=== PATIENT | male | born 1965 | race Caucasian/White ===

== ENCOUNTER 2018-06-02 06:29 | Observation (INO) ==
[2018-06-02 06:49] LABS: Basophils # 0.1 K/mm3 (0-0.2); Eosinophils # 0.3 K/mm3 (0.0-0.4); Eosinophils % 4.3 % (0.1-12.0); Hematocrit 43.8 % (42.0-52.0); Hemoglobin 15.4 g/dL (14.1-18.0); Lymphocytes # 2.5 K/mm3 (0.7-4.5); Lymphocytes % 33.1 K/mm3 (10-50); Mean Corpuscular HGB Conc 35.1 g/dL (31.8-35.4); Mean Corpuscular Hemoglobin 32.2 pg (27.0-31.2); Mean Corpuscular Volume 91.6 fl (80-94); Mean Platelet Volume 7.7 fl (7.4-10.4); Monocytes # 0.5 K/mm3 (0.1-1.0); Monocytes % 6.7 % (1.7-9.3); Neutrophils # 4.1 K/mm3 (1.8-7.8); Platelet Count 180 K/mm3 (142-424); Red Blood Count 4.78 M/mm3 (4.60-6.20); Red Cell Distribution Width 13.9 % (11.5-17.5); White Blood Count 7.5 K/mm3 (4.8-10.8)
[2018-06-02 07:15] LABS: Alanine Aminotransferase 50 U/L (12-78); Albumin Level 3.5 gm/dL (3.4-5.0); Albumin/Globulin Ratio 1.1 (1.1-1.8); Alkaline Phosphatase 70 U/L (46-116); Amylase 48 U/L (25-125); Anion Gap 13.2 mEq/L (5-15); Aspartate Amino Transferase 31 U/L (15-37); Bilirubin,Total 0.4 mg/dL (0.2-1.0); Blood Urea Nitrogen 16 mg/dL (7-18); Calcium 8.5 mg/dL (8.5-10.1); Carbon Dioxide 26 mmol/L (21.0-32.0); Chloride 105 mmol/L (98-107); Globulin 3.2 gm/dl (1.3-3.2); Potassium 4.2 mmoL/L (3.5-5.1); Sodium 140 mmol/L (136-145); Total Protein,Serum 6.7 gm/dL (6.4-8.2)
[2018-06-02 07:18] LABS: Glucose 132 mg/dL (74-106)
[2018-06-02 07:19] LABS: C-Reactive Protein < 0.2 mg/L (0.0-0.9)
[2018-06-02 07:40] LABS: Erythrocyte Sedimentation Rate 0 mm/hr (0-20)
--- NOTE | 2018-06-02 07:42 | Emergency Department Note ---
ED Disposition Condition on Discharge: Good - Critical Care Critical Care Time: No <Boston Kimble S - Last Filed: 06/02/18 08:05> Condition on Discharge: Fair - Critical Care Critical Care Time: No <Selvin Richardson - Last Filed: 06/02/18 10:08> Clinical Impression: Acute cholecystitis, Colitis, Prostate enlargement, Cholelithiasis, Prostatic mass, Diverticulosis Disposition: Still a Patient Instructions: DI for Acute Abdomen Referrals: Rolanda Acosta APRN [Primary Care Provider] - Attestation: On 06/02/18, the high probability of a clinically significant, sudden or life threatening deterioration of the following system(s) required my full and direct attention, intervention and personal management. The time I documented below is in addition to time spent performing reported procedures but includes the following listed in this critical care notation. Medical Decision Making - Medical Records Medical records reviewed: Yes: I reviewed the patient's medical records. - Abdirahman Inquiry Pt receiving controlled substance: No - Lab Data Lab results reviewed: Yes: I reviewed the patient's lab results. Result diagrams: 06/02/18 06:03 06/02/18 06:03 - CT Data CT Scan: Abdomen, Pelvis Time Received: 07:[address] Reviewed: Yes: I have viewed the radiologist's interpretation Preliminary Findings: Abnormal (gallstones and colitis and abn prostate ) - ECG Data Tracing #1 I reviewed this ECG and interpreted as documented below: Normal Sinus Rhythm: Yes Ischemic changes: non-specific ST-T wave changes <Boston Kimble S - Last Filed: 06/02/18 08:05> - Abdirahman Inquiry Pt receiving controlled substance: No Abdirahman was queried for this patient: No - Lab Data Lab results reviewed: Yes: I reviewed the patient's lab results. Result diagrams: 06/02/18 06:03 06/02/18 06:03 <Selvin Richardson - Last Filed: 06/02/18 10:08> Vital Signs: 06/02/18 06:29 06/02/18 07:26 06/02/18 08:10 Temperature 98.8 F Temperature Source Oral Pulse Rate [Right] 73 60 60 Respiratory Rate 20 Blood Pressure [Right Arm] 170/100 H 139/72 119/71 Blood Pressure Mean [Right Arm] 123 94 87 Blood Pressure Source [Right Arm] Automatic Cuff Automatic Cuff Blood Pressure Position [Right Arm] Supine Sitting 02 Sat by Pulse Oximetry 98 97 94 L Oxygen Delivery Method Room Air 06/02/18 09:08 06/02/18 09:30 Temperature Temperature Source Pulse Rate [Right] 63 64 Respiratory Rate Blood Pressure [Right Arm] 163/80 H 163/80 H Blood Pressure Mean [Right Arm] 107 107 Blood Pressure Source [Right Arm] Automatic Cuff Automatic Cuff Blood Pressure Position [Right Arm] Supine Supine 02 Sat by Pulse Oximetry 97 97 Oxygen Delivery Method - Lab Data Lab Results 06/02/18 06:03: WBC 7.5, RBC 4.78, Hgb 15.4, Hct 43.8, MCV 91.6, MCH 32.2 H, MCHC 35.1, RDW 13.9, Plt Count 180, MPV 7.7, Neut % (Auto) 55.0, Lymph % (Auto) 33.1, [place] % (Auto) 6.7, Eos % (Auto) 4.3, Baso % (Auto) 1.0, Neut # (Auto) 4.1, Lymph # (Auto) 2.5, [place] # (Auto) 0.5, Eos # (Auto) 0.3, Baso # (Auto) 0.1, ESR 0 06/02/18 06:03: Sodium 140, Potassium 4.2, Chloride 105, Carbon Dioxide 26, Anion Gap 13.2, BUN 16, Creatinine 1.22, Estimated Creat Clear 109, Estimated GFR 62, Est GFR ( Amer) 75, Glucose 132 H, Calcium 8.5, Total Bilirubin 0.4, AST 31, ALT 50, Alkaline Phosphatase 70, Troponin I < 0.02, C-Reactive Protein < 0.2, Total Protein 6.7, Albumin 3.5, Globulin 3.2, Albumin/Globulin Ra paulino 1.1, Amylase 48 06/02/18 06:03: Lipase 150 06/02/18 08:10: Urine Color Yellow, Urine Appearance Clear, Urine pH 5.5, Ur Specific [place] >= 1.030, Urine Protein Negative, Urine Glucose (UA) Negative, Urine Ketones Negative, Urine Blood Negative, Urine Nitrate Negative, Urine Bilirubin Negative, Urine Urobilinogen 0.2, Ur Leukocyte Esterase Negative, Urine RBC None, Urine WBC Occasional, Ur Squamous Epith Cells 3-5, Urine Bacteria 1+ Orders (Tests/Meds): ED MEDICATIONS Discontinued Medications Generic Name Dose Route Start Last Admin Trade Name Emely PRN Reason Stop Dose Admin Famotidine 20 mg 06/02/18 06:33 06/02/18 06:48 Pepcid 20mg/2ml Vial IV 06/02/18 06:34 20 mg ONCE ONE Administration Hydromorphone HCl 1 mg 06/02/18 08:19 06/02/18 08:21 Dilaudid 2mg/Ml Syringe IV 06/02/18 08:20 1 mg ONCE ONE Administration Sodium Chloride 1,000 mls @ 999 mls/hr 06/02/18 06:45 06/02/18 06:49 Sod Chlor 0.9% 1000ml Bag IV 06/02/18 07:45 999 mls/hr .Q1H1M TAMMY Administration Ketorolac Tromethamine 30 mg 06/02/18 06:33 06/02/18 06:48 Toradol 30mg/Ml Vial IV 06/02/18 06:34 30 mg ONCE ONE Administration Metoclopramide HCl 10 mg 06/02/18 06:33 06/02/18 06:48 Reglan 10mg/2ml Vial IVP 06/02/18 06:34 10 mg ONCE ONE Administration Ondansetron HCl 4 mg 06/02/18 06:33 06/02/18 06:49 Zofran 4mg/2ml Vial IV 06/02/18 06:34 4 mg ONCE ONE Administration Ondansetron HCl 4 mg 06/02/18 08:20 06/02/18 08:21 Zofran 4mg/2ml Vial IV 06/02/18 08:21 4 mg ONCE ONE Administration ORDERS Category Date Time Status UA [Urinalysis and Microscopic] Stat Lab 06/02/18 08:10 Ordered Medical Decision Narrative: S;53 years old white male edema hypertension and CVA with no residual 2-1/2 years ago, also he has a prosthetic disease. The patient presented to the ED this morning with a 3-week history of upper abdominal pain following eating [place] and [place] food mostly greasy food associated with nausea radiating across his abdomen anterior posteriorly, in his own words "like a clamp". This morning the pain became worse rated 6/10 presented to the ED orders given Toradol for pain and later was given dilaudid for pain control 2/10. She denies having fever chills jaundice vomiting hematemesis coffee-ground emesis melanotic stool or diarrhea. O: VSS are afebrile, stable except for BP 170/100 mmhg. Patient is alert oriented x3 provided a detailed history above. Eye examination is PERRL without a jaundice, examination of the abdomen was obese soft with tenderness that is maximum over the right upper quadrant with positive Lennon sign,no guarding no rigidity no cross tenderness no rebound. Chestexam: is barrel-shaped clear to auscultation anteriorly and posteriorly, Cardiac exam: was regular rate and rhythm without a murmur. Lower extremity examination there was no edema good cap refill. Rectal examination was painless, good tone, mildly enlarged prostate with no nodule palpable. CXR: No acute. EKG was normal sinus rhythm baseline artifact 69/min no acute finding. CT scan of the abdomen: was positive for cholelithiasis, liver steatosis, enlarged prostate with a hypodense area anteriorly mid 5.2 x 3.5cm. Patient was signed out to me pending ultrasound to exclude cholecystitis. A/P: 1- GB stone 2- liver steatosis 3- prostatic mass 4- HTN 5- Hx of CVA 6- negative cardiac cth 2 -3 yrs ago. US is pending. 0950 rport: MPRESSION: 1. Limited study with fatty liver. 2. Limited evaluation of the gallbladder. There is question of small stones versus sludge. There is no gallbladder wall thickening, pericholecystic fluid, or ductal dilatation. (Boston Kimble) S;53 years old white male edema hypertension and CVA with no residual 2-1/2 years ago, also he has a prosthetic disease. The patient presented to the ED this morning with a 3-week history of upper abdominal pain following eating [place] and [place] food mostly greasy food associated with nausea radiating across his abdomen anterior posteriorly, in his own words "like a clamp". This morning the pain became worse rated 6/10 presented to the ED orders given Toradol for pain and later was given dilaudid for pain control 2/10. She denies having fever chills jaundice vomiting hematemesis coffee-ground emesis melanotic stool or diarrhea. O: VSS are afebrile, stable except for BP 170/100 mmhg. Patient is alert oriented x3 provided a detailed history above. Eye examination is PERRL without a jaundice, examination of the abdomen was obese soft with tenderness that is maximum over the right upper quadrant with positive Lennon sign,no guarding no rigidity no cross tenderness no rebound. Chestexam: is barrel-shaped clear to auscultation anteriorly and posteriorly, Cardiac exam: was regular rate and rhythm without a murmur. Lower extremity examination there was no edema good cap refill. Rectal examination was painless, good tone, mildly enlarged prostate with no nodule palpable. CXR: No acute. EKG was normal sinus rhythm baseline artifact 69/min no acute finding. CT scan of the abdomen: was positive for cholelithiasis, liver steatosis, enlarged prostate with a hypodense area anteriorly mid 5.2 x 3.5cm. Patient was signed out to me pending ultrasound to exclude cholecystitis. A/P: 1- GB stone 2- liver steatosis 3- prostatic mass 4- HTN 5- Hx of CVA 6- negative cardiac cth 2 -3 yrs ago. US is pending. 0950 US rport: MPRESSION: 1. Limited study with fatty liver. 2. Limited evaluation of the gallbladder. There is question of small stones versus sludge. There is no gallbladder wall thickening, pericholecystic fluid, or ductal dilatation. [address] Clayton the on-call surgeon who agreed to admit the patient for observation and possible surgery. I discussed with the patient his prostate abnormality and he requested to be seen by urology I be placing a consult. (Selvin Richardson) Nausea/Vomiting/Diarrhea HPI - General Mode of Arrival: Ambulatory Source of Information: Patient, Spouse, Medical Record Limitations: No Limitations Description of Symptoms (Recalled from ER Triage Doc. by RN): Pt c/o mid epigastric pain with left rib pain that radiates to arm. Denies vomiting, dizziness, or any other symptoms but does have nausea. - History of Present Illness MD complaint: nausea, vomiting, abdominal pain Onset (ago): day(s) Associated Abdominal Pain: Yes Location of pain: RUQ, epigastric Severity: moderate Associated symptoms: denies other symptoms, nausea/vomiting <Boston Kimble - Last Filed: 06/02/18 08:05> <Selvin Richardson - Last Filed: 06/02/18 10:08> - General Chief complaint: Abdominal Pain Stated complaint: abdominal pain Time Seen by Provider: 06/02/18 07:00 - History of Present Illness HPI Narrative: pt with upper abd pain which has inc in intensity over the last few weeks , worse with meals - pt has no fever and no diarrhea - he has had prev cva 3 yrs ago with sl lt upper ext residual- he reports overactive bladder denied any kn own prostate issues and not seen urology for 5 yrs (Boston Kimble) pt with upper abd pain which has inc in intensity over the last few weeks , worse with meals - pt has no fever and no diarrhea - he has had prev cva 3 yrs ago with sl lt upper ext residual- he reports overactive bladder denied any known prostate issues and not seen urology for 5 yrs (Selvin Richardson) - Related Data Home Medications Medication Instructions Recorded Confirmed Allopurinol [Allopurinol 300mg 300 mg PO DAILY 06/02/18 06/02/18 tablet] Amlodipine Besylate [Amlodipine 10 mg PO DAILY 06/02/18 06/02/18 10mg Tab] Aspirin [Aspirin 325mg Tab] 325 mg PO DAILY 06/02/18 06/02/18 Carvedilol [Carvedilol 3.125mg Tab] 3.125 mg PO DAILY 06/02/18 06/02/18 Diclofenac Sodium [Diclofenac 75mg 75 mg PO BID 06/02/18 06/02/18 Tab] Sildenafil Citrate [Sildenafil] 20 mg PO NEEDED PRN 06/02/18 06/02/18 Tamsulosin HCl [Flomax 0.4mg 0.4 mg PO HS 06/02/18 06/02/18 capsule] buPROPion HCl [Bupropion Xl] 150 mg PO DAILY 06/02/18 06/02/18 Allergies Allergy/AdvReac Type Severity Reaction Status Date / Time Sulfa (Sulfonamide Allergy Verified 06/02/18 06:52 Antibiotics) [facility] History I have reviewed the patient's past medical history: Yes - Social History Smoking Status: Never smoker Alcohol Intake: never - Psychiatric History Expresses thoughts of harming self/others: None Suicide Plan Description: No Plan <Boston Kimble - Last Filed: 06/02/18 08:05> ROS Obtained: Yes All systems reviewed & no additional complaints - Constitutional Constitutional: Denies fever(s) - Eyes Eyes: Denies change in vision - ENT Ears, Nose, Mouth, and Throat: Denies sore throat - Cardiovascular Cardiovascular: Denies chest pain - Respiratory Respiratory: No cough - Gastrointestinal Gastrointestingal: Reports: abdominal pain, nausea, vomiting. Denies: diarrhea - Genitourinary Male Genitourinary: Denies flank pain, Denies hematuria, Reports urinary frequency - Musculoskeletal Musculoskeletal: Denies joint pain - Integumentary/Breasts Skin/Breast: Denies rash - Neurologic Neurologic: Denies headache(s), Denies seizure-like activity <Boston Kimble - Last Filed: 06/02/18 08:05> Physical Exam - General General appearance: in no apparent distress - Head Head exam: normocephalic - Eye Eye exam: Present: PERRL, EOMI - ENT ENT exam: Present: mucous membranes moist - Neck Neck exam: Present: trachea midline - Respiratory Respiratory exam: Present: normal lung sounds bilaterally - Cardiovascular Cardiovascular exam: Present: regular rate, systolic murmur - Abdominal Exam Abdominal exam: Present: soft, tenderness, Lennon's sign Abdominal tenderness: Present: RUQ, moderate - Extremities Exam Extremities exam: Absent: calf tenderness - Neurological Exam Neurological exam: Present: alert, oriented X3, CN II-XII intact - Psychiatric Psychiatric exam: Present: normal affect - Skin Skin exam: Absent: rash <Boston Kimble - Last Filed: 06/02/18 08:05>
[2018-06-02 08:24] LABS: Microscopic, Urine URINE MICROSCOPIC (MICROSCOPIC)
[2018-06-02 08:28] LABS: Appearance,Urine CLEAR (Clear); Bilirubin,Urine Negative (Negative); Blood, Urine Negative (Negative); Color,Urine YELLOW (Yellow); Glucose,Urine (UA) Negative (Negative); Ketones,Urine Negative (Negative); Leukocyte Esterase,Urine Negative (Negative); PH,Urine 5.5 (5.0-8.5); Protein,Urine Negative (Negative); Specific Gravity, Urine >= 1.030 (1.005-1.030); Urobilinogen,Urine 0.2 EU/dl (0.2)
[2018-06-02 08:36] LABS: Bacteria,Urine 1+ /lpf; WBC,Urine Occasional #/hpf (0-3)
--- NOTE | 2018-06-02 12:38 | History & Physical Report ---
HPI HPI: This is a 53-year-old gentleman who presented to the emergency department this morning with a 3-week history of upper abdominal pain. He states that his symptoms are "worse with greasy food". Some associated nausea. No jaundice. No fevers. Please see a forwarded copy of HPI from the emergency department evaluation below: 53 years old white male edema hypertension and CVA with no residual 2-1/2 years ago, also he has a prosthetic disease. The patient presented to the ED this morning with a 3-week history of upper abdominal pain following eating [place] and [place] food mostly greasy food associated with nausea radiating across his abdomen anterior posteriorly, in his own words "like a clamp". This morning the pain became worse rated 6/10 presented to the ED orders given Toradol for pain and later was given dilaudid for pain control 10/03. She denies having fever chills jaundice vomiting hematemesis coffee-ground emesis melanotic stool or diarrhea. [facility] History Medical History: Reports:: Cerebrovascular Accident, Hypertension - *Social History Smoking Status: Never smoker Alcohol Intake: never - Psychiatric History Expresses thoughts of harming self/others: None Suicide Plan Description: No Plan Review of Systems - Constitutional Denies chills - Eyes Denies change in vision - ENT Denies change in voice - *Cardiovascular Denies chest pain - *Respiratory Denies cough - *Gastrointestinal Reports abdominal pain, Reports nausea, Denies bright, red blood in stools, Denies black, tarry stools - *Genitourinary Denies painful urination - *Musculoskeletal Denies abnormal walking - Integumentary/Breasts Denies change in skin color - *Neurologic Denies abnormal movements, Denies abnormal speech, Denies headache(s), Denies seizure-like activity - Psychiatric Denies anxiety - Endocrine Denies cold intolerance - Hematologic/Lymphatic Denies easy bleeding - Allergic/Immunologic Reports GI upset with certain foods Meds Home Medications Medication Instructions Recorded Confirmed Type Allopurinol [Allopurinol 300mg 300 mg PO DAILY 06/02/18 06/02/18 History tablet] Amlodipine Besylate [Amlodipine 10 mg PO DAILY 06/02/18 06/02/18 History 10mg Tab] Aspirin [Aspirin 325mg Tab] 325 mg PO DAILY 06/02/18 06/02/18 History Carvedilol [Carvedilol 3.125mg Tab] 3.125 mg PO DAILY 06/02/18 06/02/18 History Diclofenac Sodium [Diclofenac 75mg 75 mg PO BID 06/02/18 06/02/18 History Tab] Sildenafil Citrate [Sildenafil] 20 mg PO NEEDED PRN 06/02/18 06/02/18 History Tamsulosin HCl [Flomax 0.4mg 0.4 mg PO HS 06/02/18 06/02/18 History capsule] buPROPion HCl [Bupropion Xl] 150 mg PO BID 06/02/18 06/02/18 History Allergies Allergy/AdvReac Type Severity Reaction Status Date / Time Sulfa (Sulfonamide Allergy Verified 06/02/18 06:52 Antibiotics) Exam Vital signs and Labs for Last 24 Hours: Temp Pulse Resp BP Pulse Ox 98.9 F 67 16 120/73 96 06/02/18 12:26 06/02/18 12:26 06/02/18 12:26 06/02/18 12:26 06/02/18 11:00 Laboratory Results - last 24 hr 06/02/18 06:03: WBC 7.5, RBC 4.78, Hgb 15.4, Hct 43.8, MCV 91.6, MCH 32.2 H, MCHC 35.1, RDW 13.9, Plt Count 180, MPV 7.7, Neut % (Auto) 55.0, Lymph % (Auto) 33.1, [place] % (Auto) 6.7, Eos % (Auto) 4.3, Baso % (Auto) 1.0, Neut # (Auto) 4.1, Lymph # (Auto) 2.5, [place] # (Auto) 0.5, Eos # (Auto) 0.3, Baso # (Auto) 0.1, ESR 0 06/02/18 06:03: Sodium 140, Potassium 4.2, Chloride 105, Carbon Dioxide 26, Anion Gap 13.2, BUN 16, Creatinine 1.22, Estimated Creat Clear 109, Estimated GFR 62, Est GFR ( Amer) 75, Glucose 132 H, Calcium 8.5, Total Bilirubin 0.4, AST 31, ALT 50, Alkaline Phosphatase 70, Troponin I < 0.02, C-Reactive Protein < 0.2, Total Protein 6.7, Albumin 3.5, Globulin 3.2, Albumin/Globulin Ratio 1.1, Amylase 48 06/02/18 06:03: Lipase 150 06/02/18 08:10: Urine Color Yellow, Urine Appearance Clear, Urine pH 5.5, Ur Specific [place] >= 1.030, Urine Protein Negative, Urine Glucose (UA) Negative, Urine Ketones Negative, Urine Blood Negative, Urine Nitrate Negative, Urine Bilirubin Negative, Urine Urobilinogen 0.2, Ur Leukocyte Esterase Negative, Urine RBC None, Urine WBC Occasional, Ur Squamous Epith Cells 3-5, Urine Bacteria 1+ I & O for Last 24 hours: Intake & Output 05/31/18 06/01/18 06/02/18 06/03/18 11:59 11:59 11:59 11:59 Weight 240 lb 241 lb 4 oz - Constitutional no acute distress - *Routine HEENT Exam Head: Present: normocephalic, atraumatic - *Routine Neck Exam Present: full ROM - Routine Chest/Breast/Axilla Exam Chest wall: Absent: tenderness - *Routine Respiratory Exam Absent: respiratory distress - *Routine Cardiovascular Exam Present: RRR - *Routine Abdominal Exam Present: soft, tenderness. Absent: distended, rebound - *Routine Extremities Exam Present: full ROM. Absent: cyanosis, clubbing - Routine Back/Spine/Pelvis Exam Back/Spine: Present: full ROM - *Routine Skin Exam Present: intact - *Routine Neurological Exam Present: alert, oriented X3 - Routine Psychiatric Exam Present: normal affect Results - Results Lab Results Last 24 Hours:: Laboratory Results - last 24 hr 06/02/18 06:03: WBC 7.5, RBC 4.78, Hgb 15.4, Hct 43.8, MCV 91.6, MCH 32.2 H, MCHC 35.1, RDW 13.9, Plt Count 180, MPV 7.7, Neut % (Auto) 55.0, Lymph % (Auto) 33.1, [place] % (Auto) 6.7, Eos % (Auto) 4.3, Baso % (Auto) 1.0, Neut # (Auto) 4.1, Lymph # (Auto) 2.5, [place] # (Auto) 0.5, Eos # (Auto) 0.3, Baso # (Auto) 0.1, ESR 0 06/02/18 06:03: Sodium 140, Potassium 4.2, Chloride 105, Carbon Dioxide 26, Anion Gap 13.2, BUN 16, Creatinine 1.22, Estimated Creat Clear 109, Estimated GFR 62, Est GFR ( Amer) 75, Glucose 132 H, Calcium 8.5, Total Bilirubin 0.4, AST 31, ALT 50, Alkaline Phosphatase 70, Troponin I < 0.02, C-Reactive Protein < 0.2, Total Protein 6.7, Albumin 3.5, Globulin 3.2, Albumin/Globulin Ratio 1.1, Amylase 48 06/02/18 06:03: Lipase 150 06/02/18 08:10: Urine Color Yellow, Urine Appearance Clear, Urine pH 5.5, Ur Specific [place] >= 1.030, Urine Protein Negative, Urine Glucose (UA) Negative, Urine Ketones Negative, Urine Blood Negative, Urine Nitrate Negative, Urine Bilirubin Negative, Urine Urobilinogen 0.2, Ur Leukocyte Esterase Negative, Urine RBC None, Urine WBC Occasional, Ur Squamous Epith Cells 3-5, Urine Bacteria 1+ Assessment and Plan (1) Cholelithiasis Current visit: Yes Status: Acute Category: Medical Code(s): K80.20 - Calculus of gallbladder without cholecystitis without obstruction (2) Acute cholecystitis Current visit: Yes Status: Acute Category: Medical Code(s): K81.0 - Acute cholecystitis The patient is being scheduled for laparoscopic cholecystectomy to be performed later today. I have discussed the risks and benefits including, but not limited to: Bleeding Infection Damage to surrounding tissue Inherent risks of sedation The patient agrees to proceed. (3) Prostate enlargement Current visit: Yes Status: Acute Category: Medical Code(s): N40.0 - Benign prostatic hyperplasia without lower urinary tract symptoms Urology consultation pending (4) Prostatic mass Current visit: Yes Status: Acute Category: Medical Code(s): N42.9 - Disorder of prostate, unspecified
--- NOTE | 2018-06-02 14:46 | Progress Note ---
[facility] Anesthesia Checklist - Patient Identification Patient Identification: Arm Band, Verbal (Name & ) - Structural Data Admitted From: Inpatient Planned Operative Procedure/s: lap choly Consent for Planned Operative Procedure(s) Verified: Yes Verified Documents: Surgical Consent, History and Physical - NPO Status Verified Time NPO: 00:00 - Chart Verification Results Verified: CBC, BMP - Additional verifications Patient : No Anesthesia Reactions: No Hx Blood Transfusions: No Blood Transfusion Reaction: No Cephalosporin Allergy: No Previous Colonoscopy: No - Cardiovascular Assessment Heart Sounds: S1 & S2 Pulse Strength: Baseline Pulse Rhythm: Regular Peripheral Edema: No - Airway Assessment C-Spine Mobility Assessed: Yes TMJ Mobility Assessed: Yes Dentition: Good Dentition - Neurological Assessment Level of Consciousness: Awake, Alert, Appropriate Hx Seizures: No Numbness or tingling in extremities: No - Anesthesia Plan Anesthesia Risk discussed: Yes Anesthesia Plan: Verified ASA Class: II Anesthesia Type: General [facility] History I have reviewed the patient's past medical history: Yes Medical History: Reports:: Cerebrovascular Accident, Hypertension Other Surgeries: Yes: No Previous Surgery Amputation: No Fractures: No - *Social History Smoking Status: Never smoker Alcohol Intake: never - Psychiatric History Expresses thoughts of harming self/others: None Suicide Plan Description: No Plan
--- NOTE | 2018-06-02 15:33 | Pharmacy Consult Notes ---
[facility] Pharmacy VTE Monitoring - Patient Demographics Admission date: 06/02/18 Report Date: 06/02/18 Time: 15:32 Allergies/Adverse Reactions: Patient Allergies Sulfa (Sulfonamide Antibiotics) Allergy (Verified 06/02/18 06:52) Height: 1.78 m Weight: 109.429 kg Patient Problems: Current Active Problems Acute cholecystitis (Acute) Colitis (Acute) Prostate enlargement (Acute) Cholelithiasis (Acute) Prostatic mass (Acute) Diverticulosis (Acute) - VTE Risk Labs: VTE Related Lab Results Hgb 15.4 g/dL (14.1-18.0) 06/02/18 06:03 Hct 43.8 % (42.0-52.0) 06/02/18 06:03 Plt Count 180 K/mm3 (142-424) 06/02/18 06:03 BUN 16 mg/dL (7-18) 06/02/18 06:03 Creatinine 1.22 mg/dL (0.70-1.30) 06/02/18 06:03 Estimated Creat Clear 109 mL/min (0-300) 06/02/18 06:03 Was VTE Risk Assessment Performed: Yes VTE Score: 2 VTE Risk Level: Low Risk - Prophylaxis VTE Prophylaxis Ordered?: Yes Types of VTE Prophylaxis: TEDS Knee High Location of Applied Device: Bilateral Lower Extremeties - VTE Diagnosis Confirmed Treatment or plan recommended: Continue Current Treatment
--- NOTE | 2018-06-02 17:35 | Operative Note ---
Date of procedure: 06/02/18 Pre-op Diagnosis:: Acute calculus cholecystitis Post-op Diagnosis:: Same Procedure performed:: Laparoscopic cholecystectomy Surgeon:: Felipe Clayton MD VECTOR CONTROL ASSISTANT:: Randell Scanlon Anesthesia: GETA Estimated blood loss (mL): 25 Operative findings:: Significant gallbladder distention Dense adhesions between gallbladder wall and liver Thickening in and around the infundibulum "Dome down" approach utilized Endoloops and clips for control of cystic duct stump/infundibulum Operative note:: After informed consent was obtained, the patient was taken to the operating room and placed in the supine position. General anesthesia was induced and the abdomen was prepped and draped in a sterile fashion. After infiltration with local anesthetic an infraumbilical incision was made. A Veress needle was placed in position. The abdomen was insufflated. A 5 mm optical trocar was placed in position. Under direct visualization, a 12 mm trocar was placed in the subxiphoid position and 2 additional 5 mm trocars were placed in the right upper quadrant. The gallbladder was elevated up and over the liver margin. The tissue around the cystic duct was carefully dissected. Significant distention of the gallbladder and adhesions between the gallbladder and liver margin were noted. Careful dissection was utilized to free the tissue. Harmonic elly were utilized to take the cystic artery. The infundibulum was thickened and 2 clips were placed; however, they did not cover the entirety of the margin. The decision was made to proceed with a "dome down approach" whereby the gallbladder and liver were utilizing harmonic elly. Endoloops (x2) were then placed in position at the infundibulum/cystic duct stump. Harmonic elly were then used to transect the infundibulum. The gallbladder was placed in a retrieval bag and removed through the subxiphoid trocar site. The right upper q uadrant was thoroughly irrigated. No active bleeding or bile leak was noted. Fascia at the subxiphoid trocar site was reapproximated utilizing the NeoClose device. The remaining trocars were removed. All wounds were irrigated and skin was closed with 4-0 Monocryl in a subcuticular fashion. Steri-Strips were applied. The patient's anesthetic agents were reversed and extubation was completed prior to transfer to recovery in stable condition. Condition: stable Disposition: PACU Specimens:: Gallbladder Complications:: No immediate
--- NOTE | 2018-06-02 17:45 | Progress Note ---
[facility] Anesthesia Record Part I Intake, IV Amount: 600 Estimated blood loss (mL): 10 Urine output (mL): 0 Blood Products used (#): none Blood Pressure: 119/73 SaO2: 92 Pulse Rate: 62 Respiratory Rate: 18 Temperature: 97.6 F Patient is:: Awake, Nasal O2, Stable Stable to PACU at:: 17:41
--- NOTE | 2018-06-02 17:46 | Progress Note ---
[facility] Anesthesia Record Part II Discharge Time: 11:00 Destination: Medical Surgical Department PACU nurse assessment reviewed?: Yes Patient Condition:: Good Anesthesia Complications:: None
[2018-06-03 06:26] LABS: Basophils % 0.2 % (0.1-2.0); Eosinophils % 0.1 % (0.1-12.0); Hematocrit 41.1 % (42.0-52.0); Lymphocytes # 0.8 K/mm3 (0.7-4.5); Lymphocytes % 8.5 K/mm3 (10-50); Mean Corpuscular HGB Conc 34.1 g/dL (31.8-35.4); Mean Corpuscular Hemoglobin 31.4 pg (27.0-31.2); Mean Corpuscular Volume 92.1 fl (80-94); Mean Platelet Volume 7.7 fl (7.4-10.4); Monocytes # 0.4 K/mm3 (0.1-1.0); Monocytes % 3.8 % (1.7-9.3); Neutrophils # 8.1 K/mm3 (1.8-7.8); Neutrophils % 87.4 % (37.0-80.0); Platelet Count 187 K/mm3 (142-424); Red Blood Count 4.47 M/mm3 (4.60-6.20); Red Cell Distribution Width 13.8 % (11.5-17.5); White Blood Count 9.3 K/mm3 (4.8-10.8)
[2018-06-03 06:32] LABS: Albumin Level 3.4 gm/dL (3.4-5.0); Albumin/Globulin Ratio 1.1 (1.1-1.8); Anion Gap 11.5 mEq/L (5-15); Bilirubin,Total 0.7 mg/dL (0.2-1.0); Calcium 8.5 mg/dL (8.5-10.1); Globulin 3.2 gm/dl (1.3-3.2); Potassium 4.5 mmoL/L (3.5-5.1); Total Protein,Serum 6.6 gm/dL (6.4-8.2)
--- NOTE | 2018-06-03 06:59 | Progress Note ---
Subjective Patient reports: feels better Exam Vital signs and Labs for Last 24 Hours: Temp Pulse Resp BP Pulse Ox 97.6 F 82 16 166/84 H 98 06/03/18 03:50 06/03/18 03:50 06/03/18 03:50 06/03/18 03:50 06/03/18 03:50 Laboratory Results - last 24 hr 06/02/18 06:03: ESR 0 06/02/18 06:03: Sodium 140, Potassium 4.2, Chloride 105, Carbon Dioxide 26, Anion Gap 13.2, BUN 16, Creatinine 1.22, Estimated Creat Clear 109, Estimated GFR 62, Est GFR ( Amer) 75, Glucose 132 H, Calcium 8.5, Total Bilirubin 0.4, AST 31, ALT 50, Alkaline Phosphatase 70, Troponin I < 0.02, C-Reactive Protein < 0.2, Total Protein 6.7, Albumin 3.5, Globulin 3.2, Albumin/Globulin Ratio 1.1, Amylase 48 06/02/18 06:03: Lipase 150 06/02/18 08:10: Urine Color Yellow, Urine Appearance Clear, Urine pH 5.5, Ur Specific [place] >= 1.030, Urine Protein Negative, Urine Glucose (UA) Negative, Urine Ketones Negative, Urine Blood Negative, Urine Nitrate Negative, Urine Bilirubin Negative, Urine Urobilinogen 0.2, Ur Leukocyte Esterase Negative, Urine RBC None, Urine WBC Occasional, Ur Squamous Epith Cells 3-5, Urine Bacteria 1+ 06/03/18 05:53: WBC 9.3, RBC 4.47 L, Hgb 14.0 L, Hct 41.1 L, MCV 92.1, MCH 31.4 H, MCHC 34.1, RDW 13.8, Plt Count 187, MPV 7.7, Neut % (Auto) 87.4 H, Lymph % (Auto) 8.5 L, [place] % (Auto) 3.8, Eos % (Auto) 0.1, Baso % (Auto) 0.2, Neut # (Auto) 8.1 H, Lymph # (Auto) 0.8, [place] # (Auto) 0.4, Eos # (Auto) 0.0, Baso # (Auto) 0.0 06/03/18 05:53: Sodium 136, Potassium 4.5, Chloride 104, Carbon Dioxide 25, Anion Gap 11.5, BUN 14, Creatinine 1.25, Estimated Creat Clear 107, Estimated GFR 61, Est GFR ( Amer) 73, Glucose 148 H, Calcium 8.5, Total Bilirubin 0.7, AST 77 H D, ALT 138 H D, Alkaline Phosphatase 63, Total Protein 6.6, Albumin 3.4, Globulin 3.2, Albumin/Globulin Ratio 1.1 I & O for Last 24 hours: Intake & Output 05/31/18 06/01/18 06/02/18 06/03/18 11:59 11:59 11:59 11:59 Intake Total 700 / 700 Output Total 800 / 800 Balance -100 / -100 Weight 240 lb 241 lb 4 oz - Constitutional no acute distress - *Routine Respiratory Exam Absent: respiratory distress - *Routine Cardiovascular Exam Present: RRR - *Routine Abdominal Exam Present: soft Comments: Dressings intact. No erythema. Progress Note: A&P (1) Cholelithiasis Status: Acute Current Visit: Yes (2) Acute cholecystitis Status: Acute Assessment and plan: Stable status post laparoscopic cholecystectomy Advance diet Likely discharge home later today Current Visit: Yes (3) Prostate enlargement Status: Acute Current Visit: Yes (4) Prostatic mass Status: Acute Current Visit: Yes
[2018-06-03 08:48] LABS: Lymphocytes % 7 % (10-50); Monocytes % 3 % (2-9); Neutrophils % 90 % (42-76); Total Cells Counted 100
[2018-06-03 08:51] LABS: Stomatocytes 1+
--- NOTE | 2018-06-03 13:08 | Discharge Summary ---
General - General Admission date:: 06/02/18 Discharge date: 06/03/18 HPI HPI: This is a 53-year-old gentleman who presented to the emergency department this morning with a 3-week history of upper abdominal pain. He states that his symptoms are "worse with greasy food". Some associated nausea. No jaundice. No fevers. Please see a forwarded copy of HPI from the emergency department evaluation below: 53 years old white male edema hypertension and CVA with no residual 2-1/2 years ago, also he has a prosthetic disease. The patient presented to the ED this morning with a 3-week history of upper abdominal pain following eating Wallisian and Greek food mostly greasy food associated with nausea radiating across his abdomen anterior posteriorly, in his own words "like a clamp". This morning the pain became worse rated 6/10 presented to the ED orders given Toradol for pain and later was given dilaudid for pain control 2/10. She denies having fever chills jaundice vomiting hematemesis coffee-ground emesis melanotic stool or diarrhea. Hospital Course Hospital Course: The patient underwent laparoscopic cholecystectomy. Please see operative report for detail. He remained afebrile stable normal vital signs and was deemed appropriate for discharge on postoperative day 1. Note: The patient did have an enlarged prostate noted radiographically and concerns regarding possible mass lesion. PSA was drawn in the emergency department. He was seen by the urology service and further evaluation in the outpatient setting is planned. Objective Vital signs: Temp Pulse Resp BP Pulse Ox 98.3 F 81 18 162/91 H 98 06/03/18 08:00 06/03/18 08:00 06/03/18 08:00 06/03/18 08:00 06/03/18 03:50 no acute distress - *Routine HEENT Exam Head: Present: normocephalic, atraumatic - *Routine Neck Exam Present: full ROM - Routine Chest/Breast/Axilla Exam Chest wall: Absent: tenderness - *Routine Respiratory Exam Absent: respiratory distress - *Routine Cardiovascular Exam Present: RRR - *Routine Abdominal Exam Present: soft, tenderness. Absent: rebound, guarding - *Routine Extremities Exam Present: full ROM - Routine Back/Spine/Pelvis Exam Back/Spine: Present: full ROM - *Routine Skin Exam Present: intact - *Routine Neurological Exam Present: alert - Routine Psychiatric Exam Present: normal affect Results Labs on day of discharge: Labs from last 24 hours 06/03/18 06/03/18 05:53 05:53 WBC 9.3 RBC 4.47 L Hgb 14.0 L Hct 41.1 L MCV 92.1 MCH 31.4 H MCHC 34.1 RDW 13.8 Plt Count 187 MPV 7.7 Neut % (Auto) 87.4 H Lymph % (Auto) 8.5 L [place] % (Auto) 3.8 Eos % (Auto) 0.1 Baso % (Auto) 0.2 Neut # (Auto) 8.1 H Lymph # (Auto) 0.8 [place] # (Auto) 0.4 Eos # (Auto) 0.0 Baso # (Auto) 0.0 Total Counted 100 Neutrophils % (Manual) 90 H Lymphocytes % (Manual) 7 L Monocytes % (Manual) 3 Platelet Estimate Normal Poikilocytosis 1+ Stomatocytes 1+ Sodium 136 Potassium 4.5 Chloride 104 Carbon Dioxide 25 Anion Gap 11.5 BUN 14 Creatinine 1.25 Estimated Creat Clear 107 Estimated GFR 61 Est GFR ( Amer) 73 Glucose 148 H Calcium 8.5 Total Bilirubin 0.7 AST 77 H D ALT 138 H D Alkaline Phosphatase 63 Total Protein 6.6 Albumin 3.4 Globulin 3.2 Albumin/Globulin Ratio 1.1 DS: Diagnosis - Discharge Diagnosis (1) Cholelithiasis Status: Acute (2) Acute cholecystitis Status: Acute (3) Prostate enlargement Status: Acute (4) Prostatic mass Status: Acute Discharge Plan - Patient Discharge Instructions ACTIVITY: No heavy lifting DIET: advance to your usual diet - Follow up Plan Follow up with: Felipe Clayton MD [Staff Physician] - (1-2 weeks) Mando Nino MD [Staff Physician] - (1-2 weeks) Disposition: Home, Self-Skilled Nursing Medications: Home Medications Medication Instructions Recorded Confirmed Type Allopurinol [Allopurinol 300mg 300 mg PO DAILY 06/02/18 06/02/18 History tablet] Amlodipine Besylate [Amlodipine 10 mg PO DAILY 06/02/18 06/02/18 History 10mg Tab] Aspirin [Aspirin 325mg Tab] 325 mg PO DAILY 06/02/18 06/02/18 History Benazepril HCl 40 mg PO DAILY 06/02/18 06/02/18 History Carvedilol [Carvedilol 3.125mg Tab] 3.125 mg PO BID 06/02/18 06/02/18 History Diclofenac Sodium [Diclofenac 75mg 75 mg PO BID 06/02/18 06/02/18 History Tab] Sildenafil Citrate [Sildenafil] 20 mg PO NEEDED PRN 06/02/18 06/02/18 History Tamsulosin HCl [Flomax 0.4mg 0.4 mg PO HS 06/02/18 06/02/18 History capsule] buPROPion HCl [Bupropion Xl] 150 mg PO BID 06/02/18 06/02/18 History Prescriptions/Medication Reconciliation: Continue Tamsulosin HCl [Flomax 0.4mg capsule] 0.4 mg PO HS Diclofenac Sodium [Diclofenac 75mg Tab] 75 mg PO BID Aspirin [Aspirin 325mg Tab] 325 mg PO DAILY Amlodipine Besylate [Amlodipine 10mg Tab] 10 mg PO DAILY Sildenafil Citrate [Sildenafil] 20 mg PO NEEDED PRN PRN Reason: Erectile dysfunction buPROPion HCl [Bupropion Xl] 150 mg PO BID Allopurinol [Allopurinol 300mg tablet] 300 mg PO DAILY Carvedilol [Carvedilol 3.125mg Tab] 3.125 mg PO BID Benazepril HCl 40 mg PO DAILY
--- NOTE | 2018-06-03 13:39 | Consult Report ---
*Admission Date: 06/02/18 *Chief complaint: Abdominal pain *History of present illness: Patient is a 53-year-old white male admitted to the hospital yesterday with abdominal pain. Urology is consulted for a CT finding of prostatic enlargement with slight decreased attenuation in the anterior aspect of the prostate which is nonspecific. Patient states history of some nocturia 5-6 times an evening which improved with tamsulosin and now he states he gets up 2-3 times. His white count was within normal limits his kidney function is normal pancreatic enzymes are normal. Do not see a PSA on the chart. Prostatic examination in the emergency room there was some prostatic enlargement but no focal masses. [facility] History Medical History: Reports:: Cerebrovascular Accident, Hypertension Denies:: Seizures Other Medical History: Denies: Blood Transfusion Reaction Other Surgeries: Yes: No Previous Surgery Amputation: No Fractures: No - *Social History Smoking Status: Never smoker Alcohol Intake: never - Psychiatric History Expresses thoughts of harming self/others: None Suicide Plan Description: No Plan Review of Systems - *Neurologic Denies abnormal walking, Denies abnormal movements, Denies abnormal speech, Denies headache(s), Denies seizure-like activity Meds Home Medications Medication Instructions Recorded Confirmed Type Allopurinol [Allopurinol 300mg 300 mg PO DAILY 06/02/18 06/02/18 History tablet] Amlodipine Besylate [Amlodipine 10 mg PO DAILY 06/02/18 06/02/18 History 10mg Tab] Aspirin [Aspirin 325mg Tab] 325 mg PO DAILY 06/02/18 06/02/18 History Benazepril HCl 40 mg PO DAILY 06/02/18 06/02/18 History Carvedilol [Carvedilol 3.125mg Tab] 3.125 mg PO BID 06/02/18 06/02/18 History Diclofenac Sodium [Diclofenac 75mg 75 mg PO BID 06/02/18 06/02/18 History Tab] Sildenafil Citrate [Sildenafil] 20 mg PO NEEDED PRN 06/02/18 06/02/18 History Tamsulosin HCl [Flomax 0.4mg 0.4 mg PO HS 06/02/18 06/02/18 History capsule] buPROPion HCl [Bupropion Xl] 150 mg PO BID 06/02/18 06/02/18 History Allergies Allergy/AdvReac Type Severity Reaction Status Date / Time Sulfa (Sulfonamide Allergy Verified 06/02/18 06:52 Antibiotics) Exam Vital signs and Labs for Last 24 Hours: Temp Pulse Resp BP Pulse Ox 98.3 F 81 18 162/91 H 98 06/03/18 08:00 06/03/18 08:00 06/03/18 08:00 06/03/18 08:00 06/03/18 03:50 Laboratory Results - last 24 hr 06/03/18 05:53: WBC 9.3, RBC 4.47 L, Hgb 14.0 L, Hct 41.1 L, MCV 92.1, MCH 31.4 H, MCHC 34.1, RDW 13.8, Plt Count 187, MPV 7.7, Neut % (Auto) 87.4 H, Lymph % (Auto) 8.5 L, [place] % (Auto) 3.8, Eos % (Auto) 0.1, Baso % (Auto) 0.2, Neut # (Auto) 8.1 H, Lymph # (Auto) 0.8, [place] # (Auto) 0.4, Eos # (Auto) 0.0, Baso # (Auto) 0.0, Total Counted 100, Neutrophils % (Manual) 90 H, Lymphocytes % (Manua l) 7 L, Monocytes % (Manual) 3, Platelet Estimate Normal, Poikilocytosis 1+, Stomatocytes 1+ 06/03/18 05:53: Sodium 136, Potassium 4.5, Chloride 104, Carbon Dioxide 25, Anion Gap 11.5, BUN 14, Creatinine 1.25, Estimated Creat Clear 107, Estimated GFR 61, Est GFR ( Amer) 73, Glucose 148 H, Calcium 8.5, Total Bilirubin 0.7, AST 77 H D, ALT 138 H D, Alkaline Phosphatase 63, Total Protein 6.6, Albumin 3.4, Globulin 3.2, Albumin/Globulin Ratio 1.1 I & O for Last 24 hours: Intake & Output 05/31/18 06/01/18 06/02/18 06/03/18 23:59 23:59 23:59 23:59 Intake Total 700 / 700 340 / 340 Output Total 200 / 200 600 / 600 Balance 500 / 500 -260 / -260 Weight 109.429 kg - *Routine Respiratory Exam Present: CTA bilaterally Internal Medicine - CN: Reslt - Labs CBC & Chem 7: 06/03/18 05:53 06/03/18 05:53 Labs: Short CBC 06/03/18 Range/Units 05:53 WBC 9.3 (4.8-10.8) K/mm3 Hgb 14.0 L (14.1-18.0) g/dL Hct 41.1 L (42.0-52.0) % Plt Count 187 (142-424) K/mm3 BMP 06/03/18 05:53 Sodium 136 Potassium 4.5 Chloride 104 Carbon Dioxide 25 BUN 14 Creatinine 1.25 Glucose 148 H Calcium 8.5 Liver Function 06/03/18 Range/Units 05:53 Total Bilirubin 0.7 (0.2-1.0) mg/dL AST 77 H D (15-37) U/L ALT 138 H D (12-78) U/L Alkaline Phosphatase 63 (46-116) U/L Albumin 3.4 (3.4-5.0) gm/dL Assessment and Plan (1) Cholelithiasis Current visit: Yes Status: Acute Category: Medical Code(s): K80.20 - Calculus of gallbladder without cholecystitis without obstruction (2) Acute cholecystitis Current visit: Yes Status: Acute Category: Medical Code(s): K81.0 - Acute cholecystitis (3) Prostate enlargement Current visit: Yes Status: Acute Category: Medical Code(s): N40.0 - Benign prostatic hyperplasia without lower urinary tract symptoms (4) Prostatic mass Current visit: Yes Status: Acute Category: Medical Code(s): N42.9 - Disorder of prostate, unspecified - Assessment and plan all Dx Assessment and Plan for all problems:: 53-year-old white male with the prostatic abnormality noted on CT scan. He does have a history of some lower urinary tract symptoms which have improved with tamsulosin. 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 I ordered a PSA and will have him come back to see me in 1-2 weeks to discuss the PSA and to perform a prostate examination. CT scan is not a good predictor of prostate cancer.
== END 2018-06-03 14:08 | disposition home or self-care (01) ==
LOC: ER 06:29 → 2ND 06:29
PROVIDERS: ADMIT Surgery; ATTEND Surgery

== ENCOUNTER → 2018-09-29 08:15 | Outpatient (CLI) | payer OTHER, SELFPAY ==
--- NOTE | 2018-09-29 08:21 | CI_ITS ---
Cerebrovascular Exam Indications: 434.91 Cerebral artery occlusion unspecified with cerebral infarction. 433.10 Occlusion/stenosis of carotid artery without cerebral infarction. IMPRESSIONS 1. Study suggests less than 20% stenosis involving the right internal carotid artery. No change from the study of 07-Mar-2016. ICA stent in place. 2. Study suggests 20-49% stenosis involving the left internal carotid artery. No change from the study of 07-Mar-2016. History: Coronary artery disease. Stroke 2015. Left sided weakness. Risk factors: Hypertension. Hyperlipidemia. Labs, prior tests, procedures, and surgery: Right carotid stent. Labs, prior tests, procedures, and surgery: Right carotid stent. Carotid duplex study. Complete study and Doppler flow study including spectral analysis, color and olivo scale imaging. Location: Vascular laboratory. Patient status: Outpatient. Tables: Arterial flow: + +--------+--------+ Location V sys V ed + +--------+--------+ Right CCA - proximal 98.2cm/s 19.6cm/s + +--------+--------+ Right CCA - distal 60.3cm/s 18.9cm/s + +--------+--------+ Right ECA 297cm/s -------- + +--------+--------+ Right ICA - proximal 54.6cm/s 16.5cm/s + +--------+--------+ Right ICA - mid 88.2cm/s 30.3cm/s + +--------+--------+ Right ICA - distal 94.8cm/s 33.6cm/s + +--------+--------+ Right vertebral 59.9cm/s -------- + +--------+--------+ Left CCA - proximal 91.1cm/s 26.7cm/s + +--------+--------+ Left CCA - distal 85.2cm/s 21.6cm/s + +--------+--------+ Left ECA 241cm/s -------- + +--------+--------+ Left ICA - proximal 118cm/s 31.4cm/s + +--------+--------+ Left ICA - mid 108cm/s 36.8cm/s + +--------+--------+ Left ICA - distal 86.9cm/s 28.7cm/s + +--------+--------+ Left vertebral 60.6cm/s -------- + +--------+--------+ Velocity ratios: + + + + + + Right, V sys Right, V ed Left, V sys Left, V ed + + + + + + Max ICA/dist CCA 1.57 1.78 1.38 1.7 + + + + + + (Report amended ) Electronically signed by: Eddie Sparks [id number]
[2018-09-29 10:44] LABS: Alanine Aminotransferase 33 U/L (12-78); Albumin Level 3.7 gm/dL (3.4-5.0); Alkaline Phosphatase 72 U/L (46-116); Aspartate Amino Transferase 16 U/L (15-37); Bilirubin,Direct 0.2 mg/dL (0.0-0.2); Bilirubin,Indirect 0.6 mg/dL (0.0-0.9); Bilirubin,Total 0.8 mg/dL (0.2-1.0); Chol/HDL Ratio 5.1 (1-3.5); Cholesterol 139 mg/dL (140-200); HDL Cholesterol 27 mg/dL (27-67); LDL Cholesterol 70 mg/dL (0-130); Total Protein,Serum 6.6 gm/dL (6.4-8.2); Triglycerides 209 mg/dL (30-200); VLDL Cholesterol 42 mg/dL (0-40)
== END ==
PROVIDERS: Urology; PCP Nurse Practitioner Family; Visit Provider Internal Medicine
DX: I65.23 Occlusion and stenosis of bilateral carotid arteries (principal); Z86.73 Personal history of transient ischemic attack (TIA), and cerebral infarction without residual deficits; I11.9 Hypertensive heart disease without heart failure; I25.10 Atherosclerotic heart disease of native coronary artery without angina pectoris; I70.1 Atherosclerosis of renal artery; Z98.890 Other specified postprocedural states
CPT/HCPCS: 36415; 80061; 80076; 93880

== ENCOUNTER → 2018-12-01 13:57 | Outpatient (POV) | payer OTHER, SELFPAY | PROVIDERS: PCP Nurse Practitioner Family | DX: Z00.00 Encounter for general adult medical examination without abnormal findings (principal) ==

== ENCOUNTER 2019-01-28 20:03 | Emergency (ER) | payer OTHER, SELFPAY ==
[2019-01-28 20:04] VITALS: BP 150/87; PULSE 71; RESP 20; TEMP 36.9; O2SAT 99; BMI 41.3
--- NOTE | 2019-01-28 20:39 | HMH.EDUTC ---
[facility] [place] Clinical Impression: Abscess of chest wall Disposition: Home, Self-Care Condition on Discharge: Good Instructions: DI for Skin Abscess Additional Instructions: Return to clinic/ER if redness continues to spread outside of outlined area. Prescriptions: Clindamycin HCl [Clindamycin HCl 300mg Cap] 300 mg PO Q8 10 Days #30 cap Referrals: Rolanda Acosta APRN [Primary Care Provider] - Time of Disposition: 20:42 Medical Decision Making - Abdirahman Inquiry Pt receiving controlled substance: No Vital Signs: 01/28/19 20:04 Temperature 98.4 F Temperature Source Oral Pulse Rate [Left Radial] 71 Respiratory Rate 20 Blood Pressure [Right Arm] 150/87 H Blood Pressure Mean [Right Arm] 108 Blood Pressure Source [Right Arm] Automatic Cuff Blood Pressure Position [Right Arm] Sitting 02 Sat by Pulse Oximetry 99 Oxygen Delivery Method Room Air [facility] [place] - General Stated complaint: spot under R arm Time Seen by Provider: 01/28/19 20:31 Mode of Arrival: Ambulatory Source of Information: Patient Limitations: No Limitations Description of Symptoms (Recalled from Triage Doc. by RN): SPIDER BITE HEENT Symptoms (Recalled from RN notes): No Resp Symptoms (Recalled from RN notes): No Skin Symptoms (Recalled from RN notes): Yes MS Symptoms (Recalled from RN notes): No Functional Status (Recalled from RN notes): WNL - History of Present Illness Provider Complaint: Red swollen area under right arm X 3 days. 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 Now has redness spreading around it and small black center. Some drainage. Has a headache. No fever or vomiting. Onset (ago): day(s) (3) Location: chest Relieving factors: none Exacerbating factors: none Associated symptoms: headaches Treatments prior to arrival: none - Related Data Home Medications Medication Instructions Recorded Confirmed Allopurinol [Allopurinol 300mg 300 mg PO DAILY 06/02/18 10/19/18 tablet] Amlodipine Besylate [Amlodipine 10 mg PO DAILY 06/02/18 10/19/18 10mg Tab] Benazepril HCl 40 mg PO DAILY 06/02/18 10/19/18 Diclofenac Sodium [Diclofenac 75mg 75 mg PO BID 06/02/18 10/19/18 Tab] Tamsulosin HCl [Flomax 0.4mg 0.4 mg PO HS 06/02/18 10/19/18 capsule] buPROPion HCl [Bupropion Xl] 150 mg PO BID 06/02/18 10/19/18 sildenafil (antihypertensive) 20 20 mg PO NEEDED PRN 06/09/18 10/19/18 mg tablet oxybutynin chloride 5 mg tablet 5 mg PO DAILY 30 Days #30 tab 07/13/18 10/19/18 Previous Rx's Medication Instructions Recorded Albuterol Sulfate [Albuterol HFA 1 - 2 puffs IH Q4-6H PRN #1 inh 06/08/18 Inhaler] aspirin 81 mg tablet,delayed 81 mg PO DAILY #30 tab 06/15/18 release atorvastatin 40 mg tablet 40 mg PO DAILY #30 tab 10/11/18 clopidogrel 75 mg tablet 75 mg PO QDAY #30 tab 10/19/18 carvedilol 6.25 mg tablet 6.25 mg PO BID #180 tab 01/26/19 Clindamycin HCl [Clindamycin HCl 300 mg PO Q8 10 Days #30 cap 01/28/19 300mg Cap] Allergies Allergy/AdvReac Type Severity Reaction Status Date / Time amoxicillin Allergy Verified 01/28/19 20:37 cephalexin [From Keflex] Allergy Verified 01/28/19 20:37 Penicillins Allergy Verified 01/28/19 20:37 Sulfa (Sulfonamide Allergy Verified 10/19/18 12:23 Antibiotics) - Worker's Comp Is this a Worker's Comp case?: No [facility] History - Hepatitis A Screen Drug use history?: No High risk sexual behaviors?: No History of sexually transmitted infection?: No Currently employed?: No Childcare worker?: No Do you have indoor plumbing?: Yes Do you have electricity?: Yes Attestation statement:: This patient has been screened for Hepatitis A risk factors. I have reviewed the patient's past medical history: Yes Medical History: Reports:: Cerebrovascular Accident, Hypertension, Transient Ischemic Attacks (TIA) Denies:: Cancer, Diabetes Mellitus Type 1, Diabetes Mellitus Type 2, Internal Pac
--- NOTE | 2019-01-28 20:42 | ED_ITS ---
[facility] [place] Impression: Abscess of chest wall Disposition: Home, Self-Care Condition on Discharge: Good Instructions: DI for Skin Abscess Additional Instructions: Return to clinic/ER if redness continues to spread outside of outlined area. Prescriptions: Clindamycin HCl [Clindamycin HCl 300mg Cap] 300 mg PO Q8 10 Days #30 cap Referrals: Rolanda Acosta APRN [Primary Care Provider] - Time of Disposition: 20:42 Medical Decision Making - Abdirahman Inquiry Pt receiving controlled substance: No Vital Signs: 01/28/19 20:04 Temperature 98.4 F Temperature Source Oral Pulse Rate [Left Radial] 71 Respiratory Rate 20 Blood Pressure [Right Arm] 150/87 H Blood Pressure Mean [Right Arm] 108 Blood Pressure Source [Right Arm] Automatic Cuff Blood Pressure Position [Right Arm] Sitting 02 Sat by Pulse Oximetry 99 Oxygen Delivery Method Room Air [facility] [place] - General Stated complaint: spot under R arm Time Seen by Provider: 01/28/19 20:31 Mode of Arrival: Ambulatory Source of Information: Patient Limitations: No Limitations Description of Symptoms (Recalled from Triage Doc. by RN): SPIDER BITE HEENT Symptoms (Recalled from RN notes): No Resp Symptoms (Recalled from RN notes): No Skin Symptoms (Recalled from RN notes): Yes MS Symptoms (Recalled from RN notes): No Functional Status (Recalled from RN notes): WNL - History of Present Illness Provider Complaint: Red swollen area under right arm X 3 days. 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 Now has redness spreading around it and small black center. Some drainage. Has a headache. No fever or vomiting. Onset (ago): day(s) (3) Location: chest Relieving factors: none Exacerbating factors: none Associated symptoms: headaches Treatments prior to arrival: none - Related Data Home Medications Medication Instructions Recorded Confirmed Allopurinol [Allopurinol 300mg 300 mg PO DAILY 06/02/18 10/19/18 tablet] Amlodipine Besylate [Amlodipine 10 mg PO DAILY 06/02/18 10/19/18 10mg Tab] Benazepril HCl 40 mg PO DAILY 06/02/18 10/19/18 Diclofenac Sodium [Diclofenac 75mg 75 mg PO BID 06/02/18 10/19/18 Tab] Tamsulosin HCl [Flomax 0.4mg 0.4 mg PO HS 06/02/18 10/19/18 capsule] buPROPion HCl [Bupropion Xl] 150 mg PO BID 06/02/18 10/19/18 sildenafil (antihypertensive) 20 20 mg PO NEEDED PRN 06/09/18 10/19/18 mg tablet oxybutynin chloride 5 mg tablet 5 mg PO DAILY 30 Days #30 tab 07/13/18 10/19/18 Previous Rx's Medication Instructions Recorded Albuterol Sulfate [Albuterol HFA 1 - 2 puffs IH Q4-6H PRN #1 inh 06/08/18 Inhaler] aspirin 81 mg tablet,delayed 81 mg PO DAILY #30 tab 06/15/18 release atorvastatin 40 mg tablet 40 mg PO DAILY #30 tab 10/11/18 clopidogrel 75 mg tablet 75 mg PO QDAY #30 tab 10/19/18 carvedilol 6.25 mg tablet 6.25 mg PO BID #180 tab 01/26/19 Clindamycin HCl [Clindamycin HCl 300 mg PO Q8 10 Days #30 cap 01/28/19 300mg Cap] Allergies Allergy/AdvReac Type Severity Reaction Status Date / Time amoxicillin Allergy Verified 01/28
[2019-01-28 21:02] VITALS: BP 150/87; PULSE 71; RESP 20; TEMP 36.9; O2SAT 99
== END 2019-01-28 21:03 | disposition home or self-care (01) ==
PROVIDERS: Emergency Provider Physician Assistant; PCP Nurse Practitioner Family
DX: L02.213 Cutaneous abscess of chest wall (principal); I10 Essential (primary) hypertension; Z88.0 Allergy status to penicillin; Z88.2 Allergy status to sulfonamides
CPT/HCPCS: 99201

== ENCOUNTER → 2020-02-24 09:38 | Outpatient (CLI) | payer BC, MEDICAID, SELFPAY ==
--- NOTE | 2020-02-24 09:42 | XR_ITS ---
PROCEDURE: XR KNEE LT 4V with weight-bearing views CLINICAL INDICATION: left knee pain COMPARISON: No exams were available for comparison FINDINGS: No fracture or dislocation. There is mild joint space narrowing both medially and laterally. There is moderate spurring of the tibial spines. There is mild narrowing of the patellofemoral space. There is no effusion and no definite loose bodies. Other findings:None. IMPRESSION: Mild degenerate changes as described above Dictated by: Dr. Levi Verma MD 02/24/2020 10:[address] Levi Verma MD in [place] 02/24/2020 10:40
--- NOTE | 2020-02-24 09:42 | XR_ITS ---
PROCEDURE: XR HIP LT 2-3V W/PELVIS CLINICAL INDICATION: Lt hip pain COMPARISON: No exams were available for comparison FINDINGS: No fracture or dislocation is evident. There is mild asymmetrical joint space narrowing of both hips. There is minimal spurring of the acetabulum bilaterally but slightly more prominent left hip than the right. The SI joints and symphysis pubis appear normal. IMPRESSION: Mild osteoarthritic changes of both hips. Dictated by: Dr. Levi Verma MD 02/24/2020 10:[address] Levi Verma MD in [place] 02/24/2020 10:38
--- NOTE | 2020-02-24 11:48 | XR_ITS ---
PROCEDURE: XR LUMBAR SPINE 6V W BENDING CLINICAL INDICATION: back/hip pain COMPARISON: No exams were available for comparison FINDINGS: There is normal curvature and alignment. All lumbar vertebrae appear intact. There is minor disc space narrowing L4-5. There is no pars defect. There are mild hypertrophic facet changes at the L4-5 and L5-S1 levels. The SI joints appear normal. There is an approximate 1 cm calculus overlying the lower pole left kidney. IMPRESSION: Very minor degenerate disc disease L4-5 along with hypertrophic facet changes L4-5 and L5-S1 Dictated by: Dr. Levi Verma MD 02/24/2020 12:[address] Levi Verma MD in [place] 02/24/2020 12:45
== END ==
PROVIDERS: PCP Nurse Practitioner; Visit Provider Orthopaedic Surgery
DX: M25.552 Pain in left hip (principal); M25.562 Pain in left knee; M54.9 Dorsalgia, unspecified
CPT/HCPCS: 72114; 73502; 73564

== ENCOUNTER → 2020-03-02 09:02 | Outpatient (CLI) | payer BC, MEDICAID, SELFPAY ==
--- NOTE | 2020-03-02 09:03 | CT_ITS ---
PROCEDURE: CT ABDOMEN PELVIS W CON CLINICAL INDICATION: abdominal hernia Left lower quadrant abdominal pain, abdominal hernia COMPARISON: CT ABDOMEN PELVIS W CON from 10/04/2019 TECHNIQUE: IV Contrast: 75ML OPTIRAY 350 Oral Contrast None Axial images obtained with sagittal and coronal reformats. All CT scans at the facility use one or more dose reduction, viz: automated exposure control, ma/kV adjustment per patient size (including targeted exams where dose is matched to indication, i.e. head), or iterative reconstruction technique. FINDINGS: LOWER THORAX: In the most superior image of the lung bases there is a 4 mm noncalcified nodule in the left upper lobe posteriorly and a 5 mm noncalcified nodule in the left lower lobe posteriorly. The ABDOMEN & PELVIS: Prior cholecystectomy. The liver, adrenal glands, and pancreas have an unremarkable appearance. There is splenomegaly at 15 cm. There are bilateral renal calculi measuring up to 3 mm in the mid polar region on the right. A cluster of stones is present in the lower pole on the left and measures 10 mm in combination. No ureteral calculi. No hydronephrosis. There is a left ureteral stent present. No intestinal obstruction or free air. No evidence of appendicitis. There is colonic diverticulosis. There is some mild thickening of the mid aspect of the sigmoid colon. This is nonspecific and could be due to nondistention or mild colitis. No evidence of diverticulitis. The prostate is enlarged at 5 cm. No acute bony findings. IMPRESSION: 1. Colonic diverticulosis. No evidence of diverticulitis. 2. Mild thickening of a short segment of the sigmoid colon which could be due to nondistention or mild colitis. 3. Enlarged prostate. 4. Pulmonary nodules present in the left lower lobe and left upper lobe incompletely imaged. Consider chest CT for further evaluation. 5. Mild splenomegaly 6. Nonobstructing bilateral nephrolithiasis Dictated by: Eddie Sparks MD 03/03/2020 10:24 Electronically signed by Eddie Sparks MD in [place] 03/03/2020 10:24
[2020-03-02 10:32] LABS: Blood Urea Nitrogen 16 mg/dl (9-20); Estimated Glomerular Filt Rate 63 ml/min (>60); GFR (African American) 76 ML/MIN (>60)
== END ==
PROVIDERS: PCP Physician Assistant; Visit Provider Surgery
DX: R10.9 Unspecified abdominal pain (principal)
CPT/HCPCS: 36415; 74177; 82565; 84520; Q9967

== ENCOUNTER → 2020-03-13 06:44 | Outpatient (CLI) | payer BC, MEDICAID, SELFPAY ==
--- NOTE | 2020-03-13 06:49 | CA_ITS ---
APPROVED REPORT EXAM: Comprehensive 2D, Doppler, and color-flow Echocardiogram Noise Abatement Engineer: Stacey Hooks RDCS Ht: 5 ft 10 in Wt: 229lbs BSA: 2.21 BP: 126/57 mmHg Indications: PRE-OP EVAL,CVA, COPD,HTN,CAD 2D Dimensions LVOT 2.03 cm (M/F) 1.5-2.5 M-Mode Dimensions RVDd 2.32 cm (0.9-2.6) LVDd 5.43 cm (3.5-5.7) LVDs 3.72 cm (3.5-5.7) IVSd 1.06 cm (0.6-1.1) PWd 0.84 cm (0.6-1.1) EF (Teich) 58.80% FS 31.50% EDV (Teich) 143.10 mL ESV (Teich) 58.90 mL LV Diastology E/A Ratio 1.28 Mitral Valve MV A Velocity 79.00 (40-130 cm/s) Left Ventricle Left atrium is mildly enlarged, left ventricle is normal size, mild concentric left ventricular hypertrophy, visually estimated ejection fraction 55% with no regional wall motion abnormality, grade 1 diastolic dysfunction seen without tissue Doppler evidence of raise left atrial pressure. Right Ventricle Right atrium and left ventricle are mildly enlarged with normal contractility. Aortic Valve Aortic valve is minimally thickened and fibrosed, there is no aortic stenosis or aortic insufficiency. Mitral Valve Mitral valve is grossly normal, there is mild mitral regurgitation. Tricuspid Valve Tricuspid valve is grossly normal, there is mild tricuspid regurgitation. Pulmonic Valve Pulmonic valve is poorly visualized. Great Vessels Aortic root is normal size. Pericardium No significant pericardial effusion noted. Conclusion 1. Mildly enlarged left atrium, normal left ventricular size, mild concentric left ventricular hypertrophy, visually estimated ejection fraction 55% with no regional wall motion abnormality, grade 1 diastolic dysfunction seen without tissue Doppler evidence of raise left atrial pressure. 2. Mild mitral and tricuspid regurgitation. 3. No significant pericardial effusion noted. Electronically signed by : Satya Mcclellan, 03/13/2020 19:54:20
--- NOTE | 2020-03-13 06:54 | NM_ITS ---
APPROVED REPORT Exam: Nuclear Stress Test Indication: short of breath..fatigue Patient Location: Outpatient Stress Tech: Liliane Isaac OR Tech:Bess Mariscal FRANCISCA RT(R)(N) Ht: 5 ft 10 in Wt: 229 lbs HR: 51 bpm BP: 137/62 mmHg BSA: 2.21 m2 BMI: 32.8 History: short of breath..fatigue Procedure: Patient received a 0.4 mg of intravenous Lexiscan, resting heart rate 51 bpm, resting blood pressure 137/62 mmHg, with Lexiscan maximum heart rate achived was 72 bpm which is Less than 85 % of the maximum predicted heart rate and blood pressure was 136/57 mmHg. Electrocardiogram Resting electrocardiogram showed sinus bradycardia, and there is less than 1.[address] segment depression noted from the baseline EKG. The EKG portion of the Lexiscan Myoview is nondiagnostic. Cardiac Stress and Resting SPECT Images: Cardiac Stress and Resting SPECT images were obtained using technetium 99m Myoview 30.7 mCi stress and 10.99 mCi at rest. Gated SPECT for the analysis of segmental wall motion and calculation of the ejection fraction also done. Cardiac stress and resting SPECT images show uniform myocardial activity without segmental perfusion abnormality, computer derived ejection fraction is 63% with no regional wall motion abnormality, right ventricle is normal size and contractility. Conclusion: 1. The EKG portion of the Lexiscan Myoview is nondiagnostic. 2. No scintigraphic evidence of reversible ischemia seen, computer derived ejection fraction is 63% with no regional wall motion abnormality, right ventricle is normal size and contractility. 3. Normal Lexiscan Myoview study. Electronically signed by : Satya Mcclellan, 03/13/2020 20:42:24
--- NOTE | 2020-03-13 06:54 | CA_ITS ---
APPROVED REPORT Exam: Pharmacologic Technologist: Liliane Isaac Ht: 5 ft 10 in Wt: 229 lbs BSA: 2.21 m2 HR: 51 bpm BP: 137/62 mmHg Indications: PreOp, CAD Medical History Medications: Amlodipine,,,,, Allopurinol,,,,, Carvedilol,,,,, Benazepril,,,,, TAMSULOSIN,,,,, CloPIdogrel,,,,, Ibuprofen,,,,, OxYbutynin,,,,, ONdansetron,,,,, SoDIUM potassium mag sulf,,,,, Stress Test Details Test: LEXISCAN HR Resting HR: 51 bpm Max Heart Rate (APMHR): 166 bpm Max HR Achieved: 89 bpm Target HR (85% APMHR): 141 bpm % of APMHR: 53 Recovery HR: 57 bpm BP Resting BP: 137.0/62.0 mmHg Max BP: 137.0/62.0 mmHg Recovery BP: 116.0/59.0 mmHg ECG Clinical Exercise duration: 04:05 min Highest Stage Achieved: Stress ECG Conclusion Resting ECG: Marked sinus bradycardia, Right axis deviation, LVH with strain pattern. Symptoms: Shortness of air, malaise, twinge of chest pain. Arrhythmias/Ectopy: None ST-T Changes: Mild exaggeration of baseline ST-T abnormalities. Conclusion: Unremarkable Lexiscan stress. Myoview images reported separately. Test Summary RECOVERY 04:00 . . 57 . 115/ 44 . . REST 03:06 . . 51 . 137/ 62 . . Stage 1 . . . . . . . Myoview Injected Stage 1 01:00 . . 63 . . . . Stage 2 01:00 . . 87 . 121/ 52 . . Stage 3 01:00 . . 61 . . . . Stage 4 01:00 . . 65 . 136/ 57 . . Stage 4 01:05 . . 69 . 127/ 62 . Stop exercise at 04:05 RECOVERY 01:00 . . 60 . 122/ 57 . . RECOVERY 02:00 . . 62 . 122/ 57 . . RECOVERY 03:00 . . 59 . 108/ 53 . . RECOVERY 04:00 . . 57 . 115/ 44 . . RECOVERY 05:00 . . 60 . 115/ 44 . . RECOVERY 06:00 . . 57 . 115/ 44 . . RECOVERY 07:00 . . 60 . 113/ 47 . . RECOVERY 08:00 . . 57 . 113/ 47 . . RECOVERY 08:54 . . 60 . 116/ 59 . . Electronically signed by : Satya Mcclellan, 03/13/2020 20:40:43
--- NOTE | 2020-03-13 09:32 | HMH.ITSHM ---
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 [] asa allopurinol cardivedolol amlodipine tamulosin benazopril cloridogrel
[2020-03-13 12:49] LABS: Coronavirus 19 IgG Antibody Negative (Negative); Coronavirus 19 IgM Antibody Negative (Negative)
== END ==
PROVIDERS: Surgery; PCP Nurse Practitioner; Visit Provider Urology
DX: Z01.810 Encounter for preprocedural cardiovascular examination (principal); I25.10 Atherosclerotic heart disease of native coronary artery without angina pectoris; R94.31 Abnormal electrocardiogram [ECG] [EKG]; I10 Essential (primary) hypertension; I70.1 Atherosclerosis of renal artery; J45.909 Unspecified asthma, uncomplicated; Z86.73 Personal history of transient ischemic attack (TIA), and cerebral infarction without residual deficits
CPT/HCPCS: 36415; 78452; 86328; 93017; 93306; A9502; J2785

== ENCOUNTER → 2020-03-13 09:56 | Outpatient (CLI) | payer BC, MEDICAID, SELFPAY | PROVIDERS: Visit Provider Surgery | DX: Z03.818 Encounter for observation for suspected exposure to other biological agents ruled out (principal) | CPT/HCPCS: 36415; 86328 ==

== ENCOUNTER 2020-03-15 06:20 | Day surgery (SDC) | payer BC, MEDICAID, SELFPAY ==
[2020-03-14 08:43] VITALS: BMI 33.0
[2020-03-15] VITALS (7 sets, daily range): BP systolic 81–136; BP diastolic 43–64; PULSE 45–58; RESP 18–20; TEMP 36.3–36.6; O2SAT 93–99
--- NOTE | 2020-03-15 07:08 | HMH.ANESCL ---
[facility] Anesthesia Checklist - Patient Identification Patient Identification: Arm Band, Verbal (Name & ) - Structural Data Admitted From: Home Planned Operative Procedure/s: EGD, Colonscopy, Prostate Bx Consent for Planned Operative Procedure(s) Verified: Yes Verified Documents: Surgical Consent, History and Physical, Cardiac Clearance (Low cardiac risk) - NPO Status Verified Time NPO: 00:00 - Chart Verification Results Verified: UA - Additional verifications Anesthesia Reactions: No Hx Blood Transfusions: No Blood Transfusion Reaction: No - Airway Assessment C-Spine Mobility Assessed: Yes TMJ Mobility Assessed: Yes Dentition: Good Dentition (Chipped front tooth) - Neurological Assessment Level of Consciousness: Awake, Alert, Appropriate, Follows Commands Hx Seizures: No Numbness or tingling in extremities: No - Anesthesia Plan Anesthesia Risk discussed: Yes Anesthesia Plan: Verified ASA Class: III Anesthesia Type: MAC [facility] History I have reviewed the patient's past medical history: Yes Medical History: Reports:: Cerebrovascular Accident, Hypertension, Kidney Stones, Renal Disease, Transient Ischemic Attacks (TIA) Denies:: Cancer, Diabetes Mellitus Type 1, Diabetes Mellitus Type 2, Internal Pacemaker, MRSA, Seizures *Have you ever received a pneumonia vaccine?: No *Have you received a flu vaccine this season?: No Other Medical History: Denies: Blood Transfusion Reaction Comment:: obesity, gout Anesthesia experience/problems:: No anesthesia complications Laterality Cases: Right: Arthroscopy Shoulder, Bilateral: Tonsillectomy Other Surgeries: Yes: Cardiac Catheterization (Renal artery stent), Cardiac Surgery, Cholecystectomy, Hernia Repair. No: Pacemaker Amputation: Yes Fractures: No - *Social History Last grade of school completed: High school graduate Smoking Status: Never smoker Alcohol Intake: never Substance Use Type: denies use *Occupational Status:: employed Housing: house Household Members: none *Travel in the last 8 weeks: None Family Hx:: No significant family history
--- NOTE | 2020-03-15 08:13 | HMH.SCOPE ---
- Procedure: Date: 03/15/20 Procedure Performed:: Esophagogastroduodenoscopy with biopsy Colonoscopy with polypectomy Indications:: Upper abdominal pain Screening colonoscopy Performing Provider:: Felipe Clayton MD Referring Provider:: . Sedation:: Monitored anesthesia care Procedure:: After informed consent was obtained the patient was taken to the endoscopy suite. Sedation ensued after the patient was transferred to the left lateral decubitus position. Pulse, blood pressure, and oxygen saturation were monitored throughout the procedure. The endoscope was advanced beyond the duodenal bulb. Retroflexion within the gastric lumen was accomplished. The gastroscope was carefully removed. Digital rectal exam revealed no significant abnormality. The colonoscope was placed in position. The entire colon was evaluated. The colonoscope was carefully removed and the patient was transferred to recovery in stable condition. Please see findings and specimens below for detail. Findings:: Gastroesophageal junction at 40 cm Patchy inflammation at gastroesophageal junction Patchy gastritis Small island at 18 cm Bowel prep moderate Significant spasticity and lack of relaxation Pandiverticulosis Sessile polyp at 45 cm Specimens:: Antral biopsy Gastroesophageal junction biopsy Sessile colon polyp at 45 cm (snare) Recommendations:: Follow-up pathology Proton pump inhibition Timing of repeat colonoscopy is pending pathology but will likely be between 2-3 years secondary to moderate bowel preparation, spasticity, and lack of relaxation. Note: The patient recently underwent a CT scan of the abdomen/pelvis. Results will be followed up with the patient upon return to clinic. Complications:: No immediate Estimated blood obtained (mL): 1
--- NOTE | 2020-03-15 08:30 | SUR.OPER ---
[id number] DR ISAACS PRESENT 0810 PROCEDURE END TIME FOR DR HINOJOSA EGD/COLONOSCOPY 0811 TIME OUT FOR PROSTATE BX WITH DR ISAACS 0814 PROCEDURE START TIME FOR PROSTATE BX 0825 PROCEDURE END TIME FOR DR ISAACS'S PROSTATE BX
--- NOTE | 2020-03-15 09:42 | P.OP_ITS ---
Date of procedure: 03/15/20 Pre-op Diagnosis:: Elevated PSA Post-op Diagnosis:: Elevated PSA/BPH Procedure performed:: Prostate biopsy with transrectal ultrasound guidance Surgeon:: Mando Nino MD [employer] MANAGER:: Tommie Maharaj Anesthesia: MAC Estimated blood loss (mL): 0 Clinical Note:: 55-year-old white male with mildly elevated PSA presents for prostate biopsy. The procedure is being done after his colonoscopy under general anesthesia with Dr. Bernabe. Operative findings:: Prostate was measured at 70.7 cm?. There is no evidence of hypoechoic or hyperechoic prostatic lesions. Operative note:: Patient was taken to the operating room after informed consent was obtained. Colon prep was performed the day prior to his procedure and patient was started on Cipro the day prior to procedure. Dr. Bernabe performed colonoscopy in the left lateral decubitus position and after his procedure patient was kept in the same position and the transrectal ultrasound probe was placed into the rectum without difficulty. The prostate was visualized easily and was measured at 70.7 cm?. There was no evidence of hypoechoic or hyperechoic lesions. There is no evidence of prostatic calcifications. Local anesthetic placed into each neurovascular bundle and 12 biopsies were then taken in a systematic fashion thr oughout the prostate. Specimens were sent off to pathology. There was no bleeding noted. Patient tolerated well and there were no palpitations. He was discharged home with routine instructions and is to call me next week for the biopsy results. Condition: stable Disposition: same day Specimens:: Prostate tissue Complications:: None
== END 2020-03-15 09:29 | disposition home or self-care (01) ==
LOC: OUTP 06:21
PROVIDERS: PCP Nurse Practitioner; Visit Provider Surgery
PROC: 0DJ08ZZ Inspection of Upper Intestinal Tract, Via Natural or Artificial Opening Endoscopic (ICD-10-PCS; CPT 43235; principal; 2020-03-15 07:30)
DX: Z12.11 Encounter for screening for malignant neoplasm of colon (principal); N40.0 Benign prostatic hyperplasia without lower urinary tract symptoms; R97.20 Elevated prostate specific antigen [PSA]; R10.10 Upper abdominal pain, unspecified; K29.60 Other gastritis without bleeding; I63.9 Cerebral infarction, unspecified; I10 Essential (primary) hypertension; N28.9 Disorder of kidney and ureter, unspecified; G45.9 Transient cerebral ischemic attack, unspecified; Z87.442 Personal history of urinary calculi; Z90.89 Acquired absence of other organs; Z95.818 Presence of other cardiac implants and grafts
CPT/HCPCS: 55700; 43239; 45385; J2704

== ENCOUNTER → 2020-03-26 08:13 | Outpatient (POV) | payer BC, MEDICAID, SELFPAY ==
[2020-03-26 09:05] VITALS: BP 119/82; PULSE 60; RESP 18; TEMP 36.8; O2SAT 100; BMI 32.5
--- NOTE | 2020-03-26 10:03 | HMH.PMCON ---
Assessment and Plan (1) Degenerative joint disease (DJD) of lumbar spine Current visit: Yes Status: Chronic Qualifiers: Spinal osteoarthritis complication: with radiculopathy Qualified Code(s): M47.26 - Other spondylosis with radiculopathy, lumbar region Category: Medical Code(s): M47.816 - Spondylosis without myelopathy or radiculopathy, lumbar region (2) Lumbar radiculopathy Current visit: Yes Status: Chronic Category: Medical Code(s): M54.16 - Radiculopathy, lumbar region - Assessment and plan all Dx Assessment and Plan for all problems:: Given the length of time that the patient has had the pain, along with failure of physical therapy and anti-inflammatory therapy I do believe an MRI would be justified to further clarify any lumbar spine issues. We will order an MRI for him I will reassess him after this and discuss the results with him. At that time we will make a plan of care. Dr. Oleary has reviewed this note and agrees with this plan of care. This note was dictated using voice recognition software and may contain errors or omissions HPI - Data of Consult Consult date: 03/26/20 Requesting Physician: Kirti Ribeiro APRN Primary Care Provider: Shakira Todd - Consult Narrative Reason for consult: Back pain History of present illness: Mr. Tyson is a 55 year old male who presents today for consultation in regards to his low back pain. Patient states he has had his pain for over 10 years. 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 Patient was sent to us by Dr. Peralta who is treating him for bursitis and hip pain. She is sent him to physical therapy he is completing this. Patient has had injections in his hip with no success. He rates his pain today an 8 out of 10. It is mainly focal pain in his low back however it does radiate at times down into his left leg. Patient has had a x-ray showing degenerative changes in his lumbar spine. Patient has not had an MRI. Patient's tried and failed over a year of anti-inflammatory therapy. Patient states that nothing really decreases his pain. CC: Kirti Ribeiro APRN [facility] History I have reviewed the patient's past medical history: Yes Medical History: Reports:: Coronary Artery Disease, Cerebrovascular Accident, Hyperlipidemia, Hypertension, Kidney Stones, Renal Disease, Transient Ischemic Attacks (TIA) Denies:: Cancer, Diabetes Mellitus Type 1, Diabetes Mellitus Type 2, Internal Pacemaker, MRSA, Seizures *Have you ever received a pneumonia vaccine?: Yes *Have you received a flu vaccine this season?: Yes Other Medical History: Reports: Arthritis. Denies: Blood Transfusion Reaction Laterality Cases: Right: Arthroscopy Shoulder, Bilateral: Tonsillectomy Other Surgeries: Yes: No Previous Surgery, Cardiac Catheterization (Renal artery stent), Cardiac Surgery, Cholecystectomy, Coronary Stent, Hernia Repair, Other (neck surgery, L kidney). No: Pacemaker Amputation: Yes (R middle toe) Fractures: No - *Social History Smoking Status: Never smoker Tobacco Type: cigarettes Alcohol Intake: never Substance Use Type: denies use *Occupational Status:: other Housing: house Household Members: other *Travel in the last 8 weeks: None Family Hx:: Unable to obtain Review of Systems - Review of Systems ROS General: no recent weight change, no fever, no sleep disturbances Respiratory: no cough, no shortness of air, no recurring pulmonary infections Cardiovascular/Peripheral Vascular: No chest pain, No palpitations, no edema, no shortness of breath. Gastrointestinal: no new onset incontinence, normal bowel movements reported Genitourinary: no new onset incontinence Musculoskeletal: Back pain, leg pain hip pain Psychiatric: normal mood/ affect, [denies depression], [denies anxiety] Neurological: [denies new onset weakness in extremities], [denies new onset balance issues] [facility]
== END ==
PROVIDERS: PCP Nurse Practitioner Family; Visit Provider Clinical Nurse Specialist Family Health
DX: M51.16 Intervertebral disc disorders with radiculopathy, lumbar region (principal); M47.26 Other spondylosis with radiculopathy, lumbar region
CPT/HCPCS: 99202

== ENCOUNTER 2020-03-27 07:00 | Outpatient (RCR) | payer BC, MEDICAID, SELFPAY ==
--- NOTE | 2020-03-07 09:26 | HMH.PTOPEV ---
PT Outpatient Evaluation Rehab PT Outpatient Evaluation Start: 03/07/20 08:24 Freq: Status: Active Protocol: Document 03/07/20 08:24 [id number] (Rec: 03/07/20 09:26 PDESEROUX [id number]) Electronically Signed By Vivek Lantigua, GRETCHEN 03/07/20 08:24 Outpatient Therapy Subjective History Subjective History Pt. is a 55 year old male who presents to outpatient PT clinic w/ complaints of chronic and constant L-sided LB/hip and LLE P! of insidious onset for about one year, but has gotten worse. Pt. describes current symptoms into the LLE to the toes as numbness and tingling, w/ a sharp P! in the LLB and posterior/ posterolateral hip. Recent diagnostic imaging positive for minor lumbar DDD L4/L5 and hypertrophic facet changes at L4/L5 and L5/S1, and mild OA changes in the LLE acetabulofemoral and tibiofemoral jts. Pt. reports some symptom relief post Cortisone injection. Pt. RTMD end of 2019. Pt. reports having a CT w/ contrast last thursday(03/02/20) that has my calf cramping( LLE). Pt. reports having a Colonoscopy and biopsy of the prostate next (). 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 Current medications include Aleve, Naproxen, and Tylenol. PMH includes a CVA resulting in L- sided weakness, C6/C7 fusion, LUE shldr. osteophytectomy, Nephrolithotomy, RLE ft. 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 Chief Complaint Pain,Spasms,Paresthesia Symptom Type Ache,Sharp,Numbness,Tingling Symptoms Relieved By Heat,Ice,Prescription Meds Symptoms Aggravated By Sitting,
== END 2020-04-10 15:00 | disposition home or self-care (01) ==
LOC: PT.CARL 07:00
PROVIDERS: PCP Physician Assistant; Visit Provider Orthopaedic Surgery
DX: M70.62 Trochanteric bursitis, left hip (principal)
CPT/HCPCS: 97014; 97033; 97035; 97110; 97140; 97163; G0283

== ENCOUNTER → 2020-03-29 09:28 | Outpatient (CLI) | payer BC, MEDICAID, SELFPAY ==
--- NOTE | 2020-03-29 09:28 | FL_ITS ---
PROCEDURE: FL UPPER GI SMALL BOWEL CLINICAL INDICATION: abdominal pain COMPARISON: CT CT ABDOMEN PELVIS W CON from 03/02/2020 TECHNIQUE: FLUOROSCOPY TIME : 2 minutes and 49 seconds FINDINGS: There is a small sliding hiatal hernia with a mild amount of GE reflux noted. There was some esophageal tertiary contractions. No ulcer or mass evident of the esophagus stomach or duodenum. The small bowel has an unremarkable appearance. No small bowel dilatation, mucosal abnormalities, or other significant anomalies apparent. IMPRESSION: Small sliding hiatal hernia with mild GE reflux and mild esophageal dysmotility Otherwise negative upper GI and small-bowel follow-through Dictated b Eddie Sparks MD 03/29/2020 14:55 Eddie Sparks MD in [place] 03/29/2020 14:55
== END ==
PROVIDERS: PCP Nurse Practitioner Family; Visit Provider Surgery
DX: R10.9 Unspecified abdominal pain (principal)
CPT/HCPCS: 74246; 74248

== ENCOUNTER → 2020-04-03 08:44 | Outpatient (CLI) | payer BC, MEDICAID, SELFPAY ==
--- NOTE | 2020-04-03 08:47 | MR_ITS ---
PROCEDURE: MR LUMBAR SPINE WO CON CLINICAL INDICATION: BACK PAIN LBP worse on LT side. Bilateral foot toe numbness. Weakness in LT leg. Been to physical therapy. Symptoms 1yr. COMPARISON: CT CT ABDOMEN PELVIS W CON from 03/02/2020 TECHNIQUE: Standard multiplanar multiecho sequences are performed without contrast. 3-D MIP and myelographic images are also rendered and reviewed FINDINGS: There is normal alignment. Spinal cord ends at the L1-L2 level. L1-L2, L2-L3, and L3-L4 have an unremarkable appearance. L4-5: T1 and T2 hyperintense lesion involves the L4 vertebral body on the right consistent with hemangioma. There is mild bulging disc at L4-L5 with minimal anterolisthesis of L4 of 2 mm along with facet and ligamentum hypertrophy with mild bilateral lateral recess narrowing. There is a small amount fluid in the facets at L4-L5 consistent with arthritic changes with facet hypertrophy. There is mild to moderate bilateral foraminal narrowing slightly greater on the left. L5-S1: Unremarkable. There is mild hypertrophic change of the SI joints. There is fusion of the left SI joint No extruded herniated disc or canal stenosis. IMPRESSION: 1. There is mild bulging disc at L4-L5 with minimal anterolisthesis of L4 of 2 mm along with facet and ligamentum hypertrophy with mild bilateral lateral recess narrowing. There is a small amount fluid in the facets at L4-L5 consistent with arthritic changes with facet hypertrophy. There is mild to moderate bilateral foraminal narrowing slightly greater on the left. 2. There is mild hypertrophic change of the SI joints. There is fusion of the left SI joint 3. No extruded herniated disc or canal stenosis. Dictated b Eddie Sparks MD 04/05/2020 10:41 Eddie Sparks MD in [place] 04/05/2020 10:41
--- NOTE | 2020-04-03 10:00 | CT_ITS ---
PROCEDURE: CT CHEST WO/W CON CLINCAL INDICATION: nodules in lungs Pulmonary nodules COMPARISON: CT AGCHEST CT angio chest from 06/08/[address] ABDOMEN PELVIS W CON from 10/04/[address] ABDOMEN PELVIS W CON from 03/02/2020 TECHNIQUE: IV Contrast: 75ml Optiray 350 Axial images obtained with sagittal and coronal reformats. All CT scans at the facility use one or more dose reduction, viz: automated exposure control, ma/kV adjustment per patient size (including targeted exams where dose is matched to indication, i.e. head), or iterative reconstruction technique. FINDINGS: HEART AND MEDIASTINAL STRUCTURES: A small node is present in the anterior mediastinum anterior to the ascending aorta. This measures approximately 1.9 by 0.8 cm and is not significantly changed. LUNGS AND PLEURAL SPACES: 3 mm noncalcified nodule right upper lobe image 38 series 3 unchanged. There is faint ground-glass attenuation in the right lower lobe medially nonspecific and could be inflammatory or infectious. No change subpleural nodule in the lingula at 2-3 mm. There is a stable 7 mm nodule in the superior segment of the left lower lobe. No new nodules evident. No effusions or infiltrates. The BONY STRUCTURES: No acute bony abnormalities apparent. UPPER ABDOMEN: Nonspecific thickening noted of the esophagus. There is splenomegaly at 15 cm ADDITIONAL FINDINGS: No other significant abnormalities. IMPRESSION: Overall stable CT appearance of the chest. There is a 3 mm right upper lobe nodule, 7 mm left lower lobe nodule, and mildly prominent mediastinal lymph nodes which are all stable. Dictated b Eddie Sparks MD 04/04/2020 13:14 Eddie Sparks MD in [place] 04/04/2020 13:14
== END ==
PROVIDERS: PCP Nurse Practitioner Family; Visit Provider Clinical Nurse Specialist Family Health
DX: R93.89 Abnormal findings on diagnostic imaging of other specified body structures (principal); M54.5 Low back pain
CPT/HCPCS: 71270; 72148; 76376; Q9967

== ENCOUNTER → 2020-04-09 09:25 | Outpatient (POV) | payer BC, MEDICAID, SELFPAY ==
[2020-04-09 09:38] VITALS: BP 132/78; PULSE 85; RESP 18; TEMP 36.7; O2SAT 99; BMI 32.5
--- NOTE | 2020-04-09 13:26 | P.CONS_ITS ---
[facility] Pain Management SOAP Note Subjective:: Patient is a pleasant 55-year-old white male who presents today for follow-up after recent lumbar MRI. Patient has low back pain. It is nonradiating very focal in nature it worsens with bending or twisting. Patient rates his pain today a 8 out of 10. Of note patient's MRI showed a natural fusion of his left SI joint. Patient has quite a bit of left hip pain. Patient's had injective therapy with Ortho and no relief of his pain symptoms. Patient and I discussed a diagnostic medial branch block to see if this is beneficial for him. If it is he may be a neurotomy candidate. He is on Plavix we will get permission for him to come off of this prior to any injective therapy. Patient is failed anti- inflammatories and physical therapy. ROS General: no recent weight change, no fever, no sleep disturbances Respiratory: no cough, no shortness of air, no recurring pulmonary infections Cardiovascular/Peripheral Vascular: No chest pain, No palpitations, no edema, no shortness of breath. Gastrointestinal: no new onset incontinence, normal bowel movements reported Genitourinary: no new onset incontinence Musculoskeletal: Back pain Psychiatric: normal mood/ affect Neurological: [denies new onset weakness in extremities], [denies new onset balance issues] Objective:: Physical Exam General: Alert and oriented x3, no acute distress, pleasant and cooperative, [on room air] Lungs: Resps E/U, Symmetrical chest expansion, Eyes: PERRL Musculoskeletal: Flexion and extension of lumbar spine somewhat guarded secondary to pain, deep tendon reflexes normal, strength in upper and lower extremities [5/5], [abnormal gait noted] Neurological: speech clear, 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 Patient understands that this is diagnostic in nature. Patient may be a neurotomy candidate. He is on Plavix we will find out if he can come off of this prior to his injection. Patient's been instructed to call the office if he has any issues prior to his next appointment. I will follow-up with him after his injection reassess his symptoms at that time. Dr. Oleary has reviewed this note and agrees with this plan of care. This note was dictated using voice recognition software and may contain errors or omissions [facility] History I have reviewed the patient's past medical history: Yes Medical History: Reports:: Coronary Artery Disease, Cerebrovascular Accident, Hyperlipidemia, Hypertension, Kidney Stones, Renal Disease, Transient Ischemic Attacks (TIA) Denies:: Cancer, Diabetes Mellitus Type 1, Diabetes Mellitus Type 2, Internal Pacemaker, MRSA, Seizures *Have you ever received a pneumonia vaccine?: Yes *Have you received a flu vaccine this season?: Yes Other Medical History: Reports: Arthritis. Denies: Blood Transfusion Reaction Laterality Cases: Right: Arthroscopy Shoulder, Bilateral: Tonsillectomy Other Surgeries: Yes: No Previous Surgery, Cardiac Catheterization (Renal artery stent), Cardiac Surgery, Cholecystectomy, Coronary Stent, Hernia Repair, Other (neck surgery, L kidney). No: Pacemaker Amputation: Yes (R middle toe) Fractures: No - *Social History Smoking Status: Never smoker Tobacco Type: cigarettes Alcohol Intake: never Substance Use Type: denies use *Occupational Status:: other Housing: house Household Members: other *Travel in the last 8 weeks: None Family Hx:: Unable to obtain
== END ==
PROVIDERS: PCP Nurse Practitioner Family; Visit Provider Clinical Nurse Specialist Family Health
DX: M51.36 Other intervertebral disc degeneration, lumbar region (principal); M47.816 Spondylosis without myelopathy or radiculopathy, lumbar region
CPT/HCPCS: 99212

== ENCOUNTER 2020-04-20 12:33 | Day surgery (SDC) | payer BC, MEDICAID, SELFPAY ==
[2020-04-20 13:04] VITALS: BP 132/61; PULSE 56; RESP 18; TEMP 36.6; O2SAT 97; BMI 32.4
[2020-04-20 13:30] VITALS: BP 156/76; PULSE 59; RESP 18
[2020-04-20 13:31] VITALS: PULSE 57; RESP 18; O2SAT 96
--- NOTE | 2020-04-20 13:40 | P.PCN_ITS ---
- Procedure Date: 04/20/20 Time: 13:40 Anesthesiologist:: Jace Oleary MD Complications:: None Pre-procedure Diagnosis:: Degenerative disc disease of lumbar spine with lumbar spondylosis and facet arthropathy of lumbar spine Post-procedure Diagnosis:: Same Indications for Procedure:: Patient is a pleasant 55-year-old white male who we are treating for low back pain with lumbar spondylosis and facet arthropathy of lumbar spine. Patient has some increasing pain in the low back over the facet joints of L3-4, 4 5 and L5- S1. Increased pain with extension and twisting. We will plan on bilateral lumbar medial branch block/facet joint injections of L3-L4, L4 5 and L5-S1 today. Procedure Details:: Lumbar medial branch block Informed consent was obtained and the risks and benefits of the procedure was explained to the patient. The back was prepped using ChloraPrep. The skin and subcutaneous tissues were anesthetized using lidocaine. I placed 22-gauge spinal needles into the facet joint/medial branches of L3-L4, L4-L5 and L5-S1 bilaterally. Needle placement was confirmed with dye. After this we injected 3 mL bupivacaine 0.25% and Depo-Medrol 13 mg into each facet joint/medial branch of L3-L4, L5 and L5-S1 bilaterally. We used a total of 80 mg Depo-Medrol for all 3 levels bilaterally. The patient tolerated the procedure well with no complications. Plan and Disposition:: We will follow-up with him in 2 weeks. Will reevaluate symptoms at that time. If these are successful then we will plan on RF ablation to the facet joints of L3-L4, L4 5 and L5-S1 bilaterally.
[2020-04-20 13:43] VITALS: BP 141/64; PULSE 55; RESP 18; O2SAT 97
== END 2020-04-20 13:44 | disposition home or self-care (01) ==
LOC: SC.PAINP 12:34
PROVIDERS: PCP Nurse Practitioner Family; Visit Provider Anesthesiology
DX: M51.36 Other intervertebral disc degeneration, lumbar region (principal); M47.816 Spondylosis without myelopathy or radiculopathy, lumbar region; M12.88 Other specific arthropathies, not elsewhere classified, other specified site; I25.10 Atherosclerotic heart disease of native coronary artery without angina pectoris; I10 Essential (primary) hypertension; N40.0 Benign prostatic hyperplasia without lower urinary tract symptoms; M10.9 Gout, unspecified; F41.9 Anxiety disorder, unspecified; I65.21 Occlusion and stenosis of right carotid artery; Z87.442 Personal history of urinary calculi; Z95.818 Presence of other cardiac implants and grafts; Z90.89 Acquired absence of other organs
CPT/HCPCS: 64493; 64494; 64495; J1030; Q9966

== ENCOUNTER 2020-04-21 06:22 | Emergency (ER) | payer BC, MEDICAID, SELFPAY ==
[2020-04-21 06:35] VITALS: BP 168/90; PULSE 69; RESP 16; TEMP 36.8; O2SAT 97; BMI 32.4
--- NOTE | 2020-04-21 06:39 | US_ITS ---
PROCEDURE: US TESTICULAR CLINICAL INDICATION: testicular pain, right Testicular pain, evaluate for torsion COMPARISON: No exams were available for comparison FINDINGS: Right testicle is 3.6 x 2 x 2.5 cm. Left testicle is 3.6 x 1.8 x 2.6 cm. There is bilateral testicular blood flow. No testicular mass apparent. There are small bilateral hydroceles. No varicocele or spermatocele. IMPRESSION: Small bilateral hydroceles otherwise negative scrotal ultrasound Dictated by: Eddie Sparks MD 04/21/2020 08:12 Eddie Sparks MD in [place] 04/21/2020 08:12
--- NOTE | 2020-04-21 06:42 | HMH.EDGENADL ---
ED Disposition Clinical Impression: Epididymitis Disposition: Home, Self-Care Condition on Discharge: Good Instructions: DI for Epididymitis Additional Instructions: You have been evaluated for left testicular pain. Diagnosed with epididymitis. Please take levofloxacin as prescribed. Follow-up with your primary care doctor in 2 to 3 days for symptom recheck. Return to the emergency department if you have any new or worsening symptoms, fevers, vomiting, change in abdominal pain, difficulty urinating. Prescriptions: levoFLOXacin [Levaquin 500mg tab] 500 mg PO DAILY #10 tab Transmission Status: Pending to [id number] Referrals: Shakira Todd [Primary Care Provider] - Time of Disposition: 07:02 - Critical Care Critical Care Time: No Attestation: On , the high probability of a clinically significant, sudden or life threatening deterioration of the following system(s) required my full and direct attention, intervention and personal management. The time I documented below is in addition to time spent performing reported procedures but includes the following listed in this critical care notation. Medical Decision Making - Medical Records Medical records reviewed: Yes: I reviewed the patient's medical records. - Abdirahman Inquiry Pt receiving controlled substance: No Vital Signs: 04/21/20 06:35 04/21/20 07:00 Temperature 98.3 F Temperature Source Oral Pulse Rate [Right] 69 60 Respiratory Rate 16 18 Blood Pressure [Right Arm] 168/90 H 145/75 H Blood Pressure Mean [Right Arm] 116 98 Blood Pressure Source [Right Arm] Automatic Cuff Automatic Cuff Blood Pressure Position [Right Arm] Sitting Supine 02 Sat by Pulse Oximetry 97 100 Oxygen Delivery Method Room Air Room Air - Lab Data Lab Results 04/21/20 06:43: Urine Color Yellow, Urine Appearance Clear, Urine pH 6.0, Ur Specific Dresser 1.025, Urine Protein Trace, Urine Glucose (UA) Negative, Urine Ketones Negative, Urine Blood Trace-i, Urine Nitrate Negative, Urine Bilirubin Negative, Urine Urobilinogen 0.2, Ur Leukocyte Esterase Negative Orders (Tests/Meds): ORDERS Category Date Time Status UA [Urinalysis and Microscopic] Stat Lab 04/21/20 06:43 Results US Testicular Stat Ultrasound 04/21/20 06:39 Ordered Medical Decision Narrative: In summary this is a 55-year-old sexually active male presenting to the emergency department with right testicular pain. Patient is clinically stable on arrival, afebrile. Differential diagnoses include acute epididymitis, urinary tract infection. Cannot exclude testicular torsion, testicular mass, nephrolithiasis. Will obtain urinalysis, urine GC and chlamydia, testicular ultrasound. Urinalysis shows few RBCs, no signs of infection. Ultrasound shows venous and arterial flow to the bilateral testes. Right-sided small hydrocele. Most likely diagnosis is epididymitis. Patient treated presumptively with 250 IM Rocephin and 10 days of Levaquin. Overall improved and stable for discharge. General Adult HPI - General Stated complaint: injections in spine 04/20/20 now pain in right test Time Seen by Provider: 04/21/20 06:42 Mode of Arrival: Ambulatory Limitations: No Limitations Description of Symptoms (Recalled from ER Triage Doc. by RN): Pt advises he got spinal injections yesterday and felt instant pain in his right testicle and as time progressed the pain increased and never went away - History of Present Illness HPI narrative: 55-year-old male presenting to the emergency department with testicular pain. Pain is located in his right testicle. Feels like an intermittent pulling sensation. He had lumbar pain injections with Dr. Oleary yesterday. Pain seemed to start after that. He had intercourse last night and noticed he had pain with ejaculation. No penile discharge. No rashes or lesions on his skin. He is sexually active with his fianc?e. Denies other partners. No fevers, chills, nausea, vomiti
--- NOTE | 2020-04-21 06:43 | PC.NURSE ---
Notified rad we would need a testicle ultrasound
[2020-04-21 06:47] LABS: Microscopic, Urine URINE MICROSCOPIC (MICROSCOPIC)
[2020-04-21 06:54] LABS: Appearance,Urine CLEAR (Clear); Bilirubin,Urine Negative (Negative); Blood, Urine TRACE-I (Negative); Color,Urine YELLOW (Yellow); Glucose,Urine (UA) Negative (Negative); Ketones,Urine Negative (Negative); Leukocyte Esterase,Urine Negative (Negative); Nitrate,Urine Negative (Negative); Protein,Urine TRACE (Negative); Specific Gravity, Urine 1.025 (1.005-1.030); Urobilinogen,Urine 0.2 EU/dl (0.2)
[2020-04-21 07:00] VITALS: BP 145/75; PULSE 60; RESP 18; O2SAT 100
--- NOTE | 2020-04-21 07:00 | PC.NURSE ---
at bedside performing US
[2020-04-21 07:09] LABS: Mucus,Urine Trace /lpf; Squamous Epithelial Cell,Urine Occasional #/hpf (0-5)
--- NOTE | 2020-04-21 07:34 | PC.NURSE ---
US at bedside
[2020-04-21 07:55] VITALS: BP 140/66; PULSE 78; RESP 17; TEMP 37.1; O2SAT 100
[2020-04-24 11:19] LABS: Neisseria gonorrhoeae, NAA Negative (Negative)
== END 2020-04-21 08:10 | disposition home or self-care (01) ==
PROVIDERS: Emergency Provider Emergency Medicine; PCP Nurse Practitioner Family
DX: N45.1 Epididymitis (principal); I10 Essential (primary) hypertension; Z87.442 Personal history of urinary calculi; E78.5 Hyperlipidemia, unspecified; Z79.899 Other long term (current) drug therapy; Z88.0 Allergy status to penicillin; Z88.2 Allergy status to sulfonamides; Z90.09 Acquired absence of other part of head and neck
CPT/HCPCS: 76870; 81001; 87491; 87591; 96372; 99283

== ENCOUNTER → 2020-05-10 09:28 | Outpatient (POV) | payer BC, MEDICAID, SELFPAY ==
--- NOTE | 2020-05-10 09:48 | HMH.PAINSOAP ---
[facility] Pain Management SOAP Note Subjective:: Patient is a 55-year-old white male who presents today for follow-up after medial branch block/facet joint injections. Is being treated for chronic low back pain with lumbar spondylosis and facet arthropathy of his lumbar spine. Patient says he got about 90% relief after the injection for about 2 weeks. He does say, however, during the injection he felt like Dr. Oleary had my balls and advised . He says that a few days after the injection he woke to severe pain in his right testicle. He says he went to the emergency room and was told that he had epididymitis. Patient says after googling the diagnosis, he felt that his injections were directly related to his testicular pain. Patient says that he was given Levaquin and is now finished with his antibiotic therapy. He saw his urologist this morning before coming to this appointment. He was told he still has fluid on his right testicle. Say it is improving, however. Rates his pain a 7 out of 10 today. The pain to his low back has returned. Patient says that he would like to proceed with repeat medial branch blocks/facet injections and RFA following the medial branch blocks. Reports his pain to be worse with bending forward and with turning and twisting at the waist. Review of Systems General: No recent weight changes, no fever, no sleep disturbances Respiratory: No cough, no shortness of air, no recurring pulmonary infections Cardiovascular/peripheral vascular: No chest pain, no palpitations, no edema, no shortness of breath Gastrointestinal: No new onset incontinence, normal bowel movements reported Genitourinary: No new onset incontinence Musculoskeletal: Low back pain worse with bending forward Psychiatric: Normal mood/affect Neurological: [Denies weakness in extremities], [denies balance issues] Objective:: Physical exam General: Alert and oriented x3, no acute distress, pleasant and cooperative, [on room air] Lungs: Respirations even and unlabored, symmetrical chest expansion Eyes: PERRL Musculoskeletal: Flexion and extension of lumbar spine somewhat guarded secondary to pain, deep tendon reflexes normal, strength in upper and lower extremities [5/5], [abnormal gait noted] Neurological: 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 Patient is on Plavix. He does understand he will need to hold his anticoagulation therapy prior to the injection. He is in agreement. We will see him back in the clinic after his injection to reassess his symptoms. Patient is been instructed to contact clinic if he has any concerns before his next appointment. The patient and I specifically discussed risk factors for COVID19. These risks include, but are not limited to age greater than 60, heart or lung disease, diabetes, immunosuppression, and travel. We also discussed NSAIDs may worsen COVID19 infection or symptoms. Patient should not use NSAIDs to treat COVID19 signs or symptoms. Patient was also informed that any type of corticosteroid of any form (oral or injection) will decrease the patient's immune system response and may increase the likelihood of COVID19 infection [address] symptoms[address]. Oleary has reviewed this note and agrees with this plan of care. This note was dictated using voice recognition software and make contain errors or omissions. [facility] History I have reviewed the patient's past medical history: Yes Medical History: Reports:: Cancer, Coronary Artery Disease, Cerebrovascular Accident, Diabetes Mellitus Type 1, Hyperlipidemia, Hypertension, Kidney Stones, Renal Disease, Transient Ischemic Attacks (TIA) Denies:: Diabetes Mellitus Type 2, Internal Pacemaker, MRSA, Seizures *Have you ever receive
[2020-05-10 09:59] VITALS: BP 132/74; PULSE 72; RESP 18; TEMP 36.6; O2SAT 98; BMI 33.3
== END ==
PROVIDERS: PCP Nurse Practitioner Family; Visit Provider Clinical Nurse Specialist Family Health
DX: M51.36 Other intervertebral disc degeneration, lumbar region (principal); M47.816 Spondylosis without myelopathy or radiculopathy, lumbar region; M12.88 Other specific arthropathies, not elsewhere classified, other specified site
CPT/HCPCS: 99212

== ENCOUNTER 2020-05-25 12:50 | Day surgery (SDC) | payer BC, MEDICAID, SELFPAY ==
[2020-05-25 13:14] VITALS: BP 136/67; PULSE 56; RESP 18; TEMP 36.4; O2SAT 99; BMI 32.7
[2020-05-25 13:34] VITALS: BP 132/85; PULSE 85; RESP 18
[2020-05-25 13:35] VITALS: BP 140/74; PULSE 86; RESP 18; O2SAT 99
--- NOTE | 2020-05-25 13:40 | P.PCN_ITS ---
- Procedure Date: 05/25/20 Time: 13:40 Anesthesiologist:: Jace Oleary MD Complications:: None Pre-procedure Diagnosis:: Degenerative disc disease of lumbar spine with lumbar facet arthropathy and lumbar spondylosis Post-procedure Diagnosis:: Same Indications for Procedure:: Patient is a pleasant 55-year-old white male who we are treating for low back pain with lumbar spondylosis and lumbar facet arthropathy. He has increasing pain over the facet joints of L3-L4, 4 5 and L5-S1. He is done very well with previous medial branch blocks at all 3 levels on both sides. He had 3 weeks g reat pain relief he was 80% better. His pain is now returned. We will do repeat bilateral lumbar medial branch blocks of L3-L4, L4 5 and L5-S1. Procedure Details:: Lumbar medial branch block Informed consent was obtained and the risks and benefits of the procedure was explained to the patient. The back was prepped using ChloraPrep. The skin and subcutaneous tissues were anesthetized using lidocaine. I placed 22-gauge spinal needles into the facet joint/medial branches of L3-L4, L4-L5 and L5-S1 bilaterally. Needle placement was confirmed with dye. After this we injected 3 mL bupivacaine 0.25% and Depo-Medrol 13 mg into each facet joint/medial branch of L3-L4, L4-L5 and L5-S1 bilaterally. We used a total of 80 mg Depo-Medrol for all 3 levels bilaterally. The patient tolerated the procedure well with no complications. Plan and Disposition:: He had one round of successful medial branch blocks. We will do the second round and we will plan on RF ablation to the facet joints/needle branches of L3- L4, L4-5 and L5-S1 bilaterally.
[2020-05-25 13:43] VITALS: BP 110/69; PULSE 59; RESP 18; O2SAT 99
== END 2020-05-25 13:45 | disposition home or self-care (01) ==
LOC: SC.PAINP 12:53
PROVIDERS: PCP Nurse Practitioner Family; Visit Provider Anesthesiology
DX: M51.36 Other intervertebral disc degeneration, lumbar region (principal); M12.88 Other specific arthropathies, not elsewhere classified, other specified site; M47.816 Spondylosis without myelopathy or radiculopathy, lumbar region; I10 Essential (primary) hypertension; I25.10 Atherosclerotic heart disease of native coronary artery without angina pectoris; N40.0 Benign prostatic hyperplasia without lower urinary tract symptoms; Z72.0 Tobacco use; Z88.0 Allergy status to penicillin; Z88.2 Allergy status to sulfonamides; E78.5 Hyperlipidemia, unspecified; I65.29 Occlusion and stenosis of unspecified carotid artery; M10.9 Gout, unspecified
CPT/HCPCS: 64493; 64494; 64495; J1030

== ENCOUNTER → 2020-06-14 08:10 | Outpatient (POV) | payer BC, MEDICAID, SELFPAY ==
[2020-06-14 08:37] VITALS: BP 132/72; PULSE 77; RESP 18; O2SAT 98; BMI 33.0
--- NOTE | 2020-06-14 08:49 | HMH.PAINSOAP ---
[facility] Pain Management SOAP Note Subjective:: Patient is a 55-year-old white male who presents today for follow-up. For chronic low back pain is worse with bending forward and turning at the waist. Patient says that he got approximately 80% relief following his last medial branch block. He did have a second round of medial branch blocks for which he has gotten at least 80% relief each time. This last time, the patient got approximately 2-1/2 weeks of relief. His pain is starting to return. He did discuss undergoing RFA with Dr. Oleary. Patient has had physical therapy along with a continued home stretching program. He also uses ice and heat therapies. He is on Plavix and unable to take anti-inflammatories. Review of Systems General: No recent weight changes, no fever, no sleep disturbances Respiratory: No cough, no shortness of air, no recurring pulmonary infections Cardiovascular/peripheral vascular: No chest pain, no palpitations, no edema, no shortness of breath Gastrointestinal: No new onset incontinence, normal bowel movements reported Genitourinary: No new onset incontinence Musculoskeletal: Low back pain worse with turning and twisting at waist Psychiatric: Normal mood/affect Neurological: [Denies weakness in extremities], [denies balance issues] Objective:: Physical exam General: Alert and oriented x3, no acute distress, pleasant and cooperative, [on room air] Lungs: Respirations even and unlabored, symmetrical chest expansion Eyes: PERRL Musculoskeletal: Flexion and extension of lumbar spine somewhat guarded secondary to pain, deep tendon reflexes normal, strength in upper and lower extremities [5/5], [abnormal gait noted] positive Kemps test Neurological: Speech clear, 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 He is having worsening pain on the left side at this time. He has tried and failed other conservative therapies. He did get relief up to 80% with his medial branch blocks for approximately 2-1/2 weeks. He did undergo 2 rounds of medial branch blocks. We will see the patient back in the clinic after his RFA to reassess his symptoms. He is on Plavix. He does understand he will need to hold his anticoagulation therapy. He has been instructed to contact clinic if he has any concerns before his next appointment. The patient and I specifically discussed risk factors for COVID19. These risks include, but are not limited to age greater than 60, heart or lung disease, diabetes, immunosuppression, and travel. We also discussed NSAIDs may worsen COVID19 infection or symptoms. Patient should not use NSAIDs to treat COVID19 signs or symptoms. Patient was also informed that any type of corticosteroid of any form (oral or injection) will decrease the patient's immune system response and may increase the likelihood of COVID19 infection and symptoms[address] Dr. Oleary has reviewed this note and agrees with this plan of care. This note was dictated using voice recognition software and make contain errors or omissions. [facility] History I have reviewed the patient's past medical history: Yes Medical History: Reports:: Carotid Stenosis, Coronary Artery Disease, Cerebrovascular Accident, Hyperlipidemia, Hypertension, Kidney Stones, Renal Disease, Transient Ischemic Attacks (TIA) Denies:: Cancer, Diabetes Mellitus Type 1, Diabetes Mellitus Type 2, Internal Pacemaker, MRSA, Seizures *Have you ever received a pneumonia vaccine?: Yes *Have you received a flu vaccine this season?: Yes Other Medical History: Reports: Arthritis. Denies: Blood Transfusion Reaction Laterality Cases: Right: Arthroscopy Shoulder, Bilateral: Tonsillectomy Other Surgeries: Yes: No Previous Surgery, Cardiac Catheterization (Renal artery stent), Cardiac Surgery, Cholecystectomy, Colonoscopy,
== END ==
PROVIDERS: PCP Nurse Practitioner Family; Visit Provider Clinical Nurse Specialist Family Health
DX: M51.36 Other intervertebral disc degeneration, lumbar region (principal); M47.816 Spondylosis without myelopathy or radiculopathy, lumbar region; M12.88 Other specific arthropathies, not elsewhere classified, other specified site
CPT/HCPCS: 99212

== ENCOUNTER → 2020-06-26 09:46 | Outpatient (CLI) | payer BC, MEDICAID, SELFPAY ==
--- NOTE | 2020-06-26 09:51 | NM_ITS ---
PROCEDURE: NM GASTRIC EMPTYING STUDY CLINICAL INDICATION: EPIGASTRIC PAIN,BLOATING COMPARISON: No exams were available for comparison TECHNIQUE: Dose 0.51 mCi technetium sulfur colloid in radial labeled meal FINDINGS: The 1/2 emptying time is 52 minutes which is normal. Images submitted show no evidence of reflux. 99 percent of the gastric contents had emptied at 212 minutes. IMPRESSION: Normal gastric emptying Dictated by: Eddie Sparks MD 06/27/2020 16:30 Eddie Sparks MD in [place] 06/27/2020 16:30
== END ==
PROVIDERS: PCP Nurse Practitioner Family; Visit Provider Nurse Practitioner Family
DX: R10.13 Epigastric pain (principal); R14.0 Abdominal distension (gaseous)
CPT/HCPCS: 78264; A9541

== ENCOUNTER 2020-06-29 08:49 | Day surgery (SDC) | payer BC, MEDICAID, SELFPAY ==
[2020-06-29 09:15] VITALS: BP 132/65; PULSE 52; RESP 18; TEMP 36.2; O2SAT 99; BMI 32.3
[2020-06-29 10:04] VITALS: BP 135/88; PULSE 85; RESP 18; O2SAT 98
--- NOTE | 2020-06-29 10:10 | HMH.PMPROC ---
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 He has done very well with medial branch blocks. He does have increasing pain with extension. He is tender over the facet joints of L3-L4, L4-5 and L5-S1. He gets significant relief for several weeks after medial branch blocks. He has been off of his Plavix for 7 days. We will do left-sided RFA of the medial branch block/facet joints of L3-L4, L4-5 and L5-S1 today. Procedure Details:: Lumbar RFA informed consent was obtained and the risk and benefits of the procedure was explained to the patient. Patient was placed prone on the procedure table. The patient was prepped and draped in sterile fashion. C-arm fluoroscopy was used to view the lumbar spine. The skin and subcutaneous tissues were anesthetized using lidocaine. I placed 20-gauge RF needles into the facet joints of L3-4, L4-L5 and L5-S1 levels on the left side. We underwent sensory stimulation. There is good sensory stimulation at 0.8 V. We underwent motor stimulation. There is no motor stimulation at 2 V. We then anesthetized these levels with lidocaine and Depo-Medrol. I used a total of 40 mg Depo-Medrol for 3 levels. I then burned all 3 levels of L3-L4, L4-5 and L5-S1 facet joint/medial branches on the left side for 4 minutes at 80 ?C. Patient tolerated the procedure well with no complication. Plan and Disposition:: We will follow-up with him in 2 weeks. Will reevaluate symptoms at that time. We will plan on RF ablation to the right sided facet joints of L3-L4, L4-5 and L5-S1 if needed. Again he would need to be off of his Plavix for 7 days prior to this procedure.
[2020-06-29 10:11] VITALS: BP 140/78; PULSE 85; RESP 18; O2SAT 98
[2020-06-29 10:30] VITALS: BP 122/60; PULSE 52; RESP 18; O2SAT 99
== END 2020-06-29 10:31 | disposition home or self-care (01) ==
LOC: SC.PAINP 08:50
PROVIDERS: PCP Nurse Practitioner Family; Visit Provider Anesthesiology
DX: M51.36 Other intervertebral disc degeneration, lumbar region (principal); M47.816 Spondylosis without myelopathy or radiculopathy, lumbar region; M12.88 Other specific arthropathies, not elsewhere classified, other specified site; I10 Essential (primary) hypertension; N40.0 Benign prostatic hyperplasia without lower urinary tract symptoms; I25.10 Atherosclerotic heart disease of native coronary artery without angina pectoris; Z88.0 Allergy status to penicillin; Z88.2 Allergy status to sulfonamides; Z79.02 Long term (current) use of antithrombotics/antiplatelets; Z79.899 Other long term (current) drug therapy
CPT/HCPCS: 64635; 64636; J1040

== ENCOUNTER 2020-07-13 10:40 | Day surgery (SDC) | payer BC, MEDICAID, SELFPAY ==
[2020-07-13 10:57] VITALS: BP 110/65; PULSE 64; RESP 18; TEMP 36.6; O2SAT 98; BMI 33.0
[2020-07-13 11:16] VITALS: BP 132/85; PULSE 98; RESP 18; O2SAT 98
[2020-07-13 11:17] VITALS: BP 132/85; PULSE 74; RESP 18; O2SAT 98
--- NOTE | 2020-07-13 11:39 | HMH.PMPROC ---
- Procedure Date: 07/13/20 Time: 11:39 Anesthesiologist:: Jace Oleary MD Complications:: None Pre-procedure Diagnosis:: Degenerative disc disease of lumbar spine with lumbar spondylosis and facet arthropathy of lumbar spine Post-procedure Diagnosis:: Same Indications for Procedure:: Patient is a pleasant 55-year-old white male who we are treating for low back pain with lumbar spondylosis and lumbar facet arthropathy. He is status post RF ablation to the left side of facet joints of L3-4, L4-5 and L5-S1. He is doing very well with 80% relief of his pain symptoms on the left side. He has been off his Plavix for 7 days. We will do RF ablation to the right side of facet joints of L3-L4, 4 5 and L5-S1 today. Procedure Details:: Lumbar RFA informed consent was obtained and the risk and benefits of the procedure was explained to the patient. Patient was placed prone on the procedure table. The patient was prepped and draped in sterile fashion. C-arm fluoroscopy was used to view the lumbar spine. The skin and subcutaneous tissues were anesthetized using lidocaine. I placed 20-gauge RF needles into the facet joints of L3-L4, 4 5 and L5-S1 levels on the right side. We underwent sensory stimulation. There is good sensory stimulation at 0.8 V. We underwent motor stimulation. There is no motor stimulation at 2 V. We then anesthetized these levels with lidocaine and Depo-Medrol. I used a total of 40 mg Depo-Medrol for all 3 levels. I then burned all 3 levels of L3-L4, 4 5 and L5-S1 facet joint/medial branches on the right side for 4 minutes at 80 ?C. Patient tolerated the procedure well with no complication. Plan and Disposition:: We will follow-up with him in 1 month. Will reevaluate symptoms at that time.
[2020-07-13 11:50] VITALS: BP 139/64; PULSE 58; RESP 18; O2SAT 98
== END 2020-07-13 11:50 | disposition home or self-care (01) ==
LOC: SC.PAINP 10:41
PROVIDERS: PCP Nurse Practitioner Family; Visit Provider Anesthesiology
DX: M51.36 Other intervertebral disc degeneration, lumbar region (principal); M47.816 Spondylosis without myelopathy or radiculopathy, lumbar region; M12.88 Other specific arthropathies, not elsewhere classified, other specified site; I10 Essential (primary) hypertension; I25.10 Atherosclerotic heart disease of native coronary artery without angina pectoris; N40.0 Benign prostatic hyperplasia without lower urinary tract symptoms; Z88.2 Allergy status to sulfonamides; Z88.0 Allergy status to penicillin; Z88.8 Allergy status to other drugs, medicaments and biological substances
CPT/HCPCS: 64635; 64636; J1040

== ENCOUNTER 2020-07-17 17:48 | Emergency (ER) | payer BC, MEDICAID, SELFPAY ==
[2020-07-17 17:49] VITALS: BP 188/87; PULSE 71; RESP 15; TEMP 36.4; O2SAT 97; BMI 32.4
[2020-07-17 18:13] LABS: Basophils # 0.1 K/mm3 (0-0.2); Basophils % 1.2 % (0.1-2.0); Eosinophils # 0.1 K/mm3 (0.0-0.4); Eosinophils % 0.9 % (0.1-12.0); Hematocrit 50.6 % (42.0-52.0); Hemoglobin 17.9 g/dL (14.1-18.0); Lymphocytes # 2.3 K/mm3 (0.7-4.5); Lymphocytes % 23.9 % (10-50); Mean Corpuscular HGB Conc 35.3 g/dL (31.8-35.4); Mean Corpuscular Hemoglobin 33.6 pg (27.0-31.2); Mean Corpuscular Volume 95.1 fl (80-94); Mean Platelet Volume 9.5 fl (7.4-10.4); Monocytes # 0.6 K/mm3 (0.1-1.0); Monocytes % 6.3 % (1.7-9.3); Neutrophils # 6.5 K/mm3 (1.8-7.8); Neutrophils % 67.7 % (37.0-80.0); Platelet Count 182 K/mm3 (142-424); Red Blood Count 5.32 M/mm3 (4.60-6.20); Red Cell Distribution Width 15.2 % (11.5-17.5); White Blood Count 9.6 K/mm3 (4.8-10.8)
--- NOTE | 2020-07-17 18:14 | ECG_ITS ---
APPROVED REPORT Exam: Resting ECG HR:63 bpm ECG Measurements Heart Rate 63 AXES VT 162 P 39 QRSd 86 QRS 55 QT 374 T 12 QTc 382 Conclusion Sinus rhythm with premature atrial complexes Nonspecific T wave abnormality Abnormal ECG Electronically signed by : Randell Fang, 07/18/2020 08:30:25
--- NOTE | 2020-07-17 18:14 | XR_ITS ---
PROCEDURE: XR CHEST PORTABLE CLINICAL HISTORY: cough COMPARISON: CR CXR CHEST(2 VIEWS-NOT PORTABLE) from 05/27/2016 CR CXR2V XR chest 2V from 06/02/2018 CR XR CHEST 2V from 09/19/[address] CHEST WO/W CON from 04/03/2020 FINDINGS: The cardiomediastinal silhouette and pulmonary vascularity are within normal limits. The lungs are clear without infiltrates, suspicious nodules, or pleural effusions. No acute bony abnormalities. IMPRESSION: No acute findings. Dictated by: Eddie Sparks MD 07/17/2020 18:38 Eddie Sparks MD in [place] 07/17/2020 18:38
[2020-07-17 18:19] VITALS: BP 129/85; PULSE 47; O2SAT 97
[2020-07-17 18:25] LABS: Alanine Aminotransferase 28 U/L (12-78); Albumin Level 4.5 g/dl (3.5-5.0); Albumin/Globulin Ratio 1.6 (1.1-1.8); Alkaline Phosphatase 70 U/L (38-126); Anion Gap 13.2 mEq/L (5-15); Aspartate Amino Transferase 31 U/L (17-59); Bilirubin,Total 0.9 mg/dl (0.2-1.3); Blood Urea Nitrogen 25 mg/dl (9-20); Calcium 9.3 mg/dl (8.4-10.2); Carbon Dioxide 28 mmol/L (22.0-30.0); Chloride 99 mmol/L (98-107); Estimated Glomerular Filt Rate 63 ml/min (>60); GFR (African American) 76 ML/MIN (>60); Globulin 2.9 g/dL (1.3-3.2); Glucose 109 mg/dl (74-100); Potassium 4.2 mmoL/L (3.5-5.1); Sodium 136 mmol/L (136-145); Total Protein,Serum 7.4 g/dl (6.3-8.2)
[2020-07-17 18:30] LABS: Creatine Kinase 101 U/L (55-170)
--- NOTE | 2020-07-17 18:31 | HMH.EDGENADL ---
ED Disposition Clinical Impression: COVID-19 virus infection Fatigue Qualifiers: Fatigue type: unspecified Qualified Code(s): R53.83 - Other fatigue Disposition: Home, Self-Care Condition on Discharge: Fair Instructions: DI for Muscle Weakness, Preventing the Spread of Coronavirus Discharge Instructions Referrals: Shakira Todd [Primary Care Provider] - Time of Disposition: 19:14 - Critical Care Critical Care Time: No Attestation: On 07/17/20, the high probability of a clinically significant, sudden or life threatening deterioration of the following system(s) required my full and direct attention, intervention and personal management. The time I documented below is in addition to time spent performing reported procedures but includes the following listed in this critical care notation. Medical Decision Making - Medical Records Medical records reviewed: Yes: I reviewed the patient's medical records. - Abdirahman Inquiry Pt receiving controlled substance: No Vital Signs: 07/17/20 17:49 07/17/20 18:19 Temperature 97.6 F Temperature Source Oral Pulse Rate [Left Radial] 71 47 L Respiratory Rate 15 Blood Pressure [Right Arm] 188/87 H 129/85 Blood Pressure Mean [Right Arm] 120 99 Blood Pressure Source [Right Arm] Automatic Cuff Automatic Cuff Blood Pressure Position [Right Arm] Sitting Sitting 02 Sat by Pulse Oximetry 97 97 Oxygen Delivery Method Room Air Room Air - Lab Data Lab Results 07/17/20 18:00: WBC 9.6, RBC 5.32, Hgb 17.9, Hct 50.6, MCV 95.1 H, MCH 33.6 H, MCHC 35.3, RDW 15.2, Plt Count 182, MPV 9.5, Neut % (Auto) 67.7, Lymph % (Auto) 23.9, [place] % (Auto) 6.3, Eos % (Auto) 0.9, Baso % (Auto) 1.2, Neut # (Auto) 6.5, Lymph # (Auto) 2.3, [place] # (Auto) 0.6, Eos # (Auto) 0.1, Baso # (Auto) 0.1 07/17/20 18:00: Sodium 136, Potassium 4.2, Chloride 99, Carbon Dioxide 28, Anion Gap 13.2, BUN 25 H, Creatinine 1.20, Estimated GFR 63, Est GFR ( Amer) 76, Glucose 109 H, Calcium 9.3, Total Bilirubin 0.9, AST 31, ALT 28, Alkaline Phosphatase 70, Total Protein 7.4, Albumin 4.5, Globulin 2.9, Albumin/Globulin Ratio 1.6 07/17/20 18:00: Total Creatine Kinase 101, Troponin I < 0.01, NT-Pro-B Natriuret Pep 650 H 07/17/20 18:00: SARS-CoV-2 IgG Ab (Rapid) Positive A, SARS-CoV-2 IgM Ab (Rapid) Positive A 07/17/20 18:25: Urine Color Yellow, Urine Appearance Clear, Urine pH 6.0, Ur Specific [place] 1.025, Urine Protein Negative, Urine Glucose (UA) Negative, Urine Ketones Negative, Urine Blood Trace-l, Urine Nitrate Negative, Urine Bilirubin Negative, Urine Urobilinogen 0.2, Ur Leukocyte Esterase Negative, Urine RBC Occasional, Urine WBC 3-5, Ur Squamous Epith Cells Occasional, Fine Granular Casts Occasional Result diagrams: 07/17/20 18:00 07/17/20 18:00 Orders (Tests/Meds): ED MEDICATIONS Discontinued Medications Generic Name Dose Route Start Last Admin Trade Name Freq PRN Reason Stop Dose Admin Ketorolac Tromethamine 15 mg 07/17/20 18:02 07/17/20 18:45 Ketorolac 30mg/Ml Vial IV 07/17/20 18:03 Not Given ONCE ONE Ondansetron HCl 4 mg 07/17/20 18:03 Ondansetron 4mg/2ml Vial IV 07/17/20 18:04 ONCE ONE ORDERS Category Date Time Status CT abdomen pelvis w con Stat Cat Scan 07/17/20 18:02 Stop Req Covid-19 Nasal PCR Sendout [place] Stat Lab 07/17/20 18:15 Ordered Flu A&B Antigens, Rapid [Rapid Influenza A&B Antigens] Lab 07/17/20 18:53 Received Stat Troponin I Q3H Lab 07/17/20 21:15 Ordered Troponin I Q3H Lab 07/18/20 00:15 Ordered Medical Decision Narrative: In summary this is a 55-year-old male presenting to the emergency department with generalized malaise and fatigue. Overall well-appearing. Vital signs within normal limits, afebrile. Most likely diagnosis is viral infection, influenza or Covid. Cannot exclude acute kidney injury, dehydration, electrolyte abnormality, ACS. Plan to obtain CBC, CMP, chest x-ray, EKG, troponin profile, CK, BNP. EKG shows sinus rhythm
[2020-07-17 18:32] LABS: Microscopic, Urine URINE MICROSCOPIC (MICROSCOPIC)
[2020-07-17 18:37] LABS: Appearance,Urine CLEAR (Clear); Bilirubin,Urine Negative (Negative); Blood, Urine TRACE-L (Negative); Color,Urine YELLOW (Yellow); Glucose,Urine (UA) Negative (Negative); Ketones,Urine Negative (Negative); Leukocyte Esterase,Urine Negative (Negative); Nitrate,Urine Negative (Negative); Protein,Urine Negative (Negative); Specific Gravity, Urine 1.025 (1.005-1.030); Urobilinogen,Urine 0.2 EU/dl (0.2)
[2020-07-17 18:39] LABS: NT Pro Brain Natriuretic Pep. 650 pg/mL (0-125)
[2020-07-17 18:52] LABS: Troponin I < 0.01 ng/ml (0.00-0.034)
[2020-07-17 19:00] VITALS: BP 144/90; PULSE 62; RESP 17; O2SAT 96
[2020-07-17 19:10] LABS: Fine Granular Casts,Urine Occasional #/lpf (0); RBC,Urine Occasional #/hpf (0-3); Squamous Epithelial Cell,Urine Occasional #/hpf (0-5)
[2020-07-17 19:11] LABS: Coronavirus 19 IgG Antibody Positive (Negative)
[2020-07-17 19:12] LABS: Coronavirus 19 IgM Antibody Positive (Negative)
[2020-07-17 19:30] VITALS: BP 165/97; PULSE 57; RESP 17; O2SAT 96
[2020-07-17 19:52] VITALS: BP 142/75; PULSE 78; RESP 16; TEMP 36.8; O2SAT 98
[2020-07-18 21:28] LABS: Covid-19 Nasal PCR Sendout Lex Not Detected
== END 2020-07-17 20:10 | disposition home or self-care (01) ==
PROVIDERS: Emergency Provider Emergency Medicine; PCP Nurse Practitioner Family
DX: U07.1 COVID-19 (principal); I25.10 Atherosclerotic heart disease of native coronary artery without angina pectoris; I10 Essential (primary) hypertension; E78.5 Hyperlipidemia, unspecified; Z86.73 Personal history of transient ischemic attack (TIA), and cerebral infarction without residual deficits; Z88.0 Allergy status to penicillin; Z88.2 Allergy status to sulfonamides; Z79.899 Other long term (current) drug therapy
CPT/HCPCS: 71045; 80053; 81001; 82550; 83880; 84484; 85025; 86328; 87275; 87276; 93005; 99284; U0004

== ENCOUNTER → 2020-08-06 08:08 | Outpatient (POV) | payer BC, MEDICAID, SELFPAY ==
[2020-08-06 08:26] VITALS: BP 125/74; PULSE 71; RESP 18; TEMP 36.8; O2SAT 98; BMI 32.4
--- NOTE | 2020-08-06 08:26 | P.CONS_ITS ---
[facility] Pain Management SOAP Note Subjective:: Patient is a pleasant 55-year-old white male who presents today for follow-up after lumbar RFA. Patient is done extremely well with this. His pain in his back has been relieved most of his pain now is in his neck and down his left arm. Patient has had a cervical surgery in the past. Patient is interested in cervical epidural steroid injections I do believe this would be beneficial to him. He rates his pain a 4 out of 10. Patient is on Plavix however he does have permission to come off prior to injection therapy. ROS General: no recent weight change, no fever, no sleep disturbances Respiratory: no cough, no shortness of air, no recurring pulmonary infections Cardiovascular/Peripheral Vascular: No chest pain, No palpitations, no edema, no shortness of breath. Gastrointestinal: no new onset incontinence, normal bowel movements reported Genitourinary: no new onset incontinence Musculoskeletal: Neck pain, arm pain Psychiatric: normal mood/ affect Neurological: [denies new onset weakness in extremities], [denies new onset balance issues] Objective:: Physical Exam General: Alert and oriented x3, no acute distress, pleasant and cooperative, [on room air] Lungs: Resps E/U, Symmetrical chest expansion, Eyes: PERRL Musculoskeletal: Flexion and extension of cervical spine somewhat guarded secondary to pain, deep tendon reflexes normal, strength in upper and lower extremities [5/5], lightly antalgic gait noted Neurological: speech clear, tag stringer equal, no gross sensory deficits Assessment:: Degenerative disc disease lumbar spine lumbar spondylosis facet arthropathy lumbar spine, degenerative disc disease cervical spine with cervical radiculopathy, postlaminectomy syndrome Plan:: We will schedule patient for C5-C6 cervical epidural steroid injection. I believe given his symptomology this will benefit him. I will follow-up with him after this reassess his symptoms at that time he has been instructed to call the office if he has any issues prior to his next appointment. Dr. Oleary has reviewed this note and agrees with this plan of care. This note was dictated using voice recognition software and may contain errors or omissions [facility] History I have reviewed the patient's past medical history: Yes Medical History: Reports:: Carotid Stenosis, Coronary Artery Disease, Cerebrovascular Accident, Hyperlipidemia, Hypertension, Kidney Stones, Peripheral Vascular Disease, Renal Disease, Transient Ischemic Attacks (TIA) Denies:: Cancer, Diabetes Mellitus Type 1, Diabetes Mellitus Type 2, Internal Pacemaker, MRSA, Seizures *Have you ever received a pneumonia vaccine?: No *Have you received a flu vaccine this season?: No Other Medical History: Reports: Arthritis. Denies: Blood Transfusion Reaction Laterality Cases: Right: Arthroscopy Shoulder, Bilateral: Tonsillectomy Other Surgeries: Yes: No Previous Surgery, Cardiac Catheterization, Cardiac Surgery, Cholecystectomy, Colonoscopy, Coronary Stent, Hernia Repair, Other (left renal artery stent). No: Pacemaker Amputation: No Fractures: No - *Social History Smoking Status: Never smoker Tobacco Type: cigarettes Alcohol Intake: never Substance Use Type: denies use *Occupational Status:: employed Housing: house Household Members: spouse *Travel in the last 8 weeks: None Family Hx:: Unable to obtain
== END ==
PROVIDERS: PCP Nurse Practitioner Family; Visit Provider Clinical Nurse Specialist Family Health
DX: M51.36 Other intervertebral disc degeneration, lumbar region (principal); M54.06 Panniculitis affecting regions of neck and back, lumbar region; M47.896 Other spondylosis, lumbar region; M50.10 Cervical disc disorder with radiculopathy, unspecified cervical region; M96.1 Postlaminectomy syndrome, not elsewhere classified
CPT/HCPCS: 99212

== ENCOUNTER → 2020-08-22 07:39 | Outpatient (CLI) | payer BC, MEDICAID, SELFPAY ==
--- NOTE | 2020-08-22 07:47 | XR_ITS ---
PROCEDURE: XR CERVICAL SPINE 5V CLINICAL INDICATION: NECK PAIN COMPARISON: No exams were available for comparison FINDINGS: Normal curvature and alignment. There has been previous anterior cervical fusion C6 and C7 with a semiopaque spacer C6-7 disc space. There is mild anterior osteophytic spurring at the inferior border of C5. Oblique films show mild neural foraminal narrowing right-sided at C5-6 level secondary to spurring of the uncinate joints. Minor narrowing of the neural foramen right-side at the C3-4 level for the same reason. The remaining neural foramina normal. The prevertebral soft tissues are normal and the odontoid is normal. There is a right internal carotid stent. IMPRESSION: Post surgical change, mild right-sided neural foraminal narrowing as described Dictated by: Dr. Levi Verma MD 08/22/2020 09:17 Dr. Levi Vemra MD in [place] 08/22/2020 09:17
== END ==
PROVIDERS: PCP Nurse Practitioner Family; Visit Provider Clinical Nurse Specialist Family Health
DX: M54.2 Cervicalgia (principal)
CPT/HCPCS: 72050

== ENCOUNTER → 2020-08-28 14:08 | Outpatient (CLI) | payer BC, MEDICAID, SELFPAY ==
--- NOTE | 2020-08-28 14:13 | MR_ITS ---
PROCEDURE: MR CERVICAL SPINE WO CON CLINICAL INDICATION: NECK PAIN LT SIDED NECK AND SHOULDER PAIN AND NUMBNESS. PAIN IS WORSE IN 4TH-5TH DIGITS. PRIOR HX NECK SURGERY X18YRS AGO. HEADACHE, NAUSEA AND SWELLING IN LT HAND. PRIOR X-RAY 08-22-20 COMPARISON: CR XR CERVICAL SPINE 5V from 08/22/2020 TECHNIQUE: Standard multiplanar multiecho sequences are performed without contrast. 3-D MIP and myelographic images are also rendered and reviewed FINDINGS: There is normal alignment. The craniocervical junction has an unremarkable appearance. C2-C3: There are small bilateral disc osteophyte complexes at both right and left paracentral region causing mild bilateral lateral recess narrowing C3-C4: Minimal bulging disc with mild facet and ligamentum hypertrophy with right-sided foraminal narrowing. C4-C5: There is a small central disc protrusion with narrowing of the canal at 10 mm without impingement. C5-C6: Degenerative disc disease with a bulging disc.. There is broad-based central and left paracentral disc protrusion/disc osteophyte complex. This is causing canal stenosis of 8 mm with impingement upon the anterior aspect of the cord with contour deformity of the anterior aspect of the cord. There is bilateral lateral recess and foraminal narrowing. C6-C7: Prior anterior cervical disc fusion. There is left lateral recess and foraminal narrowing from hypertrophic changes. C7-T1 and T1-T2 have an unremarkable appearance. IMPRESSION: Abnormal MRI of the cervical spine. Multilevel cervical spondylosis is noted with resultant lateral recess and foraminal narrowing and canal stenosis.. Please see above for detailed description at each level. There is impingement upon the cord anteriorly at C5-C6 with canal stenosis from a bulging disc and broad-based central left paracentral disc protrusion. Dictated by: Eddie Sparks MD 08/30/2020 12:43 Eddie Sparks MD in [place] 08/30/2020 12:43
== END ==
PROVIDERS: PCP Nurse Practitioner Family; Visit Provider Clinical Nurse Specialist Family Health
DX: M54.2 Cervicalgia (principal)
CPT/HCPCS: 72141; 76376

== ENCOUNTER → 2020-09-10 08:03 | Outpatient (POV) | payer BC, SELFPAY ==
[2020-09-10 08:42] VITALS: BP 154/44; PULSE 60; RESP 18; TEMP 36.8; O2SAT 99; BMI 32.4
--- NOTE | 2020-09-10 08:50 | HMH.PAINSOAP ---
[facility] Pain Management SOAP Note Subjective:: Patient is a pleasant 55-year-old white male who presents today for follow-up. Patient had an MRI. He does have a C5-C6 impingement upon the anterior aspect of the cord. Patient has pain in his neck radiating down his left arm. Pain is worse in his fourth and fifth digit. Patient has had neck surgery in the past [address] Millan. Patient is interested in seeing Dr. Johnson. We will set this up for him. ROS General: no recent weight change, no fever, no sleep disturbances Respiratory: no cough, no shortness of air, no recurring pulmonary infections Cardiovascular/Peripheral Vascular: No chest pain, No palpitations, no edema, no shortness of breath. Gastrointestinal: no new onset incontinence, normal bowel movements reported Genitourinary: no new onset incontinence Musculoskeletal: Neck pain, arm pain Psychiatric: normal mood/ affect Neurological: [denies new onset weakness in extremities], [denies new onset balance issues] Objective:: Physical Exam General: Alert and oriented x3, no acute distress, pleasant and cooperative, [on room air] Lungs: Resps E/U, Symmetrical chest expansion, Eyes: PERRL Musculoskeletal: Flexion and extension of cervical spine somewhat guarded secondary to pain, deep tendon reflexes normal, strength in upper and lower extremities [5/5], slightly antalgic gait noted Neurological: speech clear, supervisor tunnel heading equal, no gross sensory deficits Assessment:: Degenerative disc disease of cervical spine cervical radiculopathy, postlaminectomy syndrome cervical spine Plan:: We will send the patient to Dr. Johnson for consultation. I will follow up with the patient after this reassess his symptoms as needed. Patient's been instructed to call the office if he has any issues arise. Dr. Oleary has reviewed this note and agrees with this plan of care. This note was dictated using voice recognition software and may contain errors or omissions [facility] History I have reviewed the patient's past medical history: Yes Medical History: Reports:: Carotid Stenosis, Coronary Artery Disease, Cerebrovascular Accident, Hyperlipidemia, Hypertension, Kidney Stones, Peripheral Vascular Disease, Renal Disease, Transient Ischemic Attacks (TIA) Denies:: Cancer, Diabetes Mellitus Type 1, Diabetes Mellitus Type 2, Internal Pacemaker, MRSA, Seizures *Have you ever received a pneumonia vaccine?: Yes *Have you received a flu vaccine this season?: Yes Other Medical History: Reports: Arthritis. Denies: Blood Transfusion Reaction Laterality Cases: Right: Arthroscopy Shoulder, Bilateral: Tonsillectomy Other Surgeries: Yes: No Previous Surgery, Cardiac Catheterization, Cardiac Surgery, Cholecystectomy, Colonoscopy, Coronary Stent, Hernia Repair, Other (left renal artery stent). No: Pacemaker Amputation: No Fractures: No - *Social History Smoking Status: Never smoker Tobacco Type: cigarettes Alcohol Intake: never Substance Use Type: denies use *Occupational Status:: employed Housing: house Household Members: spouse *Travel in the last 8 weeks: None Family Hx:: Unable to obtain
== END ==
PROVIDERS: Visit Provider Clinical Nurse Specialist Family Health
DX: M50.10 Cervical disc disorder with radiculopathy, unspecified cervical region (principal); M96.1 Postlaminectomy syndrome, not elsewhere classified
CPT/HCPCS: 99212; G0463

== ENCOUNTER 2020-10-17 19:15 | Emergency (ER) | payer BC, SELFPAY ==
[2020-10-17 19:33] VITALS: BP 152/60; PULSE 50; RESP 14; TEMP 36.6; O2SAT 97; BMI 35.2
--- NOTE | 2020-10-17 19:39 | HMH.EDUTC ---
[facility] [place] Disposition Clinical Impression: Eye problem Disposition: Home, Self-Care Condition on Discharge: Good Additional Instructions: Warm compresses to eye area multiple times daily Follow up with Dr Torres at [facility] or other Eye Doctor as soon as possible for further evaluation and examination Return if needed Straight to ER if any life threatening symptoms Referrals: Shakira Todd [Primary Care Provider] - As needed [facility] [Other] Time of Disposition: 20:01 Medical Decision Making - Abdirahman Inquiry Pt receiving controlled substance: No Abdirahman was queried for this patient: No Vital Signs: 10/17/20 19:33 10/17/20 19:40 Temperature 98 F 98 F Temperature Source Tympanic Pulse Rate 97 H Pulse Rate [Right] 50 L Respiratory Rate 14 16 Blood Pressure 150/62 H Blood Pressure [Right Arm] 152/60 H Blood Pressure Mean [Right Arm] 90 Blood Pressure Source [Right Arm] Automatic Cuff Blood Pressure Position Sitting Blood Pressure Position [Right Arm] Sitting 02 Sat by Pulse Oximetry 97 Oxygen Delivery Method Room Air Medical Decision Narrative: Spoke with ER physician Dr Mccartney and he came to [facility] and looked at left eye, appears possible stopped up tear duct, no drainage recommended warm compresses and follow up with Eye Doctor as soon as possible [facility] [place] HPI - General Stated complaint: Left eye swollen face swollen Time Seen by Provider: 10/17/20 19:39 Mode of Arrival: Ambulatory Source of Information: Patient Limitations: No Limitations Description of Symptoms (Recalled from Triage Doc. by RN): INNER CORNER OF LEFT EYE IS SWOLLEN, ITCHING AND GARDNER FOR ABOUT A WEEK NOW. HE HAS A KNOW ABOUT THE SIZE OF PEA. HEENT Symptoms (Recalled from RN notes): Yes (LEFT EYE SWOLLEN, ITCHING AND BURNING) Resp Symptoms (Recalled from RN notes): No Skin Symptoms (Recalled from RN notes): No MS Symptoms (Recalled from RN notes): No Functional Status (Recalled from RN notes): NA - History of Present Illness Provider Complaint: Patient states that he noticed area on the inside corner of his left eye State that it has itched and burned and feels irritated States that he has not had any drainage but has a pea sized round hard area that he can feel in there Denies known injury and state that area is sore to the touch - Related Data Home Medications Medication Instructions Recorded Confirmed Amlodipine Besylate [Amlodipine 10 mg PO DAILY 06/02/18 10/01/20 10mg Tab] Benazepril HCl 40 mg PO DAILY 06/02/18 10/01/20 Tamsulosin HCl [Flomax 0.4mg 0.4 mg PO HS 06/02/18 10/01/20 capsule] allopurinoL [Allopurinol 300mg 300 mg PO DAILY 06/02/18 10/01/20 tablet] Aspirin [Low Dose Aspirin EC] 81 mg PO DAILY 09/19/19 10/01/20 Clopidogrel Bisulfate [Plavix 75mg 75 mg PO QDAY 09/19/19 10/01/20 Tab] carvediloL [Carvedilol 6.25mg Tab] 6.25 mg PO BID 09/19/19 10/01/20 coenzyme Q10 100 mg capsule 100 mg PO DAILY 03/12/20 10/01/20 omeprazole 20 mg capsule,delayed 20 mg PO DAILY cap 10/01/20 10/01/20 release oxybutynin chloride 5 mg tablet 10 mg PO DAILY tab 10/01/20 10/01/20 Previous Rx's Medication Instructions Recorded Acetaminophen 1,000 mg PO TID PRN #60 tab 09/19/19 Allergies Allergy/AdvReac Type Severity Reaction Status Date / Time atorvastatin Allergy Mild Verified 10/17/20 19:22 amoxicillin Allergy Verified 10/17/20 19:22 cephalexin [From Keflex] Allergy Verified 10/17/20 19:22 Penicillins Allergy Verified 10/17/20 19:22 Sulfa (Sulfonamide Allergy Verified 10/17/20 19:22 Antibiotics) - Worker's Comp Is this a Worker's Comp case?: No H History - Hepatitis A Screen Drug use history?: No High risk sexual behaviors?: No History of sexually transmitted infection?: No Currently employed?: No Childcare worker?: No Do you have indoor plumbing?: Yes Do you have electricity?: Yes Attestation statement:: This patient has been screened for
[2020-10-17 19:40] VITALS: BP 150/62; PULSE 97; RESP 16; TEMP 36.6
== END 2020-10-17 20:01 | disposition home or self-care (01) ==
PROVIDERS: Emergency Provider Nurse Practitioner; PCP Nurse Practitioner Family
DX: H02.845 Edema of left lower eyelid (principal); I10 Essential (primary) hypertension; I25.10 Atherosclerotic heart disease of native coronary artery without angina pectoris; E78.5 Hyperlipidemia, unspecified; N28.9 Disorder of kidney and ureter, unspecified; Z88.0 Allergy status to penicillin; Z88.2 Allergy status to sulfonamides
CPT/HCPCS: 99202; G0463

== ENCOUNTER 2020-12-24 15:46 | Emergency (ER) | payer BC, SELFPAY ==
--- NOTE | 2020-12-24 15:35 | ECG_ITS ---
APPROVED REPORT Exam: Resting ECG HR:68 bpm ECG Measurements Heart Rate 68 AXES KS 150 P 52 QRSd 84 QRS 26 QT 390 T 32 QTc 414 Conclusion Sinus rhythm with premature atrial complexes Otherwise normal ECG Electronically signed by : Randell Fang, 12/25/2020 08:47:45
[2020-12-24 15:46] VITALS: BP 145/92; PULSE 63; RESP 18; TEMP 36.6; O2SAT 98; BMI 33.7
--- NOTE | 2020-12-24 15:59 | CT_ITS ---
PROCEDURE: CT ABDOMEN PELVIS WO CON CLINICAL INDICATION: ABD PAIN Abdominal pain with cramping and vomiting COMPARISON: CT ABDPELWO CT abdomen pelvis wo con from 06/02/2018 TECHNIQUE: Axial images obtained with sagittal and coronal reformats. All CT scans at the facility use one or more dose reduction, viz: automated exposure control, ma/kV adjustment per patient size (including targeted exams where dose is matched to indication, i.e. head), or iterative reconstruction technique. FINDINGS: Circumferential soft tissue density has developed at the distal esophagus with narrowing of the esophageal lumen with some infiltration of the surrounding mediastinal fat. This is incompletely imaged. Chest CT with contrast suggested for further evaluation. There is some fluid density on both right and left paraesophageal region. There is trace right-sided pleural effusion. There is a small nodular opacity in the left lower lobe medially measuring approximately 10 mm with some minimal atelectatic change at this area. There has been a prior cholecystectomy. Splenomegaly at 15 cm. There is a left renal artery stent present. The adrenal glands have an unremarkable appearance. The pancreas is unremarkable. Bilateral nephrolithiasis is noted with a 4 mm stone in the mid polar region of the right kidney. A stone or cluster of stones noted in the lower pole of the left kidney at 12 by 6 mm. No ureteral calculi. No hydronephrosis. No intestinal obstruction or free air. There is colonic diverticulosis. No evidence of diverticulitis. No evidence of appendicitis. The prostate is enlarged at 6 cm. There are few small inguinal lymph nodes on both sides. No acute bony findings. IMPRESSION: 1. Severe circumferential thickening of the esophagus with narrowing of the esophageal lumen. Suspected stranding of the paraesophageal fat. This may be neoplastic or inflammatory/infectious. This is incompletely imaged and chest CT is suggested for further evaluation. Would recommend performing this with contrast and also with a small amount of oral contrast just before imaging. 2. Bilateral nephrolithiasis. 3. Splenomegaly Dictated by: Eddie Sparks MD 12/24/2020 17:00 Eddie Sparks MD in [place] 12/24/2020 17:00
[2020-12-24 16:12] LABS: Basophils # 0.1 K/mm3 (0-0.2); Eosinophils # 0.3 K/mm3 (0.0-0.4); Eosinophils % 4.2 % (0.1-12.0); Hematocrit 46.2 % (42.0-52.0); Hemoglobin 16.4 g/dL (14.1-18.0); Lymphocytes # 2.7 K/mm3 (0.7-4.5); Lymphocytes % 33.3 % (10-50); Mean Corpuscular HGB Conc 35.4 g/dL (31.8-35.4); Mean Corpuscular Hemoglobin 30.7 pg (27.0-31.2); Mean Corpuscular Volume 86.7 fl (80-94); Mean Platelet Volume 7.8 fl (7.4-10.4); Monocytes # 0.5 K/mm3 (0.1-1.0); Monocytes % 6.6 % (1.7-9.3); Neutrophils # 4.4 K/mm3 (1.8-7.8); Neutrophils % 54.9 % (37.0-80.0); Platelet Count 208 K/mm3 (142-424); Red Blood Count 5.33 M/mm3 (4.60-6.20); Red Cell Distribution Width 13.8 % (11.5-17.5)
[2020-12-24 16:26] LABS: Alanine Aminotransferase 22 U/L (12-78); Albumin Level 3.8 g/dl (3.5-5.0); Albumin/Globulin Ratio 1.3 (1.1-1.8); Alkaline Phosphatase 71 U/L (38-126); Anion Gap 9.9 mEq/L (5-15); Aspartate Amino Transferase 29 U/L (17-59); Bilirubin,Total 0.7 mg/dl (0.2-1.3); Blood Urea Nitrogen 17 mg/dl (9-20); Calcium 9.2 mg/dl (8.4-10.2); Carbon Dioxide 27 mmol/L (22.0-30.0); Chloride 105 mmol/L (98-107); Creatinine Clearance Estimated 116 mL/min (50-200); Estimated Glomerular Filt Rate 70 ml/min (>60); GFR (African American) 84 ML/MIN (>60); Globulin 2.9 g/dL (1.3-3.2); Glucose 110 mg/dl (74-100); Potassium 3.9 mmoL/L (3.5-5.1); Sodium 138 mmol/L (136-145); Total Protein,Serum 6.7 g/dl (6.3-8.2)
[2020-12-24 16:44] LABS: Troponin I < 0.01 ng/ml (0.00-0.034)
[2020-12-24 17:00] VITALS: BP 123/72; PULSE 64; RESP 18; O2SAT 97
[2020-12-24 18:28] LABS: Microscopic, Urine URINE MICROSCOPIC (MICROSCOPIC)
[2020-12-24 18:31] LABS: Appearance,Urine CLEAR (Clear); Bilirubin,Urine Negative (Negative); Blood, Urine Negative (Negative); Color,Urine YELLOW (Yellow); Glucose,Urine (UA) Negative (Negative); Ketones,Urine Negative (Negative); Leukocyte Esterase,Urine Negative (Negative); Nitrate,Urine Negative (Negative); Protein,Urine Negative (Negative); Urobilinogen,Urine 0.2 EU/dl (0.2)
[2020-12-24 18:38] LABS: Bacteria,Urine 1+ /lpf; Mucus,Urine 1+ /lpf
--- NOTE | 2020-12-24 19:03 | CT_ITS ---
PROCEDURE INFORMATION: Exam: CT Chest With Contrast; Diagnostic Exam date and time: 12/24/2020 7:03 PM Age: 55 years old Clinical indication: Abnormal findings; Other: Chest CT with oral and iv contrast recommended by our radiologist; Patient HX: Chest and abdomen pain with cramping and vomiting. ; Additional info: Chest/abd pain TECHNIQUE: Imaging protocol: Diagnostic computed tomography of the chest with contrast. Radiation optimization: All CT scans at this facility use at least one of these dose optimization techniques: automated exposure control; mA and/or kV adjustment per patient size (includes targeted exams where dose is matched to clinical indication); or iterative reconstruction. Contrast material: ISOVUE; Contrast volume: 75 ml; Contrast route: IV; Other contrast: Oral, gastrograffin, 30; COMPARISON: CT CHEST WO/W CON 04/03/2020 10:26 AM FINDINGS: Lungs: Tiny ground-glass opacity within the periphery of the right upper lobe (series 3, image 30), likely minimal pneumonitis. 4 mm noncalcified nodule within the posteromedial aspect of the left lower lobe (series 3, image 42), unchanged. Given stability from 2018, no further evaluation necessary. Pleural spaces: Unremarkable. No pneumothorax. No pleural effusion. Heart: Normal. Mediastinal space: Moderate, diffuse circumferential wall thickening of the entire thoracic esophagus, with adjacent associated fat stranding and fluid, most compatible with infectious/inflammatory esophagitis. No contrast extravasation to suggest esophageal perforation. Aorta: Normal. Lymph nodes: No pathologically-enlarged lymph nodes. Gallbladder and bile ducts: Gallbladder surgically absent. Bones/joints: Multilevel thoracic spine degenerative disc disease. Partially visualized lower cervical spine anterior fusion hardware. Soft tissues: Normal. IMPRESSION: 1. Moderate, diffuse circumferential wall thickening of the entire thoracic esophagus, with adjacent associated fat stranding and fluid, most compatible with infectious/inflammatory esophagitis. No contrast extravasation to suggest esophageal perforation. 2. Tiny ground-glass opacity within the periphery of the right upper lobe (series 3, image 30), likely minimal pneumonitis. 3. 4 mm noncalcified nodule within the posteromedial aspect of the left lower lobe (series 3, image 42), unchanged. Given stability from 2018, no further evaluation necessary.
[2020-12-24 19:37] LABS: Troponin I < 0.01 ng/ml (0.00-0.034)
--- NOTE | 2020-12-24 20:04 | HMH.EDGENADL ---
ED Disposition Clinical Impression: Esophagitis Disposition: Home, Self-Care Condition on Discharge: Fair Instructions: DI for Esophagitis Additional Instructions: Patient's labs including CBC CMP and troponin x2 are essentially within normal limits; however CT of the abdomen and pelvis shows the following: circumferential soft tissue density has developed at the distal esophagus with narrowing of the esophageal lumen with some infiltration of the surrounding mediastinal fat. This is incompletely imaged. Chest CT with contrast suggested for further evaluation. There is some fluid density on both right and left paraesophageal region. CT of the chest with oral contrast shows the following moderate diffuse circumferential wall thickening of the entire thoracic esophagus with adjacent associated fat stranding and fluid most compatible with infectious/inflammatory esophagitis no contrast extravasation to suggest esophageal perforation I did call Dr. Johnson but was not successful in connecting with him I have advised patient to follow-up with Dr. Johnson and we will give patient copies of reports and also a CD copy patient is stable and does not need to be admitted today he does have prescriptions for Percocet to take care of his pain Referrals: Shakira Todd [Primary Care Provider] - Time of Disposition: 21:36 - Critical Care Critical Care Time: No Attestation: On 12/24/20, the high probability of a clinically significant, sudden or life threatening deterioration of the following system(s) required my full and direct attention, intervention and personal management. The time I documented below is in addition to time spent performing reported procedures but includes the following listed in this critical care notation. Medical Decision Making - Medical Records Medical records reviewed: Yes: I reviewed the patient's medical records. MR Comment: Patient's labs including CBC CMP and troponin x2 are essentially within normal limits; however CT of the abdomen and pelvis shows the following: circumferential soft tissue density has developed at the distal. esophagus with narrowing of the esophageal lumen with some. infiltration of the surrounding mediastinal fat. This is. incompletely imaged. Chest CT with contrast suggested for further. evaluation. There is some fluid density on both right and left. paraesophageal region. CT of the chest with oral contrast shows the following moderate diffuse circumferential wall thickening of the entire thoracic esophagus with adjacent associated fat stranding and fluid most compatible with infectious/inflammatory esophagitis no contrast extravasation to suggest esophageal perforation. I did call Dr. Johnson but was not successful in contract connecting with him I have advised patient to follow-up with Dr. Johnson and we will give patient copies of reports and also a CD copy patient is stable and does not need to be admitted today he does have prescriptions for Percocet to take care of his pain - Abdirahman Inquiry Pt receiving controlled substance: No Vital Signs: 12/24/20 15:46 12/24/20 17:00 Temperature 97.8 F Temperature Source Oral Pulse Rate 64 Pulse Rate [Right] 63 Respiratory Rate 18 18 Blood Pressure 123/72 Blood Pressure [Right Arm] 145/92 H Blood Pressure Mean [Right Arm] 109 02 Sat by Pulse Oximetry 98 97 Oxygen Delivery Method Room Air - Lab Data Lab Results 12/24/20 15:49: WBC 8.0, RBC 5.33, Hgb 16.4, Hct 46.2, MCV 86.7, MCH 30.7, MCHC 35.4, RDW 13.8, Plt Count 208, MPV 7.8, Neut % (Auto) 54.9, Lymph % (Auto) 33.3, [place] % (Auto) 6.6, Eos % (Auto) 4.2, Baso % (Auto) 1.0, Neut # (Auto) 4.4, Lymph # (Auto) 2.7, [place] # (Auto) 0.5, Eos # (Auto) 0.3, Baso # (Auto) 0.1 12/24/20 15:49: Sodium 138, Potassium 3.9, Chloride 105, Carbon Dioxide 27, Anion Gap 9.9, BUN 17, Creatinine 1.10, Estimated Creat Clear 116, Estimated GFR 70, Est GFR ( Amer) 84, Glucose 110 H, Calcium 9.2, Total Biliru
--- NOTE | 2020-12-24 20:41 | PC.NURSE ---
speaking to dr. cox at this time.
--- NOTE | 2020-12-24 20:58 | PC.NURSE ---
calling [facility] at this time for possible transfer
--- NOTE | 2020-12-24 21:01 | PC.NURSE ---
Dr Rivera to return call.
--- NOTE | 2020-12-24 21:07 | PC.NURSE ---
Dr Blair speaking to [place].
[2020-12-24 22:33] VITALS: BP 126/70; PULSE 60; RESP 16; TEMP 36.6; O2SAT 98
== END 2020-12-24 22:00 | disposition home or self-care (01) ==
PROVIDERS: Emergency Provider Emergency Medicine; PCP Nurse Practitioner Family
DX: K21.00 Gastro-esophageal reflux disease with esophagitis, without bleeding (principal); I25.10 Atherosclerotic heart disease of native coronary artery without angina pectoris; E78.5 Hyperlipidemia, unspecified; I10 Essential (primary) hypertension; Z87.442 Personal history of urinary calculi; Z88.0 Allergy status to penicillin; Z88.2 Allergy status to sulfonamides; Z79.899 Other long term (current) drug therapy
CPT/HCPCS: 71260; 74176; 80053; 81001; 84484; 85025; 87086; 93005; 96374; 99283; Q9967

== ENCOUNTER 2021-05-03 07:00 | Outpatient (RCR) | payer OTHER, SELFPAY | END 2021-05-03 08:00 | disposition home or self-care (01) | LOC: PT.CARL 07:00 | PROVIDERS: Visit Provider Orthopaedic Surgery | DX: S16.1XXA Strain of muscle, fascia and tendon at neck level, initial encounter (principal); V89.2XXA Person injured in unspecified motor-vehicle accident, traffic, initial encounter | CPT/HCPCS: 20560; 97010; 97014; 97035; 97110; 97163; G0283 ==

== ENCOUNTER → 2021-06-03 10:45 | Outpatient (CLI) | payer BC, MEDICAID, SELFPAY ==
--- NOTE | 2021-06-03 10:45 | CT_ITS ---
PROCEDURE: CT ABDOMEN PELVIS WO CON CLINICAL INDICATION: back pain COMPARISON: CT CT ABDOMEN PELVIS W CON from 10/04/[address] ABDOMEN PELVIS WO CON from 12/24/2020 TECHNIQUE: Axial images obtained with sagittal and coronal reformats. All CT scans at the facility use one or more dose reduction, viz: automated exposure control, ma/kV adjustment per patient size (including targeted exams where dose is matched to indication, i.e. head), or iterative reconstruction technique. FINDINGS: LOWER THORAX: There is mild thickening of the esophagus. The diffuse thickening with infiltration of the mediastinal fat has improved. ABDOMEN & PELVIS: There is some heterogeneous areas of decreased attenuation within the liver consistent with fatty liver infiltration. Prior cholecystectomy. No focal liver lesion evident. There is splenomegaly at 15 cm. There is a focal area of decreased attenuation within the head of the pancreas at 6 mm not significantly changed. 3 mm nonobstructing stone is present in the mid polar region of the right kidney. There are 2 clusters of stones in the lower pole of the left kidney each measuring approximately 7 mm. No ureteral calculi. No hydronephrosis. There is a left renal artery stent No intestinal obstruction or free air. No evidence of appendicitis. Colonic diverticulosis is present in the transverse and descending colon. No evidence of diverticulitis. The prostate is enlarged at approximately 6 x 5 cm with some coarse calcification. 4 mm anterolisthesis L4 on L5. No acute bony anomaly. Anterior bridging osteophyte is present at the sacroiliac junction on the left anteriorly causing fusion anteriorly. IMPRESSION: 1. Improvement in the diffuse thickening of the distal esophagus and infiltration of the paraesophageal fat 2. Colonic diverticulosis. No evidence of diverticulitis. 3. Bilateral nephrolithiasis 4. No change in the small focal central area of decreased attenuation within the head of the pancreas nonspecific 5. Splenomegaly 6. Other nonacute findings as described above. Dictated by: Eddie Sparks MD 06/04/2021 11:45 Eddie Sparks MD in [place] 06/04/2021 11:45
== END ==
PROVIDERS: PCP Nurse Practitioner Family; Visit Provider Urology
DX: M54.9 Dorsalgia, unspecified (principal); N39.41 Urge incontinence
CPT/HCPCS: 74176

== ENCOUNTER 2021-07-28 18:34 | Emergency (ER) | payer BC, MEDICAID, SELFPAY ==
[2021-07-28 19:02] VITALS: BP 155/68; PULSE 64; RESP 17; TEMP 36.5; O2SAT 98; BMI 33.0
--- NOTE | 2021-07-28 19:29 | XR_ITS ---
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 ; Additional info: Smashed hand injury TECHNIQUE: Imaging protocol: XR Left hand. Views: 3 or more views. COMPARISON: No relevant prior studies available. FINDINGS: Bones/joints: No acute fracture. Scattered early to mild degenerative changes. No dislocation. Soft tissues: Unremarkable. IMPRESSION: No fracture. If pain persists, suggest splinting and follow up radiographs in 7-10 days.
[2021-07-28 20:00] VITALS: BP 152/88; PULSE 60; O2SAT 99
--- NOTE | 2021-07-28 20:57 | HMH.EDUPEXT ---
ED Disposition Clinical Impression: Sprain of hand, left Qualifiers: Encounter type: initial encounter Qualified Code(s): S63.92XA - Sprain of unspecified part of left wrist and hand, initial encounter Finger laceration Qualifiers: Encounter type: initial encounter Finger: ring finger Damage to nail status: without damage Foreign body presence: without foreign body Laterality: left Qualified Code(s): S61.215A - Laceration without foreign body of left ring finger without damage to nail, initial encounter Disposition: Home, Self-Care Condition on Discharge: Good Instructions: DI for Laceration Repair -- Simple Additional Instructions: sutures out 12 days and recheck if needed Prescriptions: cephALEXin [cephALEXin 500mg capsule*] 500 mg PO TID #30 cap Transmission Status: Pending to [id number] Referrals: Shakira Todd [Primary Care Provider] - - Critical Care Critical Care Time: No Attestation: On 07/28/21, the high probability of a clinically significant, sudden or life threatening deterioration of the following system(s) required my full and direct attention, intervention and personal management. The time I documented below is in addition to time spent performing reported procedures but includes the following listed in this critical care notation. Medical Decision Making - Medical Records Medical records reviewed: Yes: I reviewed the patient's medical records. - Abdirahman Inquiry Pt receiving controlled substance: No Vital Signs: 07/28/21 19:02 Temperature 97.7 F Temperature Source Oral Pulse Rate [Right Brachial] 64 Respiratory Rate 17 Blood Pressure [Right Arm] 155/68 H Blood Pressure Mean [Right Arm] 97 Blood Pressure Source [Right Arm] Automatic Cuff Blood Pressure Position [Right Arm] Sitting 02 Sat by Pulse Oximetry 98 Oxygen Delivery Method Room Air - Lab Data Lab results reviewed: Yes: I reviewed the patient's lab results. Orders (Tests/Meds): ED MEDICATIONS Discontinued Medications Generic Name Dose Route Start Last Admin Trade Name Freq PRN Reason Stop Dose Admin Cephalexin HCl 500 mg 07/28/21 21:28 Cephalexin 500mg Capsule PO 07/28/21 21:29 ONCE ONE - Radiology Data #1 Image(s): Hand Image Reviewed: Yes I have reviewed radiologist's interpretation Preliminary Findings: No Fracture Seen Medical Decision Narrative: tendon intact and neg xray and sutured and on abx - no def allergy noted Upper Extremity HPI - General Chief Complaint: Extremity Injury, Upper Stated Complaint: AO smashed left fingers driving posts Time Seen by Provider: 07/28/21 20:50 Mode of Arrival: Family Vehicle Source of Information: Patient, Medical Record Limitations: Physical Limitations Description of Symptoms (Recalled from ER Triage Doc. 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 vitals are wnl. difficulty with ROM with this hand. two open wounds to both 3rd and 4th digits. 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 injured lt hand with injury and lac MD complaint: injury to: left, hand Other Extremity Injury: Left: hand Other injuries: none Handedness: right Place: home Severity: moderate Context: direct blow, laceration Associated symptoms: denies other symptoms - Related Data Home Medications Medication Instructions Recorded Confirmed RX: Amlodipine Besylate 10 mg PO DAILY 06/02/18 06/06/21 [Amlodipine 10mg Tab] RX: Benazepril HCl 40 mg PO DAILY 06/02/18 06/06/21 RX: Tamsulosin HCl [Flomax 0.4mg 0.4 mg PO HS 06/02/18 06/06/21 capsule] RX: allopurinoL [Allopurinol 300mg 300 mg PO DAILY 06/02/18 06/06/21 tablet] RX: Aspirin [Low Dose Aspirin EC] 81 mg PO DAILY 09/19/19 06/06/21 RX: Clopidogrel Bisulfate [Plavix 75 mg PO QDAY 09/19/19 06/06/21 75mg Tab] RX: carvediloL [Carvedilol 6.25mg 6.25 mg PO BID 09/19/19 06/06/21 T
[2021-07-28 21:00] VITALS: BP 142/58; PULSE 70; RESP 18; O2SAT 97
[2021-07-28 21:58] VITALS: BP 152/91; PULSE 66; RESP 16; TEMP 36.6; O2SAT 97
== END 2021-07-28 22:04 | disposition home or self-care (01) ==
PROVIDERS: Emergency Provider Emergency Medicine; PCP Nurse Practitioner Family
DX: S63.92XA Sprain of unspecified part of left wrist and hand, initial encounter (principal); S61.215A Laceration without foreign body of left ring finger without damage to nail, initial encounter; W22.09XA Striking against other stationary object, initial encounter; Y92.69 Other specified industrial and construction area as the place of occurrence of the external cause; Y99.0 Civilian activity done for income or pay; I10 Essential (primary) hypertension; E10.9 Type 1 diabetes mellitus without complications; E78.5 Hyperlipidemia, unspecified; I25.10 Atherosclerotic heart disease of native coronary artery without angina pectoris; Z88.0 Allergy status to penicillin; Z88.2 Allergy status to sulfonamides
CPT/HCPCS: 12002; 73130; 99283

== ENCOUNTER 2021-08-12 18:00 | Emergency (ER) | payer BC, MEDICAID, SELFPAY ==
[2021-08-12 19:17] VITALS: BP 134/60; PULSE 59; RESP 18; TEMP 36.8; O2SAT 99; BMI 33.7
--- NOTE | 2021-08-12 19:18 | XR_ITS ---
PROCEDURE INFORMATION: Exam: XR Left Finger(s) Exam date and time: 08/12/2021 7:18 PM Age: 56 years old Clinical indication: Injury or trauma; Left; Little finger; Injury date: 08/12/21; Injury details: Laceration to small finger TECHNIQUE: Imaging protocol: XR Left fingers. Views: Minimum 2 views. COMPARISON: CR XR HAND LT MIN 3V 07/28/2021 7:31 PM FINDINGS: Bones/joints: Degenerative changes of the interphalangeal joints and at the 1st [facility]. No acute fracture or dislocation. Soft tissues: Normal. IMPRESSION: No acute findings.
--- NOTE | 2021-08-12 19:46 | HMH.EDGENADL ---
ED Disposition Clinical Impression: Finger laceration Qualifiers: Encounter type: initial encounter Finger: little finger Damage to nail status: without damage Foreign body presence: without foreign body Laterality: left Qualified Code(s): S61.217A - Laceration without foreign body of left little finger without damage to nail, initial encounter Sprain of finger of left hand Qualifiers: Encounter type: initial encounter Finger: little finger Sprain of finger site: unspecified site Qualified Code(s): S63.617A - Unspecified sprain of left little finger, initial encounter Disposition: Home, Self-Care Condition on Discharge: Good Instructions: DI for Laceration Repair Prescriptions: cephALEXin [cephALEXin 500mg capsule*] 500 mg PO QID #20 cap Transmission Status: Received by [id number] Referrals: Shakira Todd [Primary Care Provider] - Time of Disposition: 20:05 - Critical Care Critical Care Time: No Attestation: On 08/12/21, the high probability of a clinically significant, sudden or life threatening deterioration of the following system(s) required my full and direct attention, intervention and personal management. The time I documented below is in addition to time spent performing reported procedures but includes the following listed in this critical care notation. Medical Decision Making - Medical Records Medical records reviewed: Yes: I reviewed the patient's medical records. - Abdirahman Inquiry Pt receiving controlled substance: No Vital Signs: 08/12/21 19:17 Temperature 98.2 F Temperature Source Oral Pulse Rate [Left Radial] 59 L Respiratory Rate 18 Blood Pressure [Right Arm] 134/60 Blood Pressure Mean [Right Arm] 84 Blood Pressure Source [Right Arm] Automatic Cuff Blood Pressure Position [Right Arm] Sitting 02 Sat by Pulse Oximetry 99 Oxygen Delivery Method Room Air Orders (Tests/Meds): ED MEDICATIONS Discontinued Medications Generic Name Dose Route Start Last Admin Trade Name Freq PRN Reason Stop Dose Admin Lidocaine/Epinephrine 1 ml 08/12/21 18:48 08/12/21 19:21 Lidocaine 1% W/Epi 1:100,000 20ml Vial IM 08/12/21 18:49 1 dose ONCE ONE Administration ORDERS Category Date Time Status XR finger LT min 2V Stat Exams 08/12/21 19:18 Taken Medical Decision Narrative: In summary this is a 56-year-old [id number] male presenting to the emergency department with a laceration to the ulnar aspect of the left ankle finger. Patient clinically stable on arrival, however he does have a brisk active bleeding site from the laceration. Concern for arterial bleed. Tourniquet placed. Lidocaine with epinephrine injected into the laceration. Digital block performed with 1% lidocaine without epinephrine. Hemostasis achieved. Cleaned with warm water and Hibiclens. Laceration repaired with absorbable nonabsorbable sutures. Jrcvum-fe-itulj placed over the area of greatest bleeding. When tourniquet was removed, it was only a small ooze. Pressure applied. The laceration is lateral on the finger. Cannot exclude a tendon injury, sprain. Will obtain x-rays to assess for bony abnormality, like fracture. X-rays reassuring. No fracture identified. When the bandage was removed there was no active bleeding. Patient's tetanus was updated 2 weeks ago. Given 5 days of Keflex. X-rays show no definitive fracture. Placed into a finger splint. Given Ortho referral. Counseled on conservative management. Given return precautions. Stable for discharge. General Adult HPI - General Chief complaint: Wound/Laceration Stated complaint: cut L hand on metal 1700 Time Seen by Provider: 08/12/21 19:00 Mode of Arrival: Ambulatory Source of Information: Patient Limitations: No Limitations Description of Symptoms (Recalled from ER Triage Doc. by RN): left pinky laceration, pt states a strapped wrapped around his finger - History of Present Illness HPI narrative: 56-year-old male
[2021-08-12 20:55] VITALS: BP 132/60; PULSE 74; RESP 16; TEMP 36.7; O2SAT 98
== END 2021-08-12 20:57 | disposition home or self-care (01) ==
PROVIDERS: Emergency Provider Emergency Medicine; PCP Nurse Practitioner Family
DX: S61.217A Laceration without foreign body of left little finger without damage to nail, initial encounter (principal); S63.617A Unspecified sprain of left little finger, initial encounter; W23.0XXA Caught, crushed, jammed, or pinched between moving objects, initial encounter; Y92.89 Other specified places as the place of occurrence of the external cause; E10.9 Type 1 diabetes mellitus without complications; I25.10 Atherosclerotic heart disease of native coronary artery without angina pectoris; Z86.73 Personal history of transient ischemic attack (TIA), and cerebral infarction without residual deficits; E78.5 Hyperlipidemia, unspecified; I10 Essential (primary) hypertension; Z79.899 Other long term (current) drug therapy
CPT/HCPCS: 12002; 73140; 99282

== ENCOUNTER → 2021-10-17 07:20 | Outpatient (CLI) | payer BC, MEDICAID, SELFPAY ==
--- NOTE | 2021-10-17 07:21 | CA_ITS ---
APPROVED REPORT EXAM: Comprehensive 2D, Doppler, and color-flow Echocardiogram [employer] Leak Tester: Rola Rivera RVT Ht: 5 ft 10 in Wt: 236lbs BSA: 2.24 BP: 148/44 mmHg Indications: PRE-OP,ABN EKG,HX CVA,CAD,ASTHMA,DM,HTN,HLD 2D Dimensions LVOT 2.01 cm (M/F) 1.5-2.5 LA Volume 39.50 mL LA Volume Index 17.63 mL/m2 (M/F) 16-34 M-Mode Dimensions RVDd 2.42 cm (0.9-2.6) LA Diam 4.43 cm (1.9-4.0) LVDd 5.18 cm (3.5-5.7) Ao Diam 2.62 cm (2.0-3.7) LVDs 3.44 cm (3.5-5.7) IVSd 1.06 cm (0.6-1.1) PWd 1.23 cm (0.6-1.1) EF (Teich) 62.00% FS 33.60% EDV (Teich) 128.40 mL TAPSE 2.21 (<1.7) ESV (Teich) 48.80 mL LV Diastology E Decel Time 170.00 (160-240 msec) E/A Ratio 1.5 MED E' 7.10 (< 7 cm/sec) E'/MED E' Ratio 17.99 (>14) LAT E' 10.00 (<10 cm/sec) E/LAT E' Ratio 12.77 (>14) Aortic Valve AO Peak GR. 5.60 mmHg Mitral Valve MV E Max Ori. 128.00 (40-130 cm/s) MV A Velocity 83.00 (40-130 cm/s) E/A Ratio 1.54 MV Decel. Time 170.00 (160-240 ms) MV PHT 50.00 ms Pulmonary Valve PV Peak Velocity 99.00 (50-150 cm/s) Tricuspid Valve TR P. Velocity 228.00 cm/s RAP Estimate 10.00 mmHg RVSP 30.80 mmHg Left Ventricle Left atrium is mildly enlarged, left ventricle is normal size, mild concentric left ventricular hypertrophy, visually estimated ejection fraction 55% with no regional wall motion abnormality, diastolic parameters are inconclusive. Right Ventricle Right atrium and right ventricle mildly enlarged with normal contractility. Aortic Valve Aortic valve is minimally thickened and fibrosed, there is no aortic stenosis or aortic insufficiency. Mitral Valve Mitral valve is grossly normal, there is trace mitral regurgitation. Tricuspid Valve Tricuspid grossly normal, there is trace tricuspid regurgitation, tricuspid regurgitation jet velocity is inadequate for calculation of the right ventricular systolic pressure. Pulmonic Valve Pulmonic valve is poorly visualized. Great Vessels Aortic root is normal size. Inferior vena cava is normal size with normal inspiratory collapse. Pericardium No significant pericardial effusion. Conclusion 1. Mild biatrial alignment, normal left ventricular size, mild concentric left ventricular hypertrophy, visually estimated ejection fraction 55% with no regional wall motion abnormality, diastolic parameters are inconclusive in the study. 2. Mildly enlarged right ventricle with normal contractility. 3. Trace mitral and tricuspid regurgitation. 4. No significant pericardial effusion noted. 5. Inferior vena cava normal size with normal inspiratory collapse. Electronically signed by : Satya Mcclellan MD 10/18/2021 14:42:34
== END ==
PROVIDERS: PCP Nurse Practitioner Family; Visit Provider Physician Assistant
DX: Z01.810 Encounter for preprocedural cardiovascular examination (principal); I25.10 Atherosclerotic heart disease of native coronary artery without angina pectoris; I10 Essential (primary) hypertension; I70.1 Atherosclerosis of renal artery; J45.909 Unspecified asthma, uncomplicated; R94.31 Abnormal electrocardiogram [ECG] [EKG]; Z86.73 Personal history of transient ischemic attack (TIA), and cerebral infarction without residual deficits
CPT/HCPCS: 93306

== ENCOUNTER 2022-03-17 19:02 | Emergency (ER) | payer BC, MEDICAID, SELFPAY ==
[2022-03-17 19:04] VITALS: BP 153/68; PULSE 71; RESP 17; TEMP 36.9; O2SAT 99; BMI 32.3
--- NOTE | 2022-03-17 19:28 | HMH.EDGENADL ---
ED Disposition Clinical Impression: Diverticulitis Disposition: Home, Self-Care Condition on Discharge: Good Prescriptions: Amoxicillin/Potassium Clav [Amox-Clav 875-125 mg Tablet] 1 tab PO BID #14 tab Transmission Status: Pending to [id number] Referrals: Shakira Todd [Primary Care Provider] - - Critical Care Critical Care Time: No Attestation: On , the high probability of a clinically significant, sudden or life threatening deterioration of the following system(s) required my full and direct attention, intervention and personal management. The time I documented below is in addition to time spent performing reported procedures but includes the following listed in this critical care notation. Medical Decision Making - Abdirahman Inquiry Pt receiving controlled substance: No Vital Signs: 03/17/22 19:04 Temperature 98.5 F Temperature Source Oral Pulse Rate [Right] 71 Respiratory Rate 17 Blood Pressure [Right Arm] 153/68 H Blood Pressure Mean [Right Arm] 96 Blood Pressure Source [Right Arm] Automatic Cuff 02 Sat by Pulse Oximetry 99 Oxygen Delivery Method Room Air - Lab Data Lab Results 03/17/22 19:31: WBC 13.1 H, RBC 4.68, Hgb 14.7, Hct 42.8, MCV 91.5, MCH 31.4 H, MCHC 34.3, RDW 14.1, Plt Count 189, MPV 7.7, Neut % (Auto) 72.2, Lymph % (Auto) 17.8, Runnels % (Auto) 6.5, Eos % (Auto) 2.8, Baso % (Auto) 0.6, Neut # (Auto) 9.4 H, Lymph # (Auto) 2.3, Runnels # (Auto) 0.9, Eos # (Auto) 0.4, Baso # (Auto) 0.1 03/17/22 19:31: Sodium 141, Potassium 4.1, Chloride 106, Carbon Dioxide 28, Anion Gap 11.1, BUN 21 H, Creatinine 1.20, Estimated GFR 63, Est GFR ( Amer) 76, Glucose 145 H, Calcium 9.6, Magnesium 1.9, Total Bilirubin 0.5, AST 27, ALT 22, Alkaline Phosphatase 82, Total Protein 7.2, Albumin 4.0, Globulin 3.2, Albumin/Globulin Ratio 1.3, Lipase 113 03/17/22 20:10: Urine Color Straw, Urine Appearance Clear, Urine pH 6.0, Ur Specific Fabens 1.025, Urine Protein Negative, Urine Glucose (UA) Negative, Urine Ketones Negative, Urine Blood Negative, Urine Nitrate Negative, Urine Bilirubin Negative, Urine Urobilinogen 1.0, Ur Leukocyte Esterase Negative, Urine RBC None, Urine WBC None, Ur Squamous Epith Cells Occasional, Urine Bacteria None Result diagrams: 03/17/22 19:31 03/17/22 19:31 Orders (Tests/Meds): ED MEDICATIONS Discontinued Medications Generic Name Dose Route Start Last Admin Trade Name Emely PRN Reason Stop Dose Admin Iopamidol 75 ml 03/17/22 20:59 03/17/22 21:00 Iopamidol-370 (76%);100ml Bottle IV 03/17/22 21:00 75 ml ONCE ONE Administration Sodium Chloride 10 ml 03/17/22 20:59 03/17/22 21:00 Sodium Chloride 0.9% 10ml Syr (Rad Only) IV 03/17/22 21:00 10 ml ONCE ONE Administration Medical Decision Narrative: In review this is a 57-year-old male who presents with suprapubic pain. Hemodynamically stable and nontoxic-appearing. Physical examination is most pertinent for tenderness in the lower abdomen worse in the suprapubic region. With his history of diverticulitis we will get a CT scan to evaluate this as well as laboratory studies but will also check his urine to evaluate for any UTI. His urine was negative. He did have a leukocytosis and on his CT scan had a early findings of diverticulitis. Due to this I placed him on a course of Augmentin and he will follow-up with his PCP. Return precautions given. Stable for discharge. General Adult HPI - General Stated complaint: lower abd pain Time Seen by Provider: 03/17/22 19:27 - History of Present Illness HPI narrative: Patient is a 57-year-old male with a history of diverticulosis who presents with suprapubic pain. He states that over the last couple days is gotten progressively worse. He says he feels like he has a fullness in his bladder. He also noted that there was a time where he felt like he had a little bit of fevers but denies any chills. Pain does not radiate from that area but he locates
--- NOTE | 2022-03-17 19:35 | CT_ITS ---
PROCEDURE INFORMATION: Exam: CT Abdomen And Pelvis With Contrast Exam date and time: 03/17/2022 8:50 PM Age: 57 years old Clinical indication: Abdominal pain; Generalized; Additional info: Concern for diverticulitis TECHNIQUE: Imaging protocol: Computed tomography of the abdomen and pelvis with contrast. Radiation optimization: All CT scans at this facility use at least one of these dose optimization techniques: automated exposure control; mA and/or kV adjustment per patient size (includes targeted exams where dose is matched to clinical indication); or iterative reconstruction. Contrast material: ISOVUE; Contrast volume: 75 ml; Contrast route: IV; COMPARISON: CT ABDOMEN PELVIS WO CON 06/03/2021 10:46 AM FINDINGS: Liver: Possible hepatic steatosis. Gallbladder and bile ducts: Gallbladder is absent. Pancreas: Normal. No ductal dilation. Spleen: Normal. No splenomegaly. Adrenal glands: Normal. No mass. Kidneys and ureters: Nonobstructing bilateral nephrolithiasis. Duplex right kidney. Stomach and bowel: Moderate to severe sigmoid diverticulosis. There is edema and free fluid surrounding at least 2 sigmoid diverticula. Severe colonic diverticulosis. Appendix: Unremarkable appendix. Intraperitoneal space: Unremarkable. No free air. No significant fluid collection. Vasculature: Left renal arterial stent. The arteries demonstrate mild atherosclerotic disease. Lymph nodes: Unremarkable. No enlarged lymph nodes. Urinary bladder: Unremarkable as visualized. Reproductive: Moderate to marked prostate enlargement. Bones/joints: The lumbar spine demonstrates mild degenerative changes at multiple levels. Soft tissues: Unremarkable. IMPRESSION: 1. Moderate to severe sigmoid diverticulosis. There is edema and free fluid surrounding at least 2 sigmoid diverticula. This is most likely acute diverticulitis without abscess, less likely colitis. 2. Nonobstructing bilateral nephrolithiasis. 3. Moderate to marked prostate enlargement. If not recently performed, consider follow-up prostate malignancy screening.
[2022-03-17 19:46] LABS: Basophils # 0.1 K/mm3 (0-0.2); Basophils % 0.6 % (0.1-2.0); Eosinophils # 0.4 K/mm3 (0.0-0.4); Eosinophils % 2.8 % (0.1-12.0); Hematocrit 42.8 % (42.0-52.0); Hemoglobin 14.7 g/dL (14.1-18.0); Lymphocytes # 2.3 K/mm3 (0.7-4.5); Lymphocytes % 17.8 % (10-50); Mean Corpuscular HGB Conc 34.3 g/dL (31.8-35.4); Mean Corpuscular Hemoglobin 31.4 pg (27.0-31.2); Mean Corpuscular Volume 91.5 fl (80-94); Mean Platelet Volume 7.7 fl (7.4-10.4); Monocytes # 0.9 K/mm3 (0.1-1.0); Monocytes % 6.5 % (1.7-9.3); Neutrophils # 9.4 K/mm3 (1.8-7.8); Neutrophils % 72.2 % (37.0-80.0); Platelet Count 189 K/mm3 (142-424); Red Blood Count 4.68 M/mm3 (4.60-6.20); Red Cell Distribution Width 14.1 % (11.5-17.5); White Blood Count 13.1 K/mm3 (4.8-10.8)
[2022-03-17 19:51] LABS: Alanine Aminotransferase 22 U/L (12-78); Albumin/Globulin Ratio 1.3 (1.1-1.8); Alkaline Phosphatase 82 U/L (38-126); Anion Gap 11.1 mEq/L (5-15); Aspartate Amino Transferase 27 U/L (17-59); Bilirubin,Total 0.5 mg/dl (0.2-1.3); Blood Urea Nitrogen 21 mg/dl (9-20); Calcium 9.6 mg/dl (8.4-10.2); Carbon Dioxide 28 mmol/L (22.0-30.0); Chloride 106 mmol/L (98-107); Estimated Glomerular Filt Rate 63 ml/min (>60); GFR (African American) 76 ML/MIN (>60); Globulin 3.2 g/dL (1.3-3.2); Glucose 145 mg/dl (74-100); Lipase 113 U/L (23-300); Magnesium 1.9 mg/dl (1.6-2.3); Potassium 4.1 mmoL/L (3.5-5.1); Sodium 141 mmol/L (136-145); Total Protein,Serum 7.2 g/dl (6.3-8.2)
[2022-03-17 20:16] LABS: Microscopic, Urine URINE MICROSCOPIC (MICROSCOPIC)
[2022-03-17 21:00] LABS: Appearance,Urine CLEAR (Clear); Bilirubin,Urine Negative (Negative); Blood, Urine Negative (Negative); Color,Urine STRAW (Yellow); Glucose,Urine (UA) Negative (Negative); Ketones,Urine Negative (Negative); Leukocyte Esterase,Urine Negative (Negative); Nitrate,Urine Negative (Negative); Protein,Urine Negative (Negative); Specific Gravity, Urine 1.025 (1.005-1.030)
--- NOTE | 2022-03-17 21:08 | PC.NURSE ---
patient back in room from CT
[2022-03-17 21:33] LABS: Squamous Epithelial Cell,Urine Occasional #/hpf (0-5)
[2022-03-17 23:19] VITALS: BP 126/80; PULSE 88; RESP 19; TEMP 37; O2SAT 99
== END 2022-03-17 23:19 | disposition home or self-care (01) ==
PROVIDERS: Emergency Provider Student in an Organized Health Care Education/Training Program; PCP Nurse Practitioner Family
DX: K57.32 Diverticulitis of large intestine without perforation or abscess without bleeding (principal); Z79.82 Long term (current) use of aspirin; Z79.899 Other long term (current) drug therapy; Z88.2 Allergy status to sulfonamides; Z88.8 Allergy status to other drugs, medicaments and biological substances; I25.10 Atherosclerotic heart disease of native coronary artery without angina pectoris; E10.9 Type 1 diabetes mellitus without complications; E78.5 Hyperlipidemia, unspecified; I10 Essential (primary) hypertension; I65.29 Occlusion and stenosis of unspecified carotid artery; Z86.73 Personal history of transient ischemic attack (TIA), and cerebral infarction without residual deficits; N40.0 Benign prostatic hyperplasia without lower urinary tract symptoms
CPT/HCPCS: 74177; 80053; 81001; 83690; 83735; 85025; 99284; Q9967

== ENCOUNTER → 2022-03-27 10:07 | Outpatient (CLI) | payer BC, MEDICAID, SELFPAY ==
[2022-03-28 08:18] LABS: PSA, Free 2.59 ng/mL; Prostate Specific Ag 10.4 ng/mL (0.0-4.0)
== END ==
PROVIDERS: PCP Nurse Practitioner Family; Visit Provider Urology
DX: R97.20 Elevated prostate specific antigen [PSA] (principal)
CPT/HCPCS: 36415; 84153; 84154

== ENCOUNTER 2023-04-01 22:23 | Observation (INO) | payer BC, SELFPAY ==
[2023-04-01 22:25] VITALS: BP 139/101; PULSE 62; RESP 20; TEMP 36.6; O2SAT 98; BMI 34.1
--- NOTE | 2023-04-01 22:41 | ECG_ITS ---
APPROVED REPORT Exam: Resting ECG HR:117 bpm ECG Measurements Heart Rate 117 AXES QRSd 78 QRS 105 QT 280 T -42 QTc 349 Conclusion ATRIAL FIBRILLATION WITH RAPID VENTRICULAR RESPONSE RIGHT AXIS DEVIATION [QRS AXIS > 100] POSSIBLE RIGHT VENTRICULAR CONDUCTION DELAY [RSR (QR) IN V1/V2] ST DEVIATION AND MODERATE T-WAVE ABNORMALITY, CONSIDER INFERIOR ISCHEMIA [-0.1+ mV T-WAVE IN II/aVF] ABNORMAL ECG UNCONFIRMED REPORT Electronically signed by : Randell Fang MD 04/02/2023 13:51:30
[2023-04-01 22:52] VITALS: BP 133/98; PULSE 124; RESP 17; O2SAT 97
--- NOTE | 2023-04-01 23:07 | CT_ITS ---
PROCEDURE INFORMATION: Exam: CT Abdomen And Pelvis With Contrast Exam date and time: 04/01/2023 11:51 PM Age: 58 years old Clinical indication: Abdominal pain; Epigastric; Prior surgery; Surgery date: <1 month; Surgery type: Prostate surgery March 13. ; Additional info: Chest pain, epigastric pain, SOA TECHNIQUE: Imaging protocol: Computed tomography of the abdomen and pelvis with contrast. Radiation optimization: All CT scans at this facility use at least one of these dose optimization techniques: automated exposure control; mA and/or kV adjustment per patient size (includes targeted exams where dose is matched to clinical indication); or iterative reconstruction. Contrast material: ISOVUE; Contrast volume: 75 ml; Contrast route: IV; REPORTING DATA: Count of CT and Cardiac NM exams in prior 12 months: This patient has received 0 known CTs and 0 known cardiac nuclear medicine studies in the 12 months prior to the current study. COMPARISON: CT ABDOMEN PELVIS W CON 03/17/2022 8:50 PM FINDINGS: Liver: Normal. No mass. Gallbladder and bile ducts: Postsurgical changes of cholecystectomy. Pancreas: Normal. No ductal dilation. Spleen: Normal. No splenomegaly. Adrenal glands: Normal. No mass. Kidneys and ureters: Bilateral nonobstructing nephrolithiasis measuring up to 5 mm on the right and 4 mm on the left. Stomach and bowel: Severe colonic diverticulosis without evidence of acute diverticulitis. Appendix: No evidence of appendicitis. Intraperitoneal space: Unremarkable. No free air. No significant fluid collection. Vasculature: Stent of the left renal artery origin. Mild atherosclerotic changes of the abdominal aorta and iliac arteries without aneurysmal dilatation. Lymph nodes: Mildly prominent inguinal lymph nodes. Urinary bladder: Moderate circumferential wall thickening of the urinary bladder with perivesicular fat stranding. Postprocedural changes of recent urinary bladder catheterization with a Mesa catheter in appropriate position. Reproductive: Prostatectomy. Bones/joints: Unremarkable. No acute fracture. Soft tissues: 4.8 x 9 x 7 cm rim enhancing fluid collection within the mons pubis subcutaneous soft tissues containing a few punctate foci of air with moderate surrounding inflammatory fat stranding. This collection appears to communicate with an additional 1.3 x 8.2 x 2.9 cm extraperitoneal rim enhancing fluid collection within the left perivesical space. Bilateral fat containing inguinal hernias. Tiny fat containin umbilical hernia. IMPRESSION: 1. 4.8 x 9 x 7 cm abscess within the mons pubis subcutaneous soft tissues. This collection appears to communicate with an additional 1.3 x 8.2 x 2.9 cm abscess within the extraperitoneal left perivesicular space. 2. Moderate circumferential urinary bladder wall thickening with perivesicular fat stranding, findings suggestive of cystitis. Postprocedural changes of recent Mesa catheterization with Mesa catheter in appropriate position. 3. Severe colonic diverticulosis without evidence of acute diverticulitis. 4. Bilateral nonobstructing nephrolithiasis.
--- NOTE | 2023-04-01 23:07 | CT_ITS ---
PROCEDURE INFORMATION: Exam: CTA Chest With Contrast Exam date and time: 04/01/2023 11:51 PM Age: 58 years old Clinical indication: Shortness of breath; Sternal or substernal pain; Patient HX: Recent prostate surgery; Additional info: Chest pain, epigastric pain, SOA TECHNIQUE: Imaging protocol: Computed tomographic angiography of the chest with contrast. Exam focused on the arteries. 3D rendering (Not supervised by radiologist): MIP and/or 3D reconstructed images were created by the technologist. Radiation optimization: All CT scans at this facility use at least one of these dose optimization techniques: automated exposure control; mA and/or kV adjustment per patient size (includes targeted exams where dose is matched to clinical indication); or iterative reconstruction. Contrast material: ISOVUE; Contrast volume: 75 ml; Contrast route: INTRAVENOUS (IV); REPORTING DATA: Count of CT and Cardiac NM exams in prior 12 months: This patient has received 0 known CTs and 0 known cardiac nuclear medicine studies in the 12 months prior to the current study. COMPARISON: [facility] CT angio chest 06/08/2018 3:16 PM FINDINGS: Pulmonary arteries: Normal. No pulmonary emboli. Aorta: Minimal atherosclerotic changes of the thoracic aorta without aneurysmal dilatation. Renal arteries: Stent at the left renal artery origin. Lungs: Minimal atelectasis.. No consolidation. No masses. Stable pulmonary nodules. No new suspicious pulmonary nodules identified. Pleural spaces: Small right and minimal left pleural effusions. No pneumothorax. Heart: Unremarkable. No cardiomegaly. No pericardial effusion. Mediastinal space: Redemonstration of diffuse circumferential esophageal wall thickening. Stable 2 cm bilobed cystic structure within the anterior mediastinal fat. Lymph nodes: Stable small calcified left hilar lymph node. Mildly enlarged prevascular right lower paratracheal and subcarinal lymph nodes measuring up to 1.4 cm in short axis. Liver: Hepatomegaly. Mild hepatomegaly. Gallbladder and bile ducts: Postsurgical changes of cholecystectomy. Spleen: Splenomegaly. Kidneys and ureters: 4 mm nonobstructing nephrolith within the right kidney superior pole. Stomach and bowel: Colonic diverticulosis without evidence of acute diverticulitis. Bones/joints: Postsurgical changes of C6-C7 ACDF. Degenerative changes of the spine and shoulders. Soft tissues: Unremarkable. IMPRESSION: 1. No pulmonary artery embolism. 2. Small right and minimal left pleural effusions. 3. Cardiomegaly. 4. Nonspecific enlarged mediastinal lymph nodes measuring up to 1.4 cm in short axis. 5. Redemonstrated diffuse circumferential esophageal wall thickening consistent with esophagitis.
[2023-04-01 23:20] VITALS: BP 146/89; PULSE 146; RESP 19; O2SAT 97
[2023-04-01 23:22] LABS: Basophils % 0.4 % (0.1-2.0); Eosinophils # 0.6 K/mm3 (0.0-0.4); Eosinophils % 5.6 % (0.1-12.0); Hematocrit 33.6 % (42.0-52.0); Hemoglobin 10.4 g/dL (14.1-18.0); Lymphocytes # 2.2 K/mm3 (0.7-4.5); Lymphocytes % 21.5 % (10-50); Mean Corpuscular HGB Conc 31.1 g/dL (31.8-35.4); Mean Corpuscular Volume 90.2 fl (80-94); Mean Platelet Volume 7.4 fl (7.4-10.4); Monocytes # 0.4 K/mm3 (0.1-1.0); Neutrophils # 6.9 K/mm3 (1.8-7.8); Neutrophils % 68.5 % (37.0-80.0); Platelet Count 374 K/mm3 (142-424); Red Blood Count 3.72 M/mm3 (4.60-6.20); Red Cell Distribution Width 16.2 % (11.5-17.5); White Blood Count 10.1 K/mm3 (4.8-10.8)
[2023-04-01 23:28] LABS: Alanine Aminotransferase 23 U/L (12-78); Albumin/Globulin Ratio 1.1 (1.1-1.8); Alkaline Phosphatase 89 U/L (38-126); Anion Gap 15.1 mEq/L (5-15); Aspartate Amino Transferase 28 U/L (17-59); Bilirubin,Total 0.5 mg/dl (0.2-1.3); Blood Urea Nitrogen 16 mg/dl (9-20); Calcium 9.1 mg/dl (8.4-10.2); Carbon Dioxide 26 mmol/L (22.0-30.0); Chloride 106 mmol/L (98-107); Creatinine Clearance Estimated 104 mL/min (50-200); Estimated Glomerular Filt Rate 62 ml/min (>60); GFR (African American) 76 ML/MIN (>60); Globulin 3.5 g/dL (1.3-3.2); Glucose 157 mg/dl (74-100); Lipase 84 U/L (23-300); Potassium 4.1 mmoL/L (3.5-5.1); Sodium 143 mmol/L (136-145); Total Protein,Serum 7.5 g/dl (6.3-8.2)
[2023-04-01 23:29] LABS: Activated Partial Thrombo Time 27.5 seconds (22.8-30.6); INR 1.06 (0.9-1.1); Prothrombin Time 11.4 seconds (10.1-12.5)
[2023-04-01 23:42] LABS: Troponin I < 0.01 ng/ml (0.00-0.034)
[2023-04-01 23:43] LABS: Lactic Acid 1.4 mmol/L (0.7-2.1)
[2023-04-01 23:46] LABS: T4 (Thyroxine) 8.2 ug/dl (5.53-11.0)
--- NOTE | 2023-04-01 23:55 | HMH.EDGENADL ---
Discharge Plan Disposition Condition: Fair Chief Complaint: Abdominal Pain Prescriptions Prescriptions: No Action methocarbamol 750 mg tablet 750 mg PO Q6 cephalexin 500 mg capsule 500 mg PO BID oxybutynin chloride 5 mg tablet 5 mg PO DAILY metoprolol tartrate 25 mg Tablet 25 mg PO DAILY allopurinol 300 MG tablet 300 mg PO DAILY benazepril 40 MG tablet 40 mg PO DAILY clopidogrel 75 MG tablet 75 mg PO QDAY aspirin 81 MG tablet,delayed release (DR/EC) 81 mg PO DAILY Referrals Follow up/Referrals: Shakira Todd [Primary Care Provider] - See instructions Clinical Impressions Clinical Impression: Atrial fibrillation with RVR, Esophagitis, Post-operative wound abscess Instructions Patient Instructions: DI for Acute Abdominal Pain Discharge ED Provider: Yelena Laguna General Adult HPI General Chief complaint: Abdominal Pain Stated complaint: abd pain, SOA Time Seen by Provider: 04/01/23 23:00 Mode of Arrival: Ambulatory Source of Information: Patient Limitations: No Limitations Description of Symptoms (Recalled from ER Triage Doc. by RN): pt reports abdominal pain that started this past week the pt states that the pain is under the diaphram. it is more intense when he lays flat and he is unable to take a deep breath. Pt reports he was diagnosed with afib in october after a kidney stone in the right side. the pt states that he was hospitalized january 11 for a prostate surgry where the pt reports they gutted it . the pt is having pain at a 5/10 when sitting but 8/10 when laid carl at aprox 45 degrees. History of Present Illness HPI narrative: This patient is a 58-year-old male with a history of BPH status post surgery at on 03/13/2023 for prostatectomy, new A-fib with RVR postoperatively (on metoprolol, no AC), HTN, HLD, PAD, hypertensive heart disease, prior CVA and carotid stenting on Plavix, GERD, and nephrolithiasis requiring operative intervention in October of this year presenting for evaluation with concern for epigastric abdominal pain and shortness of breath. Patient reports that his symptoms started approximately 4 to 5 days ago. He states that it feels similar to problems that he has had with acid reflux, which have previously resolved with Pepcid and peppermints, however nothing is helping his symptoms at this time. He denies any fevers, chills, nausea, vomiting, changes in bowel movements, or other concerns. He has a Mesa catheter in place, and he notes good urine output without any issues. On review of systems, however, he does admit to intermittent left-sided chest pain as well as what he describes as right kidney pain a few days ago. Of note, on medical record review from charts, patient's operation was complicated by unstable A fib with RVR and hemorrhagic shock requiring pressors and ICU admission. Pt notes he was supposed to start xarelto or eliquis for his afib, but has not started because of his recent operative intervention and hemorrhagic shock. Patient also is currently on Keflex, as he reports that he was diagnosed with a cellulitis of his arm at from the site which he had an arterial line. Of note, patient has not been taking his metoprolol as prescribed. Related Data Home Medications Medication Instructions Recorded Confirmed allopurinol 300 mg tablet 300 mg PO DAILY Gout 06/02/18 04/01/23 benazepril 40 mg tablet 40 mg PO DAILY Hypertension 06/02/18 04/01/23 aspirin 81 mg tablet,delayed 81 mg PO DAILY CAD 09/19/19 04/01/23 release clopidogrel 75 mg tablet 75 mg PO QDAY Blood thinner 09/19/19 04/01/23 cephalexin 500 mg capsule 500 mg PO BID Infection 04/01/23 04/01/23 methocarbamol 750 mg tablet 750 mg PO Q6 Pain 04/01/23 04/01/23 metoprolol tartrate 25 mg tablet 25 mg PO DAILY High Blood Pressure 04/01/23 04/01/23 oxybutynin chloride 5 mg tablet 5 mg PO DAILY bladder 04/01/23 04/01/23 Allergies Allergy/AdvReac Type Severity Reac
[2023-04-01 23:58] LABS: Thyroid Stimulating Hormone 3.15 uIU/mL (0.465-4.68)
[2023-04-02] VITALS (14 sets, daily range): BP systolic 129–148; BP diastolic 72–94; PULSE 75–136; RESP 16–22; TEMP 36.5–36.9; O2SAT 95–99; BMI 33.6
--- NOTE | 2023-04-02 00:43 | ECG_ITS ---
APPROVED REPORT Exam: Resting ECG HR:107 bpm ECG Measurements Heart Rate 107 AXES QRSd 76 QRS 107 QT 318 T -26 QTc 380 Conclusion ATRIAL FIBRILLATION Interspersed junctional beats noted ABNORMAL ECG UNCONFIRMED REPORT Electronically signed by : Randell Fang MD 04/02/2023 13:51:03
--- NOTE | 2023-04-02 00:53 | PC.NURSE ---
contacting [facility] for possible transfer
--- NOTE | 2023-04-02 00:55 | PC.NURSE ---
on phone with [facility]
[2023-04-02 01:09] LABS: Microscopic, Urine URINE MICROSCOPIC (MICROSCOPIC)
[2023-04-02 01:12] LABS: Bilirubin,Urine Negative (Negative); Blood, Urine 2+ (Negative); Color,Urine YELLOW (Yellow); Glucose,Urine (UA) Negative (Negative); Ketones,Urine Negative (Negative); Leukocyte Esterase,Urine 1+ (Negative); Nitrate,Urine POSITIVE (Negative); PH,Urine 6.5 (5.0-8.5); Protein,Urine 1+ (Negative); Urobilinogen,Urine 0.2 EU/dl (0.2)
[2023-04-02 01:13] LABS: Appearance,Urine Slightly Cloudy (Clear)
--- NOTE | 2023-04-02 01:20 | PC.NURSE ---
on phone with hospitalist . assistant warehouse manager notified of admission
--- NOTE | 2023-04-02 01:21 | PC.NURSE ---
PATIENT ADMITTED TO 207 TO SERVICE OF HOSPITALIST WITH DX OF A FIB WITH RVR, ABSCESS TO ABD.
--- NOTE | 2023-04-02 01:26 | PC.NURSE ---
on phone with carmen
--- NOTE | 2023-04-02 01:27 | PC.NURSE ---
ROOM CHANGED TO 219 STEPDOWN, CARDIZEM AND HEPARIN GTT TO BE STARTED.
[2023-04-02 01:36] LABS: Bacteria,Urine 1+ /lpf
--- NOTE | 2023-04-02 01:54 | EXP.HP ---
History of Present Illness *Admission Date: 04/02/23 *Reason for visit:: a fib rvr *History of present illness: 58 year old male presented to the ED for c/o sob and upper abd pain for the past five days. PMHX inculdes BPH status post surgery at on 03/13/2023 for prostatectomy, new A-fib with RVR postoperatively (on metoprolol, no AC), HTN, HLD, PAD, hypertensive heart disease, prior CVA and carotid stenting on Plavix, GERD, and nephrolithiasis requiring operative intervention in October of this year. He denies any fevers, nausea, vomiting, or diarrhea. He has a Mesa catheter in place. He c/o intermittent left-sided chest pain. The patient had a complicated stay at after his operation on 03/13. He was admitted to the ICU due to hemorrhagic shock and a fib with rvr. Since this happened the patient was not started on anticoagulation. The patient is currently on keflex as well for cellulitis from an arterial line during his ICU stay. The Pt's ED workup included lab work, CT imaging of abd and lungs, and EKGs. Upon arrival to the ED the pt has been in A fib RVR with a rate between 110-160. The patient has received additional IV and p.o metoprolol without improvement in heart rate. Dr. Laguna consulted Dr. Bee for further medical management. Dr. Bee recommended starting the patient on a diltiazem gtt and heparin gtt. He will be seen in the morning by cardiology for possible cardioversion and TTE. Dr. Laguna consulted the hospitalist team for further medical management of the patient. The patient's blood workup is unremarkable. His troponin is negative and has no leukocytosis. He does have nitrates and WBC in his urine. He was started on rocephin 1g daily. He will not have Mesa exchanged due to recent surgery and no urology being available at [facility]. His CT of his chest reveals left pleural effusion, cardiomegaly, and esophagitis. He was started on protonix and given Pepcid in the ED. His abdominal CT reveals postoperative subcutaneous abscesses, cystitis, and esophagitis. Please see their read for final interpretation. Dr. Laguna spoke with Dr. Mosquera and Dr. Garcia at . Both physicians refused transfer stating the pt is having a seroma instead of abscess and he is without fever or leukocystosis. The patient is to continue follow up with Dr. Garcia on 04/08/2023. Please see her note for further information regrading her attempted transfer.. Upon admission to the medical floor, the pt is hemodynamically stable with a HR in the 110. He denies any chest pain or palpations. He will remain NPO until cardiology rounds on him in the morning. Will continue to trend CBC and BMP daily. If pt's develops fever or leukocytosis, will be contacted again. [facility] Disclaimer: The information contained in this section may have been updated after the patient was seen, as this information can be updated by other users. 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
--- NOTE | 2023-04-02 02:09 | PC.NURSE ---
spoke to Seble byrne verified that Heparin and Diltiazem together .
--- NOTE | 2023-04-02 02:12 | PC.NURSE ---
report called to Bess JACKSON
[2023-04-02 02:26] LABS: Magnesium 1.9 mg/dl (1.6-2.3)
--- NOTE | 2023-04-02 02:42 | PC.NURSE ---
Pt arrived to floor via stretcher @ 0647
[2023-04-02 02:44] LABS: Troponin I < 0.01 ng/ml (0.00-0.034)
[2023-04-02 02:50] LABS: Direct LDL Cholesterol 97.69 mg/dL (100-129)
[2023-04-02 02:51] LABS: Chol/HDL Ratio 8.4 (1-3.5); Cholesterol 151 mg/dl (140-200); HDL Cholesterol 18 mg/dl (40-60); Triglycerides 269 mg/dl (30-150); VLDL Cholesterol 54 mg/dL (0-40)
[2023-04-02 06:11] LABS: Chloride 109 mmol/L (98-107); Potassium 4.6 mmoL/L (3.5-5.1); Sodium 139 mmol/L (136-145)
[2023-04-02 06:14] LABS: Anion Gap 14.6 mEq/L (5-15); Blood Urea Nitrogen 15 mg/dl (9-20); Calcium 8.9 mg/dl (8.4-10.2); Carbon Dioxide 20 mmol/L (22.0-30.0); Creatinine Clearance Estimated 112 mL/min (50-200); Estimated Glomerular Filt Rate 69 ml/min (>60); GFR (African American) 83 ML/MIN (>60); Glucose 100 mg/dl (74-100)
[2023-04-02 06:34] LABS: Troponin I < 0.01 ng/ml (0.00-0.034)
[2023-04-02 06:35] LABS: Basophils # 0.1 K/mm3 (0-0.2); Basophils % 0.9 % (0.1-2.0); Eosinophils # 0.5 K/mm3 (0.0-0.4); Eosinophils % 6.2 % (0.1-12.0); Hematocrit 31.2 % (42.0-52.0); Hemoglobin 9.5 g/dL (14.1-18.0); Lymphocytes # 2.3 K/mm3 (0.7-4.5); Lymphocytes % 28.1 % (10-50); Mean Corpuscular HGB Conc 30.4 g/dL (31.8-35.4); Mean Corpuscular Volume 92.1 fl (80-94); Mean Platelet Volume 7.5 fl (7.4-10.4); Monocytes # 0.4 K/mm3 (0.1-1.0); Monocytes % 4.4 % (1.7-9.3); Neutrophils % 60.4 % (37.0-80.0); Platelet Count 345 K/mm3 (142-424); Red Blood Count 3.39 M/mm3 (4.60-6.20); Red Cell Distribution Width 16.2 % (11.5-17.5); White Blood Count 8.2 K/mm3 (4.8-10.8)
--- NOTE | 2023-04-02 06:58 | PC.NURSE ---
Pt admitted this shift. Pt has been controlled a fib on tele since admission. Pt has no complaints. Denies SOA and chest pain. Mesa catheter in place draining cloudy/yellow urine. Cardizem gtt infusing @5mg/hr. Heparin gtt infusing @1400 units/hr.
--- NOTE | 2023-04-02 08:07 | HMH.PHAHEP ---
[facility] Heparin Dosing Demographic Data Admission date:: 04/02/23 Date: 04/02/23 Time: 08:08 Allergies Allergy/AdvReac Type Severity Reaction Status Date / Time amitriptyline Allergy Mild Unknown Verified 03/27/22 09:33 allergy reaction atorvastatin Allergy Mild Unknown Verified 03/27/22 09:33 allergy reaction duloxetine [From Cymbalta] Allergy Mild Unknown Verified 03/27/22 09:33 allergy reaction Sulfa (Sulfonamide Allergy Unknown Verified 03/27/22 09:33 Antibiotics) allergy reaction Height: 1.78 m Weight: 106.651 kg Indication Medication therapy:: Heparin Current Indications:: ATRIAL FIBRILLATION - MEDIUM DOSE PROTOCOL Current Active Problems (Updated 04/02/23 @ 02:27 by CAROL Hampton) UTI (urinary tract infection) (Acute) S/P prostatectomy (Acute) Atrial fibrillation with RVR (Acute) Esophagitis (Acute) Post-operative wound abscess (Acute) History of CVA (cerebrovascular accident) (Chronic) CAD (coronary artery disease) (Chronic) HLD (hyperlipidemia) (Chronic) HTN (hypertension) (Chronic) PAD (peripheral artery disease) (Chronic) CVA?: Yes Bleeding problem?: No Kidney disease?: No NH?: No Additional History:: HYPERTENSION, HYPERLIPIDEMIA, PERIPHERAL ARTERY DISEASE, CEREBROVASCULAR ACCIDENT, CAROTID STENTING Desired PTT range:: 50-75 seconds Labs Anticoagulation Lab Results:: 04/01/23 04/02/23 22:40 05:25 Hgb 10.4 L 9.5 L Hct 33.6 L 31.2 L Plt Count 374 345 Monitoring Dose Monitor 1: Date: 04/01/23 Time: 22:40 PTT Result:: BASELINE PTT = 27.5 SECONDS Infusion Rate:: HEPARIN DRIP INITIATED AT 1400 UNITS/HOUR = 28 ML/HOUR AND 5000 UNITS HEPARIN BOLUSED IV ONCE. Dose Monitor 2: Date: 04/02/23 Time: 08:13 PTT Result:: 35.8 SECONDS Infusion Rate:: 0845: INCREASE HEPARIN DRIP RATE TO 1800 UNITS/HOUR = 36 ML/HOUR AND BOLUS 4000 UNITS IV HEPARIN ONCE. CANDI STATES SHE WILL CHECK WITH DR SOTO TO SEE ABOUT CHANGING TO ORAL ANTICOAGULATION, HOLD CHANGES FOR NOW. 0900: CANDI STATES DR SOTO SAYS OK TO CHANGE RATE AND BOLUS BUT HE WILL ALSO CHECK WITH CARDIOLOGY FOR RECOMMENDATIONS. 0925: CANDI STATES CARDIOLOGY TO BE ENTERING ORAL ANTICOAGULATION AND TO DISCONTINUE HEPARIN DRIP. 0930: TAMIA FROM CARDIOLOGY ENTERED XARELTO/PLAVIX, HEPARIN DRIP STOPPED. Core Measures Is INR > or = 2 at discharge?: No Most Recent Labs:: Laboratory Results - last 24 hr 04/01/23 22:40: WBC 10.1, RBC 3.72 L, Hgb 10.4 L, Hct 33.6 L, MCV 90.2, MCH 28.0, MCHC 31.1 L, RDW 16.2, Plt Count 374, MPV 7.4, Neut % (Auto) 68.5, Lymph % (Auto) 21.5, [place] % (Auto) 4.0, Eos % (Auto) 5.6, Baso % (Auto) 0.4, Neut # (Auto) 6.9, Lymph # (Auto) 2.2, [place] # (Auto) 0.4, Eos # (Auto) 0.6 H, Baso # (Auto) 0.0, PT 11.4, INR 1.06, APTT 27.5, Sodium 143, Potassium 4.1, Chloride 106, Carbon Dioxide 26, Anion Gap 15.1 H, BUN 16, Creatinine 1.20, Estimated Creat Clear 104, Estimated GFR 62, Est GFR ( Amer) 76, Glucose 157 H, Lactate 1.4, Calcium 9.1, Magnesium 2.0, Total Bilirubin 0.5, AST 28, ALT 23, Alkaline Phosphatase 89, Troponin I < 0.01, Total Protein 7.5, Albumin 4.0, Globulin 3.5 H, Albumin/Globulin Ratio 1.1, Lipase 84, TSH 3.15, Thyroxine (T4) 8.2 04/02/23 01:00: Urine Color Yellow, Urine Appearance Slightly cloudy, Urine pH 6.5, Ur Specific [place] 1.020, Urine Protein 1+, Urine Glucose (UA) Negative, Urine Ketones Negative, Urine Blood 2+, Urine Nitrate Positive, Urine Bilirubin Negative, Urine Urobilinogen 0.2, Ur Leukocyte Esterase 1+ A, Urine RBC 5-10, Urine WBC 5-10, Urine Bacteria 1+ 04/02/23 01:57: Magnesium 1.9, Troponin I < 0.01, Triglycerides 269 H, Cholesterol 151, LDL Cholesterol Direct 97.69 L, VLDL Cholesterol 54 H, HDL Cholesterol 18 L, Cholesterol/HDL Ratio 8.4 H 04/02/23 05:25: WBC 8.2, RBC 3.39 L, Hgb 9.5 L, Hct 31.2 L, MCV 92.1, MCH 28.0, MCHC 30.4 L, RDW 16.2, Plt Count 345, MPV 7.5, Neut % (Auto) 60.4, Lymph % (
[2023-04-02 08:45] LABS: PTT Heparin (inpatient only) 35.8 Seconds (23.6-34.0)
--- NOTE | 2023-04-02 09:18 | EXP.CARD.CON ---
History of Present Illness History of Present Illness Consult date: 04/02/23 Requesting physician: Jamar Delgado Consult reason: atrial fibrillation Chief complaint: Atrial fibrillation with RVR History of present illness: Hospitalist note: 58 year old male presented to the ED for c/o sob and upper abd pain for the past five days. PMHX inculdes BPH status post surgery at on 03/13/2023 for prostatectomy, new A-fib with RVR postoperatively (on metoprolol, no AC), HTN, HLD, PAD, hypertensive heart disease, prior CVA and carotid stenting on Plavix, GERD, and nephrolithiasis requiring operative intervention in October of this year. He denies any fevers, nausea, vomiting, or diarrhea. He has a Mesa catheter in place. He c/o intermittent left-sided chest pain. The patient had a complicated stay at after his operation on 03/13. He was admitted to the ICU due to hemorrhagic shock and a fib with rvr. Since this happened the patient was not started on anticoagulation. The patient is currently on keflex as well for cellulitis from an arterial line during his ICU stay. The Pt's ED workup included lab work, CT imaging of abd and lungs, and EKGs. Upon arrival to the ED the pt has been in A fib RVR with a rate between 110-160. The patient has received additional IV and p.o metoprolol without improvement in heart rate. Dr. Laguna consulted Dr. Bee for further medical management. Dr. Bee recommended starting the patient on a diltiazem gtt and heparin gtt. He will be seen in the morning by cardiology for possible cardioversion and TTE. Dr. Laguna consulted the hospitalist team for further medical management of the patient. The patient's blood workup is unremarkable. His troponin is negative and has no leukocytosis. He does have nitrates and WBC in his urine. He was started on rocephin 1g daily. He will not have Mesa exchanged due to recent surgery and no urology being available at [facility]. His CT of his chest reveals left pleural effusion, cardiomegaly, and esophagitis. He was started on protonix and given Pepcid in the ED. His abdominal CT reveals postoperative subcutaneous abscesses, cystitis, and esophagitis. Please see their read for final interpretation. Dr. Laguna spoke with Dr. Mosquera and Dr. Garcia at . Both physicians refused transfer stating the pt is having a seroma instead of abscess and he is without fever or leukocystosis. The patient is to continue follow up with Dr. Garcia on 04/08/2023. Please see her note for further information regrading her attempted transfer.. Upon admission to the medical floor, the pt is hemodynamically stable with a HR in the 110. He denies any chest pain or palpations. He will remain NPO until cardiology rounds on him in the morning. Will continue to trend CBC and BMP daily. If pt's develops fever or leukocytosis, [facility] will be contacted again. Cardiology Note: 58-year-old white male with past medical history of recent diagnosis of paroxysmal atrial fibrillation after surgery, hypertensive heart disease, prior CVA, prior carotid stenting, renal artery stenosis, peripheral artery disease and coronary artery disease presented to emergency department with complaint of upper abdominal pain and worsening shortness of air x 5 days, see note above. Upon presentation patient was noted to be in A-fib RVR with a rate of 110-160. Patient was given additional dose of metoprolol without improvement in heart rate. Patient was started on diltiazem drip and admitted for further evaluation. This morning patient remains in A-fib but rate controlled with rates ranging from 70s to 90s. Denies chest pain. Reports mild shortness of air. Serial troponins negative. Patient has planned follow-up with cardiology and EP this month. Patient has not been on oral anticoagulation thus far due to postoperative complications and risk for bleeding. [facility] Disclaimer: The information contained in this section may have been updated after the patient
--- NOTE | 2023-04-02 09:25 | HMH.PHAINT1 ---
Pharmacy Intervention Comments: Medication history complete, verified all home medications with patient as well as fill history. - Nina Rodriguez, PharmD Candidate 2023
--- NOTE | 2023-04-02 10:35 | PC.NURSE ---
[address] alexander face to face that pt requests tylenol. new order: tylenol 650 mg po q6h prn mild-mod pain/fever.
--- NOTE | 2023-04-02 11:55 | PC.NURSE ---
pt linda joaquin dc at 1140
--- NOTE | 2023-04-02 12:40 | EXP.DC.SUM ---
General Admission date:: 04/02/23 Discharge date: 04/02/23 HPI HPI HPI: 58 year old male presented to the ED for c/o sob and upper abd pain for the past five days. PMHX inculdes BPH status post surgery at on 03/13/2023 for prostatectomy, new A-fib with RVR postoperatively (on metoprolol, no AC), HTN, HLD, PAD, hypertensive heart disease, prior CVA and carotid stenting on Plavix, GERD, and nephrolithiasis requiring operative intervention in October of this year. He denies any fevers, nausea, vomiting, or diarrhea. He has a Mesa catheter in place. He c/o intermittent left-sided chest pain. The patient had a complicated stay at after his operation on 03/13. He was admitted to the ICU due to hemorrhagic shock and a fib with rvr. Since this happened the patient was not started on anticoagulation. The patient is currently on keflex as well for cellulitis from an arterial line during his ICU stay. The Pt's ED workup included lab work, CT imaging of abd and lungs, and EKGs. Upon arrival to the ED the pt has been in A fib RVR with a rate between 110-160. The patient has received additional IV and p.o metoprolol without improvement in heart rate. Dr. Laguna consulted Dr. Bee for further medical management. Dr. Bee recommended starting the patient on a diltiazem gtt and heparin gtt. He will be seen in the morning by cardiology for possible cardioversion and TTE. Dr. Laguna consulted the hospitalist team for further medical management of the patient. The patient's blood workup is unremarkable. His troponin is negative and has no leukocytosis. He does have nitrates and WBC in his urine. He was started on rocephin 1g daily. He will not have Mesa exchanged due to recent surgery and no urology being available at [facility]. His CT of his chest reveals left pleural effusion, cardiomegaly, and esophagitis. He was started on protonix and given Pepcid in the ED. His abdominal CT reveals postoperative subcutaneous abscesses, cystitis, and esophagitis. Please see their read for final interpretation. Dr. Laguna spoke with Dr. Mosquera and Dr. Garcia at . Both physicians refused transfer stating the pt is having a seroma instead of abscess and he is without fever or leukocystosis. The patient is to continue follow up with Dr. Garcia on 04/08/2023. Please see her note for further information regrading her attempted transfer.. Upon admission to the medical floor, the pt is hemodynamically stable with a HR in the 110. He denies any chest pain or palpations. He will remain NPO until cardiology rounds on him in the morning. Will continue to trend CBC and BMP daily. If pt's develops fever or leukocytosis, will be contacted again. Hospital Course Hospital Course Hospital Course: Mr. Tyson is a 58-year-old male with history of paroxysmal A-fib who presented to the ER with abdominal discomfort. Found to be in A-fib with RVR. Admitted on diltiazem drip and heparin drip for further management. Cardiology was consulted. By morning his rate had improved. He is already established with cardiology at and has an appointment in the coming weeks for further management of his known paroxysmal A-fib. Stable to discharge home with adjustments to medications. Problems addressed as follows: Paroxysmal atrial fibrillation-Chadsvasc score 4 -Echo from dated 02/2023 shows an ejection fraction with varying from 45 to 60% in the setting of A-fib. Remained in A-fib after initiation of drip however rate is controlled. Cardiology was consulted. Recommend continuing metoprolol 25 mg daily and adding diltiazem to release 180 mg daily. Will discontinue heparin and diltiazem drip. Will initiate Xarelto 15 mg daily, dose due this evening. Recommend keeping follow-up with cardiology and EP in March. Stable to discharge home with good control of heart rate. Discontinue amlodipine for blood pressure with the initiation of his diltiazem. Coronary artery disease Peripheral
--- NOTE | 2023-04-03 13:31 | CARE MANAGER ---
Contacted patient related to hospital discharge. 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 He states that his catheter leaked last night and his bed was saturated. He is on something for bladder spasms. He denies other questions or concerns at this time. He will follow up with urologist at . MANUEL Moe
== END 2023-04-02 15:40 | disposition home or self-care (01) ==
LOC: ER 04-02 00:52 → 2ND 04-02 01:27
PROVIDERS: Nurse Practitioner Critical Care Medicine; Admitting Provider Internal Medicine Adolescent Medicine; Emergency Provider Emergency Medicine; PCP Nurse Practitioner Family; Visit Provider Internal Medicine Adolescent Medicine
DX: I48.0 Paroxysmal atrial fibrillation (principal); K20.90 Esophagitis, unspecified without bleeding; N39.0 Urinary tract infection, site not specified; I10 Essential (primary) hypertension; I25.10 Atherosclerotic heart disease of native coronary artery without angina pectoris; E78.2 Mixed hyperlipidemia; Z86.73 Personal history of transient ischemic attack (TIA), and cerebral infarction without residual deficits; I65.22 Occlusion and stenosis of left carotid artery; I70.213 Atherosclerosis of native arteries of extremities with intermittent claudication, bilateral legs; Z79.899 Other long term (current) drug therapy; I70.1 Atherosclerosis of renal artery; Z95.828 Presence of other vascular implants and grafts
CPT/HCPCS: 71275; 74177; 80048; 80053; 80061; 81001; 83605; 83690; 83735; 84436; 84443; 84484; 85025; 85610; 85730; 87040; 87086; 87088; 87186; 90471; 93005; 99291; G0378; J0696; Q9967

== ENCOUNTER 2023-04-06 19:18 | Emergency (ER) | payer BC, SELFPAY ==
[2023-04-06] VITALS (7 sets, daily range): BP systolic 107–143; BP diastolic 55–89; PULSE 79–139; RESP 16; O2SAT 97–99; BMI 34.1
[2023-04-06 20:06] LABS: Basophils % 0.3 % (0.1-2.0); Eosinophils # 0.5 K/mm3 (0.0-0.4); Eosinophils % 5.2 % (0.1-12.0); Hematocrit 36.6 % (42.0-52.0); Hemoglobin 11.6 g/dL (14.1-18.0); Lymphocytes % 19.7 % (10-50); Mean Corpuscular HGB Conc 31.6 g/dL (31.8-35.4); Mean Corpuscular Hemoglobin 28.4 pg (27.0-31.2); Mean Corpuscular Volume 89.7 fl (80-94); Mean Platelet Volume 7.9 fl (7.4-10.4); Monocytes # 0.4 K/mm3 (0.1-1.0); Monocytes % 4.3 % (1.7-9.3); Neutrophils % 70.4 % (37.0-80.0); Platelet Count 309 K/mm3 (142-424); Red Blood Count 4.08 M/mm3 (4.60-6.20); Red Cell Distribution Width 16.5 % (11.5-17.5)
[2023-04-06 20:17] LABS: Microscopic, Urine URINE MICROSCOPIC (MICROSCOPIC)
[2023-04-06 20:18] LABS: Chloride 108 mmol/L (98-107); Potassium 4.2 mmoL/L (3.5-5.1); Sodium 142 mmol/L (136-145)
[2023-04-06 20:21] LABS: Alanine Aminotransferase 20 U/L (12-78); Albumin Level 3.7 g/dl (3.5-5.0); Alkaline Phosphatase 89 U/L (38-126); Anion Gap 13.2 mEq/L (5-15); Aspartate Amino Transferase 26 U/L (17-59); Bilirubin,Total 0.5 mg/dl (0.2-1.3); Blood Urea Nitrogen 16 mg/dl (9-20); Calcium 9.2 mg/dl (8.4-10.2); Carbon Dioxide 25 mmol/L (22.0-30.0); Creatinine Clearance Estimated 113 mL/min (50-200); Estimated Glomerular Filt Rate 69 ml/min (>60); GFR (African American) 83 ML/MIN (>60); Globulin 3.6 g/dL (1.3-3.2); Glucose 157 mg/dl (74-100); Total Protein,Serum 7.3 g/dl (6.3-8.2)
--- NOTE | 2023-04-06 20:44 | PC.NURSE ---
Pt requested something for pain. RN notified.
[2023-04-06 20:59] LABS: Appearance,Urine SL CLOUDY (Clear); Bilirubin,Urine Negative (Negative); Blood, Urine 3+ (Negative); Color,Urine YELLOW (Yellow); Glucose,Urine (UA) Negative (Negative); Ketones,Urine Negative (Negative); Leukocyte Esterase,Urine 1+ (Negative); Nitrate,Urine POSITIVE (Negative); Protein,Urine 2+ (Negative); Specific Gravity, Urine >= 1.030 (1.005-1.030); Urobilinogen,Urine 0.2 EU/dl (0.2)
--- NOTE | 2023-04-06 21:11 | HMH.EDGENADL ---
Discharge Plan Disposition Patient Disposition: Home, Self-Care Prescriptions Prescriptions: No Action methocarbamol 750 mg tablet 750 mg PO Q6 cephalexin 500 mg capsule 500 mg PO QID oxybutynin chloride 5 mg tablet 5 mg PO BID metoprolol tartrate 25 mg Tablet 25 mg PO BID diltiazem HCl 180 mg Capsule,Extended Release 24hr 180 mg PO DAILY 30 Days Qty: 30 0RF Xarelto 15 mg Tablet 15 mg PO QPMWITHMEAL 30 Days Qty: 30 0RF pantoprazole 40 mg tablet,delayed release (DR/EC) 40 mg PO DAILY 30 Days Qty: 30 0RF furosemide 20 mg Tablet 20 mg PO DAILY 30 Days Qty: 30 0RF diclofenac sodium 75 mg tablet,delayed release (DR/EC) 75 mg PO DAILY PRN (Reason: Pain) 30 Days Qty: 0 0RF rosuvastatin [Crestor] 40 mg tablet 40 mg PO DAILY 30 Days Qty: 30 0RF allopurinol 300 MG tablet 300 mg PO DAILY benazepril 40 MG tablet 40 mg PO DAILY clopidogrel 75 MG tablet 75 mg PO QDAY Referrals Follow up/Referrals: Shakira Todd [Primary Care Provider] - See instructions Activity Restrictions/Add. Instructions Additional Instructions/Restrictions: Follow-up with urology, Dr. Garcia, at [facility]. Conversation was had with him on 04/07 just after midnight discussing this case and CT findings. Recommended no further intervention immediately and follow-up outpatient on 04/08, as scheduled. Call your family doctor to establish care for this visit to the emergency department and schedule follow-up within 48 hours to ensure improvement. If you have any worsening of your condition or any other concerning signs or symptoms, return to the emergency department or your primary care doctor for further evaluation. Clinical Impressions Clinical Impression: Seroma complicating a procedure Instructions Patient Instructions: DI for Urinary Tract Infection (UTI), DI for Urinary Tract Infection in Children Discharge ED Provider: Madan Paz General Adult HPI <Josue Perkins MD - Last Filed: 04/07/23 01:01> General Chief complaint: Urogenital-Male Stated complaint: Possible UTI; blood in your urine and clots Time Seen by Provider: 04/06/23 21:11 Mode of Arrival: Family Vehicle Source of Information: Patient Limitations: No Limitations Description of Symptoms (Recalled from ER Triage Doc. by RN): 58 yo male presents with CC complications with urine as a result of having a catheter. Patient is alert oriented, had a procedure 3 weeks ago to rotor-router my prostate' and the catheter was left in till his follow up appointment (scheduled for 04/08/23). Patient states he went to the races thursday night, and was sitting in the bleachers and his BSD was full and he lost hold on it and it fell down through the bleachers yanking on the catheter. Additionally, he stated he feels like the concentration of his urine is a little more than normal and may have a uti. Was recently placed on XArelto for afib and thinks he may be passing blood clots occasionally as well. History of Present Illness HPI narrative: Patient presents for evaluation of suprapubic pain, most focal in the left lower quadrant, with no associated fevers or chills or nausea or vomiting, pain is moderate in severity and nonradiating, patient was noted to have abscess versus seroma after prostatectomy complicated by hypovolemic shock, discharged from [facility] at the end of last month. Subsequently was admitted for short stay which included course of Bactrim. Describes associated diarrhea x1, no previous therapies today. Patient has indwelling Mesa catheter that was recently pulled on after he accidentally dropped it through the bleachers at a sporting event. Describes mild amount of hematuria after that event. Has not subsequently had any hematuria. Denies any nausea or vomiting. Denies any pain elsewhere. Related Data Home Medications Medication Instructions Recorded Confirmed allopurinol 300 mg tablet 300 mg PO FARRAH
[2023-04-06 21:12] LABS: Bacteria,Urine 1+ /lpf; RBC,Urine TNTC #/hpf (0-3); Squamous Epithelial Cell,Urine Occasional #/hpf (0-5)
--- NOTE | 2023-04-06 21:26 | CT_ITS ---
PROCEDURE INFORMATION: Exam: CT Abdomen And Pelvis With Contrast Exam date and time: 04/06/2023 9:49 PM Age: 58 years old Clinical indication: Abdominal pain; Prior surgery; Surgery date: <1 month; Surgery type: Recent prostate surgery; Patient HX: C/O pain along incision; Additional info: Concern for postop infection, poss abscess on prio TECHNIQUE: Imaging protocol: Computed tomography of the abdomen and pelvis with contrast. Radiation optimization: All CT scans at this facility use at least one of these dose optimization techniques: automated exposure control; mA and/or kV adjustment per patient size (includes targeted exams where dose is matched to clinical indication); or iterative reconstruction. Contrast material: ISOVUE; Contrast volume: 75 ml; Contrast route: IV; REPORTING DATA: Count of CT and Cardiac NM exams in prior 12 months: This patient has received 2 known CTs and 0 known cardiac nuclear medicine studies in the 12 months prior to the current study. COMPARISON: CT ABDOMEN PELVIS W CON 04/01/2023 11:51 PM FINDINGS: Tubes, catheters and devices: Postprocedural changes of recent catheterization. Mesa catheter in appropriate position. Decompressed urinary bladder. Moderate urinary bladder wall thickening. Mild perivesicular fat stranding. Liver: Normal. No mass. Gallbladder and bile ducts: Postsurgical changes of cholecystectomy. Pancreas: Normal. No ductal dilation. Spleen: Normal. No splenomegaly. Adrenal glands: Normal. No mass. Kidneys and ureters: Bilateral nonobstructing nephrolithiasis. Stomach and bowel: Colonic diverticulosis without evidence of acute diverticulitis. Normal caliber. Appendix: No evidence of appendicitis. Intraperitoneal space: Unremarkable. No free air. No significant fluid collection. Vasculature: Mild atherosclerotic changes of the abdominal aorta and iliac arteries without aneurysmal dilatation. Unchanged positioning of a vascular stent of the left renal artery origin. Lymph nodes: Similar mildly prominent bilateral inguinal lymph nodes. Urinary bladder: See Tubes, catheters and devices finding. Reproductive: Prostatectomy. Bones/joints: Unremarkable. No acute fracture. Soft tissues: Grossly unchanged size of a 4.8 x 9 x 7 cm irregular rim enhancing fluid collection within the mons pubis subcutaneous soft tissues which again appears to communicate with a smaller extraperitoneal fluid collection within the left perivesicular space. The left perivesicular space fluid collection also appears grossly unchanged in size. Similar moderate mons pubis inflammatory fat stranding. Bilateral fat containing inguinal hernias and tiny fat containing umbilical hernia. IMPRESSION: 1. Grossly unchanged size of an irregular rim enhancing fluid collection within the mons pubis subcutaneous soft tissues which again appears to communicate with a smaller extraperitoneal fluid collection within the left perivesicular space. These collections again raise concern for possible abscess formation versus infected seroma. 2. Postprocedural changes of Mesa catheterization. Redemonstration of moderate circumferential urinary bladder wall thickening with perivesicular fat stranding findings concerning for cystitis. 3. Chronic ancillary findings as above.
--- NOTE | 2023-04-06 22:47 | PC.NURSE ---
Pt provided with warm blanket
--- NOTE | 2023-04-06 23:38 | PC.NURSE ---
Called RAD to have images powershared to [facility]
[2023-04-07 00:46] VITALS: BP 147/94; PULSE 72; RESP 18; TEMP 36.7
== END 2023-04-07 01:02 | disposition home or self-care (01) ==
PROVIDERS: Emergency Medicine; Emergency Provider Emergency Medicine; PCP Nurse Practitioner Family
DX: N99.842 Postprocedural seroma of a genitourinary system organ or structure following a genitourinary system procedure (principal); R10.32 Left lower quadrant pain; R31.9 Hematuria, unspecified; I25.10 Atherosclerotic heart disease of native coronary artery without angina pectoris; I65.29 Occlusion and stenosis of unspecified carotid artery; I11.9 Hypertensive heart disease without heart failure; Y83.6 Removal of other organ (partial) (total) as the cause of abnormal reaction of the patient, or of later complication, without mention of misadventure at the time of the procedure
CPT/HCPCS: 74177; 80053; 81001; 85025; 87086; 87088; 87186; 96374; 96376; 99285; Q9967

== ENCOUNTER 2023-05-11 07:24 | Emergency (ER) | payer BC, SELFPAY ==
[2023-05-11] VITALS (9 sets, daily range): BP systolic 132–172; BP diastolic 85–112; PULSE 67–116; RESP 15–22; TEMP 36.8; O2SAT 96–99; BMI 33.0
--- NOTE | 2023-05-11 07:24 | PC.NURSE ---
Dr. Monroe at [facility] for pt eval
--- NOTE | 2023-05-11 07:25 | ECG_ITS ---
APPROVED REPORT Exam: Resting ECG HR:89 bpm ECG Measurements Heart Rate 89 AXES QRSd 93 QRS 99 QT 369 T 62 QTc 415 Conclusion ATRIAL FIBRILLATION BORDERLINE RIGHT AXIS DEVIATION [QRS AXIS > 90] ABNORMAL RHYTHM ECG UNCONFIRMED REPORT Electronically signed by : Randell Fang MD 05/11/2023 20:17:55
--- NOTE | 2023-05-11 07:37 | XR_ITS ---
FINAL REPORT TECHNIQUE: Single view chest CLINICAL HISTORY: SOB/CP, nonsmoker FINDINGS: A single view of the chest was obtained. The heart and mediastinum are within normal limits. The lungs are clear. There is no pneumothorax. Osseous structures are unremarkable. IMPRESSION: No acute cardiopulmonary process. Reviewed, Interpreted and Dictated by Bowen Crum MD Transcribed by Lorene Nicholas Authenticated and [facility][1]
--- NOTE | 2023-05-11 07:38 | HMH.EDGENADL ---
Discharge Plan Disposition Patient Disposition: Home, Self-Care Chief Complaint: Arrhythmia/Palpitations Prescriptions Prescriptions: No Action methocarbamol 750 mg tablet 750 mg PO Q6 oxybutynin chloride 5 mg tablet 5 mg PO BID metoprolol tartrate 25 mg Tablet 25 mg PO BID diclofenac sodium 75 mg tablet,delayed release (DR/EC) 75 mg PO DAILY PRN (Reason: Pain) 30 Days Qty: 0 0RF allopurinol 300 MG tablet 300 mg PO DAILY benazepril 40 MG tablet 40 mg PO DAILY clopidogrel 75 MG tablet 75 mg PO QDAY flecainide 50 mg Tablet 50 mg PO Q12H pantoprazole 40 mg tablet,delayed release (DR/EC) 40 mg PO DAILY furosemide 20 mg tablet 20 mg PO DAILY rosuvastatin [Crestor] 40 mg tablet 40 mg PO DAILY Activity Restrictions/Add. Instructions Additional Instructions/Restrictions: At this time is felt you are safe to be discharged home. For new or worsening symptoms please not hesitate to return the emergency department. Please take your medications as they were previously prescribed to you. Please continue to follow-up with cardiology as discussed next week. Clinical Impressions Clinical Impression: CHF (congestive heart failure), Dyspnea Discharge ED Provider: Timothy Monroe General Adult HPI General Chief complaint: Arrhythmia/Palpitations Stated complaint: CP Time Seen by Provider: 05/11/23 07:24 History of Present Illness HPI narrative: Patient is a 58-year-old male with past medical history of hypertension, hyperlipidemia, atrial fibrillation who presents emergency department for evaluation of chest pain shortness of breath. Patient states that he was recently admitted with atrial fibrillation and was discharged on rate control and diuretics. Patient self discontinued diuretics after 3 doses. Since then he has followed up with [facility] at where he was placed on flecainide. He has intermittent shortness of breath which he attributes to panic attacks . There is associated chest pain. It is worse at night when he lays down. Due to persistent symptoms he presents here for continued evaluation. Per chart review patient had a history of prostate intervention with subsequent seroma. In March. Related Data Home Medications Medication Instructions Recorded Confirmed allopurinol 300 mg tablet 300 mg PO DAILY Gout 06/02/18 05/11/23 benazepril 40 mg tablet 40 mg PO DAILY High Blood Pressure 06/02/18 05/11/23 clopidogrel 75 mg tablet 75 mg PO QDAY Blood thinner 09/19/19 05/11/23 methocarbamol 750 mg tablet 750 mg PO Q6 Pain / spasms 04/01/23 05/11/23 metoprolol tartrate 25 mg tablet 25 mg PO BID High Blood Pressure 04/01/23 05/11/23 oxybutynin chloride 5 mg tablet 5 mg PO BID bladder spasm 04/01/23 05/11/23 flecainide 50 mg tablet 50 mg PO Q12H a fib 05/11/23 05/11/23 furosemide 20 mg tablet 20 mg PO DAILY Heart Failure 05/11/23 05/11/23 pantoprazole 40 mg tablet,delayed 40 mg PO DAILY gerd 05/11/23 05/11/23 release rosuvastatin 40 mg tablet (Crestor) 40 mg PO DAILY High Cholesterol 05/11/23 05/11/23 Previous Rx's Medication Instructions Recorded diclofenac sodium 75 mg 75 mg PO DAILY PRN Pain 30 days #0 04/02/23 tablet,delayed release tabs Allergies Allergy/AdvReac Type Severity Reaction Status Date / Time amitriptyline Allergy Mild Unknown Verified 04/23/23 10:30 allergy reaction atorvastatin Allergy Mild Unknown Verified 04/23/23 10:30 allergy reaction duloxetine [From Cymbalta] Allergy Mild Unknown Verified 04/23/23 10:30 allergy reaction Sulfa (Sulfonamide Allergy Unknown Verified 04/23/23 10:30 Antibiotics) allergy reaction PFSH PFSH Disclaimer: The information contained in this section may have been updated after the patient was seen, as this information can be updated by other users. Medical History (Updated 05/11/23 @ 11:47 by Timothy Monroe MD) CAD (cor
[2023-05-11 07:45] LABS: Basophils % 0.5 % (0.1-2.0); Eosinophils # 0.3 K/mm3 (0.0-0.4); Lymphocytes # 1.6 K/mm3 (0.7-4.5); Lymphocytes % 22.4 % (10-50); Mean Corpuscular Hemoglobin 26.4 pg (27.0-31.2); Mean Corpuscular Volume 85.2 fl (80-94); Monocytes # 0.5 K/mm3 (0.1-1.0); Monocytes % 6.9 % (1.7-9.3); Neutrophils # 4.6 K/mm3 (1.8-7.8); Neutrophils % 66.1 % (37.0-80.0); Platelet Count 181 K/mm3 (142-424); Red Blood Count 4.94 M/mm3 (4.60-6.20); Red Cell Distribution Width 17.7 % (11.5-17.5); White Blood Count 6.9 K/mm3 (4.8-10.8)
--- NOTE | 2023-05-11 07:47 | PC.NURSE ---
RAD at [facility] for portable chest xray
--- NOTE | 2023-05-11 07:47 | PC.NURSE ---
rad at BS
[2023-05-11 08:03] LABS: Alanine Aminotransferase 14 U/L (12-78); Albumin/Globulin Ratio 1.3 (1.1-1.8); Alkaline Phosphatase 63 U/L (38-126); Anion Gap 13.5 mEq/L (5-15); Aspartate Amino Transferase 32 U/L (17-59); Bilirubin,Total 0.8 mg/dl (0.2-1.3); Blood Urea Nitrogen 22 mg/dl (9-20); Calcium 8.9 mg/dl (8.4-10.2); Carbon Dioxide 26 mmol/L (22.0-30.0); Chloride 108 mmol/L (98-107); Estimated Glomerular Filt Rate 52 ml/min (>60); GFR (African American) 63 ML/MIN (>60); Glucose 124 mg/dl (74-100); Potassium 4.5 mmoL/L (3.5-5.1); Sodium 143 mmol/L (136-145)
[2023-05-11 08:15] LABS: NT Pro Brain Natriuretic Pep. 4340 pg/mL (0-125)
[2023-05-11 08:47] LABS: Troponin I < 0.01 ng/ml (0.00-0.034)
--- NOTE | 2023-05-11 09:01 | PC.NURSE ---
checked on pt he is asleep in bed, at bs
--- NOTE | 2023-05-11 10:02 | PC.NURSE ---
patricia Sawant at BS
[2023-05-11 10:21] LABS: Troponin I < 0.01 ng/ml (0.00-0.034)
--- NOTE | 2023-05-11 11:16 | PC.NURSE ---
checked on pt he setting on side of bed nothing needed at this time, at bs
--- NOTE | 2023-05-11 11:30 | EXP.CARD.CON ---
History of Present Illness History of Present Illness Consult date: 05/11/23 Requesting physician: Timothy Monroe Consult reason: shortness of breath Chief complaint: Cough, SOA Additional Medical History:: 1. Renal artery stenosis -History of renal artery stenting 2. History of CVA -Status post carotid artery intervention 3. Paroxysmal atrial fibrillation, diagnosed during hospitalization 03/12/2023 with no anticoagulation started due to hemorrhagic shock -Plans for ablation and Watchman implantation at the [facility] later this year -Started on Xarelto 04/02/2023 4. Hypertension -Echo, 10/17/2021, mild biatrial enlargement, normal LV size, mild concentric LVH, EF 55% with no regional WMA. Mild RV enlargement with normal contractility. Trace MR and TR. 5. GERD with suspected esophageal stricture -Plans for EGD later this year 6. Lexiscan Myoview, 03/13/2020, no ischemia, EF 63% -Patient relates cardiac catheterization several years ago in [place], [place] with no need for stenting 7. Dyslipidemia -On statin therapy 8. History of prostate surgery (prostatectomy), 03/13/2023 complicated hemorrhagic shock and A-fib with RVR -Postop complication of seroma noted last month on CT of the History of present illness: 58-year-old white male with history as noted above presented to the emergency department for recurrent episodes of chest discomfort with shortness of breath and cough worse when lying down at night. Recently seen in the ER last month here for A-fib with RVR and released after rate control was obtained and placed on anticoagulation therapy. Since then he has followed up with [facility] at where his medications have been adjusted to include flecainide with plans to proceed with ablation and watchman implantation later this year. He has a follow-up with them next week. EKG today shows A-fib with rates of about 100 bpm. Lab work in the ER showed evidence of mild dehydration but with evidence of elevated BNP at 4340 but chest x-ray negative for CHF. Patient does have some edema of his extremities on exam. He has not taken his Lasix in 3 weeks. He stopped it due to the exacerbation of the dry mouth related to oxybutynin Troponins are normal All of this is complicated also by the patient having persistent GERD symptoms for which she takes PPI therapy with plans for EGD by Dr. Todd in the near future. He is still recovering from prostatectomy complicated by seroma. Recommend IV dose of Lasix here in the ER and if patient is able to diuresis with improvement in symptoms then discharged home for follow-up with [facility] next week. Would recommend patient taking his Lasix at least 3 days/week. [facility] Disclaimer: The information contained in this section may have been updated after the patient was seen, as this information can be updated by other users. Medical History (Updated 05/11/23 @ 11:48 by ANKUSH Henry) CAD (coronary artery disease) Carotid artery stenosis COVID-19 virus infection CVA (cerebral vascular accident) Diverticulitis Encounter for pre-operative cardiovascular clearance HHD (hypertensive heart disease) History of CVA (cerebrovascular accident) History of CVA in adulthood Prostate enlargement Renal artery stenosis Surgical History (Updated 04/23/23 @ 10:31 by LAI Chahal) History of colonoscopy History of kidney surgery History of prostate surgery Hx laparoscopic cholecystectomy S/P carotid endarterectomy Social History Smoking Status: Never smoker second hand exposure: No alcohol intake: never substance use type: denies use current occupational status: employed Travel in the last 8 weeks: None household members: spouse housing: house 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
== END 2023-05-11 12:02 | disposition home or self-care (01) ==
PROVIDERS: Emergency Provider Emergency Medicine; PCP Nurse Practitioner Family
DX: I48.91 Unspecified atrial fibrillation; I11.9 Hypertensive heart disease without heart failure; R07.9 Chest pain, unspecified; R06.02 Shortness of breath; E78.5 Hyperlipidemia, unspecified; I25.10 Atherosclerotic heart disease of native coronary artery without angina pectoris; I65.29 Occlusion and stenosis of unspecified carotid artery
CPT/HCPCS: 71045; 80053; 83880; 84484; 85025; 93005; 96374; 99285

== ENCOUNTER 2023-05-29 08:38 | Day surgery (SDC) | payer BC, SELFPAY ==
[2023-05-26 14:10] VITALS: BMI 33.0
--- NOTE | 2023-05-29 09:02 | EXP.GEN.HP ---
HPI HPI HPI: Patient presents for EGD. He is a 58-year-old male From [place] with history of coronary artery disease, cerebrovascular accident, carotid artery stenosis (status post carotid endarterectomy), diverticulitis, hypertension. He had undergone evaluation with Dr. Clayton 3 years ago for abdominal pain and possible irritable bowel symptoms . patient states that he had previously been told he had a hiatal hernia as he has epigastric pain with protrusion but was diagnosed with a rectus diastases. Dr. Clayton had performed EGD and colonoscopy on 03/15/2020. Following that he did thorough radiologic work-up including chest CT scan and upper GI with small bowel follow-through. At that time upper GI with small bowel follow-through revealed small sliding hiatal hernia with mild gastroesophageal reflux and mild esophageal dysmotility. colonoscopy revealed moderate bowel prep, significant spasticity and lack of relaxation, pandiverticulosis, sessile polyp at 45 cm. Biopsies revealed mild chronic gastritis, polyp at 45 cm was inflammatory. Patient was scheduled to see gastroenterology for ongoing evaluation of abdominal pain. Patient had seen gastroenterology apparently at . Apparently consideration was being given for possible capsule endoscopy. Exact details of their evaluation is uncertain. He recently has had some issues with kidney stones requiring surgery at and also had prostatectomy through open procedure. Recently patient had been having epigastric pain with early satiety and bloating and reflux symptoms. He had to take peppermint to help relieve this. He presented to the emergency department with the symptoms andpatient had been admitted to the hospital on 04/02/2023 with complaints of shortness of breath and upper abdominal pain. he was found to be in A-fib with rapid ventricular response. He was admitted and placed on diltiazem and heparin drips. He was initiated on pantoprazole. CT scan of the chest on 04/01/2023 revealed findings of diffuse esophageal thickening. Given his history of epigastric pain with clinical diagnosis of esophagitis/gastritis he was referred for EGD. He describes postprandial epigastric pain and symptoms consistent with dysphagia and heartburn. He describes early satiety. He states that it is worse with drinking carbonated beverages. I felt that it may be reasonable to proceed with upper endoscopy to evaluate his symptomatology. I did discuss possible evaluation with gastroenterology. He wished to have this performed locally. I did inform him that upper endoscopy may be low yield given previous upper endoscopy findings 3 years ago. He could require additional work-up including gastric emptying scan and evaluation for chronic mesenteric ischemia. After the patient was seen in the office on 04/23/2023 and scheduled for endoscopy he did present to the emergency department on 05/11/2023 with complaints of chest pain and shortness of breath. At that time he was seen and evaluated and underwent cardiology consultation and able to be managed as an outpatient. Patient states that if he does not take his Protonix he has significant symptoms of reflux. [facility] Disclaimer: The information contained in this section may have been updated after the patient was seen, as this information can be updated by other users. Medical History Atrial fibrillation CAD (coronary artery disease) Carotid artery stenosis COVID-19 virus infection CVA (cerebral vascular accident) Diverticulitis Encounter for pre-operative cardiovascular clearance HHD (hypertensive heart disease) History of CVA (cerebrovascular accident) History of CVA in adulthood History of gastroesophageal reflux (GERD) Prostate enlargement Renal artery stenosis Sleep apnea Surgical History History of colonoscopy History of kidney surgery Hi
[2023-05-29 09:08] VITALS: BP 146/64; PULSE 65; RESP 18; TEMP 36.7; O2SAT 98
--- NOTE | 2023-05-29 09:16 | EXP.ANES.CKL ---
[facility] Disclaimer: The information contained in this section may have been updated after the patient was seen, as this information can be updated by other users. Medical History Atrial fibrillation CAD (coronary artery disease) Carotid artery stenosis COVID-19 virus infection CVA (cerebral vascular accident) Diverticulitis Encounter for pre-operative cardiovascular clearance HHD (hypertensive heart disease) History of CVA (cerebrovascular accident) History of CVA in adulthood History of gastroesophageal reflux (GERD) Prostate enlargement Renal artery stenosis Sleep apnea Surgical History History of colonoscopy History of kidney surgery History of prostate surgery Hx laparoscopic cholecystectomy S/P carotid endarterectomy Family History Other CHF (congestive heart failure) Family history of internal cardiac defibrillator Family history of pacemaker Social History Smoking Status: Never smoker second hand exposure: No alcohol intake: never substance use type: denies use current occupational status: employed Travel in the last 8 weeks: None household members: spouse housing: house 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 current occupational exposures/hazards: No caffeine: Yes [facility] Anesthesia Checklist Patient Identification Patient Identification: Arm Band and Verbal (Name & ) Structural Data Admitted From: Home Planned Operative Procedure/s: EGD Consent for Planned Operative Procedure(s) Verified: Yes NPO Status Verified Time NPO: 00:00 Additional verifications Anesthesia Reactions: No Hx Blood Transfusions: No Blood Transfusion Reaction: No Airway Assessment Mallampati Score:: Class II C-Spine Mobility Assessed: Yes TMJ Mobility Assessed: Yes Dentition: Good Dentition Neurological Assessment Level of Consciousness: Awake Hx Seizures: No Numbness or tingling in extremities: No Anesthesia Plan Anesthesia Risk discussed: Yes Anesthesia Plan: Verified ASA Class: III Anesthesia Type: MAC
[2023-05-29 09:47] VITALS: O2SAT 98
--- NOTE | 2023-05-29 09:58 | HMH.SCOPE ---
Procedure: Date: 05/29/23 Patient Date of :: 1965 Procedure Performed:: Esophagogastroduodenoscopy with biopsies Indications:: Patient presents for EGD. He is a 58-year-old male From [place] with history of coronary artery disease, cerebrovascular accident, carotid artery stenosis (status post carotid endarterectomy), diverticulitis, hypertension. He had undergone evaluation with Dr. Clayton 3 years ago for abdominal pain and possible irritable bowel symptoms . patient states that he had previously been told he had a hiatal hernia as he has epigastric pain with protrusion but was diagnosed with a rectus diastases. Dr. Clayton had performed EGD and colonoscopy on 03/15/2020. Following that he did thorough radiologic work-up including chest CT scan and upper GI with small bowel follow-through. At that time upper GI with small bowel follow-through revealed small sliding hiatal hernia with mild gastroesophageal reflux and mild esophageal dysmotility. colonoscopy revealed moderate bowel prep, significant spasticity and lack of relaxation, pandiverticulosis, sessile polyp at 45 cm. Biopsies revealed mild chronic gastritis, polyp at 45 cm was inflammatory. Patient was scheduled to see gastroenterology for ongoing evaluation of abdominal pain. Patient had seen gastroenterology apparently at . Apparently consideration was being given for possible capsule endoscopy. Exact details of their evaluation is uncertain. He recently has had some issues with kidney stones requiring surgery at and also had prostatectomy through open procedure. Recently patient had been having epigastric pain with early satiety and bloating and reflux symptoms. He had to take peppermint to help relieve this. He presented to the emergency department with the symptoms andpatient had been admitted to the hospital on 04/02/2023 with complaints of shortness of breath and upper abdominal pain. he was found to be in A-fib with rapid ventricular response. He was admitted and placed on diltiazem and heparin drips. He was initiated on pantoprazole. CT scan of the chest on 04/01/2023 revealed findings of diffuse esophageal thickening. Given his history of epigastric pain with clinical diagnosis of esophagitis/gastritis he was referred for EGD. He describes postprandial epigastric pain and symptoms consistent with dysphagia and heartburn. He describes early satiety. He states that it is worse with drinking carbonated beverages. I felt that it may be reasonable to proceed with upper endoscopy to evaluate his symptomatology. I did discuss possible evaluation with gastroenterology. He wished to have this performed locally. I did inform him that upper endoscopy may be low yield given previous upper endoscopy findings 3 years ago. He could require additional work-up including gastric emptying scan and evaluation for chronic mesenteric ischemia. After the patient was seen in the office on 04/23/2023 and scheduled for endoscopy he did present to the emergency department on 05/11/2023 with complaints of chest pain and shortness of breath. At that time he was seen and evaluated and underwent cardiology consultation and able to be managed as an outpatient. Patient states that if he does not take his Protonix he has significant symptoms of reflux. Performing Provider:: Mahesh Todd MD Referring Provider:: Shakira Todd Sedation:: MAC sedation Procedure:: Patient history was obtained and appropriate physical examination was performed. Patient's medications and allergies were reviewed. Informed consent was obtained after explaining the benefits, alternatives, and risks of the procedure including, but not limited to, bleeding, perforation, missed lesions, and adverse reaction to anesthesia medications. Patient was transported to endoscopy procedure room. Patient was connected to monitoring devices. Throughout the procedure the patient's blood pressure, pulse, and oxy
[2023-05-29 10:12] VITALS: BP 113/64; PULSE 67; RESP 18; TEMP 36.9; O2SAT 95
[2023-05-29 10:22] VITALS: BP 120/73; PULSE 62; RESP 18; O2SAT 98
[2023-05-29 10:32] VITALS: BP 126/74; PULSE 67; RESP 18; O2SAT 99
== END 2023-05-29 10:35 | disposition home or self-care (01) ==
PROVIDERS: PCP Nurse Practitioner Family; Visit Provider Surgery
PROC: 0DJ08ZZ Inspection of Upper Intestinal Tract, Via Natural or Artificial Opening Endoscopic (ICD-10-PCS; CPT 43235; principal; 2023-05-29 10:00)
DX: R10.13 Epigastric pain (principal); K22.4 Dyskinesia of esophagus; K29.50 Unspecified chronic gastritis without bleeding; K20.0 Eosinophilic esophagitis
CPT/HCPCS: 43239

== ENCOUNTER → 2023-07-09 09:45 | Outpatient (CLI) | payer BC, SELFPAY ==
--- NOTE | 2023-07-09 09:46 | NM_ITS ---
FINAL REPORT TECHNIQUE: Sequential anterior images were obtained after the ingestion of eggs radiolabeled with mCi technetium 99M sulfur colloid. CLINICAL HISTORY: esophagitis pain after eating x 2 years 10:00 am .51 uci sulfur colloid injected into 2 whole eggs scrambled 1 white toast with butter 6 oz cup of water COMPARISON: None FINDINGS: GASTRIC EMPTYING SCAN Static images show normal emptying of the stomach into the small bowel. Based on the time activity curve, the estimated half-emptying time is abnormally prolonged at 101 minutes. IMPRESSION: Abnormally prolonged gastric emptying study consistent with gastroparesis or partial outlet obstruction. Reviewed, Interpreted and Dictated by Bowen Crum MD Transcribed by Aga Jackson Authenticated and [facility]
== END ==
PROVIDERS: PCP Nurse Practitioner Family; Visit Provider Surgery
DX: K20.90 Esophagitis, unspecified without bleeding (principal)
CPT/HCPCS: 78264; A9541

== ENCOUNTER 2023-07-17 20:25 | Emergency (ER) | payer BC, SELFPAY ==
[2023-07-17 20:37] VITALS: BP 197/98; PULSE 55; RESP 14; TEMP 36.5; O2SAT 97; BMI 33.7
[2023-07-17 20:45] VITALS: BP 197/98; PULSE 48; O2SAT 97
--- NOTE | 2023-07-17 20:52 | XR_ITS ---
PROCEDURE INFORMATION: Exam: XR Left Knee Exam date and time: 07/17/2023 9:14 PM Age: 58 years old Clinical indication: Pain; Knee; Left; Additional info: Fall, injury TECHNIQUE: Imaging protocol: Radiologic exam of the left knee. Views: 3 views. COMPARISON: CR XR KNEE LT 4V 02/24/2020 9:45 AM FINDINGS: Bones/joints: Small curvilinear calcific density anterior to the patella. Normal alignment. Trace osteoarthritis. Soft tissues: Anterior knee soft tissue swelling. IMPRESSION: 1. Small curvilinear calcific density anterior to the patella suggestive of a chip fracture. 2. Anterior knee soft tissue swelling.
--- NOTE | 2023-07-17 20:52 | XR_ITS ---
PROCEDURE INFORMATION: Exam: XR Right Femur Exam date and time: 07/17/2023 9:09 PM Age: 58 years old Clinical indication: Pain; Thigh; Right; Additional info: Fall, injury TECHNIQUE: Imaging protocol: Radiologic exam of the right femur. Views: 2 views. COMPARISON: CT ABDOMEN PELVIS W CON 04/06/2023 9:49 PM FINDINGS: Bones/joints: No acute fracture or malalignment. Right hip and knee osteoarthritis. Patellar enthesopathy. Soft tissues: Anterior knee soft tissue swelling. IMPRESSION: Anterior knee soft tissue swelling. No acute osseous findings.
--- NOTE | 2023-07-17 20:52 | XR_ITS ---
PROCEDURE INFORMATION: Exam: XR Right Knee Exam date and time: 07/17/2023 9:12 PM Age: 58 years old Clinical indication: Pain; Knee; Right; Additional info: Fall, injury TECHNIQUE: Imaging protocol: Radiologic exam of the right knee. Views: 3 views. COMPARISON: CR Femur R 07/17/2023 9:09 PM FINDINGS: Bones/joints: No acute fracture or malalignment. Mild osteoarthritis. Patellar enthesopathy. Soft tissues: Anterior knee soft tissue swelling. IMPRESSION: Anterior knee soft tissue swelling. No acute osseous findings.
--- NOTE | 2023-07-17 20:55 | [facility].EDGENADL ---
Discharge Plan Disposition Patient Disposition: Home, Self-Care Prescriptions Prescriptions: No Action oxybutynin chloride 5 mg tablet 5 mg PO BID metoprolol tartrate 25 mg Tablet 25 mg PO BID diclofenac sodium 75 mg tablet,delayed release (DR/EC) 75 mg PO DAILY PRN (Reason: Pain) 30 Days Qty: 0 0RF tadalafil [Cialis] 20 mg Tablet 20 mg PO NEEDED PRN (Reason: *) Xarelto 15 mg tablet 15 mg PO DAILY Patient Comments: TAKE 1 TABLET BY MOUTH ONCE DAILY acetaminophen [Tylenol] 325 mg Capsule 650 mg PO DAILY allopurinol 300 MG tablet 300 mg PO DAILY benazepril 40 MG tablet 40 mg PO DAILY clopidogrel 75 MG tablet 75 mg PO QDAY flecainide 50 mg Tablet 50 mg PO Q12H pantoprazole 40 mg tablet,delayed release (DR/EC) 40 mg PO DAILY furosemide 20 mg tablet 20 mg PO DAILY rosuvastatin [Crestor] 40 mg tablet 40 mg PO DAILY Referrals Follow up/Referrals: Noel Domínguez DO [Staff Physician] - See instructions (1-2 weeks without improvement ) Shakira Todd [Primary Care Provider] - See instructions Activity Restrictions/Add. Instructions Additional Instructions/Restrictions: No evidence of any fracture or dislocation please take Tylenol as needed for your symptoms keep ice on the area ambulate as tolerated. You may follow-up with our orthopedic surgeon in 1 to 2 weeks if you are not improving. Clinical Impressions Clinical Impression: Contusion of knee, right, Contusion of knee, left, Muscle strain of right thigh Discharge ED Provider: Rayne Villanueva General Adult [facility] General Chief complaint: Extremity Injury, Lower Stated complaint: AO 07/17/23 Fell,injury right knee,right hip injur Time Seen by Provider: 07/17/23 20:44 Mode of Arrival: Ambulatory Source of Information: Patient and Spouse Limitations: No Limitations Description of Symptoms (Recalled from ER Triage Doc. by RN): pt states he tripped over kristal today and landed directly on both knees. pt c/ R knee/hip/femur and L knee pain. pt presents with abrasions to his R knee and L de. The majority of the pts pain is in his R knee radiating retirement up his femur and down his de. pts R knee is edematous, warm and no loss of sensation. pt denies LOC. pt denies other injurys. pt is on xarelto. pt states his pain is 2/10. pt took a tramadol 2h ago, relieving most of the pain. History of Present Illness HPI narrative: Patient is a 58-year-old male presenting today after bilateral upper extremity injuries after falling while at the [employer]. States that he tripped on some kristal fell directly on to bilateral knees primarily onto his right side directly onto rocks. States majority of his pain is in his right knee with significant swelling welling and difficulty with ambulation but also has pain in his left knee and his right distal thigh. Has been able to ambulate this happened around noon today but given the significance of his symptoms he decided to come in for further evaluation and treatment. He is on Xarelto but denies any injuries elsewhere or any significant bleeding or expansive hematomas. Related Data Home Medications Medication Instructions Recorded Confirmed allopurinol 300 mg tablet 300 mg PO DAILY Gout 06/02/18 06/30/23 benazepril 40 mg tablet 40 mg PO DAILY High Blood Pressure 06/02/18 06/30/23 clopidogrel 75 mg tablet 75 mg PO QDAY Blood thinner 09/19/19 06/30/23 metoprolol tartrate 25 mg tablet 25 mg PO BID High Blood Pressure 04/01/23 06/30/23 oxybutynin chloride 5 mg tablet 5 mg PO BID bladder spasm 04/01/23 06/30/23 flecainide 50 mg tablet 50 mg PO Q12H a fib 05/11/23 06/30/23 furosemide 20 mg tablet 20 mg PO DAILY Heart Failure 05/11/23 06/30/23 pantoprazole 40 mg tablet,delayed 40 mg PO DAILY gerd 05/11/23 06/30/23 release rosuvastatin 40 mg tablet (Crestor) 40 mg PO DAILY High Cholesterol 05/11/23 06/30/23 rivaroxaban 15 mg tablet (Xarelto) 15 mg PO DAILY a f
[2023-07-17 21:33] VITALS: BP 182/85; PULSE 58; RESP 16; TEMP 36.5
== END 2023-07-17 21:33 | disposition home or self-care (01) ==
LOC: ER 21:01
PROVIDERS: Emergency Provider Student in an Organized Health Care Education/Training Program; PCP Nurse Practitioner Family
DX: S80.01XA Contusion of right knee, initial encounter (principal); M25.461 Effusion, right knee; S80.02XA Contusion of left knee, initial encounter; S76.911A Strain of unspecified muscles, fascia and tendons at thigh level, right thigh, initial encounter; I25.10 Atherosclerotic heart disease of native coronary artery without angina pectoris; I48.0 Paroxysmal atrial fibrillation; I65.29 Occlusion and stenosis of unspecified carotid artery; I11.9 Hypertensive heart disease without heart failure; K21.9 Gastro-esophageal reflux disease without esophagitis; I70.1 Atherosclerosis of renal artery; Z79.01 Long term (current) use of anticoagulants; Z86.73 Personal history of transient ischemic attack (TIA), and cerebral infarction without residual deficits; W01.198A Fall on same level from slipping, tripping and stumbling with subsequent striking against other object, initial encounter
CPT/HCPCS: 73552; 73562; 99284

== ENCOUNTER 2023-08-19 17:57 | Emergency (ER) | payer BC, SELFPAY ==
--- NOTE | 2023-08-19 18:34 | XR_ITS ---
PROCEDURE INFORMATION: Exam: XR Left Knee Exam date and time: 08/19/2023 6:32 PM Age: 58 years old Clinical indication: Other: Possible F; Uid; Additional info: Possible fluid on both knees TECHNIQUE: Imaging protocol: Radiologic exam of the left knee. Views: 3 views. COMPARISON: CR XR KNEE LT 3V 07/17/2023 9:14 PM FINDINGS: Bones/joints: Normal. Soft tissues: Normal. IMPRESSION: No acute findings.
--- NOTE | 2023-08-19 18:34 | XR_ITS ---
PROCEDURE INFORMATION: Exam: XR Right Knee Exam date and time: 08/19/2023 6:32 PM Age: 58 years old Clinical indication: Other: Possible fluid; Additional info: Possible fluid on both knees TECHNIQUE: Imaging protocol: Radiologic exam of the right knee. Views: 3 views. COMPARISON: CR XR KNEE RT 3V 07/17/2023 9:12 PM FINDINGS: Bones/joints: Normal. Soft tissues: Normal. IMPRESSION: No acute findings.
[2023-08-19 18:48] VITALS: BP 139/90; PULSE 64; RESP 18; TEMP 36.6; O2SAT 99; BMI 34.1
--- NOTE | 2023-08-19 19:03 | EXP.UTC ---
Discharge Plan Disposition Patient Disposition: Home, Self-Care Condition: Good Prescriptions Prescriptions: No Action oxybutynin chloride 5 mg tablet 5 mg PO BID metoprolol tartrate 25 mg Tablet 25 mg PO BID diclofenac sodium 75 mg tablet,delayed release (DR/EC) 75 mg PO DAILY PRN (Reason: Pain) 30 Days Qty: 0 0RF tadalafil [Cialis] 20 mg Tablet 20 mg PO NEEDED PRN (Reason: *) Xarelto 15 mg tablet 15 mg PO DAILY Patient Comments: TAKE 1 TABLET BY MOUTH ONCE DAILY acetaminophen [Tylenol] 325 mg Capsule 650 mg PO DAILY allopurinol 300 MG tablet 300 mg PO DAILY benazepril 40 MG tablet 40 mg PO DAILY clopidogrel 75 MG tablet 75 mg PO QDAY flecainide 50 mg Tablet 50 mg PO Q12H pantoprazole 40 mg tablet,delayed release (DR/EC) 40 mg PO DAILY furosemide 20 mg tablet 20 mg PO DAILY rosuvastatin [Crestor] 40 mg tablet 40 mg PO DAILY Referrals Follow up/Referrals: Shakira Todd [Primary Care Provider] - See instructions Noel Domínguez DO [Staff Physician] - See instructions Norris Wheeler MD [Referring] - See instructions Activity Restrictions/Add. Instructions Additional Instructions/Restrictions: *weight bearing as tolerated *RICE, Rest the extremity, Ice 15-20 minutes 3-4 times daily, Compress- wear the abhijeet wrap as discussed as much as possible to help reduce swelling and pain, Elevate the extremity when at rest *Abhijeet wrap/brace is for support and help control swelling, use it except in the shower. Be sure that is not to tight but not to loose either *Elevate when resting? *Ibuprofen 600-800mg every 6-8 hours as needed for pain an inflammation. If need something more can take Tylenol in between doses of Ibuprofen to help Immediately follow up with your family doctor for new or worsening of symptoms, or no noticeable improvement over the next 3-5 days Follow up with Orthopedics Clinical Impressions Clinical Impression: Bilateral knee pain Qualifiers: Chronicity: unspecified Qualified Code(s): M25.561 - Pain in right knee; M25.562 - Pain in left knee Instructions Patient Instructions: How To Perform RICE (Rest, Ice, Compress, Elevate) Discharge ED Provider: Tangela Jose [facility] HPI General Stated complaint: AO fall 07/17, bilateral knee pain Mode of Arrival: Ambulatory Source of Information: Patient Limitations: No Limitations Time Seen by Provider: 08/19/23 19:03 Description of Symptoms (Recalled from Triage Doc. by RN): Patient reports bilater knee pain from a fall injury on 07/18. States he was seen in the ER for this injury but thinks he has fluid buildup now. 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 and he is still having some pain and swelling in both knees States that he was worried that he may have some fluid in there or something and wanting to get it xray again Related Data Home Medications Medication Instructions Recorded Confirmed allopurinol 300 mg tablet 300 mg PO DAILY Gout 06/02/18 07/21/23 benazepril 40 mg tablet 40 mg PO DAILY High Blood Pressure 06/02/18 07/21/23 clopidogrel 75 mg tablet 75 mg PO QDAY Blood thinner 09/19/19 07/21/23 metoprolol tartrate 25 mg tablet 25 mg PO BID High Blood Pressure 04/01/23 07/21/23 oxybutynin chloride 5 mg tablet 5 mg PO BID bladder spasm 04/01/23 07/21/23 flecainide 50 mg tablet 50 mg PO Q12H a fib 05/11/23 07/21/23 furosemide 20 mg tablet 20 mg PO DAILY Heart Failure 05/11/23 07/21/23 pantoprazole 40 mg tablet,delayed 40 mg PO DAILY gerd 05/11/23 07/21/23 release rosuvastatin 40 mg tablet (Crestor) 40 mg PO DAILY High Cholesterol 05/11/23 07/21/23 rivaroxaban 15 mg tablet (Xarelto) 15 mg PO DAILY a fib-blood thinner 05/26/23 07/21/23 tadalafil 20 mg tablet (Cialis) 20 mg PO NEEDED PRN * 05/26/23 07/21/23 acetaminophen 325 mg capsule 650 mg PO DAILY Pain 05/29/23 07/21/23 (Tylenol) Previous Rx's Medication Instructions Recorded diclofenac sodium 75 mg 75 mg PO DAILY PRN Pain 30 days #0 04/02/23 tablet,delayed release tabs Allergies Allergy/AdvReac Type Severity Reaction Status Date / Time Sulfa (Sulfonamide Allergy Intermediate Unknown Verified 07/21/23 09:01 Antibiotics) allergy reaction Worker's Comp Is this a Worker's Comp case?: No [facility] Disclaimer: The information contained in this section may have been updated after the patient was seen, as this information can be updated by other users. Medical History Atrial fibrillation CAD (coronary artery disease) Carotid artery stenosis COVID-19 virus infection CVA (cerebral vascular accident) Diverticulitis Encounter for pre-operative cardiovascular clearance HHD (hypertensive heart disease) History of CVA (cerebrovascular accident) History of CVA in adulthood History of gastroesophageal reflux (GERD) Prostate enlargement Renal artery stenosis Sleep apnea Surgical History History of colonoscopy History of kidney surgery History of prostate surgery Hx laparoscopic cholecystectomy S/P carotid endarterectomy Family History Other CHF (congestive heart failure) Family history of internal cardiac defibrillator Family history of pacemaker Social History Smoking Status: Never smoker second hand exposure: No alcohol intake: never substance use type: denies use current occupational status: employed Travel in the last 8 weeks: None household members: spouse housing: house 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 current occupational exposures/hazards: No caffeine: Yes ROS Obtained: Yes All systems reviewed & no additional complaints except as documented and Yes Systems reviewed as appropriate & no additional complaints except as documented Constitutional Constitutional: Reports system reviewed and no additional complaints, except as documented and Reports as per HPI ENT Ears, Nose, Mouth, and Throat: Reports system reviewed and no additional complaints, except as documented and Reports as per HPI Cardiovascular Cardiovascular: Reports system reviewed and no additional complaints, except as documented and Reports as per HPI Respiratory Respiratory: Reports system reviewed and no additional complaints, except as documented and Reports as per HPI Gastrointestinal Gastrointestingal: Reports system reviewed and no additional complaints, except as documented and as per HPI Musculoskeletal Musculoskeletal: Reports system reviewed and no additional complaints, except as documented and Reports as per HPI Comments: Pain and swelling on and off for a month both knees after falling 1 month ago Physical Exam General General appearance: alert and in no apparent distress ENT ENT exam: Present mucous membranes moist Respiratory Respiratory exam: Present normal lung sounds bilaterally; Absent respiratory distress or wheezes Cardiovascular Cardiovascular exam: Present regular rate, normal rhythm and normal heart sounds Abdominal Exam Abdominal exam: Present soft and normal bowel sounds; Absent distention or tenderness Extremities Exam Extremities exam: Present other (bilateral knee pain, no bruising no redness, no swelling at this time) Neurological Exam Neurological exam: Present alert, oriented X3 and normal gait Medical Decision Making Abdirahman Inquiry Pt receiving controlled substance: No Abdirahman was queried for this patient: No Vital Signs: 08/19/23 18:48 Temperature 97.8 F Temperature Source Oral Pulse Rate [Radial] 64 Respiratory Rate 18 Blood Pressure [Right Arm] 139/90 Blood Pressure Mean [Right Arm] 106 Blood Pressure Source [Right Arm] Automatic Cuff Blood Pressure Position [Right Arm] Sitting 02 Sat by Pulse Oximetry 99 Oxygen Delivery Method Room Air Orders (Tests/Meds): ORDERS Category Date Time Status XR knee LT 3V Stat Exams 08/19/23 18:34 Taken XR knee RT 3V Stat Exams 08/19/23 18:34 Taken Radiology Data #1: Image(s): Knee (right) Image Reviewed: Yes I have reviewed radiologist's interpretation FINDINGS: Bones/joints: Normal. Soft tissues: Normal. IMPRESSION: No acute findings. #2: Image(s): Knee (left) Image Reviewed: Yes I have reviewed radiologist's interpretation FINDINGS: Bones/joints: Normal. Soft tissues: Normal. IMPRESSION: No acute findings.
[2023-08-19 19:25] VITALS: BP 139/90; PULSE 64; RESP 18; TEMP 36.6
== END 2023-08-19 19:26 | disposition home or self-care (01) ==
PROVIDERS: Emergency Provider Nurse Practitioner; PCP Nurse Practitioner Family
DX: M25.561 Pain in right knee (principal); M25.562 Pain in left knee; W19.XXXA Unspecified fall, initial encounter
CPT/HCPCS: 73562; 99212; 99214; G0463

== ENCOUNTER 2023-10-02 19:48 | Emergency (ER) | payer BC, SELFPAY ==
--- NOTE | 2023-10-02 20:56 | PC.NURSE ---
Patient was brought back to the triage room and was ambulatory at the time with a GCS of 15, vitals were obtained and patient was notified when a room was available that they would be placed in a room.
[2023-10-02 21:47] VITALS: BP 153/73; PULSE 67; RESP 19; TEMP 36.8; O2SAT 99; BMI 33.7
--- NOTE | 2023-10-02 22:29 | PC.NURSE ---
Vickie in RAD notified for ultrasound r/o torsion
[2023-10-02 22:34] LABS: Chloride 103 mmol/L (98-107); Potassium 3.7 mmoL/L (3.5-5.1); Sodium 139 mmol/L (136-145)
[2023-10-02 22:36] LABS: Basophils # 0.1 K/mm3 (0-0.2); Basophils % 0.3 % (0.1-2.0); Blood Urea Nitrogen 23 mg/dl (9-20); Creatinine Clearance Estimated 112 mL/min (50-200); Eosinophils # 0.1 K/mm3 (0.0-0.4); Eosinophils % 0.5 % (0.1-12.0); Estimated Glomerular Filt Rate 69 ml/min (>60); GFR (African American) 83 ML/MIN (>60); Hematocrit 45.5 % (42.0-52.0); Hemoglobin 15.6 g/dL (14.1-18.0); Lymphocytes # 2.9 K/mm3 (0.7-4.5); Lymphocytes % 21.4 % (10-50); Mean Corpuscular HGB Conc 34.3 g/dL (31.8-35.4); Mean Corpuscular Hemoglobin 31.7 pg (27.0-31.2); Mean Corpuscular Volume 92.6 fl (80-94); Mean Platelet Volume 8.3 fl (7.4-10.4); Monocytes % 7.6 % (1.7-9.3); Neutrophils # 9.6 K/mm3 (1.8-7.8); Neutrophils % 70.2 % (37.0-80.0); Platelet Count 147 K/mm3 (142-424); Red Blood Count 4.92 M/mm3 (4.60-6.20); Red Cell Distribution Width 15.6 % (11.5-17.5); White Blood Count 13.7 K/mm3 (4.8-10.8)
[2023-10-02 22:37] LABS: Alanine Aminotransferase 25 U/L (12-78); Albumin Level 3.9 g/dl (3.5-5.0); Albumin/Globulin Ratio 1.3 (1.1-1.8); Alkaline Phosphatase 86 U/L (38-126); Anion Gap 7.7 mEq/L (5-15); Aspartate Amino Transferase 31 U/L (17-59); Calcium 8.7 mg/dl (8.4-10.2); Carbon Dioxide 32 mmol/L (22.0-30.0); Glucose 96 mg/dl (74-100); Lactic Acid 1.2 mmol/L (0.7-2.1); Total Protein,Serum 6.9 g/dl (6.3-8.2)
[2023-10-02] MEDS: KETOROLAC 30MG/ML VIAL 15 MG IV (22:39)
[2023-10-02 22:46] LABS: Microscopic, Urine URINE MICROSCOPIC (MICROSCOPIC)
--- NOTE | 2023-10-02 22:50 | PC.NURSE ---
contacted moustapha beth for US call in
[2023-10-02 22:51] LABS: Appearance,Urine CLEAR (Clear); Bilirubin,Urine Negative (Negative); Blood, Urine Negative (Negative); Color,Urine YELLOW (Yellow); Glucose,Urine (UA) Negative (Negative); Ketones,Urine Negative (Negative); Leukocyte Esterase,Urine TRACE (Negative); Nitrate,Urine Negative (Negative); Protein,Urine Negative (Negative); Specific Gravity, Urine 1.025 (1.005-1.030); Urobilinogen,Urine 0.2 EU/dl (0.2)
[2023-10-02 23:08] LABS: Squamous Epithelial Cell,Urine Occasional #/hpf (0-5)
--- NOTE | 2023-10-02 23:48 | CT_ITS ---
PROCEDURE INFORMATION: Exam: CT Abdomen And Pelvis With Contrast Exam date and time: 10/03/2023 12:19 AM Age: 58 years old Clinical indication: Pain; Other: Groin; Additional info: R groin pain, hernia, unable to reduce TECHNIQUE: Imaging protocol: Computed tomography of the abdomen and pelvis with contrast. Radiation optimization: All CT scans at this facility use at least one of these dose optimization techniques: automated exposure control; mA and/or kV adjustment per patient size (includes targeted exams where dose is matched to clinical indication); or iterative reconstruction. Contrast material: ISOVUE; Contrast volume: 75 ml; Contrast route: IV; COMPARISON: CT ABDOMEN PELVIS W CON 04/06/2023 9:49 PM FINDINGS: Lungs: No acute finding. Liver: Moderate hepatic steatosis is evident. Gallbladder and bile ducts: The gallbladder is absent. There is no biliary ductal dilation. Pancreas: Normal. No ductal dilation. Spleen: The spleen is mildly enlarged measuring 13.6 cm in length. Adrenal glands: Normal. No mass. Kidneys and ureters: 3 mm right intrarenal calculus. The kidneys demonstrate symmetric unobstructed function. Stomach and bowel: There is diffuse colonic diverticulosis. No acute inflammation. No bowel obstruction. No mucosal thickening. Incidental note is made of a prominent diverticulum in the 2nd portion of the duodenum. Appendix: No evidence of appendicitis. Intraperitoneal space: Unremarkable. No free air. No significant fluid collection. Vasculature: Left renal artery stent is noted. There is mild calcific atherosclerotic disease without aneurysmal dilation of the aorta. Lymph nodes: Unremarkable. No enlarged lymph nodes. Urinary bladder: Unremarkable as visualized. Reproductive: Increased vascularity within the right hemiscrotum correlating with the prior scrotal ultrasound demonstrating epididymo-orchitis. Bones/joints: Unremarkable. No acute fracture. Soft tissues: Small fat containing inguinal hernias. IMPRESSION: 1. Inflammatory changes within the right hemiscrotum. 2. Other nonurgent findings as detailed.
--- NOTE | 2023-10-02 23:54 | ED_ITS ---
Discharge Plan Disposition Patient Disposition: Home, Self-Care Condition: Good Prescriptions Prescriptions: New levofloxacin 750 mg tablet 750 mg PO DAILY 7 Days Qty: 7 0RF ketorolac 10 mg tablet 10 mg PO Q8H PRN (Reason: pain) Qty: 20 0RF No Action oxybutynin chloride 5 mg tablet 5 mg PO BID metoprolol tartrate 25 mg Tablet 25 mg PO BID diclofenac sodium 75 mg tablet,delayed release (DR/EC) 75 mg PO DAILY PRN (Reason: Pain) 30 Days Qty: 0 0RF tadalafil [Cialis] 20 mg Tablet 20 mg PO NEEDED PRN (Reason: *) Xarelto 15 mg tablet 15 mg PO DAILY Patient Comments: TAKE 1 TABLET BY MOUTH ONCE DAILY acetaminophen [Tylenol] 325 mg Capsule 650 mg PO DAILY allopurinol 300 MG tablet 300 mg PO DAILY benazepril 40 MG tablet 40 mg PO DAILY clopidogrel 75 MG tablet 75 mg PO QDAY flecainide 50 mg Tablet 50 mg PO Q12H pantoprazole 40 mg tablet,delayed release (DR/EC) 40 mg PO DAILY furosemide 20 mg tablet 20 mg PO DAILY rosuvastatin [Crestor] 40 mg tablet 40 mg PO DAILY Referrals Follow up/Referrals: hSakira Todd [Primary Care Provider] - See instructions Activity Restrictions/Add. Instructions Additional Instructions/Restrictions: You were evaluated in the emergency department today. 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 You may also take Tylenol. Follow-up with your primary care provider as well as your urologi st over the next 3 days. Return to the emergency department for new or worsening symptoms. Clinical Impressions Clinical Impression: Acute epididymo-orchitis Instructions Patient Instructions: DI for Epididymitis, DI for Urinary Tract Infection (UTI), DI for Orchitis Discharge ED Provider: Mdaan Paz General Adult HPI <Madan Paz MD - Last Filed: 10/03/23 00:00> General Chief complaint: Urogenital-Male Stated complaint: left testicle pain, Time Seen by Provider: 10/02/23 21:41 Mode of Arrival: Family Vehicle Source of Information: Patient Limitations: No Limitations Description of Symptoms (Recalled from ER Triage Doc. by RN): 58 yo male presents with CC of right testicle tenderness x 2 days, swelling x 1. states his testicle and suprapubic area is hard and swollen. Pain radiates up into right flank and through mid abd. Patient denies any injury. Patient is alert, oriented. Afebrile. VSS. Emv 15. History of Present Illness HPI narrative: 58-year-old male history of CAD on aspirin and Plavix, A-fib status post Watchman procedure still taking Xarelto, CVA I with no residual deficits, pretension, hyperlipidemia, presenting with testicular pain. Started today in the afternoon. He was at work and has gotten progressively worse. Associated with swelling and 8-10 out of 10 pain. Patient states that he had to take off his pants in order to drive home because it hurt so badly. Still passing gas and having bowel movements. Related Data Home Medications Medication Instructions Recorded Confirmed allopurinol 300 mg tablet 300 mg PO DAILY Gout 06/02/18 07/21/23 benazepril 40 mg tablet 40 mg PO DAILY High Blood Pressure 06/02/18 07/21/23 clopidogrel 75 mg tablet 75 mg PO QDAY Blood thinner 09/19/19 07/21/23 metoprolol tartrate 25 mg tablet 25 mg PO BID High Blood Pressure 04/01/23 07/21/23 oxybutynin chloride 5 mg tablet 5 mg PO BID bladder spasm 04/01/23 07/21/23 flecainide 50 mg tablet 50 mg PO Q12H a fib 05/11/23 07/21/23 furosemide 20 mg tablet 20 mg PO DAILY Heart Failure 05/11/23 07/21/23 pantoprazole 40 mg tablet,delayed 40 mg PO DAILY gerd 05/11/23 07/21/23 release rosuvastatin 40 mg tablet (Crestor) 40 mg PO DAILY High Cholesterol 05/11/23 07/21/23 rivaroxaban 15 mg tablet (Xarelto) 15 mg PO DAILY a fib-blood thinner 05/26/23 07/21/23 tadalafil 20 mg tablet (Cialis) 20 mg PO NEEDED PRN * 05/26/23 07/21/23 acetaminophen 325 mg capsule 650 mg PO DAILY Pain 05/29/23 07/21/23 (Tylenol) Previous Rx's Medication Instructions Recorded diclofenac sodium 75 mg 75 mg PO DAILY PRN Pain 30 days #0 04/02/23 tablet,delayed release tabs ketorolac 10 mg tablet 10 mg PO Q8H PRN pain #20 tabs 10/03/23 levofloxacin 750 mg tablet 750 mg PO DAILY 7 days #7 tabs 10/03/23 Allergies Allergy/AdvReac Type Severity Reaction Status Date / Time Sulfa (Sulfonamide Allergy Intermediate Unknown Verified 07/21/23 09:01 Antibiotics) allergy reaction PFSH <Madan Paz MD - Last Filed: 10/03/23 00:00> PFS Disclaimer: The information contained in this section may have been updated after the patient was seen, as this information can be updated by other users. Medical History Atrial fibrillation CAD (coronary artery disease) Carotid artery stenosis COVID-19 virus infection CVA (cerebral vascular accident) Diverticulitis Encounter for pre-operative cardiovascular clearance HHD (hypertensive heart disease) History of CVA (cerebrovascular accident) History of CVA in adulthood History of gastroesophageal reflux (GERD) Prostate enlargement Renal artery stenosis Sleep apnea Surgical History History of colonoscopy History of kidney surgery History of prostate surgery Hx laparoscopic cholecystectomy S/P carotid endarterectomy Family History Other CHF (congestive heart failure) Family history of internal cardiac defibrillator Family history of pacemaker Social History Smoking Status: Unknown if ever smoked second hand exposure: No alcohol intake: never substance use type: denies use current occupational status: employed Travel in the last 8 weeks: None household members: spouse housing: house 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 current occupational exposures/hazards: No caffeine: Yes <Madan Paz MD - Last Filed: 10/03/23 00:00> ROS Obtained: Yes All systems reviewed & no additional complaints except as documented Physical Exam <Madan Paz MD - Last Filed: 10/03/23 00:00> General General appearance: alert and in no apparent distress Head Head exam: atraumatic and normocephalic Eye Eye exam: Present normal appearance, PERRL and EOMI ENT ENT exam: Present mucous membranes moist Neck Neck exam: Present normal inspection, full ROM and trachea midline Respiratory Respiratory exam: Absent respiratory distress, wheezes, stridor, accessory muscle use or prolonged expiratory phase Cardiovascular Cardiovascular exam: Present normal rhythm Abdominal Exam Abdominal exam: Present soft; Absent distention, tenderness, guarding, rebound or rigidity exam: Present testicular tenderness, scrotal swelling and other (Lateral test icular lie. Patient also has no cremasteric reflex. Significant tenderness to testicle. Concern for right-sided inguinal hernia present, but pain limiting adequate physical exam); Absent normal testicular lie Extremities Exam Extremities exam: Absent edema Neurological Exam Neurological exam: Present alert, oriented X3, CN II-XII intact and normal gait; Absent motor sensory deficit Skin Skin exam: Present warm and dry; Absent diaphoresis or erythema Medical Decision Making <Madan Paz MD - Last Filed: 10/03/23 00:00> Medical Records Medical records reviewed: Yes I reviewed the patient's medical records. Abdirahman Inquiry Pt receiving controlled substance: No Abdirahman was queried for this patient: No Vital Signs: 10/02/23 21:47 Temperature 98.2 F Temperature Source Oral Pulse Rate [Right Brachial] 67 Respiratory Rate 19 Blood Pressure [Right Arm] 153/73 H Blood Pressure Mean [Right Arm] 99 Blood Pressure Source [Right Arm] Automatic Cuff Blood Pressure Position [Right Arm] Sitting 02 Sat by Pulse Oximetry 99 Oxygen Delivery Method Room Air Lab Data Lab Results 10/02/23 22:15: WBC 13.7 H, RBC 4.92, Hgb 15.6, Hct 45.5, MCV 92.6, MCH 31.7 H, MCHC 34.3, RDW 15.6, Plt Count 147, MPV 8.3, Neut % (Auto) 70.2, Lymph % (Auto) 21.4, [place] % (Auto) 7.6, Eos % (Auto) 0.5, Baso % (Auto) 0.3, Neut # (Auto) 9.6 H, Lymph # (Auto) 2.9, [place] # (Auto) 1.0, Eos # (Auto) 0.1, Baso # (Auto) 0.1, Sodium 139, Potassium 3.7, Chloride 103, Carbon Dioxide 32 H, Anion Gap 7.7, BUN 23 H, Creatinine 1.10, Estimated Creat Clear 112, Estimated GFR 69, Est GFR ( Amer) 83, Glucose 96, Lactate 1.2, Calcium 8.7, Total Bilirubin 1.0, AST 31, ALT 25, Alkaline Phosphatase 86, Total Protein 6.9, Albumin 3.9, Glob ulin 3.0, Albumin/Globulin Ratio 1.3 10/02/23 22:40: Urine Color Yellow, Urine Appearance Clear, Urine pH 6.0, Ur Specific [place] 1.025, Urine Protein Negative, Urine Glucose (UA) Negative, Urine Ketones Negative, Urine Blood Negative, Urine Nitrate Negative, Urine Bilirubin Negative, Urine Urobilinogen 0.2, Ur Leukocyte Esterase Trace, Urine RBC None, Urine WBC 3-5, Ur Squamous Epith Cells Occasional, Urine Bacteria None 10/02/23 22:15 10/02/23 22:15 Orders (Tests/Meds): ED MEDICATIONS Generic Name Dose Route Start Last Admin Trade Name Lupilloq PRN Reason Stop Dose Admin Ceftriaxone Sodium 2 gm/ 100 mls @ 200 mls/hr 10/03/23 01:08 10/03/23 01:14 Sodium Chloride IV 10/03/23 01:37 200 mls/hr ONCE ONE Administration Sodium Chloride 10 ml 10/03/23 00:28 10/03/23 00:29 Sodium Chloride 0.9% 10ml Syr (Rad Only) IV 11/02/23 00:27 10 ml NEEDED PRN Administration Maintain IV Site Discontinued Medications Generic Name Dose Route Start Last Admin Trade Name Emely PRN Reason Stop Dose Admin Hydrocodone Bitart/Acetaminophen 1 tab 10/03/23 00:59 10/03/23 01:04 Hydrocodone/Apap 5/325 Mg Tablet PO 10/03/23 01:00 1 tab ONCE ONE Administration Iopamidol 75 ml 10/03/23 00:28 10/03/23 00:29 Iopamidol-370 (76%);100ml Bottle IV 10/03/23 00:29 75 ml ONCE ONE Administration Ketorolac Tromethamine 15 mg 10/02/23 22:35 10/02/23 22:39 Ketorolac 30mg/Ml Vial IV 10/02/23 22:36 15 mg ONCE ONE Administration Levofloxacin 750 mg 10/03/23 01:08 10/03/23 01:14 Levofloxacin 750 Mg Tablet PO 10/03/23 01:09 750 mg ONCE ONE Administration ORDERS Category Date Time Status CT abdomen pelvis w con Stat Cat Scan 10/02/23 23:48 Completed Complete Blood Count Auto Diff Stat Lab 10/02/23 22:15 Completed Comprehensive Metabolic Panel Stat Lab 10/02/23 22:15 Completed Lactic Acid Stat Lab 10/02/23 22:15 Completed Urinalysis and Microscopic Stat Lab 10/02/23 22:40 Completed Blood Culture Stat Micro 10/02/23 22:00 Ordered scrotum US [US Testicular] Stat Ultrasound 10/02/23 22:29 Taken Medical Decision Narrative: 58-year-old male history of CAD on aspirin and Plavix, A-fib status post Watchman procedure still taking Xarelto, CVA I with no residual deficits, pretension, hyperlipidemia, presenting with testicular pain. Started today in the afternoon. He was at work and has gotten progressively worse. Associated with swelling and 8-10 out of 10 pain. Patient states that he had to take off his pants in order to drive home because it hurt so badly. Still passing gas and having bowel movements. History obtained with patient and . Physical exam concerning for significant right testicular pain and swelling. Patient has what feels like right-sided inguinal hernia with significant tenderness. Unable to attempt reduction secondary to pain. Patient's right testicle also and mildly oblique lie. No cremasteric reflex. Differential diagnosis includes incarcerated or strangulated inguinal hernia, testicular torsion, nephrolithiasis, UTI, orchitis, among others. Independent interpretation of workup demonstrates leukocytosis 13.7 with neutrophilic shift. Patient also has normal chemistry, normal lactate and urinalysis without concern for UTI. Prior to imaging, care had not oncoming physician, Dr. Laguna. <Yelena Laguna, DO - Last Filed: 10/03/23 01:29> Vital Signs: 10/02/23 21:47 Temperature 98.2 F Temperature Source Oral Pulse Rate [Right Brachial] 67 Respiratory Rate 19 Blood Pressure [Right Arm] 153/73 H Blood Pressure Mean [Right Arm] 99 Blood Pressure Source [Right Arm] Automatic Cuff Blood Pressure Position [Right Arm] Sitting 02 Sat by Pulse Oximetry 99 Oxygen Delivery Method Room Air Lab Data Lab Results 10/02/23 22:15: WBC 13.7 H, RBC 4.92, Hgb 15.6, Hct 45.5, MCV 92.6, MCH 31.7 H, MCHC 34.3, RDW 15.6, Plt Count 147, MPV 8.3, Neut % (Auto) 70.2, Lymph % (Auto) 21.4, [place] % (Auto) 7.6, Eos % (Auto) 0.5, Baso % (Auto) 0.3, Neut # (Auto) 9.6 H, Lymph # (Auto) 2.9, [place] # (Auto) 1.0, Eos # (Auto) 0.1, Baso # (Auto) 0.1, Sodium 139, Potassium 3.7, Chloride 103, Carbon Dioxide 32 H, Anion Gap 7.7, BUN 23 H, Creatinine 1.10, Estimated Creat Clear 112, Estimated GFR 69, Est GFR ( Amer) 83, Glucose 96, Lactate 1.2, Calcium 8.7, Total Bilirubin 1.0, AST 31, ALT 25, Alkaline Phosphatase 86, Total Protein 6.9, Albumin 3.9, Globulin 3.0, Albumin/Globulin Ratio 1.3 10/02/23 22:40: Urine Color Yellow, Urine Appearance Clear, Urine pH 6.0, Ur Specific [place] 1.025, Urine Protein Negative, Urine Glucose (UA) Negative, Urine Ketones Negative, Urine Blood Negative, Urine Nitrate Negative, Urine Bilirubin Negative, Urine Urobilinogen 0.2, Ur Leukocyte Esterase Trace, Urine RBC None, Urine WBC 3-5, Ur Squamous Epith Cells Occasional, Urine Bacteria None Orders (Tests/Meds): ED MEDICATIONS Generic Name Dose Route Start Last Admin Trade Name Freq PRN Reason Stop Dose Admin Ceftriaxone Sodium 2 gm/ 100 mls @ 200 mls/hr 10/03/23 01:08 10/03/23 01:14 Sodium Chloride IV 10/03/23 01:37 200 mls/hr ONCE ONE Administration Sodium Chloride 10 ml 10/03/23 00:28 10/03/23 00:29 Sodium Chloride 0.9% 10ml Syr (Rad Only) IV 11/02/23 00:27 10 ml NEEDED PRN Administration Maintain IV Site Discontinued Medications Generic Name Dose Route Start Last Admin Trade Name Freq PRN Reason Stop Dose Admin Hydrocodone Bitart/Acetaminophen 1 tab 10/03/23 00:59 10/03/23 01:04 Hydrocodone/Apap 5/325 Mg Tablet PO 10/03/23 01:00 1 tab ONCE ONE Administration Iopamidol 75 ml 10/03/23 00:28 10/03/23 00:29 Iopamidol-370 (76%);100ml Bottle IV 10/03/23 00:29 75 ml ONCE ONE Administration Ketorolac Tromethamine 15 mg 10/02/23 22:35 10/02/23 22:39 Ketorolac 30mg/Ml Vial IV 10/02/23 22:36 15 mg ONCE ONE Administration Levofloxacin 750 mg 10/03/23 01:08 10/03/23 01:14 Levofloxacin 750 Mg Tablet PO 10/03/23 01:09 750 mg ONCE ONE Administration ORDERS Category Date Time Status CT abdomen pelvis w con Stat Cat Scan 10/02/23 23:48 Completed Complete Blood Count Auto Diff Stat Lab 10/02/23 22:15 Completed Comprehensive Metabolic Panel Stat Lab 10/02/23 22:15 Completed Lactic Acid Stat Lab 10/02/23 22:15 Completed Urinalysis and Microscopic Stat Lab 10/02/23 22:40 Completed Blood Culture Stat Micro 10/02/23 22:00 Ordered scrotum US [US Testicular] Stat Ultrasound 10/02/23 22:29 Taken Medical Decision Narrative: 58-year-old male history of CAD on aspirin and Plavix, A-fib status post Watchman procedure still taking Xarelto, CVA I with no residual deficits, pretension, hyperlipidemia, presenting with testicular pain. Started today in the afternoon. He was at work and has gotten progressively worse. Associated with swelling and 8-10 out of 10 pain. Patient states that he had to take off his pants in order to drive home because it hurt so badly. Still passing gas and having bowel movements. History obtained with patient and . Physical exam concerning for significant right testicular pain and swelling. Patient has what feels like right-sided inguinal hernia with significant tenderness. Unable to attempt reduction secondary to pain. Patient's right testicle also and mildly oblique lie. No cremasteric reflex. Differential diagnosis includes incarcerated or strangulated inguinal hernia, testicular torsion, nephrolithiasis, UTI, orchitis, among others. Independent interpretation of workup demonstrates leukocytosis 13.7 with neutrophilic shift. Patient also has normal chemistry, normal lactate and urinalysis without concern for UTI. Prior to imaging, care had not oncoming physician, Dr. Laguna. Laguna, DO: On my assessment of the patient, he is resting comfortably. I independently interpreted ultrasound and CT prior to radiology read and noted inflammation concerning for epididymitis. Radiology noted epididymoorchitis. Please see their read for final interpretation. No other acute concerns at this time. Given this, patient was given IV Rocephin as well as oral Levaquin. He had continued pain, he was given oral Tylenol. No concerns for torsion based on ultrasound. Hernia contains fat, so do not feel that this emergently requires evaluation. After antibiotics, patient was deemed to be appropriate for discharge. He has a urologist in [place] who he sees, so I instructed to follow up with him soon as possible. He was given prescriptions for Levaquin and Toradol and instructions for close a patient follow-up and supportive management. He was discharged with strict return precautions. Critical Care <Madan Paz MD - Last Filed: 10/03/23 00:00> Critical Care Time Critical Care Time: No
--- NOTE | 2023-10-03 00:04 | PC.NURSE ---
Pt back from [facility]
--- NOTE | 2023-10-03 00:07 | PC.NURSE ---
pt. back from [facility]
[2023-10-03] MEDS: IOPAMIDOL-370 (76%);100ML BOTTLE 75 ML IV (00:29)
[2023-10-03] MEDS: SODIUM CHLORIDE 0.9% 10ML SYR (RAD ONLY) 10 ML IV (00:29)
[2023-10-03] MEDS: HYDROCODONE/APAP 5/325 MG TABLET 1 TAB PO (01:04)
[2023-10-03] MEDS: CEFTRIAXONE SODIUM 2 GM in 0.9 % SODIUM CHLORIDE 100 ML IV (01:14)
[2023-10-03] MEDS: levoFLOXacin 750 MG TABLET PO (01:14)
[2023-10-03 01:59] VITALS: BP 148/71; PULSE 69; RESP 18; TEMP 36.7; O2SAT 99
== END 2023-10-03 01:59 | disposition home or self-care (01) ==
PROVIDERS: Emergency Provider Emergency Medicine; PCP Nurse Practitioner Family
DX: N45.3 Epididymo-orchitis (principal); R10.2 Pelvic and perineal pain; I25.10 Atherosclerotic heart disease of native coronary artery without angina pectoris; I48.91 Unspecified atrial fibrillation; E78.5 Hyperlipidemia, unspecified; Z79.01 Long term (current) use of anticoagulants; I11.9 Hypertensive heart disease without heart failure; Z79.02 Long term (current) use of antithrombotics/antiplatelets; Z79.82 Long term (current) use of aspirin; Z86.73 Personal history of transient ischemic attack (TIA), and cerebral infarction without residual deficits
CPT/HCPCS: 74177; 76870; 80053; 81001; 83605; 85025; 87040; 96365; 96375; 99285; J0696; Q9967

== ENCOUNTER 2023-11-05 19:13 | Emergency (ER) | payer BC, SELFPAY ==
[2023-11-05 19:25] VITALS: BP 154/97; PULSE 72; RESP 17; TEMP 36.9; O2SAT 97; BMI 33.1
--- NOTE | 2023-11-05 19:39 | EXP.UTC ---
Discharge Plan Disposition Patient Disposition: Home, Self-Care Condition: Good Prescriptions Prescriptions: No Action oxybutynin chloride 5 mg tablet 5 mg PO BID metoprolol tartrate 25 mg Tablet 25 mg PO BID diclofenac sodium 75 mg tablet,delayed release (DR/EC) 75 mg PO DAILY PRN (Reason: Pain) 30 Days Qty: 0 0RF tadalafil [Cialis] 20 mg Tablet 20 mg PO NEEDED PRN (Reason: *) Xarelto 15 mg tablet 15 mg PO DAILY Patient Comments: TAKE 1 TABLET BY MOUTH ONCE DAILY acetaminophen [Tylenol] 325 mg Capsule 650 mg PO DAILY levofloxacin 750 mg tablet 750 mg PO DAILY 7 Days Qty: 7 0RF ketorolac 10 mg tablet 10 mg PO Q8H PRN (Reason: pain) Qty: 20 0RF allopurinol 300 MG tablet 300 mg PO DAILY benazepril 40 MG tablet 40 mg PO DAILY clopidogrel 75 MG tablet 75 mg PO QDAY flecainide 50 mg Tablet 50 mg PO Q12H pantoprazole 40 mg tablet,delayed release (DR/EC) 40 mg PO DAILY furosemide 20 mg tablet 20 mg PO DAILY rosuvastatin [Crestor] 40 mg tablet 40 mg PO DAILY Referrals Follow up/Referrals: Shakira Todd [Primary Care Provider] - See instructions Activity Restrictions/Add. Instructions Additional Instructions/Restrictions: Drink plenty of fluids. Take tylenol for pain or fever. Follow up with your regular doctor. Please call them in the morning to get a follow up appointment. GO TO THE ER FOR ANY WORSENING SYMPTOMS Clinical Impressions Clinical Impression: Muscle spasm, Muscle cramp, Myalgia Instructions Patient Instructions: DI for Muscle Spasm Discharge ED Provider: Jamar Flores [facility] General Stated complaint: muscle spasms Mode of Arrival: Ambulatory Source of Information: Patient Limitations: No Limitations Time Seen by Provider: 11/05/23 19:52 Description of Symptoms (Recalled from Triage Doc. by RN): PATIENT STATES HE HAS BEEN HAVING INTERMITTEN BODY SPASMS TO LEGS, HAND, ARMS, BACK, ABDOMEN, JAW AND CHEST THAT STARTED 2 WEEKS AGO. HE STATES SPASMS STARTED AFTER HE HAD DIARRHEA AND VOMITING FOR 3 DAYS. HEENT Symptoms (Recalled from RN notes): No Resp Symptoms (Recalled from RN notes): No Skin Symptoms (Recalled from RN notes): No MS Symptoms (Recalled from RN notes): Yes Functional Status (Recalled from RN notes): WNL History of Present Illness Provider Complaint: He states that around 2 weeks ago he got a bad stomach virus. He states that he had several days of vomiting and diarrhea. He also began have leg cramps and muscle spasms frequently then. He states that since then he has continued to have frequent muscle cramps in his legs, arms and back. He takes oral lasix daily. He denies any chest pain, shortness of breath, tachycardia, and any weakness or numbness. Related Data Home Medications Medication Instructions Recorded Confirmed allopurinol 300 mg tablet 300 mg PO DAILY Gout 06/02/18 07/21/23 benazepril 40 mg tablet 40 mg PO DAILY High Blood Pressure 06/02/18 07/21/23 clopidogrel 75 mg tablet 75 mg PO QDAY Blood thinner 09/19/19 07/21/23 metoprolol tartrate 25 mg tablet 25 mg PO BID High Blood Pressure 04/01/23 07/21/23 oxybutynin chloride 5 mg tablet 5 mg PO BID bladder spasm 04/01/23 07/21/23 flecainide 50 mg tablet 50 mg PO Q12H a fib 05/11/23 07/21/23 furosemide 20 mg tablet 20 mg PO DAILY Heart Failure 05/11/23 07/21/23 pantoprazole 40 mg tablet,delayed 40 mg PO DAILY gerd 05/11/23 07/21/23 release rosuvastatin 40 mg tablet (Crestor) 40 mg PO DAILY High Cholesterol 05/11/23 07/21/23 rivaroxaban 15 mg tablet (Xarelto) 15 mg PO DAILY a fib-blood thinner 05/26/23 07/21/23 tadalafil 20 mg tablet (Cialis) 20 mg PO NEEDED PRN * 05/26/23 07/21/23 acetaminophen 325 mg capsule 650 mg PO DAILY Pain 05/29/23 07/21/23 (Tylenol) Previous Rx's Medication Instructions Recorded diclofenac sodium 75 mg 75 mg PO DAILY PRN Pain 30 days #0 04/02/23 tablet,delayed release tabs ketorolac 10 mg tablet 10 mg PO Q8H PRN pain #20 tabs 10/03/23 levofloxacin 750 mg tablet 750 mg PO DAILY 7 days #7 tabs 10/03/23 Allergies Allergy/AdvReac Type Severity Reaction Status Date / Time Sulfa (Sulfonamide Allergy Intermediate Unknown Verified 07/21/23 09:01 Antibiotics) allergy reaction Worker's Comp Is this a Worker's Comp case?: No [facility] Disclaimer: The information contained in this section may have been updated after the patient was seen, as this information can be updated by other users. Medical History Atrial fibrillation CAD (coronary artery disease) Carotid artery stenosis COVID-19 virus infection CVA (cerebral vascular accident) Diverticulitis Encounter for pre-operative cardiovascular clearance HHD (hypertensive heart disease) History of CVA (cerebrovascular accident) History of CVA in adulthood History of gastroesophageal reflux (GERD) Prostate enlargement Renal artery stenosis Sleep apnea Surgical History History of colonoscopy History of kidney surgery History of prostate surgery Hx laparoscopic cholecystectomy S/P carotid endarterectomy Family History Other CHF (congestive heart failure) Family history of internal cardiac defibrillator Family history of pacemaker Social History Smoking Status: Unknown if ever smoked second hand exposure: No alcohol intake: never substance use type: denies use current occupational status: employed Travel in the last 8 weeks: None household members: spouse housing: house 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 current occupational exposures/hazards: No caffeine: Yes ROS Obtained: Yes All systems reviewed & no additional complaints except as documented Constitutional Constitutional: Denies chills, Denies fever(s) and Denies headache(s) Eyes Eyes: Denies eye discharge and Denies loss of vision ENT Ears, Nose, Mouth, and Throat: Denies dizziness, Denies otalgia, Denies headache(s), Denies neck pain and Denies sore throat Cardiovascular Cardiovascular: Denies chest pain, Denies edema, Denies leg edema, Denies lightheadedness and Denies orthopnea Respiratory Respiratory: Denies shortness of breath, Denies chest congestion, Denies cough, Denies stridor and Denies wheezing Gastrointestinal Gastrointestingal: Reports as per HPI; Denies abdominal pain, cramping, nausea or vomiting Genitourinary Male Genitourinary: Denies difficulty urinating, Denies testicular pain, Denies urinary frequency, Denies urinary hesitancy and Denies urinary incontinence Musculoskeletal Musculoskeletal: Reports as per HPI, Denies back pain, Denies joint stiffness, Denies joint swelling, Denies muscle weakness, Reports myalgias, Denies neck pain, Denies numbness and Denies stiffness Integumentary/Breasts Skin/Breast: Denies rash Neurologic Neurologic: Denies dizziness, Denies focal weakness, Denies headache(s), Denies loss of vision, Denies memory loss, Denies numbness, Denies other visual disturbances, Denies paresthesias, Denies radicular pain and Denies restless legs Allergic/Immunologic Allergic/Immunologic: Denies wheezing Physical Exam General General appearance: alert and in no apparent distress Head Head exam: atraumatic, normocephalic and normal inspection Eye Eye exam: Present normal appearance, PERRL and EOMI ENT ENT exam: Present normal exam, normal oropharynx, mucous membranes moist, TM's normal bilaterally and normal external ear exam Neck Neck exam: Present normal inspection, full ROM and trachea midline; Absent meningismus or lymphadenopathy Chest Chest inspection: Present normal inspection and symmetric chest wall rise; Absent tenderness Respiratory Respiratory exam: Present normal lung sounds bilaterally; Absent respiratory distress Cardiovascular Cardiovascular exam: Present regular rate and normal rhythm; Absent JVD Abdominal Exam Abdominal exam: Present soft and normal bowel sounds; Absent distention, tenderness or guarding Extremities Exam Extremities exam: Present normal inspection, full ROM and normal capillary refill; Absent calf tenderness Back Exam Back exam: Present normal inspection; Absent tenderness Neurological Exam Neurological exam: Present alert, oriented X3, CN II-XII intact, normal gait and reflexes normal; Absent motor sensory deficit Expanded Neurological Exam Speech: Present fluid speech Cranial nerves: Normal: EOM function (II, III, IV, ), facial sensation (V), facial palsy (VII), gag reflex (IX), spinal accessory function (XI) and tongue deviation (XII) Cerebellar function: normal gait Motor strength - LUE: 5/5 Motor strength - RUE: 5/5 Motor strength - LLE: 5/5 Motor strength - RLE: 5/5 Sensory exam upper extremity: Normal: light touch and 2 point discrimination Sensory exam lower extremity: Normal: light touch and 2 point discrimination DTR: 2+: biceps (L), biceps (R), patellar (L), patellar (R), Achilles tendon (L) and Achilles tendon (R) Spinal cord function: Absent saddle anesthesia Psychiatric Psychiatric exam: Present normal affect and normal mood Skin Skin exam: Present warm, dry, intact and normal color; Absent rash or erythema Lymphatic Lymphatic Findings: no adenopathy Medical Decision Making Medical Records Medical records reviewed: No I reviewed the patient's medical records. Abdirahman Inquiry Pt receiving controlled substance: No Vital Signs: 11/05/23 19:25 Temperature 98.5 F Temperature Source Oral Pulse Rate [Left Brachial] 72 Respiratory Rate 17 Blood Pressure [Left Arm] 154/97 H Blood Pressure Mean [Left Arm] 116 Blood Pressure Source [Left Arm] Automatic Cuff Blood Pressure Position [Left Arm] Sitting 02 Sat by Pulse Oximetry 97 Oxygen Delivery Method Room Air Lab Data Lab results reviewed: Yes I reviewed the patient's lab results. 11/05/23 19:45 11/05/23 19:45
--- NOTE | 2023-11-05 19:48 | ECG_ITS ---
APPROVED REPORT Exam: Resting ECG HR:68 bpm ECG Measurements Heart Rate 68 AXES ID 156 P 44 QRSd 82 QRS 83 QT 368 T -8 QTc 386 Conclusion SINUS RHYTHM NONSPECIFIC T-WAVE ABNORMALITY Electronically signed by : ANA MARIA GARZON, 11/08/2023 15:37:47
[2023-11-05 20:04] LABS: Apearance,Urine Clear (Clear); Bilirubin,Urine Negative (Negative); Blood, Urine Trace (Negative); Color,Urine Amber (Yellow); Glucose,Urine (UA) Negative (Negative); Ketones,Urine Negative (Negative); Protein,Urine 1+ (Negative); Specific Gravity, Urine >= 1.030 (1.005-1.030); UTC Leukocyte Esterase,Urine Negative (Negative); UTC Nitrate,Urine Negative (Negative); Urobilinogen,Urine 0.2 EU/dl (0.2)
[2023-11-05 20:04] LABS: Basophils # 0.1 K/mm3 (0-0.2); Basophils % 1.4 % (0.1-2.0); Eosinophils # 0.2 K/mm3 (0.0-0.4); Hematocrit 51.7 % (42.0-52.0); Hemoglobin 17.1 g/dL (14.1-18.0); Lymphocytes # 2.4 K/mm3 (0.7-4.5); Lymphocytes % 26.8 % (10-50); Mean Corpuscular Hemoglobin 31.9 pg (27.0-31.2); Mean Corpuscular Volume 96.7 fl (80-94); Mean Platelet Volume 8.4 fl (7.4-10.4); Monocytes # 0.5 K/mm3 (0.1-1.0); Monocytes % 5.8 % (1.7-9.3); Neutrophils # 5.7 K/mm3 (1.8-7.8); Neutrophils % 64.1 % (37.0-80.0); Platelet Count 150 K/mm3 (142-424); Red Blood Count 5.35 M/mm3 (4.60-6.20); Red Cell Distribution Width 14.4 % (11.5-17.5)
[2023-11-05 20:11] LABS: Chloride 103 mmol/L (98-107); Potassium 4.5 mmoL/L (3.5-5.1); Sodium 135 mmol/L (136-145)
[2023-11-05 20:14] LABS: Alanine Aminotransferase 44 U/L (12-78); Albumin Level 4.2 g/dl (3.5-5.0); Albumin/Globulin Ratio 1.4 (1.1-1.8); Alkaline Phosphatase 79 U/L (38-126); Anion Gap 10.5 mEq/L (5-15); Aspartate Amino Transferase 44 U/L (17-59); Bilirubin,Total 0.9 mg/dl (0.2-1.3); Blood Urea Nitrogen 24 mg/dl (9-20); Calcium 9.2 mg/dl (8.4-10.2); Carbon Dioxide 26 mmol/L (22.0-30.0); Creatine Kinase 138 U/L (55-170); Creatinine Clearance Estimated 110 mL/min (50-200); Estimated Glomerular Filt Rate 69 ml/min (>60); GFR (African American) 83 ML/MIN (>60); Globulin 2.9 g/dL (1.3-3.2); Glucose 187 mg/dl (74-100); Phosphorous 3.7 mg/dl (2.5-4.5); Total Protein,Serum 7.1 g/dl (6.3-8.2)
[2023-11-05 20:15] LABS: Magnesium 2.3 mg/dl (1.6-2.3)
[2023-11-05 20:36] VITALS: BP 154/97; PULSE 72; RESP 17; TEMP 36.9; O2SAT 97
[2023-11-05 20:45] LABS: Thyroid Stimulating Hormone 2.68 uIU/mL (0.465-4.68)
[2023-11-05 20:50] LABS: Free T4 (Free Thyroxine) 1.02 ng/dl (0.78-2.19)
== END 2023-11-05 20:48 | disposition home or self-care (01) ==
PROVIDERS: Emergency Provider Nurse Practitioner Family; PCP Nurse Practitioner Family
DX: M62.838 Other muscle spasm (principal); R19.7 Diarrhea, unspecified; R11.10 Vomiting, unspecified; M62.830 Muscle spasm of back; I48.91 Unspecified atrial fibrillation; I25.10 Atherosclerotic heart disease of native coronary artery without angina pectoris; I65.29 Occlusion and stenosis of unspecified carotid artery; Z86.73 Personal history of transient ischemic attack (TIA), and cerebral infarction without residual deficits; I11.9 Hypertensive heart disease without heart failure; G47.30 Sleep apnea, unspecified
CPT/HCPCS: 80053; 81003; 82550; 83735; 84100; 84439; 84443; 85025; 93005; 99212; 99214; G0463

== ENCOUNTER 2023-11-15 11:46 | Emergency (ER) | payer BC, SELFPAY ==
[2023-11-15 11:48] VITALS: BP 138/77; PULSE 83; RESP 16; TEMP 36.2; O2SAT 96; BMI 33.7
[2023-11-15 12:00] VITALS: BP 138/75; PULSE 58; O2SAT 97
[2023-11-15 12:30] VITALS: BP 155/110; PULSE 65; RESP 20; O2SAT 98
--- NOTE | 2023-11-15 12:51 | ED_ITS ---
Discharge Plan Disposition Patient Disposition: Home, Self-Care Prescriptions Prescriptions: No Action doxycycline monohydrate 100 mg tablet 100 mg PO DAILY Patient Comments: TAKE 1 TABLET BY MOUTH ONCE DAILY WITH A FULL GLASS OF WATER. DO NOT LIE DOWN FOR AT LEAST 30 MINUTES AFTER (START DOXYCYCLINE AFTER LEVAQUIN COMPLETED) oxybutynin chloride 5 mg tablet 5 mg PO BID tadalafil [Cialis] 20 mg Tablet 20 mg PO NEEDED PRN (Reason: *) acetaminophen [Tylenol] 325 mg Capsule 650 mg PO DAILY Xarelto 15 mg tablet 10 mg PO DAILY Patient Comments: TAKE 1 TABLET BY MOUTH ONCE DAILY allopurinol 300 MG tablet 300 mg PO DAILY benazepril 40 MG tablet 40 mg PO DAILY clopidogrel 75 MG tablet 75 mg PO QDAY pantoprazole 40 mg tablet,delayed release (DR/EC) 40 mg PO DAILY furosemide 20 mg tablet 20 mg PO DAILY rosuvastatin [Crestor] 40 mg tablet 40 mg PO DAILY Referrals Follow up/Referrals: Shakira Todd [Primary Care Provider] - See instructions Activity Restrictions/Add. Instructions Additional Instructions/Restrictions: No emergent medical condition identified with your muscle spasms today. I agree with following up with a neurologist as we cannot rule out a neuromuscular disorder. It is possible you are dehydrated given some of your laboratory pattern. Lastly your bilateral anterior epistaxis or nosebleeds were treated with silver nitrate cautery. As long as your nose continues to not bleed you do not need to follow-up with ENT. I would recommend a humidifier as discussed. Clinical Impressions Clinical Impression: Muscle spasm, Acute anterior epistaxis Discharge ED Provider: Rayne Villanueva General Adult HPI General Chief complaint: PAIN Stated complaint: body cramps, bloody nose Time Seen by Provider: 11/15/23 12:22 Mode of Arrival: Ambulatory Source of Information: Patient Limitations: No Limitations Description of Symptoms (Recalled from ER Triage Doc. by RN): Patient complaint of phylicia horses in his legs when he lays down for the past 3 weeks. States he has also had issues with his nose bleeding off and on as well. States he was seen by his ortho doctor and prescribed Robaxin with no relief, has a follow up with neurology and was also seen in a clinic where they checked his electrolytes and did an ekg and everything was normal. History of Present Illness HPI narrative: Patient is a 58-year-old male presented with multiple complaints. Dates that he is on Xarelto and has had bilateral nosebleeds over the last several days. States that he has very dry crusted mucus when he wakes up in the morning and feels them often they subsequently bleed. Patient also complains of diffuse charley horses that have been intermittent over the last several weeks. Was actually at an urgent treatment clinic about 10 days ago with labs that were normal. No nausea vomiting or diarrhea. He is on diuretics. No change in medications recently. He has outpatient referral to neurology. Also saw his primary care doctor and orthopedic surgeon during this time was recently prescribed Robaxin without any significant improvement in symptoms. Related Data Home Medications Medication Instructions Recorded Confirmed allopurinol 300 mg tablet 300 mg PO DAILY Gout 06/02/18 07/21/23 benazepril 40 mg tablet 40 mg PO DAILY High Blood Pressure 06/02/18 07/21/23 clopidogrel 75 mg tablet 75 mg PO QDAY Blood thinner 09/19/19 07/21/23 oxybutynin chloride 5 mg tablet 5 mg PO BID bladder spasm 04/01/23 07/21/23 furosemide 20 mg tablet 20 mg PO DAILY Heart Failure 05/11/23 07/21/23 pantoprazole 40 mg tablet,delayed 40 mg PO DAILY gerd 05/11/23 07/21/23 release rosuvastatin 40 mg tablet (Crestor) 40 mg PO DAILY High Cholesterol 05/11/23 07/21/23 tadalafil 20 mg tablet (Cialis) 20 mg PO NEEDED PRN * 05/26/23 07/21/23 acetaminophen 325 mg capsule 650 mg PO DAILY Pain 05/29/23 07/21/23 (Tylenol) doxycycline monohydrate 100 mg 100 mg PO DAILY 11/12/23 11/12/23 tablet rivaroxaban 15 mg tablet (Xarelto) 10 mg PO DAILY a fib-blood thinner 11/12/23 11/12/23 Allergies Allergy/AdvReac Type Severity Reaction Status Date / Time Sulfa (Sulfonamide Allergy Intermediate Unknown Verified 11/12/23 09:15 Antibiotics) allergy reaction [id number] Disclaimer: The information contained in this section may have been updated after the patient was seen, as this information can be updated by other users. Medical History Sleep apnea History of gastroesophageal reflux (GERD) Atrial fibrillation CVA (cerebral vascular accident) Diverticulitis COVID-19 virus infection History of CVA (cerebrovascular accident) Encounter for pre-operative cardiovascular clearance Carotid artery stenosis HHD (hypertensive heart disease) CAD (coronary artery disease) Renal artery stenosis History of CVA in adulthood Prostate enlargement Surgical History History of prostate surgery History of kidney surgery History of colonoscopy S/P carotid endarterectomy Hx laparoscopic cholecystectomy Family History Other CHF (congestive heart failure) Family history of internal cardiac defibrillator Family history of pacemaker Social History Smoking Status: Unknown if ever smoked second hand exposure: No alcohol intake: never substance use type: denies use current occupational status: employed Travel in the last 8 weeks: None household members: spouse housing: house 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 current occupational exposures/hazards: No caffeine: Yes ROS Obtained: Yes All systems reviewed & no additional complaints except as documented Physical Exam General General appearance: alert and in no apparent distress ENT ENT exam: Present other (Bilateral anterior nare epistaxis that is hemostatic but friable mucosa) Respiratory Respiratory exam: Present normal lung sounds bilaterally Cardiovascular Cardiovascular exam: Present regular rate and normal rhythm Neurological Exam Neurological exam: Present alert and oriented X3 Medical Decision Making Abdirahman Inquiry Pt receiving controlled substance: No Vital Signs: 11/15/23 11:48 11/15/23 12:00 11/15/23 12:30 Temperature 97.2 F L Temperature Source Axillary Pulse Rate 58 L 65 Pulse Rate [Radial] 83 Respiratory Rate 16 20 Blood Pressure 138/75 155/110 H Blood Pressure [Right Arm] 138/77 Blood Pressure Mean 120 Blood Pressure Mean [Right Arm] 97 Blood Pressure Source [Right Arm] Automatic Cuff Blood Pressure Position [Right Arm] Sitting 02 Sat by Pulse Oximetry 96 97 98 Oxygen Delivery Method Room Air Room Air 11/15/23 13:01 11/15/23 13:30 Temperature Temperature Source Pulse Rate 58 L 60 Pulse Rate [Radial] Respiratory Rate 20 16 Blood Pressure 135/77 140/77 Blood Pressure [Right Arm] Blood Pressure Mean 96 92 Blood Pressure Mean [Right Arm] Blood Pressure Source [Right Arm] Blood Pressure Position [Right Arm] 02 Sat by Pulse Oximetry 98 97 Oxygen Delivery Method Lab Data Lab results reviewed: Yes I reviewed the patient's lab results. Lab Results 11/15/23 12:47: WBC 8.8, RBC 5.35, Hgb 17.5, Hct 51.3, MCV 95.9 H, MCH 32.8 H, MCHC 34.2, RDW 14.3, Plt Count 157, MPV 8.3, Neut % (Auto) 72.4, Lymph % (Auto) 15.8, [place] % (Auto) 6.6, Eos % (Auto) 2.3, Baso % (Auto) 2.9 H, Neut # (Auto) 6.4, Lymph # (Auto) 1.4, [place] # (Auto) 0.6, Eos # (Auto) 0.2, Baso # (Auto) 0.3 H, Sodium 138, Potassium 4.6, Chloride 105, Carbon Dioxide 28, Anion Gap 9.6, B UN 26 H, Creatinine 1.30 H, Estimated Creat Clear 95, Estimated GFR 57 L, Est GFR ( Amer) 69, Glucose 125 H, Calcium 9.8, Phosphorus 4.4, Magnesium 2.2, Total Bilirubin 1.0, AST 44, ALT 36, Alkaline Phosphatase 82, Total Creatine Kinase 110, Total Protein 7.4, Albumin 4.1, Globulin 3.3 H, Albumin/Globulin Ratio 1.2 11/15/23 12:47 11/15/23 12:47 Orders (Tests/Meds): ED MEDICATIONS Discontinued Medications Generic Name Dose Route Start Last Admin Trade Name Freq PRN Reason Stop Dose Admin Lactated Ringer's 1,000 mls @ 999 mls/hr 11/15/23 12:45 11/15/23 12:55 Lactated Ringer's 1000 Ml Bag IV 11/15/23 13:45 999 mls/hr .[id number] TAMMY Administration ORDERS Category Date Time Status CBC w/Auto Diff [Complete Blood Count Auto Diff] Stat Lab 11/15/23 12:47 Completed CK [Creatine Kinase] Stat Lab 11/15/23 12:47 Completed CMP [Comprehensive Metabolic Panel] Stat Lab 11/15/23 12:47 Completed Magnesium Stat Lab 11/15/23 12:47 Completed Phosphorous Stat Lab 11/15/23 12:47 Completed Medical Decision Narrative: Patient with above history presenting today with diffuse intermittent muscle cramps. Will give him IV fluids and check electrolytes and a CK. He also could have a possible neuromuscular disorder that is manifesting itself at this point he has neurology follow-up with I agree with. Bilateral anterior epistaxis was controlled with silver nitrate. He has been advised to humidify his nose in the future. Will reassess in likely will be discharged. Reassessment 1:51 PM patient remains very stable sleeping comfortably. Does have a mild elevation in BUN/creatinine ratio possibly prerenal could be dehydrated but he does not feel significantly better with IV fluids so cannot definitively state this. No significant electrolyte abnormalities. Labs otherwise unremarkable. Nose continues to be hemostatic no indication for following up with ENT regarding this. Patient was discharged in stable condition with advised to continue and keep his outpatient neurology referral. Procedures Epistaxis Control Time Out Performed: Yes Nostril: bilateral Direct Inspection: yes Cautery Used: silver nitrate Patient Tolerated Procedure: well and no complications Critical Care Critical Care Time Critical Care Time: No
[2023-11-15] MEDS: LACTATED RINGERS 1000ML 1,000 ML 999 ML IV (12:55)
[2023-11-15 13:00] LABS: Basophils # 0.3 K/mm3 (0-0.2); Basophils % 2.9 % (0.1-2.0); Eosinophils # 0.2 K/mm3 (0.0-0.4); Eosinophils % 2.3 % (0.1-12.0); Hematocrit 51.3 % (42.0-52.0); Hemoglobin 17.5 g/dL (14.1-18.0); Lymphocytes # 1.4 K/mm3 (0.7-4.5); Lymphocytes % 15.8 % (10-50); Mean Corpuscular HGB Conc 34.2 g/dL (31.8-35.4); Mean Corpuscular Hemoglobin 32.8 pg (27.0-31.2); Mean Corpuscular Volume 95.9 fl (80-94); Mean Platelet Volume 8.3 fl (7.4-10.4); Monocytes # 0.6 K/mm3 (0.1-1.0); Monocytes % 6.6 % (1.7-9.3); Neutrophils # 6.4 K/mm3 (1.8-7.8); Neutrophils % 72.4 % (37.0-80.0); Platelet Count 157 K/mm3 (142-424); Red Blood Count 5.35 M/mm3 (4.60-6.20); Red Cell Distribution Width 14.3 % (11.5-17.5); White Blood Count 8.8 K/mm3 (4.8-10.8)
[2023-11-15 13:01] VITALS: BP 135/77; PULSE 58; RESP 20; O2SAT 98
[2023-11-15 13:09] LABS: Chloride 105 mmol/L (98-107)
[2023-11-15 13:10] LABS: Potassium 4.6 mmoL/L (3.5-5.1); Sodium 138 mmol/L (136-145)
[2023-11-15 13:12] LABS: Alanine Aminotransferase 36 U/L (12-78); Alkaline Phosphatase 82 U/L (38-126); Anion Gap 9.6 mEq/L (5-15); Aspartate Amino Transferase 44 U/L (17-59); Blood Urea Nitrogen 26 mg/dl (9-20); Calcium 9.8 mg/dl (8.4-10.2); Carbon Dioxide 28 mmol/L (22.0-30.0); Creatine Kinase 110 U/L (55-170); Creatinine Clearance Estimated 95 mL/min (50-200); Estimated Glomerular Filt Rate 57 ml/min (>60); GFR (African American) 69 ML/MIN (>60); Glucose 125 mg/dl (74-100); Phosphorous 4.4 mg/dl (2.5-4.5)
[2023-11-15 13:13] LABS: Albumin Level 4.1 g/dl (3.5-5.0); Albumin/Globulin Ratio 1.2 (1.1-1.8); Globulin 3.3 g/dL (1.3-3.2); Magnesium 2.2 mg/dl (1.6-2.3); Total Protein,Serum 7.4 g/dl (6.3-8.2)
[2023-11-15 13:30] VITALS: BP 140/77; PULSE 60; RESP 16; O2SAT 97
[2023-11-15 13:51] VITALS: BP 140/77; PULSE 60; RESP 18; TEMP 36.5; O2SAT 98
== END 2023-11-15 13:56 | disposition home or self-care (01) ==
PROVIDERS: Emergency Provider Student in an Organized Health Care Education/Training Program; PCP Nurse Practitioner Family
DX: R04.0 Epistaxis (principal); M62.838 Other muscle spasm; K21.9 Gastro-esophageal reflux disease without esophagitis; I11.9 Hypertensive heart disease without heart failure; I48.0 Paroxysmal atrial fibrillation; I25.10 Atherosclerotic heart disease of native coronary artery without angina pectoris; Z79.01 Long term (current) use of anticoagulants
CPT/HCPCS: 30901; 80053; 82550; 83735; 84100; 85025; 96360; 99284

== ENCOUNTER 2023-11-15 11:50 | Outpatient (CLI) | payer BC, SELFPAY ==
[2023-11-15 12:14] LABS: Occult Blood,Stool Negative (Negative)
[2023-11-19 21:08] LABS: Calprotectin, Fecal 96 ug/g (0-120)
[2023-11-20 10:27] LABS: Pancreatic Elastase, Fecal 131
== END 2023-11-15 23:59 ==
LOC: LAB 11:51
PROVIDERS: PCP Nurse Practitioner Family; Visit Provider Nurse Practitioner
DX: R19.7 Diarrhea, unspecified (principal); R14.0 Abdominal distension (gaseous); K57.50 Diverticulosis of both small and large intestine without perforation or abscess without bleeding; K91.89 Other postprocedural complications and disorders of digestive system; R10.10 Upper abdominal pain, unspecified; Z12.11 Encounter for screening for malignant neoplasm of colon
CPT/HCPCS: 82272; 82656; 83993; G0328

== ENCOUNTER 2023-12-30 10:08 | Day surgery (SDC) | payer BC, SELFPAY ==
[2023-12-28 14:53] VITALS: BMI 31.5
[2023-12-30] VITALS (7 sets, daily range): BP systolic 148–175; BP diastolic 74–91; PULSE 56–76; RESP 18; TEMP 36–36.4; O2SAT 96–100
--- NOTE | 2023-12-30 11:17 | P.PNANES_ITS ---
[facility] Disclaimer: The information contained in this section may have been updated after the patient was seen, as this information can be updated by other users. Medical History Orgasm disorder Erectile dysfunction Sleep apnea History of gastroesophageal reflux (GERD) Atrial fibrillation CVA (cerebral vascular accident) Diverticulitis COVID-19 virus infection History of CVA (cerebrovascular accident) Encounter for pre-operative cardiovascular clearance Carotid artery stenosis HHD (hypertensive heart disease) CAD (coronary artery disease) Renal artery stenosis History of CVA in adulthood Prostate enlargement Surgical History History of prostate surgery History of kidney surgery History of colonoscopy S/P carotid endarterectomy Hx laparoscopic cholecystectomy Family History Other CHF (congestive heart failure) Family history of internal cardiac defibrillator Family history of pacemaker Social History Smoking Status: Unknown if ever smoked second hand exposure: No alcohol intake: never substance use type: denies use current occupational status: employed Travel in the last 8 weeks: None household members: spouse housing: house 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 current occupational exposures/hazards: No caffeine: Yes [facility] Anesthesia Checklist Patient Identification Patient Identification: Arm Band Structural Data Admitted From: Home Planned Operative Procedure/s: EGD Consent for Planned Operative Procedure(s) Verified: Yes Verified Documents: Surgical Consent and History and Physical NPO Status Verified Time NPO: 00:00 Additional verifications Anesthesia Reactions: No Hx Blood Transfusions: No Blood Transfusion Reaction: No Airway Assessment Mallampati Score:: Class II C-Spine Mobility Assessed: Yes TMJ Mobility Assessed: Yes Dentition: Good Dentition (Chipped Right Upper Front Tooth) Neurological Assessment Level of Consciousness: Awake and Alert Anesthesia Plan Anesthesia Risk discussed: Yes Anesthesia Plan: Verified ASA Class: III Anesthesia Type: MAC
--- NOTE | 2023-12-30 12:02 | HMH.SCOPE ---
Procedure: Date: 12/30/23 Patient Date of :: 1965 Procedure Performed:: EGD Indications:: The patient is a 58-year-old who presents for EGD evaluation of dysphagia and epigastric abdominal pain Performing Provider:: Britton Conner MD Referring Provider:: Armida Jones APRN Sedation:: See RN records Procedure:: The gastroscope was gently passed through the incisoral orifice into the oral cavity and under direct visualization the esophagus was intubated. The endoscope was passed down the esophagus, through the stomach, and into the duodenum. Color, texture, mucosa, and anatomy of the esophagus, stomach, and duodenum were carefully examined with the scope. Findings:: There was somewhat of a corkscrew appearance to the mid to distal esophagus. Z-line was measured at 40 cm. Biopsies were obtained from the distal and midesophagus for histology. Empiric esophageal dilatation was performed with a Melton dilator, 56 [place]. There was mild inflammation characterized by erythema in the gastric antrum and body. These were obtained with a cold forceps for histology. The examined duodenum appeared normal. Impression: Slight corkscrew appearance to the esophagus Gastritis Recommendations:: Await pathology results Follow-up referring GI provider as previously scheduled Complications:: None Estimated blood obtained (mL): 0 Colonoscopy Component Colonoscopy Component Was a colonoscopy performed during today's procedure?: No
== END 2023-12-30 13:05 | disposition home or self-care (01) ==
PROVIDERS: PCP Nurse Practitioner Family; Visit Provider Internal Medicine
PROC: 0DJ08ZZ Inspection of Upper Intestinal Tract, Via Natural or Artificial Opening Endoscopic (ICD-10-PCS; CPT 43235; principal; 2023-12-30 11:00)
DX: R13.10 Dysphagia, unspecified (principal); R10.13 Epigastric pain; K29.70 Gastritis, unspecified, without bleeding; K31.89 Other diseases of stomach and duodenum
CPT/HCPCS: 43239; 43248

== ENCOUNTER 2024-05-01 09:02 | Emergency (ER) | payer BC, SELFPAY ==
[2024-05-01 09:04] VITALS: BP 165/84; PULSE 64; RESP 18; TEMP 36.5; O2SAT 99; BMI 34.1
--- NOTE | 2024-05-01 09:06 | HMH.EDGENADL ---
Discharge Plan Disposition Patient Disposition: Home, Self-Care Condition: Good Prescriptions Prescriptions: New amoxicillin-pot clavulanate 875-125 mg tablet 1 tab PO BID 5 Days Qty: 10 0RF ondansetron 4 mg tablet,disintegrating 4 mg PO DAILY PRN (Reason: nausea and vomiting) 5 Days Qty: 10 0RF oxycodone 5 mg tablet 5 mg PO BID PRN (Reason: breakthrough pain, severe) 3 Days Qty: 10 0RF No Action acetaminophen [Tylenol] 325 mg Capsule 650 mg PO DAILY allopurinol 300 MG tablet 300 mg PO DAILY benazepril 40 MG tablet 40 mg PO DAILY clopidogrel 75 MG tablet 75 mg PO QDAY pantoprazole 40 mg tablet,delayed release (DR/EC) 40 mg PO DAILY furosemide 20 mg tablet 20 mg PO DAILY rosuvastatin [Crestor] 40 mg tablet 40 mg PO DAILY Referrals Follow up/Referrals: Shakira Todd [Primary Care Provider] - See instructions Activity Restrictions/Add. Instructions Additional Instructions/Restrictions: As we discussed, your CT scan shows that you have diverticulitis. I have prescribed a short course of antibiotics as well as nausea medication and medication to use as needed in addition to Tylenol or ibuprofen for breakthrough pain. Please follow-up with your primary care doctor. We discussed your finding of a lung nodule on your CT scan. Please follow this up and discussed with your primary care doctor. Please return with any new or worsening symptoms. Please review the discharge instructions for treatment of diverticulitis at home. I recommend you increase your dietary fiber intake and consider using a medication such as MiraLAX daily. Clinical Impressions Clinical Impression: Diverticulitis, Incidental lung nodule Instructions Patient Instructions: Diverticulitis, DI for Diverticulitis Print Language Print Language: Martiniquais Discharge ED Provider: Josue Perkins General Adult HPI General Chief complaint: Abdominal Pain Stated complaint: Abd pain lower back pain nausea Time Seen by Provider: 05/01/24 09:06 History of Present Illness HPI narrative: The patient presents with a chief complaint of persistent pain in the abdominal area, radiating to the back, for the past three weeks. He has a history of L1 or L2 narrowing and received an epidural shot over a month ago. The pain is exacerbated when lying on the right side, and he reports a swollen, [id number] abdomen. There is a history of diverticulitis, and he underwent surgery on the right testicle a month ago, with two surgeries in total. He saw a urologist two weeks ago and reported the pain, with high blood pressure noted during the visit. He was referred to a systems engineering manager, who performed an EKG and ruled out a heart attack. The pain is described as a cross between kidney stones and diverticulitis. Bowel movements are reported to be difficult, with a peanut butter-like consistency, and he is unsure if he is clearing himself out each time. He also reports high blood pressure due to the pain, sciatica in the hip, and pain between the shoulders. The pain is predominantly on the left side of the abdomen, radiating to the back, and is aggravated by rolling over on the side during sleep. Associated symptoms include gas that causes eye irritation, nausea, and a migraine three days ago. Upon physical examination, he reports mild pain in the lower abdominal area, with more pain on the left side. His stomach feels distended or bloated. Significant weight fluctuations occurred in the past six months, with a weight loss from 138 pounds to 117 pounds, and then back up to 138 pounds. The waist size changed from 40 inches to 36 inches, and then back to almost 40 inches. He reports shortness of breath and mentions having kidney stones in the past, with one confirmed on the left side in October of last year. He describes being unable to get comfortable while lying down and states that the pain is affecting his sleep pattern. He also mentions being very active and having a high tolerance for pain and discomfort. Please note that above description of symptoms, in this electronic medical record under categorization of recalled from ER triage doctor by RN are reflective of an initial nursing assessment, however, is not reflective of my full history and physical exam that was personally taken and clarified. Consequentially, this preceding description of symptoms, which may include the patient's categorized chief complaint in the EMR, do not reflect my personal clinical impression, and the ultimate description of history of present illness and patient stated complaints should be deferred to this section of the note. Unless stated otherwise or congruent with this section of the note, additional signs, symptoms, or incongruence should be interpreted as inaccurate with my clinical impression. Related Data Home Medications ?Medication ?Instructions ?Recorded ?Confirmed allopurinol 300 mg tablet 300 mg PO DAILY Gout 06/02/18 12/28/23 benazepril 40 mg tablet 40 mg PO DAILY High Blood Pressure 06/02/18 12/28/23 clopidogrel 75 mg tablet 75 mg PO QDAY Blood thinner 09/19/19 12/28/23 furosemide 20 mg tablet 20 mg PO DAILY Heart Failure 05/11/23 12/28/23 pantoprazole 40 mg tablet,delayed 40 mg PO DAILY gerd 05/11/23 12/28/23 release rosuvastatin 40 mg tablet (Crestor) 40 mg PO DAILY High Cholesterol 05/11/23 12/28/23 acetaminophen 325 mg capsule 650 mg PO DAILY Pain 05/29/23 12/28/23 (Tylenol) Previous Rx's ?Medication ?Instructions ?Recorded amoxicillin 875 mg-potassium 1 tab PO BID 5 days #10 tabs 05/01/24 clavulanate 125 mg tablet ondansetron 4 mg disintegrating 4 mg PO DAILY PRN nausea and 05/01/24 tablet vomiting 5 days #10 tabs oxycodone 5 mg tablet 5 mg PO BID PRN breakthrough pain, 05/01/24 severe 3 days #10 tabs Allergies Allergy/AdvReac Type Severity Reaction Status Date / Time Sulfa (Sulfonamide Allergy Intermediate Unknown Verified 12/30/23 10:34 Antibiotics) allergy reaction [facility] Disclaimer: The information contained in this section may have been updated after the patient was seen, as this information can be updated by other users. Medical History (Updated 05/01/24 @ 10:38 by Josue Perkins MD) Orgasm disorder Erectile dysfunction Sleep apnea History of gastroesophageal reflux (GERD) Atrial fibrillation CVA (cerebral vascular accident) Diverticulitis COVID-19 virus infection History of CVA (cerebrovascular accident) Encounter for pre-operative cardiovascular clearance Carotid artery stenosis HHD (hypertensive heart disease) CAD (coronary artery disease) Renal artery stenosis History of CVA in adulthood Prostate enlargement Surgical History History of prostate surgery History of kidney surgery History of colonoscopy S/P carotid endarterectomy Hx laparoscopic cholecystectomy Family History Other CHF (congestive heart failure) Family history of internal cardiac defibrillator Family history of pacemaker Social History Smoking Status: Never smoker second hand exposure: No alcohol intake: never substance use type: denies use current occupational status: employed Travel in the last 8 weeks: None household members: spouse housing: house 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 current occupational exposures/hazards: No caffeine: Yes ROS Obtained: Yes other As per HPI Physical Exam General General appearance: alert and in no apparent distress Head Head exam: atraumatic and normocephalic Eye Eye exam: Present normal appearance Neck Neck exam: Present normal inspection Chest Chest inspection: Present normal inspection and symmetric chest wall rise Respiratory Respiratory exam: Present normal lung sounds bilaterally; Absent respiratory distress Cardiovascular Cardiovascular exam: Present regular rate and normal rhythm Abdominal Exam Abdominal exam: Present soft and tenderness; Absent guarding Abdominal tenderness: Present LLQ Neurological Exam Neurological exam: Present alert and oriented X3 Psychiatric Psychiatric exam: Present normal affect and normal mood Skin Skin exam: Present warm and dry Medical Decision Making Medical Records Medical records reviewed: Yes I reviewed the patient's medical records. Abdirahman Inquiry Pt receiving controlled substance: No Vital Signs: 05/01/24 09:04 05/01/24 10:06 05/01/24 10:30 Temperature 97.7 F Temperature Source Oral Pulse Rate 66 61 Pulse Rate [Right] 64 Respiratory Rate 18 Blood Pressure 160/75 H 151/77 H Blood Pressure [Right Arm] 165/84 H Blood Pressure Mean [Right Arm] 111 02 Sat by Pulse Oximetry 99 99 97 Oxygen Delivery Method Room Air Room Air 05/01/24 10:39 Temperature 97.7 F Temperature Source Oral Pulse Rate 61 Pulse Rate [Right] Respiratory Rate 18 Blood Pressure 135/77 Blood Pressure [Right Arm] Blood Pressure Mean [Right Arm] 02 Sat by Pulse Oximetry Oxygen Delivery Method Room Air Lab Data Lab Results 05/01/24 09:06: WBC 8.7, RBC 5.16, Hgb 15.8, Hct 47.2, MCV 91.5, MCH 30.6, MCHC 33.5, RDW 14.9, Plt Count 191, MPV 8.4, Neut % (Auto) 70.4, Lymph % (Auto) 19.4, Sebastian % (Auto) 5.9, Eos % (Auto) 3.6, Baso % (Auto) 0.8, Neut # (Auto) 6.1, Lymph # (Auto) 1.7, Sebastian # (Auto) 0.5, Eos # (Auto) 0.3, Baso # (Auto) 0.1, Sodium 139, Potassium 4.4, Chloride 107, Carbon Dioxide 30, Anion Gap 6.4, BUN 20, Creatinine 1.00, Estimated Creat Clear 123, Estimated GFR 77, Est GFR ( Amer) 93, Glucose 144 H, Calcium 9.1, Total Bilirubin 1.2, AST 42, ALT 54, Alkaline Phosphatase 63, Total Protein 7.2, Albumin 4.3, Globulin 2.9, Albumin/Globulin Ratio 1.5, Lipase 99, Urine Color Yellow, Urine Appearance Clear, Urine pH 6.0, Ur Specific Custer 1.020, Urine Protein Negative, Urine Glucose (UA) Negative, Urine Ketones Negative, Urine Blood Negative, Urine Nitrate Negative, Urine Bilirubin Negative, Urine Urobilinogen 0.2, Ur Leukocyte Esterase Negative, Urine RBC None, Urine WBC Occasional, Ur Squamous Epith Cells Occasional, Urine Bacteria Trace 05/01/24 09:06 05/01/24 09:06 Orders (Tests/Meds): ED MEDICATIONS Discontinued Medications Generic Name Dose Route Start Last Admin Trade Name Freq PRN Reason Stop Dose Admin Lactated Ringer's 1,000 mls @ 999 mls/hr 05/01/24 09:32 05/01/24 09:42 Lactated Ringer's 1000 Ml Bag IV 05/01/24 10:32 999 mls/hr .Q1H1M ONE Administration Iopamidol 75 ml 05/01/24 10:08 05/01/24 10:09 Iopamidol-370 (76%);100ml Bottle IV 05/01/24 10:09 75 ml ONCE ONE Administration Morphine Sulfate 4 mg 05/01/24 09:32 05/01/24 09:42 Morphine 4mg/Ml Syringe IV 05/01/24 09:33 4 mg ONCE ONE Administration Sodium Chloride 10 ml 05/01/24 10:08 05/01/24 10:09 Sodium Chloride 0.9% 10ml Syr (Rad Only) IV 05/01/24 10:09 10 ml ONCE ONE Administration ORDERS Category Date Time Status CT abdomen pelvis w con Stat Cat Scan 05/01/24 09:33 Completed CBC w/Auto Diff [Complete Blood Count Auto Diff] Stat Lab 05/01/24 09:06 Completed CMP [Comprehensive Metabolic Panel] Stat Lab 05/01/24 09:06 Completed Lipase Stat Lab 05/01/24 09:06 Completed Urinalysis and Microscopic Stat Lab 05/01/24 09:06 Completed Urine Culture Stat Micro 05/01/24 09:06 Received Medical Decision Narrative: Patient with history and exam per above presenting for evaluation of abdominal pain Diagnoses considered include diverticulitis, diverticulosis, intra-abdominal abscess, perforation, urolithiasis, among others ED workup and treatment included: ED MEDICATIONS Discontinued Medications Generic Name Dose Route Start Last Admin Trade Name Freq PRN Reason Stop Dose Admin Lactated Ringer's 1,000 mls @ 999 mls/hr 05/01/24 09:32 05/01/24 09:42 Lactated Ringer's 1000 Ml Bag IV 05/01/24 10:32 999 mls/hr .Q1H1M ONE Administration Iopamidol 75 ml 05/01/24 10:08 05/01/24 10:09 Iopamidol-370 (76%);100ml Bottle IV 05/01/24 10:09 75 ml ONCE ONE Administration Morphine Sulfate 4 mg 05/01/24 09:32 05/01/24 09:42 Morphine 4mg/Ml Syringe IV 05/01/24 09:33 4 mg ONCE ONE Administration Sodium Chloride 10 ml 05/01/24 10:08 05/01/24 10:09 Sodium Chloride 0.9% 10ml Syr (Rad Only) IV 05/01/24 10:09 10 ml ONCE ONE Administration ORDERS Category Date Time Status CT abdomen pelvis w con Stat Cat Scan 05/01/24 09:33 Completed CBC w/Auto Diff [Complete Blood Count Auto Diff] Stat Lab 05/01/24 09:06 Completed CMP [Comprehensive Metabolic Panel] Stat Lab 05/01/24 09:06 Completed Lipase Stat Lab 05/01/24 09:06 Completed Urinalysis and Microscopic Stat Lab 05/01/24 09:06 Completed Urine Culture Stat Micro 05/01/24 09:06 Received Labs were independently interpreted by me, significant for no acute findings Imaging was independently visualized and interpreted by me, significant for diverticulitis Please refer to radiology report for full details. My clinical impression at this time is most consistent with uncomplicated diverticulitis I discussed my clinical impression with patient and answered all questions. At this time, the evidence for any other entities in the differential is insufficient to warrant any further testing or ED observation. This was explained to the patient. The patient was advised that persistent or worsening symptoms require further evaluation. Critical Care Critical Care Time Critical Care Time: No
--- NOTE | 2024-05-01 09:33 | CT_ITS ---
PROCEDURE INFORMATION: Exam: CT Abdomen And Pelvis With Contrast Exam date and time: 05/01/2024 10:02 AM Age: 59 years old Clinical indication: Abdominal pain; Flank; Left lower quadrant (llq); Additional info: Llq/flank pain, diarrhea TECHNIQUE: Imaging protocol: Computed tomography of the abdomen and pelvis with contrast. Radiation optimization: All CT scans at this facility use at least one of these dose optimization techniques: automated exposure control; mA and/or kV adjustment per patient size (includes targeted exams where dose is matched to clinical indication); or iterative reconstruction. Contrast material: ISOVUE; Contrast volume: 75 ml; Contrast route: IV; COMPARISON: CT ABDOMEN PELVIS W CON 10/03/2023 12:19 AM FINDINGS: Lungs: 2 cm solid opacity in the right lung base. Neoplasm not excluded. Liver: Fatty infiltration liver. Gallbladder is surgically removed. Gallbladder and biliary ducts: See Liver finding. Pancreas: Normal. No ductal dilation. Spleen: Normal. No splenomegaly. Adrenal glands: Normal. No mass. Kidneys and ureters: Nonobstructing calculi in the right kidney. No hydronephrosis. Stomach and bowel: Colonic diverticulosis. Focal area of wall thickening inflammatory change of the junction of the descending and sigmoid colon. Findings are suggestive of diverticulitis. Appendix: No evidence of appendicitis. Intraperitoneal space: Unremarkable. No free air. No significant fluid collection. Vasculature: Unremarkable. No abdominal aortic aneurysm. Lymph nodes: Unremarkable. No enlarged lymph nodes. Urinary bladder: Unremarkable as visualized. Reproductive: Unremarkable as visualized. Bones/joints: Unremarkable. No acute fracture. Soft tissues: Unremarkable. IMPRESSION: 1. Findings suggestive of diverticulitis at the junction of the descending and sigmoid colon. 2. 2 cm mass in the visualized right lung base. Neoplasm not excluded. Dedicated CT of the chest is recommended to evaluate for additional lesions. 3. Fatty infiltration of the liver. 4. Postop cholecystectomy surgical changes.
[2024-05-01 09:38] LABS: Microscopic, Urine URINE MICROSCOPIC (MICROSCOPIC)
[2024-05-01 09:40] LABS: Appearance,Urine CLEAR (Clear); Bilirubin,Urine Negative (Negative); Blood, Urine Negative (Negative); Color,Urine YELLOW (Yellow); Glucose,Urine (UA) Negative (Negative); Ketones,Urine Negative (Negative); Leukocyte Esterase,Urine Negative (Negative); Nitrate,Urine Negative (Negative); Protein,Urine Negative (Negative); Urobilinogen,Urine 0.2 EU/dl (0.2)
[2024-05-01 09:41] LABS: Albumin Level 4.3 g/dl (3.5-5.0); Basophils # 0.1 K/mm3 (0-0.2); Basophils % 0.8 % (0.1-2.0); Chloride 107 mmol/L (98-107); Eosinophils # 0.3 K/mm3 (0.0-0.4); Eosinophils % 3.6 % (0.1-12.0); Hematocrit 47.2 % (42.0-52.0); Hemoglobin 15.8 g/dL (14.1-18.0); Lymphocytes # 1.7 K/mm3 (0.7-4.5); Lymphocytes % 19.4 % (10-50); Mean Corpuscular HGB Conc 33.5 g/dL (31.8-35.4); Mean Corpuscular Hemoglobin 30.6 pg (27.0-31.2); Mean Corpuscular Volume 91.5 fl (80-94); Mean Platelet Volume 8.4 fl (7.4-10.4); Monocytes # 0.5 K/mm3 (0.1-1.0); Monocytes % 5.9 % (1.7-9.3); Neutrophils # 6.1 K/mm3 (1.8-7.8); Neutrophils % 70.4 % (37.0-80.0); Platelet Count 191 K/mm3 (142-424); Red Blood Count 5.16 M/mm3 (4.60-6.20); Red Cell Distribution Width 14.9 % (11.5-17.5); White Blood Count 8.7 K/mm3 (4.8-10.8)
[2024-05-01 09:42] LABS: Potassium 4.4 mmoL/L (3.5-5.1); Sodium 139 mmol/L (136-145)
[2024-05-01] MEDS: LACTATED RINGERS 1000ML 1,000 ML 999 ML IV (09:42)
[2024-05-01] MEDS: MORPHINE 4MG/ML SYRINGE 4 MG IV (09:42)
[2024-05-01 09:44] LABS: Alanine Aminotransferase 54 U/L (12-78); Albumin/Globulin Ratio 1.5 (1.1-1.8); Alkaline Phosphatase 63 U/L (38-126); Anion Gap 6.4 mEq/L (5-15); Aspartate Amino Transferase 42 U/L (17-59); Bilirubin,Total 1.2 mg/dl (0.2-1.3); Blood Urea Nitrogen 20 mg/dl (9-20); Carbon Dioxide 30 mmol/L (22.0-30.0); Creatinine Clearance Estimated 123 mL/min (50-200); Estimated Glomerular Filt Rate 77 ml/min (>60); GFR (African American) 93 ML/MIN (>60); Globulin 2.9 g/dL (1.3-3.2); Total Protein,Serum 7.2 g/dl (6.3-8.2)
[2024-05-01 09:45] LABS: Calcium 9.1 mg/dl (8.4-10.2); Glucose 144 mg/dl (74-100); Lipase 99 U/L (23-300)
[2024-05-01 09:50] LABS: Bacteria,Urine Trace /lpf; Squamous Epithelial Cell,Urine Occasional #/hpf (0-5); WBC,Urine Occasional #/hpf (0-3)
--- NOTE | 2024-05-01 09:56 | PC.NURSE ---
pt to ct
--- NOTE | 2024-05-01 10:05 | PC.NURSE ---
pt returned from ct
[2024-05-01 10:06] VITALS: BP 160/75; PULSE 66; O2SAT 99
[2024-05-01] MEDS: IOPAMIDOL-370 (76%);100ML BOTTLE 75 ML IV (10:09)
[2024-05-01] MEDS: SODIUM CHLORIDE 0.9% 10ML SYR (RAD ONLY) 10 ML IV (10:09)
[2024-05-01 10:30] VITALS: BP 151/77; PULSE 61; O2SAT 97
--- NOTE | 2024-05-01 10:31 | PC.NURSE ---
dr hernandze at bedside to update pt
[2024-05-01 10:39] VITALS: BP 135/77; PULSE 61; RESP 18; TEMP 36.5; O2SAT 98
--- NOTE | 2024-05-09 04:05 | PC.NURSE ---
urine culture is complete, no growth. ntd.
== END 2024-05-01 10:49 | disposition home or self-care (01) ==
PROVIDERS: Emergency Provider Emergency Medicine; PCP Nurse Practitioner Family
DX: R10.32 Left lower quadrant pain (principal); M54.59 Other low back pain; K57.32 Diverticulitis of large intestine without perforation or abscess without bleeding; R91.1 Solitary pulmonary nodule; Z87.442 Personal history of urinary calculi
CPT/HCPCS: 74177; 80053; 81001; 83690; 85025; 87086; 96361; 96374; 99285; J2270; J7120; Q9967

== ENCOUNTER 2024-05-14 21:37 | Emergency (ER) | payer BC, SELFPAY ==
[2024-05-14 22:26] VITALS: BP 172/80; PULSE 74; RESP 18; TEMP 36.4; O2SAT 98; BMI 34.1
--- NOTE | 2024-05-14 22:41 | CT_ITS ---
PROCEDURE INFORMATION: Exam: CT Thoracic Spine Without Contrast Exam date and time: 05/14/2024 10:55 PM Age: 59 years old Clinical indication: Pain in thoracic spine and pain in thoracic intervertebral disc disorder; Additional info: R flank pain, R mid back pain TECHNIQUE: Imaging protocol: Computed tomography of the thoracic spine without contrast. Radiation optimization: All CT scans at this facility use at least one of these dose optimization techniques: automated exposure control; mA and/or kV adjustment per patient size (includes targeted exams where dose is matched to clinical indication); or iterative reconstruction. COMPARISON: 1. CT THORACIC SPINE WO CON 05/14/2024 10:[address] ABDOMEN PELVIS W CON 05/01/2024 10:[address] ABDOMEN PELVIS W CON 10/03/2023 12:19 AM FINDINGS: Tubes, catheters and devices: Left atrial appendage occlusion device is in place. Bones/joints: There is partially visualized cervical spine surgical hardware. No evidence of acute spondylolisthesis or vertebral subluxation. Vertebral body heights are generally preserved, but some endplate sclerosis and anterior osteophytes are noted at multiple levels. Narrowing of multiple intervertebral disc spaces observed, indicative of degenerative disc disease. Hypertrophic changes are seen in the facet joints, consistent with osteoarthritis. No fractures or bony lesions identified. No abnormalities seen in adjacent osseous structures. There is exaggeration of the spinal curvature. Soft tissues: Unremarkable. Other findings: No obvious abnormalities seen in the prevertebral and paravertebral soft tissues. IMPRESSION: Degenerative changes without acute abnormality detected.
--- NOTE | 2024-05-14 22:41 | CT_ITS ---
PROCEDURE INFORMATION: Exam: CT Abdomen And Pelvis Without Contrast Exam date and time: 05/14/2024 11:04 PM Age: 59 years old Clinical indication: Abdominal pain; Additional info: R flank pain, R mid back pain TECHNIQUE: Imaging protocol: Computed tomography of the abdomen and pelvis without contrast. Radiation optimization: All CT scans at this facility use at least one of these dose optimization techniques: automated exposure control; mA and/or kV adjustment per patient size (includes targeted exams where dose is matched to clinical indication); or iterative reconstruction. COMPARISON: 1. CT ABDOMEN PELVIS W CON 05/01/2024 10:[address] ABDOMEN PELVIS W CON 10/03/2023 12:[address] ABDOMEN PELVIS W CON 04/06/2023 9:49 PM FINDINGS: Lungs: Interval decrease in size of the spiculated nodule of the right lung base compared to the examination dated May 01, 2024. Liver: Geometric low-density in the right hepatic lobe may reflect asymmetric steatosis but is incompletely evaluated on this study, please correlate with laboratory findings and consider nonemergent MRI for further evaluation. Gallbladder and biliary ducts: The patient is status post cholecystectomy. Pancreas: Normal. Spleen: Normal. Adrenal glands: The adrenal glands appear normal. Kidneys and ureters: Nonobstructing right lower pole intrarenal calculus. Duplicated right renal collecting system. Stomach and bowel: There are scattered colonic diverticula. Appendix: No evidence of appendicitis. Intraperitoneal space: Unremarkable. Vasculature: There is a left renal arterial stent in place. Lymph nodes: No lymphadenopathy. Urinary bladder: Unremarkable as visualized. Reproductive: No acute process. Bones/joints: Please see the dedicated interpretation of the spine for findings in that region. Soft tissues: There are fat containing bilateral inguinal hernias. Laxity of the ventral abdominal wall consistent with diastasis recti. IMPRESSION: 1. Interval decrease in size of the spiculated nodule of the right lung base compared to the examination dated May 01, 2024. 2. Nonobstructing right-sided intrarenal calculus. 3. Geometric low-density in the right hepatic lobe may reflect asymmetric steatosis but is incompletely evaluated on this study, please correlate with laboratory findings and consider nonemergent MRI for further evaluation.
--- NOTE | 2024-05-14 22:41 | CT_ITS ---
PROCEDURE INFORMATION: Exam: CT Lumbar Spine Without Contrast Exam date and time: 05/14/2024 11:02 PM Age: 59 years old Clinical indication: Low back pain; Additional info: R flank pain, R mid back pain TECHNIQUE: Imaging protocol: Computed tomography of the lumbar spine without contrast. Radiation optimization: All CT scans at this facility use at least one of these dose optimization techniques: automated exposure control; mA and/or kV adjustment per patient size (includes targeted exams where dose is matched to clinical indication); or iterative reconstruction. COMPARISON: 1. MR LUMBAR SPINE WO CON 04/03/2020 9:16 AM 2. CR XR LUMBAR SPINE 6V W BENDING 02/24/2020 11:[address] THORACIC SPINE WO CON 05/14/2024 10:55 PM FINDINGS: Bones/joints: There is slight anterolisthesis of L4 on L5. There is mild multilevel spondylosis including small disc bulges and mild canal narrowing at L3-L4, and L4-L5, as well as severe canal narrowing at L5-S1. No acute fracture or subluxation is seen. Intraperitoneal space: Please see the dedicated interpretation of abdomen and pelvis for findings in that region. Soft tissues: Unremarkable. IMPRESSION: 1. No acute injury. Multilevel spondylosis including severe canal narrowing at L4-L5. 2. Please see the dedicated interpretation of abdomen and pelvis for findings in that region.
--- NOTE | 2024-05-14 22:43 | ED_ITS ---
Discharge Plan Disposition Patient Disposition: Home, Self-Care Condition: Good Prescriptions Prescriptions: New methocarbamol 500 mg tablet 500 mg PO Q12H PRN (Reason: muscle spasm) Qty: 14 0RF lidocaine 5 % adhesive patch,medicated See Rx Instructions .ROUTE .COMPLEX Qty: 15 0RF Rx Instructions: Apply 1 patch to most painful area for up to 12 hours. Remove after 12 hours and leave off for 12 hours before using a new patch No Action acetaminophen [Tylenol] 325 mg Capsule 650 mg PO DAILY allopurinol 300 MG tablet 300 mg PO DAILY benazepril 40 MG tablet 40 mg PO DAILY clopidogrel 75 MG tablet 75 mg PO QDAY pantoprazole 40 mg tablet,delayed release (DR/EC) 40 mg PO DAILY furosemide 20 mg tablet 20 mg PO DAILY rosuvastatin [Crestor] 40 mg tablet 40 mg PO DAILY amoxicillin-pot clavulanate 875-125 mg tablet 1 tab PO BID 5 Days Qty: 10 0RF ondansetron 4 mg tablet,disintegrating 4 mg PO DAILY PRN (Reason: nausea and vomiting) 5 Days Qty: 10 0RF oxycodone 5 mg tablet 5 mg PO BID PRN (Reason: breakthrough pain, severe) 3 Days Qty: 10 0RF Referrals Follow up/Referrals: Shakira Todd [Primary Care Provider] - See instructions Activity Restrictions/Add. Instructions Additional Instructions/Restrictions: You were evaluated in the ER and are appropriate for discharge at this time. Continue taking home medications as previously prescribed. Take the prescribed methocarbamol if needed for muscle spasm, do not drive or operate machinery after taking this medication as it will make you sleepy. Use the lidocaine patches as directed. Call and make an appointment with your spine team for follow-up as well as with Dr. Oleary for follow-up and pain management. Follow-up with your primary care doctor for reevaluation of lung nodule. Return to the ER with new, worsening, or otherwise concerning symptoms. Clinical Impressions Clinical Impression: Right flank pain, Incidental lung nodule Instructions Patient Instructions: DI for Low Back Pain Print Language Print Language: Macedonian Discharge ED Provider: Yelena Laguna General Adult HPI <Yelena Laguna DO - Last Filed: 05/14/24 23:35> General Chief complaint: Back Pain/Injury Stated complaint: pain in middle right back Time Seen by Provider: 09/21/24 22:24 Mode of Arrival: Ambulatory Source of Information: Patient Limitations: No Limitations Description of Symptoms (Recalled from ER Triage Doc. by RN): Pt ambulatory to ED with cc of mid right back pain. Pt states he has chronic back pain but in the last two weeks the pain has become increasingly worse. Pt describes the pain as sharp stabbing pain. History of Present Illness HPI narrative: This patient is a 59-year-old male with a history of kidney stones, hypertension, hyperlipidemia, recent bout of diverticulitis, CHF, carotid stenosis, hypertensive heart disease presenting to the emergency department for evaluation with concern for right flank pain. He states that he has chronic back pain but the last 2 weeks the pain has become increasingly worse. He notes it started bothering him after he was evaluated here for diverticulitis. He states he completed treatment for his diverticulitis and was feeling a lot better as far as his abdominal pain goes. He does not currently have any fevers, chills, abdominal pain, nausea, vomiting or changes in bowel movements, changes in urination, or other concerns. No recent falls or injuries. No numbness, tingling, saddle anesthesia or other concerns either. He was not sure if this could be a kidney stone or if it could potentially be a herniated disc. Related Data Home Medications ?Medication ?Instructions ?Recorded ?Confirmed allopurinol 300 mg tablet 300 mg PO DAILY Gout 06/02/18 12/28/23 benazepril 40 mg tablet 40 mg PO DAILY High Blood Pressure 06/02/18 12/28/23 clopidogrel 75 mg tablet 75 mg PO QDAY Blood thinner 09/19/19 12/28/23 furosemide 20 mg tablet 20 mg PO DAILY Heart Failure 05/11/23 12/28/23 pantoprazole 40 mg tablet,delayed 40 mg PO DAILY gerd 05/11/23 12/28/23 release rosuvastatin 40 mg tablet (Crestor) 40 mg PO DAILY High Cholesterol 05/11/23 12/28/23 acetaminophen 325 mg capsule 650 mg PO DAILY Pain 05/29/23 12/28/23 (Tylenol) Previous Rx's ?Medication ?Instructions ?Recorded amoxicillin 875 mg-potassium 1 tab PO BID 5 days #10 tabs 05/01/24 clavulanate 125 mg tablet ondansetron 4 mg disintegrating 4 mg PO DAILY PRN nausea and 09/08/24 tablet vomiting 5 days #10 tabs oxycodone 5 mg tablet 5 mg PO BID PRN breakthrough pain, 05/01/24 severe 3 days #10 tabs lidocaine 5 % topical patch See Rx Instructions topical 05/15/24 .COMPLEX #15 ea methocarbamol 500 mg tablet 500 mg PO Q12H PRN muscle spasm 05/15/24 #14 tabs Allergies Allergy/AdvReac Type Severity Reaction Status Date / Time Sulfa (Sulfonamide Allergy Intermediate Unknown Verified 12/30/23 10:34 Antibiotics) allergy reaction PFSH <Yelena Laguna DO - Last Filed: 05/14/24 23:35> PFS Disclaimer: The information contained in this section may have been updated after the patient was seen, as this information can be updated by other users. Medical History Orgasm disorder Erectile dysfunction Sleep apnea History of gastroesophageal reflux (GERD) Atrial fibrillation CVA (cerebral vascular accident) Diverticulitis COVID-19 virus infection History of CVA (cerebrovascular accident) Encounter for pre-operative cardiovascular clearance Carotid artery stenosis HHD (hypertensive heart disease) CAD (coronary artery disease) Renal artery stenosis History of CVA in adulthood Prostate enlargement Surgical History History of prostate surgery History of kidney surgery History of colonoscopy S/P carotid endarterectomy Hx laparoscopic cholecystectomy Family History Other CHF (congestive heart failure) Family history of internal cardiac defibrillator Family history of pacemaker Social History Smoking Status: Never smoker second hand exposure: No alcohol intake: never substance use type: denies use current occupational status: employed Travel in the last 8 weeks: None household members: spouse housing: house 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 current occupational exposures/hazards: No caffeine: Yes <Yelena Laguna DO - Last Filed: 05/14/24 23:35> ROS Obtained: Yes All systems reviewed & no additional complaints except as documented Physical Exam <Yelena Laguna DO - Last Filed: 05/14/24 23:35> General General appearance: alert, in no apparent distress and obese Head Head exam: atraumatic and normocephalic Eye Eye exam: Present normal appearance, PERRL and EOMI ENT ENT exam: Present normal exam, normal oropharynx, mucous membranes moist and normal external ear exam Neck Neck exam: Present normal inspection, full ROM and trachea midline; Absent tenderness Chest Chest inspection: Present normal inspection and symmetric chest wall rise; Absent tenderness Respiratory Respiratory exam: Present normal lung sounds bilaterally; Absent respiratory distress, wheezes, stridor or accessory muscle use Cardiovascular Cardiovascular exam: Present regular rate and normal rhythm Abdominal Exam Abdominal exam: Present soft; Absent distention, tenderness or guarding Extremities Exam Extremities exam: Present normal inspection, full ROM and normal capillary refill; Absent tenderness or edema Back Exam Back exam: Present full ROM, tenderness (Right paraspinal) and CVA tenderness (R) Back 1 view image: 2 1. Tenderness Neurological Exam Neurological exam: Present alert, oriented X3, CN II-XII intact and normal gait; Absent motor sensory deficit Psychiatric Psychiatric exam: Present normal affect and normal mood Skin Skin exam: Present warm and dry Medical Decision Making <Yelena Laguna, DO - Last Filed: 05/14/24 23:35> Medical Records Medical records reviewed: Yes I reviewed the patient's medical records. Screening: Per USPSTF and CDC recommendations, given the prevalence of disease in our region, it is our hospital?s policy to screen for HIV and viral Hepatitis for all patients aged 18 and over and those with ongoing risk factors. Abdirahman Inquiry Pt receiving controlled substance: No Vital Signs: 05/14/24 22:26 05/14/24 23:30 05/15/24 00:00 Temperature 97.5 F L Temperature Source Oral Pulse Rate 63 62 Pulse Rate [Left Radial] 74 Respiratory Rate 18 Blood Pressure 165/76 H 146/90 H Blood Pressure [Right Arm] 172/80 H Blood Pressure Mean Blood Pressure Mean [Right Arm] 110 Blood Pressure Source [Right Arm] Automatic Cuff 02 Sat by Pulse Oximetry 98 97 96 Oxygen Delivery Method Room Air 05/15/24 00:31 Temperature Temperature Source Pulse Rate Pulse Rate [Left Radial] Respiratory Rate Blood Pressure 161/94 H Blood Pressure [Right Arm] Blood Pressure Mean 108 Blood Pressure Mean [Right Arm] Blood Pressure Source [Right Arm] 02 Sat by Pulse Oximetry Oxygen Delivery Method Lab Data Lab results reviewed: Yes I reviewed the patient's lab results. Lab Results 05/14/24 22:50: WBC 9.0, RBC 4.77, Hgb 15.0, Hct 44.4, MCV 93.1, MCH 31.4 H, MCHC 33.8, RDW 14.1, Plt Count 143, MPV 7.4, Neut % (Auto) 60.1, Lymph % (Auto) 30.0, [place] % (Auto) 5.0, Eos % (Auto) 4.0, Baso % (Auto) 0.9, Neut # (Auto) 5.4, Lymph # (Auto) 2.7, [place] # (Auto) 0.5, Eos # (Auto) 0.4, Baso # (Auto) 0.1, Sodium 138, Potassium 3.8, Chloride 107, Carbon Dioxide 28, Anion Gap 6.8, BUN 20, Creatinine 1.10, Estimated Creat Clear 112, Estimated GFR 69, Est GFR ( Amer) 83, Glucose 243 H, Calcium 9.3, Total Bilirubin 0.8, AST 45, ALT 55, Alkaline Phosphatase 64, Total Protein 6.7, Albumin 4.1, Globulin 2.6, Albumin/Globulin Ratio 1.6, Lipase 195 05/15/24 00:10: Urine Color Yellow, Urine Appearance Clear, Urine pH 6.0, Ur Specific [place] >= 1.030, Urine Protein Negative, Urine Glucose (UA) Trace, Urine Ketones Negative, Urine Blood Negative, Urine Nitrate Negative, Urine Bilirubin Negative, Urine Urobilinogen 0.2, Ur Leukocyte Esterase Negative, Urine RBC None, Urine WBC Occasional, Ur Squamous Epith Cells None, Urine Bacteria Trace 05/14/24 22:50 05/14/24 22:50 Orders (Tests/Meds): ED MEDICATIONS Discontinued Medications Generic Name Dose Route Start Last Admin Trade Name Lupilloq PRN Reason Stop Dose Admin Acetaminophen 1,000 mg 05/14/24 22:40 05/14/24 22:57 Acetaminophen 500mg Tab PO 05/14/24 22:41 Not Given ONCE ONE Acetaminophen 1,000 mg 05/14/24 22:46 05/14/24 22:47 Acetaminophen 1,000mg/100ml Vial IV 05/14/24 22:47 1,000 mg ONCE ONE Administration Lactated Ringer's 1,000 mls @ 999 mls/hr 05/14/24 22:40 05/14/24 22:44 Lactated Ringer's 1000 Ml Bag IV 05/14/24 23:40 999 mls/hr .Q1H1M ONE Administration Ketorolac Tromethamine 15 mg 05/14/24 22:40 05/14/24 22:45 Ketorolac 30mg/Ml Vial IV 05/14/24 22:41 15 mg ONCE ONE Administration Methocarbamol 500 mg 05/14/24 23:57 05/15/24 00:11 Methocarbamol 500mg Tablet PO 05/14/24 23:58 500 mg ONCE ONE Administration Ondansetron HCl 4 mg 05/14/24 22:40 05/14/24 22:45 Ondansetron 4mg/2ml Vial IV 05/14/24 22:41 4 mg ONCE ONE Administration ORDERS Category Date Time Status CT abdomen pelvis wo con Stat Cat Scan 05/14/24 22:[address] lumbar spine wo con Stat Cat Scan 05/14/24 22:[address] thoracic spine wo con Stat Cat Scan 05/14/24 22:41 Completed Complete Blood Count Auto Diff Stat Lab 05/14/24 22:50 Completed Comprehensive Metabolic Panel Stat Lab 05/14/24 22:50 Completed Lipase Stat Lab 05/14/24 22:50 Completed UA [Urinalysis and Microscopic] Stat Lab 05/15/24 00:10 Completed Medical Decision Narrative: In summary, this patient is a 59-year-old male presenting to the Emergency Department for evaluation of right flank pain. Differential diagnoses considered include but are not limited to cystitis, pyelonephritis, ureterolithiasis, colitis, hepatitis, pleuritis, musculoskeletal strain/pain, disc herniation. Ruling out the most morbid conditions drove assessment. It should be noted patient's history includes hypertension, hyperlipidemia, CAD which may or may not be at goal therapy. This complicates all aspects of care by increasing patient's risk for morbidity. I reviewed patient's past medical records and noted recent evaluation for diverticulitis 05/01/2024. Also noted that she incidentally was found to have a right lung nodule, for which he was told to follow-up outpatient. On exam, the patient is lying in bed in no acute distress. He is hypertensive but otherwise vitals are reassuring on cardiac telemetry. He has right paraspinal tenderness as well as right CVA tenderness. Abdominal exam is benign. He is neurologically intact in his lower extremities without alarm findings/symptoms suggestive of cauda equina syndrome or spinal cord compression. Workup included CBC, CMP, lipase, urinalysis, CT abdomen and pelvis without IV contrast, CT T/L-spine without IV contrast. He was given a bolus of IV fluids as well as IV Toradol, oral Tylenol, and IV Zofran for symptomatic improvement. Patient care signed out to the oncoming provider, Dr. Borrero, pending workup. <Kaity Borrero MD - Last Filed: 05/15/24 01:22> Vital Signs: 05/14/24 22:26 05/14/24 23:30 05/15/24 00:00 Temperature 97.5 F L Temperature Source Oral Pulse Rate 63 62 Pulse Rate [Left Radial] 74 Respiratory Rate 18 Blood Pressure 165/76 H 146/90 H Blood Pressure [Right Arm] 172/80 H Blood Pressure Mean Blood Pressure Mean [Right Arm] 110 Blood Pressure Source [Right Arm] Automatic Cuff 02 Sat by Pulse Oximetry 98 97 96 Oxygen Delivery Method Room Air 05/15/24 00:31 Temperature Temperature Source Pulse Rate Pulse Rate [Left Radial] Respiratory Rate Blood Pressure 161/94 H Blood Pressure [Right Arm] Blood Pressure Mean 108 Blood Pressure Mean [Right Arm] Blood Pressure Source [Right Arm] 02 Sat by Pulse Oximetry Oxygen Delivery Method Lab Data Lab Results 05/14/24 22:50: WBC 9.0, RBC 4.77, Hgb 15.0, Hct 44.4, MCV 93.1, MCH 31.4 H, MCHC 33.8, RDW 14.1, Plt Count 143, MPV 7.4, Neut % (Auto) 60.1, Lymph % (Auto) 30.0, [place] % (Auto) 5.0, Eos % (Auto) 4.0, Baso % (Auto) 0.9, Neut # (Auto) 5.4, Lymph # (Auto) 2.7, [place] # (Auto) 0.5, Eos # (Auto) 0.4, Baso # (Auto) 0.1, Sodium 138, Potassium 3.8, Chloride 107, Carbon Dioxide 28, Anion Gap 6.8, BUN 20, Creatinine 1.10, Estimated Creat Clear 112, Estimated GFR 69, Est GFR ( Amer) 83, Glucose 243 H, Calcium 9.3, Total Bilirubin 0.8, AST 45, ALT 55, Alkaline Phosphatase 64, Total Protein 6.7, Albumin 4.1, Globulin 2.6, Albumin/Globulin Ratio 1.6, Lipase 195 05/15/24 00:10: Urine Color Yellow, Urine Appearance Clear, Urine pH 6.0, Ur Specific [place] >= 1.030, Urine Protein Negative, Urine Glucose (UA) Trace, Urine Ketones Negative, Urine Blood Negative, Urine Nitrate Negative, Urine Bilirubin Negative, Urine Urobilinogen 0.2, Ur Leukocyte Esterase Negative, Urine RBC None, Urine WBC Occasional, Ur Squamous Epith Cells None, Urine Bacteria Trace Orders (Tests/Meds): ED MEDICATIONS Discontinued Medications Generic Name Dose Route Start Last Admin Trade Name Freq PRN Reason Stop Dose Admin Acetaminophen 1,000 mg 05/14/24 22:40 05/14/24 22:57 Acetaminophen 500mg Tab PO 05/14/24 22:41 Not Given ONCE ONE Acetaminophen 1,000 mg 05/14/24 22:46 05/14/24 22:47 Acetaminophen 1,000mg/100ml Vial IV 05/14/24 22:47 1,000 mg ONCE ONE Administration Lactated Ringer's 1,000 mls @ 999 mls/hr 05/14/24 22:40 05/14/24 22:44 Lactated Ringer's 1000 Ml Bag IV 05/14/24 23:40 999 mls/hr .Q1H1M ONE Administration Ketorolac Tromethamine 15 mg 05/14/24 22:40 05/14/24 22:45 Ketorolac 30mg/Ml Vial IV 05/14/24 22:41 15 mg ONCE ONE Administration Methocarbamol 500 mg 05/14/24 23:57 05/15/24 00:11 Methocarbamol 500mg Tablet PO 05/14/24 23:58 500 mg ONCE ONE Administration Ondansetron HCl 4 mg 05/14/24 22:40 05/14/24 22:45 Ondansetron 4mg/2ml Vial IV 05/14/24 22:41 4 mg ONCE ONE Administration ORDERS Category Date Time Status CT abdomen pelvis wo con Stat Cat Scan 05/14/24 22:[address] lumbar spine wo con Stat Cat Scan 05/14/24 22:[address] thoracic spine wo con Stat Cat Scan 05/14/24 22:41 Completed Complete Blood Count Auto Diff Stat Lab 05/14/24 22:50 Completed Comprehensive Metabolic Panel Stat Lab 05/14/24 22:50 Completed Lipase Stat Lab 05/14/24 22:50 Completed UA [Urinalysis and Microscopic] Stat Lab 05/15/24 00:10 Completed Medical Decision Narrative: In summary, this patient is a 59-year-old male presenting to the Emergency Department for evaluation of right flank pain. Differential diagnoses considered include but are not limited to cystitis, pyelonephritis, ureterolithiasis, colitis, hepatitis, pleuritis, musculoskeletal strain/pain, disc herniation. Ruling out the most morbid conditions drove assessment. It should be noted patient's history includes hypertension, hyperlipidemia, CAD which may or may not be at goal therapy. This complicates all aspects of care by increasing patient's risk for morbidity. I reviewed patient's past medical records and noted recent evaluation for diverticulitis 05/01/2024. Also noted that she incidentally was found to have a right lung nodule, for which he was told to follow-up outpatient. On exam, the patient is lying in bed in no acute distress. He is hypertensive but otherwise vitals are reassuring on cardiac telemetry. He has right paraspinal tenderness as well as right CVA tenderness. Abdominal exam is benign. He is neurologically intact in his lower extremities without alarm findings/symptoms suggestive of cauda equina syndrome or spinal cord compression. Workup included CBC, CMP, lipase, urinalysis, CT abdomen and pelvis without IV contrast, CT T/L-spine without IV contrast. He was given a bolus of IV fluids as well as IV Toradol, oral Tylenol, and IV Zofran for symptomatic improvement. Patient care signed out to the oncoming provider, Dr. Borrero, pending workup. Borrero: Upon my assumption of care patient is stable. Labs were reviewed and are nonactionable. No findings of UTI on UA. CT imaging personally interpreted does not demonstrate acute traumatic injury, there are findings of degenerative changes in the spine, patient has right lung nodule which has been previously appreciated, intrarenal right renal stone but no ureteral stone. I do not believe this is causing his pain. See radiology read for final interpretation Patient received methocarbamol in the ER. On reassessment he was resting comfortably and has had significant relief of symptoms. This is encouraging that his symptoms are likely related to muscle spasm, possible radiculopathy. Patient has no red flag symptoms for cauda equina. He states he has had a prescription for methocarbamol previously but experiences significant drowsiness with it. Since it did offer relief he is amenable to having a prescription for this but was given clear instructions on not taking it before having to drive or perform other dangerous tasks. Patient has previously followed with a spine team and Dr. Oleary. I encouraged him to follow-up with these teams again for reevaluation as well as to be reevaluated by his PCP regarding the lung nodule. I also prescribed lidocaine patches. Patient has been taking Tylenol and diclofenac at home which I encouraged him to continue taking as previously directed. Patient was given instructions on symptomatic management, follow up instructions, and return precautions for the emergency department. Patient indicated understanding and was discharged in stable condition. Critical Care <Yelena Laguna, - Last Filed: 05/14/24 23:35> Critical Care Time Critical Care Time: No
[2024-05-14] MEDS: LACTATED RINGERS 1000ML 1,000 ML 999 ML IV (22:44)
[2024-05-14] MEDS: ONDANSETRON 4MG/2ML VIAL 4 MG IV (22:45)
[2024-05-14] MEDS: KETOROLAC 30MG/ML VIAL 15 MG IV (22:45)
[2024-05-14] MEDS: ACETAMINOPHEN 1,000MG/100ML VIAL 1000 MG IV (22:47)
[2024-05-14 23:02] LABS: Basophils # 0.1 K/mm3 (0-0.2); Basophils % 0.9 % (0.1-2.0); Eosinophils # 0.4 K/mm3 (0.0-0.4); Hematocrit 44.4 % (42.0-52.0); Lymphocytes # 2.7 K/mm3 (0.7-4.5); Mean Corpuscular HGB Conc 33.8 g/dL (31.8-35.4); Mean Corpuscular Hemoglobin 31.4 pg (27.0-31.2); Mean Corpuscular Volume 93.1 fl (80-94); Mean Platelet Volume 7.4 fl (7.4-10.4); Monocytes # 0.5 K/mm3 (0.1-1.0); Neutrophils # 5.4 K/mm3 (1.8-7.8); Neutrophils % 60.1 % (37.0-80.0); Platelet Count 143 K/mm3 (142-424); Red Blood Count 4.77 M/mm3 (4.60-6.20); Red Cell Distribution Width 14.1 % (11.5-17.5)
[2024-05-14 23:06] LABS: Albumin Level 4.1 g/dl (3.5-5.0); Chloride 107 mmol/L (98-107); Sodium 138 mmol/L (136-145)
[2024-05-14 23:07] LABS: Potassium 3.8 mmoL/L (3.5-5.1)
[2024-05-14 23:09] LABS: Alanine Aminotransferase 55 U/L (12-78); Albumin/Globulin Ratio 1.6 (1.1-1.8); Alkaline Phosphatase 64 U/L (38-126); Anion Gap 6.8 mEq/L (5-15); Aspartate Amino Transferase 45 U/L (17-59); Bilirubin,Total 0.8 mg/dl (0.2-1.3); Blood Urea Nitrogen 20 mg/dl (9-20); Carbon Dioxide 28 mmol/L (22.0-30.0); Creatinine Clearance Estimated 112 mL/min (50-200); Estimated Glomerular Filt Rate 69 ml/min (>60); GFR (African American) 83 ML/MIN (>60); Globulin 2.6 g/dL (1.3-3.2); Lipase 195 U/L (23-300); Total Protein,Serum 6.7 g/dl (6.3-8.2)
[2024-05-14 23:10] LABS: Calcium 9.3 mg/dl (8.4-10.2); Glucose 243 mg/dl (74-100)
[2024-05-14 23:30] VITALS: BP 165/76; PULSE 63; O2SAT 97
[2024-05-15] VITALS: BP 146/90; PULSE 62; O2SAT 96
[2024-05-15] MEDS: METHOCARBAMOL 500MG TABLET 500 MG PO (00:11)
[2024-05-15 00:17] LABS: Appearance,Urine CLEAR (Clear); Bilirubin,Urine Negative (Negative); Blood, Urine Negative (Negative); Color,Urine YELLOW (Yellow); Glucose,Urine (UA) TRACE (Negative); Ketones,Urine Negative (Negative); Leukocyte Esterase,Urine Negative (Negative); Nitrate,Urine Negative (Negative); Protein,Urine Negative (Negative); Specific Gravity, Urine >= 1.030 (1.005-1.030); Urobilinogen,Urine 0.2 EU/dl (0.2)
[2024-05-15 00:18] LABS: Microscopic, Urine URINE MICROSCOPIC (MICROSCOPIC)
[2024-05-15 00:31] VITALS: BP 161/94
[2024-05-15 00:40] LABS: Bacteria,Urine Trace /lpf; WBC,Urine Occasional #/hpf (0-3)
[2024-05-15 01:17] VITALS: BP 129/64; PULSE 74; RESP 18; TEMP 36.5; O2SAT 98
== END 2024-05-15 01:24 | disposition home or self-care (01) ==
PROVIDERS: Emergency Provider Emergency Medicine; PCP Nurse Practitioner Family
DX: M54.50 Low back pain, unspecified (principal); G89.29 Other chronic pain; R91.1 Solitary pulmonary nodule; I11.0 Hypertensive heart disease with heart failure; I50.9 Heart failure, unspecified; E78.5 Hyperlipidemia, unspecified; I48.91 Unspecified atrial fibrillation; I65.29 Occlusion and stenosis of unspecified carotid artery; Z86.73 Personal history of transient ischemic attack (TIA), and cerebral infarction without residual deficits
CPT/HCPCS: 72128; 72131; 74176; 80053; 81001; 83690; 85025; 96361; 96374; 96375; 99285; J0131; J1885; J2405; J7120

== ENCOUNTER 2024-09-15 14:40 | Outpatient (POV) | payer BC, SELFPAY ==
[2024-09-15 14:47] VITALS: BP 155/78; PULSE 84; RESP 18; O2SAT 98; BMI 34.1
--- NOTE | 2024-09-15 15:54 | A.OFFVIS_ITS ---
HPI Data of Consult Patient: new to practice Consult date: 09/15/24 Requesting Physician: Yelena Domínguez APRN Primary Care Provider: Shakira Todd Consult Narrative Reason for consult: Generalized joint pain, chronic low back pain, bilateral leg pain, bilatera History of present illness: Mr. Tyson is a 59 year old male who presents today as a new patient. He is a referral from referral from Dr. Millan's office. Today he rates his pain a 10 out of 10. Patient states he has chronic pain throughout multiple joints a history of gout, chronic low back pain that does radiate into his bilateral lower extremities as well as bilateral knee pain. He does state that it is his knees are causing significant pain and describes it as an aching, throbbing sensation that is worse with increased activity. He is stating that it is interfering with his ability to perform activities of daily living such as cooking and cleaning. Patient does state he has had injections in his knees however it was around January of last year with his last injections. He is asking if we could possibly get scheduled for repeat injections at these locations. Patient states his overall pain has gone on for years and progressively worsened over time. 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 Patient states that his primary care was referring him for possible RA to a material requisitioner. Patient has tried oral medications, heat and ice and topicals including Voltaren with minimal relief. He has went to physical therapy with no additional changes. Patient does have a history of injections including epidural and lumbar RFA that have helped. He states he was told that he is no longer a surgical candidate at this time for his back. He states he did have a C5-C7 fusion in the past. He does state the pain is worse with any type of increased activity or movement. He has used a TENS unit here recently and states it did significantly help. Patient is currently managed with diclofenac however feels like it is not working as well as it used to and is also on Robaxin as needed however feels like that does not really do anything either. Patient is interested in improvement options for MRI office. His Abdirahman has been reviewed and is appropriate. CC: Yelena Domínguez APRN [facility] Disclaimer: The information contained in this section may have been updated after the chelsea healy was seen, as this information can be updated by other users. Medical History Orgasm disorder Erectile dysfunction ever since prostate surgery in January of 2023 Sleep apnea History of gastroesophageal reflux (GERD) Atrial fibrillation CVA (cerebral vascular accident) Diverticulitis COVID-19 virus infection History of CVA (cerebrovascular accident) Encounter for pre-operative cardiovascular clearance Carotid artery stenosis HHD (hypertensive heart disease) CAD (coronary artery disease) Renal artery stenosis History of CVA in adulthood Prostate enlargement Surgical History History of prostate surgery History of kidney surgery History of colonoscopy S/P carotid endarterectomy Hx laparoscopic cholecystectomy Family History Other CHF (congestive heart failure) Family history of internal cardiac defibrillator Family history of pacemaker Social History (Updated 09/15/24 @ 15:20 by Sowmya Salas RN) Smoking Status: Never smoker second hand exposure: No alcohol intake: never substance use type: denies use current occupational status: employed Travel in the last 8 weeks: None household members: spouse housing: house 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 current occupational exposures/hazards: No caffeine: Yes Review of Systems Review of Systems Review of systems:: pertinent systems reviewed and negative unless documented below Review of systems (narrative): Review of Systems: General: No recent weight changes, no fever, no sleep disturbances Respiratory: No cough, no shortness of air, no recurring pulmonary infections Cardiovascular/peripheral vascular: No chest pain, no palpitations, no edema, no shortness of breath Gastrointestinal: No new onset incontinence, normal bowel movements reported Genitourinary: No new onset incontinence Musculoskeletal: Low back pain, bilateral leg pain, bilateral knee pain, generalized joint Psychiatric: [Normal mood/affect] Neurological: [Denies weakness in extremities], [denies balance issues] Meds Home Medications and Allergies Home Medications ?Medication ?Instructions ?Recorded ?Confirmed ?Type allopurinol 300 mg tablet 300 mg PO DAILY Gout 06/02/18 09/15/24 History benazepril 40 mg tablet 40 mg PO DAILY High Blood Pressure 06/02/18 09/15/24 History clopidogrel 75 mg tablet 75 mg PO QDAY Blood thinner 09/19/19 09/15/24 History furosemide 20 mg tablet 20 mg PO DAILY Heart Failure 05/11/23 09/15/24 History pantoprazole 40 mg tablet,delayed 40 mg PO DAILY gerd 05/11/23 09/15/24 History release rosuvastatin 40 mg tablet (Crestor) 40 mg PO DAILY High Cholesterol 05/11/23 09/15/24 History acetaminophen 325 mg capsule 650 mg PO DAILY Pain 05/29/23 09/15/24 History (Tylenol) ondansetron 4 mg disintegrating 4 mg PO DAILY PRN nausea and 05/01/24 09/15/24 Rx tablet vomiting 5 days #10 tabs lidocaine 5 % topical patch See Rx Instructions topical 05/15/24 09/15/24 Rx .COMPLEX #15 ea amlodipine 2.5 mg tablet 2.5 mg PO DIRECTED BLOOD 06/16/24 09/15/24 History PRESSURE diclofenac sodium 75 mg 75 mg PO DIRECTED Pain 06/16/24 09/15/24 History tablet,delayed release [id number]-[id number] 1 cap PO TID #90 caps 06/16/24 09/15/24 Rx 36,000-114,000-180,000 unit capsule,delay rel (Creon) methocarbamol 750 mg tablet 750 mg PO DIRECTED Pain 06/16/24 09/15/24 History vonoprazan 20 mg tablet (Voquezna) 20 mg PO DAILY #90 tabs 06/28/24 09/15/24 Rx New Prescriptions to Start Prescriptions: Allergies Allergy/AdvReac Type Severity Reaction Status Date / Time Sulfa (Sulfonamide Allergy Intermediate Unknown Verified 06/16/24 09:06 Antibiotics) allergy reaction Objective Vital signs: Pulse Resp BP Pulse Ox O2 Del Method 84 18 155/78 H 98 Room Air 09/15/24 14:47 09/15/24 14:47 09/15/24 14:47 09/15/24 14:47 09/15/24 14:47 Narrative: Physical Exam: General: Alert and oriented x3, no acute distress, pleasant and cooperative Lungs: Respirations even and unlabored, symmetrical chest expansion Eyes: PERRL Musculoskeletal: Flexion and extension of bilateral knees somewhat guarded secondary to pain, [antalgic gait noted] Neurological: Speech clear, no gross sensory deficit Additional findings Additional findings: FINDINGS: Bones/joints: There is slight anterolisthesis of L4 on L5. There is mild multilevel spondylosis including small disc bulges and mild canal narrowing at L3-L4, and L4-L5, as well as severe canal narrowing at L5-S1. No acute fracture or subluxation is seen. Intraperitoneal space: Please see the dedicated interpretation of abdomen and pelvis for findings in that region. Soft tissues: Unremarkable. IMPRESSION: 1. No acute injury. Multilevel spondylosis including severe canal narrowing at L4-L5. 2. Please see the dedicated interpretation of abdomen and pelvis for findings in that region. Assessment and Plan *Assessment and plan (1) Chronic pain syndrome: Status: Acute Category: Medical Code(s): G89.4 - Chronic pain syndrome (2) Degenerative joint disease (DJD) of lumbar spine: Status: Chronic Qualifiers: Spinal osteoarthritis complication: with radiculopathy Qualified Code(s): M47.26 - Other spondylosis with radiculopathy, lumbar region Category: Medical Code(s): M47.816 - Spondylosis without myelopathy or radiculopathy, lumbar region (3) Lumbar radiculopathy: Status: Chronic Category: Medical Code(s): M54.16 - Radiculopathy, lumbar region (4) Bilateral knee pain: Status: Acute Qualifiers: Chronicity: unspecified Qualified Code(s): M25.561 - Pain in right knee; M25.562 - Pain in left knee Category: Medical Code(s): M25.561 - Pain in right knee; M25.562 - Pain in left knee Plan Patient is experiencing worsening pain in his bilateral knees with limited range of motion. Patient was counseled that he may benefit from repeat knee injections. Patient has had these in the past however was not through our office but does state that he is gotten more than 50% improvement lasting several months from these. Patient has continued conservative therapy including oral medication, heat and ice, topicals, at home stretching exercise for longer than 12 weeks that was physician guided. I did also discuss with the patient due to his chronic aches and pains that he may be a beneficial candidate of a intrathecal pain pump or spinal cord stimulator trial. Risk and benefits and educational handouts were given at today's visit and he would like to proceed forward with the stimulator trial option. Patient will be ordered a psychological evaluation and if he is deemed an appropriate candidate we will proceed forward with the stimulator trial at a later date. I did also discuss with the patient that I will order him a compounded cream and send in a presc ription of meloxicam 15 mg daily with a 2-week supply. Patient will be scheduled for bilateral knee intra-articular injections without fluoroscopy or ultrasound. Patient has been instructed to contact the clinic with any concerns before the next appointment. Dr. Oleary has reviewed this note and agrees with this plan of care. This note was dictated using voice recognition software and make contain errors or omissions. All injections are used with Lidocaine, Bupivacaine and Depo Medrol. Occasionally urine drug screen is needed to verify patient's compliance with our office pain contract. This is ordered based off specific treatments related to chronic pain with the potential to abuse certain medications.
== END 2024-09-15 23:59 | disposition home or self-care (01) ==
PROVIDERS: PCP Nurse Practitioner Family; Visit Provider Nurse Practitioner Family
DX: G89.4 Chronic pain syndrome (principal); M47.26 Other spondylosis with radiculopathy, lumbar region; M25.561 Pain in right knee; M25.562 Pain in left knee; Z73.89 Other problems related to life management difficulty
CPT/HCPCS: 99202; G0463

== ENCOUNTER 2024-09-27 14:03 | Day surgery (SDC) | payer BC, SELFPAY ==
[2024-09-27 14:32] VITALS: BP 160/87; PULSE 93; RESP 16; TEMP 36.6; O2SAT 97; BMI 34.2
[2024-09-27 14:54] VITALS: BP 137/94; PULSE 95; RESP 18; O2SAT 98
[2024-09-27] MEDS: LIDOCAINE 1% 5ML PF VIAL 5 ML (14:54)
[2024-09-27 14:56] VITALS: BP 137/94; PULSE 95; RESP 18; O2SAT 98
[2024-09-27 15:03] VITALS: BP 161/88; PULSE 91; RESP 16; O2SAT 97
--- NOTE | 2024-09-27 15:09 | EXP.PAIN.PRO ---
Procedure Date: 09/27/24 Time: 14:30 Anesthesiologist:: Vivek Burr CRNA Complications:: None Pre-procedure Diagnosis:: DJD bilateral knee. Chronic bilateral knee pain. Post-procedure Diagnosis:: Same. Indications for Procedure:: Patient is a very pleasant 59-year-old male who comes our clinic today for bilateral intra-articular knee injections. Patient describes bilateral knee pain as constant, dull, aching. Patient rates his pain 8/10. Procedure Details:: Details of the procedure explained to the patient. The patient taken procedure room placed in the sitting position. The over the right knee was cleaned using chlorhexidine as a cleansing solution. Using a 22-gauge inch and half needle the right knee joint was accessed from the anterior lateral position. After negative aspiration 4 cc of 1% lidocaine +4 cc of 0.25% Marcaine and 40 mg of Depo-Medrol was injected. Patient tolerated procedure without difficulty. There are no complications. Details of the procedure explained to the patient. The patient taken procedure room placed in the sitting position. The over the left knee was cleaned using chlorhexidine as a cleansing solution. Using a 22-gauge inch and half needle the left knee joint was accessed from the anterior lateral position. After negative aspiration 4 cc of 1% lidocaine +4 cc of 0.25% Marcaine and 40 mg of Depo-Medrol was injected. Patient tolerated procedure without difficulty. There are no complications. Plan and Disposition:: Patient was discharged without incident.
== END 2024-09-27 15:03 | disposition home or self-care (01) ==
PROVIDERS: PCP Nurse Practitioner Family; Visit Provider Nurse Anesthetist, Certified Registered
DX: M17.0 Bilateral primary osteoarthritis of knee (principal); M25.561 Pain in right knee; M25.562 Pain in left knee; G89.29 Other chronic pain
CPT/HCPCS: 20610; J1010

== ENCOUNTER 2024-10-13 08:33 | Outpatient (POV) | payer BC, SELFPAY ==
--- NOTE | 2024-10-13 09:04 | A.OFFVIS_ITS ---
[facility] Disclaimer: The information contained in this section may have been updated after the patient was seen, as this information can be updated by other users. Medical History Orgasm disorder Erectile dysfunction ever since prostate surgery in January of 2023 Sleep apnea History of gastroesophageal reflux (GERD) Atrial fibrillation CVA (cerebral vascular accident) Diverticulitis COVID-19 virus infection History of CVA (cerebrovascular accident) Encounter for pre-operative cardiovascular clearance Carotid artery stenosis HHD (hypertensive heart disease) CAD (coronary artery disease) Renal artery stenosis History of CVA in adulthood Prostate enlargement Surgical History History of prostate surgery History of kidney surgery History of colonoscopy S/P carotid endarterectomy Hx laparoscopic cholecystectomy Family History Other CHF (congestive heart failure) Family history of internal cardiac defibrillator Family history of pacemaker Social History Smoking Status: Never smoker second hand exposure: No alcohol intake: never substance use type: denies use current occupational status: employed Travel in the last 8 weeks: None household members: spouse housing: house 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 Today he rates his pain an 8 out of 10. He states that he had at least 50% improvement for a few weeks. He states that he is starting to feel like it is decreasing downward. He denies any new falls or injuries however does state that he has had several weeks of really bad cramping in his bilateral lower legs down into his feet. Patient states that he has been working on his knees a lot lately and it seems like that may have aggravated these cramping sensations. He states he has been to recently and had updated labs and is also in the process of getting an MRI ordered of his pelvis from rheumatology. Patient states that they are questioning whether or not he may have an autoimmune disorder. Patient does also state that he was on oral steroids as well and that he was having really high glucose levels enough that it was going into the 500s and he felt like his vision was affected. He did end up stopping this medication from his primary care's discretion. Patient states that has improved but he did have even urinary issues more so having urgency. Patient does have a history of having prostate surgery in the past. He does state that he is scheduled for a follow- up with the urologist coming up in the next week or 2. Patient does state that the compounded cream has helped that we prescribed. Patient does also state that he did complete his psychological evaluation and she did tell him that he passed. He does state he would still like to proceed forward with the stimulator trial in the future. His Abdirahman has been reviewed and is appropriate . Review of Systems: General: No recent weight changes, no fever, no sleep disturbances Respiratory: No cough, no shortness of air, no recurring pulmonary infections Cardiovascular/peripheral vascular: No chest pain, no palpitations, no edema, no shortness of breath Gastrointestinal: No new onset incontinence, normal bowel movements reported Genitourinary: No new onset incontinence Musculoskeletal: Lower leg pain Psychiatric: [Normal mood/affect] Neurological: [Denies weakness in extremities], [denies balance issues] Pain at rest (0-10 scale): 8 Objective Objective:: Physical Exam: General: Alert and oriented x3, no acute distress, pleasant and cooperative Lungs: Respirations even and unlabored, symmetrical chest expansion Eyes: PERRL Musculoskeletal: Flexion and extension of bilateral knees somewhat guarded secondary to pain, [antalgic gait noted] Neurological: Speech clear, no gross sensory deficit Has patient had previous pain injection?: Yes Percent improvement in pain since last injection: 50% Conservative treatment options previously tried: Home exercise plan Length of treatment: Longer than 12 weeks Meds Home Medications and Allergies Home Medications ?Medication ?Instructions ?Recorded ?Confirmed ?Type allopurinol 300 mg tablet 300 mg PO DAILY Gout 06/02/18 09/27/24 History benazepril 40 mg tablet 40 mg PO DAILY High Blood Pressure 06/02/18 09/27/24 History clopidogrel 75 mg tablet 75 mg PO QDAY Blood thinner 09/19/19 09/27/24 History furosemide 20 mg tablet 20 mg PO DAILY Heart Failure 05/11/23 09/27/24 History pantoprazole 40 mg tablet,delayed 40 mg PO DAILY gerd 05/11/23 09/27/24 History release rosuvastatin 40 mg tablet (Crestor) 40 mg PO DAILY High Cholesterol 05/11/23 09/27/24 History acetaminophen 325 mg capsule 650 mg PO DAILY Pain 05/29/23 09/27/24 History (Tylenol) ondansetron 4 mg disintegrating 4 mg PO DAILY PRN nausea and 05/01/24 09/27/24 Rx tablet vomiting 5 days #10 tabs lidocaine 5 % topical patch See Rx Instructions topical 05/15/24 09/27/24 Rx .COMPLEX #15 ea amlodipine 2.5 mg tablet 2.5 mg PO DIRECTED BLOOD 06/16/24 09/27/24 History PRESSURE diclofenac sodium 75 mg 75 mg PO DIRECTED Pain 06/16/24 09/27/24 History tablet,delayed release [id number] 1 cap PO TID #90 caps 06/16/24 09/27/24 Rx 36,000-114,000-180,000 unit capsule,delay rel (Creon) methocarbamol 750 mg tablet 750 mg PO DIRECTED Pain 06/16/24 09/27/24 History vonoprazan 20 mg tablet (Voquezna) 20 mg PO DAILY #90 tabs 06/28/24 09/27/24 Rx New Prescriptions to Start Prescriptions: Allergies Allergy/AdvReac Type Severity Reaction Status Date / Time Sulfa (Sulfonamide Allergy Intermediate Unknown Verified 06/16/24 09:06 Antibiotics) allergy reaction Assessment and Plan *Assessment and plan (1) Chronic pain syndrome: Status: Acute Category: Medical Code(s): G89.4 - Chronic pain syndrome (2) Degenerative joint disease (DJD) of lumbar spine: Status: Chronic Qualifiers: Spinal osteoarthritis complication: with radiculopathy Qualified Code(s): M47.26 - Other spondylosis with radiculopathy, lumbar region Category: Medical Code(s): M47.816 - Spondylosis without myelopathy or radiculopathy, lumbar region (3) Lumbar radiculopathy: Status: Chronic Category: Medical Code(s): M54.16 - Radiculopathy, lumbar region Plan I did discuss with the patient that the psychological evaluation is not yet in the computer and that we will have to have this official report to proceed forwa rd. I will send in a 2-week dose of ropinirole 0.25 mg at bedtime. We did review over that it could be possible abnormal labs such as low electrolytes however he states that they did not mention anything being out of range when he did his labs. Patient will return to clinic in 2 weeks for reevaluation of symptoms and plan of care. Patient has been instructed to contact the clinic with any concerns before the next appointment. Dr. Oleary has reviewed this note and agrees with this plan of care. This note was dictated using voice recognition software and make contain errors or omissions. All injections are used with Lidocaine, Bupivacaine and Depo Medrol. Occasionally urine drug screen is needed to verify patient's compliance with our office pain contract. This is ordered based off specific treatments related to chronic pain with the potential to abuse certain medications.
[2024-10-13 09:40] VITALS: BP 140/69; PULSE 79; RESP 18; O2SAT 98; BMI 33.7
== END 2024-10-13 23:59 | disposition home or self-care (01) ==
PROVIDERS: PCP Nurse Practitioner Family; Visit Provider Nurse Practitioner Family
DX: G89.4 Chronic pain syndrome (principal); M47.26 Other spondylosis with radiculopathy, lumbar region
CPT/HCPCS: 99212; G0463

== ENCOUNTER 2024-10-27 08:27 | Outpatient (POV) | payer BC, SELFPAY ==
--- NOTE | 2024-10-27 08:38 | A.OFFVIS_ITS ---
[facility] Disclaimer: The information contained in this section may have been updated after the patient was seen, as this information can be updated by other users. Medical History Orgasm disorder Erectile dysfunction ever since prostate surgery in January of 2023 Sleep apnea History of gastroesophageal reflux (GERD) Atrial fibrillation CVA (cerebral vascular accident) Diverticulitis COVID-19 virus infection History of CVA (cerebrovascular accident) Encounter for pre-operative cardiovascular clearance Carotid artery stenosis HHD (hypertensive heart disease) CAD (coronary artery disease) Renal artery stenosis History of CVA in adulthood Prostate enlargement Surgical History History of prostate surgery History of kidney surgery History of colonoscopy S/P carotid endarterectomy Hx laparoscopic cholecystectomy Family History Other CHF (congestive heart failure) Family history of internal cardiac defibrillator Family history of pacemaker Social History Smoking Status: Never smoker second hand exposure: No alcohol intake: never substance use type: denies use current occupational status: employed Travel in the last 8 weeks: None household members: spouse housing: house 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 Today he rates his pain a 8out of 10. He denies any new trauma or injury. At our last visit he was still having some additional labs and MRI of his pelvis from . They were doing a workup to see about possible autoimmune disorders. He states that he did not proceed forward with the MRI at this time. He does state today that he is still having a lot of spasms and not just his lower legs. He states these will even wake him up in the middle of the night. At her last visit we did order the patient ropinirole 0.25 mg at bedtime. Today he states that this did help and denies any side effects. He is requesting refills. To day he does spend a lot of emphasis on his pain being radiating down his left arm and does have a lot of of issues with having no strength into this extremity. He states he feels like it is constantly tight and does not have a good hospital director. Patient denies any specific trauma or injury. He states about 20+ years ago he did have rotator cuff repair on that side and does also have a history of work-related injury to his neck. He states he did have degeneration at C6-C7 and that it was a Worker's Comp. related injury and that they have This open for future. He states the pain is constant and does interfere with his ability perform activities of daily living such as cooking and cleaning. Patient did have neck surgery at that time but denies ever having any injections in his neck. He states he is interested in this option. Patient also makes mention today that his glucose has been really elevated. He states that he was put on oral steroids for about a month and this really did seem to increase his A1c as well as his daily glucose. He states that he has even had some vision changes. Patient states he has had this checked out at the eye doctor with no significant findings. Patient is scheduled to see his primary care next week and they are anticipating ordering additional labs. His Abdirahman has been reviewed and is appropriate. Review of Systems: General: No recent weight changes, no fever, no sleep disturbances Respiratory: No cough, no shortness of air, no recurring pulmonary infections Cardiovascular/peripheral vascular: No chest pain, no palpitations, no edema, no shortness of breath Gastrointestinal: No new onset incontinence, normal bowel movements reported Genitourinary: No new onset incontinence Musculoskeletal: Neck pain, left arm weakness numbness Psychiatric: [Normal mood/affect] Neurological: [Denies weakness in extremities], [denies balance issues] Pain at rest (0-10 scale): 8 Objective Objective:: Physical Exam: General: Alert and oriented x3, no acute distress, pleasant and cooperative Lungs: Respirations even and unlabored, symmetrical chest expansion Eyes: PERRL Musculoskeletal: Flexion and extension of cervical [spine] somewhat guarded secondary to pain, [antalgic gait noted] positive Spurling's test Neurological: Speech clear, no gross sensory deficit Has patient had previous pain injection?: No Conservative treatment options previously tried: Home exercise plan Length of treatment: Longer than 12 weeks Meds Home Medications and Allergies Home Medications ?Medication ?Instructions ?Recorded ?Confirmed ?Type allopurinol 300 mg tablet 300 mg PO DAILY Gout 06/02/18 10/13/24 History benazepril 40 mg tablet 40 mg PO DAILY High Blood Pressure 06/02/18 10/13/24 History clopidogrel 75 mg tablet 75 mg PO QDAY Blood thinner 09/19/19 10/13/24 History furosemide 20 mg tablet 20 mg PO DAILY Heart Failure 05/11/23 10/13/24 History pantoprazole 40 mg tablet,delayed 40 mg PO DAILY gerd 05/11/23 10/13/24 History release rosuvastatin 40 mg tablet (Crestor) 40 mg PO DAILY High Cholesterol 05/11/23 10/13/24 History acetaminophen 325 mg capsule 650 mg PO DAILY Pain 05/29/23 10/13/24 History (Tylenol) ondansetron 4 mg disintegrating 4 mg PO DAILY PRN nausea and 05/01/24 10/13/24 Rx tablet vomiting 5 days #10 tabs lidocaine 5 % topical patch See Rx Instructions topical 05/15/24 10/13/24 Rx .COMPLEX #15 ea amlodipine 2.5 mg tablet 2.5 mg PO DIRECTED BLOOD 06/16/24 10/13/24 History PRESSURE diclofenac sodium 75 mg 75 mg PO DIRECTED Pain 06/16/24 10/13/24 History tablet,delayed release [id number] 1 cap PO TID #90 caps 06/16/24 10/13/24 Rx 36,000-114,000-180,000 unit capsule,delay rel (Creon) methocarbamol 750 mg tablet 750 mg PO DIRECTED Pain 06/16/24 10/13/24 History vonoprazan 20 mg tablet (Voquezna) 20 mg PO DAILY #90 tabs 06/28/24 10/13/24 Rx ropinirole 0.25 mg tablet 0.25 mg PO HS #14 tabs 10/13/24 Rx New Prescriptions to Start Prescriptions: Allergies Allergy/AdvReac Type Severity Reaction Status Date / Time Sulfa (Sulfonamide Allergy Intermediate Unknown Verified 06/16/24 09:06 Antibiotics) allergy reaction Assessment and Plan *Assessment and plan (1) Chronic pain syndrome: Status: Acute Category: Medical Code(s): G89.4 - Chronic pain syndrome (2) Lumbar radiculopathy: Status: Chronic Category: Medical Code(s): M54.16 - Radiculopathy, lumbar region (3) Degenerative joint disease (DJD) of lumbar spine: Status: Chronic Qualifiers: Spinal osteoarthritis complication: with radiculopathy Qualified Code(s): M47.26 - Other spondylosis with radiculopathy, lumbar region Category: Medical Code(s): M47.816 - Spondylosis without myelopathy or radiculopathy, lumbar region Plan Patient is experiencing worsening pain in their neck with radiating tingling and burning sensations into their bilateral upper extremities however states the left side is worse. Patient did have limited range of motion of his cervical spine with a positive Spurling's test. I did discuss with the patient that I do believe they would benefit from a cervical epidural steroid injection. Risk and benefits were discussed with patient and they would like to proceed forward with this plan of care. Patient has tried and failed conservative therapy including oral medications, heat and ice, topicals, at home stretching exercise for longer than 12 weeks that was physician guided. Patient has not had any cervical epidurals in the past. Patient initially had a work-related injury 20+ years ago that initially started his neck problems. Patient will be scheduled for a VASYL C6-C7 under fluoroscopy. Patient is currently on blood thinners and we will reach out to his primary care to make sure he is able to stop this medication prior to this injection. We will also request a copy of his updated labs. Patient did complete a psychological evaluation however he was counseled that it is still not in the computer at this time we will call him once we have gotten this. Patient does state that he would like to proceed forward with the stimulator trial in future. I will also refill his ropinirole. Patient has been instructed to contact the clinic with any concerns before the next appointment. Dr. Oleary has reviewed this note and agrees with this plan of care. This note was dictated using voice recognition software and make contain errors or omissions. All injections are used with Lidocaine, Bupivacaine and Depo Medrol. Occasionally urine drug screen is needed to verify patient's compliance with our office pain contract. This is ordered based off specific treatments related to chronic pain with the potential to abuse certain medications.
[2024-10-27 09:11] VITALS: BP 137/76; PULSE 83; RESP 14; O2SAT 98; BMI 33.0
== END 2024-10-27 23:59 | disposition home or self-care (01) ==
PROVIDERS: PCP Nurse Practitioner Family; Visit Provider Nurse Practitioner Family
DX: G89.4 Chronic pain syndrome (principal); M47.26 Other spondylosis with radiculopathy, lumbar region; Z73.89 Other problems related to life management difficulty
CPT/HCPCS: 99212; G0463

== ENCOUNTER 2024-11-06 14:49 | Emergency (ER) | payer BC, SELFPAY ==
[2024-11-06] VITALS (12 sets, daily range): BP systolic 147–173; BP diastolic 77–98; PULSE 67–86; RESP 12–16; TEMP 36.6–37.3; O2SAT 97–99; BMI 32.4
--- NOTE | 2024-11-06 14:53 | ECG_ITS ---
APPROVED REPORT Exam: Resting ECG HR:76 bpm ECG Measurements Heart Rate 76 AXES LA 166 P 58 QRSd 96 QRS 49 QT 343 T 12 QTc 374 Conclusion SINUS RHYTHM NORMAL ECG UNCONFIRMED REPORT Electronically signed by : GILBERTO NAJERA, 11/09/2024 05:55:46
--- NOTE | 2024-11-06 15:15 | CT_ITS ---
PROCEDURE INFORMATION: Exam: CTA Chest With Contrast Exam date and time: 11/06/2024 3:59 PM Age: 59 years old Clinical indication: Pain; Chest pressure; Additional info: Pleuritic chest pain TECHNIQUE: Imaging protocol: Computed tomographic angiography of the chest with contrast. Exam focused on the arteries. 3D rendering (Not supervised by radiologist): MIP and/or 3D reconstructed images were created by the technologist. Radiation optimization: All CT scans at this facility use at least one of these dose optimization techniques: automated exposure control; mA and/or kV adjustment per patient size (includes targeted exams where dose is matched to clinical indication); or iterative reconstruction. Contrast material: ISOVUE 370; Contrast volume: 70 ml; Contrast route: INTRAVENOUS (IV); COMPARISON: CT ANGIO CHEST PE PROTOCOL 04/01/2023 11:51 PM FINDINGS: Tubes, catheters and devices: Watchman device in the left atrium Pulmonary arteries: Small left pulmonary embolus Filling defect in a small branch to the lingula. Series 5, image 66.. Aorta: Unremarkable. No aortic aneurysm. No aortic dissection. Lungs: Minimal bibasilar atelectasis Pleural spaces: Unremarkable. No pneumothorax. No pleural effusion. Heart: Unremarkable. No cardiomegaly. No pericardial effusion. Mediastinal space: 2 cm cystic structure in the anterior mediastinum. Unknown clinical significance Lymph nodes: Unremarkable. No enlarged lymph nodes. Liver: Hepatic steatosis Gallbladder and biliary ducts: Cholecystectomy Kidneys: 18 mm hyperdense mass medial left kidney series 5, image 131.. Bones/joints: Anterior cervical fusion Soft tissues: Unremarkable. IMPRESSION: 1. Small left pulmonary embolus Filling defect in a small branch to the lingula. Series 5, image 66.. 2. 18 mm hyperdense mass medial left kidney series 5, image 131.. Recommend nonemergent evaluation of the mass with MR without and with contrast THIS REPORT CONTAINS FINDINGS THAT MAY BE CRITICAL TO PATIENT CARE. The findings were verbally communicated via telephone conference with Rayne Villanueva at 5:13 PM EDT on 11/06/2024. The findings were acknowledged and understood. COMMENTS: Consistent with the [employer]'s Incidental Findings Committee white paper (J Am Darwin Radiol 2018): Any incidental renal lesion less than 1 cm or classified as too small to characterize, or any incidental cystic renal lesion characterized as simple-appearing, is likely benign. No follow-up imaging is recommended for these lesions per consensus recommendations based on imaging criteria.
--- NOTE | 2024-11-06 15:18 | [facility].EDCP ---
Discharge Plan Disposition Patient Disposition: Home, Self-Care Prescriptions Prescriptions: New methocarbamol 750 mg tablet 750 mg PO TID 7 Days Qty: 21 0RF No Action amlodipine 2.5 mg tablet 2.5 mg PO DIRECTED Patient Comments: TAKE 1 TABLET BY MOUTH ONCE DAILY FOR BLOOD PRESSURE methocarbamol 750 mg tablet 750 mg PO DIRECTED Patient Comments: TAKE 1 TABLET BY MOUTH TWICE DAILY NEEDED diclofenac sodium 75 mg tablet,delayed release (DR/EC) 75 mg PO DIRECTED Creon 36,000-114,000- 180,000 unit capsule,delayed release(DR/EC) 1 cap PO TID Qty: 90 5RF Rx Instructions: administer with meals and/or snacks Voquezna 20 mg tablet 20 mg PO DAILY Qty: 90 3RF acetaminophen [Tylenol] 325 mg Capsule 650 mg PO DAILY allopurinol 300 MG tablet 300 mg PO DAILY benazepril 40 MG tablet 40 mg PO DAILY clopidogrel 75 MG tablet 75 mg PO QDAY pantoprazole 40 mg tablet,delayed release (DR/EC) 40 mg PO DAILY furosemide 20 mg tablet 20 mg PO DAILY rosuvastatin [Crestor] 40 mg tablet 40 mg PO DAILY ondansetron 4 mg tablet,disintegrating 4 mg PO DAILY PRN (Reason: nausea and vomiting) 5 Days Qty: 10 0RF lidocaine 5 % adhesive patch,medicated See Rx Instructions .ROUTE .COMPLEX Qty: 15 0RF Rx Instructions: Apply 1 patch to most painful area for up to 12 hours. Remove after 12 hours and leave off for 12 hours before using a new patch ropinirole 0.25 mg tablet 0.25 mg PO HS Qty: 30 0RF Rx Instructions: administer 1-3 hours before bedtime Referrals Follow up/Referrals: Provider,Referral, MD [Referring] - See instructions Activity Restrictions/Add. Instructions Additional Instructions/Restrictions: As discussed at length on your CT scan there is a questionable subsegmental single pulmonary embolism. We had an extensive risk-benefit discussion regarding anticoagulation at the moment chose surveillance over anticoagulation. Please return with any significant worsening of your chest pain or shortness of breath. Additionally there was an 18 mm nodule noted on your left kidney which is concerning and needs to follow-up including a nonemergent MRI with and without contrast. Please follow-up with urologist to discuss that. Working diagnosis is musculoskeletal strain in the left chest wall which is the most likely explanation for your ongoing symptoms. Please take 1000 mg of Tylenol 3 times a day in addition to the muscle relaxer that was prescribed. Lastly a disc with images has been provided to you please take this to your learning and development coordinator and follow-up closely with them to discuss anticoagulation. Clinical Impressions Clinical Impression: Chest pain, pleuritic, Nodule of kidney, Single subsegmental pulmonary embolism without acute cor pulmonale, Diabetes Print Language Print Language: Sami Discharge ED Provider: Rayne Villanueva HPI General Chief Complaint: Chest Pain Stated Complaint: cp Time Seen by Provider: 11/06/24 14:59 History of Present Illness HPI narrative: Patient is a 51-year-old male presenting today with left pleuritic chest pain. 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 Pain is worse with movement and inspiration. States it is located left upper lateral aspect of his chest radiates to his back. Denies any abdominal pain and some chills infectious type symptoms. Does have a history of atrial fibrillation had a Watchman procedure in the past as well as ablation. He is on Plavix but after his is not on any further anticoagulation no history of DVT. Does not dyspnea lately has chronic lower extremity edema no history of heart failure or coronary artery disease. 10 years ago did have a left heart cath. His blood sugar 3-500s and has had no intervention from diabetes standpoint in the past. Related Data Home Medications ?Medication ?Instructions ?Recorded ?Confirmed allopurinol 300 mg tablet 300 mg PO DAILY Gout 06/02/18 10/27/24 benazepril 40 mg tablet 40 mg PO DAILY High Blood Pressure 06/02/18 10/27/24 clopidogrel 75 mg tablet 75 mg PO QDAY Blood thinner 09/19/19 10/27/24 furosemide 20 mg tablet 20 mg PO DAILY Heart Failure 05/11/23 10/27/24 pantoprazole 40 mg tablet,delayed 40 mg PO DAILY gerd 05/11/23 10/27/24 release rosuvastatin 40 mg tablet (Crestor) 40 mg PO DAILY High Cholesterol 05/11/23 10/27/24 acetaminophen 325 mg capsule 650 mg PO DAILY Pain 05/29/23 10/27/24 (Tylenol) amlodipine 2.5 mg tablet 2.5 mg PO DIRECTED BLOOD 06/16/24 10/27/24 PRESSURE diclofenac sodium 75 mg 75 mg PO DIRECTED Pain 06/16/24 10/27/24 tablet,delayed release methocarbamol 750 mg tablet 750 mg PO DIRECTED Pain 06/16/24 10/27/24 Previous Rx's ?Medication ?Instructions ?Recorded ondansetron 4 mg disintegrating 4 mg PO DAILY PRN nausea and 05/01/24 tablet vomiting 5 days #10 tabs lidocaine 5 % topical patch See Rx Instructions topical 05/15/24 .COMPLEX #15 ea pttpyx-[id number]-tymwvil 1 cap PO TID #90 caps 06/16/24 36,000-114,000-180,000 unit capsule,delay rel (Creon) vonoprazan 20 mg tablet (Voquezna) 20 mg PO DAILY #90 tabs 06/28/24 ropinirole 0.25 mg tablet 0.25 mg PO HS #30 tabs 10/27/24 methocarbamol 750 mg tablet 750 mg PO TID muscle spasm 7 days 11/06/24 #21 tabs Allergies Allergy/AdvReac Type Severity Reaction Status Date / Time Sulfa (Sulfonamide Allergy Intermediate Unknown Verified 06/16/24 09:06 Antibiotics) [facility] Dis[facility]: The information contained in this section may have been updated after the patient was seen, as this information can be updated by other users. Medical History Orgasm disorder Erectile dysfunction ever since prostate surgery in January of 2023 Sleep apnea History of gastroesophageal reflux (GERD) Atrial fibrillation CVA (cerebral vascular accident) Diverticulitis COVID-19 virus infection History of CVA (cerebrovascular accident) Encounter for pre-operative cardiovascular clearance Carotid artery stenosis HHD (hypertensive heart disease) CAD (coronary artery disease) Renal artery stenosis History of CVA in adulthood Prostate enlargement Surgical History History of prostate surgery History of kidney surgery History of colonoscopy S/P carotid endarterectomy Hx laparoscopic cholecystectomy Family History Other CHF (congestive heart failure) Family history of internal cardiac defibrillator Family history of pacemaker Social History (Reviewed 10/27/24 @ 09:15 by NENITA Lowry Smoking Status: Never smoker second hand exposure: No alcohol intake: never substance use type: denies use current occupational status: other Travel in the last 8 weeks: None household members: spouse housing: house 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 current occupational exposures/hazards: No caffeine: Yes Have you lived/traveled outside [place] in past 30 days?: No Contact w/someone who lives/traveled outside US past 30 days?: No Exposure to someone with infectious disease in past 14 days?: No Do you have a fever (greater than 100.4 F or 38 C)?: No Have you tested positive for COVID-19: No Exposed to someone with COVID-19 in past 14 days?: No Do you have a sore throat?: No Do you have a cough?: No Do you have any weakness?: No Do you have any diarrhea?: No Are you experiencing any unusual bleeding?: No Do you have any muscle aches/pain?: No Do you have any abdominal pain?: No Are you experiencing loss of taste or smell?: No Other Medical History Have you received the Flu Vaccine for this season: No Have you received the Pneumonia Vaccine: No ROS Obtained: Yes All systems reviewed & no additional complaints except as documented Physical Exam General General appearance: alert and in no apparent distress Respiratory Respiratory exam: Present normal lung sounds bilaterally and respiratory distress Cardiovascular Cardiovascular exam: Present regular rate and normal rhythm Abdominal Exam Abdominal exam: Present soft; Absent distention or tenderness Neurological Exam Neurological exam: Present alert and oriented X3 HEART Score HEART Score HEART Score assessment performed?: No History (anamnesis): Slightly suspicious ECG: Normal Age: >65 years Risk factors: 3 or more risk factors Troponin: </= normal limit HEART Score: 4 Procedures Miscellaneous Procedure Procedure Performed: Limited cardiac ultrasound Indication: Chest pain Identified structures: The heart was visualized in the parasternal long axis, parastenal short axis, apical four chamber and subxyphiod views. The IVC was visualized in the short axis and long axis at its entry into the right atrium. Findings: No evidence of significant DF depression or regional wall motion abnormality or significant right heart strain or pericardial effusion Impression: Unremarkable limited ultrasound of the heart Images were saved to permanent archive The study was technically adequate CPT: 42606-83 This study was performed by me, and I personally interpreted all images/videos. Based on my clinical judgement, these images were added and did not necessitate further imaging. Critical Care Critical Care Time Critical Care Time: No Medical Decision Making Abdirahman Inquiry Pt receiving controlled substance: No Vital Signs Vital Signs: 11/06/24 14:55 11/06/24 14:57 11/06/24 15:00 Temperature Temperature Source Pulse Rate 86 85 Pulse Rate [Left Radial] Respiratory Rate 13 Blood Pressure 163/94 H 173/96 H 157/91 H Blood Pressure [Right Arm] Blood Pressure Mean 113 Blood Pressure Mean [Right Arm] 02 Sat by Pulse Oximetry 99 97 Oxygen Delivery Method 11/06/24 15:12 11/06/24 15:22 11/06/24 15:30 Temperature 99.1 F Temperature Source Oral Pulse Rate 75 70 Pulse Rate [Left Radial] 75 Respiratory Rate 16 15 Blood Pressure 172/87 H Blood Pressure [Right Arm] 163/94 H Blood Pressure Mean Blood Pressure Mean [Right Arm] 117 02 Sat by Pulse Oximetry 97 97 Oxygen Delivery Method Room Air 11/06/24 16:00 11/06/24 16:15 11/06/24 16:30 Temperature Temperature Source Pulse Rate 67 71 72 Pulse Rate [Left Radial] Respiratory Rate 16 16 12 Blood Pressure 152/78 H 147/77 H Blood Pressure [Right Arm] Blood Pressure Mean Blood Pressure Mean [Right Arm] 02 Sat by Pulse Oximetry 97 99 97 Oxygen Delivery Method Room Air 11/06/24 17:00 11/06/24 17:30 Temperature Temperature Source Pulse Rate 72 73 Pulse Rate [Left Radial] Respiratory Rate 15 16 Blood Pressure 162/84 H 163/98 H Blood Pressure [Right Arm] Blood Pressure Mean Blood Pressure Mean [Right Arm] 02 Sat by Pulse Oximetry 99 98 Oxygen Delivery Method Room Air Room Air Lab Data Lab results reviewed: Yes I reviewed the patient's lab results. Labs: Lab Results 11/06/24 14:59: WBC 7.8, RBC 5.06, Hgb 15.5, Hct 42.6, MCV 84.2, MCH 30.6, MCHC 36.4 H, RDW 13.0, Plt Count 144, MPV 10.6 H, Neut % (Auto) 62.3, Lymph % (Auto) 28.6, Caswell % (Auto) 6.5, Eos % (Auto) 1.9, Baso % (Auto) 0.6, Neut # (Auto) 4.9, Lymph # (Auto) 2.2, Caswell # (Auto) 0.5, Eos # (Auto) 0.2, Baso # (Auto) 0.1, Sodium 137, Potassium 4.1, Chloride 104, Carbon Dioxide 26, Anion Gap 11.1, BUN 15, Creatinine 1.30 H, Estimated Creat Clear 90, Estimated GFR 57 L, Est GFR ( Amer) 69, Glucose 256 H, Hemoglobin A1c 10.3 H, Calcium 9.6, Total Bilirubin 1.2, AST 41, ALT 44, Alkaline Phosphatase 68, Troponin I < 0.01, NT-Pro-B Natriuret Pep 148 H, Total Protein 6.5, Albumin 4.5, Globulin 2.0, Albumin/Globulin Ratio 2.3 H, Lipase 146 11/06/24 14:59: Lipase 146 11/06/24 14:59 11/06/24 14:59 Response Orders (Tests/Meds): ED MEDICATIONS Generic Name Dose Route Start Last Admin Trade Name Freq PRN Reason Stop Dose Admin Sodium Chloride 10 ml 11/06/24 16:05 11/06/24 16:07 Sodium Chloride 0.9% 10ml Syr (Rad Only) IV 12/06/24 16:04 10 ml NEEDED PRN Administration Maintain IV Site Discontinued Medications Generic Name Dose Route Start Last Admin Trade Name Freq PRN Reason Stop Dose Admin Lactated Ringer's 1,000 mls @ 999 mls/hr 11/06/24 15:15 11/06/24 15:30 Lactated Ringer's 1000 Ml Bag IV 11/06/24 16:15 999 mls/hr .Q1H1M TAMMY Administration Iopamidol 70 ml 11/06/24 16:05 11/06/24 16:06 Iopamidol-370 (76%);100ml Bottle IV 11/06/24 16:06 70 ml ONCE ONE Administration Morphine Sulfate 4 mg 11/06/24 15:15 11/06/24 15:30 Morphine 4mg/Ml Syringe IV 11/06/24 15:16 4 mg ONCE ONE Administration Ondansetron HCl 4 mg 11/06/24 15:15 11/06/24 15:30 Ondansetron 4mg/2ml Vial IV 11/06/24 15:16 4 mg ONCE ONE Administration Sodium Chloride 50 ml 11/06/24 16:05 11/06/24 16:06 0.9 % Sodium Chloride 50 Ml Vial IV 11/06/24 16:06 50 ml ONCE ONE Administration ORDERS Category Date Time Status CT angio chest PE protocol Stat Cat Scan 11/06/24 15:15 Completed POCUS Point of Care (ER Only) Stat Exams 11/06/24 15:17 Taken BNP [NT Pro Brain Natriuretic Pep.] Stat Lab 11/06/24 14:59 Completed CBC w/Auto Diff [Complete Blood Count Auto Diff] Stat Lab 11/06/24 14:59 Completed CMP [Comprehensive Metabolic Panel] Stat Lab 11/06/24 14:59 Completed D-Dimer Stat Lab 11/06/24 14:59 Received HIV Combo Stat Lab 11/06/24 14:59 Received Hemoglobin A1C Stat Lab 11/06/24 14:59 Completed Hepatitis C Ab Qual. W/ RFX Stat Lab 11/06/24 14:59 Received Lipase Stat Lab 11/06/24 14:59 Completed Lipase Stat Lab 11/06/24 14:59 Completed Trop I [Troponin I] Stat Lab 11/06/24 14:59 Completed Troponin I Q3H Lab 11/06/24 18:30 Ordered Troponin I Q3H Lab 11/06/24 21:30 Ordered ECG Data Tracing #1: Attestation: I reviewed this ECG and interpreted as documented below: ECG Narrative: Sinus rhythm no acute ischemic changes noted no significant changes noted normal axis MDM Narrative Medical Decision Narrative: Patient is a 59-year-old male presenting pleuritic chest pain differential is broad including malignancy, infection pneumonia, pulmonary embolism, musculoskeletal pain, aortic dissection. Muscle strength diagnosis of exclusion. He does have some dyspnea associated with this as well. Certainly possible he also but he has no evidence of ischemia on his EKG at this point symptoms of week. A single troponin will be adequate for myocardial injury or coronary syndrome. Also limited bedside ultrasound of the heart to evaluate for any significant pathology. Will proceed with a CT of the blood work medications and reassess Reassessment 552 patient remains very stable hemodynamically stable no evidence of any hypoxemia or tachycardia. Is more comfortable than he was previously. CT scan was performed which I personally interpreted which I do not see any evidence of pulmonary embolism pulmonary infarction parenchymal lung abnormalities etc. I also reviewed patient's labs which were unremarkable aside from mildly elevated creatinine at 1.3 does have a hemoglobin A1c at 10.3 which is significantly elevated. The A1c was ordered at the request of the patient the patient's family to see where he was sitting as they wanted to follow-up outpatient with her primary care doctor as he has had no intervention yet for his diabetes. Unfortunately however radiology read a subsegmental pulmonary embolism. I reviewed the images and I still do not appreciate what they are seeing on their formal read. However this was communicated with the patient we reviewed the images and discussed the risk and benefits of anticoagulation. He does have a history of a stroke and has been on Xarelto in addition to his Plavix in the past. He hated the side effects from that medication. Patient does not have any signs or symptoms of a DVT he has no risk factors such as malignancy at the moment and I do not appreciate the pulm embolism that was read by radiology. However I did offer him treatment. We discussed the risk and benefits of the anticoagulation and patient stated that he would prefer not to take anticoagulation at the moment. Because of this he will closely follow-up with cardiology he understood the risks of not taken the medication including a propagation of the blood clot if in fact he does have DVTs. He will return to the emergency part with worsening chest pain or shortness of breath. However I do not see any lung parenchymal abnormalities on the CT scan no evidence of any infarction and this very small blood clot is likely not the explanation to his pain which is associated with movement and a large area of the lateral chest wall. Therefore working diagnosis from my perspective is still musculoskeletal pain. I have prescribed Robaxin has been advised to take Tylenol in addition to this. He will take his disc with images to his learning and development coordinator to further discuss anticoagulation and return with worsening of his symptoms. Additionally on the CT scan there is a 13 mm mass/nodule noted on the left kidney. Patient apparently is already aware of this and is followed by Dr. Garcia but will discuss this with him further an MRI was recommended which I told the patient about. Overall patient was very stable no evidence of an CO or other cardiopulmonary emergency. No evidence of intra-abdominal pathology such as pancreatitis etc. Patient was discharged in stable condition.
[2024-11-06 15:23] LABS: Basophils # 0.1 K/mm3 (0-0.2); Basophils % 0.6 % (0.1-2.0); Eosinophils # 0.2 K/mm3 (0.0-0.4); Eosinophils % 1.9 % (0.1-12.0); Hematocrit 42.6 % (42.0-52.0); Hemoglobin 15.5 g/dL (14.1-18.0); Lymphocytes # 2.2 K/mm3 (0.7-4.5); Lymphocytes % 28.6 % (10-50); Mean Corpuscular HGB Conc 36.4 g/dL (31.8-35.4); Mean Corpuscular Hemoglobin 30.6 pg (27.0-31.2); Mean Corpuscular Volume 84.2 fl (80-94); Mean Platelet Volume 10.6 fl (7.4-10.4); Monocytes # 0.5 K/mm3 (0.1-1.0); Monocytes % 6.5 % (1.7-9.3); Neutrophils # 4.9 K/mm3 (1.8-7.8); Neutrophils % 62.3 % (37.0-80.0); Platelet Count 144 K/mm3 (142-424); Red Blood Count 5.06 M/mm3 (4.60-6.20); White Blood Count 7.8 K/mm3 (4.8-10.8)
[2024-11-06 15:28] LABS: Albumin Level 4.5 g/dl (3.5-5.0); Chloride 104 mmol/L (98-107); Potassium 4.1 mmoL/L (3.5-5.1); Sodium 137 mmol/L (136-145)
[2024-11-06] MEDS: ONDANSETRON 4MG/2ML VIAL 4 MG IV (15:30)
[2024-11-06] MEDS: LACTATED RINGERS 1000ML 1,000 ML 999 ML IV (15:30)
[2024-11-06] MEDS: MORPHINE 4MG/ML SYRINGE 4 MG IV (15:30)
[2024-11-06 15:31] LABS: Alanine Aminotransferase 44 U/L (12-78); Albumin/Globulin Ratio 2.3 (1.1-1.8); Alkaline Phosphatase 68 U/L (38-126); Anion Gap 11.1 mEq/L (5-15); Aspartate Amino Transferase 41 U/L (17-59); Bilirubin,Total 1.2 mg/dl (0.2-1.3); Blood Urea Nitrogen 15 mg/dl (9-20); Calcium 9.6 mg/dl (8.4-10.2); Carbon Dioxide 26 mmol/L (22.0-30.0); Creatinine Clearance Estimated 90 mL/min (50-200); Estimated Glomerular Filt Rate 57 ml/min (>60); GFR (African American) 69 ML/MIN (>60); Glucose 256 mg/dl (74-100); Lipase 146 U/L (23-300); Total Protein,Serum 6.5 g/dl (6.3-8.2)
[2024-11-06 15:42] LABS: NT Pro Brain Natriuretic Pep. 148 pg/mL (0-125)
[2024-11-06 15:46] LABS: Troponin I < 0.01 ng/ml (0.00-0.034)
[2024-11-06] MEDS: 0.9 % SODIUM CHLORIDE 50 ML VIAL IV (16:06)
[2024-11-06] MEDS: IOPAMIDOL-370 (76%);100ML BOTTLE 70 ML IV (16:06)
[2024-11-06] MEDS: SODIUM CHLORIDE 0.9% 10ML SYR (RAD ONLY) 10 ML IV (16:07)
--- NOTE | 2024-11-06 16:12 | PC.NURSE ---
pt arrived back to room from ct
--- NOTE | 2024-11-06 16:35 | PC.NURSE ---
rahul called from lab to let TRN know that dimer analyzer machine is down. cleaning laborer is on hold with service. approx 30 minutes left for results.
[2024-11-06 17:06] LABS: Lipase 146 U/L (23-300)
--- NOTE | 2024-11-06 17:12 | PC.NURSE ---
SAKINA GUARDADO ON PHONE WITH MARLEE
--- NOTE | 2024-11-06 17:15 | PC.NURSE ---
TRN called to check on status of d dimer results, carmita in lab reports that rahul is on hold with service. unknown time for results.
--- NOTE | 2024-11-06 17:36 | PC.NURSE ---
ER AT BEDSIDE
[2024-11-06 17:45] LABS: Hemoglobin A1C 10.3 % (4.0-6.0)
--- NOTE | 2024-11-06 17:45 | PC.NURSE ---
called radiology for a disc for pt to take home with him per
[2024-11-06 17:59] LABS: D-Dimer 0.34 ug/mL (0.0-0.5)
[2024-11-06 18:02] LABS: HIV Combo NEGATIVE (Negative)
[2024-11-06 18:51] LABS: Hepatitis C Ab Qual. W/ RFX NEGATIVE (Negative)
== END 2024-11-06 18:02 | disposition home or self-care (01) ==
PROVIDERS: Emergency Provider Student in an Organized Health Care Education/Training Program; PCP Nurse Practitioner Family
DX: R07.89 Other chest pain (principal); I26.94 Multiple subsegmental thrombotic pulmonary emboli without acute cor pulmonale; D30.00 Benign neoplasm of unspecified kidney; E11.9 Type 2 diabetes mellitus without complications
CPT/HCPCS: 71275; 80053; 83036; 83690; 83880; 84484; 85025; 85378; 86803; 87389; 93005; 96361; 96374; 96375; 99285; J2270; J2405; J7120; Q9967

== ENCOUNTER 2024-11-16 09:41 | Outpatient (CLI) | payer BC, SELFPAY ==
--- NOTE | 2024-11-16 09:46 | XR_ITS ---
FINAL REPORT CLINICAL HISTORY: Left arm pain x 2 months..no trauma FINDINGS: 3 views of the left shoulder were obtained. There is no fracture or dislocation. There is mild degenerative joint disease. Soft tissues are unremarkable. IMPRESSION: No acute osseous abnormality of the left shoulder. Degenerative joint disease. Reviewed, Interpreted and Dictated by Sulema Hammond MD Transcribed by Rosetta Ca Authenticated and [facility]
--- NOTE | 2024-11-16 09:46 | XR_ITS ---
FINAL REPORT CLINICAL HISTORY: Left Arm pain x 2 months..no trauma FINDINGS: LEFT HUMERUS 2 views were obtained. There is no acute fracture or dislocation. Joint spaces are maintained. No acute soft tissue abnormality is seen. IMPRESSION: No acute bony abnormality. Reviewed, Interpreted and Dictated by Sulema Hammond MD Transcribed by Rosetta Ca Authenticated and [facility]
[2024-11-16 13:29] LABS: Creatinine,Urine Random 188 mg/dL (Not Estab.)
[2024-11-16 13:51] LABS: Microalbumin/Creatinine Ratio 129.8
== END 2024-11-16 23:59 | disposition home or self-care (01) ==
LOC: RAD 09:42
PROVIDERS: PCP Internal Medicine; Visit Provider Internal Medicine
DX: M79.602 Pain in left arm (principal); E11.9 Type 2 diabetes mellitus without complications
CPT/HCPCS: 73030; 73060; 82043; 82570

== ENCOUNTER 2025-01-06 06:59 | Outpatient (CLI) | payer BC, SELFPAY ==
--- NOTE | 2025-01-06 | CA_ITS ---
APPROVED REPORT EXAM: Comprehensive 2D, Doppler, and color-flow Echocardiogram Control Center Operator: Sunita Barros RT(R) Ht: 5 ft 10 in Wt: 225lbs BSA: 2.19 BP: 209/86 mmHg Indications: CP, HTN, hyperlipidemia, SOB, DM, fatigue, hx CVA, CAD, asthma, AFIB, PAD, preop for kidney surgery 01/10/25 2D Dimensions LVEF (Artis's) 58.90 % M: 52 - 72 LV Volume 106.60 mL M: 62 - 150 LV Volume Index 48.5 mL/m2 M: 34 - 74 LA Volume 27.60 mL LA Volume Index 12.55 mL/m2 (M/F) 16-34 EF AP4 49.00 % EF AP2 67.1 % EF BP 58.9 % GL Strain -14.1 % M-Mode Dimensions RVDd 1.94 cm (0.9-2.6) LA Diam 3.89 cm (1.9-4.0) LVDd 5.52 cm (3.5-5.7) LVDs 4.07 cm (3.5-5.7) IVSd 0.61 cm (0.6-1.1) PWd 0.72 cm (0.6-1.1) EF (Teich) 51.00% FS 26.30% EDV (Teich) 148.70 mL ESV (Teich) 72.90 mL LV Diastology E Decel Time 240 (160-240 msec) E/A Ratio 1.5 Mitral Valve MV E Max Ori. 108.0 (40-130 cm/s) MV A Velocity 74.0 (40-130 cm/s) E/A Ratio 1.45 MV PHT 70.0 ms Left Ventricle The left ventricle is normal size. The left ventricular systolic function is normal. The left ventricular ejection fraction is within the normal range. Proximal septal thickening is present. There is normal LV segmental wall motion. The left ventricular diastolic function is normal. LVEF is 60%. Right Ventricle Right ventricle is borderline dilated. The right ventricular systolic function is normal. Atria The left atrium size is normal. The right atrium size is normal. There is no Doppler evidence of interatrial shunt. The aortic valve Aortic Valve Is mildly thickened. There is no aortic valvular stenosis. Trace aortic regurgitation is present. Mitral Valve The mitral valve is normal in structure. No evidence of mitral valve stenosis. Trace tricuspid regurgitation. Tricuspid Valve Tricuspid valve is grossly normal in structure and function. Trace tricuspid regurgitation. There is insufficient TR jet to estimate RVSP. Pulmonic Valve The pulmonary valve is normal in structure. Trace pulmonic regurgitation. Great Vessels The aortic root is normal in size. IVC is normal in size and collapses >50% with inspiration. Pericardium There is no pericardial effusion. Other Information Study Quality: Fair Conclusion Normal biventricular systolic function. Borderline RV dilation. No significant valvular stenosis or regurgitation. Electronically signed by : Ayleen Campa MD 01/06/2025 22:38:18
--- OUTSIDE RECORDS SUMMARY | 2025-01-06 07:02 | XMS_ITS | Data Portability ---
Author Organization [facility] [place] [facility] [place] [facility] AD[facility] Address [address] [place] [address] Care Team Providers Care Certified Nutritionist Name Role Phone NASREEN PINTO Primary Care Provider [phone] Assessment No assessment recorded. Plan of Treatment Reminders Order Date Submit Date Provider Last Modified By Organization Details Last Modified Time Details Appointments None record ed. Lab None record ed. Referral None record ed. Procedures None record ed. Surgeries None record ed. Imaging None record ed. Medication Orders None record ed. Patient TargetsNo targets recorded. Patient InstructionsNo instructions recorded. Reason for Referral None Reported. Results Created Date Observation Date Name Description Value Unit Range Abnormal Flag Note LastModifiedBy Organization Detail LastModifiedTime Result Notes None recorded. Problems Name Problem SNOMED Code Status Onset Date Resolution Date Notes Provider Name and Address Organization Details Recorded Time Diverticulitis 777598493 Active 2021 Geoff arambula [facility] & [place] 2 09:12:12 Arthritis 8884749 Active 2021 Geoff arambula [facility] & [place] 2 09:12:23 Gout 38374870 Active 2021 Geoff arambula N[facility] C[facility] & [place] 2 09:12:30 Cerebrovascula r accident 048305271 Active 2016 Geoff arambula [facility] & [place] 2 09:15:18 Seasonal allergic rhinitis 523288871 Active 2021 Geoff arambula [facility] & [place] 2 09:15:36 History of calculus of kidney 018249471 Active 2021 Geoff arambula, [place] - [facility] - [place] [facility] [place] 2 09:15:49 Essential hypertension 67008906 Active 2021 Geoff Muñoz null, [place] - [facility] - [place] [facility] [place] 2 09:16:03 Hypercholester olemia 06349533 Active 2021 Geoff arambula, [place] - [facility] - [place] & [place] 2 09:16:13 Acid reflux 190323766 Active 2021 Geoff arambula, [place] - [facility] - [place] [facility] [place] 2 09:16:24 Problem Notes None recorded. Procedures Surgical History Date Name Laterality Status Provider Name and Address Organization Details Recorded Time 12/24/19 EMG/ Nerve Conduction Study completed Gabe Gutierrez M.D [address] [place] [address], [address], [place], [address], [place] - [facility] - [place] [facility] [place] 12/28/2023 13:01:51 12/10/19 EMG/ Nerve Conduction Study completed Gabe Gutierrez M.D [address] [place] [address] Drive, [address], [place], [address], [place] - [facility] & [place] 12/22/2023 10:14:40 08/24/19 05 Abdominal Surgery completed Colette Colon [place] - [facility] - [place] [facility] [place] 11/14/2024 13:38:23 Head or Neck Surgery completed Colette Colon [place] - [facility] - [place] [facility] [place] 11/14/2024 13:38:50 Abdominal Surgery completed Kati ne Colon [place] - [facility] - [place] [facility] [place] 11/14/2024 13:38:50 primary fusion of cervical spine completed Geoff CACERES - [facility] - [place] [facility] [place] 06/11/2022 09:17:26 laparoscopic cholecystectomy completed Geoff CACERES - [facility] - [place] & [place] 06/11/2022 09:17:37 repair of umbilical hernia completed Geoff CACERES - [facility] - [place] [facility] [place] 06/11/2022 09:18:07 Imaging Results None recorded. Procedure Notes None recorded. Medical Equipment None Reported. Allergies Allergen ID Allergen Name Allergen Category Reaction Reaction Severity Criticality Documentation Date Start Date Code Code System Note Provider Name and Address Organization Details Recorded Time 501406 amitripty line medicatio n Not available Not available Not available 11/14/2024 704 RxNorm NICKI Schulz [facility] & [place] 5 13:37:25 552136 Cymbalta medicatio n Not available Not available Not available 11/14/2024 37677 4 RxNorm NICKI Schulz [facility] & [place] 5 13:37:38 921888 atorvasta tin medicatio n Not available Not available Not available 11/14/2024 33411 RxNorm Colette arambula [facility] & [place] 5 13:37:50 12065 oxycodone medicatio n itching Not available low 06/11/2022 7804 RxNorm Geoff arambula [facility] & [place] 2 09:04:20 60935 Product containin g 3-hydroxy -3-methyl glutaryl- coenzyme A reductase inhibitor (product) medicatio n muscle cramps mild low 06/11/2022 25321 009 SNOMED Geoff arambula [facility] & [place] 2 09:04:49 75862 Substance with sulfonami de structure and antibacte rial mechanism of action (substanc e) medicatio n itching moderate Not available 06/11/2022 96363 8003 SNOMED NICKI Schulz [facility] & [place] 5 13:41:48 Medications Name Sig Start Date Stop Date Status Note LastModified by Organization Details LastModified Time carvedilol 6.25 mg tablet TAKE 1 TABLET BY MOUTH TWICE DAILY WITH FOOD active Not Available Not Available No t Available diltiazem CD 180 mg capsule,ext ended release 24 hr TAKE 1 CAPSULE BY MOUTH ONCE DAILY FOR 30 DAYS active Not Available Not Available No t Available sucralfate 1 gram tablet TAKE 1 TABLET BY MOUTH 4 TIMES DAILY FOR 7 DAYS active Not Available Not Available No t Available famotidine 40 mg tablet TAKE 1 TABLET BY MOUTH TWICE DAILY FOR STOMACH active Not Available Not Available No t Available clopidogrel 75 mg tablet TAKE 1 TABLET BY MOUTH ONCE DAILY active Not Available Not Available No t Available aspirin 81 mg tablet,rodolfo yed release TAKE 1 TABLET BY MOUTH ONCE DAILY IN THE MORNING active Not Available Not Available No t Available doxycycline monohydrate 100 mg tablet TAKE 1 TABLET BY MOUTH ONCE DAILY WITH A FULL GLASS OF WATER. DO NOT LIE DOWN FOR AT LEAST 30 MINUTES AFTER (START DOXYCYCLI NE AFTER LEVAQUIN COMPLETED ) active Not Available Not Available No t Available tramadol 50 mg tablet TAKE 1 TABLET BY MOUTH THREE TIMES DAILY IF NEEDED FOR SEVERE PAIN FOR UP TO 14 DAYS. 06/11 completed Not Available Not Available Not Available methocarbam ol 750 mg tablet TAKE 1 TABLET BY MOUTH 4 TIMES DAILY active Not Available Not Available No t Available tamsulosin 0.4 mg capsule TAKE 1 CAPSULE BY MOUTH AT BEDTIME 06/11 completed Not Available Not Available Not Available amlodipine 10 mg tablet TAKE 1 TABLET BY MOUTH ONCE DAILY active Not Available Not Available No t Available doxycycline monohydrate 100 mg capsule TAKE 1 CAPSULE BY MOUTH TWICE DAILY FOR 10 DAYS 06/11 completed Not Available Not Available Not Available cephalexin 500 mg capsule TAKE 1 CAPSULE BY MOUTH 4 TIMES DAILY active Not Available Not Available No t Available pantoprazol e 40 mg tablet,rodolfo yed release TAKE 1 TABLET BY MOUTH ONCE DAILY active Not Available Not Available No t Available flecainide 50 mg tablet TAKE 1 TABLET BY MOUTH TWICE DAILY active Not Available Not Available No t Available diclofenac sodium 75 mg tablet,rodolfo yed release TAKE 1 TABLET BY MOUTH TWICE DAILY NEEDED FOR PAIN active Not Available Not Available No t Available allopurinol 300 mg tablet TAKE 1 TABLET BY MOUTH ONCE DAILY active Not Available Not Available No t Available furosemide 20 mg tablet TAKE 1 TABLET BY MOUTH ONCE DAILY active Not Available Not Available No t Available gabapentin 100 mg capsule TAKE 1 CAPSULE BY MOUTH THREE TIMES DAILY 06/11 completed Not Available Not Available Not Available levofloxaci n 750 mg tablet TAKE 1 TABLET BY MOUTH ONCE DAILY FOR 7 DAYS active Not Available Not Available No t Available benazepril 40 mg tablet TAKE 1 TABLET BY MOUTH ONCE DAILY active Not Available Not Available No t Available methylpredn isolone 4 mg tablets in a dose pack TAKE DIRECTED ON PACKAGE active Not Available Not Available No t Available oxybutynin chloride 5 mg tablet TAKE 1 TABLET BY MOUTH THREE TIMES DAILY active Not Available Not Available No t Available amoxicillin 875 mg-rosy schmitt clavulanate 125 mg tablet TAKE 1 TABLET BY MOUTH TWICE DAILY 06/11 completed Not Available Not Available Not Available rosuvastati n 10 mg tablet TAKE 1 TABLET BY MOUTH ONCE DAILY FOR 30 DAYS active Not Available Not Available No t Available rosuvastati n 40 mg tablet TAKE 1 TABLET BY MOUTH ONCE DAILY active Not Available Not Available No t Available tadalafil 20 mg tablet TAKE 1 TABLET BY MOUTH EVERY 72 HOURS NEEDED FOR ERECTILE DYSFUNCTI ON active Not Available Not Available No t Available metoprolol tartrate 25 mg tablet TAKE 1 TABLET BY MOUTH TWICE DAILY active Not Available Not Available No t Available Xarelto 15 mg tablet TAKE 1 TABLET BY MOUTH ONCE DAILY active Not Available Not Available No t Available Myrbetriq 50 mg tablet,exte nded release TAKE 1 TABLET BY MOUTH ONCE DAILY active Not Available Not Available No t Available Vitals Date Recorded Body height Body mass index (BMI) Body weight Heart rate Body temperature Systolic blood pressure Diastolic blood pressure Provider Name and Address Organization Details Last Updated DateTime 2 177.8 cm 33.1 kg/m2 370195. 68 g 56 /min 98.5 [degF] 125 mm[Hg] 54 mm[Hg] Geoff Muñoz [facility] & [place] 2 09:11:44 Date Recorded Body height Body weight Body temperature Oxygen saturation Oxygen saturation in Arterial blood by Pulse oximetry Heart rate Provider Name and Address Organization Details Last Updated DateTime 4 177.8 cm 99528.5 4 g 97.3 [degF] 97 % 97 % 68 /min Ly Villanueva [facility] & [place] 4 08:14:09 Date Recorded Body height Body mass index (BMI) Body weight Body temperature Oxygen saturation Oxygen saturation in Arterial blood by Pulse oximetry Heart rate Provider Name and Address Organization Details Last Updated DateTime 4 177.8 cm 31.1 kg/m2 73450.5 4 g 97.3 [degF] 98 % 98 % 64 /min Ly Villanueva [facility] & [place] 4 08:20:20 Social History Question Answer Notes LastModified by [employer] Details LastModified Time Tobacco Smoking Status Never Smoker Geoff Muñoz [facility], [place] - [place] [facility] & [place] 06/11/2022 09:16:53 Do You Have An Advance Directive? No [email or web address] Information not available 11/14/2024 Are You Blind Or Do You Have Difficulty Seeing? No [email or web address] Information not available 11/14/2024 What Is Your Level Of Caffeine Consumption? Occasional [email or web address] Information not available 06/11/2022 What Was The Date Of Your Most Recent Tobacco Screening? 06/10/2022 [email or web address] Information not available 11/14/2024 Are You Passively Exposed To Smoke? No [email or web address] Information not available 11/14/2024 How Much Tobacco Do You Smoke? No Information not available 11/14/2024 How Many Years Have You Smoked Tobacco? 0 Information not available 11/14/2024 Sex: Unknown Functional Status Question Answer Note LastModified by [employer] Details LastModified Time Do you use any illicit or recreational drugs? No [email or web address] Information not available 06/11/2022 Do you or have you ever used any other forms of tobacco or nicotine? No [email or web address] Information not available 06/11/2022 What is your level of alcohol consumption? None [email or web address] Information not available 06/11/2022 Do you or have you ever used smokeless tobacco? [id number] [email or web address] Information n ot available 11/14/2024 What is your exercise level? Occasional Information not available 11/14/2024 Mental Status Question Answer Note LastModified by Organization D etails LastModified Time Do you feel stressed (tense, restless, nervous, or anxious, or unable to sleep at night)? [id number] [email or web address] Information not available 11/14/2024 Family History Relationship Description Onset Age of this Age Resolved Age Notes LastModified by Organization Details LastModified Time Father No current problems or disability [email or web address] Not available 06/11 09:16:31 Mother No current problems or disability [email or web address] Not available 06/11 09:16:31 Mother Hypercholest erolemia [email or web address] Not available 2024 13:40:08 Mother Asthma [email or web address] Not available 0 11/14/2024 13:40:19 Mother Anxiety disorder [email or web address] Not available 2024 13:40:32 Mother Depressive disorder [email or web address] Not available 2024 13:40:49 Mother Heart disease [email or web address] Not available 2024 13:40:59 Mother Kidney disease [email or web address] Not available 2024 13:41:08 Unspecified Relation Family history of seizure disorder Not available 2024 13:39:25 Unspecified Relation Family history of Respiratory disease [email or web address] Not available 2024 13:39:38 Unspecified Relation Malignant tumor of colon [email or web address] Not available 2024 13:39:48 Maternal Grandmother Alzheimer's disease [email or web address] Not available 2024 13:39:58 Sister Kidney disease [email or web address] Not available 2024 13:41:15 Sister Diverticulit is of colon [email or web address] Not available 10/23 13:42:24 Paternal Grandmother Alzheimer's disease [email or web address] Not available 2024 13:41:26 Medical History Condition Response Gout Y None N Emphysema N Depression N Glaucoma N Anesthesia Complications N Spine Problems Y Anxiety Disorder N Arthritis Y Hearing Loss Y Acid Reflux (GERD) Y Cancer N Stroke Y High Cholesterol Y Headaches N Fibromyalgia N Speech Delay N Kidney Disease N Allergies/Hayfever Y Heart Problems N Heart Conditions N Ear or Hearing Problems Y Migraines N Thyroid Problems N Developmental Delay N Anemia N Immune System Disorder N Heart Attack ([place]) N Diabetes N Bleeding Disorder N Tuberculosis N Hyperlipidemia Y Eczema Y Asthma N Sleep Disorder N GERD/Reflux N Heart Disease N Hypertension Y Past Encounters Encounter ID Performer Location Encounter Start Date Encounter Closed Date Diagnosis/Indication Diagnosis SNOMED-CT Code Diagnosis ICD10 Code Diagnosis Note [id number] Nani Bowden MD [facility] [facility] [place] [address] 06/11/2022 08:40:32 06/11/2022 09:24:00 Bilateral tinnitus 7130509471 102 H93.13 No concerning findings on exam. His tinnitus is longstandi ng and he has not other concerning findings. High frequ ency sensorineural hearing loss of bilateral ears 3040651788 340633 H90.3 He will proceed with hearing aids with Jamie Martinez. [id number] JAMIE MARTINEZ [facility] [facility] [place] [address] 07/30/2022 09:06:59 07/30/2022 09:17:15 Sensorineural hearing loss 33408151 H90.3 [id number] Kasey Alcocer [facility] [address],[facility] [address] [place] [address] 12/10/2023 08:08:32 12/10/2023 08:49:15 Lumbosacral radiculitis 59783855 M54.17 Numbness 54176649 R20.0 [id number] Kasey Alcocer [facility] [address] [place] [id number] 12/24/2023 08:07:40 12/24/2023 08:43:48 Bilateral carpal tunnel syndrome 0200694121 6295814 G56.03 Hyperesthesia 45618397 R 20.3 Abnormal sensation 86859 1999 R20.8 Health Concerns Section Related Observation LastModified by Organization Detai ls LastModified Time None Recorded Concern Status LastModified by Organization Details LastModified Time None Recorded Advance Directives Directive N: Payers Insurance Date Sequence Insurance Name Policy Number Policy Puri Covered Member ID Puri Member ID Guarantor Name 11/14/2024 1 [employer]: [employer] [place] [id number] Noel Tyson [id number] Noel Tyson Notes Date Note Type Note Provider Name and Address Organization Details Recorded Time 06/11/2022 text/html 57yo male in the office today after seeing Richard root for hearing aids. Patient states he qualifies for hearing aids through [facility]. Has seen Dr. Alvarez for the hearing test. Due to his longstanding tinnitus, [facility] wanted him to have medical clearance before they would approve the hearing aids. Patient states he had a stroke five years ago. Cannot remember if he had tinnitus prior to that stroke. Reports his tinnitus is bilateral and longstanding. 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 Nani Bowden MD [address], [place], [address], [facility] & [place] 06/11/2022 10:22:28 07/30/2022 text/html Mr. Tyson was seen today for a hearing aid fitting via [facility]. JAMIE MARTINEZ [address], [place], [address], [facility] & [place] 07/30/2022 09:44:09
[2025-01-06 07:15] VITALS: BMI 33.0
[2025-01-06 07:36] VITALS: BP 154/86; PULSE 55; RESP 16; O2SAT 98
[2025-01-06 07:45] LABS: Anion Gap 10.9 mEq/L (5-15); Blood Urea Nitrogen 18 mg/dl (9-20); Calcium 9.3 mg/dl (8.4-10.2); Carbon Dioxide 26 mmol/L (22.0-30.0); Chloride 106 mmol/L (98-107); Creatinine Clearance Estimated 119 mL/min (50-200); Estimated Glomerular Filt Rate 77 ml/min (>60); GFR (African American) 93 ML/MIN (>60); Glucose 107 mg/dl (74-100); Potassium 3.9 mmoL/L (3.5-5.1); Sodium 139 mmol/L (136-145)
[2025-01-06 08:09] VITALS: BP 146/95; PULSE 62; RESP 16; O2SAT 98
[2025-01-06 08:12] VITALS: BP 140/71; PULSE 60; RESP 16; O2SAT 96
[2025-01-06 08:15] VITALS: BP 110/51; PULSE 64; RESP 16; O2SAT 97
[2025-01-06] MEDS: 0.9 % SODIUM CHLORIDE 50 ML VIAL IV (08:20)
[2025-01-06] MEDS: SODIUM CHLORIDE 0.9% 10ML SYR (RAD ONLY) 10 ML IV (08:21)
[2025-01-06] MEDS: IOPAMIDOL-370 (76%);100ML BOTTLE 85 ML IV (08:21)
--- NOTE | 2025-01-06 08:24 | CA_ITS ---
FINAL REPORT TECHNIQUE: Ultrasound images of the kidneys were obtained. Duplex Doppler of the renal arteries, RAR and RI also obtained. Spectral analysis was performed. CLINICAL HISTORY: HTN, Preop FINDINGS: Aortic velocity is measured at 107 cm/sec. The right kidney measures 10.4 cm in length. No hydronephrosis, cortical thinning, or mass. RAR is 0.71-0.76. Peak systolic velocity is 211 cm/sec. RI is 1.98. Less than 60% right renal artery stenosis The left kidney measures 11.2 cm in length. No hydronephrosis, cortical thinning, or mass. RAR is 0.76-0.78. Peak systolic velocity is 183 cm/sec. RI is 1.71. Less than 60% left renal artery stenosis IMPRESSION: Less than 60% right renal artery stenosis. RI's normal bilaterally. Reviewed, Interpreted and Dictated by Sulema Hammond MD Transcribed by Aga Jackson Authenticated and [facility]
--- NOTE | 2025-01-06 08:30 | CT_ITS ---
APPROVED REPORT Syrup Filterer: CLINICAL INDICATION Chest Pain TECHNIQUE Image Acquisition: A 128 slice MDCT scanner ([employer] Saphoa View) was used for data acquisition. A noncontrast coronary calcium scan was performed. A CT attenuation threshold of 130 Hounsfield units (HU) was used for the detection of calcium in contiguous voxels of 1 sq mm in area to be counted as individual lesions. Bolus tracking in the ascending aorta with a threshold of 180 HU was performed. Immediately afterwards, ECG synchronized cardiac CT was then performed from the cardiac base to apex using retrospective gating with ECG tube current modulation. A total of 85 mL of Isovue 370 mg/mL contrast medium was administered at 5 mL/sec followed by a saline flush using a biphasic injection protocol. A tube voltage of 120 KVp was used. The patient received the following medications prior to the cardiac CT. 0.8 mg of sublingual nitroglycerin The average heart rate at the time of acquisition was 65 bpm and regular. Image Reconstruction Transaxial images were reconstructed at 0.67 mm slide thickness. Data was reviewed interactively on an advanced workstation capable of 2 and 3-dimensional displays in all conventional reconstruction formats, including multiplanar reformations, maximum intensity projections, curved multiplanar reformations, and volume rendered reconstructions. When applicable, selected routine images describing the relevant coronary anatomy and pathology were saved and sent to PACS. Complications None Technical Quality Overall image quality was good. Coronary artery opacification was adequate. Total DLP (Dose-Length Product) is 1559.5 mGy-cm. The reported value represents the total of one or more individual components during the CT acquisition of this date and at this time, and as such, the same value may appear in more than one CT report depending on the interpreting/reporting physicians. COMPARISON None FINDINGS CT Coronary Calcium Scoring LMA (Left Main Artery) = 0 LAD (Left Anterior Descending) = 0 LCX (Left Coronary Circumflex) = 0 RCA (Right Coronary Artery) = 0 Total Calcium Score = 0 using the AJ-130 method. The interpretation of the calcium heart score is based on the following continuum*: 0 = no calcified plaque detected (risk of coronary artery disease is very low ??? less than 5%) 1-10 = calcium detected in extremely minimal levels (risk of coronary diseases is still low ??? less than 10%) 11-100 = mild levels of plaque detected with certainty (mild or minimal narrowing of heart arteries is likely) 101-400 = definite,at least moderate levels of plaque detected (relatively high risk of a heart attack within 3-5 years) >401-999 = extensive levels of plaque detected (high risk of heart attack, high levels of vascular disease are present, high likelihood of at least one significant coronary narrowing) *The calcium heart score quantifies the burden of coronary calcification/plaque in the coronary arteries. The calcium heart score is not able to evaluate the presence or burden of non-calcified (i.e. soft) plaque. There is mild calcification in the aortic valve. Coronary CT Angiography The coronary arterial system is right dominant. Quantitative Stenosis Grading: Left Main (LM): The left main originates normally from the left sinus of Valsalva. The LM bifurcates into the left anterior descending artery and left circumflex artery. The LM is patent with no evidence of atherosclerosis. Left Anterior Descending (LAD) and Diagonal Branches: The LAD gives off 3 diagonal branch(es). The LAD and its branches are patent with no evidence of atherosclerosis. There is no evidence of LAD-myocardial bridge. Left Circumflex (LCX) and Obtuse Marginals (OM): The LCX gives off 1 Obtuse Marginal (OM) branch(es). The LCX and its branches are patent with no evidence of atherosclerosis. Right Coronary Artery (RCA): The RCA originates normally from the right sinus of Valsalva. The RCA gives off a posterior descending artery (PDA) and posterolateral (PL) branches. There is mild noncalcified plaque in the ostial RCA, with 25-49% luminal stenosis. Non-Coronary Cardiac Findings: Analysis of the left ventricular (LV) structure and function was performed after 3-D reconstruction of the LV from axial images, with user-corrected automatic contouring for assessment of LV volumes and user-defined reconstruction from oblique planes for measurement of 3-D cardiac structure and function. -The left ventricle systolic function is normal. -An MARGIE occlusion device is incidentally noted. -No pericardial thickening or calcification. -Central and branch pulmonary arteries in the [id number] are unremarkable. -Thoracic aorta within the visualized thoracic aortic-branches in the [id number] is unremarkable. Extracardiac Structures No significant extra-cardiac findings. Note, however, that this study is focused on the cardiac findings. IMPRESSION - Absence of coronary calcification with an Agatston score = 0 using the AJ-130 method. -No evidence of significant flow-limiting atherosclerosis of the coronary arteries. -Mild, non-obstructive, non-calcified atherosclerotic coronary disease in the ostial RCA, with no evidence of significant luminal stenosis in the coronary arteries. -CAD-RADS 2. Management recommendations per ACC/AHA guidelines*, as clinically appropriate. -An MARGIE occlusion device is incidentally noted. *Recommendations: CAD RADS 0: Reassurance. Consider non-atherosclerotic causes of chest pain. CAD RADS 1: Consider non-atherosclerotic causes of chest pain. Consider preventive therapy and risk factor modification. CAD RADS 2: Consider non-atherosclerotic causes of chest pain. Consider preventive therapy and risk factor modification, particularly for patients with nonobstructive plaque in multiple segments. CAD RADS 3: Consider further functional testing. Consider symptom-guided anti-ischemic and preventive pharmacotherapy as well as risk factor modification per published guideline statements. CAD RADS 4A: Consider further functional testing or invasive coronary angiography with revascularization per published guideline statements. Consider symptom-guided anti-ischemic and preventive pharmacotherapy as well as risk factor modification per published guideline statements. CAD RADS 4B: Invasive coronary angiography recommended with revascularization per published guideline statements. Consider symptom-guided anti-ischemic and preventive pharmacotherapy as well as risk factor modification per published guideline statements. CAD RADS 5: Consider invasive angiography and/or viability assessment with revascularization per published guideline statements. Consider symptom-guided anti-ischemic and preventive pharmacotherapy as well as risk factor modification per published guideline statements. CRITICAL RESULT None COMMUNICATION Per this written report The coronary and cardiac findings of this CCTA were reviewed, reported, and signed by Lauro Campa MD (Harness Fitter) Conclusion Electronically signed by : Ayleen Campa MD 01/09/2025 13:17:08
--- NOTE | 2025-01-06 10:15 | CA_ITS ---
FINAL REPORT CLINICAL HISTORY: HLD, DM, HTN, SOB, CAD, AFIB, PE FINDINGS: DUPLEX VENOUS SONOGRAPHY OF THE BILATERAL LOWER EXTREMITIES Multiple transverse and longitudinal scans were performed of the femoropopliteal deep venous systems, with augmentation and compression maneuvers. FINDINGS: Normal phasic flow was noted in the visualized deep venous systems. No intraluminal increased echogenicity is noted to suggest thrombus. There is normal compression and augmentation of the venous structures. No abnormal venous collaterals are seen. There are small bilateral popliteal cysts. IMPRESSION: No evidence of deep venous thrombosis of the bilateral lower extremities. Reviewed, Interpreted and Dictated by Sulema Hammond MD Transcribed by Rosetta Ca Authenticated and . [facility]
--- NOTE | 2025-01-06 13:00 | CA_ITS ---
FINAL REPORT TECHNIQUE: Perez scale, color and spectral doppler images of the bilateral carotid arteries were obtained. CLINICAL HISTORY: hx CVA, CAD, AFIB, PAD, history of right carotid stent, hx of renal artery stents, HTN, HLD, DM, SOB, fatigue. FINDINGS: Peak systolic velocity in the right internal carotid artery is 92 cm/sec. The internal carotid to common carotid artery ratio is 1.9. There is no significant carotid artery stenosis and no significant plaque formation. The right vertebral artery is normal in direction. Peak systolic velocity in the left internal carotid artery is 288 cm/sec. The internal carotid to common carotid artery ratio is 3.8. A moderate amount of plaque formation is noted. There is greater than 70% carotid artery stenosis. The left vertebral artery is normal in direction. IMPRESSION: Less than 50% right carotid artery stenosis. Greater than 70% left carotid artery stenosis. Reviewed, Interpreted and Dictated by Sulema Hammond MD Transcribed by Rosetta Ca Authenticated and [facility]
== END 2025-01-06 23:59 | disposition home or self-care (01) ==
LOC: RAD 07:00
PROVIDERS: PCP Internal Medicine; Visit Provider Physician Assistant
DX: I65.22 Occlusion and stenosis of left carotid artery (principal); I25.10 Atherosclerotic heart disease of native coronary artery without angina pectoris; I70.1 Atherosclerosis of renal artery; J43.9 Emphysema, unspecified; I73.9 Peripheral vascular disease, unspecified; I48.0 Paroxysmal atrial fibrillation
CPT/HCPCS: 75574; 80048; 93306; 93880; 93970; 93976; Q9967

== ENCOUNTER 2025-02-27 08:10 | Day surgery (SDC) | payer BC, SELFPAY ==
[2025-02-27 09:41] VITALS: BMI 32.7
[2025-02-27] MEDS: LACTATED RINGERS 1000ML 1,000 ML 50 ML IV (09:43)
[2025-02-27 09:49] VITALS: BP 150/66; PULSE 55; RESP 18; TEMP 36.1; O2SAT 100
--- NOTE | 2025-02-27 10:05 | EXP.ANES.CKL ---
[facility] Disclaimer: The information contained in this section may have been updated after the patient was seen, as this information can be updated by other users. Medical History Pulmonary embolism Renal artery stenosis Pulmonary emphysema Left renal mass Chest pain PAF (paroxysmal atrial fibrillation) Orgasm disorder Erectile dysfunction Sleep apnea History of gastroesophageal reflux (GERD) Atrial fibrillation CVA (cerebral vascular accident) Diverticulitis COVID-19 virus infection History of CVA (cerebrovascular accident) Encounter for pre-operative cardiovascular clearance Carotid artery stenosis HHD (hypertensive heart disease) CAD (coronary artery disease) History of CVA in adulthood Prostate enlargement Surgical History History of prostate surgery History of kidney surgery History of colonoscopy S/P carotid endarterectomy Hx laparoscopic cholecystectomy Family History Other CHF (congestive heart failure) Family history of internal cardiac defibrillator Family history of pacemaker Social History Smoking Status: Never smoker second hand exposure: No alcohol intake: never substance use type: denies use current occupational status: employed Travel in the last 8 weeks?: None household members: spouse housing: house 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 current occupational exposures/hazards: No caffeine: Yes Have you lived/traveled outside [place] in past 30 days?: No Contact w/someone who lives/traveled outside US past 30 days?: No Exposure to someone with infectious disease in past 14 days?: No Do you have a fever (greater than 100.4 F or 38 C)?: No Have you tested positive for COVID-19?: No Exposed to someone with COVID-19 in past 14 days?: No Do you have a sore throat?: No Do you have a cough?: No Do you have any weakness?: No Do you have any diarrhea?: No Are you experiencing any unusual bleeding?: No Do you have any muscle aches/pain?: No Do you have any abdominal pain?: No Are you experiencing loss of taste or smell?: No [facility] Anesthesia Checklist Patient Identification Patient Identification: Arm Band and Verbal (Name & ) Structural Data Admitted From: Home Planned Operative Procedure/s: colonscopy Consent for Planned Operative Procedure(s) Verified: Yes Verified Documents: Surgical Consent and History and Physical NPO Status Verified Time NPO: 00:00 Additional verifications Anesthesia Reactions: No Hx Blood Transfusions: No Blood Transfusion Reaction: No Airway Assessment Mallampati Score:: Class II Dentition: Good Dentition Neurological Assessment Level of Consciousness: Awake, Alert and Appropriate Hx Seizures: No Anesthesia Plan Anesthesia Risk discussed: Yes Anesthesia Plan: Verified ASA Class: III Anesthesia Type: MAC
[2025-02-27 10:14] LABS: POC Glucose,Bedside 118 (70-110)
--- NOTE | 2025-02-27 10:19 | EXP.HP ---
History of Present Illness *Admission Date: 02/27/25 *Reason for visit:: Personal history of colon polyps *History of present illness: Mr. Tyson is a 60-year-old gentleman who is here for screening colonoscopy secondary to personal history of colon polyps. The examination is deemed medically necessary for screening colonoscopy. The patient has been seen, interviewed and examined prior to the procedure by both myself and the anesthesia provider. [facility] Disclaimer: The information contained in this section may have been updated after the patient was seen, as this information can be updated by other users. Medical History Pulmonary embolism Renal artery stenosis Pulmonary emphysema Left renal mass Chest pain PAF (paroxysmal atrial fibrillation) Orgasm disorder Erectile dysfunction Sleep apnea History of gastroesophageal reflux (GERD) Atrial fibrillation CVA (cerebral vascular accident) Diverticulitis COVID-19 virus infection History of CVA (cerebrovascular accident) Encounter for pre-operative cardiovascular clearance Carotid artery stenosis HHD (hypertensive heart disease) CAD (coronary artery disease) History of CVA in adulthood Prostate enlargement Surgical History History of prostate surgery History of kidney surgery History of colonoscopy S/P carotid endarterectomy Hx laparoscopic cholecystectomy Family History Other CHF (congestive heart failure) Family history of internal cardiac defibrillator Family history of pacemaker Social History Smoking Status: Never smoker second hand exposure: No alcohol intake: never substance use type: denies use current occupational status: employed Travel in the last 8 weeks?: None household members: spouse housing: house 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 current occupational exposures/hazards: No caffeine: Yes Have you lived/traveled outside [place] in past 30 days?: No Contact w/someone who lives/traveled outside [place] past 30 days?: No Exposure to someone with infectious disease in past 14 days?: No Do you have a fever (greater than 100.4 F or 38 C)?: No Have you tested positive for COVID-19?: No Exposed to someone with COVID-19 in past 14 days?: No Do you have a sore throat?: No Do you have a cough?: No Do you have any weakness?: No Do you have any diarrhea?: No Are you experiencing any unusual bleeding?: No Do you have any muscle aches/pain?: No Do you have any abdominal pain?: No Are you experiencing loss of taste or smell?: No Other Medical History Have you received the Flu Vaccine for this season: No Have you received the Pneumonia Vaccine: No Review of Systems Review of Systems Review of systems (narrative): Negative *Cardiovascular Comments: Negative *Gastrointestinal Comments: Negative *Genitourinary Comments: Negative *Musculoskeletal Comments: Negative *Neurologic Comments: Negative Meds Home Medications and Allergies Home Medications ?Medication ?Instructions ?Recorded ?Confirmed ?Type furosemide 20 mg tablet 20 mg PO DAILY Heart Failure 05/11/23 02/27/25 History allopurinol 300 mg tablet 300 mg PO DAILY Gout #90 tabs 11/16/24 02/27/25 Rx benazepril 40 mg tablet 40 mg PO DAILY High Blood Pressure 11/16/24 02/27/25 Rx #90 tabs pantoprazole 40 mg tablet,delayed 40 mg PO DAILY gerd #90 tabs 11/16/24 02/27/25 Rx release rosuvastatin 40 mg tablet (Crestor) 40 mg PO DAILY High Cholesterol 11/16/24 02/27/25 Rx #90 tabs amlodipine 10 mg tablet 10 mg PO DAILY #90 tabs 11/23/24 02/27/25 Rx blood-glucose meter (Blood Glucose #1 ea 11/23/24 02/08/25 Rx Monitoring kit) hydralazine 25 mg tablet 25 mg PO TID PRN SBP >180 #90 tabs 11/23/24 02/27/25 Rx levalbuterol tartrate 45 2 inh inhalation Q6H PRN shortness 11/23/24 02/27/25 Rx mcg/actuation aerosol inhaler of breath or wheezing 90 days #15 (Xopenex HFA) grams blood-glucose sensor (FreeStyle #3 ea 12/06/24 02/08/25 Rx Konstantin 3 Plus Sensor device) ciclopirox 0.77 % topical cream 1 applic topical BID fungal nails 12/27/24 02/27/25 Rx 6 months #90 grams blood-glucose meter (Accu-Chek #1 ea 01/12/25 02/08/25 History Guide Glucose Meter) metformin 1,000 mg tablet 1,000 mg PO BID #60 tabs 02/08/25 02/27/25 Rx ondansetron 4 mg disintegrating 4 mg PO Q6H PRN Nausea 02/08/25 02/27/25 History tablet ropinirole 0.25 mg tablet See Rx Instructions .Route 02/16/25 02/27/25 Rx .COMPLEX #30 tabs blood sugar diagnostic (Accu-Chek #50 ea 02/18/25 Rx Guide test strips) lancets (Accu-Chek Softclix #100 ea 02/18/25 Rx Lancets) tizanidine 4 mg tablet See Rx Instructions .Route 02/18/25 02/27/25 Rx .COMPLEX #30 tabs New Prescriptions to Start Prescriptions: Allergies Allergy/AdvReac Type Severity Reaction Status Date / Time Sulfa (Sulfonamide Allergy Intermediate Unknown Verified 02/27/25 09:45 Antibiotics) allergy reaction Exam Data for Last 24 hours Vital signs and Labs for Last 24 Hours: Temp Pulse Resp BP Pulse Ox O2 Del Method 97.0 F L 55 L 18 150/66 H 100 Room Air 02/27/25 09:49 02/27/25 09:49 02/27/25 09:49 02/27/25 09:49 02/27/25 09:49 02/27/25 09:49 Laboratory Results - last 24 hr 02/27/25 09:52: POC Glucose 118 H I & O for Last 24 hours: Intake & Output 02/24/25 02/25/25 02/26/25 02/27/25 23:59 23:59 23:59 23:59 Weight 228 lb *Routine HEENT Exam Head: Present normocephalic Eye: Present EOMI and PERRL ENT: Present mucous membranes moist *Routine Neck Exam Neck: Present supple *Routine Respiratory Exam Respiratory: Present CTA bilaterally *Routine Cardiovascular Exam Cardiovascular: Present RRR *Routine Abdominal Exam Abdominal: Present soft and normoactive bowel sounds; Absent tenderness *Routine Rectal Exam Rectal:: deferred *Routine Genitalia Exam Genitalia:: deferred *Routine Extremities Exam Extremities: Absent cyanosis, clubbing or edema *Routine Skin Exam Skin: Present warm; Absent rash *Routine Neurological Exam Neurological: Present alert and oriented X3 Assessment and Plan *Assessment and plan (1) Personal history of colon polyps, unspecified: Status: Acute Category: Medical Code(s): Z86.0100 - Personal history of colon polyps, unspecified (2) Screening for colorectal cancer: Status: Acute Category: Medical Code(s): Z12.11 - Encounter for screening for malignant neoplasm of colon; Z12.12 - Encounter for screening for malignant neoplasm of rectum Plan A/P: 1. Personal history of colon polyps is the preprocedural diagnosis. The patient will be anesthetized/sedated using MAC sedation. The patient has been seen and examined. Cardiac and lung assessment prior to the examination is stable. Proceed with planned screening colonoscopy.
--- NOTE | 2025-02-27 10:35 | P.PCN_ITS ---
[facility] Procedure Note Date: 02/27/25 Time: 10:50 Procedure Note:: Colonoscopy Procedure Report: Colonoscopy with cold snare polypectomy Endoscopist: Sim Mei II, MD Referring physician: Raf Rocha DO Date of Procedure: February 27, 2025 Equipment: Olympus 190 variable stiffness pediatric colonoscope Sedation: MAC sedation Indication: Mr. Tyson is a 60-year-old gentleman who is here for follow-up screening/surveillance colonoscopy. 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 He did subsequently have left lower quadrant abdominal pain and this was a hematoma related to his cryoablation. The patient reports no rectal bleeding, change in his bowel habits or family history of colon cancer. His last colonoscopy in February 2020 revealed a single polyp (inflammatory polyp) which was removed. Procedure: Prior to the procedure, a history and physical exam was performed, and patient's medications and allergies were reviewed. The risks, benefits and alternatives of the sedation and procedure were discussed with the patient. All questions were answered and informed consent was obtained. The patient was brought to the procedure room. Patient identification and proposed procedure were verified by the physician and the nurse. The patient was placed in a left lateral decubitus position and the scope was passed under direct vision. Throughout the procedure, the patient's blood pressure, pulse, and oxygen saturations were monitored continuously. The colonoscopy was accomplished without difficulty. The patient tolerated the procedure well. Findings: On digital rectal examination there was normal rectal tone. There were no external hemorrhoids. The prostate was 2+, smooth, soft, symmetric without nodules. The colonoscope was introduced through the anal canal to the rectum and advanced to the cecum. The ileocecal valve and appendiceal orifice were identified. The scope was advanced a short distance into the ileum which appeared grossly normal. The scope was then withdrawn into the colon. There were 2 polyps (cecum x 1 (4 mm) and ascending x 1 (4 mm)). Both of these were removed via cold snare polypectomy. The remaining cecum, ascending and transverse colon and mucosa were grossly normal. There were scattered dive rticuli throughout the descending and sigmoid colon (LEFT colon). The rectum itself was normal. Upon retroflexion within the rectum there were grade 1-2 internal hemorrhoids. The preparation was excellent throughout with [place] Preparation Score of 9. The cecal time was 12 minutes. Impression: 1. Diminutive colonic polyps x 2 2. Left-sided diverticulosis 3. Grade 1-2 internal hemorrhoids Plan: I will follow-up the polyp histology and recommend repeat surveillance colonoscopy again in 7 to 10 years based upon the pathology. I would encourage psyllium bulking fiber supplementation on a long-term daily maintenance basis.
[2025-02-27 10:53] VITALS: BP 128/69; PULSE 69; RESP 16; TEMP 36.4; O2SAT 96
[2025-02-27 11:03] VITALS: BP 145/77; PULSE 62; RESP 16; O2SAT 100
[2025-02-27 11:13] VITALS: BP 143/83; PULSE 54; RESP 18; O2SAT 99
[2025-02-27 11:23] VITALS: BP 157/86; PULSE 52; RESP 18; O2SAT 99
[2025-02-27 11:37] VITALS: BP 145/71; PULSE 54; RESP 18; TEMP 36.4; O2SAT 99
== END 2025-02-27 11:37 | disposition home or self-care (01) ==
PROVIDERS: PCP Internal Medicine; Visit Provider Internal Medicine Gastroenterology
PROC: 0DJD8ZZ Inspection of Lower Intestinal Tract, Via Natural or Artificial Opening Endoscopic (ICD-10-PCS; CPT 45378; principal; 2025-02-27 10:00)
DX: Z12.11 Encounter for screening for malignant neoplasm of colon (principal); Z86.0109 Personal history of other colon polyps; K51.40 Inflammatory polyps of colon without complications; D12.2 Benign neoplasm of ascending colon; J43.9 Emphysema, unspecified; K57.30 Diverticulosis of large intestine without perforation or abscess without bleeding; K64.1 Second degree hemorrhoids; G47.30 Sleep apnea, unspecified; K21.9 Gastro-esophageal reflux disease without esophagitis; I48.0 Paroxysmal atrial fibrillation; I11.9 Hypertensive heart disease without heart failure; I25.10 Atherosclerotic heart disease of native coronary artery without angina pectoris; Z87.19 Personal history of other diseases of the digestive system; Z90.49 Acquired absence of other specified parts of digestive tract; Z79.899 Other long term (current) drug therapy; Z86.73 Personal history of transient ischemic attack (TIA), and cerebral infarction without residual deficits; Z79.84 Long term (current) use of oral hypoglycemic drugs; Z88.2 Allergy status to sulfonamides; Z86.711 Personal history of pulmonary embolism
CPT/HCPCS: 45385; 82962; J2003; J2704; J7120

== ENCOUNTER 2025-04-12 10:01 | Outpatient (CLI) | payer BC, SELFPAY ==
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
--- OUTSIDE RECORDS SUMMARY | 2025-04-11 13:28 | XMS_ITS | Encounter Summary ---
Author Organization [facility] Address [address] [place] [address] Care Team Providers Care Underground Mine Machinery Mechanic Name Role Phone Feng Garcia MD Unavailable Raf Rocha DO Primary Care Provider [phone] Reason for Referral * Imaging (Routine) - Closed Specialty Diagnoses / Procedures Referred By Salvatore healy Referred To Contact Radiology Diagnoses Renal cell carcinoma Procedures CT Renal Mass w and wo IV Contrast Gisell Rivera APRN [address] [place] [address] Phone: tel: fax: Referral ID Status Reason Start Date Expiration Date Visits Re quested Visits Authorized [id number] Closed 02/10/2025 08/12/2026 1 1 Reason for Visit * Imaging (Routine) - Closed Specialty Diagnoses / Procedures Referred By Salvatore healy Referred To Contact Radiology Diagnoses Renal cell carcinoma Procedures CT Renal Mass w and wo IV Contrast Gisell Rivera APRN [address] [place] [address] Phone: tel: fax: Referral ID Status Reason Start Date Expiration Date Visits Re quested Visits Authorized [id number] Closed 02/10/2025 08/12/2026 1 1 Encounter Details Date Type Department Care Team (Latest Contact Info) Description 04/11/2025 1:28 PM EDT - 04/11/2025 11:59 PM EDT Hospital Encounter [facility] [address] [place] [address] Renal cell carcinoma Discharge Disposition: Home or Self Care Social [...] drink first t laly in the morning (EYE-GLOBAL LOGISTICS MANAGER) to steady your nerves or to get [...] on file documented as of this encounter Medications at Time of Discharge [...] Glucose Sensor (FreeStyle Konstantin 3 Plus Sensor) [facility] [place] as directed 12/06/2024 diclofenac (Voltaren) 75 [...] within 12 hours or as directed by . 14 patch 11/10/2024 metFORMIN (Glucophage) 1000 MG tablet 1 tablet 2 times a day with meals. 11/23/2024 naproxen sodium (Aleve) 220 MG tablet Take [...] as of this encounter Miscellaneous Notes * Erlinda Vora - 04/11/2025 1:29 PM EDT Images from the original note were not included. 1639 Caring for Yourself after Contrast Imaging If you had ORAL contrast: ? You can go back to your normal diet and activities as tolerated. ? Drink plenty of fluids, unless told otherwise. If you had IV contrast: ? You can go back to your normal diet and activities as tolerated. ? Drink plenty of fluids, unless told otherwise. ? Leave a bandage on the site for 30 minutes (where the IV was inserted or blood was drawn). If you had Intravesical (bladder) contrast: ? Return to normal diet and activity. What you need to know about delayed reaction to IV contrast What is IV Contrast? ? Contrast is a dye that is put into your body through an IV. ? It is used for imaging scans such as CT scans and MRIs. ? The contrast makes blood vessels, organs and other parts of your body show up better on the scan. What do I need to do after IV contrast? ? Drink lots of fluids. This will help flush the contrast out of your system. ? Drink 2-3 extra glasses or bottles of water within 4 hours of your scan. What is a contrast reaction? ? A contrast reaction is a bad side effect from the contrast dye. ? It is rare but it does happen. ? They can be mild - such as sneezing, itching, or hives. ? They can be severe - such as trouble breathing, throat swelling, and irregular heart beat. When do these reactions happen? ? They often happen right after the contrast is injected. ? Some happen hours after going home. Go to the nearest Emergency Department right away if you have any of these symptoms after you leavethe clinic or hospital. ? Sneezing ? Itching in your mouth, throat, eyes, ears, or skin ? Rash or hives ? Throwing up or stomach sickness ? High heart rate or ?racing? of your heart ? Feeling dizzy or woozy ? Feeling short of breath or like you can?t take a deep breath ? Feeling very anxious for no other reason It is very important that these reactions be treated. Tell the doctor or nurse that you are having a reaction to IV contrast dye. Do not ignore any sign of a reaction! All reactions must be assessed by a doctor. Call 911 if you are alone and your reaction is more than mild sneezing or itching. If you have a mild reaction, call to speak with a Radiologist, explain that you havehad a contrast reaction, as this needs to be added to your medical record. documented in this encounter Plan of Treatment Not on file documented as of this encounter Goals Goal Patient Goal Type Associated Problems Recent Progress Patient-Stated? Author Autogenera tavia Goal Care Plan Autogenerated Problem No Dimple Lynch documented as of this encounter Procedures Procedure Name Priority Date/Time Associated Diagnosis Comments CT RENAL MASS W AND WO IV CONTRAST Routine 04/11/2025 1:48 PM EDT Renal cell carcinoma documented in this encounter Results * CT Renal Mass w and wo IV Contrast (04/11/2025 1:48 PM EDT) Anatomical Region Laterality Modality Kidney Computed Tomogra phy Impressions 04/11/2025 4:38 PM EDT Prior ablation left kidney upper pole. Residual mass without suspicious enhancement likely represents postablative changes. No specific evidence for residual disease. Attention is recommended on follow-up imaging. Essentially resolved left subcapsular hematoma. No lymphadenopathy or solid organ metastasis. CRITICAL RESULT: No. COMMUNICATION: Per this written report. By electronically signing this report, I, the attending physician, attest that I have personally reviewed the images/data for the above examination(s) and agree with the final edited report. Drafted by DAVID Tran on 04/11/2025 2:50 PM Final report signed by Diaz Barrios MD on 04/11/2025 4:38 PM Narrative 04/11/2025 4:38 PM EDT CLINICAL INDICATION: s/p left renal cryoablation TECHNIQUE: Multiple pre-contrast axial CT images were obtained from lower chest through upper pelvis, followed by multiple axial CT images of the abdomen following the administration of IV contrast, Omnipaque 300, 100 mL. Images were obtained in the corticomedullary and excretory phases. Reformatted images in the coronal and sagittal planes were generated from the axial data set to facilitate diagnostic accuracy. Total DLP (Dose-Length Product): 1375.52 mGy.cm. Please note: The reported value represents the total of one or more individual components during the CT acquisition on this date and at this time, and as such, the same value may appear in more than one CT report depending on the interpreting/reporting physicians. COMPARISON: CT abdomen and pelvis January 16, 2025 CT renal mass November 16, 2024 FINDINGS: Kidneys: Precontrast imaging demonstrates nonobstructing 5 mm calculus in the right interpolar calyx. After the administration of intravenous contrast material both kidneys concentrate and excrete contrast promptly and symmetrically. Exophytic slightly heterogeneous 10 mm low-density area in the right kidney, unchanged compared to prior; too small to characterize (series 10, image 72). Additional tiny hypodense foci in both kidneys, presumably cysts. Essentially resolved left-sided subcapsular hematoma. Residual masslike area of hypoattenuation measuring 3.7 x 3.3 cm at the upper pole of left kidney with no significant contrast enhancement likely relating to ablation sequelae. No abnormal enhancing lesion. No extravasation of contrast on delayed phase imaging to suggest urinary collecting system injury. Left renal vein and IVC are patent. Left renal artery stent present. Remaining Solid Abdominal Organs: Liver/Gallbladder/Biliary System: The liver demonstrates homogeneous enhancement. Cholecystectomy. No intra- or extra-hepatic biliary ductal dilatation. Spleen: The spleen enhances homogeneously. Pancreas: The pancreas enhances homogeneously. Adrenals: The adrenals are morphologically unremarkable. GI Tract/Mesentery/Peritoneum: Duodenal diverticulum. No imaged bowel dilatation or suspicious wall thickening.. Free Fluid: No ascites. Lymph Nodes and Vasculature: No lymphadenopathy by CT size criteria. The abdominal aorta is normal in caliber. Musculoskeletal and Body Wall: No clearly aggressive bone lesions or significant body wall findings. Vertebral hemangioma in one of the lower lumbar vertebra. Lower Chest: No suspicious findings. Procedure Note Diaz Barrios MD - 04/11/2025 CLINICAL INDICATION: s/p left renal cryoablation TECHNIQUE: Multiple pre-contrast axial CT images were obtained from lower chestthrough upper pelvis, followed by multiple axial CT images of the abdomenfollowing the administration of IV contrast, Omnipaque 300, 100 mL. Imageswere obtained in the corticomedullary and excretory phases. Reformattedimages in the coronal and sagittal planes were generated from the axialdata set to facilitate diagnostic accuracy. Total DLP (Dose-Length Product): 1375.52 mGy.cm. Please note: The reportedvalue represents the total of one or more individual components during theCT acquisition on this date and at this time, and as such, the same valuemay appear in more than one CT report depending on theinterpreting/reporting physicians. COMPARISON: CT abdomen and pelvis January 16, 2025 CT renal mass November 16, 2024 FINDINGS: Kidneys: Precontrast imaging demonstrates nonobstructing 5 mm calculus inthe right interpolar calyx. After the administration of intravenouscontrast material both kidneys concentrate and excrete contrast promptlyand symmetrically. Exophytic slightly heterogeneous 10 mm low-density areain the right kidney, unchanged compared to prior; too small tocharacterize (series 10, image 72). Additional tiny hypodense foci in bothkidneys, presumably cysts. Essentially resolved left-sided subcapsular hematoma. Residual masslikearea of hypoattenuation measuring 3.7 x 3.3 cm at the upper pole of leftkidney with no significant contrast enhancement likely relating toablation sequelae. No abnormal enhancing lesion. No extravasation ofcontrast on delayed phase imaging to suggest urinary collecting systeminjury. Left renal vein and IVC are patent. Left renal artery stentpresent. Remaining Solid Abdominal Organs: Liver/Gallbladder/Biliary System: The liver demonstrates homogeneousenhancement. Cholecystectomy. No intra- or extra-hepatic biliary ductaldilatation. Spleen: The spleen enhances homogeneously. Pancreas: The pancreas enhances homogeneously. Adrenals: The adrenals are morphologically unremarkable. GI Tract/Mesentery/Peritoneum: Duodenal diverticulum. No imaged boweldilatation or suspicious wall thickening.. Free Fluid: No ascites. Lymph Nodes and Vasculature: No lymphadenopathy by CT size criteria. Theabdominal aorta is normal in caliber. Musculoskeletal and Body Wall: No clearly aggressive bone lesions orsignificant body wall findings. Vertebral hemangioma in one of the lowerlumbar vertebra. Lower Chest: No suspicious findings. IMPRESSION: Prior ablation left kidney upper pole. Residual mass without suspiciousenhancement likely represents postablative changes. No specific evidencefor residual disease. Attention is recommended on follow-up imaging. Essentially resolved left subcapsular hematoma. No lymphadenopathy or solid organ metastasis. CRITICAL RESULT: No. COMMUNICATION: Per this written report. By electronically signing this report, I, the attending physician, attdishathat I have personally reviewed the images/data for the aboveexamination(s) and agree with the final edited report. Drafted by DAVID Tran on 04/11/2025 2:50 PM Final report signed by Diaz Barrios MD on 04/11/2025 4:38 PM us Gisell Rivera CHRISTMAS [employer]REE [employer] MANAGER IMG CT PROCEDURES Final Resu lt documented in this encounter Visit Diagnoses Diagnosis Renal cell carcinoma Malignant neoplasm of kidney, except pelvis documented in this encounter Administered Medications Inactive Administered Medications - up to 3 most recent administrations Medication Order MAR Action Action Date Dose Rate Site iohexol (OMNIPaque) 300 MG/ML injection 100 mL 100 mL, Intravenous, Once in imaging, 1 dose, Starting on Thu04/11/25 at 1329, Until 04/11/25 at 1340, Routine, Imaging Protocol Orders Given 04/11/2025 1:40 PM EDT 100 mL documented in this encounter Additional Health Concerns [...] documented as of this encounter Care Teams Underground Mine Machinery Mechanic Relationship Specialty Start Date End Date Raf Rocha DO [facility] [address] [address] PCP - General 11/24/24 Feng Garcia MD [address] [place] [address] Surgeon Urology 11/24/24 documented as of this encounter
--- OUTSIDE RECORDS SUMMARY | 2025-04-12 10:21 | XMS_ITS | Encounter Summary ---
Author Organization Healthcare Address [address] [place] [address] Care Team Providers Care First Line Production Supervisor Name Role Phone Shakira Todd APRN Primary Care Provider [phone] Feng Garcia MD Unavailable Raf Rocha DO Primary Care Provider [phone] Reason for Visit * Reason Comments Med Refill Encounter Details Date Type Department Care Team (Late st Contact Info) Description 07/06/2023 Refill [facility] [address] [place] [address] Jamie Marino MD [address] [place] [address] Lower urinary tract symptoms (LUTS) Social History Tobacco Use Types Packs/Day Years Used Date Smoking Tobacco: Never Smokeless Tobacco: Never Alcohol Use Standard Drinks/Week Comments Never 0 (1 standard drink = 0.6 oz pur e alcohol) very rarely PHQ-2 Answer Date Recorded Patient Health Questionnaire-2 Score 0 01/12/2023 CAGE ASSESSMENT Answer Date Recorded Cage unable to access Not on file 11/03/2022 Cage max number of drinks Not on file 2022 Cage Beverages a week Not on file 11/03/2022 Have you ever felt you should CUT down on your d rinking? 0 11/03/2022 Have you been ANNOYED by people criticizing your drinking? 0 11/03/2022 Have you felt GUILTY about your drinking? 0 11/03/2022 Have you had a drink first t laly in the morning (EYE-DIRECT CHILL CASTING OPERATOR) to steady your nerves or to get rid of a hangover? 0 11/03/2022 CAGE Questionnaire Score 0 023 Sex and Gender Information Value Date Recorded Sex Assigned at Male 03/13/2025 5:47 PM EDT Legal Sex Male 8:19 PM EDT Gender Identity Not on file Sexual Orientation Not on file documented as of this encounter Miscellaneous Notes * Telephone Encounter - Ivonne Daigle, PharmD - 07/07/2023 9:00 AM EST Refill request does not meet protocol. Sending to clinic for review. Additional info: Clarification required: not addressed in most recent note. documented in this encounter Plan of Treatment Not on file documented as of this encounter Visit Diagnoses Diagnosis Lower urinary tract symptoms (LUTS) documented in this encounter Additional Health Concerns Infection Onset Date Last Indicated Resolved Time Influenza 08/04/2023 08/04/2023 09/01/2023 5:23 AM EST COVID-19 Rule-Out 07/11/2024 07/11/2024 07/11/2024 6:02 PM EST Assessment Noted Time A fall risk assessment has been complete d for the patient 01/12/2023 9:50 AM EDT A Body Mass Index follow-up plan has been documented for the patient 06/24/2023 1:37 PM EDT documented as of this encounter Care Teams First Line Production Supervisor Relationship Specialty Start Date End Date Shakira Todd APRN [facility] [place] [address] PCP - General 01/04/21 11/23/24 Raf Rocha DO [address] [facility] [address] [place] [address] PCP - General 11/24/24 Feng Garcia MD [address] [facility] [address] [place] [address] Surgeon Urology 11/24/24 documented as of this encounter
--- OUTSIDE RECORDS SUMMARY | 2025-04-12 10:21 | XMS_ITS | Clinical Summary ---
Author Organization [facility] Address [address] [place] [address] Care Team Providers Care Hair Blender Name Role Phone Rolanda Acosta Payal LAW Primary Care Provider [phone] Allergies Active Allergy Reactions Criticality Noted Date Comments Penicillins 02/18/2016 Oxycodone-Acetaminophen Itching 02/18/2016 Statins Unknown - Low Severity 03/22/2021 Sulfa Antibiotics 02/18/2016 Medications ALLOPURINOL PO Take 300 mg by mouth daily. Active benazepril (LOTENSIN) 40 MG tablet Take 40 mg by mouth daily. Active buPROPion XL (WELLBUTRIN XL) 300 MG 24 hr tablet Take 300 mg by mouth daily. Active clopidogrel (PLAVIX) 75 MG tablet Take 75 mg by mouth daily. Active aspirin 81 MG EC tablet Take 81 mg by mouth daily. Active carvedilol (COREG) 3.125 MG tablet Take 3.125 mg by mouth 2 (two) times a day with meals. Active tamsulosin (FLOMAX) 0.4 MG capsule 24 hr capsule Take 1 capsule by mouth Daily. Active raNITIdine HCl (ZANTAC PO) Take by mouth. Active DICLOFENAC PO Take 10 mg by mouth. Active metaxalone (SKELAXIN) 800 MG tablet Take 1 tablet by mouth 3 (Three) Times a Day As Needed for Muscle Spasms. 15 tablet 03/22/2021 Active Active Problems Problem Noted Date Diagnosed Date Bilateral carpal tunnel syndrome 03/24/2016 Pain in joint of left shoulder 03/24/2016 Herniated cervical disc 03/11/2016 Degenerative joint disease of shoulder region HTN (hypertension) 02/22/2016 Anxiety and depression 02/22/2016 Family History Medical History Relation Name Comments Stroke Maternal Grandmother Heart disease Mother Heart failure Mother Other Mother Pacemaker Stroke Mother Stroke Paternal Grandmother Cancer Sister Relation Name Status Comments Father Alive Maternal Grandmother Mother Paternal Grandmother Sister Social History Tobacco Use Types Packs/Day Years Used Date Smoking Tobacco: Never Alcohol Use Standard Drinks/Week Comments No 0 (1 standard drink = 0.6 oz pur e alcohol) Abuse Screen Answer Date Recorded Unsafe at Home or Work/School Not on file Feels Threatened by Someone? Not on file 04/2023 Does Anyone Keep You from Co ntacting Others or Doint Things Outside the Home? Not on file 06/01/2023 Physical Sign of Abuse Present Not on file 1 Housing Stability Answer Date Recorded Current Living Arrangements Not on file 04/2023 Potentially Unsafe Housing Conditions Not on regino e 06/01/2023 Family and Community Support Answer Gilles e Recorded Help with Day-to-Day Activities Not on file 06/01/2023 Lonely or Isolated Not on file 06/01/2023 Employment Answer Date Recorded Do you want help finding or keeping work or a ninoska b? Not on file 06/01/2023 Disabilities Answer Date Recorded Concentrating, Remembering, or Making Decisions Difficulty Not on file 06/01/2023 Doing Errands Independently Difficulty Not on fi le 06/01/2023 Education Answer Date Recorded Help with school or training? Not on file Preferred Language Not on file 06/01/2023 Sex and Gender Information Value Date Recorded Sex Assigned at Not on file Legal Sex Male 11:27 AM EDT Gender Identity Not on file Sexual Orientation Not on file Last Filed Vital Signs Vital Sign Reading Time Taken Comments Blood Pressure 138/65 03/22/2021 11:30 AM EDT Pulse 60 03/22/2021 11:06 AM EDT Temperature 36.7 C (98.1 F) 03/22/2021 9:47 AM EDT Respiratory Rate 18 03/22/2021 9:47 AM EDT Oxygen Saturation 98% 03/22/2021 11:30 AM EDT Inhaled Oxygen Concentration - - Weight 105 kg (232 lb) 03/22/2021 9:47 AM EDT Height 177.8 cm (5' 10 ) 03/22/2021 9:47 AM EDT Body Mass Index 33.29 03/22/2021 9:47 AM EDT Plan of Treatment Health Maintenance Due Date Last Done Comments ANNUAL PHYSICAL 1966 HEPATITIS C SCREENING 1966 TDAP/TD VACCINES (1 - Tdap) 1985 COLOGUARD 2011 COLON CANCER SCREENING 5 YEAR SIGMOIDOSCOPY 2011 COLONOSCOPY 2011 [address] CANCER SCREENING 2011 CT COLONOGRAPHY 2011 FECAL OCCULT BLOOD TEST 2011 FIT Testing (1 year) 2011 Pneumococcal Vaccine 50+ (1 of 1 - PCV) 02/15/2016 ZOSTER VACCINE (1 of 2) 02/15/2016 COVID-19 Vaccine (1 - 2023- season) 2024 INFLUENZA VACCINE 05/24/2025 Insurance [facility] MEDICAID [facility] [employer] Member Subscriber Plan / Payer (Ef fective 2021-Present) Name:Laisha Tysoncesar Greene Relation to Subscriber:Self Name:Laisha Tysoncesar Greene Payer ID:[id number] Group ID:Not on file Type:Not on file Address: [facility] [id number] Care Teams Hair Blender Relationship Specialty Start Date End Date Rolanda Acosta, THANH [address] [address] PCP - General Family Medicine 02/18/16
--- OUTSIDE RECORDS SUMMARY | 2025-04-12 10:21 | XMS_ITS | Clinical Summary ---
Author Organization [facility] Address [address] [place] [address] Phone Care Team Providers Care Chief Clerk Shelter Name Role Phone Pamela GUARDADO, Lauren Ventura [ ] Conditions or Problems Problem Name Problem Code Onset Date Status Entry Date Provider Comment Standard Description Annotate CHEST PAIN, HX OF; POST OP Z86.79 (ICD-10-CM ) 09/27 Active 09/29 Lauren Santiago MD Personal history of other diseases of the circulatory system OBESITY 516101123 (SNOMED CT) 09/27 Active 09/27 Loni Catalan CHRONIC OSTEOMYELITI S RT FOOT M86.679 (ICD-10-CM ) 09/25 Active 09/25 Cinthya Cavanaugh Other chronic osteomyelitis, unspecified ankle and foot HYPERTENSION , CONTROLLED 51084121 (SNOMED CT) 09/17 Resolved 09/17 Dimple Duque Hypertensive disorder ACTIVITIES INVOLVING BUILDING AND CONSTRUCTION NAIL IN FOOT Y93.H3 (ICD-10-CM ) 09/25 Active 09/25 Dimple Duque Activity, building and construction CHRONIC OSTEOMYELITI S, FOOT 145114630 (SNOMED CT) 09/25 Correction 09/25 Dimple Duque Chronic osteomyelitis of foot ACUTE OSTEOMYELITI S: RT FOOT/TOE M86.179 (ICD-10-CM ) 09/14 Inactive 09/14 Dimple Duque Other acute osteomyelitis, unspecified ankle and foot NEPHROLITHIA SIS, URIC ACID 274254879 (SNOMED CT) 09/17 Active 09/21 Lauren Santiago MD Uric acid renal calculus INJURY OTHER&UNSPEC IFIED FOOT/ RIGHT FOOT PUNCTURE 959.7 (ICD-9-CM) 09/17 Active 09/21 Lauren Santiago MD Other and unspecified injury to knee, leg, ankle, and foot HYPERTENSION , CONTROLLED 34368063 (SNOMED CT) 09/17 Removed 09/17 Lauren Santiago MD Hypertensive disorder ACUTE OSTEOMYELITI S: RT FOOT/TOE M86.179 (ICD-10-CM ) 09/14 Removed 09/14 Dee Pires Other acute osteomyelitis, unspecified ankle and foot Medications Medication Instructions Start Date Stop Date Generic Name [facility] Provider ASPIRIN 81 MG TBEC ASPIRIN [id number] Loni Roldan PERCOCET TABS 09/27 OXYCODONE-ACETAMI NOPHEN TABS [id number] Loni Roldan ADOXA 100 MG ORAL TABLET twice daily for 10 days DOXYCYCLINE MONOHYDRATE 05410403109 Loni Roldan LEVAQUIN 750 MG ORAL TABLET 09/27 LEVOFLOXACIN 83944064294 Loni Roldan LEVOFLOXACIN 250 MG TABS 09/26 LEVOFLOXACIN 15012452192 Moy Larson LEVAQUIN 750 MG ORAL TABLET 0 11/22 LEVOFLOXACIN 27729941786 Moy Larson PERCOCET TABS 0 11/22 OXYCODONE-ACETAMI NOPHEN TABS 55110686792 Moy Larson LORTAB TABLET HYDROCODONE-ACETA MINOPHEN TABS 53124101974 Moy Larson PHENERGAN SOLN PROMETHAZINE HCL SOLN 17442603173 Moy Larson TRIAMCINOLONE ACETONIDE 0.5 % CREA TRIAMCINOLONE ACETONIDE 43179453145 Lauren Santiago MD CYCLOBENZAPRINE HCL TABLET CYCLOBENZAPRINE HCL TABS 90162863557 Lauren Santiago MD LEVOFLOXACIN 250 MG TABS 09/26 LEVOFLOXACIN 39638726175 Lauren Santiago MD BENAZEPRIL HCL 20 MG TABS BENAZEPRIL HCL 35083385654 Heather G ALLOPURINOL 300 MG TABS ALLOPURINOL [id number] Heather G Medications Administered No information available. Allergies, Adverse Reactions, Alerts Allergy Name Reaction Description Start Date Severity Status Provider SULFAMETHOXAZOLE-T RIMETHOPRIM severe itching, rash Moderate Active Lauren Santiago MD PENICILLIN V POTASSIUM Pt states he was told not to take b/c his mother was allergic Mild Active Lauren Santiago MD SULFAMETHOXAZOLE-T RIMETHOPRIM Moderate No Longer Active Heather G PENICILLIN V POTASSIUM Moderate No Longer Active Heather G Results Date Name Value Unit Range Flag Description Office Visit: rm5 SMOK STATUS never smoker Tobacco smoking status Lab Report: CBC without Diff erential PLATELETS 140 10*3/mm3 150-450 L Platelets [#/volume] in Blood by Automated count RDW_ 12.9 11.3-14.5 N RDW, no uni ts MCHC 35.2 G/DL 32.0-36.0 N MCHC [Mass/ volume] by Automated count MCH 31.1 pg 27.0-31.0 H MCH [Entiti c mass] by Automated count MCV 88.3 fL 80.0-99.0 N MCV [Entiti c volume] by Automated count HCT 42.3 % 38.9-50.9 N Hematocrit [Volume Fraction] of Blood by Automated count HGB 14.9 g/dL 13.1-17.5 N Hemoglobin [Mass/volume] in Blood RBC 4.79 M/MCL 10*6/mm3 4.20-5.76 N Erythro cytes [#/volume] in Blood by Automated count WBC 8.48 10*3/mm3 3.50-10.8 0 N Leukocytes [#/volume] in Blood by Automated count Lab Report: Comprehensive Me tabolic Panel ANIONGAP 5 mmol/L 3-11 N anion gap, s samia GFRC 61 mL/min/1. 73m2 Glomerular Filtration Rate Calculation ALBUMIN 3.5 g/dL 3.4-4.8 N Albumin [Mass/volume] in Serum or Plasma PROTEIN, TOT 6.1 g/dL 6.4-8.3 L Protein [Mass/volume] in Serum or Plasma BILI TOTAL 0.7 mg/dL 0.3-1.2 N Bilirubin. total [Mass/volume] in Serum or Plasma SGPT (ALT) 40 U/L 7-40 N Alanine aminotransferase [Enzymatic activity/volume] in Serum or Plasma SGOT (AST) 30 U/L 8-33 N Aspartate aminotransferase [Enzymatic activity/volume] in Serum or Plasma ALK PHOS 49 U/L 25-100 N Alkaline ilda sphatase [Enzymatic activity/volume] in Blood CALCIUM 8.8 mg/dL 8.7-10.4 N Calcium [Moles/volume] in Serum or Plasma CO2 30 mmol/L 20-31 N Carbon dioxid e, total [Moles/volume] in Venous blood CHLORIDE 105 mmol/L 98-107 N Chloride [Moles/volume] in Serum or Plasma POTASSIUM 4.1 mmol/L 3.4-5.4 N Potassium [Moles/volume] in Serum or Plasma SODIUM 141 mmol/L 136-145 N Sodium [Moles/volume] in Serum or Plasma CREATININE 1.3 mg/dL 0.6-1.3 N Creatinine [Mass/volume] in Serum or Plasma BUN 18 mg/dL 6-20 N Urea nitrogen [Mass/volume] in Serum or Plasma GLUCOSE SER 117 mg/dL 70-100 H Glucose [Mass/volume] in Serum or Plasma Lab Report: Uric Acid URIC ACID 5.7 mg/dL 2.6-7.2 N Urate [Mass /volume] in Serum or Plasma Office Visit: rm 5 MEDS REVIEW Done Documenta tion of current medications (procedure) Plan of Care Type Date Detail Pending order Redress Wound Pending order CMP Pending order C- reactive prot ein Pending order CBC with Differe ntial Procedures Code Procedure Name Date Entry Date CPT-23827 CMP CPT-66677 C- reactive protein CPT-21650 CBC with Differential 09/17 Vital Signs Date Name Value Unit Description BMI (Body Mass Index) 35.14 kg/m2 Bod y Mass Index (Ratio) Body Temperature 97.8 [degF] temperat ure E&M BP Diastolic 80 mm[Hg] blood pressu re, diastolic BP Systolic 122 mm[Hg] blood pressur e, systolic Heart Rate 72 /min pulse rate Height 70 [in_us] height E&M Respiratory Rate 16 /min respirat ory rate E&M Weight Measured 244 [lb_av] weight E& M Weight Measured 244 [lb_av] weight E& M Immunizations No information available. Advance Directives No information available.
--- OUTSIDE RECORDS SUMMARY | 2025-04-12 10:22 | XMS_ITS | Encounter Summary ---
Author Organization [facility] Address [address] [place] [address] Care Team Providers Care Durable Medical Equipment Technician Name Role Phone Feng Garcia MD Unavailable Raf Rocha DO Primary Care Provider [phone] Encounter Details Date Type Department Care Team (Latest Contact Info) Description 04/11/2025 Travel Social History Tobacco Use Types Packs/Day Years [...] drink first t laly in the morning (EYE-CULLET WASHER) to steady your nerves or to get [...] on file documented as of this encounter Plan of Treatment Not on file documented as of this encounter Goals Goal Patient Goal Type Associated Problems Recent Progress Patient-Stated? Author Autogenera tavia Goal Care Plan Autogenerated Problem No SyedDimple documented as of this encounter Visit Diagnoses Not on filedocumented in this encounter Additional Health Concerns Active [...] documented as of this encounter Care Teams Durable Medical Equipment Technician Relationship Specialty Start Date End Date Raf Rocha DO [facility] [address] [place] [address] PCP - General 11/24/24 Feng Garcia MD [address] [facility] [address] [place] [address] Surgeon Urology 11/24/24 documented as of this encounter
--- OUTSIDE RECORDS SUMMARY | 2025-04-12 10:22 | XMS_ITS | Encounter Summary ---
Author Organization [facility] ([place], [place], [place], [place]) Address [address] [place] [address] Care Team Providers Care Barrel Cooper Name Role Phone Unavailable Primary Care Provider Unavailabl e Encounter Details Date Type Department Care Team (Late st Contact Info) Description 12/03/2020 Transcribed Document [facility] Family Medicine [facility] [place] [address] ProviderStan MD [facility] [place] [id number] Social History Tobacco Use Types Packs/Day Years Used Date Smoking Tobacco: Never Assessed Sex and Gender Information Value Date Recorded Sex Assigned at Male 02/18/2022 2:47 PM CDT Legal Sex Male 2:47 PM CDT Gender Identity Male 02/18/2022 2:47 PM CDT Sexual Orientation Not on file documented as of this encounter Miscellaneous Notes * Cerner Conversion Note - Stan ProviderMD - 12/03/2020 11:07 AM CDT PAT Adult Entered On: 12/03/2020 11:13 EDT Performed On: 12/03/2020 11:07 EDT by Jalyn Virgen RN Vital Measurements Temperature Source : Temporal artery scanning Temperature Mode : Fahrenheit Temperature, Fahrenheit : 97.4 Deg F Clinical Temperature, C : 36.3 Deg C Pulse Method : Non-Invasive BP Device Pulse Source : Radial, Left Peripheral Pulse Rate : 52 bpm (LOW) Pulse Rhythm : Regular Respiratory Rate : 16 Breaths/Min Blood Pressure Location : Arm, left upper Blood Pressure Source : Non-Invasive BP Device Blood Pressure Position : Sitting Systolic Blood Pressure : 156 mmHg (HI) Diastolic Blood Pressure : 70 mmHg Oxygen Saturation : 99 % Oxygen Therapy Mode : Room air Jalyn Virgen RN - 12/03/2020 11:07 EDT Height and Weight, Clinical Dosing Height Source : Stated Height Entry Format : [place] Height, Feet : 5 ft(Converted to: 152 cm, 60 Inch) Height, Inches : 10 Inch(Converted to: 0 ft 10 Inch, 25.40 cm) Clinical Height : 177.8 cm Weight Source : Standing scale Weight Entry Format : Campbell Clinical Dosing Weight : 106.82 kg Weight, Pounds : 235 lb Body Surface Area (BSA) : 2.24 m2 Body Mass Index : 33.8 kg/m2 (HI) [place] Body Weight : 72 kg Jalyn Virgen RN - 12/03/2020 11:07 EDT Health Histories Smoking Status : Never (less than 100 in lifetime; none in last 30 days) Smokeless Tobacco Status : Never Implant/Device Type, Ring Striker and Model : stints both renal and carotid artery Jalyn Virgen RN - 12/03/2020 11:07 EDT Social History (As Of: 12/03/2020 11:13:32 EDT) Tobacco: Never (less than 100 in lifetime) Smoking Status. Never Smokeless Tobacco Status. (Last Updated: 12/03/2020 11:08:27 EDT by Jalyn Virgen RN) Alcohol: Alcohol Use History No. Use in Last 12 Months: No. (Last Updated: 12/03/2020 11:08:34 EDT by Jalyn Virgen RN) Infectious Disease History Has the patient ever been tested for COVID-19? : Yes, Patient stated results Positive Date of COVID-19 test known? : No Date Comment : thanksgiving was told he had a false positive Does patient have symptoms of COVID-19? : No COVID19 Screening : No Experiencing Infectious Disease Symptoms : No symptoms Physical contact outside [place] in the last 30 days : No Infectious Disease History : Chicken pox/Shingles Tuberculosis Symptoms : None Jalyn Virgen RN - 12/03/2020 11:07 EDT COVID19 PreProcedure Screening Is this an Emergent or Add on Procedure? : No Date PreProcedure COVID-19 test known? : No Has patient been isolated since the test : N/A - PreProcedure, in-person visit Exposed to COVID19 symptoms since test? : N/A - PreProcedure, in-person visit Jalyn Virgen RN - 12/03/2020 11:07 EDT Anesthesia/Transfusion History Family History of Anesthesia Reaction : Prior transfusion without reaction Transfusion History : Prior anesthesia without reaction Family History of Anesthesia Reaction : None Jalyn Virgen RN - 12/03/2020 11:07 EDT Functional Assessment Functional ADL Evaluation Index EBN Bathing : Independent (2) Dressing : Independent (2) Toileting : Independent (2) Transferring Bed or Chair : Independent (2) Continence : Independent (2) Feeding : Independent (2) Jalyn Virgen RN - 12/03/2020 11:07 EDT ADL Index Score : 12 Jalyn Virgen RN - 12/03/2020 11:07 EDT Advance Directive Patient has Advance Directive *Q : No, patient refuses Advance Directive information Jalyn Virgen RN - 12/03/2020 11:07 EDT [place] Suicide Severity Rating Scale (C-SSRS) CSSRS Past Month Wish to be : No CSSRS Past Month Suicidal Thoughts : No CSSRS Lifetime Suicide Behavior : No Suicide Severity Rating Score : 0 Suicide Severity Rating : No Additional Care Required at this time Jalyn Virgen RN - 12/03/2020 11:07 EDT Psychosocial History Currently in Unsafe Situation : No Jalyn Virgen RN - 12/03/2020 11:07 EDT Teaching/Learning Assessment Barriers To Learning : None evident Individuals Taught : Patient Readiness to Learn : Cooperative Baseline Knowledge of Topic : Limited Readiness to Learn : Explanation, Printed materials Learning Style Preferences Patient : None Learning Style Preferences Family : None Jalyn Virgen RN - 12/03/2020 11:07 EDT Education Topics, Periop Preadmission Perioperative Education Grid IV's : Verbalizes understanding NPO Status/Directions : Verbalizes understanding Pain Management : Verbalizes understanding Postoperative Care Preparations : Verbalizes understanding Preprocedure Preparations : Verbalizes understanding Preprocedure Tests/Labs : Verbalizes understanding Remove Body Piercings : Verbalizes understanding Responsible Adult : Verbalizes understanding Take/Hold Medications Pre-Procedure : Verbalizes understanding Jalyn Virgen RN - 12/03/2020 11:07 EDT General Info Support Person/Pt Rep Name : Darlyn Stoll Family/Rep/Phys Notified of Admit : No Emergency Contact #1 : Darlyn Tyson Emergency Contact #1 Emergency Contact #1 Relationship : spouse Emergency Contact #2 : . Emergency Contact #2 Phone Number : . Emergency Contact #2 Relationship : . Primary Language : Bel[place]ian Communication Barrier : None Grief Counsellor Needed : No Jalyn Virgen RN - 12/03/2020 11:07 EDT Song Scale Song Sensory Perception : Slightly limited Song Moisture : Rarely moist Song Activity : Walks occasionally Song Mobility : Slightly limited Song Nutrition : Adequate Song Friction and Shear : No apparent problem Song Score : 19 Jalyn Virgen RN - 12/03/2020 11:07 EDT Sleep Apnea Risk Assmt Hx of Obstructive Sleep Apnea Diagnosis : No Snore Loudly : Yes Tired, Fatigued, or Sleepy During Day : Yes Observed Stopping Breathing During Sleep : No Have/Are Being Treated for Hypertension : Yes BMI Greater Than 35 kg/m2 : No Age over 50 Years Old : Yes Gender Male : Yes Jalyn Virgen RN - 12/03/2020 11:07 EDT documented in this encounter Plan of Treatment Not on file documented as of this encounter Visit Diagnoses Not on filedocumented in this encounter
--- OUTSIDE RECORDS SUMMARY | 2025-04-12 10:22 | XMS_ITS | Encounter Summary ---
Author Organization [facility] Address [address] [place] [address] Care Team Providers Care Party Plan Demonstrator Name Role Phone Shakira Todd APRN Primary Care Provider [phone] Feng Garcia MD Unavailable Raf Rocha DO Primary Care Provider [phone] Encounter Details Date Type Department Care Team (Late st Contact Info) Description 11/06/2024 Orders Only External Location [address] [place] [address] Arslan Villanueva MD [address] [address] Social History Tobacco Use Types Packs/Day Years Used Date Smoking Tobacco: Never Smokeless Tobacco: Never Alcohol Use Standard Drinks/Week Comments Never 0 (1 standard drink = 0.6 oz pur e alcohol) very rarely PHQ-2 Answer Date Recorded Patient Health Questionnaire-2 Score 0 09/21/2024 CAGE ASSESSMENT Answer Date Recorded Cage unable [...] drink first t laly in the morning (EYE-CAT CRACKER OPERATOR) to steady your nerves or to get rid of a hangover? 0 11/03/2022 CAGE Questionnaire Score 0 023 PHQ-2A Answer Date Recorded Patient Health Questionnaire-2 Score 0 07/28/2023 Sex and Gender Information Value Date Recorded Sex Assigned at Male 03/13/2025 5:47 PM EDT Legal Sex Male 8:19 PM EDT Gender Identity Not on file Sexual Orientation Not on file documented as of this encounter Plan of Treatment Not on file documented as of this encounter Procedures Procedure Name Priority Date/Time Associated Diagnosis Comments CT OUTSIDE IMAGES 11/06/2024 3:59 PM EDT documented in this encounter Results * CT OUTSIDE IMAGES (11/06/2024 3:59 PM EDT) Anatomical Region Laterality Modality Computed Tomogra phy 11/06/2024 3:59 PM EDT Arslan Villanueva MD IMG CT PROCEDURES Final Result documented in this encounter Visit Diagnoses Not on filedocumented in this encounter Additional Health Concerns Assessment Noted Time A fall risk assessment has been complete d for the patient 09/21/2024 7:59 AM EST A Body Mass Index follow-up plan has been documented for the patient 09/21/2024 9:03 AM EST documented as of this encounter Care Teams Party Plan Demonstrator Relationship Specialty Start Date End Date Shakira Todd APRN [address] [place] [id number] PCP - General 01/04/21 11/23/24 Raf Rocha DO [address] [place] [address] [address] [place] [address] PCP - General 11/24/24 Feng Garcia MD [address] [facility] [address] [place] [address] Surgeon Urology 11/24/24 documented as of this encounter
--- OUTSIDE RECORDS SUMMARY | 2025-04-12 10:22 | XMS_ITS | Encounter Summary ---
[facility] Organization [facility] Address [address] [place] [address] Care Team Providers Care Office Machinery Or Equipment Installer Name Role Phone Rolanda Acosta THANH Primary Care Provider [phone] Encounter Details Date Type Department Care Team (Late st Contact Info) Description 09/04/2013 Conversion Encounter [facility] HISTORICAL CONV [address] [place] [address] Interface, See Report Social History Tobacco Use Types Packs/Day Years Used Date Smoking Tobacco: Never Assessed Sex and Gender Information Value Date Recorded Sex Assigned at Not on file Legal Sex Male 11:27 AM EDT Gender Identity Not on file Sexual Orientation Not on file documented as of this encounter ED Notes * Interface, See Report - 09/04/2013 6:28 PM EST Clinical Report - Physicians/Mid Levels [facility] Emergency Department [address] [place] [id number] 09/04/2013 Patient: DAYANARA TYSON Sex: M : 1965 Age: 48y Arrived- By private vehicle. Historian- patient and family. HISTORY OF PRESENT ILLNESS Chief Complaint: LOWER EXTREMITY PAIN. Severity is described as being moderate. The quality is noted to be pain . It is described as radiating (up to his right leg and LB). This started 3 weeks and is still present. It has been constant. Symptoms located in the area of the right foot. The patient has not had redness. No swelling, bladder dysfunction, bowel dysfunction, sensory loss or motor loss. He has had difficulty walking (since having his right middle toe removed rt osteo in Jun). Patient notes the possibility of an injury. Mechanism of injury- (at physical therapy). Occurred at home (and at PT. felt worse after walking in mud). Similar symptoms previously: Recent medical care: The patient was seen recently by a health care provider. REVIEW OF SYSTEMS No cough, chest pain, difficulty breathing, fever or skin rash. No enlarged lymph nodes, neck pain, headache, blurred vision or sore throat. No abdominal pain, vomiting, diarrhea, black stools or difficulty with urination. No bloody stools. The patient has had back pain. All systems otherwise negative, except as recorded above. PAST HISTORY Additional Problems: Prostatitis. Gout. DISC FUSION . Nephrolithiasis. Cellulitis. Atypical Chest Pain. Diverticulosis. Medications: Cyclobenzaprine HCl Oral 10 mg, as needed. Phenergan (Promethazine) Oral 12.5 mg, as needed. Allopurinol Oral 300 mg, daily. Benazepril HCl Oral (Tablet 40 mg) 1 tablet, DAILY. Allergies: Cephalosporins. Penicillins. Sulfa Antibiotics. SOCIAL HISTORY Nonsmoker. FAMILY HISTORY Negative. ADDITIONAL NOTES The nursing notes have been reviewed. PHYSICAL EXAM Appearance: Alert. Oriented X3. No acute distress. Eyes: Pupils equal, round and reactive to light. Eyes normal inspection. ENT: Ears normal. Nose normal. Pharynx normal. Neck: Normal inspection. Neck supple. CVS: Normal heart rate and rhythm. Heart sounds normal. Respiratory: No respiratory distress. Breath sounds normal. Abdomen: Soft and nontender. No organomegaly. Back: Normal inspection. No tenderness. ROM normal. Skin: Skin intact. Skin warm and dry. Normal skin color. Normal skin turgor. Extremities: Right hip: mild tenderness located in the lateral aspect of the hip. Neurovascular intact distally. No erythema, swelling or laceration. No limitation in ROM. Right foot: moderate tenderness located in the dorsal aspect of the foot. Limited weight bearing secondary to pain. Neurovascular intact distally. No erythema, swelling, laceration, abrasion or ecchymosis. No puncture wound, foreign body or deformity. No right knee complaints or right leg complaint. Extremities otherwise negative. Neuro: Oriented X 3. No motor deficit. No sensory deficit. LABS, X-RAYS, AND EKG Laboratory Tests: Laboratory tests have been ordered, with results reviewed and considered in the medical decision making process. Foot 3V: (THOMAS: 09/04/2013 19:48)( [facility] 09/04/2013 19:48) New Order CRP: (THOMAS: 09/04/2013 19:20)( [facility] 09/04/2013 19:48) Final results Test Result Flag Units (Reference) CRP 8.700 mg/L (0.000-10.000) Sed Rate: (THOMAS: 09/04/2013 19:20)( [facility] 09/04/2013 19:52) Final results Test Result Flag Units (Reference) Sed Rate 13 mm/hr (0-15) CMP: (THOMAS: 09/04/2013 19:20)( [facility] 09/04/2013 19:55) Final results Test Result Flag Units (Reference) Glucose 126 H mg/dL (70-100) BUN 18 mg/dL (6-20) Creatinine 1.0 mg/dL (0.6-1.3) Sodium 140 mmol/L (136-145) Potassium 4.4 mmol/L (3.4-5.4) Chloride 106 mmol/L (98-107) Carbon Dioxide 26 mmol/L (20-31) Calcium 9.4 mg/dL (8.7-10.4) Alkaline Phos 66 Units/L (25-100) AST 45 H Units/L (8-33) ALT 73 H Units/L (7-40) Bilirubin,Total 0.4 mg/dL (0.3-1.2) Total Protein 7.0 g/dL (6.4-8.3) Albumin 4.1 g/dL (3.4-4.8) Ext. MDRD GFR 83 ml/min/1.732 National Kidney Foundation Guidelines Stage Description GFR 1 Normal or High 90+ 2 Mild decrease 60-89 3 Moderate decrease 30-59 4 Severe decrease 15-29 5 Kidney failure <15 Anion Gap 7 mmol/L (3-11) CBC w Auto Diff: (THOMAS: 09/04/2013 19:20)( Msg[facility]cvd 09/04/2013 20:41) Final results Test Result Flag Units (Reference) WBC 6.66 K/mcL (3.50-10.80) RBC 5.04 M/mcL (4.20-5.76) Hemoglobin 15.6 g/dL (13.1-17.5) Hematocrit 43.1 % (38.9-50.9) MCV 85.5 fL (80.0-99.0) MCH 31.0 pg (27.0-31.0) MCHC 26.2 L g/dL (32.0-36.0) RDWCV 13.0 % (11.3-14.5) Platelet 173 K/mcL (150-450) Abs Neutrophil 2.73 K/mcL (1.50-8.30) Abs Lymph 2.86 K/mcL (0.60-4.80) Abs Kimball 0.72 K/mcL (0.00-1.00) Abs Eos 0.29 K/mcL (0.10-0.30) Abs Baso 0.03 K/mcL (0.00-0.20) Nucleated RBC's 0.0 Neutrophils 40.9 L % (41.0-71.0) Lymphocytes 42.9 % (24.0-44.0) Monocytes 10.8 % (0.0-12.0) Eosinophils 4.4 H % (0.0-3.0) Basophils 0.5 % (0.0-1.0) Immature Gran 0.5 % (0.0-0.6) . Note - Tests: (XR: right foot chronic changes per er md). PROGRESS AND PROCEDURES Course of Care: 21:36. 21:35 Sep 04 2013 advised pt on the findings. has crutches and scooter at home. advised may still go to PT but needs to rest right foot. EKG cw previous. will fu with pcp this week. i have advised pt to fu with cardiology for further evaluation of his chest tightness. he is thankful and agreeable to tx poc. spoke with dr. skinner about poc. Patient is stable. Disposition: Condition: good and stable. CLINICAL IMPRESSION Right foot pain. Chest pain. Hypertension INSTRUCTIONS No strenuous activity. No weight bearing. Rest. Do not smoke. No alcohol. Follow-up: Follow up with your doctor Thursday. Call for an appointment. Understanding of the discharge instructions verbalized by patient and family. Follow-up with: Christopher Rojas MD, Cardiovascular Disease, , [address], , [place], [facility] Follow up Thursday. Call for an appointment. (Electronically signed by Feng Gramajo, N.P. 09/05/2013 1:12) Co-signature 09/05/2013 23:29 Agree with MLP's findings and plan. I reviewed the MLP's note. (Electronically signed by James Skinner M.D. - 09/05/2013 23:29) documented in this encounter Plan of Treatment Not on file documented as of this encounter Procedures Procedure Name Priority Date/Time Associated Diagnosis Comments XR FOOT 3+ VW UNILATERAL Routine 09/04/2013 7:47 PM EST SEDIMENTATION RATE Routine 09/04/2013 7: 20 PM EST CBC AND DIFFERENTIAL Routine 09/04/2013 7:20 PM EST C-REACTIVE PROTEIN Routine 09/04/2013 7: 20 PM EST COMPREHENSIVE METABOLIC PANEL Routine 09/04/2013 7:20 PM EST SCANNED EKG 09/04/2013 documented in this encounter Results * XR FOOT 3+ VW UNILATERAL (09/04/2013 7:47 PM EST) Anatomical Region Laterality Modality Radiographic Shellie ging 09/04/2013 7:47 PM EST Narrative 09/05/2013 9:20 AM EST RIGHT FOOT 09/04/2013: INDICATION: right foot pain FINDINGS: Three views of the foot reveal amputation of the third digit. The bony structures are otherwise unremarkable. Cortex is intact. Joint spaces are preserved. No joint effusion is identified. No soft tissue abnormality is seen. IMPRESSION- No evidence of fracture or dislocation. FAX TO: A E: 09/05/2013 Magnetic Tape WinderDiann Cottrell Radiologist- COLETTE RODRIGUEZ Releasing RadiologistDiann RODRIGUEZ Released Date Time- 09/05/13 1704 Procedure Note Colette Rosario MD - 05/16/2015 RIGHT FOOT 09/04/2013: INDICATION: right foot pain FINDINGS: Three views of the foot reveal amputation of the third digit. The bony structures are otherwise unremarkable. Cortex is intact. Joint spaces are preserved. No joint effusion is identified. No soft tissue abnormality is seen. IMPRESSION- No evidence of fracture or dislocation. FAX TO: A E: 09/05/2013 Magnetic Tape Winder- KEESHA Cottrell Radiologist- COLETTE RODRIGUEZ Releasing RadiologistDiann RODRIGUEZ Released Date Time- 09/05/13 1704 Feng Gramajo APRN IMG DIAGNOSTIC IMAGING ORDERABL ES Final Result * C-reactive protein (09/04/2013 7:20 PM EST) Pathologist [facility] C-Reactive Protein 8.700 0.000 - 10.000 mg/L [facility] Blood specimen (specimen) 09/04/2013 7:20 PM EST [facility] - 09/04/2013 7:48 PM EST Specimen Type: Serum 1 Feng Gramajo PREPRESS STRIPPER LAB BLOOD ORDERABLES Final Resu lt Performing Organization Address [facility] Co de Phone Number [facility] [address] [place] [address], * Sedimentation rate (09/04/2013 7:20 PM EST) Sed Rate 13 0 - 15 mm/hr [facility] Blood specimen (specimen) 09/04/2013 7:20 PM EST [facility] - 09/04/2013 7:52 PM EST Specimen Type: Blood Feng Gramajo [employer] STRIPPER LAB BLOOD ORDERABLES Final Resu lt Performing Organization Address [facility] de Phone Number [facility] [address] [place] [address], * (ABNORMAL) Comprehensive metabolic panel (09/04/2013 7:20 PM EST) Glucose 126(H) 70 - 100 mg/dL [facility] BUN 18 6 - 20 mg/dL [facility] Creatinine 1.0 0.6 - 1.3 mg/dL [facility] Sodium 140 136 - 145 mmol/L [facility] Potassium 4.4 3.4 - 5.4 mmol/L [facility] Chloride 106 98 - 107 mmol/L [facility] CO2 26 20 - 31 mmol/L [facility] Calcium 9.4 8.7 - 10.4 mg/dL [facility] Alkaline Phosphatase 66 25 - 100 Units/L [facility] AST (SGOT) 45(H) 8 - 33 Units/L [facility] ALT (SGPT) 73(H) 7 - 40 Units/L [facility] Total Bilirubin 0.4 0.3 - 1.2 mg/dL [facility] Total Protein 7.0 6.4 - 8.3 g/dL [facility] Albumin 4.1 3.4 - 4.8 g/dL [facility] eGFR 83 ml/min/1.7 32 [facility] Comment: DF by IF @ 09/04/2013 19:55 National Kidney Foundation Guidelines Stage Description GFR 1 Normal or High 90+ 2 Mild decrease 60-89 3 Moderate decrease 30-59 4 Severe decrease 15-29 5 Kidney failure <15 Anion Gap 7 3 - 11 mmol/L [facility] Blood specimen (specimen) 09/04/2013 7:20 PM EST Narrative [facility] - 09/04/2013 7:55 PM EST Specimen Type: Blood Feng Gramajo [facility] LAB BLOOD ORDERABLES Final Resu lt Performing Organization Address City/State/[facility] [place] [address], * (ABNORMAL) CBC and Differential (09/04/2013 7:20 PM EST) WBC 6.66 3.50 - 10.80 [facility] RBC 5.04 4.20 - 5.76 /[facility] Hemoglobin 15.6 13.1 - 17.5 g/dL [facility] Hematocrit 43.1 38.9 - 50.9 % [facility] MCV 85.5 80.0 - 99.0 fL [facility] MCH 31.0 27.0 - 31.0 pg [facility] MCHC 26.2(L) 32.0 - 36.0 g/dL [facility] RDW-CV 13.0 11.3 - 14.5 % [facility] Platelets 173 150 - 450 [facility] Neutrophils Absolute 2.73 1.50 - 8.30 [facility] Lymphocytes Absolute 2.86 0.60 - 4.80 [facility] Monocytes Absolute 0.72 0.00 - 1.00 [facility] Eosinophils Absolute 0.29 0.10 - 0.30 [facility] Basophils Absolute 0.03 0.00 - 0.20 [facility] nRBC 0.0 [facility] Neutrophil Rel % 40.9(L) 41.0 - 71.0 % [facility] Lymphocyte Rel % 42.9 24.0 - 44.0 % [facility] Monocyte Rel % 10.8 0.0 - 12.0 % [facility] Eosinophil Rel % 4.4(H) 0.0 - 3.0 % [facility] Basophil Rel % 0.5 0.0 - 1.0 % [facility] Immature Granulocyte Rel % 0.5 0.0 - 0.6 % [facility] Blood specimen (specimen) 09/04/2013 7:20 PM EST Narrative [facility] - 09/04/2013 8:41 PM EST Specimen Type: Blood Feng Gramajo APRN LAB BLOOD ORDERABLES Final Resu lt [facility] [address] [place] [address], * SCANNED EKG (09/04/2013) [facility] Onbase ECG ORDERABLES Final Result documented in this encounter Visit Diagnoses Not on filedocumented in this encounter Care Teams Office Machinery Or Equipment Installer Relationship Specialty Start Date End Date Rolanda Acosta APRN [address] [place] [address] PCP - General Family Medicine 02/18/16 documented as of this encounter
--- OUTSIDE RECORDS SUMMARY | 2025-04-12 10:22 | XMS_ITS | Encounter Summary ---
Author Organization [employer] ([place], [place], [place], [place]) Address [address] [place] [address] Care Team Providers Care Tanker Service Attendant Name Role Phone Unavailable Primary Care Provider Unavailabl e Encounter Details Date Type Department Care Team (Late st Contact Info) Description 12/20/2020 Transcribed Document [facility] [place] [facility] [address] ProviderStan MD [address], [place] [id number] Social History Tobacco Use Types Packs/Day Years Used Date Smoking Tobacco: Never Assessed Sex and Gender Information Value Date Recorded Sex Assigned at Male 02/18/2022 2:47 PM CDT Legal Sex Male 2:47 PM CDT Gender Identity Male 02/18/2022 2:47 PM CDT Sexual Orientation Not on file documented as of this encounter Miscellaneous Notes * Cerner Conversion Note - Stan Philip MD - 12/20/2020 7:10 PM CDT Patient Education Materials Follows: General Anesthesia, Adult, Care After This sheet gives you information about how to care for yourself after your procedure. Your health care provider may also give you more specific instructions. If you have problems or questions, contact your health care provider. What can I expect after the procedure? After the procedure, the following side effects are common: ??? Pain or discomfort at the IV site. ??? Nausea. ??? Vomiting. ??? Sore throat. ??? Trouble concentrating. ??? Feeling cold or chills. ??? Weak or tired. ??? Sleepiness and fatigue. ??? Soreness and body aches. These side effects can affect parts of the body that were not involved in surgery. Follow these instructions at home: For at least 24 hours after the procedure: ??? Have a responsible adult stay with you. It is important to have someone help care for you until you are awake and alert. ??? Rest as needed. ??? Do not: ? Participate in activities in which you could fall or become injured. ? Drive. ? Use heavy machinery. ? Drink alcohol. ? Take sleeping pills or medicines that cause drowsiness. ? Make important decisions or sign legal documents. ? Take care of children on your own. Eating and drinking ??? Follow any instructions from your health care provider about eating or drinking restrictions. ??? When you feel hungry, start by eating small amounts of foods that are soft and easy to digest (bland), such as toast. Gradually return to your regular diet. ??? Drink enough fluid to keep your urine pale yellow. ??? If you vomit, rehydrate by drinking water, juice, or clear broth. General instructions ??? If you have sleep apnea, surgery and certain medicines can increase your risk for breathing problems. Follow instructions from your health care provider about wearing your sleep device: ? Anytime you are sleeping, including during daytime naps. ? While taking prescription pain medicines, sleeping medicines, or medicines that make you drowsy. ??? Return to your normal activities as told by your health care provider. Ask your health care provider what activities are safe for you. ??? Take ecjs-vaq-muutwli and prescription medicines only as told by your health care provider. ??? If you smoke, do not smoke without supervision. ??? Keep all follow-up visits as told by your health care provider. This is important. Contact a health care provider if: ??? You have nausea or vomiting that does not get better with medicine. ??? You cannot eat or drink without vomiting. ??? You have pain that does not get better with medicine. ??? You are unable to pass urine. ??? You develop a skin rash. ??? You have a fever. ??? You have redness around your IV site that gets worse. Get help right away if: ??? You have difficulty breathing. ??? You have chest pain. ??? You have blood in your urine or stool, or you vomit blood. Summary ??? After the procedure, it is common to have a sore throat or nausea. It is also common to feel tired. ??? Have a responsible adult stay with you for the first 24 hours after general anesthesia. It is important to have someone help care for you until you are awake and alert. ??? When you feel hungry, start by eating small amounts of foods that are soft and easy to digest (bland), such as toast. Gradually return to your regular diet. ??? Drink enough fluid to keep your urine pale yellow. ??? Return to your normal activities as told by your health care provider. Ask your health care provider what activities are safe for you. This information is not intended to replace advice given to you by your health care provider. Make sure you discuss any questions you have with your health care provider. Document Revised: 08/13/2018 Document Reviewed: 03/26/2018 [employer] Patient Education ? 2020 [employer] Anterior Cervical Diskectomy and Fusion, Care After This sheet gives you information about how to care for yourself after your procedure. Your health care provider may also give you more specific instructions. If you have problems or questions, contact your health care provider. What can I expect after the procedure? After the procedure, it is common to have: ??? Neck pain. ??? Discomfort when swallowing. ??? Slight hoarseness. Follow these instructions at home: If you have a neck brace: ??? Wear it as told by your health care provider. Remove it only as told by your health care provider. ??? Keep the brace clean and dry. ??? Ask your health care provider if you should remove the brace to bathe or shower. Incision care ??? Follow instructions from your health care provider about how to take care of your incision. Make sure you: ? Wash your hands with soap and water before and after you change your bandage (dressing). If soap and water are not available, use hand electrical electronics engineer. ? Change your dressing as told by your health care provider. ? Leave stitches (sutures), skin glue, or adhesive strips in place. These skin closures may need to stay in place for 2 weeks or longer. If adhesive strip edges start to loosen and curl up, you may trim the loose edges. Do not remove adhesive strips completely unless your health care provider tells you to do that. ??? Check your incision area every day for signs of infection. Check for: ? Redness, swelling, or pain. ? Fluid or blood. ? Warmth. ? Pus or a bad smell. Managing pain, stiffness, and swelling ??? Take ddbb-jdf-mkmgtna and prescription medicines only as told by your health care provider. ??? If directed, put ice on the injured area. ? If you have a removable brace, remove it as told by your health care provider. ? Put ice in a plastic bag. ? Place a towel between your skin and the bag. ? Leave the ice on for 20 minutes, 2?3 times a day. Activity ??? Return to your normal activities as told by your health care provider. Ask your health care provider what activities are safe for you. ??? Do exercises as told by your health care provider. ??? Do not take baths, swim, or use a hot tub until your health care provider approves. ??? Do not lift anything that is heavier than 10 lb (4.5 kg), or the limit that you are told, until your health care provider says that it is safe. General instructions ??? Ask your health care provider if the medicine prescribed to you: ? Requires you to avoid driving or using heavy machinery. ? Can cause constipation. You may need to take actions to prevent or treat constipation, such as: ? Drink enough fluid to keep your urine pale yellow. ? Take nrei-men-dbkzxbq or prescription medicines. ? Eat foods that are high in fiber, such as beans, whole grains, and fresh fruits and vegetables. ? Limit foods that are high in fat and processed sugars, such as fried and sweet foods. ??? Do not use any products that contain nicotine or tobacco, such as cigarettes, e-cigarettes, and chewing tobacco. These can delay healing. If you need help quitting, ask your health care provider. ??? Keep all follow-up visits and physical therapy appointments as told by your health care provider. This is important. Contact a health care provider if you have: ??? A fever. ??? Redness, swelling, or pain around your incision. ??? Fluid or blood coming from your incision. ??? Pus or a bad smell coming from your incision. ??? Pain that is not controlled by your pain medicine. ??? Increasing hoarseness or trouble swallowing. Get help right away if you have: ??? Severe pain. ??? Sudden numbness or weakness in your arms. ??? Warmth, tenderness, or swelling in your calf. ??? Chest pain. ??? Difficulty breathing. Summary ??? After the procedure, it is common to have neck pain, discomfort when swallowing, and slight hoarseness. ??? Follow instructions from your health care provider about how to take care of your incision. ??? Check your incision area every day for signs of infection. ??? Return to your normal activities as told by your health care provider. Ask your health care provider what activities are safe for you. ??? Contact a health care provider if you have signs of infection at your incision. This information is not intended to replace advice given to you by your health care provider. Make sure you discuss any questions you have with your health care provider. Document Revised: 05/05/2019 Document Reviewed: 05/05/2019 [employer] Patient Education ? 2020 [employer] documented in this encounter Plan of Treatment Not on file documented as of this encounter Visit Diagnoses Not on filedocumented in this encounter
--- OUTSIDE RECORDS SUMMARY | 2025-04-12 10:22 | XMS_ITS | Encounter Summary ---
Author Organization [facility] Address [address] [place] [address] Care Team Providers Care Boilermaker Helper Name Role Phone Shakira Todd APRN Primary Care Provider [phone] Feng Garcia MD Unavailable Raf Rocha DO Primary Care Provider [phone] Encounter Details Date Type Department Care Team ([facility] st Contact Info) Description 08/15/2024 Orders Only External Location [address] [place] [id number] Provider, External Social History Tobacco Use Types Packs/Day Years Used Date Smoking Tobacco: Never Smokeless Tobacco: Never Alcohol Use Standard Drinks/Week Comments Never 0 (1 standard drink = 0.6 oz pur e alcohol) very rarely PHQ-2 Answer Date Recorded Patient Health Questionnaire-2 Score 0 07/19/2024 CAGE ASSESSMENT Answer Date Recorded Cage unable [...] drink first t laly in the morning (EYE-LIVE IN CAREGIVER) to steady your nerves or to get [...] Procedure Name Priority Date/Time Associated Diagnosis Comments MR THORACIC OUTSIDE IMAGES 08/15/2024 9:18 AM EST documented in this encounter Results * MR THORACIC OUTSIDE IMAGES (08/15/2024 9:18 AM EST) Anatomical Region Laterality Modality Magnetic Resonan ce 08/15/2024 9:18 AM EST us External Provider IMG MRI PROCEDURES Final Resul t documented in this encounter Visit Diagnoses Not on filedocumented in this encounter Additional Health Concerns Assessment Noted Time A fall risk assessment has been complete d for the patient 07/19/2024 2:31 PM EST A Body Mass Index follow-up plan has been documented for the patient 07/20/2024 3:01 PM EST documented as of this encounter Care Teams Boilermaker Helper Relationship Specialty Start Date End Date Shakira Todd APRN [address] [place] [address] PCP - General 01/04/21 11/23/24 Raf Rocha DO [address] [place] [address] [address] [place] [address] PCP - General 11/24/24 Feng Garcia MD [address] [place] [address] Surgeon Urology 11/24/24 documented as of this encounter
--- OUTSIDE RECORDS SUMMARY | 2025-04-12 10:22 | XMS_ITS | Encounter Summary ---
Author Organization [facility] Address [address] [place] [address] Care Team Providers Care Floral Assistant Name Role Phone Shakira Todd APRN Primary Care Provider [phone] Feng Garcia MD Unavailable Raf Rocha DO Primary Care Provider [phone] Encounter Details Date Type Department Care Team (Late st Contact Info) Description 02/08/2024 Orders Only External Location [address] [place] [phone] Provider, External Social History Tobacco Use Types Packs/Day Years Used Date Smoking Tobacco: Never Smokeless Tobacco: Never Alcohol Use Standard Drinks/Week Comments Never 0 (1 standard drink = 0.6 oz pur e alcohol) very rarely PHQ-2 Answer Date Recorded Patient Health Questionnaire-2 Score 0 02/02/2024 CAGE ASSESSMENT Answer Date Recorded Cage unable [...] drink first t laly in the morning (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) to steady your nerves or to get [...] Name Priority Date/Time Associated Diagnosis Comments MR NEURO OUTSIDE IMAGES 02/08/2024 3:23 PM EDT documented in this encounter Results * MR NEURO OUTSIDE IMAGES (02/08/2024 3:23 PM EDT) Anatomical Region Laterality Modality Magnetic Resonan ce 02/08/2024 3:23 PM EDT us External Provider IMG MRI PROCEDURES Final Resul t documented in this encounter Visit Diagnoses Not on filedocumented in this encounter Additional Health Concerns Infection Onset Date Last Indicated Resolved Time COVID-19 Rule-Out 07/11/2024 07/11/2024 07/11/2024 6:02 PM EST Assessment Noted Time A fall risk assessment has been complete d for the patient 12/22/2023 9:02 AM EDT A Body Mass Index follow-up plan has been documented for the patient 02/02/2024 12:18 PM EDT documented as of this encounter Care Teams Floral Assistant Relationship Specialty Start Date End Date Shakira Todd APRN [address] [place] [address] PCP - General 01/04/21 11/23/24 Raf Rocha DO [address] [place] [address] [address] [place] [address] PCP - General 11/24/24 Feng Garcia MD [address] [place] [address] Surgeon Urology 11/24/24 documented as of this encounter
--- OUTSIDE RECORDS SUMMARY | 2025-04-12 10:22 | XMS_ITS | Clinical Summary ---
Author Organization [facility] ([place], [place], [place], [place]) Address [address] [place] [address] Care Team Providers Care Gaming Pit Boss Name Role Phone Unavailable Primary Care Provider Unavailabl e Social History Tobacco Use Types Packs/Day Years Used Date Smoking Tobacco: Never Assessed Sex and Gender Information Value Date Recorded Sex Assigned at Male 02/18/2022 2:47 PM CDT Legal Sex Male 2:47 PM CDT Gender Identity Male 02/18/2022 2:47 PM CDT Sexual Orientation Not on file Plan of Treatment Not on file
--- OUTSIDE RECORDS SUMMARY | 2025-04-12 10:22 | XMS_ITS | Encounter Summary ---
Author Organization [employer] ([place], [place], [place], [place]) Address [address] [place] [address] Care Team Providers Care Stage Electrician Name Role Phone Unavailable Primary Care Provider Unavailabl e Encounter Details Date Type Department Care Team (Late st Contact Info) Description 12/20/2020 Transcribed Document [facility] Family Medicine [address] [place] [address] ProviderStan MD [address] [place] [address] Social History Tobacco Use Types Packs/Day Years Used Date Smoking Tobacco: Never Assessed Sex and Gender Information Value Date Recorded Sex Assigned at Male 02/18/2022 2:47 PM CDT Legal Sex Male 2:47 PM CDT Gender Identity Male 02/18/2022 2:47 PM CDT Sexual Orientation Not on file documented as of this encounter Miscellaneous Notes * Cerner Conversion Note - Stan ProviderMD - 12/20/2020 4:19 PM CDT PASTOR Main OR IntraOp Summary Primary Physician: JOHN TRINH MD Finalized Date/Time: 12/21/20 10:28:00 Pt. Name: DAYANARA TYSON /Sex: 1965 Male Med Rec #: [id number] Physician: JOHN TRINH MD Financial #: [id number] Pt. Type: O Room/Bed: Admit/Disch: 12/20/20 04:08:00 - [place] [facility] [place] Case Attendance Entry 1 Entry 2 Entry 3 Case Attendee RICE, JOHN, MD SILAS, GLEN, PA-C OTHER, ATTENDEE #1 Role Performed Surgeon/Proceduralist, Physician personal assistant Vendor First Time In 12/20/20 15:40:00 12/20/20 15:40:00 12/20/20 15:40:00 Time Out 12/20/20 18:34:00 12/20/20 18:34:00 12/20/20 18:34:00 Procedure Cervical Discectomy Cervical Discectomy Cervical Discectomy Fusion Anterior Fusion Anterior Fusion Anterior Other Attendee ALYX SHAFFER-VENDOR Superficial Wound Closed By: Last Modified By: Francois Herring, Francois Herring, Francois Herring, Rn-Traveler 12/20/20 Rn-Traveler 12/20/20 Rn-Traveler 12/20/20 18:37:52 18:37:52 18:37:52 Entry 4 Entry 5 Entry 6 Case Attendee OTHER, ATTENDEE #2 CIPRIANO BRANNON GARNER, ANGELA, STOCK HANDLER FLOORPERSON -ANS Role Performed Staff - Other Anesthesiologist of STOCK HANDLER FLOORPERSON/Nurse Job Captain Record Time In 12/20/20 15:40:00 12/20/20 15:40:00 12/20/20 15:40:00 Time Out 12/20/20 18:34:00 12/20/20 16:55:00 12/20/20 16:55:00 Procedure Cervical Discectomy Cervical Discectomy Cervical Discectomy Fusion Anterior Fusion Anterior Fusion Anterior Other Attendee CIPRIANO HOWARD-neuromonitoring Superficial Wound Closed By: Last Modified By: Francois Herring, Francois Herring, Francois Herring, Rn-Traveler 12/20/20 Rn-Traveler 12/20/20 Rn-Traveler 12/20/20 18:37:52 18:37:52 18:37:52 Entry 7 Entry 8 Entry 9 Case Attendee FANI PAGAN CHRISTOPHER, ST Shaffer, Andrea L, Rn-Traveler Role Performed Recruiting Operations Consultant Scrub, First Charge Attendant, First Time In 12/20/20 15:40:00 12/20/20 15:40:00 12/20/20 15:40:00 Time Out 12/20/20 18:34:00 12/20/20 18:34:00 12/20/20 18:34:00 Procedure Cervical Discectomy Cervical Discectomy Cervical Discectomy Fusion Anterior Fusion Anterior Fusion Anterior Other Attendee Superficial Wound Closed By: Last Modified By: Francois Herring, Francois Herring, Francois Herring Rn-Traveler 12/20/20 Rn-Traveler 12/20/20 Rn-Traveler 12/20/20 18:37:52 18:37:52 18:37:52 Entry 10 Case Attendee LUIS MOORE MD-ANS Role Performed Anesthesiologist Time In 12/20/20 16:50:00 Time Out 12/20/20 18:34:00 Procedure Cervical Discectomy Fusion Anterior Other Attendee Superficial Wound Closed By: Last Modified By: Francois Herring Rn-Traveler 12/20/20 18:37:52 [facility] IntraOp Case Attendance Audit 12/20/20 18:37:52 Automation Qtp Tester: [id number] Modifier: [id number] <+> Time Out 1 <*> Procedure Cervical Discectomy Fusion Anterior 2 <+> Time Out 2 <*> Procedure Cervical Discectomy Fusion Anterior 3 <+> Time Out 3 <*> Procedure Cervical Discectomy Fusion Anterior 4 <+> Time Out 4 <*> Procedure Cervical Discectomy Fusion Anterior 5 <*> Procedure Cervical Discectomy Fusion Anterior 6 <*> Procedure Cervical Discectomy Fusion Anterior 7 <+> Time Out 7 <*> Procedure Cervical Discectomy Fusion Anterior 8 <+> Time Out 8 <*> Procedure Cervical Discectomy Fusion Anterior 9 <+> Time Out 9 <*> Procedure Cervical Discectomy Fusion Anterior 10 <+> Time Out 10 <*> Procedure Cervical Discectomy Fusion Anterior 12/20/20 18:18:03 Automation Qtp Tester: [id number] Modifier: [id number] <+> 1 Procedure 2 <*> Procedure Cervical Discectomy Fusion Anterior 3 <*> Procedure Cervical Discectomy Fusion Anterior 4 <*> Procedure Cervical Discectomy Fusion Anterior 5 <*> Procedure Cervical Discectomy Fusion Anterior 6 <*> Procedure Cervical Discectomy Fusion Anterior 7 <*> Procedure Cervical Discectomy Fusion Anterior 8 <*> Procedure Cervical Discectomy Fusion Anterior 9 <*> Procedure Cervical Discectomy Fusion Anterior 10 <*> Procedure Cervical Discectomy Fusion Anterior 12/20/20 17:50:24 Automation Qtp Tester: [id number] Modifier: [id number] <+> Time Out 5 <*> Procedure Cervical Discectomy Fusion Anterior 6 <+> Time Out 6 <*> Procedure Cervical Discectomy Fusion Anterior <+> 10 Case Attendee <+> 10 Role Performed <+> 10 Time In <+> 10 Procedure 12/20/20 16:57:10 Automation Qtp Tester: [id number] Modifier: [id number] <+> 1 Time In 2 <+> Time In 2 <*> Procedure Cervical Discectomy Fusion Anterior 3 <+> Time In 3 <*> Procedure Cervical Discectomy Fusion Anterior 4 <+> Time In 4 <*> Procedure Cervical Discectomy Fusion Anterior 5 <+> Time In 5 <*> Procedure Cervical Discectomy Fusion Anterior 6 <+> Time In 6 <*> Procedure Cervical Discectomy Fusion Anterior 7 <+> Time In 7 <*> Procedure Cervical Discectomy Fusion Anterior 8 <+> Time In 8 <*> Procedure Cervical Discectomy Fusion Anterior 9 <+> Time In 9 <*> Procedure Cervical Discectomy Fusion Anterior 12/20/20 16:27:02 Automation Qtp Tester: [email or web address] Modifier: [id number] <+> 2 Case Attendee <+> 2 Role Performed <+> 2 Procedure <+> 3 Case Attendee <+> 3 Role Performed <+> 3 Procedure <+> 3 Other Attendee <+> 4 Case Attendee <+> 4 Role Performed <+> 4 Procedure <+> 4 Other Attendee <+> 5 Case Attendee <+> 5 Role Performed <+> 5 Procedure <+> 6 Case Attendee <+> 6 Role Performed <+> 6 Procedure <+> 7 Case Attendee <+> 7 Role Performed <+> 7 Procedure <+> 8 Case Attendee <+> 8 Role Performed <+> 8 Procedure <+> 9 Case Attendee <+> 9 Role Performed <+> 9 Procedure [facility] IntraOp Case Times Entry 1 Patient In Room Time 12/20/20 15:40:00 Out Room Time 12/20/20 18:34:00 Anesthesia Start Time 12/20/20 15:40:00 Stop Time 12/20/20 18:34:00 Anesthesia Ready 12/20/20 15:40:00 Surgery / Procedure Times Start Time 12/20/20 16:19:00 Stop Time 12/20/20 18:17:00 Last Modified By: Francois Herring Rn-Traveler 12/20/20 18:37:51 [facility] IntraOp Case Times Audit 12/20/20 18:37:51 Automation Qtp Tester: [id number] Modifier: [id number] <+> 1 Out Room Time <+> 1 Stop Time 12/20/20 18:18:01 Automation Qtp Tester: [id number] Modifier: [id number] <+> 1 Stop Time [facility] IntraOp Cautery Entry 1 ESU Identification Cautery Type Monopolar ESU ID Number [id number] ID Type Hospital Number Cautery Settings Cut Setting 30 Coag Setting 30 ESU Grounding Pad Ground Pad Type Adult Grounding Pad Site Left thigh Grounding Pad Francois Herring, Applied By Rn-Traveler Grounding Pad Site Intact Skin Condition Before Cautery Grounding Pad Site Unchanged Skin Condition After Cautery Last Modified By: Francois Herring Rn-Traveler 12/20/20 16:28:00 [facility] IntraOp Communication Entry 1 Communication To Family/Significant other Communication By JOHN TRINH MD Last Modified By: Francois Herring Rn-Traveler 12/20/20 16:28:09 [facility] IntraOp Counts Verification Entry 1 Entry 2 Procedure Cervical Discectomy Cervical Discectomy Fusion Anterior Fusion Anterior Count Info Count Type Sponge, Sharps Sponge, Sharps Counts Verification Baseline/pre-procedure Before wound closure Sequence Count Results Not Applicable Correct, surgeon notified If Incorrect or Waived complete the Counts Action Taken form: If Intentional Retention, complete the Intential Retention form: Counts Performed By Count Performed By MANFRED ARTHUR ST HOLT, CHRISTOPHER, ST (Scrub) Count Performed By Francois Herring Shaffer, Andrea L, (RN) Rn-Traveler Rn-Traveler Last Modified By: Francois Herring Shaffer, Andrea L Rn-Traveler 12/20/20 Rn-Traveler 12/20/20 16:28:49 16:28:49 [facility] IntraOp Counts Final Entry 1 Procedure Cervical Discectomy Fusion Anterior Final Count Info Count Type Sponge, Sharps Counts Verification Skin Closure/end of Sequence procedure Counts Performed By Count Performed By MANFRED ARTHUR ST (Scrub) Count Performed By Francois Herring (RN) Rn-Traveler Last Modified By: Francois Herring Rn-Traveler 12/20/20 16:30:39 [facility] IntraOp Departure from OR Entry 1 Integumentary Assessment Integumentary WDL Assessment WDL Transfer/Handoff Transfer to PACU Phase I Handoff Method Bedside/Face to face Post-op Transport Stretcher/Gurney Via Patient Transport Francois Herring, Accompanied by Rn-TravelerARLYN ANGELA, CRNA Last Modified By: Francois Herring Rn-Traveler 12/20/20 16:30:54 [facility] IntraOp Dressing and Packing Entry 1 Entry 2 Type Dressing Dressing Location NECK NECK Wound Dressing Item Telfa, Skin Closure Skin Closure Glue, Glue, Occlusive dressing Occlusive dressing Wound Packing Type Tape Type Supplemental Applications Applied By GLEN ROSEN PA-C SNELLING, LAUREL, PA-C Other Comments Last Modified By: Francois Herring Shaffer, Andrea L Rn-Traveler 12/20/20 Rn-Traveler 12/20/20 18:17:49 18:17:49 [facility] IntraOp Dressing and Packing Audit 12/20/20 18:17:49 Automation Qtp Tester: [id number] Modifier: [id number] 1 <*> Type Dressing 1 <*> Location NECK 1 <*> Wound Dressing Item Telfa, Skin Closure Glue, Occlusive dressing 1 <*> Applied By GLEN ROSEN PA-C <+> 2 Type <+> 2 Location <+> 2 Wound Dressing Item <+> 2 Applied By [facility] IntraOp Fire Risk Assessment Entry 1 Fire Info Surgical Site or 1- Yes Incision Above the Xyphoid Open O2 Source 0- No (Mask or Cannula) Available Ignition 1- Yes (ESU, Laser, Light Source) Fire Risk 2 Assessment Score Fire Score Fire Risk Yes Assessment Complete Fire Risk Francois Herring, Assessment Verified Rn-Traveler By Fire Risk 12/20/20 16:18:00 Assessment Verified Date/Time Fire Risk Standard Fire Yes Safety Precautions Followed Last Modified By: Francois Herring Rn-Traveler 12/20/20 16:31:19 [facility] IntraOp General Case Keypuncher 1 Case Information OR OR 01 SJE Case Level 1 Room Verified Yes Wound Class I - Clean Specialty Neurosurgery Anesthesia Type General ASA Class 2 Diagnosis Preop Diagnosis ADJACENT DISC DISEASE Postop Same As Preop No Postop Diagnosis SEE SURGEON'S OPERATIVE NOTE Last Modified By: Francois Herring Rn-Traveler 12/20/20 16:33:28 [facility] IntraOp General Case Data Audit 12/20/20 16:33:28 Automation Qtp Tester: [id number] Modifier: [id number] <+> 1 Postop Diagnosis [facility] IntraOp Implant Log Entry 1 Entry 2 Entry 3 Type Tissue Implant Implant (Synthetic) Implant (Synthetic) (Biologic) Implant Log Implant Type Hardware Hardware Tissue Implant Type Implant DBM PUTTY BIOREADY CHEPEAKE CAGE 8mm 14mm SCREWS Identification [id number] Description Implant Quantity 1 1 3 Implant Site CERVICAL SPINE CERVICAL SPINE CERVICAL SPINE Implant [id number] Identification Model Number Implant [id number] Identification Serial Number Implant [id number] Identification Lot Number Implant [employer] Identification Oyster Picker Name: Implant [id number] Identification Catalog Number Implant Size 2.5CC 8mm 14mm Implant Has an Yes No No Expiration Date Implant Expiration 08/13/23 Date Wasted Radioactive Material Time Implanted Tissue Implant Continue for Tissue Implant Documentation Tissue Identification Number Graft Prep Per Oyster Picker Instructions: Tissue Preparation Method: Reconstitution Solution: Reconstitution Solution Lot Number Reconstitution Solution Expiration Date: Thawing Solution Thawing Solution Lot Number Thawing Solution Expiration Date Preparation Materials, Other Preparation Materials, Other Lot Number Preparation Materials, Other Expiration Date Tissue Prepared/Processed By Oyster Picker Paperwork Completed Implant Type Comment Last Modified By: Francois Herring, Francois Herring, Francois Herring, Rn-Traveler 12/20/20 Rn-Traveler 12/20/20 Rn-Traveler 12/20/20 16:42:20 18:42:39 18:42:39 E IntraOp Implant Log Audit 12/20/20 18:42:39 Automation Qtp Tester: [id number] Modifier: [id number] <+> 2 Implant Identification Description <+> 2 Implant Identification Oyster Picker Name: <+> 2 Implant Size <+> 2 Implant Site <+> 2 Implant Quantity <+> 2 Implant Identification Catalog Number <+> 2 Implant Type <+> 2 Implant Identification Model Number <+> 2 Implant Has an Expiration Date <+> 2 Type <+> 3 Implant Identification Description <+> 3 Implant Size <+> 3 Implant Site <+> 3 Implant Quantity <+> 3 Implant Type <+> 3 Implant Identification Model Number <+> 3 Implant Has an Expiration Date <+> 3 Type [facility] IntraOp Intraoperative Assessment Entry 1 Handoff Method Bedside/Face to face Valid History / Yes Physical in Chart Preoperative Yes Checklist Reviewed/Evaluated Allergies Reviewed Yes Patient is Latex No Sensitive Isolation Not applicable Precautions Noted Level of WDL Consciousness (WDL = Alert, Oriented to Person, Place, and Time) Skin Assessment Yes Verified Present Upon IVs Arrival to OR Last Modified By: Francois Herring Rn-Traveler 12/20/20 16:33:35 [facility] IntraOp Intraoperative Equipment Entry 1 Type Equipment Equipment Equipment Juan Antonio Suction System Intraop Monitoring Electrocardiogram Three lead placement (ECG) Electrode Placement Blood Pressure Non-Invasive BP Device Source Antiembolic Devices Antiembolic Devices Sequential compression device, knee high Antiembolic Device Bilateral Location Scopes Photo/Video Documentation Photo No Video No Last Modified By: Francois Herring Rn-Traveler 12/20/20 16:33:48 [facility] IntraOp Patient Positioning Entry 1 Procedure Cervical Discectomy Fusion Anterior Body Position Supine Left Arm Position Tucked and padded at side Right Arm Position Tucked and padded at side Left Leg Position Uncrossed, parallel Right Leg Position Uncrossed, parallel Feet Uncrossed Yes Pressure Points Yes Checked Positioning Devices Arm Board, Pillows, Safety Strap, Thighs, Head Rest Device Position PILLOW UNDER KNEES; GEL PAD UNDER HEELS; GEL DONUT FOR HEAD; BILATERAL WRIST RESTRAINTS FOR INTRAOPERATIVE TRACTION Positioned By Francois Herring Rn-Teresita, ROSALINDA STODDARD CRNA, GLEN ROSEN PA-C, JOHN TRINH MD Position Verified Positioning Yes Verified by Anesthesia Positioning Yes Verified by Surgeon Last Modified By: Francois Herring Rn-Traveler 12/20/20 16:34:14 [facility] IntraOp Sign In Entry 1 Patient, Site, Yes Procedure Identified Surgical Consent Yes Confirmed Relevant Surgical Yes Documents Available Surgical Site Yes Marked by person performing procedure Anesthesia Machine Yes Check Completed Medication Checks Yes Completed Allergies Yes Airway Difficult No Airway/Aspiration Risk Difficult Yes Airway/Aspiration Intervention Equipment Available Blood Loss Risk No Blood Loss No Intervention Equipment Prepared and Ready Blood Identifiers Not applicable Verified Per Policy Hypothermia Risk Yes Warming Measures Yes Taken Last Modified By: Francois Herring Rn-Traveler 12/20/20 16:34:29 [facility] Intra Op Sign Out Entry 1 RN Confirmation Surgical Yes Procedure(s) Identified Instrument, Sponge Yes and Sharps Counts Correct/Documented Equipment Problems N/A Documented Specimen Labeled Yes Correctly Urinary Catheter N/A Documented in IView Acosta Patient Yes Recovery Concerns Reviewed with Anesthesia Provider, Surgeon and RN Acosta Patient Yes Management Concerns Reviewed with Anesthesia Provider, Surgeon and RN Safety Checklist Yes Elements Complete? RN Sign Out Francois Herring, Signature Rn-Traveler RN Sign Out 12/20/20 18:18:00 Signature Date/Time Plan of Care Outcome - Fire Risk OUTCOME STATEMENT: Goal met Patient is free from injury related to surgical fire Plan of Care Outcome - Pt Positioning OUTCOME STATEMENT: Goal met Absence of signs and symptoms of positioning injury. Plan of Care Outcome - Skin Prep OUTCOME STATEMENT: Goal met Intraoperative care is consistent with measures to prevent infection Plan of Care Outcome - Xray/Images OUTCOME STATEMENT: Goal met Absence of observable signs or symptoms of radiation injury Plan of Care Outcome - Counts OUTCOME STATEMENT: Goal met Absence of signs and symptoms of injury related to extraneous objects Last Modified By: Francois Herring Rn-Traveler 12/20/20 18:18:46 [facility] Intra Op Sign Out Audit 12/20/20 18:18:46 Automation Qtp Tester: [id number] Modifier: [id number] <+> 1 RN Sign Out Signature Date/Time [facility] IntraOp Skin Prep Entry 1 Procedure Cervical Discectomy Fusion Anterior Prescribed Yes Pre-Surgical Prep Completed Prep Area NECK, CHIN TO NIPPLES Intraop Prep Integumentary WDL Assessment WDL Prep Agents Chloraprep Prep by Francois Herring Rn-Traveler Hair Removal Last Modified By: Francois Herring Rn-Traveler 12/20/20 16:34:57 [facility] IntraOp Surgical Procedures Entry 1 Procedure Cervical Discectomy Fusion Anterior Additional ANTERIOR CERVICAL Procedure DISCECTOMY AND FUSION Description C5-6 (STAND ALONE DEVICE) Primary Procedure Yes Primary Surgeon JOHN TRINH MD Start 12/20/20 16:19:00 Stop 12/20/20 18:17:00 Anesthesia Type General Specialty Neurosurgery Wound Class I - Clean Last Modified By: Francois Herring Rn-Traveler 12/20/20 18:18:40 [facility] IntraOp Surgical Procedures Audit 12/20/20 18:18:40 Automation Qtp Tester: [id number] Modifier: [id number] 1 <*> Procedure Cervical Discectomy Fusion Anterior 1 <+> Specialty 12/20/20 18:18:30 Automation Qtp Tester: [id number] Modifier: [id number] 1 <*> Procedure Cervical Discectomy Fusion Anterior [facility] IntraOp Temp Regulation Devices Entry 1 Temp Regulation Temperature Forced Air Warming Regulation Device device Temperature Lower body Regulation Site Temperature STODDARD, ROSALINDA, STOCK HANDLER FLOORPERSON Regulation Device Applied by Last Modified By: Francois Herring Rn-Traveler 12/20/20 16:33:19 [facility] IntraOp Time Out Entry 1 Procedure to be Cervical Discectomy Performed Fusion Anterior Time Out Time Out Pause Time 12/20/20 16:18:00 All activity Yes suspended (unless life threatening emergency) Team Verbally Correct patient Confirms Information identity, Correct side and site are marked, Consent form is present and accurate, Agreement on the procedure to be done, Correct patient position, Relevant images/results properly labeled/appropriately displayed, Confirm antibiotics have been administered, Confirm the skin prep has dried, Confirm prosthesis/implant/devic e is present, Performed in location of procedure after prepped/draped Time Out Comment CLINDAMYCIN 900MG Antibiotic Yes Prophylaxis Administered Or In Progress Within the Last 60 Minutes Beta Servando N/A Administered Venous Yes Thromboembolism Prophylaxis Required Anticipated Critical Events Surgeon None expected Anesthesia Provider None expected Nursing Assures Sterility of instruments, Equipment concerns or issues, Implant Availability Essential Imaging Yes Labeled and Displayed Last Modified By: Francois Herring Rn-Traveler 12/20/20 16:32:09 SJAnnalisa IntraOp X-Ray and Images Entry 1 X-Ray/Imaging Type Fluoroscopy Fluoroscopy Type C-Arm Site CERVICAL SPINE Car Deliverer Name LATASHA FANI Protective Devices Yes Used Last Modified By: Francois Herring Rn-Traveler 12/20/20 16:35:57 Case Comments <None> Finalized By: Viki Khan RN Document Signatures Signed By: Francois Herring Rn-Traveler 12/20/20 18:47 Viki Khan RN 12/21/20 10:28 Unfinalized History Date/Time Username Reason for Unfinalizing Freetext Reason for Unfinalizing 12/21/20 10:27 DALY Chart Audit documented in this encounter Plan of Treatment Not on file documented as of this encounter Visit Diagnoses Not on filedocumented in this encounter
--- OUTSIDE RECORDS SUMMARY | 2025-04-12 10:22 | XMS_ITS | Encounter Summary ---
Author Organization [facility] Address [address] 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 Wish to be (Past 1 Month) No 03/13/2025 4:47 PM EDT Lindsey Hernandez, MANUEL 2. Non-Specific Active Suici aleksey Thoughts (Past 1 Month) No 03/13/2025 4:47 PM EDT Pedro Hernandez RN 6. Suicidal Behavior (Lifetime) No 4:47 PM EDT Lindsey Hernandez RN documented as of this encounter Plan of Treatment Not on file documented as of this encounter Goals Goal Patient Goal Type Associated Problems Recent Progress Patient-Stated? Author Autogenera tavia Goal Care Plan Autogenerated Problem No Dimple Lynch documented as of this encounter Visit Diagnoses [...] documented as of this encounter Care Teams Recreation Attendant Relationship Specialty Start Date End Date Raf Rocha DO [address] [place] [address] [place] [address] PCP - General 11/24/24 Feng Garcia MD [address] [place] [address] Surgeon Urology 11/24/24 documented as of this encounter
--- OUTSIDE RECORDS SUMMARY | 2025-04-12 10:22 | XMS_ITS | Encounter Summary ---
Author Organization [employer] ([place], [place], [place], [place]) Address [address] [place] [address] Care Team Providers Care Captain Fishing Vessel Name Role Phone Unavailable Primary Care Provider Unavailabl e Encounter Details Date Type Department Care Team (Late st Contact Info) Description 11/27/2020 Transcribed Document [facility] Family Medicine [address] [place] [address] ProviderStan MD [address], [place] [address] Social History Tobacco Use Types Packs/Day Years Used Date Smoking Tobacco: Never Assessed Sex and Gender Information Value Date Recorded Sex Assigned at Male 02/18/2022 2:47 PM CDT Legal Sex Male 2:47 PM CDT Gender Identity Male 02/18/2022 2:47 PM CDT Sexual Orientation Not on file documented as of this encounter Miscellaneous Notes * Cerner Conversion Note - Stan ProviderMD - 11/27/2020 10:29 AM CDT UM Authorization Entered On: 11/27/2020 10:30 EDT Performed On: 11/27/2020 10:29 EDT by ALBA WHEELER RN-Utilization Review Primary Insurance Authorization Authorization and Policy Numbers : Insurance 1 Health Plan: [employer] Policy Number: [id number] Authorization Number: Insurance Primary Name : [employer] Policy Number: [id number] Authorization Status-Primary : Opo status approv Authorized Service Begin Date-Primary : 12/20/2020 EDT Observation Authorization Nbr-Primary : [id number] Authorization Comments-Primary : [place] approved per letter for outpt Historical Authorization Comments-Primary : No Authorization Comments Found ALBA WHEELER RN-Utilization Review - 11/27/2020 10:29 EDT documented in this encounter Plan of Treatment Not on file documented as of this encounter Visit Diagnoses Not on filedocumented in this encounter
--- OUTSIDE RECORDS SUMMARY | 2025-04-12 10:22 | XMS_ITS | Encounter Summary ---
Author Organization [facility] Address [address] [place] [address] Care Team Providers Care House Player Name Role Phone Feng Garcia MD Unavailable Raf Rocha DO Primary Care Provider [phone] Reason for Visit * Reason Comments Med Refill Encounter Details Date Type Department Care Team ([facility] st Contact Info) Description 02/16/2025 Refill [facility] [place] [address], [address] [place] [address] Leatha Snyder MD [address] [phone] Social History Tobacco Use Types Packs/Day Years [...] Cage unable to access Not on file 01/16/2025 Maximum number of drinks you had on a given occasion in the last month? 0 drinks 01/16/2025 How many alcoholic Beverages do you typically drink in a week? 0 - 7 per week 01/16/2025 Have you ever felt you should CUT down on your d rinking? 0 01/16/2025 Have you been ANNOYED by peo ple criticizing your drinking? 0 01/16/2025 Have you felt GUILTY about your drinking? 0 01/16/2025 Have you had a drink first t laly in the morning ([employer]) to steady your nerves or to get rid of a hangover? 0 01/16/2025 CAGE Questionnaire Score 0 025 PHQ-2A Answer [...] documented as of this encounter Care Teams House Player Relationship Specialty Start Date End Date Raf Rocha DO [address] [place] [address] PCP - General 11/24/24 Feng Garcia MD [address] [place] [address] Surgeon Urology 11/24/24 documented as of this encounter
--- OUTSIDE RECORDS SUMMARY | 2025-04-12 10:22 | XMS_ITS | Clinical Summary ---
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 1.60 - 6.10 10*3/uL LAB HEMATOLOGY METHOD 03/13/2025 5:25 PM EDT [facility] Lymphocytes Absolute 1.54 1.20 - 3.90 10*3/uL LAB HEMATOLOGY METHOD 03/13/2025 5:25 PM EDT [facility] Monocytes Absolute 0.53 0.30 - 0.90 10*3/uL LAB HEMATOLOGY METHOD 03/13/2025 5:25 PM EDT [facility] Eosinophils Absolute 0.17 0.00 - 0.50 10*3/uL LAB HEMATOLOGY METHOD 03/13/2025 5:25 PM EDT [facility] Basophils Absolute 0.03 0.00 - 0.10 10*3/uL LAB HEMATOLOGY METHOD 03/13/2025 5:25 PM EDT [facility] Immature Granulocytes Absolute 0.01 0.00 - 0.06 10*3/uL LAB HEMATOLOGY METHOD 03/13/2025 5:25 PM EDT [facility] Blood Venous blood specimen / Unknown Venipuncture / Unknown 03/13/2025 5:07 PM EDT 03/13/2025 5:23 PM EDT Narrative [facility] - 03/13/2025 5:25 PM EDT Therapeutic decision making should be based on absolute values, rather than percentages. us Lexi Handy MD LAB BLOOD ORDERABLES Final Resu lt [facility] [address] [place] [address] * (ABNORMAL) CMP (03/13/2025 5:07 PM EDT) Only the most recent of2 resultswithin the time period is included. Glucose, Plasma 185(H) 74 - 99 mg/dL 03/13/2025 5:49 PM EDT [facility] BUN, Plasma 18 7 - 21 mg/dL 03/13/2025 5:49 PM EDT [facility] Creatinine, Plasma 1.19 0.70 - 1.20 mg/dL 03/13/2025 5:49 PM EDT [facility] BUN/Creatinine Ratio 15 03/13/2025 5:49 PM EDT [facility] Sodium, Plasma 141 136 - 145 mmol/L 03/13/2025 5:49 PM EDT [facility] Potassium, Plasma 4.1 3.6 - 4.9 mmol/L 03/13/2025 5:49 PM EDT [facility] Chloride, Plasma 107 97 - 107 mmol/L 03/13/2025 5:49 PM EDT [facility] CO2, Plasma 23 22 - 29 mmol/L 03/13/2025 5:49 PM EDT [facility] Anion Gap 11 6 - 16 mmol/L 03/13/2025 5:49 PM EDT [facility] Total Calcium, Plasma 9.1 8.9 - 10.2 mg/dL 03/13/2025 5:49 PM EDT [facility] Total Protein 6.5 6.3 - 7.9 g/dL 03/13/2025 5:49 PM EDT [facility] Albumin, Plasma 4.2 3.5 - 5.2 g/dL 03/13/2025 5:49 PM EDT [facility] AST, Plasma 26 10 - 50 U/L 03/13/2025 5:49 PM EDT [facility] ALT, Plasma 27 10 - 50 U/L 03/13/2025 5:49 PM EDT [facility] Alkaline Phosphatase, Plasma 67 40 - 115 U/L 03/13/2025 5:49 PM EDT [facility] Total Bilirubin, Plasma 0.6 0.2 - 1.1 mg/dL 03/13/2025 5:49 PM EDT [facility] eGFRcr 70.4 mL/min/1.7 3m*2 03/13/2025 5:49 PM EDT [facility] Comment:Reported eGFRcr in m L/min/1.73m2 is based the CKD-EPI 2020 equation that does not use a race coefficient. Blood Venous blood specimen / Unknown Venipuncture / Unknown 03/13/2025 5:07 PM EDT 03/13/2025 5:25 PM EDT us Lexi Handy MD LAB BLOOD ORDERABLES Final Resu lt [facility] [address] [place] [address] * (ABNORMAL) POCT glucose meter (03/13/2025 4:35 PM EDT) Only the most recent of3 resultswithin the time period is included. POCT Glucose 176(H) 74 - 99 mg/dL 03/13/2025 4:37 PM EDT [facility] Comment:Accuracy of a glucos e result [...] Comment 03/13/2025 4:37 PM EDT [facility] Ditch Rider ID Kena Crane 4:37 PM EDT [facility] Device ID [id number] 03/13/2025 4:37 PM EDT [facility] Specimen Type POC Capillary 03/13/2025 4:37 PM EDT [facility] Blood Capillary blood specimen / Unknown 03/13/2025 4:35 PM EDT 03/13/2025 4:37 PM EDT us Generic Provider Poct LAB POINT OF CARE TEST DOCKED DEVICE UNSOLICITED RESULTS Final Result Performing Organization Address City/State/[facility] Co de Phone Number [facility] [address] [place] [id number] * XR Scoliosis Entire Spine 2 or 3 Views (01/30/2025 9:49 AM EDT) Anatomical Region Laterality Modality Spine Digital Radiogra phy Impressions 01/30/2025 10:08 AM EDT 1. Changes of anterior cervical discectomy and fusion at C5-C6 and C6-C7 with minimal anterior subluxation at C4-C5 in flexion that partially reduces in extension. 2. Moderate degenerative disc changes and grade 1 anterolisthesis at L4-L5 without instability. 3. Neutral spine balance. CRITICAL RESULT: No. COMMUNICATION: Per this written report. Drafted by Tyler Johnson MD on 01/30/2025 10:04 AM Final report signed by Tyler Johnson MD on 01/30/2025 10:08 AM Narrative 01/30/2025 10:08 AM EDT CLINICAL INDICATION: back pain TECHNIQUE: XR SCOLIOSIS ENTIRE SPINE 2 OR 3 VIEWS, XR LUMBAR SPINE 4 VIEWS TO INCLUDE FLEXION EXTENSION, XR CERVICAL SPINE COMPLETE 4 TO 5 VIEWS COMPARISON: None. FINDINGS: 4 views of the cervical spine show anterior cervical discectomy and fusion at C5-C6 and C6-C7. Minimal anterior subluxation at C4-C5 in flexion that partially reduces in extension. No hardware complication. No fracture or bone destruction. Prevertebral soft tissues are normal. Right carotid artery stent. Left carotid artery calcification. Lung apices are normal. 4 views of the lumbar spine show disc space narrowing at L4-L5 with grade 1 anterolisthesis. No instability in flexion or extension. No fracture or bone destruction. Sacroiliac joints are normal. 2 views of the spine show no scoliotic curve. Coronal balance is neutral. Sagittal balance is neutral. No fracture or bone destruction. Sacroiliac joints are normal. Mild degenerative changes of the bilateral hip. Procedure Note Tyler Johnson MD - 01/30/2025 CLINICAL INDICATION: back pain TECHNIQUE: XR SCOLIOSIS ENTIRE SPINE 2 OR 3 VIEWS, XR LUMBAR SPINE 4 VIEWS TO INCLUDEFLEXION EXTENSION, XR CERVICAL SPINE COMPLETE 4 TO 5 VIEWS COMPARISON: None. FINDINGS: 4 views of the cervical spine show anterior cervical discectomy and fusionat C5- C6 and C6-C7. Minimal anterior subluxation at C4-C5 in flexion thatpartially reduces in extension. No hardware complication. No fracture orbone destruction. Prevertebral soft tissues are normal. Right carotidartery stent. Left carotid artery calcification. Lung apices are normal. 4 views of the lumbar spine show disc space narrowing at L4-L5 with grade1 anterolisthesis. No instability in flexion or extension. No fracture orbone destruction. Sacroiliac joints are normal. 2 views of the spine show no scoliotic curve. Coronal balance is neutral.Sagittal balance is neutral. No fracture or bone destruction. Sacroiliacjoints are normal. Mild degenerative changes of the bilateral hip. IMPRESSION: 1.Changes of anterior cervical discectomy and fusion at C5-C6 and C6-C7with minimal anterior subluxation at C4-C5 in flexion that partiallyreduces in extension. 2.Moderate degenerative disc changes and grade 1 anterolisthesis at [id number] instability. 3.Neutral spine balance. CRITICAL RESULT: No. COMMUNICATION: Per this written report. Drafted by Tyler Johnson MD on 01/30/2025 10:04 AM Final report signed by Tyler Johnson MD on 01/30/2025 10:08 AM us Dang Armas INPATIENT NURSING AIDE, DNP IMG XR PROCEDURES Maia l Result * XR Lumbar Spine 4+ Views w Flexion Extension (01/30/2025 9:49 AM EDT) Anatomical Region Laterality Modality Spine, L-spine Digital Radiogra phy Impressions 01/30/2025 10:08 AM EDT 1. Changes of anterior cervical discectomy and fusion at C5-C6 and C6-C7 with minimal anterior subluxation at C4-C5 in flexion that partially reduces in extension. 2. Moderate degenerative disc changes and grade 1 anterolisthesis at L4-L5 without instability. 3. Neutral spine balance. CRITICAL RESULT: No. COMMUNICATION: Per this written report. Drafted by Tyler Johnson MD on 01/30/2025 10:04 AM Final report signed by Tyler Johnson MD on 01/30/2025 10:08 AM Narrative 01/30/2025 10:08 AM EDT CLINICAL INDICATION: back pain TECHNIQUE: XR SCOLIOSIS ENTIRE SPINE 2 OR 3 VIEWS, XR LUMBAR SPINE 4 VIEWS TO INCLUDE FLEXION EXTENSION, XR CERVICAL SPINE COMPLETE 4 TO 5 VIEWS COMPARISON: None. FINDINGS: 4 views of the cervical spine show anterior cervical discectomy and fusion at C5-C6 and C6-C7. Minimal anterior subluxation at C4-C5 in flexion that partially reduces in extension. No hardware complication. No fracture or bone destruction. Prevertebral soft tissues are normal. Right carotid artery stent. Left carotid artery calcification. Lung apices are normal. 4 views of the lumbar spine show disc space narrowing at L4-L5 with grade 1 anterolisthesis. No instability in flexion or extension. No fracture or bone destruction. Sacroiliac joints are normal. 2 views of the spine show no scoliotic curve. Coronal balance is neutral. Sagittal balance is neutral. No fracture or bone destruction. Sacroiliac joints are normal. Mild degenerative changes of the bilateral hip. Procedure Note Tyler Johnson MD - 01/30/2025 CLINICAL INDICATION: back pain TECHNIQUE: XR SCOLIOSIS ENTIRE SPINE 2 OR 3 VIEWS, XR LUMBAR SPINE 4 VIEWS TO INCLUDEFLEXION EXTENSION, XR CERVICAL SPINE COMPLETE 4 TO 5 VIEWS COMPARISON: None. FINDINGS: 4 views of the cervical spine show anterior cervical discectomy and fusionat C5- C6 and C6-C7. Minimal anterior subluxation at C4-C5 in flexion thatpartially reduces in extension. No hardware complication. No fracture orbone destruction. Prevertebral soft tissues are normal. Right carotidartery stent. Left carotid artery calcification. Lung apices are normal. 4 views of the lumbar spine show disc space narrowing at L4-L5 with grade1 anterolisthesis. No instability in flexion or extension. No fracture orbone destruction. Sacroiliac joints are normal. 2 views of the spine show no scoliotic curve. Coronal balance is neutral.Sagittal balance is neutral. No fracture or bone destruction. Sacroiliacjoints are normal. Mild degenerative changes of the bilateral hip. IMPRESSION: 1.Changes of anterior cervical discectomy and fusion at C5-C6 and C6-C7with minimal anterior subluxation at C4-C5 in flexion that partiallyreduces in extension. 2.Moderate degenerative disc changes and grade 1 anterolisthesis at L4-G0yscyklz instability. 3.Neutral spine balance. CRITICAL RESULT: No. COMMUNICATION: Per this written report. Drafted by Tyler Johnson MD on 01/30/2025 10:04 AM Final report signed by Tyler Johnson MD on 01/30/2025 10:08 AM us Dang Armas INPATIENT NURSING AIDE, DNP IMG XR PROCEDURES Maia l Result * XR Cervical Spine Complete 4 To 5 Views (01/30/2025 9:49 AM EDT) Anatomical Region Laterality Modality Spine, C-spine Digital Radiogra phy Impressions 01/30/2025 10:08 AM EDT 1. Changes of anterior cervical discectomy and fusion at C5-C6 and C6-C7 with minimal anterior subluxation at C4-C5 in flexion that partially reduces in extension. 2. Moderate degenerative disc changes and grade 1 anterolisthesis at L4-L5 without instability. 3. Neutral spine balance. CRITICAL RESULT: No. COMMUNICATION: Per this written report. Drafted by Tyler Johnson MD on 01/30/2025 10:04 AM Final report signed by Tyler Johnson MD on 01/30/2025 10:08 AM Narrative 01/30/2025 10:08 AM EDT CLINICAL INDICATION: back pain TECHNIQUE: XR SCOLIOSIS ENTIRE SPINE 2 OR 3 VIEWS, XR LUMBAR SPINE 4 VIEWS TO INCLUDE FLEXION EXTENSION, XR CERVICAL SPINE COMPLETE 4 TO 5 VIEWS COMPARISON: None. FINDINGS: 4 views of the cervical spine show anterior cervical discectomy and fusion at C5-C6 and C6-C7. Minimal anterior subluxation at C4-C5 in flexion that partially reduces in extension. No hardware complication. No fracture or bone destruction. Prevertebral soft tissues are normal. Right carotid artery stent. Left carotid artery calcification. Lung apices are normal. 4 views of the lumbar spine show disc space narrowing at L4-L5 with grade 1 anterolisthesis. No instability in flexion or extension. No fracture or bone destruction. Sacroiliac joints are normal. 2 views of the spine show no scoliotic curve. Coronal balance is neutral. Sagittal balance is neutral. No fracture or bone destruction. Sacroiliac joints are normal. Mild degenerative changes of the bilateral hip. Procedure Note Tyler Johnson MD - 01/30/2025 CLINICAL INDICATION: back pain TECHNIQUE: XR SCOLIOSIS ENTIRE SPINE 2 OR 3 VIEWS, XR LUMBAR SPINE 4 VIEWS TO INCLUDEFLEXION EXTENSION, XR CERVICAL SPINE COMPLETE 4 TO 5 VIEWS COMPARISON: None. FINDINGS: 4 views of the cervical spine show anterior cervical discectomy and fusionat C5- C6 and C6-C7. Minimal anterior subluxation at C4-C5 in flexion thatpartially reduces in extension. No hardware complication. No fracture orbone destruction. Prevertebral soft tissues are normal. Right carotidartery stent. Left carotid artery calcification. Lung apices are normal. 4 views of the lumbar spine show disc space narrowing at L4-L5 with grade1 anterolisthesis. No instability in flexion or extension. No fracture orbone destruction. Sacroiliac joints are normal. 2 views of the spine show no scoliotic curve. Coronal balance is neutral.Sagittal balance is neutral. No fracture or bone destruction. Sacroiliacjoints are normal. Mild degenerative changes of the bilateral hip. IMPRESSION: 1.Changes of anterior cervical discectomy and fusion at C5-C6 and C6-C7with minimal anterior subluxation at C4-C5 in flexion that partiallyreduces in extension. 2.Moderate degenerative disc changes and grade 1 anterolisthesis at L4-[id number] instability. 3.Neutral spine balance. CRITICAL RESULT: No. COMMUNICATION: Per this written report. Drafted by Tyler Johnson MD on 01/30/2025 10:04 AM Final report signed by Tyler Johnson MD on 01/30/2025 10:08 AM Dang Armas INPATIENT NURSING AIDE, DNP IMG XR PROCEDURES Maia l Result * Hemoglobin and hematocrit, blood (01/17/2025 7:52 AM EDT) HGB 14.5 13.7 - 17.5 g/dL LAB HEMATOLOGY METHOD 01/17/2025 8:02 AM EDT [facility] HCT 41.6 40.0 - 51.0 % LAB HEMATOLOGY METHOD 01/17/2025 8:02 AM EDT [facility] Blood Venous blood specimen / Unknown Venipuncture / Unknown 01/17/2025 7:52 AM EDT 01/17/2025 8:00 AM EDT us Kev Toribio MD LAB BLOOD ORDERABLES Final Re sult [facility] [address] [place] [address] * (ABNORMAL) BMP (01/17/2025 7:52 AM EDT) Only the most recent of2 resultswithin the time period is included. Glucose, Plasma 97 74 - 99 mg/dL 01/17/2025 8:21 AM EDT [facility] BUN, Plasma 18 7 - 21 mg/dL 01/17/2025 8:21 AM EDT [facility] Creatinine, Plasma 1.35(H) 0.70 - 1.20 mg/dL 01/17/2025 8:21 AM EDT [facility] BUN/Creatinine Ratio 13 01/17/2025 8:21 AM EDT [facility] Sodium, Plasma 139 136 - 145 mmol/L 01/17/2025 8:21 AM EDT [facility] Potassium, Plasma 4.4 3.6 - 4.9 mmol/L 01/17/2025 8:21 AM EDT [facility] Chloride, Plasma 103 97 - 107 mmol/L 01/17/2025 8:21 AM EDT [facility] CO2, Plasma 28 22 - 29 mmol/L 01/17/2025 8:21 AM EDT [facility] Anion Gap 8 6 - 16 mmol/L 01/17/2025 8:21 AM EDT [facility] Total Calcium, Plasma 9.1 8.9 - 10.2 mg/dL 01/17/2025 8:21 AM EDT [facility] eGFRcr 60.9 mL/min/1.7 3m*2 01/17/2025 8:21 AM EDT [facility] Comment:Reported eGFRcr in m L/min/1.73m2 is based the CKD-EPI 2020 equation that does not use a race coefficient. Blood Venous blood specimen / Unknown Venipuncture / Unknown 01/17/2025 7:52 AM EDT 01/17/2025 7:59 AM EDT us Kev Toribio MD LAB BLOOD ORDERABLES Final Re sult Performing Organization Address City/[facility]/ZIP Co de Phone Number [facility] [address] [place] [address] * Troponin T, High Sensitivity, 2 Hour, Plasma (01/17/2025 12:06 AM EDT) Troponin T, High Sensitivity, 2 Hour 10 <19 ng/L 01/17/2025 12:[address] [facility] Blood Venous blood specimen / Unknown Venipuncture / Unknown 01/17/2025 12:06 AM EDT 01/17/2025 12:19 AM EDT us Byron Pastor MD LAB BLOOD ORDERABLES Final Res ult Performing Organization Address [facility] [place] [address] * CT Angio Pulmonary Embolism (01/16/2025 10:08 PM EDT) Anatomical Region Laterality Modality Chest Computed Tomogra phy Impressions 01/16/2025 10:58 PM EDT 1. No pulmonary embolism. 2. Left renal subcapsular hematoma as described above. CRITICAL RESULT: No. COMMUNICATION: Per this written report. Drafted by Aidan Guerra MD on 01/16/2025 10:53 PM Final report signed by Aidan Guerra MD on 01/16/2025 10:58 PM Narrative 01/16/2025 10:58 PM EDT CLINICAL INDICATION: recent surgery, previous PE, SOA TECHNIQUE: Imaging of the chest abdomen and pelvis was performed, from thoracic inlet through pubic symphysis, using spiral technique, following administration of IV contrast, Omnipaque 350, 100 mL according to the CT PE protocol and CT Abdomen/Pelvis protocol. Delayed (excretory phase) images were performed through the kidneys. Reformatted images in the coronal, sagittal, and oblique planes were generated from the axial data set to facilitate diagnostic accuracy. In addition, 3D images were created and reviewed. Total DLP (Dose-Length Product): 1454.45 mGy.cm (accession [id number]), 1454.45 mGy.cm (accession [id number]). Please note: The reported value represents the total of one or more individual components during the CT acquisition on this date and at this time, and as such, the same value may appear in more than one CT report depending on the interpreting/reporting physicians. COMPARISON: November 16, 2024 FINDINGS: Chest: Pulmonary Arteries/Vessels: No pulmonary embolism. Pleural/Pericardial Space: No pneumothorax. No pleural effusions. No pericardial effusion. Lymph Nodes: No lymphadenopathy within the chest. Lungs: Except for minimal dependent atelectasis, the lungs are clear. Mediastinum: Otherwise unremarkable. Chest Wall: No chest wall hematoma or contusion. Bones: No acute fracture within the chest. Abdomen: Liver/Gallbladder/Biliary System: The liver demonstrates homogeneous enhancement. Cholecystectomy. No intra- or extra-hepatic biliary ductal dilatation. Spleen: The spleen enhances homogeneously. Pancreas: The pancreas enhances homogeneously. Adrenals: The adrenals are morphologically unremarkable. Kidneys: Right kidney and ureter are unremarkable. There is a left-sided subcapsular hematoma involving the superior pole the left kidney with minimal adjacent fat stranding. Remainder of the kidney demonstrates normal enhancement and evidence of excretion which is symmetric. Bowel/Mesentery: The small bowel loops are not dilated. The large bowel loops are not dilated. The appendix is visualized and normal. Vessels/Lymph Nodes: The abdominal aorta is unremarkable. No lymphadenopathy within the abdomen or pelvis. Fluid Survey: No free fluid in the abdomen. No free fluid in the pelvis. Pelvis: The pelvic viscera are unremarkable. Body Wall: Normal. Bones: No acute fracture within the abdomen or pelvis. Procedure Note Aidan Guerra MD - 01/16/2025 CLINICAL INDICATION: recent surgery, previous PE, SOA TECHNIQUE: Imaging of the chest abdomen and pelvis was performed, from thoracic inletthrough pubic symphysis, using spiral technique, following administrationof IV contrast, Omnipaque 350, 100 mL according [address] PE protocol andCT Abdomen/Pelvis protocol. Delayed (excretory phase) images wereperformed through the kidneys. Reformatted images in the coronal,sagittal, and oblique planes were generated from the axial data set tofacilitate diagnostic accuracy. In addition, 3D images were created andreviewed. Total DLP (Dose-Length Product): 1454.45 mGy.cm (accession [id number]),1454.45 mGy.cm (accession [id number]). Please note: The reported valuerepresents the total of one or more individual components during the CTacquisition on this date and at this time, and as such, the same value mayappear in more than one CT report depending on the interpreting/reportingphysicians. COMPARISON: November 16, 2024 FINDINGS: Chest: Pulmonary Arteries/Vessels: No pulmonary embolism. Pleural/Pericardial Space: No pneumothorax. No pleural effusions. Nopericardial effusion. Lymph Nodes: No lymphadenopathy within the chest. Lungs: Except for minimal dependent atelectasis, the lungs are clear. Mediastinum: Otherwise unremarkable. Chest Wall: No chest wall hematoma or contusion. Bones: No acute fracture within the chest. Abdomen: Liver/Gallbladder/Biliary System: The liver demonstrates homogeneousenhancement. Cholecystectomy. No intra- or extra-hepatic biliary ductaldilatation. Spleen: The spleen enhances homogeneously. Pancreas: The pancreas enhances homogeneously. Adrenals: The adrenals are morphologically unremarkable. Kidneys: Right kidney and ureter are unremarkable. There is a left- sidedsubcapsular hematoma involving the superior pole the left kidney withminimal adjacent fat stranding. Remainder of the kidney demonstratesnormal enhancement and evidence of excretion which is symmetric. Bowel/Mesentery: The small bowel loops are not dilated. The large bowelloops are not dilated. The appendix is visualized and normal. Vessels/Lymph Nodes: The abdominal aorta is unremarkable. Nolymphadenopathy within the abdomen or pelvis. Fluid Survey: No free fluid in the abdomen. No free fluid in the pelvis. Pelvis: The pelvic viscera are unremarkable. Body Wall: Normal. Bones: No acute fracture within the abdomen or pelvis. IMPRESSION: 1. No pulmonary embolism. 2. Left renal subcapsular hematoma as described above. CRITICAL RESULT: No. COMMUNICATION: Per this written report. Drafted by Aidan Guerra MD on 01/16/2025 10:53 PM Final report signed by Aidan Guerra MD on 01/16/2025 10:58 PM Byron Pastor MD IMG CT PROCEDURES Final Result * CT Abdomen Pelvis w IV Contrast (01/16/2025 10:08 PM EDT) Anatomical Region Laterality Modality Abdomen, Pelvis Computed Tomogra phy Impressions 01/16/2025 10:58 PM EDT 1. No pulmonary embolism. 2. Left renal subcapsular hematoma as described above. CRITICAL RESULT: No. COMMUNICATION: Per this written report. Drafted by Aidan Guerra MD on 01/16/2025 10:53 PM Final report signed by Aidan Guerra MD on 01/16/2025 10:58 PM Narrative 01/16/2025 10:58 PM EDT CLINICAL INDICATION: recent surgery, previous PE, SOA TECHNIQUE: Imaging of the chest abdomen and pelvis was performed, from thoracic inlet through pubic symphysis, using spiral technique, following administration of IV contrast, Omnipaque 350, 100 mL according to the CT PE protocol and CT Abdomen/Pelvis protocol. Delayed (excretory phase) images were performed through the kidneys. Reformatted images in the coronal, sagittal, and oblique planes were generated from the axial data set to facilitate diagnostic accuracy. In addition, 3D images were created and reviewed. Total DLP (Dose-Length Product): 1454.45 mGy.cm (accession [id number]), 1454.45 mGy.cm (accession [id number]). Please note: The reported value represents the total of one or more individual components during the CT acquisition on this date and at this time, and as such, the same value may appear in more than one CT report depending on the interpreting/reporting physicians. COMPARISON: November 16, 2024 FINDINGS: Chest: Pulmonary Arteries/Vessels: No pulmonary embolism. Pleural/Pericardial Space: No pneumothorax. No pleural effusions. No pericardial effusion. Lymph Nodes: No lymphadenopathy within the chest. Lungs: Except for minimal dependent atelectasis, the lungs are clear. Mediastinum: Otherwise unremarkable. Chest Wall: No chest wall hematoma or contusion. Bones: No acute fracture within the chest. Abdomen: Liver/Gallbladder/Biliary System: The liver demonstrates homogeneous enhancement. Cholecystectomy. No intra- or extra-hepatic biliary ductal dilatation. Spleen: The spleen enhances homogeneously. Pancreas: The pancreas enhances homogeneously. Adrenals: The adrenals are morphologically unremarkable. Kidneys: Right kidney and ureter are unremarkable. There is a left-sided subcapsular hematoma involving the superior pole the left kidney with minimal adjacent fat stranding. Remainder of the kidney demonstrates normal enhancement and evidence of excretion which is symmetric. Bowel/Mesentery: The small bowel loops are not dilated. The large bowel loops are not dilated. The appendix is visualized and normal. Vessels/Lymph Nodes: The abdominal aorta is unremarkable. No lymphadenopathy within the abdomen or pelvis. Fluid Survey: No free fluid in the abdomen. No free fluid in the pelvis. Pelvis: The pelvic viscera are unremarkable. Body Wall: Normal. Bones: No acute fracture within the abdomen or pelvis. Procedure Note Aidan Guerra MD - 01/16/2025 CLINICAL INDICATION: recent surgery, previous PE, SOA TECHNIQUE: Imaging of the chest abdomen and pelvis was performed, from thoracic inletthrough pubic symphysis, using spiral technique, following administrationof IV contrast, Omnipaque 350, [address] PE protocol andCT Abdomen/Pelvis protocol. Delayed (excretory phase) images wereperformed through the kidneys. Reformatted images in the coronal,sagittal, and oblique planes were generated from the axial data set tofacilitate diagnostic accuracy. In addition, 3D images were created andreviewed. Total DLP (Dose-Length Product): 1454.45 mGy.cm (accession [id number]),1454.45 mGy.cm (accession [id number]). Please note: The reported valuerepresents the total of one or more individual components during the CTacquisition on this date and at this time, and as such, the same value mayappear in more than one CT report depending on the interpreting/reportingphysicians. COMPARISON: November 16, 2024 FINDINGS: Chest: Pulmonary Arteries/Vessels: No pulmonary embolism. Pleural/Pericardial Space: No pneumothorax. No pleural effusions. Nopericardial effusion. Lymph Nodes: No lymphadenopathy within the chest. Lungs: Except for minimal dependent atelectasis, the lungs are clear. Mediastinum: Otherwise unremarkable. Chest Wall: No chest wall hematoma or contusion. Bones: No acute fracture within the chest. Abdomen: Liver/Gallbladder/Biliary System: The liver demonstrates homogeneousenhancement. Cholecystectomy. No intra- or extra-hepatic biliary ductaldilatation. Spleen: The spleen enhances homogeneously. Pancreas: The pancreas enhances homogeneously. Adrenals: The adrenals are morphologically unremarkable. Kidneys: Right kidney and ureter are unremarkable. There is a left- sidedsubcapsular hematoma involving the superior pole the left kidney withminimal adjacent fat stranding. Remainder of the kidney demonstratesnormal enhancement and evidence of excretion which is symmetric. Bowel/Mesentery: The small bowel loops are not dilated. The large bowelloops are not dilated. The appendix is visualized and normal. Vessels/Lymph Nodes: The abdominal aorta is unremarkable. Nolymphadenopathy within the abdomen or pelvis. Fluid Survey: No free fluid in the abdomen. No free fluid in the pelvis. Pelvis: The pelvic viscera are unremarkable. Body Wall: Normal. Bones: No acute fracture within the abdomen or pelvis. IMPRESSION: 1. No pulmonary embolism. 2. Left renal subcapsular hematoma as described above. CRITICAL RESULT: No. COMMUNICATION: Per this written report. Drafted by Aidan Guerra MD on 01/16/2025 10:53 PM Final report signed by Aidan Guerra MD on 01/16/2025 10:58 PM us Byron Pastor MD IMG CT PROCEDURES Final Result * Urine Perez Panel (01/16/2025 8:39 PM EDT) Extra Reflex urine culture not indicated 01/16/2025 11:01 PM EDT [facility] Urine Urine specimen obtained by clean catch procedure / Unknown Non-blood Collection / Unknown 01/16/2025 8:39 PM EDT 01/16/2025 9:52 PM EDT us Byron Pastor MD LAB URINE ORDERABLES Final Res ult [facility] [address] [place] [address] * Urinalysis Microscopic Examination (01/16/2025 8:39 PM EDT) Urine Urine specimen obtained by clean catch procedure / Unknown Non-blood Collection / Unknown 01/16/2025 8:39 PM EDT 01/16/2025 8:53 PM EDT us Byron Pastor MD LAB URINE ORDERABLES Final Res ult [facility] [address] [place] [address] * (ABNORMAL) Urinalysis with reflex microscopic (Culture NOT Included) (01/16/2025 8:39 PM EDT) Color, Urine Yellow LAB URINALYSIS - AUTOMATED METHOD 01/16/2025 9:38 PM EDT [facility] Clarity, Urine Clear LAB URINALYSIS - AUTOMATED METHOD 01/16/2025 9:38 PM EDT [facility] Spec [place], Urine 1.018 1.005 - 1.030 LAB URINALYSIS - AUTOMATED METHOD 01/16/2025 9:38 PM EDT [facility] pH, Urine 6.0 5.0 - 8.0 LAB URINALYSIS - AUTOMATED METHOD 01/16/2025 9:38 PM EDT [facility] Protein, Urine Trace(A) Negative mg/dL LAB URINALYSIS - AUTOMATED METHOD 01/16/2025 9:38 PM EDT [facility] Glucose, Urine Negative Negative mg/dL LAB URINALYSIS - AUTOMATED METHOD 01/16/2025 9:38 PM EDT [facility] Ketones, Urine Negative Negative mg/dL LAB URINALYSIS - AUTOMATED METHOD 01/16/2025 9:38 PM EDT [facility] Blood, Urine Large(A) Negative LAB URINALYSIS - AUTOMATED METHOD 01/16/2025 9:38 PM EDT [facility] Bilirubin, Urine Negative Negative LAB URINALYSIS - AUTOMATED METHOD 01/16/2025 9:38 PM EDT [facility] Urobilinogen, Urine 1.0 0.2 to 1.0 mg/dL LAB URINALYSIS - AUTOMATED METHOD 01/16/2025 9:38 PM EDT [facility] Leukocytes, Urine Negative Negative LAB URINALYSIS - AUTOMATED METHOD 01/16/2025 9:38 PM EDT [facility] Nitrite, Urine Negative Negative LAB URINALYSIS - AUTOMATED METHOD 01/16/2025 9:38 PM EDT [facility] RBC, Urine 1 0 to 3 /HPF LAB URINALYSIS - AUTOMATED METHOD 01/16/2025 9:38 PM EDT [facility] Comment: Confirmed This result was previously suppressed from the chart. WBC, Urine 0 - 5 0 to 5 /HPF LAB URINALYSIS - AUTOMATED METHOD 01/16/2025 9:38 PM EDT [facility] Comment:This result was prev iously suppressed from the chart. Squamous Epithelial Cells 0 - 2 0 to 5 /HPF LAB URINALYSIS - AUTOMATED METHOD 01/16/2025 9:38 PM EDT [facility] Comment:This result was prev iously suppressed from the chart. Hyaline Casts 0 - 2 0 to 5 /LPF LAB URINALYSIS - AUTOMATED METHOD 01/16/2025 9:38 PM EDT [facility] Comment:This result was prev iously suppressed from the chart. Bacteria, Urine Negative Negative LAB URINALYSIS - AUTOMATED METHOD 01/16/2025 9:38 PM EDT [facility] Comment:This result was prev iously suppressed from the chart. Urine Urine specimen obtained by clean catch procedure / Unknown Non-blood Collection / Unknown 01/16/2025 8:39 PM EDT 01/16/2025 8:53 PM EDT Narrative [facility] - 01/16/2025 9:38 PM EDT Performed by manual method us Byron Pastor MD LAB URINE ORDERABLES Final Res ult [facility] [address] [place] [address] * Troponin now and 120 min (01/16/2025 8:27 PM EDT) Troponin T, High Sensitivity, 0 Hour 8 <19 ng/L 01/16/2025 8:58 PM EDT [facility] Blood Venous blood specimen / Unknown Venipuncture / Unknown 01/16/2025 8:27 PM EDT 01/16/2025 8:32 PM EDT Byron Pastor MD LAB BLOOD ORDERABLES Final Res ult Performing Organization Address [facility]/ZIP Co de Phone Number [facility] [address] [place] [address] * Lactic acid, venous (01/16/2025 8:27 PM EDT) [facility] Lactate, Venous, Whole Blood 1.0 0.5 - 2.2 mmol/L LAB HEMATOLOGY METHOD 01/16/2025 8:33 PM EDT [facility] Blood Venous blood specimen / Unknown Venipuncture / Unknown 01/16/2025 8:27 PM EDT 01/16/2025 8:32 PM EDT Byron Pastor MD LAB BLOOD ORDERABLES Final Res ult Performing Organization Address [facility] Co de Phone Number [facility] [address] [place] [address] * Lipase (01/16/2025 8:27 PM EDT) [facility] Lipase, Plasma 41 19 - 63 U/L 01/16/2025 8:58 PM EDT [facility] Blood Venous blood specimen / Unknown Venipuncture / Unknown 01/16/2025 8:27 PM EDT 01/16/2025 8:32 PM EDT Byron Pastor MD LAB BLOOD ORDERABLES Final Res ult Performing Organization Address [facility] Co de Phone Number [facility] [address] [place] [address] * EKG now - STAT (adult) (01/16/2025 7:46 PM EDT) Pathologist [facility] EKG DIAGNOSIS CLASS Abnormal MUSE ECG Ventricular Rate 74 BPM MUSE ECG Atrial Rate 74 BPM MUSE ECG [place] Interval 170 ms MUSE ECG QRSD Interval 84 ms MUSE ECG QT Interval 366 ms MUSE ECG QTC Interval 406 ms MUSE ECG P [place] 28 degrees MUSE ECG R [place] 42 degrees MUSE ECG T Wave [place] -18 degrees MUSE ECG Diagnosis Normal sinus rhythm MUSE ECG Diagnosis T wave abnormality, consider inferolateral ischemia , new MUSE ECG Diagnosis Abnormal ECG MUSE ECG Diagnosis MUSE ECG Diagnosis Confirmed by Norris Scott ([id number]) on 01/17/2025 12:00:41 PM MUSE ECG 01/16/2025 7:46 PM EDT 01/17/2025 12:00 PM EDT us Byron Pastor MD ECG ORDERABLES Final Result MUSE ECG * CT Guided Cryoablation Kidney Left (01/10/2025 9:35 AM EDT) Anatomical Region Laterality Modality Kidney Left Computed Tomogra phy Impressions 01/10/2025 12:10 PM EDT Technically successful left renal mass core biopsy. Technically successful cryoablation of left renal mass. PLAN: Patient will follow-up in the Vascular and Interventional Radiology clinic in 4 weeks. Antibiotic by mouth (Levaquin 500 mg once a day for 7 days) and pain control by mouth for 3 days (oxycodone 10 mg every 6 hours for 3 days), ordered to patient's pharmacy of preference. Follow-up CT renal mass in 3-6 months after cryoablation. CRITICAL RESULT: No. COMMUNICATION: Per this written report. Drafted by Zhen Fernandez MD on 01/10/2025 11:46 AM Final report signed by Zhen Fernandez MD on 01/10/2025 12:10 PM Narrative 01/10/2025 12:10 PM EDT CLINICAL HISTORY: 59-year-old male with history of left renal mass measuring approximately 2.4 cm in the upper pole, concerning for primary renal neoplasm. Patient presents for biopsy and cryoablation. TECHNIQUE: Lead Project Engineer: Zhen Fernandez MD General anesthesia was provided. Procedure: Appropriate time out was performed for the first procedure to confirm patient identity and planned procedure and side. Strict hand hygiene protocol was observed. All personnel in the room were attired in surgical hat and mask. The operators were in surgical hat, mask, sterile gloves, and sterile gowns. The site was prepped with 2% chlorhexidine for cutaneous antisepsis followed by sterile barrier draping. The patient was placed prone on the CT table and initial scanning carried out, which redemonstrated the left upper pole renal lesion. The skin overlying the planned tract was prepped and draped, and local anesthetic administered. The lesion was accessed under CT guidance with a 17-gauge coaxial needle and position confirmed. Via the needle several cores were taken with an 18-gauge biopsy device. Once sampling was felt sufficient the needle was removed. Next, two 14-gauge IceForce! 2.1 CX needles (Angled 90 ) were used for complete bracketing of the left renal mass including the surgical margin. Each needle was carefully inserted under CT fluoroscopic guidance. CT fluoroscopy was performed to confirm adequate positioning of the two cryoprobes. Next, 10 minutes of freezing for followed by 6 minutes of thawing, followed by 10 minutes of freezing and finally 6 minutes of passive thawing and 2 minutes of active thawing as per protocol. A midcycle spiral CT was performed demonstrating an adequate ice ball volume coverage of the mass. The cryoprobes were removed. Sterile occlusive dressing applied. Postprocedural CT demonstrated developing hypodensity of the left renal mass with slight amount of fat stranding and minimal adjacent high density material which was unchanged throughout the scan cycles after the initial access scan. There is no immediate complication. The patient tolerated the procedure well. Patient was transferred to recovery in stable condition. Total DLP (Dose-Length Product): 2958.19 mGy.cm. Please note: The reported value represents the total of one or more individual components during the CT acquisition on this date and at this time, and as such, the same value may appear in more than one CT report depending on the interpreting/reporting physicians. COMPARISON: CT renal mass from 11/16/2024 FINDINGS: Preprocedural CT demonstrated the left upper pole renal mass measuring approximately 2.4 cm. A midcycle spiral CT was performed demonstrating an adequate ice ball volume coverage of the mass. Postprocedural CT demonstrated hypodensity of the left renal mass with mild fat stranding surrounding the left perirenal region. COMPLICATION: No immediate. Procedure Note Zhen Fernandez MD - 01/10/2025 CLINICAL HISTORY: 59-year-old male with history of left renal mass measuring approximately2.4 cm in the upper pole, concerning for primary renal neoplasm. Patientpresents for biopsy and cryoablation. TECHNIQUE: Lead Project Engineer: Zhen Fernandez MD General anesthesia was provided. Procedure: Appropriate time out was performed for the first procedure to confirmpatient identity and planned procedure and side. Strict hand hygieneprotocol was observed. All personnel in the room were attired in surgicalhat and mask. The operators were in surgical hat, mask, sterile gloves,and sterile gowns. The site was prepped with 2% chlorhexidine forcutaneous antisepsis followed by sterile barrier draping. The patient wasplaced prone on the CT table and initial scanning carried out, whichredemonstrated the left upper pole renal lesion. The skin overlying theplanned tract was prepped and draped, and local anesthetic administered.The lesion was accessed under CT guidance with a 17-gauge coaxial needleand position confirmed. Via the needle several cores were taken with [id number] biopsy device. Once sampling was felt sufficient the needle wasremoved. Next, two 14-gauge IceForce! 2.1 CX needles (Angled 90 ) were used forcomplete bracketing of the left renal mass including the surgical margin.Each needle was carefully inserted under CT fluoroscopic guidance. CTfluoroscopy was performed to confirm adequate positioning of the twocryoprobes. Next, 10 minutes of freezing for followed by 6 minutes ofthawing, followed by 10 minutes of freezing and finally 6 minutes ofpassive thawing and 2 minutes of active thawing as per protocol. Amidcycle spiral CT was performed demonstrating an adequate ice ball volumecoverage of the mass. The cryoprobes were removed. Sterile occlusivedressing applied. Postprocedural CT demonstrated developing hypodensity of the left renalmass with slight amount of fat stranding and minimal adjacent high densitymaterial which was unchanged throughout the scan cycles after the initialaccess scan. There is no immediate complication. The patient tolerated theprocedure well. Patient was transferred to recovery in stable condition. Total DLP (Dose-Length Product): 2958.19 mGy.cm. Please note: The reportedvalue represents the total of one or more individual components during theCT acquisition on this date and at this time, and as such, the same valuemay appear in more than one CT report depending on theinterpreting/reporting physicians. COMPARISON: CT renal mass from 11/16/2024 FINDINGS: Preprocedural CT demonstrated the left upper pole renal mass measuringapproximately 2.4 cm. A midcycle spiral CT was performed demonstrating an adequate ice ballvolume coverage of the mass. Postprocedural CT demonstrated hypodensity of the left renal mass withmild fat stranding surrounding the left perirenal region. COMPLICATION: No immediate. IMPRESSION: Technically successful left renal mass core biopsy. Technically successful cryoablation of left renal mass. PLAN: Patient will follow-up in the Vascular and Interventional Radiology clinicin 4 weeks. Antibiotic by mouth (Levaquin 500 mg once a day for 7 days) and paincontrol by mouth for 3 days (oxycodone 10 mg every 6 hours for 3 days),ordered to patient's pharmacy of preference. Follow-up CT renal mass in 3-6 months after cryoablation. CRITICAL RESULT: No. COMMUNICATION: Per this written report. Drafted by Zhen Fernandez MD on 01/10/2025 11:46 AM Final report signed by Zhen Fernandez MD on 01/10/2025 12:10 PM us Isa N Cheeks INPATIENT NURSING AIDE IMG CT PROCEDURES Final Resu lt * Surgical Pathology Exam (01/10/2025 9:00 AM EDT) Case Report Surgical Pathology Case: [id number] Authorizing Provider: Zhen Fernandez MD Collected: 01/10/2025 0900 Ordering Location: [facility] Interventional Received: 01/10/2025 0913 Radiology Pathologist: Сергей Ty MD Specimen: Kidney, Left 10:42 AM EDT [facility] Final Diagnosis A. 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 10:42 AM EDT [facility] Special and Immunohistochemical Stains The following supports the diagnosis. IHC: A1-2 Carbonic Anhydrase IX: complete, circumferential membranous staining All controls show appropriate reactivity. All immunohistochemis try, in situ hybridization, and histochemical tests were developed by and are performed at the [facility], [address] [place] [address]. All tests reported here, except those addressing HER2 (breast) and PD-L1 expression as predictive markers, have not been cleared by or approved by the US Food and Drug Administration (FDA). The FDA has determined that such clearance or approval is not necessary. The laboratory is regulated under CLIA as qualified to perform high-complexity testing. The tests are used for clinical purposes. They should not be regarded as investigational or for research. This assay has not been validated on decalcified tissues. Results should be interpreted with caution given the likelihood of false negativity on decalcified specimens. 10:42 AM EDT [facility] Gross Description A. KIDNEY, LEFT Received in formalin labeled kidney, left , are 3 pink-yellow soft tissue cores that range from 0.9-1.5 cm in length and up to 0.1 cm in diameter. Entirely submitted in cassette A1. Cold Time: 0 Claire B Anay 10:42 AM EDT [facility] Note: A resident was involved in the service. I attest I examined the relevant preparations for the specimens and confirmed the diagnosis or interpretation. 10:42 AM EDT [facility] Tissue Left kidney structure / Unknown Non-blood Collection / Unknown 01/10/2025 9:00 AM EDT 01/10/2025 9:13 AM EDT Zhen Fernandez MD LAB PATHOLOGY [place] [address] * [place] AN ELECTIVE ENDOTRACHEAL AIRWAY (01/10/2025 8:04 AM EDT) Narrative Owen Bell, ERNESTO - 01/10/2025 8:04 AM EDT Owen Bell CRNA 01/10/2025 8:39 AM Airway Date/Time: 01/10/2025 8:04 AM Reason: elective Airway not difficult General Information and Staff Patient location during procedure: [place] RN POSTPARTUM: Owen Bell CRNA Performed: RN POSTPARTUM Patient Condition Indications for airway management: anesthesia Patient position: sniffing Final Airway Details Final airway type: endotracheal airway Successful airway: ETT Cuffed: yes Successful intubation technique: direct laryngoscopy Adjuncts used in placement: intubating stylet Endotracheal tube insertion site: oral Blade: Gramajo Blade size: #3 ETT size (mm): 7.5 Cormack-Lehane Classification: grade I - full view of glottis Placement verified by: chest auscultation and capnometry Measured from: lips ETT to lips (cm): 22 Additional Comments Atraumatic. No change to dentition. RSI Arian Ledesma MD ANESTHESIA ORDERABLES Final Res ult * Protime-INR (01/10/2025 6:58 AM EDT) Prothrombin Time 12.9 12.0 - 14.3 sec LAB COAGULATION METHOD 01/10/2025 7:50 AM EDT [facility] INR 1.0 0.9 - 1.1 LAB COAGULATION METHOD 01/10/2025 7:50 AM EDT [facility] Blood Venous blood specimen / Unknown Venipuncture / Unknown 01/10/2025 6:58 AM EDT 01/10/2025 7:03 AM EDT Narrative [facility] - 01/10/2025 7:50 AM EDT OPTIMAL INR RANGES FOR PATIENT ON ORAL ANTICOAGULANT THERAPY Prevention of venous thromboembolism INR 2.0 to 3.0 In patients with heart disease: Atrial fibrillation INR 2.0 to 3.0 Valvular heart disease INR 2.0 to 3.0 Tissue heart valves INR 2.0 to 3.0 Mechanical prosthetic valves INR 2.5 to 3.5 Prevention of recurrent MT INR 2.5 to 3.5 Zhen Fernandez MD LAB BLOOD ORDERABLES Final Resu lt Performing Organization Address City/State/[facility] Co de Phone Number [facility] [address] [place] [address] * CBC (01/10/2025 6:58 AM EDT) WBC Count 7.99 3.70 - 10.30 10*3/uL LAB HEMATOLOGY METHOD 01/10/2025 7:10 AM EDT [facility] RBC Count 5.05 4.60 - 6.10 10*6/uL LAB HEMATOLOGY METHOD 01/10/2025 7:10 AM EDT [facility] HGB 15.5 13.7 - 17.5 g/dL LAB HEMATOLOGY METHOD 01/10/2025 7:10 AM EDT [facility] HCT 43.8 40.0 - 51.0 % LAB HEMATOLOGY METHOD 01/10/2025 7:10 AM EDT [facility] Platelet Count 204 155 - 369 10*3/uL LAB HEMATOLOGY METHOD 01/10/2025 7:10 AM EDT [facility] MCV 87 79 - 98 fL LAB HEMATOLOGY METHOD 01/10/2025 7:10 AM EDT [facility] MCH 30.7 26.0 - 32.0 pg LAB HEMATOLOGY METHOD 01/10/2025 7:10 AM EDT [facility] MCHC 35.4 30.7 - 35.5 g/dL LAB HEMATOLOGY METHOD 01/10/2025 7:10 AM EDT [facility] RDW 12.7 11.5 - 14.5 % LAB HEMATOLOGY METHOD 01/10/2025 7:10 AM EDT [facility] MPV 9.4 8.8 - 12.5 fL LAB HEMATOLOGY METHOD 01/10/2025 7:10 AM EDT [facility] nRBC 0.0 <=0.0 per 100 WBCs LAB HEMATOLOGY METHOD 01/10/2025 7:10 AM EDT [facility] Blood Venous blood specimen / Unknown Venipuncture / Unknown 01/10/2025 6:58 AM EDT 01/10/2025 7:03 AM EDT Zhen Fernandez MD LAB BLOOD ORDERABLES Final Resu lt [facility] [address] [place] [address] * ED HIV 1/2 Antibody/Antigen Screen w/Reflex to HIV 1/2 Differentiation (11/10/2024 12:51 PM EDT) [facility] HIV 1 & 2 Antibody/Antigen Screen Non Reactive Non Reactive 11/10/2024 1:34 PM EDT [facility] Comment:Screening for HIV 1 & 2 antibodies, and P24 antigen is NONREACTIVE. No confirmatory testing is required. Blood Venous blood specimen / Unknown Venipuncture / Unknown 11/10/2024 12:51 PM EDT 11/10/2024 1:01 PM EDT Kurt Doan MD LAB BLOOD ORDERABLES Final Result Performing Organization Address [facility] Co de Phone Number [facility] [address] [place] [address] * Hepatitis C Antibody - ED (11/10/2024 12:51 PM EDT) [facility] Hepatitis C Antibody Negative Negative 11/10/2024 1:30 PM EDT [facility] Blood Venous blood specimen / Unknown Venipuncture / Unknown 11/10/2024 12:51 PM EDT 11/10/2024 1:01 PM EDT Kurt Doan MD LAB BLOOD ORDERABLES Final Result Performing Organization Address City/[facility] Co de Phone Number [facility] [address] [place] [address] from Last 3 Months or Most Recently Relevant to Health Maintenance Additional Health Concerns Active Problems Noted Date Diagnosed Date Autogenerated Problem 12/12/2024 Insurance [employer]THEM [employer]DA Advance Directives * Full Code (Latest Code Status on File) Date Activated Date Inactivated Comments 09/02/2023 11:25 AM 09/02/2023 6:39 PM Question Answer Comments Patient has decision-making capacity? Yes * Full Code Date Activated Date Inactivated Comments 06/24/2023 9:41 AM 06/24/2023 4:53 PM Question Answer Comments Patient has decision-making capacity? Yes * Full Code Date Activated Date Inactivated Comments 03/13/2023 5:35 PM 03/16/2023 3:27 PM Question Answer Comments Patient has decision-making capacity? Yes * Full Code Date Activated Date Inactivated Comments 11/03/2022 9:49 PM 11/04/2022 8:18 PM Question Answer Comments Patient has decision-making capacity? 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
--- OUTSIDE RECORDS SUMMARY | 2025-04-12 10:22 | XMS_ITS | Encounter Summary ---
Author Organization [employer] ([place], [place], [place], [place]) Address [address] [place] [address] Care Team Providers Care Director [facility] Name Role Phone Unavailable Primary Care Provider Unavailabl e Encounter Details Date Type Department Care Team (Late st Contact Info) Description 12/20/[address] [facility] [place] Family Medicine [address] [place] [address] ProviderStan MD [address] [place] [address] Social History Tobacco Use Types Packs/Day Years Used Date Smoking Tobacco: Never Assessed Sex and Gender Information Value Date Recorded Sex Assigned at Male 02/18/2022 2:47 PM CDT Legal Sex Male 2:47 PM CDT Gender Identity Male 02/18/2022 2:47 PM CDT Sexual Orientation Not on file documented as of this encounter Miscellaneous Notes * Cerner Conversion Note - Stna ProviderMD - 12/20/2020 4:19 PM CDT E Main OR PACU Summary Primary Physician: JOHN TRINH MD Finalized Date/Time: 12/20/20 19:58:49 Pt. Name: TYSON DAYANARALuz LO D.O.B./Sex: 1965 Male Med Rec #: [id number] Physician: JOHN TRINH MD Financial #: [id number] Pt. Type: O Room/Bed: Admit/Disch: 12/20/20 04:08:00 - [place] [facility] Case Times Entry 1 In PACU I 12/20/20 18:32:00 Ready for PACU 12/20/20 19:58:00 Discharge Discharge from PACU 12/20/20 19:58:00 I Last Modified By: ESTHER Graham 12/20/20 19:58:38 [facility] Main OR PACU Case Times Audit 12/20/20 19:58:38 Medical Receptionist Assistant: GAEL Modifier: GAEL <+> 1 Ready for PACU Discharge <+> 1 Discharge from PACU I Finalized By: ESTHER Graham Document Signatures Signed By: ESTHER Graham 12/20/20 19:58 Electronically signed by Kenia [facility] Conversion Shift Nurse Manager Cerner at 12/08/2022 9:37 AM CDT documented in this encounter Plan of Treatment Not on file documented as of this encounter Visit Diagnoses Not on filedocumented in this encounter
--- OUTSIDE RECORDS SUMMARY | 2025-04-12 10:22 | XMS_ITS | Encounter Summary ---
Author Organization [employer] ([place], [place], [place], [place]) Address [address] [place] [address] Care Team Providers Care Obstetric Assistant Name Role Phone Unavailable Primary Care Provider Unavailabl e Encounter Details Date Type Department Care Team (Late st Contact Info) Description 12/20/2020 Transcribed Document [facility] [place] [address] [place] [address] ProviderStan MD [address] [place] [address] Social History Tobacco Use Types [...] 12/20/2020 4:19 PM CDT PASTOR Main OR PreOp Summary Primary Physician: JOHN TRINH MD Finalized Date/Time: 12/21/20 06:02:45 Pt. Name: DAYANARA BRAVO TERESITA VillanuevaO.B./Sex: 1965 Male Med Rec #: [id number] Physician: JOHN TRINH MD Financial #: [id number] Pt. Type: O Room/Bed: Admit/Disch: 12/20/20 04:08:00 - [place] [facility] [place] Times Entry 1 In Preop 12/20/20 07:40:00 Ready for Holding n/a Room Patient Ready for 12/20/20 09:30:00 Surgery Patient Out of Preop 12/20/20 15:32:00 Patient Out of n/a Holding Room Last Modified By: Shaye Rothman RN 12/21/20 06:02:44 [facility] PreOp Case Times Audit 12/21/20 06:02:44 Grain Spouter: BAUTISTA Modifier: REBAL <+> 1 Patient Out of Preop Finalized By: Shaye Rothman RN Document Signatures Signed By: Shaye Rothman RN 12/21/20 06:02 documented in this encounter Plan of Treatment Not on file documented as of this encounter Visit Diagnoses Not on filedocumented in this encounter
--- OUTSIDE RECORDS SUMMARY | 2025-04-12 10:22 | XMS_ITS | Encounter Summary ---
Author Organization [employer] ([place], [place], [place], [place]) Address [address] [place] [address] Care Team Providers Care Development Intern Name Role Phone Unavailable Primary Care Provider Unavailabl e Encounter Details Date Type Department Care Team (Late st Contact Info) Description 12/20/2020 Transcribed Document [facility] [place] Family Medicine [facility] [place] [address] ProviderStan MD [facility] [address] [id number] Social History Tobacco Use Types Packs/Day Years Used Date Smoking Tobacco: Never Assessed Sex and Gender Information Value Date Recorded Sex Assigned at Male 02/18/2022 2:47 PM CDT Legal Sex Male 2:47 PM CDT Gender Identity Male 02/18/2022 2:47 PM CDT Sexual Orientation Not on file documented as of this encounter Miscellaneous Notes * Cerner Conversion Note - Stan ProviderMD - 12/20/2020 6:27 PM CDT DATE OF PROCEDURE: 12/20/2020 ORTHOPEDIC OPERATIVE NOTE SURGEON: Jamar Johnson MD 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 POSTOPERATIVE DIAGNOSIS: C5-6 stenosis. PROCEDURE PERFORMED: 1. Anterior cervical discectomy and fusion C5-C6, CPT code 55630. 2. Use of biomechanical cages interbody device, CPT code 14943. FLIGHT FOLLOWER: [place]. COMPLICATIONS: None. SPECIMENS: None. IMPLANTS: Jass/K2M Bridgman stand-alone device size 8 mm interbody spacer with 14 mm screws x3, and 2 mL of demineralized bone matrix putty. DESCRIPTION OF PROCEDURE: Patient was identified in the preoperative holding area at [facility] and transported to the operating room under the care of myself and anesthesia staff. The patient was placed supine on the table. General anesthesia had been induced. Once he was intubated and tube was secured. A bump was placed under shoulders to allow for slight extension of the neck. The neck was prepped and draped in a standard sterile fashion. We performed time-out to ensure the correct patient, procedure, and levels being done. We then turned attention towards incision. The anterior approach to the cervical spine was performed at C5-C6. Soft tissue dissection was carried down in line with the incision until the platysma was reached, it was divided in line with the incision. We then bluntly dissected between the sternocleidomastoid and strap muscles to reach the anterior aspect of the cervical spine. The prevertebral fascia was released. Kittner sponges within the elevated longus colli muscles off the operative level. Once this was done, we confirmed the operative level by fluoroscopy. We then turned our attention towards the discectomy after we placed a self-retaining retractor beneath the longus colli muscles at C5-C6. We removed the disk material using combination of an annulotomy knife, high-speed elian, pituitary rongeur, curette, Kerrison rongeur. It reached the posterior aspect of the disk space and we were able to place [place] pins at C5 and C6 and distracted across the disk space, which allowed for posterior decompression, which was done with the aid of an operative microscope. We removed the posterior osteophytes using a high-speed drill and Kerrison rongeur. The first longitudinal ligament came into view and it was elevated off the spinal cord with a nerve hook. It was excised with a #2 Kerrison. We also removed any additional bony osteophytes at posterior edges and at the C5-C6 endplates. At this point in time, we noted a calcified portion of the posterior longitudinal ligament, it was adherent to the dura centrally and off to the left. It tracked down behind the body at C6. We were able to remove approximately 50% of this adherent material by elevating it with a nerve hook and removed with a Kerrison rongeur. We had to keep the remaining 50% on the left aspect of the dura as it was completely adherent to the dura and we were not able to safely make a plane without durotomy. We then freed up the area around the disk material to ensure that there was no compression of spinal cord or nerve root. We judged the patency of the foramen with a nerve hook, which was found to be appropriate. There was also no cord compression and cord contour was normal. Once decompression was performed, motor-evoked potential was obtained and was normal. We then turned our attention towards fusion. We decorticated the endplates using a high-speed drill and a rasp. We then chose the appropriate size rasp for the trial spacer. It was an 8 mm spacer. This was impacted into the disk space under fluoroscopic visualization. We then used a self-drilling self-tapping screws and placed 2 screws up and 1 house piping inspector into the vertebral bodies. We locked the locking mechanism on the anterior aspect on the stand-alone device. We took final x-rays, which were found to be appropriate so were motor-evoked potentials. We copiously irrigated the wound and closed the wound in layered fashion. The patient tolerated the procedure well. /[id number] Jamar Johnson MD JR/JORGE L / / MODL /[id number] documented in this encounter Plan of Treatment Not on file documented as of this encounter Visit Diagnoses Not on filedocumented in this encounter
--- OUTSIDE RECORDS SUMMARY | 2025-04-12 10:22 | XMS_ITS | Referral Summary ---
Author Organization [employer] ([place], [place], [place], [place]) Address [address] [place] [address] Care Team Providers Care Dietitian Research Name Role Phone Unavailable Primary Care Provider [...]
--- OUTSIDE RECORDS SUMMARY | 2025-04-12 10:22 | XMS_ITS | Encounter Summary ---
Author Organization [facility] Address [address] [place] [address] Care Team Providers Care Retort Cooler Name Role Phone Shakira Todd APRN Primary Care Provider [phone] Feng Garcia MD Unavailable Raf Rocha DO Primary Care Provider [phone] Encounter Details Date Type Department Care Team (Late st Contact Info) Description 08/28/2021 Orders Only External Location [address] [place] [address] Provider, External Social History Tobacco Use Types Packs/Day Years Used Date Smoking Tobacco: Never Sex and Gender Information Value Date Recorded Sex Assigned at Male 03/13/2025 5:47 PM EDT Legal Sex Male 8:19 PM EDT Gender Identity Not on file Sexual Orientation Not on file documented as of this encounter Plan of Treatment Not on file documented as of this encounter Procedures Procedure Name Priority Date/Time Associated Diagnosis Comments MR ELBOW RIGHT W IV CONTRAST 08/28/2021 1:45 PM EST documented in this encounter Results * MR Elbow Right w IV Contrast (08/28/2021 1:45 PM EST) Anatomical Region Laterality Modality Upper Extremities Right Magnetic Reson ance 08/28/2021 1:45 PM EST us External Provider IMG MRI PROCEDURES Final Resul t documented in this encounter Visit Diagnoses Not on filedocumented in this encounter Additional Health Concerns Infection Onset Date Last Indicated Resolved Time Influenza 08/04/2023 08/04/2023 09/01/2023 5:23 AM EST COVID-19 Rule-Out 07/11/2024 07/11/2024 07/11/2024 6:02 PM EST documented as of this encounter Care Teams Retort Cooler Relationship Specialty Start Date End Date Shakira Todd APRN [address] [place] [address] PCP - General 01/04/21 11/23/24 Raf Rocha DO [address] [place] [address] [address] [place] [address] PCP - General 11/24/24 Feng Garcia MD [address] [place] [address] Surgeon Urology 11/24/24 documented as of this encounter
--- OUTSIDE RECORDS SUMMARY | 2025-04-12 10:22 | XMS_ITS | Encounter Summary ---
Author Organization [employer] ([place], [place], [place], [place]) Address [address] [place] [address] Care Team Providers Care Help Desk Associate Name Role Phone Unavailable Primary Care Provider Unavailabl e Encounter Details Date Type Department Care Team (Late st Contact Info) Description 12/20/2020 Transcribed Document [facility] [place] Family Medicine [facility] [place] [address] ProviderStan MD [address] [place] [address] Social History Tobacco Use Types Packs/Day Years Used Date Smoking Tobacco: Never Assessed Sex and Gender Information Value Date Recorded Sex Assigned at Male 02/18/2022 2:47 PM CDT Legal Sex Male 2:47 PM CDT Gender Identity Male 02/18/2022 2:47 PM CDT Sexual Orientation Not on file documented as of this encounter Miscellaneous Notes * Cerner Conversion Note - Stan ProviderMD - 12/20/2020 7:29 PM CDT [place] [id number] BRAVO DAYANARA TERESITA :1965 Visit Time:12/20/2020 What to do next Your Diagnosis Cervicalgia, Cervicalgia Instructions From Your Care Team Discharge Follow Up Instructions: 2 weeks Activity: Discharge Activity: No heavy lifting over 10 lbs Diet: Discharge Diet: Resume usual diet as tolerated Wound/Incision Care Instructions: Keep operative site/wound clean and dry Showering/Bathing Instructions: No tub bathing, soaking, or swimming. May remove dressing and shower in AM. No scrubbing incision Follow-Up Appointments Follow Up with JOHN TRINH MD When Within 2 to 3 days Comments Call for follow [facility] appointment [facility] [address] [facility] [address] [place] [id number]- Medications What How Much When Instructions Next Dose Non Formulary (magnesium) 250 Milligram(s) Oral Every Day Non Formulary (potassium) 99 Milligram(s) Oral Every Day acetaminophen (Tylenol) 325 Milligram(s) Oral Every Day allopurinol 400 Milligram(s) Oral Every Day amLODIPine 10 Milligram(s) Oral Every Day benazepril 40 Milligram(s) Oral Every Day carvedilol (Coreg 6.25 mg oral tablet) 1 Tablet(s) Oral Every Day pantoprazole 20 Milligram(s) Oral Every Day tamsulosin 0.4 Milligram(s) Oral Every Day ubiquinone (Co Q-10) 100 Milligram(s) Oral Every Day Take your medications faithfully. Do NOT skip medication. Do NOT stop taking medications without the direction of a physician. Carry a list of your medications with you at all times, and take this medication list with you to your first follow up visit. Report any side effects. Avoid herbal remedies unless discussed with your physician. As part of your treatment plan, your physician may have prescribed a limited course of a controlled substance. This medication may be given to help people with moderate or severe pain or for other medical conditions, but there are risks involved with treatment. Common side effects may include nausea, constipation, drowsiness, sweating, itching, dry mouth, and rash. More serious side effects may include cognitive and motor impairment, like problems with thinking, concentrating, alertness, and movement (e.g. slowed reflexes), and driving and operating heavy machinery can be dangerous. It is important for you to talk to your physician if you have these side effects or questions. These controlled substances can produce physical dependence and be habit-forming if taken for an extended period of time, which means that the body has gotten used to them and may experience withdrawal symptoms if they are abruptly stopped. Withdrawal symptoms can include runny nose, sweating, goose bumps, diarrhea, abdominal cramping, rapid heartbeat, difficulty sleeping, and nervousness. Please dispose of unused and medications per pharmacy guidance. Education Materials General Anesthesia, Adult, Care After This sheet [...] activities are safe for you. ??? Take jdhi-epg-ghpmldg and prescription medicines only as told by [...] provider. Document Revised: 08/13/2018 Document Reviewed: 03/26/2018 [employer] Patient Education ?? 2020 [employer] Anterior Cervical Diskectomy and Fusion, Care [...] and water are not available, use hand rapid outsole stitcher. ? Change your dressing as told by [...] Managing pain, stiffness, and swelling ??? Take exwj-mtd-xfetgoe and prescription medicines only as told by your health care provider. ??? If directed, put ice on the injured area. ? If you have a removable brace, remove it as told by your health care provider. ? Put ice in a plastic bag. ? Place a towel between your skin and the bag. ? Leave the ice on for 20 minutes, 2???3 times a day. Activity ??? Return to [...] keep your urine pale yellow. ? Take fwvx-qho-pudqqdr or prescription medicines. ? Eat foods that [...] provider. Document Revised: 05/05/2019 Document Reviewed: 05/05/2019 [employer] Patient Education ?? 2020 [employer] Emergency Awareness and Preventative Care STROKE is an EMERGENCY Every Minute Counts Act FAST and Check for these signs: FACE Does the face look uneven? ARM Does one arm drift down? SPEECH Does their speech sound strange? TIME Call at any sign of stroke Stroke Risk Factors Atrial Fibrillation (irregular heartbeat) Diabetes Family history of stroke Heart Disease Heavy alcohol use High Blood Pressure High Cholesterol Physical inactivity and obesity Smoking Cigarette Smoking The facts are clear, cigarette smoking will shorten your life. Smoking can cause many illnesses along the way. As a healthcare provider, we recommend that you stop smoking. Assistance with quitting is available by contacting 1-023-OJLONOW. This is a free resource providing counseling, support, and referral. Or you may contact your personal physician. National Suicide Prevention Lifeline: The National Suicide Prevention Lifeline is a national network of local crisis centers that provides free and confidential emotional support to people in suicidal crisis or emotional distress 24 hours a day, 7 days a week. Don't Wait! Stop a Heart Attack Before it Starts What is a heart attack? A heart attack is damage or to a part of the heart from severely decreased or lack of blood flow to the heart. Over time, arteries can become narrow from the buildup of fat and cholesterol, which is called plaque. The plaque can rupture causing a blood clot to form. When the blood clot forms, the artery can become severely narrowed or completely blocked, causing a heart attack. Heart attack is the leading cause of in the [place]. 85% of muscle damage occurs within the first 2 hours. Delay in the recognition of heart attack symptoms increases the chances of . Know the early symptoms of a heart attack: Nausea Feeling of fullness in chest Jaw Pain Pain that travels down one or both arms Fatigue/being tired Anxiety Back Pain Chest pressure, squeezing, or discomfort Shortness of breath Sweating, or a cold sweat Feeling of impending doom There are unusual signs of a heart attack, too! Women, the elderly, and diabetics may present with atypical symptoms: Fainting/dizziness Weakness Confusion Risk Factors for a Heart Attack Some heart disease risk factors, such as age and family history, cannot be changed. Others, like smoking and lack of exercise, can be changed. Smoking High Cholesterol High Blood Pressure Family History Obesity Age Gender (Males are at higher risk) Lack of Exercise Diabetes Diet Stress Excessive Alcohol Intake If you or someone you know is experiencing the signs and symptoms of a heart attack, DON???T DELAY. Call immediately and seek help. If someone collapses, perform CPR! Do not attempt to drive if you are having symptoms of heart attack. Hands-Only CPR Why Hands-Only CPR? Hands-Only CPR has been shown to be as effective as conventional CPR for cardiac arrests that occur outside of a hospital. Survival depends on immediately receiving CPR from someone nearby. How do you perform Hands-Only CPR? There are two easy steps: Call 9-1-1 if you see a teen or adult collapse Push hard and fast in the center of the chest at a beat of 100 beats per minute. Save a life! 4 WAYS TO GET AHEAD OF SEPSIS SEPSIS is a MEDICAL EMERGENCY. Time matters! Infections put you and your family at risk for a life-threatening condition called sepsis. Sepsis is the body's extreme response to an infection. It is life-threatening, and without timely treatment, sepsis can rapidly lead to tissue damage, organ failure, and . Sepsis happens when an infection you already have-in your skin, lungs, urinary tract or somewhere else-triggers a chain reaction throughout your body. 1 PREVENT INFECTIONS Take good care of chronic conditions. Talk to your doctor about getting the recommended vaccines. 2 PRACTICE GOOD HYGIENE Wash your hands frequently. Keep cuts or open sores clean and covered until they are healed. 3 KNOW THE SYMPTOMS Confusion or disorientation Shortness of breath High heart rate Fever, shivering, or feeling very cold Extreme pain or discomfort Clammy or sweaty skin 4 ACT FAST Get medical care IMMEDIATELY if you suspect sepsis or if you have an infection that is not getting better or is getting worse. To learn more about sepsis and how to prevent infections, visit www.cdc.gov/sepsis. Test Results Laboratory or Other Results This Visit (last charted value for your 12/20/2020 visit) Hematology 12/03/2020 10:35 AM WBC: 8.1 K/uL -- Normal range between ( 3.9 and 10.0 ) RBC: 5.19 Million/uL -- Normal range between ( 4.63 and 6.08 ) Hct: 44.9 % -- Normal range between ( 40.1 and 51.0 ) Hgb: 16.0 Gram/dL -- Normal range between ( 13.7 and 17.5 ) Platelet Count: 185 K/uL -- Normal range between ( 163 and 369 ) MCH: 30.8 pg -- Normal range between ( 25.6 and 32.2 ) MCHC: 35.6 Gram/dL -- Normal range between ( 32.3 and 36.5 ) MCV: 86.5 fL -- Normal range between ( 79.0 and 94.8 ) Slide Review: No RDW: 12.5 % -- Normal range between ( 11.6 and 14.4 ) MPV: 10.1 fL -- Normal range between ( 9.4 and 12.4 ) Urinalysis 12/03/2020 10:35 AM Urine Nitrite: Negative Urine Leukocyte Esterase: Negative Urine Appearance: Clear Urine Glucose Dipstick: Negative Urine Blood Dipstick: Negative Urine Type: U CleanCatch Urine Urobilinogen Dipstick: 0.2 EU/dL -- Normal range between ( 0.2 and 1.0 ) Urine Protein Dipstick: Negative Urine Color: Yellow Urine Ketones Dipstick: Negative Urine pH Dipstick: *5.0 -- Normal range between ( 6.0 and 8.0 ) Urine Bilirubin Dipstick: Negative Urine Specific [place]: 1.020 -- Normal range between ( 1.005 and 1.030 ) General Chemistry 12/03/2020 10:35 AM Creatinine Level: 1.12 mg/dL -- Normal range between ( 0.70 and 1.30 ) Sodium Level: 140 mmol/L -- Normal range between ( 136 and 146 ) Potassium Level: 4.7 mmol/L -- Normal range between ( 3.5 and 5.1 ) Chloride Level: 108 mmol/L -- Normal range between ( 102 and 112 ) Carbon Dioxide Level: 29 mmol/L -- Normal range between ( 21 and 32 ) Anion Gap: 8 -- Normal range between ( 9 and 20 ) Bun/Creatinine: 14.3 -- Normal range between ( 8.0 and 20.0 ) Calcium Level: 9.3 mg/dL -- Normal range between ( 8.5 and 10.1 ) eGFR : >60 mL/min/1.73m2 eGFR NonAfrican: >60 mL/min/1.73m2 Glucose Level: 101 mg/dL -- Normal range between ( 74 and 106 ) Blood Urea Nitrogen: 16 mg/dL -- Normal range between ( 7 and 22 ) Diagnostic Radiology 12/20/2020 6:30 PM CR Fluoro in OR: CR Fluoro in OR Patient Name:DAYANARA BRAVO I have received this information and was given the opportunity to ask questions. Patient/Tie Tape Machine Operator Name: Patient/Tie Tape Machine Operator Signature: Relationship to Patient: Clinician/Hospital Tie Tape Machine Operator Signature: Date: documented in this encounter Plan of Treatment Not on file documented as of this encounter Visit Diagnoses Not on filedocumented in this encounter
--- OUTSIDE RECORDS SUMMARY | 2025-04-12 10:22 | XMS_ITS | Encounter Summary ---
Author Organization [employer] ([place], [place], [place], [place]) Address [address] [place] [address] Care Team Providers Care Bleacher Sulfite Pulp Name Role Phone Unavailable Primary Care Provider Unavailabl e Encounter Details Date Type Department Care Team (Late st Contact Info) Description 12/03/2020 Transcribed Document [facility] [place] [facility] [place] [address] ProviderStan MD [address] [place] [id number] Social History Tobacco Use Types Packs/Day Years Used Date Smoking Tobacco: Never Assessed Sex and Gender Information Value Date Recorded Sex Assigned at Male 02/18/2022 2:47 PM CDT Legal Sex Male 2:47 PM CDT Gender Identity Male 02/18/2022 2:47 PM CDT Sexual Orientation Not on file documented as of this encounter Miscellaneous Notes * Cerner Conversion Note - Stan ProviderMD - 12/03/2020 10:00 AM CDT Patient: DAYANARA BRAVO Age: 55 Years Sex: Male : 1965 Chief Complaint Neck Pain Primary Care Provider NASREEN PINTO, LENCHO-FAM History of Present Illness This patient is a pleasant 55 yo WM who presents with neck pain. The pain has been going on for a year but has gotten progressively worse. He describes it as a sharp pain. It is now to the point that it is affecting his ADLs. He has tried NSAIDs without relief of his pain. He was seen at Dr Johnson's office and evaluated and he was offered an ACDF C5/6 and agreed to the procedure. Pt denies a h/o DVT/PE. No trouble with anesthesia in the past. No respiratory conditions including COPD/KARISHMA/asthma. Review of Systems Constitutional: Neg for fevers or chills. Eyes: Neg for blurry vision or change in vision. ENT: Neg for sore throat, ear pain, or dizziness. Cardiac: Neg for chest pain or dyspnea on exertion. Respiratory: Neg for shortness of breath. Gastrointestinal: Neg for nausea, vomiting, diarrhea, or constipation. Musculoskeletal: Pos for neck pain. Neurologic: Neg for headaches or seizures. Psychiatric: Neg for anxiety and depression. Integumentary: Neg for rash. Vital Signs T: 36.3 ??C HR: 52(Peripheral) RR: 16 BP: 156/70 SpO2: 99% HT: 177.8 cm WT: 106.82 kg BMI: 33.8 Oxygen Settings (Last) Oxygen Therapy Mode: Room air (12/03/20 11:07:00) Physical Exam Constitutional: This is a pleasant 55 yo WM in no acute distress. HEENT: Normocephalic, atraumatic. PEERLA. Extraocular muscles intact. Conjunctiva pink without exudate. Oropharynx pink and moist. Neck supple. No JVD. Cardiac: SI, S2. RRR. No M/R/G. Respiratory: Lungs CTA bilaterally. No wheezes, rales, or rhonchi. Abdomen: Soft, nontender, nondistended. Active bowel sounds. No visible masses. Musculoskeletal: Bilateral LE without clubbing, cyanosis or edema. Integumentary: Skin is pink, warm and dry. No rashes. Neurologic: CN II-XII grossly intact. Psychiatric: Judgment and affect appropriate. Assessment/Plan 1. Preoperative Evaluation- Pt underwent preoperative laboratory workup and diagnostic studies. 2. Neck Pain- Proceed with surgery as scheduled with Dr Johnson on 12/20/2020. 3. Hypertension- Continue Amlodipine, Benazepril, and Carvedilol. 4. BPH- Continue Flomax. 5. H/o CVA- No residual deficits. Plavix on hold 5 days prior to surgery. 6. Gout- Continue Allopurinol. 7. GERD- Continue Pantoprazole. Problem List/Past Medical History Ongoing CVA (cerebral vascular accident) GERD (gastroesophageal reflux disease) Gout Hypertension Renal artery occlusion Procedure/Surgical History C5 C6 fusion, carotid artery surg with stint, cholecystectomy, colonoscopy, EGD, ight shoulder surg, kidney stones surg multiple times, prostate biopsy, renal artery occlusion with stint, right 3rd toe removed, tonsillectomy. Home Medications (13) Active aleve 2 tabs, Oral, Daily allopurinol 400 mg, Oral, Daily amLODIPine 10 mg, Oral, Daily benazepril 40 mg, Oral, Daily clopidogrel 75 mg, Oral, Daily Co Q-10 100 mg, Oral, Daily Coreg 6.25 mg oral tablet 6.25 mg = 1 Tab, Oral, Daily magnesium 250 mg, Oral, Daily Non Formulary med pantoprazole 20 mg, Oral, Daily potassium 99 mg, Oral, Daily tamsulosin 0.4 mg, Oral, Daily Tylenol 325 mg, Oral, Daily Allergies penicillin (unknown) statins (muscle cramps) sulfamethoxazole-trimethoprim (Itchy, Itchy) Social History Alcohol Alcohol Use History No. Use in Last 12 Months: No. Tobacco Never (less than 100 in lifetime) Smoking Status. Never Smokeless Tobacco Status. Family History Pt mother from CHF at 70. Pt father is alive with a h/o Diabetes Mellitus. Diagnostic Results EKG- Sinus Demarcus, 60 Lab Results Test Name Test Result Date/Time Sodium Level 140 mmol/L 12/03/2020 10:35 EDT Potassium Level 4.7 mmol/L 12/03/2020 10:35 EDT Chloride Level 108 mmol/L 12/03/2020 10:35 EDT Carbon Dioxide Level 29 mmol/L 12/03/2020 10:35 EDT Anion Gap 8 (Low) 12/03/2020 10:35 EDT Glucose Level 101 mg/dL 12/03/2020 10:35 EDT Blood Urea Nitrogen 16 mg/dL 12/03/2020 10:35 EDT Creatinine Level 1.12 mg/dL 12/03/2020 10:35 EDT eGFR >60 mL/min/1.73m2 12/03/2020 10:35 EDT eGFR NonAfrican >60 mL/min/1.73m2 12/03/2020 10:35 EDT Bun/Creatinine 14.3 12/03/2020 10:35 EDT Calcium Level 9.3 mg/dL 12/03/2020 10:35 EDT WBC 8.1 K/uL 12/03/2020 10:35 EDT RBC 5.19 Million/uL 12/03/2020 10:35 EDT Hgb 16.0 Gram/dL 12/03/2020 10:35 EDT Hct 44.9 % 12/03/2020 10:35 EDT MCV 86.5 fL 12/03/2020 10:35 EDT MCH 30.8 pg 12/03/2020 10:35 EDT MCHC 35.6 Gram/dL 12/03/2020 10:35 EDT Platelet Count 185 K/uL 12/03/2020 10:35 EDT MPV 10.1 fL 12/03/2020 10:35 EDT RDW 12.5 % 12/03/2020 10:35 EDT Slide Review No 12/03/2020 10:35 EDT Urine Type U CleanCatch 12/03/2020 10:35 EDT Urine Color YELLOW2 12/03/2020 10:35 EDT Urine Appearance CLEAR2 12/03/2020 10:35 EDT Urine Specific [place] 1.020 12/03/2020 10:35 EDT Urine pH Dipstick *5.0 12/03/2020 10:35 EDT Urine Leukocyte Esterase NEGATIVE2 12/03/2020 10:35 EDT Urine Nitrite NEGATIVE2 12/03/2020 10:35 EDT Urine Protein Dipstick NEGATIVE2 12/03/2020 10:35 EDT Urine Glucose Dipstick NEGATIVE2 12/03/2020 10:35 EDT Urine Ketones Dipstick NEGATIVE2 12/03/2020 10:35 EDT Urine Urobilinogen Dipstick 0.2 12/03/2020 10:35 EDT Urine Bilirubin Dipstick NEGATIVE2 12/03/2020 10:35 EDT Urine Blood Dipstick NEGATIVE2 12/03/2020 10:35 EDT documented in this encounter Plan of Treatment Not on file documented as of this encounter Visit Diagnoses Not on filedocumented in this encounter
--- OUTSIDE RECORDS SUMMARY | 2025-04-12 10:22 | XMS_ITS | Clinical Summary ---
Author Organization [facility] Address [address] [place] [address] Care Team Providers Care Bias Cutting Machine Operator Name Role Phone Unavailable Primary Care Provider Unavailabl e Allergies Active Allergy Reactions Criticality Noted Date Comments Mfkzzmb-Spk-Ykm Reductase Inhibitors Other (See Comments) 11/02/2022 Cramping Sulfa (Sulfonamide Antibiotics) Itching 11/02/2022 Medications traMADoL (ULTRAM) 50 mg tabletIndication s:Ureteral calculus, left,Enlarged prostate,Renal calculi Take 1 Tablet by mouth EVERY 6 TO 8 HOURS PRN for Pain. 10 Tablet 11/02/2022 Active Social History Tobacco Use Types Packs/Day Years Used Date Smoking Tobacco: Never Smokeless Tobacco: Never Tobacco Cessation:Counseling Given: Not Answered Alcohol Use Standard Drinks/Week Comments Never 0 (1 standard drink = 0.6 oz pur e alcohol) Sex and Gender Information Value Date Recorded Sex Assigned at Not on file Legal Sex Male 6:20 AM EDT Gender Identity Not on file Sexual Orientation Not on file Last Filed Vital Signs Vital Sign Reading Time Taken Comments Blood Pressure 120/75 11/02/2022 9:45 AM EDT Pulse 83 11/02/2022 9:41 AM EDT Temperature 36.3 C (97.4 F) 11/02/2022 6:26 AM EDT Respiratory Rate 20 11/02/2022 6:26 AM EDT Oxygen Saturation 97% 11/02/2022 9:45 AM EDT Inhaled Oxygen Concentration - - Weight 107.2 kg (236 lb 6.4 oz) 11/02/2022 6:26 AM EDT Height 177.8 cm (5' 10 ) 11/02/2022 6:26 AM EDT Body Mass Index 33.92 11/02/2022 6:26 AM EDT Plan of Treatment Health Maintenance Due Date Last Done Comments COLOGUARD 1965 COLONOSCOPY 1965 Colorectal Screening Combination 1965 FIT 1965 HEP C SCREENING 1965 SIGMOIDOSCOPY 1965 ANNUAL WELLNESS EXAM 1969 DTAP/TDAP/TD VACCINE (1 - Tdap) 1985 Shingles Vaccine (Shingrix) (1 of 2) 02/15/2016 INFLUENZA VACCINE (#1) 2025 HEP A VACCINE Aged Out No longer elig ible based on patient's age to complete this topic HIB VACCINE Aged Out No longer eligi ble based on patient's age to complete this topic ROTOVIRUS VACCINE Aged Out No longer eligible based on patient's age to complete this topic Insurance [employer] [facility]
--- OUTSIDE RECORDS SUMMARY | 2025-04-12 10:22 | XMS_ITS | Encounter Summary ---
Author Organization [employer] ([place], [place], [place], [place]) Address [address] [place] [address] Care Team Providers Care Fox Farmer Name Role Phone Unavailable Primary Care Provider Unavailabl e Encounter Details Date Type Department Care Team (Late st Contact Info) Description 12/20/2020 Transcribed Document [facility] [place] [facility] [place] [address] ProviderStan MD [facility] [place] [id number] Social History Tobacco Use Types Packs/Day Years Used Date Smoking Tobacco: Never Assessed Sex and Gender Information Value Date Recorded Sex Assigned at Male 02/18/2022 2:47 PM CDT Legal Sex Male 2:47 PM CDT Gender Identity Male 02/18/2022 2:47 PM CDT Sexual Orientation Not on file documented as of this encounter Miscellaneous Notes * Cerner Conversion Note - Stan ProviderMD - 12/20/2020 9:23 AM CDT Pre Procedure Adult Entered On: 12/20/2020 9:28 EDT Performed On: 12/20/2020 9:23 EDT by ELKE COVARRUBIAS RN Height and Weight, Clinical Dosing Height Source : Stated Height Entry Format : [place] Height, Feet : 5 ft(Converted to: 152 cm, 60 Inch) Height, Inches : 10 Inch(Converted to: 0 ft 10 Inch, 25.40 cm) Clinical Height : 177.8 cm Weight Source : Standing scale Weight Entry Format : [place] Clinical Dosing Weight : 106.82 kg Weight, Pounds : 235 lb Body Surface Area (BSA) : 2.24 m2 Body Mass Index : 33.8 kg/m2 (HI) [place] Body Weight : 72 kg ELKE COVARRUBIAS RN - 12/20/2020 9:23 EDT Health Histories Smoking Status : Never (less than 100 in lifetime; none in last 30 days) Smokeless Tobacco Status : Never Implant/Device Type, Catering Staff Member and Model : stints both renal and carotid artery ELKE COVARRUBIAS RN - 12/20/2020 9:23 EDT Social History (As Of: 12/20/2020 09:28:03 EDT) Tobacco: Never (less than 100 in lifetime) Smoking Status. Never Smokeless Tobacco Status. (Last Updated: 12/03/2020 11:08:27 EDT by Jalyn Virgen RN) Alcohol: Alcohol Use History No. Use in Last 12 Months: No. (Last Updated: 12/03/2020 11:08:34 EDT by Jalyn Virgen RN) Substance Abuse: Drug Use Hx: No. Use in Last 12 Months: No. (Last Updated: 12/20/2020 09:20:50 EDT by ELKE COVARRUBIAS RN) Infectious Disease History Has the patient ever been tested for COVID-19? : Yes, Patient stated results Negative Where are the test results? : Unable to Obtain Date of COVID-19 test known? : Yes Date of COVID-19 Test : 07/17/2020 EST Does patient have symptoms of COVID-19? : No COVID19 Screening : No Experiencing Infectious Disease Symptoms : No symptoms Physical contact outside [place] in the last 30 days : No Infectious Disease History : Chicken pox/Shingles Tuberculosis Symptoms : None ELKE COVARRUBIAS RN - 12/20/2020 9:23 EDT COVID19 PreProcedure Screening Is this an Emergent or Add on Procedure? : No Date PreProcedure COVID-19 test known? : Yes Date of PreProcedure COVID-19 : 12/18/2020 EDT Has patient been isolated since the test : Yes Exposed to COVID19 symptoms since test? : No ELKE COVARRUBIAS RN - 12/20/2020 9:23 EDT Anesthesia/Transfusion History Family History of Anesthesia Reaction : Prior transfusion without reaction Blood Transfusion Acceptable to Patient : Yes Transfusion History : Prior anesthesia without reaction Family History of Anesthesia Reaction : None ELKE COVARRUBIAS RN - 12/20/2020 9:23 EDT Functional Assessment Living Situation : Home Patient Lives With : Spouse Persons Assisting Patient at Home : Spouse Current Daily Living Assistance : None Sensory Deficits : None Current Home Treatments : None ELKE COVARRUBIAS RN - 12/20/2020 9:23 EDT [place] Suicide Severity Rating Scale (C-SSRS) CSSRS Past Month Wish to be : No CSSRS Past Month Suicidal Thoughts : No CSSRS Lifetime Suicide Behavior : No Suicide Severity Rating Score : 0 Suicide Severity Rating : No Additional Care Required at this time ELKE COVARRUBIAS RN - 12/20/2020 9:23 EDT Psychosocial History Currently in Unsafe Situation : No ELKE COVARRUBIAS RN - 12/20/2020 9:23 EDT Advance Directive Patient has Advance Directive *Q : No, patient refuses Advance Directive information ELKE COVARRUBIAS RN - 12/20/2020 9:23 EDT General Info Arrived From : Home Mode of Arrival on Unit : Ambulatory Legal Guardian : Spouse Support Person/Pt Rep Name : Darlyn Stoll Family/Rep/Phys Notified of Admit : No Emergency Contact #1 : Darlyn Tyson Emergency Contact #1 Emergency Contact #1 Relationship : spouse Emergency Contact #2 : . Emergency Contact #2 Phone Number : . Emergency Contact #2 Relationship : . Primary Language : Hungarian Communication Barrier : None Charge Preparation Technician Needed : No ELKE COVARRUBIAS RN - 12/20/2020 9:23 EDT Sleep Apnea Risk Assmt Hx of Obstructive Sleep Apnea Diagnosis : No Snore Loudly : Yes Tired, Fatigued, or Sleepy During Day : Yes Observed Stopping Breathing During Sleep : No Have/Are Being Treated for Hypertension : Yes BMI Greater Than 35 kg/m2 : No Age over 50 Years Old : Yes Neck Circumference Greater Than 40 cm : No Gender Male : Yes STOP-BANG Sleep Apnea Risk Level Score : 5 ELKE COVARRUBIAS RN - 12/20/2020 9:23 EDT Song Scale Song Sensory Perception : No impairment Song Moisture : Rarely moist Song Activity : Walks frequently Snog Mobility : Slightly limited Song Nutrition : Adequate Song Friction and Shear : No apparent problem Song Score : 21 ELKE COVARRUBIAS RN - 12/20/2020 9:23 EDT Fall Risk Scales ABCs Fall Injury Risk Identification : None JOSEPH Hx Falls Immediate/Within 3 Months : No Joseph Secondary Diagnosis : Yes JOSEPH Use of Ambulatory Aid : None JOSEPH IV Therapy or IV Access : Yes Joseph Gait/Transferring : Normal, bedrest, immobile Joseph Mental Status : Oriented to own ability Joseph Fall Risk Score : 35 JOSEPH Fall Scale Risk Level : 25-45 Medium Risk [place] Fall Interventions : Adequate lighting, Bed in low position, Call device within reach, Non-slip footwear, Personal items within reach, Reinforced to call for assistance before getting out of bed, Room free of clutter/spills, Upper side-rails up, Wheels locked, Wires/Cords secured Barriers to Learning : None evident Learning Style Preferences Family : None Learning Style Preferences Patient : None ELKE COVARRUBIAS RN - 12/20/2020 9:23 EDT Education Topics, Day of Surgery DayofSurgery Education Grid Anesthesia/Sedation : Verbalizes understanding Fall Risks : Verbalizes understanding Family Instructions : Verbalizes understanding Infection Control : Verbalizes understanding IV's : Verbalizes understanding Plan of Care : Verbalizes understanding Responsible Adult : Verbalizes understanding ELKE COVARRUBIAS RN - 12/20/2020 9:23 EDT Valuables and Belongings Valuables and Belongings : Clothing, Personal items Clothing : Common streetwear Clothing Disposition : With family Personal Items : Cell phone Personal Items Disposition : With family ELKE COVARRUBIAS RN - 12/20/2020 9:23 EDT documented in this encounter Plan of Treatment Not on file documented as of this encounter Visit Diagnoses Not on filedocumented in this encounter
--- OUTSIDE RECORDS SUMMARY | 2025-04-12 10:22 | XMS_ITS | Encounter Summary ---
Author Organization [facility] Address [address] [place] [address] Care Team Providers Care Instructor Warper Name Role Phone Shakira Todd APRN Primary Care Provider [phone] Feng Garcia MD Unavailable Raf Rocha DO Primary Care Provider [phone] Reason for Referral * Consultation (Routine) - Closed Specialty Diagnoses / Procedures Referred By Salvatore healy Referred To Contact Hand Surgery Diagnoses Traumatic partial tear of right biceps tendon, initial encounter [facility] [address] [place] [address] [facility] [address] [place] [address] Phone: tel: fax: Referral ID Status Reason Start Date Expiration Date Visits Re quested Visits Authorized [id number] Closed 09/03/2021 03/05/2023 1 1 Encounter Details Date Type Department Care Team (Late st Contact Info) Description 09/03/2021 Community Orders [facility] [address] [place] [address] Kevin Philip Traumatic partial tear of right biceps tendon, initial encounter (Primary Dx) Social History Tobacco Use Types Packs/Day Years Used Date Smoking Tobacco: Never Sex and Gender Information Value Date Recorded Sex Assigned at Male 03/13/2025 5:47 PM EDT Legal Sex Male 8:19 PM EDT Gender Identity Not on file Sexual Orientation Not on file documented as of this encounter Plan of Treatment Scheduled Referrals Name Type Priority Associated Diagnoses Order Schedule Ambulatory referral to Orthopaedics Hand Outpatient Referral Routine Traumatic partial tear of right biceps tendon, initial encounter Expected: 09/04/2021, Expires: 03/03/2022 documented as of this encounter Visit Diagnoses Diagnosis Traumatic partial tear of right biceps tendon, initial encounter- Primary documented in this encounter Additional Health Concerns Infection Onset Date Last Indicated Resolved Time Influenza 08/04/2023 08/04/2023 09/01/2023 5:23 AM EST COVID-19 Rule-Out 07/11/2024 07/11/2024 07/11/2024 6:02 PM EST documented as of this encounter Care Teams Instructor Warper Relationship Specialty Start Date End Date Shakira Todd APRN [address] [place], [place] [id number] PCP - General 01/04/21 11/23/24 Raf Rocha DO [address] [place] [address] [address] [place] [address] PCP - General 11/24/24 Feng Garcia MD [id number] [place] [address] Surgeon Urology 11/24/24 documented as of this encounter
[2025-04-12 11:37] LABS: Alanine Aminotransferase 28 U/L (12-78); Albumin Level 4.4 g/dl (3.5-5.0); Alkaline Phosphatase 66 U/L (38-126); Aspartate Amino Transferase 29 U/L (17-59); Bilirubin,Direct 0.1 mg/dl (0.0-0.4); Bilirubin,Indirect 0.9 mg/dL (0.0-0.9); Bilirubin,Total 1.0 mg/dl (0.2-1.3); Bilirubin,Unconjugated 0.9 mg/dL (0.0-1.1); Cholesterol 117 mg/dl (140-200); HDL Cholesterol 34 mg/dl (40-60); Total Protein,Serum 6.6 g/dl (6.3-8.2); Triglycerides 174 mg/dl (30-150)
== END 2025-04-12 23:59 | disposition home or self-care (01) ==
LOC: LAB 10:01
PROVIDERS: PCP Internal Medicine; Visit Provider Physician Assistant
DX: I25.10 Atherosclerotic heart disease of native coronary artery without angina pectoris (principal); I10 Essential (primary) hypertension; E78.5 Hyperlipidemia, unspecified
CPT/HCPCS: 36415; 80061; 80076

== ENCOUNTER 2025-05-23 08:44 | Outpatient (RCR) | payer OTHER, SELFPAY | END 2025-05-23 23:59 | disposition home or self-care (01) | LOC: OT 08:44 | PROVIDERS: Visit Provider Nurse Practitioner Family | DX: Z47.89 Encounter for other orthopedic aftercare (principal); Z98.890 Other specified postprocedural states | CPT/HCPCS: 97166 ==

== ENCOUNTER 2025-06-22 08:00 | Outpatient (RCR) | payer OTHER, SELFPAY | END 2025-06-22 23:59 | disposition home or self-care (01) | LOC: OT 08:00 | PROVIDERS: Visit Provider Nurse Practitioner Family | DX: Z47.89 Encounter for other orthopedic aftercare (principal); Z98.890 Other specified postprocedural states | CPT/HCPCS: 97014; 97110; 97140; G0283 ==

== ENCOUNTER 2025-07-12 08:00 | Outpatient (RCR) | payer OTHER, SELFPAY | END 2025-07-12 23:59 | disposition home or self-care (01) | LOC: OT 08:00 | PROVIDERS: Visit Provider Nurse Practitioner Family | DX: S46.022D Laceration of muscle(s) and tendon(s) of the rotator cuff of left shoulder, subsequent encounter (principal); Z98.890 Other specified postprocedural states; V89.2XXD Person injured in unspecified motor-vehicle accident, traffic, subsequent encounter | CPT/HCPCS: 97014; 97110; 97140; G0283 ==

== ENCOUNTER 2025-07-16 22:27 | Emergency (ER) | payer BC, SELFPAY ==
[2025-07-16 22:37] VITALS: BP 129/78; PULSE 83; RESP 20; TEMP 36.9; O2SAT 98; BMI 33.8
--- NOTE | 2025-07-16 22:41 | PC.NURSE ---
Pt awake alert and oriented Skin pink warm and dry Resp full and easy Speech clear and appropriate Pt in SR per continuous heart monitor.
--- NOTE | 2025-07-16 22:47 | XR_ITS ---
PROCEDURE INFORMATION: Exam: XR Chest Exam date and time: 07/16/2025 10:56 PM Age: 60 years old Clinical indication: Pain; Cough and dyspnea; Other: Cp; Prior surgery; Surgery date: 1-6 months; Surgery type: L rotator cuff surgery 3 month ago; Additional info: Dyspnea, chest pain, productive cough, left arm pain. TECHNIQUE: Imaging protocol: Radiologic exam of the chest. Views: 2 views. COMPARISON: CT ANGIO CHEST PE PROTOCOL 11/06/2024 3:59 PM FINDINGS: Lungs: Unremarkable. No consolidation. Pleural spaces: Unremarkable. No pleural effusion. No pneumothorax. Heart/Mediastinum: PFO closure device. No cardiomegaly. Bones/joints: No acute findings. Cervical spine fusion changes. IMPRESSION: No acute findings.
[2025-07-16 22:52] LABS: Hematocrit 43.4 % (42.0-52.0); Hemoglobin 16.1 g/dL (14.1-18.0); Immature Granulocytes % 0.4 %; Mean Corpuscular HGB Conc 37.1 g/dL (31.8-35.4); Mean Corpuscular Hemoglobin 32.3 pg (27.0-31.2); Mean Corpuscular Volume 87.0 fl (80-94); Nucleated Red Blood Cells % 0 %; Platelet Count 160 K/mm3 (142-424); Red Blood Count 4.99 M/mm3 (4.60-6.20); Red Cell Distribution Width-SD 38.4 fL; White Blood Count 6.8 K/mm3 (4.8-10.8)
--- NOTE | 2025-07-16 22:54 | [facility].EDCP ---
Discharge Plan Disposition Patient Disposition: Home, Self-Care Prescriptions Prescriptions: New benzonatate 100 mg capsule 100 mg PO Q6H PRN (Reason: cough) Qty: 30 0RF No Action (DME) blood-glucose meter [Blood Glucose Monitoring] Kit See Rx Instructions .ROUTE .MEDSUPPLY Qty: 1 0RF Rx Instructions: As directed amlodipine 10 mg tablet 10 mg PO DAILY Qty: 90 3RF (DME) blood-glucose meter [Accu-Chek Guide Glucose Meter] Misc See Rx Instructions .ROUTE .MEDSUPPLY Qty: 1 Patient Comments: USE DIRECTED Rx Instructions: As directed aspirin [Adult Aspirin Regimen] 81 mg tablet,delayed release (DR/EC) 81 mg PO DAILY Qty: 30 2RF ondansetron 4 mg tablet,disintegrating 4 mg PO Q6H PRN (Reason: Nausea) Patient Comments: DISSOLVE 1 TABLET IN MOUTH EVERY 6 HOURS NEEDED FOR NAUSEA metformin 1,000 mg tablet 500 mg PO DAILY ciclopirox 0.77 % cream 1 applic topical BID 180 Days Qty: 90 1RF sildenafil [Viagra] 100 mg tablet 100 mg PO DAILY PRN Rx Instructions: administer 30 minutes to 4 hours before activity levocetirizine 5 mg tablet 5 mg PO DAILY Qty: 30 2RF allopurinol 300 mg tablet 300 mg PO DAILY Qty: 90 1RF levalbuterol tartrate [Xopenex HFA] 45 mcg/actuation HFA aerosol inhaler 2 inh inhalation Q6H PRN (Reason: shortness of breath or wheezing) 90 Days Qty: 15 3RF Rx Instructions: Allergic to Sulfa and cannot take albuterol (DME) lancets [Accu-Chek Softclix Lancets] Misc See Rx Instructions .ROUTE .COMPLEX Qty: 100 0RF Dose Instruction: USE DIRECTED Rx Instructions: USE DIRECTED (DME) Accu-Chek Guide test strips Strip See Rx Instructions .ROUTE .COMPLEX Qty: 50 6RF Dose Instruction: USE DIRECTED Rx Instructions: USE DIRECTED ropinirole 0.25 mg tablet See Rx Instructions .ROUTE .COMPLEX Qty: 30 2RF Dose Instruction: TAKE 1 TABLET BY MOUTH AT BEDTIME ADMINISTER 1 TO 3 HOURS BEFORE BEDTIME Rx Instructions: TAKE 1 TABLET BY MOUTH AT BEDTIME ADMINISTER 1 TO 3 HOURS BEFORE BEDTIME benazepril 40 mg tablet See Rx Instructions .ROUTE .COMPLEX Qty: 90 3RF Dose Instruction: TAKE 1 TABLET BY MOUTH ONCE DAILY FOR HIGH BLOOD PRESSURE Rx Instructions: TAKE 1 TABLET BY MOUTH ONCE DAILY FOR HIGH BLOOD PRESSURE pantoprazole 40 mg tablet,delayed release (DR/EC) See Rx Instructions .ROUTE .COMPLEX Qty: 90 1RF Dose Instruction: TAKE 1 TABLET BY MOUTH ONCE DAILY FOR GERD Rx Instructions: TAKE 1 TABLET BY MOUTH ONCE DAILY FOR GERD hydralazine 25 mg tablet 25 mg PO TID PRN (Reason: SBP >180) Qty: 90 2RF tramadol 50 mg tablet 100 mg PO Q8H PRN (Reason: pain) Qty: 60 0RF tizanidine 4 mg tablet See Rx Instructions .ROUTE .COMPLEX Qty: 30 0RF Dose Instruction: TAKE 1 TABLET BY MOUTH EVERY 8 HOURS NEEDED FOR MUSCLE SPASTICITY Rx Instructions: TAKE 1 TABLET BY MOUTH EVERY 8 HOURS NEEDED FOR MUSCLE SPASTICITY duloxetine 20 mg capsule,delayed release(DR/EC) See Rx Instructions .ROUTE .COMPLEX Qty: 180 3RF Dose Instruction: Take 1 capsule by mouth twice daily Rx Instructions: Take 1 capsule by mouth twice daily meloxicam 15 mg tablet See Rx Instructions .ROUTE .COMPLEX Qty: 90 3RF Dose Instruction: Take 1 tablet by mouth once daily Rx Instructions: Take 1 tablet by mouth once daily (DME) Dexcom G7 Sensor Device See Rx Instructions .ROUTE .COMPLEX Qty: 3 5RF Dose Instruction: USE DIRECTED Rx Instructions: USE DIRECTED rosuvastatin 40 mg tablet See Rx Instructions .ROUTE .COMPLEX Qty: 90 3RF Dose Instruction: TAKE 1 TABLET BY MOUTH ONCE DAILY FOR HIGH CHOLESTEROL Rx Instructions: TAKE 1 TABLET BY MOUTH ONCE DAILY FOR HIGH CHOLESTEROL furosemide 20 mg tablet 20 mg PO DAILY Referrals Follow up/Referrals: Raf Rocha DO [Primary Care Provider, Family Practice] - See instructions Activity Restrictions/Add. Instructions Additional Instructions/Restrictions: I sent Flores Hawkins for cough. Please follow-up with your primary care provider. Please return to the emergency department if you develop any new or worsening symptoms or become concerned for your health. Clinical Impressions Clinical Impression: Cough, Malaise, COVID Print Language Print Language: Moroccan Discharge ED Provider: Braeden Mtz HPI <Wayne Mar DO - Last Filed: 07/16/25 23:19> General Chief Complaint: Chest Pain Stated Complaint: cough,SOA,pain on left side arm Time Seen by Provider: 07/16/25 22:38 Mode of Arrival: Ambulatory Source of Information: Patient Description of Symptoms (Recalled from ER Triage Doc. by RN): Pt c/o cough and left arm and leg pain History of Present Illness HPI narrative: This is a 60-year-old male patient, with past medical history of hypertension, diabetes, clear-cell renal carcinoma currently in remission, as well as coronary artery disease, who is presenting to the emergency department today for evaluation of shortness of breath. The patient states that around 4 days ago he began feeling rundown with rhinorrhea, congestion, body aches and chills. He has not had a fever yet at home. He states that since the onset of symptoms he has developed a cough with production of phlegm as well as chest pain. No abdominal pain. No nausea, vomiting, or diarrhea. Pain in his chest does not radiate. He additionally tells me that since the onset of these symptoms his blood sugars have been running higher than usual Related Data Home Medications ?Medication ?Instructions ?Recorded ?Confirmed furosemide 20 mg tablet 20 mg PO DAILY Heart Failure 05/11/23 07/11/25 blood-glucose meter (Accu-Chek #1 ea 01/12/25 07/11/25 Guide Glucose Meter) ondansetron 4 mg disintegrating 4 mg PO Q6H PRN Nausea 02/08/25 07/11/25 tablet metformin 1,000 mg tablet 500 mg PO DAILY 03/24/25 07/11/25 sildenafil 100 mg tablet (Viagra) 100 mg PO DAILY PRN 03/31/25 07/11/25 Previous Rx's ?Medication ?Instructions ?Recorded allopurinol 300 mg tablet 300 mg PO DAILY Gout #90 tabs 11/16/24 amlodipine 10 mg tablet 10 mg PO DAILY #90 tabs 11/23/24 blood-glucose meter (Blood Glucose #1 ea 11/23/24 Monitoring kit) levalbuterol tartrate 45 2 inh inhalation Q6H PRN shortness 11/23/24 mcg/actuation aerosol inhaler of breath or wheezing 90 days #15 (Xopenex HFA) grams ciclopirox 0.77 % topical cream 1 applic topical BID fungal nails 12/27/24 6 months #90 grams lancets (Accu-Chek Softclix #100 ea 02/18/25 Lancets) aspirin 81 mg tablet,delayed 81 mg PO DAILY #30 tabs 04/12/25 release (Adult Aspirin Regimen) blood sugar diagnostic (Accu-Chek #50 ea 04/12/25 Guide test strips) levocetirizine 5 mg tablet 5 mg PO DAILY #30 tabs 04/13/25 ropinirole 0.25 mg tablet See Rx Instructions .Route 04/26/25 .COMPLEX #30 tabs benazepril 40 mg tablet See Rx Instructions .Route 05/23/25 .COMPLEX #90 tabs hydralazine 25 mg tablet 25 mg PO TID PRN SBP >180 #90 tabs 06/12/25 pantoprazole 40 mg tablet,delayed See Rx Instructions .Route 06/12/25 release .COMPLEX #90 tabs tizanidine 4 mg tablet See Rx Instructions .Route 06/13/25 .COMPLEX #30 tabs tramadol 50 mg tablet 100 mg (2 x 50 mg) PO Q8H PRN pain 06/13/25 #60 tabs blood-glucose sensor (Dexcom G7 #3 ea 07/05/25 Sensor device) duloxetine 20 mg capsule,delayed See Rx Instructions .Route 07/05/25 release .COMPLEX #180 caps meloxicam 15 mg tablet See Rx Instructions .Route 07/05/25 .COMPLEX #90 tabs rosuvastatin 40 mg tablet See Rx Instructions .Route 07/05/25 .COMPLEX #90 tabs benzonatate 100 mg capsule 100 mg PO Q6H PRN cough #30 caps 07/16/25 Allergies Allergy/AdvReac Type Severity Reaction Status Date / Time Sulfa (Sulfonamide Allergy Intermediate Unknown Verified 07/11/25 08:19 Antibiotics) allergy reaction [facility] <Wayne Mar DO - Last Filed: 07/16/25 23:19> [facility] Disclaimer: The information contained in this section may have been updated after the patient was seen, as this information can be updated by other users. Medical History Numbness and tingling Pulmonary embolism Renal artery stenosis Pulmonary emphysema Left renal mass Chest pain PAF (paroxysmal atrial fibrillation) Orgasm disorder Erectile dysfunction ever since prostate surgery in January of 2023 Sleep apnea History of gastroesophageal reflux (GERD) Atrial fibrillation CVA (cerebral vascular accident) Diverticulitis COVID-19 virus infection History of CVA (cerebrovascular accident) Encounter for pre-operative cardiovascular clearance Carotid artery stenosis HHD (hypertensive heart disease) CAD (coronary artery disease) History of CVA in adulthood Prostate enlargement Surgical History History of prostate surgery History of kidney surgery History of colonoscopy S/P carotid endarterectomy Hx laparoscopic cholecystectomy Family History Other CHF (congestive heart failure) Family history of internal cardiac defibrillator Family history of pacemaker Social History Smoking Status: Never smoker second hand exposure: No alcohol intake: never substance use type: denies use current occupational status: employed Travel in the last 8 weeks?: Inside the [place] household members: spouse housing: house 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 current occupational exposures/hazards: No caffeine: Yes Have you lived/traveled outside US in past 30 days?: No Contact w/someone who lives/traveled outside US past 30 days?: No Exposure to someone with infectious disease in past 14 days?: No Do you have a fever (greater than 100.4 F or 38 C)?: No Have you tested positive for COVID-19?: No Exposed to someone with COVID-19 in past 14 days?: No Do you have a sore throat?: No Do you have a cough?: Yes Do you have any weakness?: No Do you have any diarrhea?: No Are you experiencing any unusual bleeding?: No Do you have any muscle aches/pain?: No Do you have any abdominal pain?: No Are you experiencing loss of taste or smell?: No Other Medical History Have you received the Flu Vaccine for this season: No Have you received the Pneumonia Vaccine: No <Wayne Mar DO - Last Filed: 07/16/25 23:19> ROS Obtained: Yes Systems reviewed as appropriate & no additional complaints except as documented Physical Exam <Wayne Mar DO - Last Filed: 07/16/25 23:19> General General appearance: other (See MDM) Respiratory Respiratory exam: Present other (See MDM) Cardiovascular Cardiovascular exam: Present other (See MDM) Neurological Exam Neurological exam: Present other (See MDM) HEART Score <Wayne Mar DO - Last Filed: 07/16/25 23:19> HEART Score HEART Score assessment performed?: Yes History (anamnesis): Slightly suspicious ECG: Normal Age: 45-65 years Risk factors: 3 or more risk factors Troponin: </= normal limit HEART Score: 3 <Braeden Mtz MD - Last Filed: 07/17/25 01:59> HEART Score HEART Score: 3 Critical Care <Wayne Mar DO - Last Filed: 07/16/25 23:19> Critical Care Time Critical Care Time: No Medical Decision Making <Wayne Mar DO - Last Filed: 07/16/25 23:19> Medical Records Medical records reviewed: Yes I reviewed the patient's medical records. Abdirahman Inquiry Pt receiving controlled substance: No Abdirahman was queried for this patient: No Vital Signs Vital Signs: 07/16/25 22:37 07/16/25 23:00 07/16/25 23:15 Temperature 98.4 F Temperature Source Oral Pulse Rate 75 Pulse Rate [Right Radial] 83 Respiratory Rate 20 18 Blood Pressure 124/71 Blood Pressure [Right Arm] 129/78 Blood Pressure Mean 88 Blood Pressure Mean [Right Arm] 95 Blood Pressure Source [Right Arm] Automatic Cuff Blood Pressure Position [Right Arm] Sitting 02 Sat by Pulse Oximetry 98 96 Oxygen Delivery Method Room Air 07/16/25 23:30 07/17/25 00:00 07/17/25 00:00 Temperature Temperature Source Pulse Rate 68 Pulse Rate [Right Radial] Respiratory Rate 27 H Blood Pressure 147/71 H 133/71 Blood Pressure [Right Arm] Blood Pressure Mean 96 91 Blood Pressure Mean [Right Arm] Blood Pressure Source [Right Arm] Blood Pressure Position [Right Arm] 02 Sat by Pulse Oximetry 96 Oxygen Delivery Method 07/17/25 00:48 Temperature 98.2 F Temperature Source Oral Pulse Rate 81 Pulse Rate [Right Radial] Respiratory Rate 20 Blood Pressure 139/74 Blood Pressure [Right Arm] Blood Pressure Mean Blood Pressure Mean [Right Arm] Blood Pressure Source [Right Arm] Blood Pressure Position [Right Arm] 02 Sat by Pulse Oximetry Oxygen Delivery Method Room Air Lab Data Labs: Lab Results 07/16/25 22:38: WBC 6.8, RBC 4.99, Hgb 16.1, Hct 43.4, MCV 87.0, MCH 32.3 H, MCHC 37.1 H, RDW 12.0, Plt Count 160, MPV 9.9, Neut % (Auto) 50.1, Lymph % (Auto) 30.8, [place] % (Auto) 16.7 H, Eos % (Auto) 1.6, Baso % (Auto) 0.4, Neut # (Auto) 3.4, Lymph # (Auto) 2.1, [place] # (Auto) 1.1 H, Eos # (Auto) 0.1, Baso # (Auto) 0.0, Sodium 133 L, Potassium 3.9, Chloride 101, Carbon Dioxide 24, Anion Gap 11.9, BUN 13, Creatinine 1.30 H, Estimated Creat Clear 93, Estimated GFR 57 L, Est GFR ( Amer) 68, Glucose 188 H, Calcium 9.5, Total Bilirubin 1.1, AST 51, ALT 50, Alkaline Phosphatase 68, Total Creatine Kinase 68, Troponin I < 0.01, Total Protein 7.7, Albumin 4.7, Globulin 3.0, Albumin/Globulin Ratio 1.6, Lipase 137 07/16/25 23:00: SARS-CoV-2 (PCR) Detected A, Influenza Type A (PCR) Not detected, Influenza Type B (PCR) Not detected, RSV (PCR) Not detected, Rhinovirus (PCR) Not detected 07/16/25 22:38 07/16/25 22:38 Response Orders (Tests/Meds): ED MEDICATIONS Discontinued Medications Generic Name Dose Route Start Last Admin Trade Name Freq PRN Reason Stop Dose Admin Benzonatate 100 mg 07/16/25 23:45 07/16/25 23:54 Benzonatate 100mg Capsule PO 08/15/25 23:44 100 mg ONCE TAMMY Administration ORDERS Category Date Time Status CXR 2 view (NOT portable) [XR chest 2V] Stat Exams 07/16/25 22:47 Completed CBC w/Auto Diff [Complete Blood Count Auto Diff] Stat Lab 07/16/25 22:38 Completed CK [Creatine Kinase] Stat Lab 07/16/25 22:38 Completed CMP [Comprehensive Metabolic Panel] Stat Lab 07/16/25 22:38 Completed Lipase Stat Lab 07/16/25 22:38 Completed Mini Respiratory Panel Stat Lab 07/16/25 23:00 Completed Troponin I Stat Lab 07/16/25 22:38 Completed MDM Narrative Medical Decision Narrative: In summary this is a 60-year-old male patient who is presenting to the emergency department today for evaluation of bodyaches, chills, rhinorrhea, congestion, and progression of symptoms to development of cough with production of phlegm and chest pain. His comorbidities include hypertension, diabetes, coronary artery disease, and a history of clear-cell renal carcinoma that is currently in remission. On initial evaluation of the patient they were resting comfortably in no acute distress and ill-appearing but is not toxic. They are hemodynamically stable, saturating well room air, and are neurologically intact. On physical examination his heart lungs clear to station bilaterally. He has no tenderness to anterior chest wall. No tenderness to the abdomen. He has no lower extremity erythema or edema. Differential diagnosis includes COVID, flu, RSV, among others. Will work the patient up for pneumonia and we will rule out ACS/MO as the cause of his symptoms. Workup was initiated with hematologic labs as well as viral swabs, an EKG, and a chest x-ray. EKG was personally interpreted by me and demonstrates normal sinus rhythm at a rate of 81 bpm, right axis, no VA prolongation, narrow QRS, no QTc prolongation. There are T wave inversions in lead III and aVF. At the time of shift change chest x-ray and labs are pending. This case was handed off to the oncoming provider who will follow-up on these and disposition the patient properly <Braeden Mtz MD - Last Filed: 07/17/25 01:59> Vital Signs Vital Signs: 07/16/25 22:37 07/16/25 23:00 07/16/25 23:15 Temperature 98.4 F Temperature Source Oral Pulse Rate 75 Pulse Rate [Right Radial] 83 Respiratory Rate 20 18 Blood Pressure 124/71 Blood Pressure [Right Arm] 129/78 Blood Pressure Mean 88 Blood Pressure Mean [Right Arm] 95 Blood Pressure Source [Right Arm] Automatic Cuff Blood Pressure Position [Right Arm] Sitting 02 Sat by Pulse Oximetry 98 96 Oxygen Delivery Method Room Air 07/16/25 23:30 07/17/25 00:00 07/17/25 00:00 Temperature Temperature Source Pulse Rate 68 Pulse Rate [Right Radial] Respiratory Rate 27 H Blood Pressure 147/71 H 133/71 Blood Pressure [Right Arm] Blood Pressure Mean 96 91 Blood Pressure Mean [Right Arm] Blood Pressure Source [Right Arm] Blood Pressure Position [Right Arm] 02 Sat by Pulse Oximetry 96 Oxygen Delivery Method 07/17/25 00:48 Temperature 98.2 F Temperature Source Oral Pulse Rate 81 Pulse Rate [Right Radial] Respiratory Rate 20 Blood Pressure 139/74 Blood Pressure [Right Arm] Blood Pressure Mean Blood Pressure Mean [Right Arm] Blood Pressure Source [Right Arm] Blood Pressure Position [Right Arm] 02 Sat by Pulse Oximetry Oxygen Delivery Method Room Air Lab Data Labs: Lab Results 07/16/25 22:38: WBC 6.8, RBC 4.99, Hgb 16.1, Hct 43.4, MCV 87.0, MCH 32.3 H, MCHC 37.1 H, RDW 12.0, Plt Count 160, MPV 9.9, Neut % (Auto) 50.1, Lymph % (Auto) 30.8, [place] % (Auto) 16.7 H, Eos % (Auto) 1.6, Baso % (Auto) 0.4, Neut # (Auto) 3.4, Lymph # (Auto) 2.1, [place] # (Auto) 1.1 H, Eos # (Auto) 0.1, Baso # (Auto) 0.0, Sodium 133 L, Potassium 3.9, Chloride 101, Carbon Dioxide 24, Anion Gap 11.9, BUN 13, Creatinine 1.30 H, Estimated Creat Clear 93, Estimated GFR 57 L, Est GFR ( Amer) 68, Glucose 188 H, Calcium 9.5, Total Bilirubin 1.1, AST 51, ALT 50, Alkaline Phosphatase 68, Total Creatine Kinase 68, Troponin I < 0.01, Total Protein 7.7, Albumin 4.7, Globulin 3.0, Albumin/Globulin Ratio 1.6, Lipase 137 07/16/25 23:00: SARS-CoV-2 (PCR) Detected A, Influenza Type A (PCR) Not detected, Influenza Type B (PCR) Not detected, RSV (PCR) Not detected, Rhinovirus (PCR) Not detected Response Orders (Tests/Meds): ED MEDICATIONS Discontinued Medications Generic Name Dose Route Start Last Admin Trade Name Freq PRN Reason Stop Dose Admin Benzonatate 100 mg 07/16/25 23:45 07/16/25 23:54 Benzonatate 100mg Capsule PO 08/15/25 23:44 100 mg ONCE TAMMY Administration ORDERS Category Date Time Status CXR 2 view (NOT portable) [XR chest 2V] Stat Exams 07/16/25 22:47 Completed CBC w/Auto Diff [Complete Blood Count Auto Diff] Stat Lab 07/16/25 22:38 Completed CK [Creatine Kinase] Stat Lab 07/16/25 22:38 Completed CMP [Comprehensive Metabolic Panel] Stat Lab 07/16/25 22:38 Completed Lipase Stat Lab 07/16/25 22:38 Completed Mini Respiratory Panel Stat Lab 07/16/25 23:00 Completed Troponin I Stat Lab 07/16/25 22:38 Completed MDM Narrative Medical Decision Narrative: In summary this is a 60-year-old male patient who is presenting to the emergency department today for evaluation of bodyaches, chills, rhinorrhea, congestion, and progression of symptoms to development of cough with production of phlegm and chest pain. His comorbidities include hypertension, diabetes, coronary artery disease, and a history of clear-cell renal carcinoma that is currently in remission. On initial evaluation of the patient they were resting comfortably in no acute distress and ill-appearing but is not toxic. They are hemodynamically stable, saturating well room air, and are neurologically intact. On physical examination his heart lungs clear to station bilaterally. He has no tenderness to anterior chest wall. No tenderness to the abdomen. He has no lower extremity erythema or edema. Differential diagnosis includes COVID, flu, RSV, among others. Will work the patient up for pneumonia and we will rule out ACS/MO as the cause of his symptoms. Workup was initiated with hematologic labs as well as viral swabs, an EKG, and a chest x-ray. EKG was personally interpreted by me and demonstrates normal sinus rhythm at a rate of 81 bpm, right axis, no VA prolongation, narrow QRS, no QTc prolongation. There are T wave inversions in lead III and aVF. At the time of shift change chest x-ray and labs are pending. This case was handed off to the oncoming provider who will follow-up on these and disposition the patient properly. Bibi GUARDADO: I assumed care of the patient at the time of handoff from the prior provider. On reassessment patient олег hemodynamically stable. Radiograph was independently turbid by me and showed no evidence of opacity or pneumonia. Labs were independently turbid by me, negative initial troponin, no significant electrolyte derangement, renal function essentially at baseline. We considered obtaining a second troponin but given patient's symptoms are all infectious (as well as their duration), I do not think it is necessary at this time. After patient was discharged his viral panel returned positive for COVID. We called and communicated that to the patient. He was discharged with a prescription for Tessalon Perles for cough.
[2025-07-16 23:00] VITALS: BP 124/71
[2025-07-16 23:02] LABS: Influenza A, PCR Not Detected (NotDetected); Influenza B, PCR Not Detected (NotDetected)
[2025-07-16 23:06] LABS: Alanine Aminotransferase 50 U/L (12-78); Albumin Level 4.7 g/dl (3.5-5.0); Albumin/Globulin Ratio 1.6 (1.1-1.8); Alkaline Phosphatase 68 U/L (38-126); Anion Gap 11.9 mEq/L (5-15); Aspartate Amino Transferase 51 U/L (17-59); Bilirubin,Total 1.1 mg/dl (0.2-1.3); Blood Urea Nitrogen 13 mg/dl (9-20); Calcium 9.5 mg/dl (8.4-10.2); Carbon Dioxide 24 mmol/L (22.0-30.0); Chloride 101 mmol/L (98-107); Creatine Kinase 68 U/L (55-170); Creatinine Clearance Estimated 93 mL/min (50-200); Creatinine,Serum 1.30 mg/dl (0.66-1.25); Estimated Glomerular Filt Rate 57 ml/min (>60); GFR (African American) 68 ML/MIN (>60); Globulin 3.0 g/dL (1.3-3.2); Glucose 188 mg/dl (74-100); Lipase 137 U/L (23-300); Potassium 3.9 mmoL/L (3.5-5.1); Sodium 133 mmol/L (136-145); Total Protein,Serum 7.7 g/dl (6.3-8.2)
--- OUTSIDE RECORDS SUMMARY | 2025-07-16 23:11 | XMS_ITS | Clinical Summary ---
Author Organization [facility] Address [address] [place] [address] Phone Care Team Providers Care Pattern Maker Name Role Phone Pamela GUARDADO, Lauren Ventura [ ] Conditions or Problems Problem Name Problem Code Onset Date Status Entry Date Provider Comment Standard Description Annotate CHEST PAIN, HX OF; POST OP Z86.79 (ICD-10-CM ) 09/27 Active 09/29 Lauren Santiago MD Personal history of other diseases of the circulatory system OBESITY 990113888 (SNOMED CT) 09/27 Active 09/27 Loni Catalan CHRONIC OSTEOMYELITI S RT FOOT M86.679 (ICD-10-CM ) 09/25 Active 09/25 Cinthya Cavanaugh Other chronic osteomyelitis, unspecified ankle and foot HYPERTENSION , CONTROLLED [id number] (SNOMED CT) 09/17 Resolved 09/17 Dimple Duque Hypertensive disorder ACTIVITIES INVOLVING BUILDING AND CONSTRUCTION NAIL IN FOOT Y93.H3 (ICD-10-CM ) 09/25 Active 09/25 Dimple Duque Activity, building and construction CHRONIC OSTEOMYELITI S, FOOT 543173233 (SNOMED CT) 09/25 Correction 09/25 Dimple Duque Chronic osteomyelitis of foot ACUTE OSTEOMYELITI S: RT FOOT/TOE M86.179 (ICD-10-CM ) 09/14 Inactive 09/14 Dimple Duque Other acute osteomyelitis, unspecified ankle and foot NEPHROLITHIA SIS, URIC ACID 683194041 (SNOMED CT) 09/17 Active 09/21 Lauren Santiago MD Uric acid renal calculus INJURY OTHER&UNSPEC IFIED FOOT/ RIGHT FOOT PUNCTURE 959.7 (ICD-9-CM) 09/17 Active 09/21 Lauren Santiago MD Other and unspecified injury to knee, leg, ankle, and foot HYPERTENSION , CONTROLLED 34550773 (SNOMED CT) 09/17 Removed 09/17 Lauren Santiago MD Hypertensive disorder ACUTE OSTEOMYELITI S: RT FOOT/TOE M86.179 (ICD-10-CM ) 09/14 Removed 09/14 Dee Pires Other acute osteomyelitis, unspecified ankle and foot Medications Medication Instructions Start Date Stop Date Generic Name [facility] Provider ASPIRIN 81 MG TBEC ASPIRIN [id number] Loni Roldan PERCOCET TABS 09/27 OXYCODONE-ACETAMI NOPHEN TABS [id number] Loni Roldan ADOXA 100 MG ORAL TABLET twice daily for 10 days DOXYCYCLINE MONOHYDRATE [id number] Loni Roldan LEVAQUIN 750 MG ORAL TABLET 09/27 LEVOFLOXACIN 83836327072 Loni Roladn LEVOFLOXACIN 250 MG TABS 09/26 LEVOFLOXACIN [id number] Moy Larson LEVAQUIN 750 MG ORAL TABLET 0 11/22 LEVOFLOXACIN [id number] Moy Larson PERCOCET TABS 0 11/22 OXYCODONE-ACETAMI NOPHEN TABS [id number] Moy Larson LORTAB TABLET HYDROCODONE-ACETA MINOPHEN TABS 56365593665 Moy Larson PHENERGAN SOLN PROMETHAZINE HCL SOLN [id number] Moy Larson TRIAMCINOLONE ACETONIDE 0.5 % CREA TRIAMCINOLONE ACETONIDE [id number] Lauren Santiago MD CYCLOBENZAPRINE HCL TABLET CYCLOBENZAPRINE HCL TABS [id number] Lauren Santiago MD LEVOFLOXACIN 250 MG TABS 09/26 LEVOFLOXACIN [id number] Lauren Santiago MD BENAZEPRIL HCL 20 MG TABS BENAZEPRIL HCL [id number] Heather G ALLOPURINOL 300 MG TABS ALLOPURINOL [id number] Heather G Medications Administered No information available. [...] Procedures Code Procedure Name Date Entry Date CPT-76626 CMP CPT-04560 C- reactive protein CPT-05665 CBC with Differential 09/17 Vital Signs Date [...]
--- OUTSIDE RECORDS SUMMARY | 2025-07-16 23:11 | XMS_ITS | Clinical Summary ---
Author Organization [facility] Address [address] [place] [address] Care Team Providers Care Pharmacy Tech Name Role Phone Unavailable Primary Care Provider Unavailabl e Allergies Active Allergy Reactions Criticality Noted Date Comments Nzudktb-Wzb-Wsj Reductase Inhibitors Other (See Comments) 11/02/2022 Cramping [...] of 2) 02/15/2016 INFLUENZA VACCINE (#1) 2025 CT Colonography Completed HEP A VACCINE Aged Out No longer elig ible based on patient's age to complete this topic HIB VACCINE Aged Out No longer eligi ble based on patient's age to complete this topic ROTOVIRUS VACCINE Aged Out No longer eligible based on patient's age to complete this topic Insurance [employer] [facility]
--- OUTSIDE RECORDS SUMMARY | 2025-07-16 23:12 | XMS_ITS | Data Portability ---
[facility] Address [address] [place] [address] Assessment Encounter Date Assessment Date Assessment LastModified by Organization Details LastModified Time 03/30/2024 03/30/2024 Plavix may be held for 5 days before epidural injection. [email or web address] Not available 04/17/2024 19:38:18 Plan of Treatment Reminders Order Date Submit Date Provider Last Modified By Organization Details Last Modified Time Details Appointments None recorded. Lab HbA1c (hemoglobin A1c), blood 2023 024 [email or web address] [facility], [address] [place] [address], [phone], 4 09:22:04 HbA1c (hemoglobin A1c), blood 2023 024 [facility], [address], [place], [address], 4 06:11:34 TSH, serum or plasma 2023 024 [email or web address], [address], [place], [address], 4 11:00:32 lipid panel, serum 2023 024 [facility], [address], [place], [address], 4 05:31:15 TSH, serum or plasma 2023 024 [place] [facility], [address], [place], [address], 4 05:31:17 CMP, serum or plasma 2023 024 [facility], [address], [place], [address], 4 05:31:15 urinalysis complete, reflex culture 2023 024 [employer] [place] [facility], [address], [place], [address], 4 05:31:16 HbA1c (hemoglobin A1c), blood [address] [facility], [address] [place] [address], [phone], 3 09:30:36 Referral None recorded. Procedures None recorded. Surgeries None recorded. Imaging XR, ribs, unilateral 2023 024 PA[facility] Not available 4 11:27:05 XR, shoulder, 2 or more view 2023 024 [facility] Not available 4 11:26:05 XR, hip, unilateral, 2 or 3 view 2023 024 [facility] Not available 4 11:25:05 Medication Orders allopurinol 300 mg tablet 2023 024 [facility] [address] [place], [address], 4 14:17:16 clopidogrel 75 mg tablet 2023 024 [facility] [address] [place], [address], 4 14:17:19 rosuvastati n 40 mg tablet 2023 024 [facility] [address], [address] [place], [address], 4 14:17:18 amlodipine 2.5 mg tablet 2023 024 [facility] [address] [place], [address], 4 14:17:19 pantoprazol e 40 mg tablet,rodolfo yed release 2023 024 [facility] [address] [place], [address], 4 14:17:20 benazepril 40 mg tablet 2023 024 [facility] [address] [place], [address], 4 14:17:13 allopurinol 300 mg tablet 2023 024 [facility] [address] [place], [address], 4 08:50:54 clopidogrel 75 mg tablet 2023 024 [facility] [address] [place], [address], 4 08:50:53 rosuvastati n 40 mg tablet 2023 024 [facility] [address], [address] [place], [address], 4 08:50:53 pantoprazol e 40 mg tablet,rodolfo yed release 2023 024 [facility] [address] [place], [address], 4 08:50:54 benazepril 40 mg tablet 2023 024 [facility] [address], [address] [place], [address], 08:50:52 Patient TargetsNo targets recorded. Patient InstructionsNo instructions recorded. Reason for Referral None Reported. Results Created Date Observation Date Name Description Value Unit Range Abnormal Flag Note LastModifiedBy Organization Detail LastModifiedTime 04/10/2004/10/2023 HbA1c (hemo globi n A1c), blood HbA1c 5.5 Not Available [address], [address], 04/10/2023 09:13:57 09/23/1909/24/2023 LIPID PANEL , STAND ALEJANDRA cholesterol, total 121 mg/dL <200 normal Not Available [facility] [address] [place], [address], 09/24/2023 07:12:51 09/23/19 24 09/24/2023 LIPID PANEL , STAND ALEJANDRA HDL cholesterol 32 mg/dL > or = 40 low Not Available [facility] [address] [place], [address], 09/24/2023 07:12:51 09/23/19 24 09/24/2023 LIPID PANEL , STAND ALEJANDRA triglyceride s 207 mg/dL <150 high If a non-f astin g speci men was colle cted, consi lucretia repea t trigl yceri de testi ng on a fasti ng speci men if clini debbie indic ated. Abhi kapoor et al. J. of Clin. Lipid ol. 2015; 9:129 -169. Not Available [facility] [address] [place], [address], 09/24/2023 07:12:51 09/23/19 24 09/24/2023 LIPID PANEL , STAND ALEJANDRA LDL-choleste rol 62 mg/dL _(priya c) normal Refer ence range : <100 Ebonie able range <100 mg/dL for prima ry preve ntion ; <70 mg/dL for patie nts with CHD or diabe tic patie nts with > or = 2 CHD risk facto rs. LDL-C is now calcu lated using the Maggi n-Hop kins calcu dawson n, which is a valid ated novel metho d ghassani ding misti r accur acy than the Fried gerardo equat ion in the estim ation of LDL-C . Maggi chairez SS et al. ANGELLA. 2013; 310(1 9): 2061- 206 (http ://ed ucati on.Qu estDi Sunfun Info. com/f aq/FA Q164) Not Available [facility] [address] [facility], [place], [address], 09/24/2023 07:12:51 09/23/19 24 09/24/2023 LIPID PANEL , STAND ALEJANDRA chol/HDLC ratio 3.8 (calc ) <5.0 normal Not Available [facility] [address], [place], [address], 09/24/2023 07:12:51 09/23/1909/24/2023 LIPID PANEL , STAND ALEJANDRA non HDL cholesterol 89 mg/dL _(priya c) <130 normal For patie nts with diabe maritza plus 1 major ASCVD risk facto r, treat ing to a non-H DL-C goal of <100 mg/dL (LDL- C of <70 mg/dL ) is consi dered a thera peuti c optio n. Not Available [facility] [address], [place], [address], 09/24/2023 07:12:51 09/23/1909/24/2023 COMPR EHENS PETER METAB OLIC PANEL glucose 131 mg/dL 65-99 high Fasti ng refer ence inter rocío For someo ne witho ut known diabe maritza, a gluco se value >125 mg/dL indic ates that they may have diabe maritza and this shoul d be confi rmed with a follo w-up test. Not Available [facility] [address] [place], [address], 09/24/2023 07:12:52 09/23/19 24 09/24/2023 COMPR EHENS PETER METAB OLIC PANEL urea nitrogen (BUN) 17 mg/dL 7-25 normal Not Available [facility] [address] [place], [address], 09/24/2023 07:12:52 09/23/19 24 09/24/2023 COMPR EHENS PETER METAB OLIC PANEL creatinine 1.32 mg/dL 0.70-1 .30 high Not Available [facility] [address] [place], [address], 09/24/2023 07:12:52 09/23/19 24 09/24/2023 COMPR EHENS PETER METAB OLIC PANEL eGFR 63 mL/mi n/1.7 3m2 > or = 60 normal Not Available [facility] [address] [place], [address], 09/24/2023 07:12:52 09/23/19 24 09/24/2023 COMPR EHENS PETER METAB OLIC PANEL BUN/creatini ne ratio 13 (calc ) 6-22 normal Not Available [facility] [address] [place], [address], 09/24/2023 07:12:52 09/23/19 24 09/24/2023 COMPR EHENS PETER METAB OLIC PANEL sodium 141 mmol/ L 135-14 6 normal Not Available [facility] [address] [place], [address], 09/24/2023 07:12:52 09/23/19 24 09/24/2023 COMPR EHENS PETER METAB OLIC PANEL potassium 4.6 mmol/ L 3.5-5. 3 normal Not Available [facility] [address] [place], [address], 09/24/2023 07:12:52 09/23/19 24 09/24/2023 COMPR EHENS PETER METAB OLIC PANEL chloride 105 mmol/ L 98-110 normal Not Available [facility] [address] [place], [address], 09/24/2023 07:12:52 09/23/19 24 09/24/2023 COMPR EHENS PETER METAB OLIC PANEL carbon dioxide 29 mmol/ L 20-32 normal Not Available [facility] [address] [place], [address], 09/24/2023 07:12:52 09/23/19 24 09/24/2023 COMPR EHENS PETER METAB OLIC PANEL calcium 9.1 mg/dL 8.6-10 .3 normal Not Available [facility] [address] [place], [address], 09/24/2023 07:12:52 09/23/19 24 09/24/2023 COMPR EHENS PETER METAB OLIC PANEL protein, total 7.1 g/dL 6.1-8. 1 normal Not Available [facility] [address] [place], [address], 09/24/2023 07:12:52 09/23/19 24 09/24/2023 COMPR EHENS PETER METAB OLIC PANEL albumin 4.4 g/dL 3.6-5. 1 normal Not Available [facility] [address] [facility] [facility] [place], [address], 09/24/2023 07:12:52 09/23/19 24 09/24/2023 COMPR EHENS PETER METAB OLIC PANEL globulin 2.7 g/dL_ (calc ) 1.9-3. 7 normal Not Available [facility] [address] [facility], [place], [address], 09/24/2023 07:12:52 09/23/19 24 09/24/2023 COMPR EHENS PETER METAB OLIC PANEL albumin/glob ulin ratio 1.6 (calc ) 1.0-2. 5 normal Not Available [facility] [address] [place], [address], 09/24/2023 07:12:52 09/23/19 24 09/24/2023 COMPR EHENS PETER METAB OLIC PANEL bilirubin, total 1.0 mg/dL 0.2-1. 2 normal Not Available [facility] [address] [place], [address], 09/24/2023 07:12:52 09/23/19 24 09/24/2023 COMPR EHENS PETER METAB OLIC PANEL alkaline phosphatase 72 U/L 35-144 normal Not Available [facility] [address] [place] [place], [address], 09/24/2023 07:12:52 09/23/19 24 09/24/2023 COMPR EHENS PETER METAB OLIC PANEL AST 23 U/L 10-35 normal Not Available [facility] [address] [place], [address], 09/24/2023 07:12:52 09/23/19 24 09/24/2023 COMPR EHENS PETER METAB OLIC PANEL ALT 21 U/L 9-46 normal Not Available [facility] [address] [place], [address], 09/24/2023 07:12:52 09/23/19 24 09/24/2023 URINA LYSIS , COMPL ETE W/REF JASVIR TO CULTU RE color YELLOW yellow normal Not Available [facility] [address] [place], [address], 09/24/2023 05:31:16 09/23/19 24 09/24/2023 URINA LYSIS , COMPL ETE W/REF JASVIR TO CULTU RE appearance CLEAR clear normal Not Available [facility] [address] [place] [place], [address], 09/24/2023 05:31:16 09/23/19 24 09/24/2023 URINA LYSIS , COMPL ETE W/REF JASVIR TO CULTU RE specific gravity 1.014 1.001- 1.035 normal Not Available [facility] [address] [place], [address], 09/24/2023 05:31:16 09/23/19 24 09/24/2023 URINA LYSIS , COMPL ETE W/REF JASVIR TO CULTU RE pH < OR = 5.0 5.0-8. 0 normal Not Available [facility] [address] [place] [place], [address], 09/24/2023 05:31:16 09/23/19 24 09/24/2023 URINA LYSIS , COMPL ETE W/REF JASVIR TO CULTU RE glucose NEGATI VE negati ve normal Not Available [facility] [address] [place], [address], 09/24/2023 05:31:16 09/23/19 24 09/24/2023 URINA LYSIS , COMPL ETE W/REF JASVIR TO CULTU RE bilirubin NEGATI VE negati ve normal Not Available [facility] [address] [place], [address], 09/24/2023 05:31:16 09/23/19 24 09/24/2023 URINA LYSIS , COMPL ETE W/REF JASVIR TO CULTU RE ketones NEGATI VE negati ve normal Not Available [facility] [address] [place], [address], 09/24/2023 05:31:16 09/23/19 24 09/24/2023 URINA LYSIS , COMPL ETE W/REF JASVIR TO CULTU RE occult blood NEGATI VE negati ve normal Not Available [facility] [address] [place], [address], 09/24/2023 05:31:16 09/23/19 24 09/24/2023 URINA LYSIS , COMPL ETE W/REF JASVIR TO CULTU RE protein NEGATI VE negati ve normal Not Available [facility] [address] [place], [address], 09/24/2023 05:31:16 09/23/19 24 09/24/2023 URINA LYSIS , COMPL ETE W/REF JASVIR TO CULTU RE nitrite NEGATI VE negati ve normal Not Available [facility] [address] [place], [address], 09/24/2023 05:31:16 09/23/19 24 09/24/2023 URINA LYSIS , COMPL ETE W/REF JASVIR TO CULTU RE leukocyte esterase 2+ negati ve abnormal Not Available [facility] [address] [place], [address], 09/24/2023 05:31:16 09/23/19 24 09/24/2023 URINA LYSIS , COMPL ETE W/REF JASVIR TO CULTU RE WBC > OR = 60 /hpf < or = 5 abnormal Not Available [facility] [address] [place], [address], 09/24/2023 05:31:16 09/23/19 24 09/24/2023 URINA LYSIS , COMPL ETE W/REF JASVIR TO CULTU RE RBC 0-2 /hpf < or = 2 normal Not Available [facility] [address] [place], [address], 09/24/2023 05:31:16 09/23/19 24 09/24/2023 URINA LYSIS , COMPL ETE W/REF JASVIR TO CULTU RE squamous epithelial cells NONE SEEN /hpf < or = 5 normal Not Available [facility] [address] [place], [address], 09/24/2023 05:31:16 09/23/19 24 09/24/2023 URINA LYSIS , COMPL ETE W/REF JASVIR TO CULTU RE bacteria NONE SEEN /hpf none seen normal Not Available [facility] [address] [place], [address], 09/24/2023 05:31:16 09/23/19 24 09/24/2023 URINA LYSIS , COMPL ETE W/REF JASVIR TO CULTU RE hyaline cast NONE SEEN /lpf none seen normal Not Available [facility] [address] [place], [address], 09/24/2023 05:31:16 09/23/19 24 09/24/2023 URINA LYSIS , COMPL ETE W/REF JASVIR TO CULTU RE note This urine was rony zed for the prese nce of WBC, RBC, bacte jaida, casts , and other forme d eleme nts. Only those eleme nts seen were repor tavia. Not Available [facility] [address] [place], [address], 09/24/2023 05:31:16 09/23/19 24 09/24/2023 REFLE XIVE URINE CULTU RE reflexive urine culture CULTU RE INDIC ATED - RESUL TS TO FOLLO W Not Available [facility] [address] [place], [address], 09/24/2023 05:31:17 09/23/19 24 09/24/2023 TSH W/REF JASVIR TO FT4 TSH w/reflex to FT4 3.10 mIU/L 0.40-4 .50 normal Not Available [facility] [address] [place], [address], 09/24/2023 05:31:17 09/23/19 24 09/24/2023 CULTU RE, URINE , ROUTI NE culture SEE NOTE Not Available [facility] [address] [facility], [place], [address], 09/24/2023 05:31:18 09/23/19 24 09/25/2023 CULTU RE, URINE , ROUTI NE culture, urine, routine SEE NOTE CULTU RE, URINE , ROUTI NE Micro Numbe r: [id number] Test Statu s: Final Speci men Sourc e: Urine Speci men Quali ty: Adequ ate Resul t: Less than 10,00 0 CFU/m L of singl e Gram posit peter organ ism isola tavia. No furth er testi ng will be perfo rmed. If clini debbie indic ated, recol lecti on using a metho d to minim ize conta minat ion, with promp t trans lizzette to Urine Cultu re Trans port Tube, is recom alvaro d. Not Available [facility] [address] [facility], [place], [address], 09/25/2023 12:34:15 03/30/20 24 03/31/2024 TSH+F REE T4 TSH 1.320 uIU/m L 0.450- 4.500 normal Not Available [facility] ([facility]) [address] [place], [address], 03/31/2024 06:11:32 03/30/20 24 03/31/2024 TSH+F REE T4 T4,free(dire ct) 1.32 NG/dL 0.82-1 .77 normal Not Available [facility] ([facility]) [address] [facility], [place], [address], 03/31/2024 06:11:32 03/30/20 24 03/31/2024 CBC WITH DIFFE RENTI AL/PL ATELE T WBC 10.1 x10e3 /uL 3.4-10 .8 normal Not Available [facility] ([facility]) [address] [place], [address], 03/31/2024 06:11:32 03/30/20 24 03/31/2024 CBC WITH DIFFE RENTI AL/PL ATELE T RBC 4.55 x10e6 /uL 4.14-5 .80 normal Not Available [facility] ([facility]) [address] [facility], [place], [address], 03/31/2024 06:11:32 03/30/20 24 03/31/2024 CBC WITH DIFFE RENTI AL/PL ATELE T hemoglobin 14.3 g/dL 13.0-1 7.7 normal Not Available [facility] ([facility]) [address] [facility], [place], [address], 03/31/2024 06:11:32 03/30/20 24 03/31/2024 CBC WITH DIFFE RENTI AL/PL ATELE T hematocrit 42.5 % 37.5-5 1.0 normal Not Available [facility] ([facility]) [address] [place], [address], 03/31/2024 06:11:32 03/30/20 24 03/31/2024 CBC WITH DIFFE RENTI AL/PL ATELE T MCV 93 fL 79-97 normal Not Available [facility] ([facility]) [address] [place], [address], 03/31/2024 06:11:32 03/30/20 24 03/31/2024 CBC WITH DIFFE RENTI AL/PL ATELE T MCH 31.4 pg 26.6-3 3.0 normal Not Available [facility] ([facility]) [address] [place], [address], 03/31/2024 06:11:32 03/30/20 24 03/31/2024 CBC WITH DIFFE RENTI AL/PL ATELE T MCHC 33.6 g/dL 31.5-3 5.7 normal Not Available [facility] ([facility]) [address] [facility], [place], [address], 03/31/2024 06:11:32 03/30/20 24 03/31/2024 CBC WITH DIFFE RENTI AL/PL ATELE T RDW 13.5 % 11.6-1 5.4 Not Available [facility] ([facility]) [address] [facility], [place], [address], 03/31/2024 06:11:32 03/30/20 24 03/31/2024 CBC WITH DIFFE RENTI AL/PL ATELE T platelets 221 x10e3 /uL 150-45 0 normal Not Available [facility] ([facility]) [address] [facility], [place], [address], 03/31/2024 06:11:32 03/30/20 24 03/31/2024 CBC WITH DIFFE RENTI AL/PL ATELE T neutrophils 66 % not estab. normal Not Available [facility] ([facility]) [address] [facility], [place], [address], 03/31/2024 06:11:32 03/30/20 24 03/31/2024 CBC WITH DIFFE RENTI AL/PL ATELE T lymphs 21 % not estab. normal Not Available [facility] ([facility]) [address] [facility], [place], [address], 03/31/2024 06:11:32 03/30/20 24 03/31/2024 CBC WITH DIFFE RENTI AL/PL ATELE T monocytes 7 % not estab. normal Not Available [facility] ([facility]) [address] [facility], [place], [address], 03/31/2024 06:11:32 03/30/20 24 03/31/2024 CBC WITH DIFFE RENTI AL/PL ATELE T eos 4 % not estab. normal Not Available [facility] ([facility]) [address] [facility], [place], [address], 03/31/2024 06:11:32 03/30/20 24 03/31/2024 CBC WITH DIFFE RENTI AL/PL ATELE T basos 1 % not estab. normal Not Available [facility] ([facility]) [address] [facility], [place], [address], 03/31/2024 06:11:32 03/30/20 24 03/31/2024 CBC WITH DIFFE RENTI AL/PL ATELE T immature cells TONSORIAL ARTIST Not Available [facility] ([facility]) [address] [facility], [place], [address], 03/31/2024 06:11:32 03/30/20 24 03/31/2024 CBC WITH DIFFE RENTI AL/PL ATELE T neutrophils (absolute) 6.7 x10e3 /uL 1.4-7. 0 normal Not Available [facility] ([facility]) [address] [facility], [place], [address], 03/31/2024 06:11:32 03/30/20 24 03/31/2024 CBC WITH DIFFE RENTI AL/PL ATELE T lymphs (absolute) 2.2 x10e3 /uL 0.7-3. 1 normal Not Available [facility] ([facility]) [address] [place], [address], 03/31/2024 06:11:32 03/30/20 24 03/31/2024 CBC WITH DIFFE RENTI AL/PL ATELE T monocytes(ab solute) 0.7 x10e3 /uL 0.1-0. 9 normal Not Available [facility] ([facility]) [address] [place], [address], 03/31/2024 06:11:32 03/30/20 24 03/31/2024 CBC WITH DIFFE RENTI AL/PL ATELE T eos (absolute) 0.4 x10e3 /uL 0.0-0. 4 normal Not Available [facility] ([facility]) [address] [facility], [place], [address], 03/31/2024 06:11:32 03/30/20 24 03/31/2024 CBC WITH DIFFE RENTI AL/PL ATELE T baso (absolute) 0.1 x10e3 /uL 0.0-0. 2 normal Not Available [facility] ([facility]) [address] [facility], [place], [address], 03/31/2024 06:11:32 03/30/20 24 03/31/2024 CBC WITH DIFFE RENTI AL/PL ATELE T immature granulocytes 1 % not estab. Not Available [facility] ([facility]) [address] [facility], [place], [address], 03/31/2024 06:11:32 03/30/20 24 03/31/2024 CBC WITH DIFFE RENTI AL/PL ATELE T immature grans (abs) 0.1 x10e3 /uL 0.0-0. 1 Not Available [facility] ([facility]) [address] [facility], [place], [address], 03/31/2024 06:11:32 03/30/20 24 03/31/2024 CBC WITH DIFFE RENTI AL/PL ATELE T NRBC TONSORIAL ARTIST Not Available [facility] ([facility]) [address] [facility], [place], [address], 03/31/2024 06:11:32 03/30/20 24 03/31/2024 CBC WITH DIFFE RENTI AL/PL ATELE T hematology comments: TONSORIAL ARTIST Not Available [facility] ([facility]) [address] [facility], [place], [address], 03/31/2024 06:11:32 03/30/20 24 03/31/2024 COMP. METAB OLIC PANEL (14) glucose 126 mg/dL 70-99 above high normal Not Available [facility] ([facility]) [address] [place], [address], 03/31/2024 06:11:33 03/30/20 24 03/31/2024 COMP. METAB OLIC PANEL (14) BUN 17 mg/dL 6-24 normal Not Available [facility] ([facility]) [address] [facility] [place] [place], [address], 03/31/2024 06:11:33 03/30/20 24 03/31/2024 COMP. METAB OLIC PANEL (14) creatinine 1.19 mg/dL 0.76-1 .27 normal Not Available [facility] ([facility]) [address] [facility] [place], [address], 03/31/2024 06:11:33 03/30/20 24 03/31/2024 COMP. METAB OLIC PANEL (14) eGFR 71 mL/mi n/1.7 3 >59 normal Not Available [facility] ([facility]) [address] [facility], [place], [address], 03/31/2024 06:11:33 03/30/20 24 03/31/2024 COMP. METAB OLIC PANEL (14) BUN/creatini ne ratio 14 9-20 normal Not Available [facility] ([facility]) [address] [facility] [place], [address], 03/31/2024 06:11:33 03/30/20 24 03/31/2024 COMP. METAB OLIC PANEL (14) sodium 141 mmol/ L 134-14 4 normal Not Available [facility] ([facility]) [address] [facility] [place], [address], 03/31/2024 06:11:33 03/30/20 24 03/31/2024 COMP. METAB OLIC PANEL (14) potassium 4.1 mmol/ L 3.5-5. 2 normal Not Available [facility] ([facility]) [address] [facility] [place], [address], 03/31/2024 06:11:33 03/30/20 24 03/31/2024 COMP. METAB OLIC PANEL (14) chloride 104 mmol/ L 96-106 normal Not Available [facility] ([facility]) [address] [place], [address], 03/31/2024 06:11:33 03/30/20 24 03/31/2024 COMP. METAB OLIC PANEL (14) carbon dioxide, total 22 mmol/ L 20-29 normal Not Available [facility] ([facility]) [address] [place], [address], 03/31/2024 06:11:33 03/30/20 24 03/31/2024 COMP. METAB OLIC PANEL (14) calcium 9.2 mg/dL 8.7-10 .2 normal Not Available [facility] ([facility]) [address] [place], [address], 03/31/2024 06:11:33 03/30/20 24 03/31/2024 COMP. METAB OLIC PANEL (14) protein, total 6.7 g/dL 6.0-8. 5 normal Not Available [facility] ([facility]) [address] [place], [address], 03/31/2024 06:11:33 03/30/20 24 03/31/2024 COMP. METAB OLIC PANEL (14) albumin 4.1 g/dL 3.8-4. 9 normal Not Available [facility] ([facility]) [address] [place], [address], 03/31/2024 06:11:33 03/30/20 24 03/31/2024 COMP. METAB OLIC PANEL (14) globulin, total 2.6 g/dL 1.5-4. 5 Not Available [facility] ([facility]) [address] [place], [address], 03/31/2024 06:11:33 03/30/20 24 03/31/2024 COMP. METAB OLIC PANEL (14) bilirubin, total 0.7 mg/dL 0.0-1. 2 normal Not Available [facility] ([facility]) [address] [facility] [place], [address], 03/31/2024 06:11:33 03/30/20 24 03/31/2024 COMP. METAB OLIC PANEL (14) alkaline phosphatase 87 IU/L 44-121 normal Not Available [facility] ([facility]) [address] [facility] [place], [address], 03/31/2024 06:11:33 03/30/20 24 03/31/2024 COMP. METAB OLIC PANEL (14) AST (SGOT) 16 IU/L 0-40 normal Not Available [facility] ([facility]) [address] [facility] [place], [address], 03/31/2024 06:11:33 03/30/20 24 03/31/2024 COMP. METAB OLIC PANEL (14) ALT (SGPT) 15 IU/L 0-44 normal Not Available [facility] ([facility]) [address] [facility] [place], [address], 03/31/2024 06:11:33 03/30/20 24 03/31/2024 LIPID PANEL cholesterol, total 145 mg/dL 100-19 9 normal Not Available [facility] ([facility]) [address] [place], [address], 03/31/2024 06:11:33 03/30/20 24 03/31/2024 LIPID PANEL triglyceride s 336 mg/dL 0-149 above high normal Not Available [facility] ([facility]) [address] [place], [address], 03/31/2024 06:11:33 03/30/20 24 03/31/2024 LIPID PANEL HDL cholesterol 28 mg/dL >39 below low normal Not Available [facility] ([facility]) [address] [facility], [place], [address], 03/31/2024 06:11:33 03/30/20 24 03/31/2024 LIPID PANEL VLDL cholesterol priya 53 mg/dL 5-40 above high normal Not Available [facility] ([facility]) [address] [facility], [place], [address], 03/31/2024 06:11:33 03/30/20 24 03/31/2024 LIPID PANEL LDL chol calc ([facility]) 64 mg/dL 0-99 Not Available [facility] ([facility]) [address] [facility], [place], [address], 03/31/2024 06:11:33 03/30/20 24 03/31/2024 LIPID PANEL LDL calc comment: TONSORIAL ARTIST Not Available [facility] ([facility]) [address] [facility], [place], [address], 03/31/2024 06:11:33 03/30/20 24 03/31/2024 HEMOG LOBIN A1C hemoglobin A1C 6.1 % 4.8-5. 6 above high normal Predi abete s: 5.7 - 6.4 Diabe maritza: >6.4 Glyce rocael contr ol for adult s with diabe maritza: <7.0 Not Available [facility] ([facility]) [address] [facility], [place], [address], 03/31/2024 06:11:33 06/28/20 24 06/28/2024 HbA1c (hemo globi n A1c), blood HbA1c 6.8 Not Available [address], [place], [address], 06/28/2024 09:15:06 04/02/2004/01/2023 CT, angio gram, chest , w/o contr ast No observ ation record ed. [email or web address] [address], [place], [address], 04/06/2023 08:52:33 04/02/20 23 04/01/2023 CT, abdom en + pelvi s, w/ contr ast No observ ation record ed. [address], [place], [address], 04/03/2023 10:19:59 04/02/20 23 04/02/2023 cardi ovasc ular stres s test, exerc ise, jen nuous elect rocar diogr aphic monit oring /phar macol ogica l stres s; with super visio n (PROC ) No observ ation record ed. [address], [place], [address], 04/06/2023 08:53:52 04/02/20 23 04/01/2023 elect rocar diogr am No observ ation record ed. [address], [place], [place], [address], 04/06/2023 08:53:20 04/06/20 23 04/06/2023 CT, abdom en + pelvi s, w/ contr ast No observ ation record ed. [address], [place], [place], [address], 04/07/2023 08:03:59 04/21/20 23 04/17/2023 home sleep study No observ ation record ed. [facility] [address] [facility] [address], [place], [address], 04/22/2023 11:00:54 05/11/20 23 05/11/2023 XR, chest No observ ation record ed. [address], [place], [place], [address], 05/11/2023 08:36:53 09/18/05/11/2023 elect edgar read am No observ ation record ed. [email or web address] [facility] [address], [place], [address], 05/12/2023 08:16:08 07/09/20 23 07/09/2023 gastr ic empty ing study (PROC ) No observ ation record ed. [email or web address] [facility] [address], [place], [address], 07/10/2023 09:20:41 07/17/20 23 07/17/2023 XR, knee, 3 view No observ ation record ed. [address], [place], [address], 07/20/2023 09:54:38 07/17/20 23 07/17/2023 XR, femur , 2 or more view No observ ation record ed. [address], [place], [address], 07/20/2023 09:54:19 07/17/20 23 07/17/2023 XR, knee, 3 view No observ ation record ed. [address], [place], [address], 07/20/2023 09:53:54 07/17/20 23 07/17/2023 XR, knee, 3 view No observ ation record ed. [address], [place], [address], 07/20/2023 09:53:34 08/19/20 23 08/19/2023 XR, knee No observ ation record ed. [address], [place], [address], 08/25/2023 10:28:32 08/19/20 23 08/19/2023 XR, knee No observ [facility] ed. [email or web address] [address], [place], [address], 08/25/2023 10:28:08 09/23/19 24 XR, hip, unila teral , 2 or 3 view No observ ation record ed. [email or web address] Not Available 2023 15:59:02 09/23/19 24 XR, shoul lucretia, 2 or more view No observ ation record ed. [email or web address] Not Available 2023 15:59:02 09/23/19 24 XR, ribs, unila teral No observ ation record ed. [email or web address] Not Available 2023 15:59:03 10/03/19 24 10/03/2023 CT, abdom en + pelvi s, w/ contr ast No observ ation record ed. [place] [id number] [facility] [place], [address], 10/03/2023 10:41:39 11/08/19 24 11/05/2023 elect rocar diogr am No observ [facility]ion record ed. [email or web address] [place] [address] [facility], [place], [address], 11/09/2023 08:37:59 01/11/20 24 10/02/2023 US, scrot um No observ ation record ed. [place] [id number] [facility], [place], [address], 01/11/2024 11:24:21 05/01/20 24 05/01/2024 CT, abdom en + pelvi s, w/ contr ast No observ ation record ed. [place] [id number] [facility], [place], [address], 05/01/2024 15:09:09 05/15/20 24 05/14/2024 CT, thigh , w/o contr ast No observ ation record ed. [email or web address] [place] [address], [address], 06/13/2024 11:09:11 05/15/20 24 05/14/2024 CT, lumba r spine , w/o contr ast No observ ation record ed. [place] [address], [address], 06/13/2024 11:08:57 05/15/20 24 05/14/2024 CT, abdom en + pelvi s, w/ contr ast No observ ation record ed. [place] [id number] [place], [address], 06/13/2024 11:08:15 11/07/19 25 11/06/2024 CT, angio gram, chest + abdom en, w/ contr ast No observ ation record ed. [place] [address], [place], [address], 11/06/2024 17:48:14 11/10/19 25 11/06/2024 elect edgar read am No observ ation record ed. [place] [address], [address], 11/09/2024 08:30:41 Result Notes None recorded. Problems Name Problem SNOMED Code Status Onset Date Resolution Date Notes Provider Name and Address Organization Details Recorded Time Generali zed anxiety disorder 16549636 Active 2016 Problem Code: F41.1; Problem Code Type: ICD-10; Not Available [facility] 2 22:41:03 Restless legs syndrome 66705648 Active 2016 Problem Code: G25.81; Problem Code Type: ICD-10; Not Available [facility] 22:41:03 Hyperten sive disorder 37394465 Active 2016 Problem Code: I10; Problem Code Type: ICD-10; Not Available [facility] 2 22:41:04 Benign essentia l hyperten gabriella 6989884 Active 2016 Problem Code: 401.1; Problem Code Type: ICD-9; Not Available [facility] 2 22:41:10 Dyspnea 247649520 Completed 201609/26/2016 Problem Code: R06.00; Problem Code Type: ICD-10; Not Available [facility] 2 22:41:11 Respirat ory symptom 733000414 Completed 201609/26/2016 Not Available [facility] 2 22:41:12 Large prostate 874237117 Active 2017 Problem Code: N40.0; Problem Code Type: ICD-10; Not Available [facility] 2 22:41:05 Diaphrag matic hernia 86410831 Completed 201709/06/2021 Problem Code: 553.3; Problem Code Type: ICD-9; Not Available [facility] 2 22:41:10 Low back pain 640621359 Completed 201709/06/2021 Problem Code: 724.2; Problem Code Type: ICD-9; Not Available [facility] 2 22:41:11 Benign prostati c hyperpla jimmie 933862670 Completed 201709/06/2021 Problem Code: 600.00; Problem Code Type: ICD-9; Not Available [facility] 2 22:41:12 Diaphrag matic hernia 88562401 Active 2017 Problem Code: K44.9; Problem Code Type: ICD-10; Not Available [facility] 2 22:41:04 Moderate major depressi on, single episode 78240968 Completed 201706/08/2020 Problem Code: F32.1; Problem Code Type: ICD-10; Not Available [facility] 2 22:41:03 Male erectile disorder Active 2017 Not Available [facility] 2 22:41:03 Chronic peripher al venous hyperten gabriella 783226481 Completed 201706/18/2018 Problem Code: I87.303; Problem Code Type: ICD-10; Not Available [facility] 2 22:41:04 Acute sinusiti s 47351304 Completed 201705/03/2018 Problem Code: J01.90; Problem Code Type: ICD-10; Not Available [facility] 2 22:41:04 Psychose xual dysfunct ion associat ed with inhibite d libido 484289021 Completed 201709/06/2021 Problem Code: 302.72; Problem Code Type: ICD-9; Not Available [facility] 2 22:41:10 Depressi ve disorder 55321125 Completed 201709/06/2021 Problem Code: 311; Problem Code Type: ICD-9; Not Available [facility] 2 22:41:10 Disorder of cardiova scular system 73817519 Completed 201706/18/2018 Problem Code: 459.9; Problem Code Type: ICD-9; Not Available [facility] 2 22:41:11 Benign cutaneou s vascular tumor Completed 201706/08/2020 Problem Code: D21.9; Problem Code Type: ICD-10; Not Available [facility] 2 22:41:03 Benign neoplasm of soft tissue 63595430 Completed 201709/06/2021 Problem Code: 215.8; Problem Code Type: ICD-9; Not Available [facility] 2 22:41:09 Atherosc lerosis of renal artery 70979810 Active 2017 Problem Code: I70.1; Problem Code Type: ICD-10; Not Available [facility] 2 22:41:04 Gallblad lucretia calculus with acute cholecys titis and no obstruct ion 902159670 Completed 201708/14/2018 Problem Code: K80.00; Problem Code Type: ICD-10; Not Available [facility] 2 22:41:08 Calculus of gallblad lucretia with acute cholecys titis 36700286 Completed 201708/14/2018 Problem Code: 574.00; Problem Code Type: ICD-9; Not Available [facility] 2 22:41:11 Nystagmu s 985647 Completed 201806/08/2020 Problem Code: H55.00; Problem Code Type: ICD-10; Not Available [facility] 2 22:41:04 Pain of left elbow joint 03563360797 180341 Completed 201809/23/2022 Problem Code: M25.522; Problem Code Type: ICD-10; BEAU arambula, [employer] 3 08:41:37 Low back pain 797517503 Active 2018 Problem Code: M54.5; Problem Code Type: ICD-10; Not Available [facility] 2 22:41:09 Body mass index 30+ - obesity 511249752 Completed 201807/31/2020 Problem Code: Z68.33; Problem Code Type: ICD-10; Not Available [facility] 2 22:41:13 Acute frontal sinusiti s 28108648 Completed 201906/08/2020 Problem Code: J01.10; Problem Code Type: ICD-10; Not Available [facility] 2 22:41:04 Choleste rol screenin g Completed 201906/08/2020 Not Available [facility] 2 22:41:07 Body mass index 30+ - obesity 032136389 Completed 201906/08/2020 Problem Code: Z68.32; Problem Code Type: ICD-10; Not Available [facility] 2 22:41:08 Epigastr ic hernia 963309156 Active 2019 Problem Code: K43.9; Problem Code Type: ICD-10; Not Available [facility] 2 22:41:04 Screenin g for malignan t neoplasm of colon Completed 201909/23/2022 BEAU ar[place]ula, [employer] 3 08:41:37 Hyperlip idemia 25876710 Active 2019 Problem Code: E78.5; Problem Code Type: ICD-10; Not Available [facility] 2 22:41:03 Pain of left hip joint 58004972893 9100 Completed 201906/08/2020 Problem Code: M25.552; Problem Code Type: ICD-10; Not Available [facility] 2 22:41:05 Abdomina l pain 73348881 Completed 201909/23/2022 Problem Code: R10.9; Problem Code Type: ICD-10; BE[place] ar[place]ula, [employer] 3 08:41:37 Body mass index 30+ - obesity 037057973 Active 2019 Problem Code: Z68.30; Problem Code Type: ICD-10; Not Available [facility] 2 22:41:08 Noncompl iance with dietary regimen 024150789 Active 2019 Problem Code: Z91.11; Problem Code Type: ICD-10; Not Available [facility] 2 22:41:09 Prostate specific antigen above referenc e range 826818837 Active 2019 Problem Code: R97.20; Problem Code Type: ICD-10; Not Available [facility] 2 22:41:12 Dysphagi a 59205959 Active 2019 Not Available [facility] 2 22:41:05 General examinat ion of patient Active 2019 Not Available [facility] 2 22:41:06 Cramp in lower limb associat ed with sleep 60331040950 4104 Completed 201903/17/2021 Problem Code: G47.62; Problem Code Type: ICD-10; Not Available [facility] 2 22:41:04 Dizzines s and giddines s 637238948 Completed 201909/23/2022 Problem Code: R42; Problem Code Type: ICD-10; BE[place] ar[place]ula, [employer] 3 08:41:37 Pre-surg vianey evaluati on Completed 202009/23/2022 BE[place] ar[place]ula, [employer] 3 08:41:37 Lacerati on of left ring finger 74250736613 857970 Active 2020 Not Available [facility] 2 22:41:06 Lacerati on of finger with foreign body 703686142 Completed 202009/06/2021 Problem Code: S61.227D ; Problem Code Type: ICD-10; Not Available [facility] 2 22:41:06 Dysuria 58706172 Active 2021 Problem Code: R30.0; Problem Code Type: ICD-10; Not Available [facility] 22:41:05 Bilatera l hearing loss 50755234 Active 2021 Not Available [facility] 22:41:04 Acute maxillar y sinusiti s 38463371 Completed 202109/23/2022 Problem Code: J01.00; Problem Code Type: ICD-10; BEAU arambula, [employer] 3 08:41:37 Type 2 diabetes mellitus without complica tion 407071193 Active 2023 Shakira Todd APRN [address] [place] [address], [address] , [employer] 4 09:21:56 Problem Notes None recorded. Procedures Surgical History Date Name Laterality Status Provider Name and Address Organization Details Recorded Time 09/10/19 24 procedure on heart completed Shakira Todd APRN [address] [place], [address], [employer] 09/23/2023 08:37:42 07/24/20 23 procedure on heart completed Miladyssohail Guerrero [employer] 09/23/2023 08:21:45 06/24/20 23 left atrial appendage closure completed Shakira Todd APRN [address] [place], [address], [employer] 06/26/2023 11:39:13 03/13/20 23 Prostate Surgery completed [employer] 03/20/2023 08:54:15 10/23/19 23 cystoscopic extraction of ureteric calculus without disintegration completed Shakira Todd APRN [address] [facility], [place], [address], [employer] 11/10/2022 17:51:39 Imaging Results None recorded. Procedure Notes None recorded. Medical Equipment None Reported. Allergies Allergen ID Allergen Name Allergen Category Reaction Reaction Severity Criticality Documentation Date Start Date Code Code System Note Provider Name and Address Organization Details Recorded Time 16738 Substance with sulfonami de structure and antibacte rial mechanism of action (substanc e) medicatio n itching Not available Not available 04/29/2022 32619 8003 SNOMED BEAU ELIJAHNEAR [employer], [employer] 3 08:36:49 65728 amitripty line hydrochlo ride medicatio n other Not available Not available 04/29/2022 13776 8 RxNorm Miladys Nance [employer], [employer] 4 08:18:00 16060 Cymbalta medicatio n other Not available Not available 04/29/2022 43284 4 RxNorm Miladys Cesar [employer], [employer] 4 08:18:05 45871 atorvasta tin calcium medicatio n other Not available Not available 04/29/2022 26444 RxNorm Miladys Cesar [employer], [employer] 4 08:18:03 Medications Name Sig Start Date Stop Date Status Note LastModified by Organization Details LastModified Time atorvastati n 40 mg tablet 1 po qhs 05/14 completed Not Available Not Available Not Available methocarbam ol 500 mg tablet TAKE 1 TABLET BY MOUTH EVERY 12 HOURS NEEDED FOR MUSCLE SPASM 06/28 completed Not Available Not Available Not Available Xanax 0.5 mg tablet 1 po bid 11/25 completed Not Available Not Available Not Available acetaminoph en 325 mg tablet Take 2 tablets every 6 hours by oral route. 04/10 completed Not Available Not Available Not Available carvedilol 6.25 mg tablet TAKE 1 TABLET BY MOUTH TWICE DAILY WITH FOOD 11/21 completed Not Available Not Available Not Available carvedilol 12.5 mg tablet TAKE 1 TABLET BY MOUTH TWICE DAILY 03/20 completed Not Available Not Available Not Available Neurontin 300 mg capsule Take 1 tablet at bedtime 09/12 completed Not Available Not Available Not Available azithromyci n 250 mg tablet take 2 tablets (500 mg) by oral route once daily for 1 day then 1 tablet (250 mg) by oral route once daily for 4 days 11/04 completed Not Available Not Available Not Available ibuprofen 800 mg tablet take 1 tablet (800 mg) by oral route 3 times per day with food 08/30 completed Not Available Not Available Not Available diltiazem CD 180 mg capsule,ext ended release 24 hr TAKE 1 CAPSULE BY MOUTH ONCE DAILY FOR 30 DAYS 09/23 completed Not Available Not Available Not Available tizanidine 4 mg tablet 1 po q hs 03/02 completed Not Available Not Available Not Available sucralfate 1 gram tablet TAKE 1 TABLET BY MOUTH 4 TIMES DAILY FOR 7 DAYS 09/23 completed Not Available Not Available Not Available phenazopyri dine 200 mg tablet 11/21 completed Not Available Not Available Not Available Paxil 20 mg tablet Take 1 tablet(s) by mouth daily 05/14 completed Not Available Not Available Not Available ondansetron HCl 4 mg tablet TAKE 1 TABLET BY MOUTH TWICE DAILY NEEDED FOR UP TO 7 DAYS 03/20 completed Not Available Not Available Not Available famotidine 40 mg tablet TAKE 1 TABLET BY MOUTH TWICE DAILY FOR STOMACH 03/20 completed Not Available Not Available Not Available prednisone 5 mg tablet 10 pills po today and decrease by one pill each day 01/03 completed Not Available Not Available Not Available Wellbutrin SR 150 mg tablet, 12 hr sustained-r elease Take 1 tablet(s) by mouth bid 08/30 completed Not Available Not Available Not Available amlodipine 2.5 mg tablet Take 1 tablet by mouth once daily for blood pressure active Not Available Not Available No t Available clopidogrel 75 mg tablet TAKE 1 TABLET BY MOUTH ONCE DAILY active Not Available Not Available No t Available dextrometho tammyhan-guaif enesin 10 mg-100 mg/5 mL oral syrup Take 1 teaspoon by mouth q4h prn for cough 06/15 completed Not Available Not Available Not Available omeprazole 40 mg capsule,del ayed release Take 1 capsule(s ) by mouth daily 07/22 completed Not Available Not Available Not Available aspirin 81 mg tablet,rodolfo yed release TAKE 1 TABLET BY MOUTH ONCE DAILY IN THE MORNING 04/10 completed Not Available Not Available Not Available doxycycline monohydrate 100 mg tablet TAKE 1 TABLET BY MOUTH ONCE DAILY WITH A FULL GLASS OF WATER AND DO NOT LIE DOWN FOR AT LEAST 30 MINUTES AFTER 06/28 completed Not Available Not Available Not Available tramadol 50 mg tablet TAKE 1 TABLET BY MOUTH EVERY 6 TO 8 HOURS NEEDED FOR PAIN 11/21 completed Not Available Not Available Not Available amitriptyli ne 50 mg tablet Take 1-2 tablets PO at bedtime 05/14 completed Not Available Not Available Not Available sildenafil 100 mg tablet Take 1 tablet(s) by mouth prn approxima tely 1 hour before sexual activity 05/14 completed Not Available Not Available Not Available carvedilol 3.125 mg tablet Take 1 tablet(s) by mouth bid 05/14 completed Not Available Not Available Not Available methocarbam ol 750 mg tablet TAKE 1 TABLET BY MOUTH TWICE DAILY NEEDED active Not Available Not Available No t Available Klonopin 0.5 mg tablet 1 tablet po bid 09/12 completed Not Available Not Available Not Available tamsulosin 0.4 mg capsule TAKE 1 CAPSULE BY MOUTH ONCE DAILY FOR 4 DAYS 03/20 completed Not Available Not Available Not Available phenazopyri dine 100 mg tablet 11/21 completed Not Available Not Available Not Available amlodipine 10 mg tablet TAKE 1 TABLET BY MOUTH ONCE DAILY 09/23 completed Not Available Not Available Not Available doxycycline monohydrate 100 mg capsule TAKE 1 CAPSULE BY MOUTH TWICE DAILY FOR 10 DAYS 09/23 completed Not Available Not Available Not Available cephalexin 500 mg capsule 04/10 completed Not Available Not Available Not Available pantoprazol e 40 mg tablet,rodolfo yed release TAKE 1 TABLET BY MOUTH ONCE DAILY active Not Available Not Available No t Available Norvasc 5 mg tablet Take 1 tablet(s) by mouth daily 09/26 completed Not Available Not Available Not Available clotrimazol e-betametha sone 1 %-0.05 % topical cream APPLY CREAM TOPICALLY TWICE DAILY 03/30 completed Not Available Not Available Not Available flecainide 50 mg tablet TAKE 1 TABLET BY MOUTH TWICE DAILY 09/23 completed Not Available Not Available Not Available diclofenac sodium 75 mg tablet,rodolfo yed release TAKE 1 TABLET BY MOUTH ONCE DAILY NEEDED FOR BACK PAIN active Not Available Not Available No t Available allopurinol 300 mg tablet Take 1 tablet by mouth once daily active Not Available Not Available No t Available hydrochloro thiazide 25 mg tablet 1 po daily 05/14 completed Not Available Not Available Not Available furosemide 20 mg tablet TAKE 1 TABLET BY MOUTH ONCE DAILY active Not Available Not Available No t Available gabapentin 100 mg capsule take 1 capsule (100 mg) by oral route 3 times per day 09/23 completed Not Available Not Available Not Available albuterol 90 mcg/actuati on aerosol inhaler Inhale 2 puff(s) by mouth q 4 to 6 hr 05/14 completed Not Available Not Available Not Available ibuprofen 600 mg tablet 03/30 completed Not Available Not Available Not Available levofloxaci n 750 mg tablet TAKE 1 TABLET BY MOUTH ONCE DAILY FOR 7 DAYS 03/30 completed Not Available Not Available Not Available benazepril 40 mg tablet Take 1 tablet by mouth once daily active Not Available Not Available No t Available methylpredn isolone 4 mg tablets in a dose pack TAKE DIRECTED ON PACKAGE 03/30 completed Not Available Not Available Not Available oxybutynin chloride 5 mg tablet TAKE 1 TABLET BY MOUTH THREE TIMES DAILY 03/30 completed Not Available Not Available Not Available ondansetron 4 mg disintegrat ing tablet DISSOLVE 1 TABLET IN MOUTH ONCE DAILY NEEDED FOR NAUSEA AND VOMITING FOR 5 DAYS active Not Available Not Available No t Available cefdinir 300 mg capsule 2 capsules po after the evening meal, once a day 11/21 completed Not Available Not Available Not Available naproxen 500 mg tablet TAKE 1 TABLET BY MOUTH TWICE DAILY NEEDED FOR UP TO 5 DAYS 03/20 completed Not Available Not Available Not Available amoxicillin 875 mg-rosy m clavulanate 125 mg tablet TAKE 1 TABLET BY MOUTH TWICE A DAY FOR 5 DAYS 06/28 completed Not Available Not Available Not Available Ventolin HFA 90 mcg/actuati on aerosol inhaler Inhale 2 puff(s) by mouth q 4 to 6 hr 08/30 completed Not Available Not Available Not Available oxycodone 5 mg tablet TAKE 1 TABLET BY MOUTH TWICE DAILY NEEDED FOR BREAKTHRO UGH PAIN 06/28 completed Not Available Not Available Not Available Zetia 10 mg tablet take 1 tablet (10 mg) by oral route once daily 09/06 completed Not Available Not Available Not Available rosuvastati n 10 mg tablet TAKE 1 TABLET BY MOUTH ONCE DAILY FOR 30 DAYS 04/10 completed Not Available Not Available Not Available rosuvastati n 40 mg tablet TAKE 1 TABLET BY MOUTH ONCE DAILY active Not Available Not Available No t Available tadalafil 20 mg tablet TAKE 1 TABLET BY MOUTH EVERY 72 HOURS NEEDED FOR ERECTILE DYSFUNCTI ON active Not Available Not Available No t Available metoprolol tartrate 25 mg tablet TAKE 1 TABLET BY MOUTH TWICE DAILY 09/23 completed Not Available Not Available Not Available Edgar Multiv[employer] n For [employer] 03/30 completed Not Available Not Available Not Available Xarelto 15 mg tablet TAKE 1 TABLET BY MOUTH ONCE DAILY 03/30 completed Not Available Not Available Not Available Myrbetriq 50 mg tablet,exte nded release TAKE 1 TABLET BY MOUTH ONCE DAILY 03/30 completed Not Available Not Available Not Available Creon 36,000 unit-114,00 0 unit-180,00 0 unit capsule,del ayed release TAKE 1 CAPSULE BY MOUTH THREE TIMES DAILY TAKE WITH MEALS AND/OR SNACKS active Not Available Not Available No t Available Ultra CoQ10 100mg 09/23 completed Not Available Not Available Not Available ashwagandha extract 1,300mg once a day 03/30 completed Not Available Not Available Not Available Vitals Date Recorded Body height Body mass index (BMI) Body weight Body temperature Heart rate Oxygen saturation Systolic And Diastolic Systolic And Diastolic Systolic And Diastolic Provider Name and Address Organization Details Last Updated DateTime 4 172.72 cm 36.2 kg/m2 049894. 7 g 98 [degF] 60 /min 97 % 150/89 mm[Hg] 170/77 mm[Hg] 150/81 mm[Hg] Miladys Guerrero [employer] 4 08:23:48 Date Recorded Body height Body mass index (BMI) Body weight Body temperature Heart rate Oxygen saturation Systolic And Diastolic Provider Name and Address Organization Details Last Updated DateTime 3 172.72 cm 36 kg/m2 494153. 95 g 98.4 [degF] 48 /min 98 % 138/67 mm[Hg] [employer] 3 13:05:18 Date Recorded Body height Body mass index (BMI) Body weight Body temperature Heart rate Oxygen saturation Systolic And Diastolic Systolic And Diastolic Systolic And Diastolic Provider Name and Address Organization Details Last Updated DateTime 4 172.72 cm 36 kg/m2 611836. 39 g 97.8 [degF] 67 /min 97 % 148/53 mm[Hg] 146/71 mm[Hg] 146/70 mm[Hg] [employer] 4 13:51:10 Date Recorded Body height Body mass index (BMI) Body weight Body temperature Heart rate Oxygen saturation Systolic And Diastolic Provider Name and Address Organization Details Last Updated DateTime 3 172.72 cm 35.3 kg/m2 094788. 43 g 97.7 [degF] 62 /min 99 % 116/65 mm[Hg] [employer] 3 08:53:09 Date Recorded Body height Body mass index (BMI) Body weight Body temperature Heart rate Oxygen saturation Systolic And Diastolic Systolic And Diastolic Systolic And Diastolic Provider Name and Address Organization Details Last Updated DateTime 4 172.72 cm 37.6 kg/m2 007935. 32 g 97.8 [degF] 62 /min 98 % 164/52 mm[Hg] 165/78 mm[Hg] 164/64 mm[Hg] [employer] 4 09:13:37 Social History Question Answer Notes LastModified by Organizat ion Details LastModified Time Tobacco Smoking Status Never Smoker [place], [employer] 10/24/2022 10:19:10 Do You Have An Advance Directive? No Information not available 09/23/2022 Is Your Home Air Conditioned? Yes Information not available 09/23/2022 How Many Years Have You Consumed Alcohol? 5 Information not available 09/23/2022 Do You Wear A Helmet When Biking? No Information not available 09/23/2022 Are You Blind Or Do You Have Difficulty Seeing? No Information not available 09/23/2022 What Is Your Level Of Caffeine Consumption? Occasional Information not available 09/23/2022 In The 14 Days Before Symptom Onset, Have You Had Close Contact With A Laboratory-confir med COVID-19 While That Case Was Ill? No Information not available 09/23/2022 In The 14 Days Before Symptom Onset, Have You Had Close Contact With A Person Who Is Under Investigation For COVID-19 While That Person Was Ill? No Information not available 09/23/2022 Have You Been To An Area Known To Be High Risk For COVID-19? No Information not available 09/23/2022 Are You Deaf Or Do You Have Serious Difficulty Hearing? Yes Information not available 09/23/2022 What Type Of Diet Are You Following? REGULAR Information not available 09/23/2022 Who Is Your Employer? [employer] Information not available 09/23/2022 How Many Days Of Moderate To Strenuous Exercise, Like A Brisk Walk, Did You Do In The Last 7 Days? 6 Information not available 09/23/2022 Have There Been Any Changes To Your Family Or Social Situation? Yes Information no t available 09/23/2022 Are There Any Guns Present In Your Home? Yes Information not available 09/23/2022 Which Of Your Hands Is Dominant? Bilateral Information not available 09/23/2022 What Is Your Home Situation? Other Information not available 09/23/2022 Do You Have A Medical Power Of Plug Making Operator? No Information not available 09/23/2022 What Was The Date Of Your Most Recent Tobacco Screening? 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 Yes Information not available 09/23/2022 Do You Use Protection During Sex? Usually Information not available 09/23/2022 What Is Your Relationship Status? Information not available 09/23/2022 Have You Repeated Any Grades? No Information not available 09/23/2022 Do You Use Your Seat Belt Or Car Seat Routinely? Yes Information not available 09/23/2022 Are You Sexually Active? Yes Information not available 09/23/2022 Do You Have Any Siblings? Sister Information not available 09/23/2022 Do You Have Smoke And Carbon Monoxide Detectors In Your Home? Yes Information not available 09/23/2022 Are You Passively Exposed To Smoke? No Information no t available 09/23/2022 Are There Any Smokers In Your House? No Information not available 09/23/2022 What Types Of Sporting Activities Do You Participate In? Sex Information not available 09/23/2022 Do You Use Sunscreen Routinely? No Information not available 09/23/2022 Have You Recently Traveled Abroad? No Information not available 09/23/2022 Do You Have Difficulty Walking Or Climbing Stairs? Yes Information not available 09/23/2022 Do You Have Any Dietary Restrictions? No Information not available 09/23/2022 How Many Days In The Past Year Have You Consumed 5 Or More Drinks? 0 Information no t available 09/23/2022 Sex: Male Functional Status Question Answer Note LastModified by Organizat ion Details LastModified Time Do you use any illicit or recreational drugs? No Information not available 09/23/2022 Do you or have you ever used any other forms of tobacco or nicotine? No Information not available 09/23/2022 What is your level of alcohol consumption? Occasional Information not available 09/23/2022 Are you currently employed? Yes Information not available 09/23/2022 Are you able to walk independently without assistance or assistive devices? YES[employer]OREST Information not available 09/23/2022 Do you have difficulty doing errands alone? No Information not available 09/23/2022 Are you able to care for yourself independently? Yes Information not available 09/23/2022 Do you have difficulty dressing, bathing, grooming, or toileting? No Information not available 09/23/2022 What is your exercise level? Heavy Information not available 09/23/2022 Mental Status Question Answer Note LastModified by Organizat ion Details LastModified Time Do you feel stressed (tense, restless, nervous, or anxious, or unable to sleep at night)? [id number] Information not available 09/23/2022 Do you have difficulty concentrating, remembering or making decisions? No Information no t available 09/23/2022 Are you or have you been involved with bullying? No Information not available 09/23/2022 Family History Relationship Description Onset Age of this Age Resolved Age Notes LastModified by Organization Details LastModified Time Unspecified Relation Family history of seizure disorder [email or web address] Not available 2022 10:19:00 Unspecified Relation Family history of Respiratory disease [email or web address] Not available 2022 10:18:56 Unspecified Relation Malignant neoplasm of colon [email or web address] Not available 2022 08:37:00 Maternal Grandmother Alzheimer's disease smynear Not available 2022 08:37:00 Mother Hypercholest erolemia smynear Not available 2022 08:37:00 Mother Asthma [email or web address] Not available 08:37:00 Mother Anxiety disorder smynear Not available 2022 08:37:00 Mother Depressive disorder smynear Not available 2022 08:37:00 Mother Arthritis smynear Not available 09/23/2022 08:37:00 Mother Hypertensive disorder smynear Not available 2022 08:37:00 Mother Heart disease smynear Not available 2022 08:37:00 Mother Kidney disease smynear Not available 2022 08:37:00 Sister Kidney disease smynear Not available 2022 08:37:00 Paternal Grandmother Alzheimer's disease smynear Not available 2022 08:37:00 Medical History Condition Response Heart Problems Y Gout Y Kidney Stones Y Hospitalizations Y Emergency room visit since last appointm ent. Y High Cholesterol Y Hypertension Y Past Encounters Encounter ID Performer Location Encounter Start Date Encounter Closed Date Diagnosis/Indication Diagnosis SNOMED-CT Code Diagnosis ICD10 Code Diagnosis IMO Codes Diagnosis Note [id number] Shakira Todd[address] [address] 09/23/2022 07:58:50 09/23/2022 09:13:24 Benign essential hypertension 9110737 I10 Take all BP meds as directed. DASH diet, exercise and weight loss encouraged . Hyperlipidemia 63953876 E78.5 I again today recommende d he take Zetia since he is statin intolerant and he refused. Prostate s pecific antigen above reference range 908281484 R97.20 General ex amination of patient 848854330 Z00.00 Body mass index 30+ - obesity 704883390 Z68.35 [id number] [address] 11/10/2022 15:03:48 11/10/2022 15:44:03 Paroxysmal atrial fibrillation 889704679 I48.0 Increase coreg to 12.5 mg BID. Continue Plavix and ASA. Jaundice 70310101 R17 Avoid all ETOH, tylenol products, herbals, and seafood. Handwashin g emphasized . Obtain Liver and Hep panels and Liver US. If his sx progress, he was inst to proceed to ER. [id number] Shakira Todd[address] [address] 11/21/2022 12:50:03 11/21/2022 13:50:32 Hyperglycemia 50207018 R73.9 Low carb diet, exercise and weight loss encouraged . A1c is NML today. Gout 57896018 M10.9 Needs refill Essential hypertension 49142444 I10 Needs refills [id number] [place] [address] 03/20/2023 08:37:02 03/20/2023 10:24:13 Paroxysmal atrial fibrillation 395825489 I48.0 Continue aspirin and Plavix for now and refer back to cardiology . I do hope to stop Plavix and start Eliquis once he has had follow-up with urology and the catheter is removed. He must obtain sleep study. Postoperative visit 1315 23979 H49 Continue to monitor for signs symptoms of infection. Push adequate fluids. Slowly increase daily activity and exercise tolerance. [id number] Shakira Todd [place] [address] 03/30/2023 12:55:37 03/30/2023 13:48:07 Superficial thrombophlebitis 9425519 I80.9 Left forearm. Elevate, continue keflex and apply warm compresses . Decrease metoprolol to BID... [id number] Shakira Todd [place] [address] 04/10/2023 08:42:12 04/10/2023 09:45:02 Paroxysmal atrial fibrillation 005370109 I48.0 Continue Xarelto and rate controller s. Instructed patient he must complete the sleep study as KARISHMA can be a contributo r for atrial fibs. Instructed him he must keep his cardiology appointmen t. Instructed him he must be compliant with medication s. He did have a glucose of 160 in the emergency room or hospital admit and we did check an A1c today. He does appear today to be in denial as to the seriousnes s of his cardiac condition. Hyperglycemia 06501997 R 73.9 Low carb diet, exercise and weight loss encouraged . [id number] [place] [address] 09/23/2023 08:03:35 09/23/2023 08:54:27 Benign essential hypertension 6719311 I10 Take all BP meds as directed. DASH diet, exercise and weight loss encouraged . Paroxysmal atrial fibrillation 111855204 I48.0 Has completed watchman and cardiac ablation. Hyperlipidemia 14924190 E78.5 Continue crestor Obstructiv e sleep apnea syndrome 34934305 G47.33 He has severe KARISHMA and continues to adamantly refuse CPAP. Gastroesop hageal reflux disease without esophagitis 631564797 K21.9 Continue PPI Fall on sa me level from slipping, tripping or stumbling 757254994 W01.0XXA Falls safety encouraged . Benign pro static hyperplasia 431431253 N40.0 Inst him to follow up with his Urologist, check UA today. Rib pain 328448205 R07.8 1 Pain of le ft hip joint 8143146910 46837 M25.552 Pain of le ft shoulder joint 9531675644 8228997 M25.512 Gout 35960941 M10.9 Needs refill Atheroscle rosis of coronary artery without angina pectoris 6104074145 59340 I25.10 Carotid ar juan pablo stenosis 99870827 I65.29 Body mass index 30+ - obesity 991825592 Z68.35 [id number] [place] [address] 03/30/2024 13:23:10 03/30/2024 14:24:43 Essential hypertension 24637758 I10 Add amlodipine 2.5 mg daily, continue benazapril . Weight loss, DASH diet, and BP control emphasized . Mixed hyperlipidemia 267 874196 E78.2 Continue statin Diabetes m ellitus screening 488299107 Z13.1 Gastroesop hageal reflux disease without esophagitis 702166559 K21.9 Continue PPI Paroxysmal atrial fibrillation 846398814 I48.0 Has completed watchman and cardiac ablation. Atheroscle rosis of coronary artery without angina pectoris 2956525320 54265 I25.10 Continue plavix Carotid ar juan pablo stenosis 43841162 I65.29 Contnue statin and plavix. Gout 06535939 M10.9 Needs refill Body mass index 30+ - obesity 727620655 Z68.35 [id number] Shakira Todd, SURVEILLANCE DIRECTOR [address] [address] 06/28/2024 08:55:59 06/28/2024 10:23:48 Type 2 diabetes mellitus without complication 427219186 E11.9 Patient was argumentat peter when I explained his A1c result and now Type 2 diabetes diagnosis. He stated I feel fine, I don't have diabetes, you all just want more money and I'm not taking your diabetes pills. I gave him a handout from [facility] explaining A1c limits and diabetes diagnosis. Low carb diet, exercise, and not drinking soda were all encouraged . He does agree to RTC in 3 months to see if A1c is improved with dietary modificati on. Health Concerns Section Related Observation LastModified by Organization Detai ls LastModified Time None Recorded Concern Status LastModified by Organization Details LastModified Time None Recorded Advance Directives Directive N: Payers Insurance Date Sequence Insurance Name Policy Number Policy Puri Covered Member ID Puri Member ID Guarantor Name 06/28/2024 2 MEDICAID-[facility] CHO[facility] - FFS/TRADITIO NAL Noel Tyson [id number] Noel Tyson 06/28/2024 1 [place] [id number] 1 Noel Tyson [id number] Noel Tyson 09/27/2024 1 [place] [id number] 1 Noel Tyson [id number] Noel Tyson 06/28/2024 2 [employer] [place] (MEDICA[place] HMO[place] Noel Tyson [id number] [facility] Notes Date Note Type Note Provider Name and Address Organization Details Recorded Time 3 text/htm l Emergency Department Follow-Up RecordReported by PatientEmergency Room Follow-Up RecordFor discharge information, patient reportsname of ed __ ([facility])andemergency department discharge date: (please enter in format 'mm/dd/yyyy') (03/26/2023).Patient presents for emergency room follow-up he was seen at the [facility] due to the superficial phlebitis on his left forearm. This was suspected to be due to multiple IV sticks in that arm during his recent hospitalization. He had developed edema and erythema on the left forearm and he reported to the emergency room. Ultrasound was negative for thrombus in the left arm. He was placed on Keflex in the emergency room, and he continues to take this. It also should be noted that his heart rate is bradycardic at 48 today and he has gotten his metoprolol tartrate dosing confused and has been taking it 4 times per day instead of twice per day. Shakira Todd APRN [address] [place], [address], [employer] 03/30/2023 18:01:08 3 text/htm l Hospitalization Contact RecordReported by PatientHospitalization Contact RecordFor follow up, patient reportshospital: __ [facility])anddate of discharge: (please enter in format 'mm/dd/yyyy') (04/02/2023).Patient with history of atrial fibs and hypertension. Presented to the emergency room at [facility] on above day after he developed A-fib with RVR with shortness of breath and dizziness and a heart rate of 160s. He recently underwent a radical prostatectomy at the [facility] and was off Xarelto as he still had a catheter in and was recovering from postop procedure. Hospital records were reviewed today. He was also noted to have an abscess or seroma at his prostatectomy site on CAT scan, he did see Dr. Garcia for urology yesterday, aspiration of the abscess room revealed that it was a postop seroma. His heart rate is stabilized, he is taking beta-blossom and Xarelto. He has had his catheter removed. He has a sleep study for home pending. He has an appointment this coming week for follow-up with cardiology at . Shakira Todd APRN [address] [place], [address], [employer] 04/12/2023 17:59:18 4 text/htm l HyperlipidemiaReported by PatientHPIFor duration, patient reportschronic. For control, patient reportsnot at goal. For adherence to treatment plan, patient reportsdoes not follow recommended dietanddoes not exercisebut reportstakes medications as prescribed. For complications, patient reportscardiovascular disease. For risk factors, patient reportsfamily history of premature arteriosclerotic cardiovascular disease,hypertension,obesity ,low hdl level, andconsumption of saturated fats and trans-fatty acids. Reflux/GERDReported by PatientHPIFor quality, patient reportsburningandpressure. For severity, patient reportsmoderatebut reportsimproving. For context, patient reportsrelated to spicy foodsbut reportsnon-smoker,no drug/alcohol abuse,no drug alcohol withdrawal,related to stress,positional, andhistory of endoscopy. For aggravating factors, patient reportslying downandworsened by foodbut reportsacidic foods. For associated symptoms, patient reportsbelching/burping,hear tburn, anddyspepsiabut reportsno frequent coughing,no globus sensation,no hoarseness,no nausea,no vomiting,no hematemesis,no regurgitation,no shortness of breath, andno chest pain. For duration, patient reportspresent 5 or more years. For onset/timing, patient reportsgradual onsetandoccasional. For alleviating factors, patient reportsproton pump inhibitorsandelevating head of bed. For risk factors, patient reportsobesity. Hypertension F/UReported by PatientHPIFor lifestyle, patient reportsnot exercising regularlyanddoes not adhere to low sodium diet. For medications, patient reportstaking medications as directedandno side effects from medication. For associated symptoms, patient reportsno dizziness,no lightheadedness,no chest pain,no shortness of breath,no palpitations,no edema,no calf pain with exertion, andno headache.ROS as noted in the HPI Pt has severe KARISHMA, he complains of mild memory loss in conversation, frequent falls, fatigue, and irritability. He continues to adamantly refuse to wear a CPAP. I again today explained the consequences of untreated KARISHMA and that this was likely a significant contributing factor of his complaints. He states he fell 2 weeks ago on ice when he was carrying a propane tank into a friend's home. He has pain in left shoulder, left ribs, and left hip. He has an appt with Ortho for chonic Bilateral knee pain next week. He has significant bruising on his left hip today. He has normal ROM of left shoulder and left hip. He has AFIB and has underwent a Watchman and ablation in the past 6 months. he had TURP in 02/2023 and continues to complain of urinary sx but henderson not gone back to Urology. Gout is without recent flare on allopurinol. He has chronic GERD and is stable on PPI but has sx if he treis to stop the med. He has been scoped and sees GI. Shakira Todd, SURVEILLANCE DIRECTOR [address] [place], [address], [facility], [facility]. 09/23/2023 10:32:20 4 text/htm l HyperlipidemiaReported by PatientHPIFor duration, patient reportschronic. For control, patient reportsnot at goal. For adherence to treatment plan, patient reportsdoes not follow recommended dietanddoes not exercisebut reportstakes medications as prescribed. For complications, patient reportscoronary artery diseaseandcardiovascular disease. For risk factors, patient reportshypertension,obesity, low hdl level, andconsumption of saturated fats and trans-fatty acids. Coronary Artery Disease F/UReported by PatientHPIFor context, patient reportscontrolled hypertensionandusing phosphodiesterase type 5 inhibitor (sildenafil, tadalafil, avanafil, or vardenafil)but reportsnon-smoker. For associated symptoms, patient reportsback pain with exertionbut reportsno chest pain,no neck pain,no left arm pain,no dyspnea with exertion,no diaphoresis,no nausea,no stress,no jaw pain, andno dizziness. For severity, patient reportssymptoms are improving,no chest discomfort with daily activities, andhas not used nitroglycerin. For treatment, patient reportsadheres to medication therapiesanddoes not adhere to lifestyle changes. Hypertension F/UReported by PatientHPIFor lifestyle, patient reportsnot exercising regularlyanddoes not adhere to low sodium diet. For medications, patient reportstaking medications as directedandno side effects from medication. For associated symptoms, patient reportsno dizziness,no lightheadedness,no chest pain,no shortness of breath,no palpitations,no edema,no calf pain with exertion, andno headache.ROS as noted in the HPI Had successful Watchman procedure this spring for AFIB. Is scheduled to have epidural injections for LBP. He also has CAD, stable carotid stenosis, and gout. GERD stable on PPI. He is followed by [facility] and Urology at and [facility] for chronic low back pain. Shakira Todd APRN [address] [place], [address], [employer] 04/17/2024 19:39:23 4 text/htm l ROS as noted in the HPI Here for follow up on prediabetes. Last A1c was 6.1. He has gained 10 pounds. He eats an unhealthy diet and does not exercise. He is angry and argumentative today because my stupid insurance is making me do worthless physical therapy before they will pay for a MRI for my back pain and they wont pay for the gel injections for my knees.BP elevated this AM - he has not taken his BP meds yet this AM as he stayed at [facility] last PM and did not take his meds with him. Shakira Todd APRN [address] [place], [address], [employer] 06/28/2024 15:18:43
[2025-07-16 23:15] VITALS: PULSE 75; RESP 18; O2SAT 96
[2025-07-16 23:30] VITALS: BP 147/71
[2025-07-16 23:35] LABS: Troponin I < 0.01 ng/ml (0.00-0.034)
[2025-07-16] MEDS: BENZONATATE 100MG CAPSULE 100 MG PO (23:54)
[2025-07-17] VITALS: BP 133/71; PULSE 68; RESP 27; O2SAT 96
[2025-07-17 00:48] VITALS: BP 139/74; PULSE 81; RESP 20; TEMP 36.8; O2SAT 96
[2025-07-17 01:49] LABS: Coronavirus 19, PCR Detected (NotDetected)
--- NOTE | 2025-07-17 22:34 | ECG_ITS ---
APPROVED REPORT Exam: Resting ECG HR:81 bpm ECG Measurements Heart Rate 81 AXES VA 160 P 31 QRSd 84 QRS 108 QT 356 T -12 QTc 393 Conclusion SINUS RHYTHM RIGHT AXIS DEVIATION [QRS AXIS > 100] NONSPECIFIC ST & T-WAVE ABNORMALITY ABNORMAL ECG UNCONFIRMED REPORT Electronically signed by : GILBERTO NAJERA, 07/18/2025 05:48:27
== END 2025-07-17 00:56 | disposition home or self-care (01) ==
PROVIDERS: Student in an Organized Health Care Education/Training Program; Emergency Provider Emergency Medicine; PCP Internal Medicine
DX: U07.1 COVID-19 (principal); R06.02 Shortness of breath; R53.81 Other malaise
CPT/HCPCS: 71046; 80053; 82550; 83690; 84484; 85025; 87631; 93005; 99284; 99285

== ENCOUNTER 2025-08-21 10:31 | Outpatient (CLI) | payer BC, SELFPAY ==
[2025-08-21 10:35] LABS: Immunoglobulin A, Qn, Serum ND
--- OUTSIDE RECORDS SUMMARY | 2025-08-21 10:45 | XMS_ITS | Encounter Summary ---
Author Organization [employer] ([place], [place], [place], [place], [place]) Address [address] [place] [address] Care Team Providers Care Seed Technician Name Role Phone Unavailable Primary Care Provider Unavailabl e Encounter Details Date Type Department Care Team (Late st Contact Info) Description 12/20/2020 Transcribed Document [facility] [place] Medicine [address] [place] [address] ProviderStan MD [address] [place] [address] Social History Tobacco Use Types [...] Finalized Date/Time: 12/21/20 06:02:45 Pt. Name: DAYANARA TYSON MORGAN EllingtonB./Sex: 1965 Male Med Rec #: [id number] Physician: JOHN TRINH MD Financial #: [id number] Pt. Type: O Room/Bed: Admit/Disch: 12/20/20 04:08:00 - [place] [facility] Case Times Entry 1 In Preop 12/20/20 07:40:00 Ready for Holding n/a Room Patient Ready for 12/20/20 09:30:00 Surgery Patient Out of Preop 12/20/20 15:32:00 Patient Out of n/a Holding Room Last Modified By: Shaye Rothman RN 12/21/20 06:02:44 [facility] PreOp Case Times Audit 12/21/20 06:02:44 Stone Setter Apprentice: BAUTISTA Modifier: FATUMA <+> 1 Patient Out of Preop Finalized By: Shaye Rothman RN Document Signatures Signed By: Shaye Rothman RN 12/21/20 06:02 documented in this encounter Plan of Treatment Not on file documented as of this encounter Visit Diagnoses Not on filedocumented in this encounter
--- OUTSIDE RECORDS SUMMARY | 2025-08-21 10:45 | XMS_ITS | Encounter Summary ---
Author Organization [employer] ([place], [place], [place], [place]) Address [address] [place] [address] Care Team Providers Care Wet Washer Machine Name Role Phone Unavailable Primary Care Provider Unavailabl e Encounter Details Date Type Department Care Team (Late st Contact Info) Description 12/03/2020 Transcribed Document [facility] [place] Family Medicine Counts include 234 beds at the [facility] [place] [address] ProviderStan MD [address] [place] [id number] Social History Tobacco Use Types Packs/Day Years [...] Complaint Neck Pain Primary Care Provider NASREEN PINTO NP-FAM History of Present Illness This patient is [...] Appearance CLEAR2 12/03/2020 10:35 EDT Urine Specific [place] 1.020 12/03/2020 10:35 EDT Urine pH Dipstick [...]
--- OUTSIDE RECORDS SUMMARY | 2025-08-21 10:45 | XMS_ITS | Encounter Summary ---
Author Organization [employer] ([place], [place], [place], [place], [place]) Address [address] [place] [address] Care Team Providers Care Oven Technician Name Role Phone Unavailable Primary Care Provider Unavailabl e Encounter Details Date Type Department Care Team (Late st Contact Info) Description 12/20/2020 Transcribed Document [facility] [place] [facility] [place] [address] ProviderStan MD [facility] [place] [id number] Social History Tobacco Use Types Packs/Day Years [...] cervical discectomy and fusion C5-C6, CPT code 70978. 2. Use of biomechanical cages interbody device, CPT code 42774. NEUROSURGERY RESEARCH DIRECTOR: Shana. COMPLICATIONS: None. SPECIMENS: None. IMPLANTS: Jass/K2M Monona stand-alone device size 8 mm interbody spacer with 14 mm screws x3, and 2 mL of demineralized bone matrix putty. DESCRIPTION OF PROCEDURE: Patient was identified in the preoperative holding area at [facility] and transported to the operating room under [...] space and we were able to place Candler pins at C5 and C6 and distracted [...] and placed 2 screws up and 1 warrant server into the vertebral bodies. We locked the locking mechanism on the anterior aspect on the stand-alone device. We took final x-rays, which were found to be appropriate so were motor-evoked potentials. We copiously irrigated the wound and closed the wound in layered fashion. The patient tolerated the procedure well. /[id number] Jamar Johnson MD JR/JORGE L / / MODL /[id number] documented in this encounter Plan of Treatment Not on file documented as of this encounter Visit Diagnoses Not on filedocumented in this encounter
--- OUTSIDE RECORDS SUMMARY | 2025-08-21 10:45 | XMS_ITS | Encounter Summary ---
Author Organization [employer] ([place], [place], [place], [place], [place]) Address [address] [place] [address] Care Team Providers Care Perfect Binder Feeder Offbearer Name Role Phone Unavailable Primary Care Provider Unavailabl e Encounter Details Date Type Department Care Team (Late st Contact Info) Description 12/20/2020 Transcribed Document [facility] [place] [address] [place] [address] ProviderStan MD [address] [place], [place] [id number] Social History Tobacco Use Types Packs/Day Years [...] Stan ProviderMD - 12/20/2020 7:29 PM CDT [place] [id number] DAYANARA BRAVO TERESITA :1965 Visit Time:12/20/2020 What to do [...] Call for follow up appointment Where: [address] [facility], [address] [place] [address]- Medications What How Much When Instructions Next [...] activities are safe for you. ??? Take rumc-rhx-vigqdhu and prescription medicines only as told by [...] provider. Document Revised: 08/13/2018 Document Reviewed: 03/26/2018 [employer] Patient Education ?? 2020 [employer] Anterior Cervical Diskectomy and Fusion, Care [...] and water are not available, use hand roustabout pusher. ? Change your dressing as told by [...] Managing pain, stiffness, and swelling ??? Take gbyl-nxy-jwtcfpp and prescription medicines only as told by [...] keep your urine pale yellow. ? Take oytt-hid-mpdnkuc or prescription medicines. ? Eat foods that [...] provider. Document Revised: 05/05/2019 Document Reviewed: 05/05/2019 [employer] Patient Education ?? 2020 [employer] Emergency Awareness and Preventative Care STROKE [...] Assistance with quitting is available by contacting 4-211-QMKBNOW. This is a free resource providing counseling, [...] ) Urine Bilirubin Dipstick: Negative Urine Specific [place]: 1.020 -- Normal range between ( 1.005 [...] was given the opportunity to ask questions. Patient/Clinical Rehab Liaison Name: Patient/Clinical Rehab Liaison Signature: Relationship to Patient: Clinician/Hospital Clinical Rehab Liaison Signature: Date: documented in this encounter Plan of Treatment Not on file documented as of this encounter Visit Diagnoses Not on filedocumented in this encounter
--- OUTSIDE RECORDS SUMMARY | 2025-08-21 10:45 | XMS_ITS | Encounter Summary ---
Author Organization [facility] Address [address] [place] [address] Care Team Providers Care Casino Floor Supervisor Name Role Phone Shakira Todd APRN Primary Care Provider [phone] Feng Garcia MD Unavailable Raf Rocha DO Primary Care Provider [phone] Encounter Details Date Type Department Care Team (Late st Contact Info) Description 08/28/2021 Orders Only External Location [address] [place] [phone] Provider, External Social History Tobacco Use Types Packs/Day Years Used Date Smoking Tobacco: Never Sex and Gender Information Value Date Recorded Sex Assigned at Male 03/13/2025 5:47 PM EDT Legal Sex Male 8:19 PM EDT Gender Identity Not on file Sexual Orientation Not on file documented as of this encounter Plan of Treatment Upcoming Encounters Date Type Department Care Team (Late st Contact Info) Description 01/18/2026 8:40 AM EDT Appointment [facility] Radiology [address] [place] [address] 01/18/2026 10:45 AM EDT Office Visit [place] [facility] [address] [place] [address] Tyler Garcia MD [address] [place] [address] documented as of this encounter Procedures Procedure [...] documented as of this encounter Care Teams Casino Floor Supervisor Relationship Specialty Start Date End Date Shakira Todd APRN [address] PCP - General 01/04/21 11/23/24 Raf Rocha DO [address] [place] [address] [place] [address] PCP - General 11/24/24 Feng Garcia MD [address] [facility] [address] [place] [address] Surgeon Urology 11/24/24 documented as of this encounter
--- OUTSIDE RECORDS SUMMARY | 2025-08-21 10:45 | XMS_ITS | Encounter Summary ---
Author Organization [employer] ([place], [place], [place], [place], [place]) Address [address] [place] [address] Care Team Providers Care Fish Smoker Name Role Phone Unavailable Primary Care Provider Unavailabl e Encounter Details Date Type Department Care Team (Late st Contact Info) Description 11/27/2020 Transcribed Document [facility] Family Medicine [address] [place] [address] ProviderStan MD [address] [place], [place] [address] Social History Tobacco Use Types Packs/Day Years [...] 1 Health Plan: ANTHEM HMOPPO Policy Number: [id number] Authorization Number: Insurance Primary Name : ANTHEM HMOPPO Policy Number: [id number] Authorization Status-Primary : Opo status approv Authorized Service Begin Date-Primary : 12/20/2020 EDT Observation Authorization Nbr-Primary : [id number] Authorization Comments-Primary : [place] approved per letter for outpt Historical Authorization Comments-Primary : No Authorization Comments Found ALAB WHEELER RN-Utilization Review - 11/27/2020 10:29 EDT documented in this encounter Plan of Treatment Not on file documented as of this encounter Visit Diagnoses Not on filedocumented in this encounter
--- OUTSIDE RECORDS SUMMARY | 2025-08-21 10:45 | XMS_ITS | Clinical Summary ---
Author Organization [employer] ([place], [place], [place], [place], [place]) Address [address] [place] [address] Care Team Providers Care Python Consultant Name Role Phone Unavailable Primary Care Provider [...]
--- OUTSIDE RECORDS SUMMARY | 2025-08-21 10:45 | XMS_ITS | Clinical Summary ---
Author Organization [facility] Address [address] [place] [address] Care Team Providers Care Solar Manufacturer'S Representative Name Role Phone Unavailable Primary Care Provider Unavailabl e Allergies Active Allergy Reactions Criticality Noted Date Comments Ghzetqd-Hct-Inf Reductase Inhibitors Other (See Comments) 11/02/2022 Cramping [...] to complete this topic Insurance [employer] [facility]
--- OUTSIDE RECORDS SUMMARY | 2025-08-21 10:45 | XMS_ITS | Encounter Summary ---
Author Organization [facility] Address [address] [place] [address] Care Team Providers Care Broomcorn Sorter Name Role Phone Feng Garcia MD Unavailable Raf Rocha DO Primary Care Provider [phone] Reason for Referral * Imaging (Routine) - Pending Review Specialty Diagnoses / Procedures Referred By Salvatore healy Referred To Contact Radiology Diagnoses Left renal mass Procedures CT Chest w IV Contrast Feng Garcia MD [address] [address] Phone: tel: fax: Referral ID Status Reason Start Date Expiration Date V isits Requested Visits Authorized [id number] Pending Review 06/24/2025 12/24/2026 1 1 * Imaging (Routine) - Pending Review Specialty Diagnoses / Procedures Referred By Salvatore healy Referred To Contact Radiology Diagnoses Left renal mass Procedures CT Renal Mass w and wo IV Contrast Feng Garcia MD [address] [address] Phone: tel: fax: Referral ID Status Reason Start Date Expiration Date V isits Requested Visits Authorized [id number] Pending Review 06/24/2025 12/24/2026 1 1 Encounter Details Date Type Department Care Team ([facility] st Contact Info) Description 06/24/2025 Results Follow-Up [facility] Urology [address] [place] [address] Feng Garcia MD [address] [place] [address] Social History Tobacco Use Types Packs/Day Years [...] drink first t laly in the morning (EYE-ORDNANCE OFFICER) to steady your nerves or to [...] Encounters Date Type Department Care Team (Late Contact Info) Description 01/18/2026 8:40 AM EDT Appointment [facility] Radiology [address] [place] [address] 01/18/2026 10:45 AM EDT Office Visit [place] [facility] [address] [place] [address] Tyler Garcia MD [address] [place] [id number] [place] [address] Scheduled Orders Name Type Priority Associated Diagnoses Orde r Schedule CT Renal Mass w and wo IV Contrast Imaging Routine Left renal mass Expected: 12/22/2025 (Approximate), Expires: 12/22/2026 CT Chest w IV Contrast Imaging Routine Left renal mass Expected: 12/22/2025 (Approximate), Expires: 12/22/2026 Basic Metabolic Panel, Plasma Lab Routine Left renal mass Expected: 12/22/2025 (Approximate), Expires: 12/22/2026 documented as of this encounter Goals Goal Patient Goal Type Associated Problems Recent Progress Patient-Stated? Author Autogenera tavia Goal Care Plan Autogenerated Problem No SyedDimple documented as of this encounter Visit Diagnoses Diagnosis Left renal mass- Primary Unspecified disorder of kidney and ureter documented in this encounter Additional Health Concerns [...] documented as of this encounter Care Teams Broomcorn Sorter Relationship Specialty Start Date End Date Raf Rocha DO [address] [place] [address] [address] [place] [address] PCP - General 11/24/24 Feng Garcia MD [id number] [place] [address] Surgeon Urology 11/24/24 documented as of this encounter
--- OUTSIDE RECORDS SUMMARY | 2025-08-21 10:45 | XMS_ITS | Clinical Summary ---
Author Organization [facility] Address [address] [place] [address] Phone Care Team Providers Care Aircraft Painter Name Role Phone Pamela GUARDADO, Lauren Ventura [phone] [ ] Conditions or Problems Problem Name Problem Code Onset Date Status Entry Date Provider Comment Standard Description Annotate CHEST PAIN, HX OF; POST OP Z86.79 (ICD-10-CM ) 09/27 Active 09/29 Lauren Santiago MD Personal history of other diseases of the circulatory system OBESITY 787413940 (SNOMED CT) 09/27 Active 09/27 Loni Catalan CHRONIC OSTEOMYELITI S RT FOOT M86.679 (ICD-10-CM ) 09/25 Active 09/25 Cinthya Cavanaugh Other chronic osteomyelitis, unspecified ankle and foot HYPERTENSION , CONTROLLED 78336439 (SNOMED CT) 09/17 Resolved 09/17 Dimple Duque Hypertensive disorder ACTIVITIES INVOLVING BUILDING AND CONSTRUCTION NAIL IN FOOT Y93.H3 (ICD-10-CM ) 09/25 Active 09/25 Dimple Duque Activity, building and construction CHRONIC OSTEOMYELITI S, FOOT 328798624 (SNOMED CT) 09/25 Correction 09/25 Dimple Duque Chronic osteomyelitis of foot ACUTE OSTEOMYELITI S: RT FOOT/TOE M86.179 (ICD-10-CM ) 09/14 Inactive 09/14 Dimple Duque Other acute osteomyelitis, unspecified ankle and foot NEPHROLITHIA SIS, URIC ACID 382167544 (SNOMED CT) 09/17 Active 09/21 Lauren Santiago MD Uric acid renal calculus INJURY OTHER&UNSPEC IFIED FOOT/ RIGHT FOOT PUNCTURE 959.7 (ICD-9-CM) 09/17 Active 09/21 Lauren Santiago MD Other and unspecified injury to knee, leg, ankle, and foot HYPERTENSION , CONTROLLED 15507328 (SNOMED CT) 09/17 Removed 09/17 Lauren Santiago MD Hypertensive disorder ACUTE OSTEOMYELITI S: RT FOOT/TOE M86.179 (ICD-10-CM ) 09/14 Removed 09/14 Dee Pires Other acute osteomyelitis, unspecified ankle and foot Medications Medication Instructions Start Date Stop Date Generic Name [facility] Provider ASPIRIN 81 MG TBEC ASPIRIN 50638931362 Loni Roldan PERCOCET TABS 09/27 OXYCODONE-ACETAMI NOPHEN TABS 65516395617 Loni Roldan ADOXA 100 MG ORAL TABLET twice daily for 10 days DOXYCYCLINE MONOHYDRATE 58660214910 Loni Roldan LEVAQUIN 750 MG ORAL TABLET 09/27 LEVOFLOXACIN 34519076138 Loni Roldan LEVOFLOXACIN 250 MG TABS 09/26 LEVOFLOXACIN 81222120394 Moy Larson LEVAQUIN 750 MG ORAL TABLET 0 11/22 LEVOFLOXACIN 20231404693 Moy Larson PERCOCET TABS 0 11/22 OXYCODONE-ACETAMI NOPHEN TABS 52951059930 Moy Larson LORTAB TABLET HYDROCODONE-ACETA MINOPHEN TABS 33298011124 Moy Larson PHENERGAN SOLN PROMETHAZINE HCL SOLN 96498254947 Moy Larson TRIAMCINOLONE ACETONIDE 0.5 % CREA TRIAMCINOLONE ACETONIDE 28541236741 Lauren Santiago MD CYCLOBENZAPRINE HCL TABLET CYCLOBENZAPRINE HCL TABS 81984151057 Lauren Santiago MD LEVOFLOXACIN 250 MG TABS 09/26 LEVOFLOXACIN 35138733724 Lauren Santiago MD BENAZEPRIL HCL 20 MG TABS BENAZEPRIL HCL 07015005537 Heather G ALLOPURINOL 300 MG TABS ALLOPURINOL 92602636228 Heather G Medications Administered No information available. [...] Procedures Code Procedure Name Date Entry Date CPT-78779 CMP CPT-49261 C- reactive protein CPT-51846 CBC with Differential 09/17 Vital Signs Date [...]
--- OUTSIDE RECORDS SUMMARY | 2025-08-21 10:45 | XMS_ITS | Encounter Summary ---
Author Organization [employer] ([place], [place], [place], [place], [place]) Address [address] [place] [address] Care Team Providers Care Jewel Lathe Operator Name Role Phone Unavailable Primary Care Provider Unavailabl e Encounter Details Date Type Department Care Team (Late st Contact Info) Description 12/20/2020 Transcribed Document [facility] [place] [address] [place] [address] ProviderStan MD [address] [place] [address] Social History Tobacco Use Types [...] Stan ProviderMD - 12/20/2020 4:19 PM CDT [facility] Main OR PACU Summary Primary Physician: JOHN TRINH MD Finalized Date/Time: 12/20/20 19:58:49 Pt. Name: BRAVO DAYANARALuz MORA D.O.B./Sex: 1965 Male Med Rec #: [id number] Physician: JOHN TRINH MD Financial #: [id number] Pt. Type: O Room/Bed: Admit/Disch: 12/20/20 04:08:00 - Institution: [facility] Main [place] PACU Case Times Entry 1 In PACU I 12/20/20 18:32:00 Ready for PACU 12/20/20 19:58:00 Discharge Discharge from PACU 12/20/20 19:58:00 I Last Modified By: ESTHER Graham 12/20/20 19:58:38 [facility] Main OR PACU Case Times Audit 12/20/20 19:58:38 Acute Care Registered Nurse: GAEL Modifier: GAEL <+> 1 Ready for PACU Discharge <+> 1 Discharge from PACU I Finalized By: ESTHER Graham Document Signatures Signed By: ESTHER Graham 12/20/20 19:58 Electronically signed by [facility] Conversion Business Planning Director Cerner at 12/08/2022 9:37 AM CDT documented in this encounter Plan of Treatment Not on file documented as of this encounter Visit Diagnoses Not on filedocumented in this encounter
--- OUTSIDE RECORDS SUMMARY | 2025-08-21 10:45 | XMS_ITS | Encounter Summary ---
[facility] Address [address] [place] [address] Care Team Providers Care Business Communications Instructor Name Role Phone Rolanda Acosta THANH Primary Care Provider [phone] Encounter Details Date Type Department Care Team (Late st Contact Info) Description 09/04/2013 Conversion Encounter [facility] HISTORICAL CONV [address] [place] [address] Interface, See Report Social History [...] PM EST Clinical Report - Physicians/Mid Levels [facility] Emergency Department [address] [place] [id number] 09/04/2013 Patient: DAYANARA TYSON Sex: M : [...] making process. Foot 3V: (THOMAS: 09/04/2013 19:48)( [facility] 09/04/2013 19:48) New Order CRP: (THOMAS: 09/04/2013 19:20)( [facility] 09/04/2013 19:48) Final results Test Result Flag Units (Reference) CRP 8.700 mg/L (0.000-10.000) Sed Rate: (THOMAS: 09/04/2013 19:20)( [facility] 09/04/2013 19:52) Final results Test Result Flag Units (Reference) Sed Rate 13 mm/hr (0-15) CMP: (THOMAS: 09/04/2013 19:20)( [facility] 09/04/2013 19:55) Final results Test Result Flag [...] (1.50-8.30) Abs Lymph 2.86 K/mcL (0.60-4.80) Abs Miner 0.72 K/mcL (0.00-1.00) Abs Eos 0.29 K/mcL [...] Christopher Rojas MD, Cardiovascular Disease, , [address] [facility], , [place], [facility] Follow up Thursday. Call for an appointment. [...] or dislocation. FAX TO: A E: 09/05/2013 Cdl InstructorDiann Cottrell Radiologist- COLETTE RODRIGUEZ Releasing RadiologistDiann RODRIGUEZ [...] or dislocation. FAX TO: A E: 09/05/2013 Cdl Instructor- KEESHA Cottrell Radiologist- COLETTE RODRIGUEZ Releasing RadiologistDiann RODRIGUEZ Released Date Time- 09/05/13 1704 Feng Gramajo APRN IMG DIAGNOSTIC IMAGING ORDERABL ES Final Result * C-reactive protein (09/04/2013 7:20 PM EST) Pathologist [facility] C-Reactive Protein 8.700 0.000 - 10.000 mg/L [facility] Blood specimen (specimen) 09/04/2013 7:20 PM EST [facility] - 09/04/2013 7:48 PM EST Specimen Type: Serum 1 Feng Gramajo [facility] LAB BLOOD ORDERABLES Final Resu lt Performing Organization Address [facility] Co de Phone Number [facility] [address] [place] [address], * Sedimentation rate (09/04/2013 7:20 PM EST) Sed Rate 13 0 - 15 mm/hr [facility] Blood specimen (specimen) 09/04/2013 7:20 PM EST [facility] - 09/04/2013 7:52 PM EST Specimen Type: Blood Feng Gramajo [facility] LAB BLOOD ORDERABLES Final Resu lt Performing Organization Address [facility] de Phone Number [facility] [address] [place] [address], * (ABNORMAL) Comprehensive metabolic panel (09/04/2013 7:20 PM EST) Glucose 126(H) 70 - 100 mg/dL [facility] BUN 18 6 - 20 mg/dL [facility] Creatinine 1.0 0.6 - 1.3 mg/dL [facility] Sodium 140 136 - 145 mmol/L [facility] Potassium 4.4 3.4 - 5.4 mmol/L [facility] Chloride 106 98 - 107 mmol/L [facility] CO2 26 20 - 31 mmol/L [facility] Calcium 9.4 8.7 - 10.4 mg/dL [facility] Alkaline Phosphatase 66 25 - 100 Units/L [facility] AST (SGOT) 45(H) 8 - 33 Units/L [facility] ALT (SGPT) 73(H) 7 - 40 Units/L [facility] Total Bilirubin 0.4 0.3 - 1.2 mg/dL [facility] Total Protein 7.0 6.4 - 8.3 g/dL [facility] Albumin 4.1 3.4 - 4.8 g/dL [facility] eGFR 83 ml/min/1.7 32 [facility] Comment: DF by IF @ 09/04/2013 19:55 National Kid[employer] Guidelines Stage Description GFR 1 Normal or High 90+ 2 Mild decrease 60-89 3 Moderate decrease 30-59 4 Severe decrease 15-29 5 Kidney failure <15 Anion Gap 7 3 - 11 mmol/L [facility] Blood specimen (specimen) 09/04/2013 7:20 PM EST Narrative [facility] - 09/04/2013 7:55 PM EST Specimen Type: Blood Feng Gramajo [facility] LAB BLOOD ORDERABLES Final Resu lt Performing Organization Address City/State/[facility] [place] [address], * (ABNORMAL) CBC and Differential (09/04/2013 7:20 PM EST) WBC 6.66 3.50 - 10.80 [facility] RBC 5.04 4.20 - 5.76 [facility] Hemoglobin 15.6 13.1 - 17.5 g/dL [facility] Hematocrit 43.1 38.9 - 50.9 % [facility] MCV 85.5 80.0 - 99.0 fL [facility] MCH 31.0 27.0 - 31.0 pg [facility] MCHC 26.2(L) 32.0 - 36.0 g/dL [facility] RDW-CV 13.0 11.3 - 14.5 % [facility] Platelets 173 150 - 450 [facility] Neutrophils Absolute 2.73 1.50 - 8.30 [facility] Lymphocytes Absolute 2.86 0.60 - 4.80 [facility] Monocytes Absolute 0.72 0.00 - 1.00 [facility] Eosinophils Absolute 0.29 0.10 - 0.30 [facility] Basophils Absolute 0.03 0.00 - 0.20 [facility] nRBC 0.[facility] Neutrophil Rel % 40.9(L) 41.0 - 71.0 % [facility] Lymphocyte Rel % 42.9 24.0 - 44.0 % [facility] Monocyte Rel % 10.8 0.0 - 12.0 % [facility] Eosinophil Rel % 4.4(H) 0.0 - 3.0 % [facility] Basophil Rel % 0.5 0.0 - 1.0 % [facility] Immature Granulocyte Rel % 0.5 0.0 - 0.6 % [facility] Blood specimen (specimen) 09/04/2013 7:20 PM EST Narrative [facility] - 09/04/2013 8:41 PM EST Specimen Type: Blood Feng Gramajo APRN LAB BLOOD ORDERABLES Final Resu lt [facility] [address] [place] [address], * SCANNED EKG (09/04/2013) [facility] Onbase ECG ORDERABLES Final Result documented in this encounter Visit Diagnoses Not on filedocumented in this encounter Care Teams Business Communications Instructor Relationship Specialty Start Date End Date Rolanda Acosta APRN [address] [place] [address] PCP - General Family Medicine 02/18/16 documented as of this encounter
--- OUTSIDE RECORDS SUMMARY | 2025-08-21 10:45 | XMS_ITS | Encounter Summary ---
Author Organization [employer] ([place], [place], [place], [place], [place]) Address [address] [place] [address] Care Team Providers Care Incident Commander Name Role Phone Unavailable Primary Care Provider Unavailabl e Encounter Details Date Type Department Care Team (Late st Contact Info) Description 12/03/2020 Transcribed Document [facility] Family Medicine [facility] [place] [address] ProviderStan MD [address] [place], [place] [id number] Social History Tobacco Use Types Packs/Day Years [...] Source : Stated Height Entry Format : [place] Height, Feet : 5 ft(Converted to: 152 cm, 60 Inch) Height, Inches : 10 Inch(Converted to: 0 ft 10 Inch, 25.40 cm) Clinical Height : 177.8 cm Weight Source : Standing scale Weight Entry Format : [place] Clinical Dosing Weight : 106.82 kg Weight, Pounds : 235 lb Body Surface Area (BSA) : 2.24 m2 Body Mass Index : 33.8 kg/m2 (HI) [place] Body Weight : 72 kg Jalyn Virgen RN - 12/03/2020 11:07 EDT Health Histories Smoking Status : Never (less than 100 in lifetime; none in last 30 days) Smokeless Tobacco Status : Never Implant/Device Type, Logistics Coordinator and Model : stints both renal and carotid artery Jalny Virgen RN - 12/03/2020 11:07 EDT Social [...] Jalyn Virgen RN - 12/03/2020 11:07 EDT [place] Suicide Severity Rating Scale (C-SSRS) CSSRS Past [...] #2 Relationship : . Primary Language : Wallisian Communication Barrier : None Business Management Analyst Needed : No Jalyn Virgen RN - [...]
--- OUTSIDE RECORDS SUMMARY | 2025-08-21 10:45 | XMS_ITS | Encounter Summary ---
Author Organization [facility] Address [address] [place] [address] Care Team Providers Care Mobile Service Rv Technician Name Role Phone Shakira Todd APRN Primary Care Provider [phone] Feng Garcia MD Unavailable Raf Rocha DO Primary Care Provider [phone] Reason for Referral * Consultation (Routine) - Closed Specialty Diagnoses / Procedures Referred By Salvatore healy Referred To Contact Hand Surgery Diagnoses Traumatic partial tear of right biceps tendon, initial encounter [facility] [address] [place] [address] [facility] [address] [place] [address] Phone: tel: fax: Referral ID Status Reason Start Date Expiration Date Visits Re quested Visits Authorized [id number] Closed 09/03/2021 03/05/2023 1 1 Encounter Details Date Type Department Care Team (Late st Contact Info) Description 09/03/2021 Community Orders [facility] [address] [place] [address] Kevin Philip Traumatic partial tear of right [...] Appointment [facility] [address] [place] [address] 01/18/2026 10:45 AM EDT Office Visit [facility] [address] [place] [address] Tyler Garcia MD [address] [address] Scheduled Referrals Name Type Priority Associated Diagnoses [...] documented as of this encounter Care Teams Mobile Service Rv Technician Relationship Specialty Start Date End Date Shakira Todd APRN [id number] PCP - General 01/04/21 11/23/24 Raf Rocha DO [address] [place] [address] [address] [place] [address] PCP - General 11/24/24 Feng Garcia MD [address] [address] Surgeon Urology 11/24/24 documented as of this encounter
--- OUTSIDE RECORDS SUMMARY | 2025-08-21 10:45 | XMS_ITS | Encounter Summary ---
Author Organization [employer] ([place], [place], [place], [place], [place]) Address [address] [place] [address] Care Team Providers Care Steam Bone Press Tender Name Role Phone Unavailable Primary Care Provider Unavailabl e Encounter Details Date Type Department Care Team (Late st Contact Info) Description 12/20/2020 Transcribed Document [facility] Family Medicine [facility] [place] [address] ProviderStan MD [address] [place], [place] [id number] Social History Tobacco Use Types Packs/Day Years [...] activities are safe for you. ??? Take klwy-qug-cgoeull and prescription medicines only as told by [...] provider. Document Revised: 08/13/2018 Document Reviewed: 03/26/2018 [employer] Patient Education ? 2020 [employer] Anterior Cervical Diskectomy and Fusion, Care [...] and water are not available, use hand spinner frame. ? Change your dressing as told by [...] Managing pain, stiffness, and swelling ??? Take mjuc-fzc-lribdrc and prescription medicines only as told by [...] keep your urine pale yellow. ? Take wlkc-qgx-vganjes or prescription medicines. ? Eat foods that [...] provider. Document Revised: 05/05/2019 Document Reviewed: 05/05/2019 [employer] Patient Education ? 2020 [employer] documented in this encounter Plan of Treatment Not on file documented as of this encounter Visit Diagnoses Not on filedocumented in this encounter
--- OUTSIDE RECORDS SUMMARY | 2025-08-21 10:45 | XMS_ITS | Encounter Summary ---
Author Organization [facility] Address [address] [place] [address] Care Team Providers Care Transaction Manager Name Role Phone Feng Garcia MD Unavailable Raf Rocha DO Primary Care Provider [phone] Encounter Details Date Type Department Care Team (Late st Contact Info) Description 06/27/2025 Telephone [facility] [address] [place] [address] Feng Garcia MD [address] [place] [address] Social History Tobacco Use Types Packs/Day Years [...] drink first t laly in the morning (EYE-TRAVEL JOURNALIST) to steady your nerves or to get [...] encounter Miscellaneous Notes * Telephone Encounter - Blossom Ribeiro - 06/27/2025 8:38 AM EST 06/27/2025 Left a detailed voice message and asked about the scans asked if the patient is allergic to Ct Iv contrast or X -Ray Iodine. Asked the patient to call back at [phone]. KJa documented in this encounter Plan of Treatment Upcoming Encounters Date Type Department Care Team (Late st Contact Info) Description 01/18/2026 8:40 AM EDT Appointment [facility] [address] [place] [address] 01/18/2026 10:45 AM EDT Office Visit [place] [facility] [address] [place] [address] Tyler Garcia MD [address] [place] [address] documented as of this encounter Goals Goal Patient Goal Type Associated Problems Recent Progress Patient-Stated? Author Autogenera tavia Goal Care Plan Autogenerated Problem No Dimple Lynch documented as of this encounter Visit Diagnoses Not on filedocumented in this encounter Additional Health Concerns Active Problems Noted Date Diagnosed Date Autogenerated Problem 12/12/2024 Assessment Noted Time PHQ-9 Depression Total Score: 0 11/16/19 25 7:52 AM EDT A fall risk assessment has been complete d for the patient 01/30/2025 7:57 AM EDT A Body Mass Index follow-up plan has been documented for the patient 02/10/2025 9:32 AM EDT documented as of this encounter Care Teams Transaction Manager Relationship Specialty Start Date End Date Raf Rocha DO [address] [place] [address] [place] [address] PCP - General 11/24/24 Feng Garcia MD [address] [facility] [address] [place] [address] Surgeon Urology 11/24/24 documented as of this encounter
--- OUTSIDE RECORDS SUMMARY | 2025-08-21 10:45 | XMS_ITS | Encounter Summary ---
Author Organization [employer] ([place], [place], [place], [place], [place]) Address [address] [place] [address] Care Team Providers Care Building Admin Name Role Phone Unavailable Primary Care Provider Unavailabl e Encounter Details Date Type Department Care Team (Late st Contact Info) Description 12/20/2020 Transcribed Document [facility] [address] [place] [address] ProviderStan MD [address] [place], [place] [id number] Social History Tobacco Use Types Packs/Day Years [...] Source : Stated Height Entry Format : [place] Height, Feet : 5 ft(Converted to: 152 cm, 60 Inch) Height, Inches : 10 Inch(Converted to: 0 ft 10 Inch, 25.40 cm) Clinical Height : 177.8 cm Weight Source : Standing scale Weight Entry Format : [place] Clinical Dosing Weight : 106.82 kg Weight, Pounds : 235 lb Body Surface Area (BSA) : 2.24 m2 Body Mass Index : 33.8 kg/m2 (HI) [place] Body Weight : 72 kg ELKE COVARRUBIAS RN - 12/20/2020 9:23 EDT Health Histories Smoking Status : Never (less than 100 in lifetime; none in last 30 days) Smokeless Tobacco Status : Never Implant/Device Type, Copy Lathe Operator and Model : stints both renal and [...] No. (Last Updated: 12/20/2020 09:20:50 EDT by LEKE COVARRUBIAS RN) Infectious Disease History Has the [...] ELKE COVARRUBIAS RN - 12/20/2020 9:23 EDT [place] Suicide Severity Rating Scale (C-SSRS) CSSRS Past [...] #2 Relationship : . 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
--- OUTSIDE RECORDS SUMMARY | 2025-08-21 10:45 | XMS_ITS | Data Portability ---
Author Organization [facility] Address [address] [place] [address] Assessment Encounter Date Assessment Date Assessment LastModified by Organization Details LastModified Time 03/30/2024 03/30/2024 Plavix may be held for 5 days before epidural injection. [email or web address] Not available 04/17/2024 19:38:18 Plan of Treatment Reminders Order Date Submit Date Provider Last Modified By Organization Details Last Modified Time Details Appointments None recorded. Lab HbA1c (hemoglobin A1c), blood 2023 024 [email or web address] [facility], [address] [place] [address], [phone], 4 09:22:04 HbA1c (hemoglobin A1c), blood 2023 024 [facility], [address], [place], [address], 4 06:11:34 TSH, serum or plasma 2023 024 [email or web address], [address], [place], [address], 4 11:00:32 lipid panel, serum 2023 024 [facility], [address], [place], [address], 4 05:31:15 TSH, serum or plasma 2023 024 PRINCETON [email or web address], [address], [place], [address], 4 05:31:17 CMP, serum or plasma 2023 024 PRINCETON [email or web address], [address], [place], [address], 4 05:31:15 urinalysis complete, reflex culture 2023 024 PR[place]ETON [email or web address], [address], [place], [address], 4 05:31:16 HbA1c (hemoglobin A1c), blood 2022 023 [facility], [address] [place] [address], [phone], 3 09:30:36 Referral None recorded. Procedures None recorded. Surgeries None recorded. Imaging XR, ribs, unilateral 2023 024 PAULETTE Not available 4 11:27:05 XR, shoulder, 2 or more view 2023 024 PAULETTE Not available 4 11:26:05 XR, hip, unilateral, 2 or 3 view 2023 024 PAULETTE Not available 4 11:25:05 Medication Orders allopurinol 300 mg tablet 2023 024 [facility], [address] [place], [address], 4 14:17:16 clopidogrel 75 mg tablet 2023 024 [facility], [address] [place], [address], 4 14:17:19 rosuvastati n 40 mg tablet 2023 024 [facility] [address], [address] [place], [address], 4 14:17:18 amlodipine 2.5 mg tablet 2023 024 [facility] [address], [address] [place], [address], 4 14:17:19 pantoprazol e 40 mg tablet,rodolfo yed release 2023 024 [facility] [address] [place], [address], 4 14:17:20 benazepril 40 mg tablet 2023 024 [facility] [address], [address] [place], [address], 4 14:17:13 allopurinol 300 mg tablet 2023 024 [facility] [address], [address] [place], [address], 4 08:50:54 clopidogrel 75 mg tablet 2023 024 [facility] [address], [address] [place], [address], 4 08:50:53 rosuvastati n 40 mg tablet 2023 024 [facility] [address], [address] [place], [address], 4 08:50:53 pantoprazol e 40 mg tablet,rodolfo yed release 2023 024 [facility] [address], [address] [place], [address], 4 08:50:54 benazepril 40 mg tablet 2023 024 PAULETTE [facility] [address], [address] [place], [address], 08:50:52 Patient TargetsNo targets recorded. Patient InstructionsNo instructions recorded. Reason for Referral None Reported. Results Created Date Observation Date Name Description Value Unit Range Abnormal Flag Note LastModifiedBy Organization Detail LastModifiedTime 04/10/2004/10/2023 HbA1c (hemo globi n A1c), blood HbA1c 5.5 Not Available [address], [address], 04/10/2023 09:13:57 09/23/1909/24/2023 LIPID PANEL , STAND ALEJANDRA cholesterol, total 121 mg/dL <200 normal Not Available [email or web address] [address] [place], [address], 09/24/2023 07:12:51 09/23/19 24 09/24/2023 LIPID PANEL , STAND ALEJANDRA HDL cholesterol 32 mg/dL > or = 40 low Not Available [email or web address] [address] [place], [address], 09/24/2023 07:12:51 09/23/19 24 09/24/2023 LIPID PANEL , STAND ALEJANDRA triglyceride s 207 mg/dL <150 high If a non-f astin g speci men was colle cted, consi lucretia repea t trigl yceri de testi ng on a fasti ng speci men if clini debbie indic ated. Abhi kapoor et al. J. of Clin. Lipid ol. 2015; 9:129 -169. Not Available [email or web address] [address] [place], [address], 09/24/2023 07:12:51 09/23/19 24 09/24/2023 LIPID PANEL [...] 2061- 206 (http ://ed ucati on.Qu estDi ExactCost. com/f aq/FA Q164) Not Available [email or web address] [address] [facility], [place], [address], 09/24/2023 07:12:51 09/23/19 24 09/24/2023 LIPID PANEL , STAND ALEJANDRA chol/HDLC ratio 3.8 (calc ) <5.0 normal Not Available [email or web address] [address], [place], [address], 09/24/2023 07:12:51 09/23/1909/24/2023 LIPID PANEL , STAND ALEJANDRA non HDL cholesterol 89 mg/dL _(priya c) <130 normal For patie nts with diabe maritza plus 1 major ASCVD risk facto r, treat ing to a non-H DL-C goal of <100 mg/dL (LDL- C of <70 mg/dL ) is consi dered a thera peuti c optio n. Not Available [email or web address] [address], [place], [address], 09/24/2023 07:12:51 09/23/1909/24/2023 COMPR EHENS PETER METAB OLIC PANEL glucose 131 mg/dL 65-99 high Fasti ng refer ence inter rocío For someo ne witho ut known diabe maritza, a gluco se value >125 mg/dL indic ates that they may have diabe maritza and this shoul d be confi rmed with a follo w-up test. Not Available [facility] [address] [place], [address], 09/24/2023 07:12:52 09/23/19 24 09/24/2023 COMPR EHENS PETER METAB OLIC PANEL urea nitrogen (BUN) 17 mg/dL 7-25 normal Not Available [facility] [address] [place], [address], 09/24/2023 07:12:52 09/23/19 24 09/24/2023 COMPR EHENS PETER METAB OLIC PANEL creatinine 1.32 mg/dL 0.70-1 .30 high Not Available [facility] [address] [place], [address], 09/24/2023 07:12:52 09/23/19 24 09/24/2023 COMPR EHENS PETER METAB OLIC PANEL eGFR 63 mL/mi n/1.7 3m2 > or = 60 normal Not Available [facility] [address] [place], [address], 09/24/2023 07:12:52 09/23/19 24 09/24/2023 COMPR EHENS PETER METAB OLIC PANEL BUN/creatini ne ratio 13 (calc ) 6-22 normal Not Available [facility] [address] [place], [address], 09/24/2023 07:12:52 09/23/19 24 09/24/2023 COMPR EHENS PETER METAB OLIC PANEL sodium 141 mmol/ L 135-14 6 normal Not Available [email or web address] [address] [place], [address], 09/24/2023 07:12:52 09/23/19 24 09/24/2023 COMPR EHENS PETER METAB OLIC PANEL potassium 4.6 mmol/ L 3.5-5. 3 normal Not Available [facility] [address] [place], [address], 09/24/2023 07:12:52 09/23/19 24 09/24/2023 COMPR EHENS PETER METAB OLIC PANEL chloride 105 mmol/ L 98-110 normal Not Available [facility] [address] [facility] [place], [address], 09/24/2023 07:12:52 09/23/19 24 09/24/2023 COMPR EHENS PETER METAB OLIC PANEL carbon dioxide 29 mmol/ L 20-32 normal Not Available [facility] [address] [facility] [place], [address], 09/24/2023 07:12:52 09/23/19 24 09/24/2023 COMPR EHENS PETER METAB OLIC PANEL calcium 9.1 mg/dL 8.6-10 .3 normal Not Available [facility] [address] [facility] [place], [address], 09/24/2023 07:12:52 09/23/19 24 09/24/2023 COMPR EHENS PETER METAB OLIC PANEL protein, total 7.1 g/dL 6.1-8. 1 normal Not Available [facility] [address] [facility] [place], [address], 09/24/2023 07:12:52 09/23/19 24 09/24/2023 COMPR EHENS PETER METAB OLIC PANEL albumin 4.4 g/dL 3.6-5. 1 normal Not Available [facility] [address] [facility] [place], [address], 09/24/2023 07:12:52 09/23/19 24 09/24/2023 COMPR EHENS PETER METAB OLIC PANEL globulin 2.7 g/dL_ (calc ) 1.9-3. 7 normal Not Available [facility] [address] [facility], [place], [address], 09/24/2023 07:12:52 09/23/19 24 09/24/2023 COMPR EHENS PETER METAB OLIC PANEL albumin/glob ulin ratio 1.6 (calc ) 1.0-2. 5 normal Not Available [facility] [address] [facility] [place], [address], 09/24/2023 07:12:52 09/23/19 24 09/24/2023 COMPR EHENS PETER METAB OLIC PANEL bilirubin, total 1.0 mg/dL 0.2-1. 2 normal Not Available [facility] [address] [facility] [place], [address], 09/24/2023 07:12:52 09/23/19 24 09/24/2023 COMPR EHENS PETER METAB OLIC PANEL alkaline phosphatase 72 U/L 35-144 normal Not Available [facility] [address] [facility] [place], [address], 09/24/2023 07:12:52 09/23/19 24 09/24/2023 COMPR EHENS PETER METAB OLIC PANEL AST 23 U/L 10-35 normal Not Available [facility] [facility] [address] [facility] [place], [address], 09/24/2023 07:12:52 09/23/19 24 09/24/2023 COMPR EHENS PETER METAB OLIC PANEL ALT 21 U/L 9-46 normal Not Available [email or web address] [address] [facility] [place], [address], 09/24/2023 07:12:52 09/23/19 24 09/24/2023 URINA LYSIS , COMPL ETE W/REF JASVIR TO CULTU RE color YELLOW yellow normal Not Available [facility] [facility] [address] [facility] [place], [address], 09/24/2023 05:31:16 09/23/19 24 09/24/2023 URINA LYSIS , COMPL ETE W/REF JASVIR TO CULTU RE appearance CLEAR clear normal Not Available [facility] [address] [facility] [place], [address], 09/24/2023 05:31:16 09/23/19 24 09/24/2023 URINA LYSIS , COMPL ETE W/REF JASVIR TO CULTU RE specific gravity 1.014 1.001- 1.035 normal Not Available [facility] [address] [facility] [place], [address], 09/24/2023 05:31:16 09/23/19 24 09/24/2023 URINA LYSIS , COMPL ETE W/REF JASVIR TO CULTU RE pH < OR = 5.0 5.0-8. 0 normal Not Available [facility] [address] [facility] [place], [address], 09/24/2023 05:31:16 09/23/19 24 09/24/2023 URINA LYSIS , COMPL ETE W/REF JASVIR TO CULTU RE glucose NEGATI VE negati ve normal Not Available [facility] [address] [facility] [place], [address], 09/24/2023 05:31:16 09/23/19 24 09/24/2023 URINA LYSIS , COMPL ETE W/REF JASVIR TO CULTU RE bilirubin NEGATI VE negati ve normal Not Available [facility] [address] [facility] [place], [address], 09/24/2023 05:31:16 09/23/19 24 09/24/2023 URINA LYSIS , COMPL ETE W/REF JASVIR TO CULTU RE ketones NEGATI VE negati ve normal Not Available [facility] [address] [place], [address], 09/24/2023 05:31:16 09/23/19 24 09/24/2023 URINA LYSIS , COMPL ETE W/REF JASVIR TO CULTU RE occult blood NEGATI VE negati ve normal Not Available [facility] [address] [facility] [place], [address], 09/24/2023 05:31:16 09/23/19 24 09/24/2023 URINA LYSIS , COMPL ETE W/REF JASVIR TO CULTU RE protein NEGATI VE negati ve normal Not Available [facility] [address] [facility] [place], [address], 09/24/2023 05:31:16 09/23/19 24 09/24/2023 URINA LYSIS , COMPL ETE W/REF JASVIR TO CULTU RE nitrite NEGATI VE negati ve normal Not Available [facility] [address] [facility] [place], [address], 09/24/2023 05:31:16 09/23/19 24 09/24/2023 URINA LYSIS , COMPL ETE W/REF JASVIR TO CULTU RE leukocyte esterase 2+ negati ve abnormal Not Available [facility] [address] [facility] [place], [address], 09/24/2023 05:31:16 09/23/19 24 09/24/2023 URINA LYSIS , COMPL ETE W/REF JASVIR TO CULTU RE WBC > OR = 60 /hpf < or = 5 abnormal Not Available [facility] [address] [facility] [place], [address], 09/24/2023 05:31:16 09/23/19 24 09/24/2023 URINA LYSIS , COMPL ETE W/REF JASVIR TO CULTU RE RBC 0-2 /hpf < or = 2 normal Not Available [facility] [address] [facility] [place], [address], 09/24/2023 05:31:16 09/23/19 24 09/24/2023 URINA LYSIS , COMPL ETE W/REF JASVIR TO CULTU RE squamous epithelial cells NONE SEEN /hpf < or = 5 normal Not Available [facility] [address] [place], [address], 09/24/2023 05:31:16 09/23/19 24 09/24/2023 URINA LYSIS , COMPL ETE W/REF JASVIR TO CULTU RE bacteria NONE SEEN /hpf none seen normal Not Available [facility] [address] [place], [address], 09/24/2023 05:31:16 09/23/19 24 09/24/2023 URINA LYSIS , COMPL ETE W/REF JASVIR TO CULTU RE hyaline cast NONE SEEN /lpf none seen normal Not Available [facility] [address] [place], [address], 09/24/2023 05:31:16 09/23/19 24 09/24/2023 URINA LYSIS , COMPL ETE W/REF JASVIR TO CULTU RE note This urine was rony zed for the prese nce of WBC, RBC, bacte jaida, casts , and other forme d eleme nts. Only those eleme nts seen were repor tavia. Not Available [facility] [address] [place], [address], 09/24/2023 05:31:16 09/23/19 24 09/24/2023 REFLE XIVE URINE CULTU RE reflexive urine culture CULTU RE INDIC ATED - RESUL TS TO FOLLO W Not Available [facility] [address] [place], [address], 09/24/2023 05:31:17 09/23/19 24 09/24/2023 TSH W/REF JASVIR TO FT4 TSH w/reflex to FT4 3.10 mIU/L 0.40-4 .50 normal Not Available [facility] [address] [place], [address], 09/24/2023 05:31:17 09/23/19 24 09/24/2023 CULTU RE, URINE , ROUTI NE culture SEE NOTE Not Available [facility] [address], [place], [address], 09/24/2023 05:31:18 09/23/19 24 09/25/2023 CULTU RE, URINE , ROUTI NE culture, urine, routine SEE NOTE CULTU RE, URINE , ROUTI NE Micro Numbe r: [id number] Test Statu s: Final Speci men [...] alvaro d. Not Available [facility] [address], [place], [address], 09/25/2023 12:34:15 03/30/20 24 03/31/2024 TSH+F REE T4 TSH 1.320 uIU/m L 0.450- 4.500 normal Not Available [facility] ([facility]) [address] [place], [address], 03/31/2024 06:11:32 03/30/20 24 03/31/2024 TSH+F REE T4 T4,free(dire ct) 1.32 NG/dL 0.82-1 .77 normal Not Available [facility] ([facility]) [address] [facility], [place], [address], 03/31/2024 06:11:32 03/30/20 24 03/31/2024 CBC WITH DIFFE RENTI AL/PL ATELE T WBC 10.1 x10e3 /uL 3.4-10 .8 normal Not Available [facility] ([facility]) [address] [place], [address], 03/31/2024 06:11:32 03/30/20 24 03/31/2024 CBC WITH DIFFE RENTI AL/PL ATELE T RBC 4.55 x10e6 /uL 4.14-5 .80 normal Not Available [facility] ([facility]) [address] [facility], [place], [address], 03/31/2024 06:11:32 03/30/20 24 03/31/2024 CBC WITH DIFFE RENTI AL/PL ATELE T hemoglobin 14.3 g/dL 13.0-1 7.7 normal Not Available [facility] ([facility]) [address] [facility], [place], [address], 03/31/2024 06:11:32 03/30/20 24 03/31/2024 CBC WITH DIFFE RENTI AL/PL ATELE T hematocrit 42.5 % 37.5-5 1.0 normal Not Available [facility] ([facility]) [address] [place], [address], 03/31/2024 06:11:32 03/30/20 24 03/31/2024 CBC WITH DIFFE RENTI AL/PL ATELE T MCV 93 fL 79-97 normal Not Available [facility] ([facility]) [address] [place], [address], 03/31/2024 06:11:32 03/30/20 24 03/31/2024 CBC WITH DIFFE RENTI AL/PL ATELE T MCH 31.4 pg 26.6-3 3.0 normal Not Available [facility] ([facility]) [address] [place], [address], 03/31/2024 06:11:32 03/30/20 24 03/31/2024 CBC WITH DIFFE RENTI AL/PL ATELE T MCHC 33.6 g/dL 31.5-3 5.7 normal Not Available [facility] ([facility]) [address] [facility], [place], [address], 03/31/2024 06:11:32 03/30/20 24 03/31/2024 CBC WITH DIFFE RENTI AL/PL ATELE T RDW 13.5 % 11.6-1 5.4 Not Available [facility] ([facility]) [address] [facility], [place], [address], 03/31/2024 06:11:32 03/30/20 24 03/31/2024 CBC WITH DIFFE RENTI AL/PL ATELE T platelets 221 x10e3 /uL 150-45 0 normal Not Available [facility] ([facility]) [address] [facility], [place], [address], 03/31/2024 06:11:32 03/30/20 24 03/31/2024 CBC WITH DIFFE RENTI AL/PL ATELE T neutrophils 66 % not estab. normal Not Available [facility] ([facility]) [address] [facility], [place], [address], 03/31/2024 06:11:32 03/30/20 24 03/31/2024 CBC WITH DIFFE RENTI AL/PL ATELE T lymphs 21 % not estab. normal Not Available [facility] ([facility]) [address] [facility], [place], [address], 03/31/2024 06:11:32 03/30/20 24 03/31/2024 CBC WITH DIFFE RENTI AL/PL ATELE T monocytes 7 % not estab. normal Not Available [facility] ([facility]) [address] [facility], [place], [address], 03/31/2024 06:11:32 03/30/20 24 03/31/2024 CBC WITH DIFFE RENTI AL/PL ATELE T eos 4 % not estab. normal Not Available [facility] ([facility]) [address] [facility], [place], [address], 03/31/2024 06:11:32 03/30/20 24 03/31/2024 CBC WITH DIFFE RENTI AL/PL ATELE T basos 1 % not estab. normal Not Available [facility] ([facility]) [address] [facility], [place], [address], 03/31/2024 06:11:32 03/30/20 24 03/31/2024 CBC WITH DIFFE RENTI AL/PL ATELE T immature cells MEDIA DEVELOPER Not Available [facility] ([facility]) [address] [facility], [place], [address], 03/31/2024 06:11:32 03/30/20 24 03/31/2024 CBC WITH DIFFE RENTI AL/PL ATELE T neutrophils (absolute) 6.7 x10e3 /uL 1.4-7. 0 normal Not Available [facility] ([facility]) [address] [facility], [place], [address], 03/31/2024 06:11:32 03/30/20 24 03/31/2024 CBC WITH DIFFE RENTI AL/PL ATELE T lymphs (absolute) 2.2 x10e3 /uL 0.7-3. 1 normal Not Available [facility] ([facility]) [address] [place], [address], 03/31/2024 06:11:32 03/30/20 24 03/31/2024 CBC WITH DIFFE RENTI AL/PL ATELE T monocytes(ab solute) 0.7 x10e3 /uL 0.1-0. 9 normal Not Available [facility] ([facility]) [address] [place], [address], 03/31/2024 06:11:32 03/30/20 24 03/31/2024 CBC WITH DIFFE RENTI AL/PL ATELE T eos (absolute) 0.4 x10e3 /uL 0.0-0. 4 normal Not Available [facility] ([facility]) [address] [facility], [place], [address], 03/31/2024 06:11:32 03/30/20 24 03/31/2024 CBC WITH DIFFE RENTI AL/PL ATELE T baso (absolute) 0.1 x10e3 /uL 0.0-0. 2 normal Not Available [facility] ([facility]) [address] [facility], [place], [address], 03/31/2024 06:11:32 03/30/20 24 03/31/2024 CBC WITH DIFFE RENTI AL/PL ATELE T immature granulocytes 1 % not estab. Not Available [facility] ([facility]) [address] [facility], [place], [address], 03/31/2024 06:11:32 03/30/20 24 03/31/2024 CBC WITH DIFFE RENTI AL/PL ATELE T immature grans (abs) 0.1 x10e3 /uL 0.0-0. 1 Not Available [facility] ([facility]) [address] [facility], [place], [address], 03/31/2024 06:11:32 03/30/20 24 03/31/2024 CBC WITH DIFFE RENTI AL/PL ATELE T NRBC MEDIA DEVELOPER Not Available [facility] ([facility]) [address] [facility], [place], [address], 03/31/2024 06:11:32 03/30/20 24 03/31/2024 CBC WITH DIFFE RENTI AL/PL ATELE T hematology comments: MEDIA DEVELOPER Not Available [facility] ([facility]) [address] [facility], [place], [address], 03/31/2024 06:11:32 03/30/20 24 03/31/2024 COMP. METAB OLIC PANEL (14) glucose 126 mg/dL 70-99 above high normal Not Available [facility] ([facility]) [address] [place], [address], 03/31/2024 06:11:33 03/30/20 24 03/31/2024 COMP. METAB OLIC PANEL (14) BUN 17 mg/dL 6-24 normal Not Available [facility] ([facility]) [address] [facility] [place], [address], 03/31/2024 06:11:33 03/30/20 24 03/31/2024 COMP. METAB OLIC PANEL (14) creatinine 1.19 mg/dL 0.76-1 .27 normal Not Available [facility] ([facility]) [address] [facility] [place], [address], 03/31/2024 06:11:33 03/30/20 24 03/31/2024 COMP. METAB OLIC PANEL (14) eGFR 71 mL/mi n/1.7 3 >59 normal Not Available [facility] ([facility]) [address] [facility], [place], [address], 03/31/2024 06:11:33 03/30/20 24 03/31/2024 COMP. METAB OLIC PANEL (14) BUN/creatini ne ratio 14 9-20 normal Not Available [facility] ([facility]) [address] [facility] [place], [address], 03/31/2024 06:11:33 03/30/20 24 03/31/2024 COMP. METAB OLIC PANEL (14) sodium 141 mmol/ L 134-14 4 normal Not Available [facility] ([facility]) [address] [facility] [place], [address], 03/31/2024 06:11:33 03/30/20 24 03/31/2024 COMP. METAB OLIC PANEL (14) potassium 4.1 mmol/ L 3.5-5. 2 normal Not Available [facility] ([facility]) [address] [facility] [place], [address], 03/31/2024 06:11:33 03/30/20 24 03/31/2024 COMP. METAB OLIC PANEL (14) chloride 104 mmol/ L 96-106 normal Not Available [facility] ([facility]) [address] [place], [address], 03/31/2024 06:11:33 03/30/20 24 03/31/2024 COMP. METAB OLIC PANEL (14) carbon dioxide, total 22 mmol/ L 20-29 normal Not Available [facility] ([facility]) [address] [place], [address], 03/31/2024 06:11:33 03/30/20 24 03/31/2024 COMP. METAB OLIC PANEL (14) calcium 9.2 mg/dL 8.7-10 .2 normal Not Available [facility] ([facility]) [address] [place], [address], 03/31/2024 06:11:33 03/30/20 24 03/31/2024 COMP. METAB OLIC PANEL (14) protein, total 6.7 g/dL 6.0-8. 5 normal Not Available [facility] ([facility]) [address] [place], [address], 03/31/2024 06:11:33 03/30/20 24 03/31/2024 COMP. METAB OLIC PANEL (14) albumin 4.1 g/dL 3.8-4. 9 normal Not Available [facility] ([facility]) [address] [place], [address], 03/31/2024 06:11:33 03/30/20 24 03/31/2024 COMP. METAB OLIC PANEL (14) globulin, total 2.6 g/dL 1.5-4. 5 Not Available [facility] ([facility]) [address] [place], [id number], 03/31/2024 06:11:33 03/30/20 24 03/31/2024 COMP. METAB OLIC PANEL (14) bilirubin, total 0.7 mg/dL 0.0-1. 2 normal Not Available [facility] ([facility]) [address] [facility] [place], [address], 03/31/2024 06:11:33 03/30/20 24 03/31/2024 COMP. METAB OLIC PANEL (14) alkaline phosphatase 87 IU/L 44-121 normal Not Available [facility] [facility]) [address] [facility] [place], [address], 03/31/2024 06:11:33 03/30/20 24 03/31/2024 COMP. METAB OLIC PANEL (14) AST (SGOT) 16 IU/L 0-40 normal Not Available [facility] ([facility]) [address] [facility] [place], [address], 03/31/2024 06:11:33 03/30/20 24 03/31/2024 COMP. METAB OLIC PANEL (14) ALT (SGPT) 15 IU/L 0-44 normal Not Available [facility] ([facility]) [address] [facility] [place], [address], 03/31/2024 06:11:33 03/30/20 24 03/31/2024 LIPID PANEL cholesterol, total 145 mg/dL 100-19 9 normal Not Available [facility] ([facility]) [address] [place], [address], 03/31/2024 06:11:33 03/30/20 24 03/31/2024 LIPID PANEL triglyceride s 336 mg/dL 0-149 above high normal Not Available [facility] ([facility]) [address] [place], [address], 03/31/2024 06:11:33 03/30/20 24 03/31/2024 LIPID PANEL HDL cholesterol 28 mg/dL >39 below low normal Not Available [facility] ([facility]) [address] [facility], [place], [address], 03/31/2024 06:11:33 03/30/20 24 03/31/2024 LIPID PANEL VLDL cholesterol priya 53 mg/dL 5-40 above high normal Not Available [facility] ([facility]) [address] [facility], [place], [address], 03/31/2024 06:11:33 03/30/20 24 03/31/2024 LIPID PANEL LDL chol calc ([facility]) 64 mg/dL 0-99 Not Available [facility] ([facility]) [address] [facility], [place], [address], 03/31/2024 06:11:33 03/30/20 24 03/31/2024 LIPID PANEL LDL calc comment: MEDIA DEVELOPER Not Available [facility] ([facility]) [address] [facility], [place], [address], 03/31/2024 06:11:33 03/30/20 24 03/31/2024 HEMOG LOBIN A1C hemoglobin A1C 6.1 % 4.8-5. 6 above high normal Predi abete s: 5.7 - 6.4 Diabe maritza: >6.4 Glyce rocael contr ol for adult s with diabe maritza: <7.0 Not Available [facility] ([facility]) [address] [facility], [place], [address], 03/31/2024 06:11:33 06/28/20 24 06/28/2024 HbA1c (hemo globi n A1c), blood HbA1c 6.8 Not Available [address], [place], [address], 06/28/2024 09:15:06 04/02/2004/01/2023 CT, angio gram, chest , w/o contr ast No observ ation record ed. [facility] [address], [place], [address], 04/06/2023 08:52:33 04/02/20 23 04/01/2023 CT, abdom en + pelvi s, w/ contr ast No observ ation record ed. [address], [place], [address], 04/03/2023 10:19:59 04/02/20 23 04/02/2023 cardi ovasc ular stres s test, exerc ise, jen nuous elect rocar diogr aphic monit oring /phar macol ogica l stres s; with super visio n (PROC ) No observ ation record ed. [address], [place], [address], 04/06/2023 08:53:52 04/02/20 23 04/01/2023 elect rocar diogr am No observ ation record ed. [address], [place], [place], [address], 04/06/2023 08:53:20 04/06/20 23 04/06/2023 CT, abdom en + pelvi s, w/ contr ast No observ ation record ed. [address], [place], [place], [address], 04/07/2023 08:03:59 04/21/20 23 04/17/2023 home sleep study No observ ation record ed. [facility] [address] [facility] [address], [place], [address], 04/22/2023 11:00:54 05/11/20 23 05/11/2023 XR, chest No observ ation record ed. [address], [place], [place], [address], 05/11/2023 08:36:53 09/18/05/11/2023 elect edgar read am No observ ation record ed. [email or web address] [facility] [address], [place], [address], 05/12/2023 08:16:08 07/09/20 23 07/09/2023 gastr ic empty ing study (PROC ) No observ ation record ed. [email or web address] [facility] [address], [place], [address], 07/10/2023 09:20:41 07/17/20 23 07/17/2023 XR, knee, 3 view No observ ation record ed. [address], [place], [address], 07/20/2023 09:54:38 07/17/20 23 07/17/2023 XR, femur , 2 or more view No observ ation record ed. [address], [place], [address], 07/20/2023 09:54:19 07/17/20 23 07/17/2023 XR, knee, 3 view No observ ation record ed. [address], [place], [address], 07/20/2023 09:53:54 07/17/20 23 07/17/2023 XR, knee, 3 view No observ ation record ed. [address], [place], [address], 07/20/2023 09:53:34 08/19/20 23 08/19/2023 XR, knee No observ ation record ed. [address], [place], [address], 08/25/2023 10:28:32 08/19/20 23 08/19/2023 XR, knee No observ ation record ed. [facility] [address], [place], [address], 08/25/2023 10:28:08 09/23/19 24 XR, hip, unila [...] contr ast No observ ation record ed. [place] [id number] [facility] [place], [address], 10/03/2023 10:41:39 11/08/19 24 11/05/2023 elect rocar diogr am No observ ation record ed. [email or web address] [place] [id number] [facility] [address], [place], [address], 11/09/2023 08:37:59 01/11/20 24 10/02/2023 US, scrot um No observ ation record ed. [place] [id number] [facility], [place], [address], 01/11/2024 11:24:21 05/01/20 24 05/01/2024 CT, abdom en + pelvi s, w/ contr ast No observ ation record ed. [place] [id number] [facility], [place], [address], 05/01/2024 15:09:09 05/15/20 24 05/14/2024 CT, thigh , w/o contr ast No observ ation record ed. [email or web address] [place] [address], [address], 06/13/2024 11:09:11 05/15/20 24 05/14/2024 CT, lumba r spine , w/o contr ast No observ ation record ed. [place] [address], [address], 06/13/2024 11:08:57 05/15/20 24 05/14/2024 CT, abdom en + pelvi s, w/ contr ast No observ ation record ed. [place] [id number] [place], [address], 06/13/2024 11:08:15 11/07/19 25 11/06/2024 CT, angio gram, chest + abdom en, w/ contr ast No observ ation record ed. [place] [address], [place], [address], 11/06/2024 17:48:14 11/10/19 25 11/06/2024 elect edgar read am No observ ation record ed. [place] [address], [address], 11/09/2024 08:30:41 Result Notes None recorded. Problems Name Problem SNOMED Code Status Onset Date Resolution Date Notes Provider Name and Address Organization Details Recorded Time Generali zed anxiety disorder 10637266 Active 2016 Problem Code: F41.1; Problem Code Type: ICD-10; Not Available [facility] 2 22:41:03 Restless legs syndrome 25812933 Active 2016 Problem Code: G25.81; Problem Code Type: ICD-10; Not Available [facility] 22:41:03 Hyperten sive disorder 48399595 Active 2016 Problem Code: I10; Problem Code Type: ICD-10; Not Available [facility] 2 22:41:04 Benign essentia l hyperten gabriella 6641549 Active 2016 Problem Code: 401.1; Problem Code Type: ICD-9; Not Available [facility] 2 22:41:10 Dyspnea 670373129 Completed 201609/26/2016 Problem Code: R06.00; Problem Code Type: ICD-10; Not Available [facility] 2 22:41:11 Respirat ory symptom 429734603 Completed 201609/26/2016 Not Available [facility] 2 22:41:12 Large prostate 641442394 Active 2017 Problem Code: N40.0; Problem Code Type: ICD-10; Not Available [facility] 2 22:41:05 Diaphrag matic hernia 33396141 Completed 201709/06/2021 Problem Code: 553.3; Problem Code Type: ICD-9; Not Available [facility] 2 22:41:10 Low back pain 641285290 Completed 201709/06/2021 Problem Code: 724.2; Problem Code Type: ICD-9; Not Available [facility] 2 22:41:11 Benign prostati c hyperpla jimmie 718392192 Completed 201709/06/2021 Problem Code: 600.00; Problem Code Type: ICD-9; Not Available [facility] 2 22:41:12 Diaphrag matic hernia 00929573 Active 2017 Problem Code: K44.9; Problem Code Type: ICD-10; Not Available [facility] 2 22:41:04 Moderate major depressi on, single episode 04895380 Completed 201706/08/2020 Problem Code: F32.1; Problem Code Type: ICD-10; Not Available [facility] 2 22:41:03 Male erectile disorder Active 2017 Not Available [facility] 2 22:41:03 Chronic peripher al venous hyperten gabriella 217567655 Completed 201706/18/2018 Problem Code: I87.303; Problem Code Type: ICD-10; Not Available [facility] 2 22:41:04 Acute sinusiti s 82410667 Completed 201705/03/2018 Problem Code: J01.90; Problem Code Type: ICD-10; Not Available [facility] 2 22:41:04 Psychose xual dysfunct ion associat ed with inhibite d libido 924704639 Completed 201709/06/2021 Problem Code: 302.72; Problem Code Type: ICD-9; Not Available [facility] 2 22:41:10 Depressi ve disorder 83168797 Completed 201709/06/2021 Problem Code: 311; Problem Code Type: ICD-9; Not Available [facility] 2 22:41:10 Disorder of cardiova scular system 70895256 Completed 201706/18/2018 Problem Code: 459.9; Problem Code Type: ICD-9; Not Available [facility] 2 22:41:11 Benign cutaneou s vascular tumor Completed 201706/08/2020 Problem Code: D21.9; Problem Code Type: ICD-10; Not Available [facility] 2 22:41:03 Benign neoplasm of soft tissue 25967056 Completed 201709/06/2021 Problem Code: 215.8; Problem Code Type: ICD-9; Not Available [facility] 2 22:41:09 Atherosc lerosis of renal artery 22711334 Active 2017 Problem Code: I70.1; Problem Code Type: ICD-10; Not Available [facility] 2 22:41:04 Gallblad lucretia calculus with acute cholecys titis and no obstruct ion 314017839 Completed 201708/14/2018 Problem Code: K80.00; Problem Code Type: ICD-10; Not Available [facility] 2 22:41:08 Calculus of gallblad ulcretia with acute cholecys titis 03611028 Completed 201708/14/2018 Problem Code: 574.00; Problem Code Type: ICD-9; Not Available [facility] 2 22:41:11 Nystagmu s 239333 Completed 201806/08/2020 Problem Code: H55.00; Problem Code Type: ICD-10; Not Available [facility] 2 22:41:04 Pain of left elbow joint 66301143878 298971 Completed 201809/23/2022 Problem Code: M25.522; Problem Code Type: ICD-10; BEAU [place], [employer] 3 08:41:37 Low back pain 936450167 Active 2018 Problem Code: M54.5; Problem Code Type: ICD-10; Not Available [facility] 2 22:41:09 Body mass index 30+ - obesity 531938014 Completed 201807/31/2020 Problem Code: Z68.33; Problem Code Type: ICD-10; Not Available [facility] 2 22:41:13 Acute frontal sinusiti s 32242818 Completed 201906/08/2020 Problem Code: J01.10; Problem Code Type: ICD-10; Not Available [facility] 2 22:41:04 Choleste rol screenin g Completed 201906/08/2020 Not Available [facility] 2 22:41:07 Body mass index 30+ - obesity 491464444 Completed 201906/08/2020 Problem Code: Z68.32; Problem Code Type: ICD-10; Not Available [facility] 2 22:41:08 Epigastr ic hernia 788418020 Active 2019 Problem Code: K43.9; Problem Code Type: ICD-10; Not Available [facility] 2 22:41:04 Screenin g for malignan t neoplasm of colon Completed 201909/23/2022 BEAU ar[place]ula, [employer] 3 08:41:37 Hyperlip idemia 08111017 Active 2019 Problem Code: E78.5; Problem Code Type: ICD-10; Not Available [facility] 2 22:41:03 Pain of left hip joint 66219027047 9100 Completed 201906/08/2020 Problem Code: M25.552; Problem Code Type: ICD-10; Not Available [facility] 2 22:41:05 Abdomina l pain 32831260 Completed 201909/23/2022 Problem Code: R10.9; Problem Code Type: ICD-10; BEAU ar[place], [employer] 3 08:41:37 Body mass index 30+ - obesity 238191682 Active 2019 Problem Code: Z68.30; Problem Code Type: ICD-10; Not Available [facility] 2 22:41:08 Noncompl iance with dietary regimen 331527940 Active 2019 Problem Code: Z91.11; Problem Code Type: ICD-10; Not Available [facility] 2 22:41:09 Prostate specific antigen above referenc e range 584329811 Active 2019 Problem Code: R97.20; Problem Code Type: ICD-10; Not Available [facility] 2 22:41:12 Dysphagi a 43561933 Active 2019 Not Available [facility] 2 22:41:05 General examinat ion of patient Active 2019 Not Available [facility] 2 22:41:06 Cramp in lower limb associat ed with sleep 08939112030 4104 Completed 201903/17/2021 Problem Code: G47.62; Problem Code Type: ICD-10; Not Available [facility] 2 22:41:04 Dizzines s and giddines s 974240485 Completed 201909/23/2022 Problem Code: R42; Problem Code Type: ICD-10; BEAU ar[place]ula, [employer] 3 08:41:37 Pre-surg vianey evaluati on Completed 202009/23/2022 BEAU ar[place]ula, [employer] 3 08:41:37 Lacerati on of left ring finger 14685761530 987436 Active 2020 Not Available [facility] 2 22:41:06 Lacerati on of finger with foreign body 200397159 Completed 202009/06/2021 Problem Code: S61.227D ; Problem Code Type: ICD-10; Not Available [facility] 2 22:41:06 Dysuria 71426338 Active 2021 Problem Code: R30.0; Problem Code Type: ICD-10; Not Available [facility] 22:41:05 Bilatera l hearing loss 00585535 Active 2021 Not Available [facility] 22:41:04 Acute maxillar y sinusiti s 28844993 Completed 202109/23/2022 Problem Code: J01.00; Problem Code Type: ICD-10; BEAU ar[place]ula, [employer] 3 08:41:37 Type 2 diabetes mellitus without complica tion 741173181 Active 2023 Shakira Todd APRN [address] [place] [address], [address] , [employer] 4 09:21:56 Problem Notes None recorded. Procedures Surgical History Date Name Laterality Status Provider Name and Address Organization Details Recorded Time 09/10/19 24 procedure on heart completed Shakira Todd APRN [address] [place], [address], [employer] 09/23/2023 08:37:42 07/24/20 23 procedure on heart completed Miladyssohail Guerrero [employer] 09/23/2023 08:21:45 06/24/20 23 left atrial appendage closure completed Shakira Todd APRN [address] [place], [address], [employer] 06/26/2023 11:39:13 03/13/20 23 Prostate Surgery completed [employer] 03/20/2023 08:54:15 10/23/19 23 cystoscopic extraction of ureteric calculus without disintegration completed Shakira Todd APRN [address] [facility], [place], [address], [employer] 11/10/2022 17:51:39 Imaging Results None recorded. Procedure Notes None recorded. Medical Equipment None Reported. Allergies Allergen ID Allergen Name Allergen Category Reaction Reaction Severity Criticality Documentation Date Start Date Code Code System Note Provider Name and Address Organization Details Recorded Time 71766 Substance with sulfonami de structure and antibacte rial mechanism of action (substanc e) medicatio n itching Not available Not available 04/29/2022 52409 [address], [employer] 3 08:36:49 63163 amitripty line hydrochlo ride medicatio n other Not available Not available 04/29/2022 98772 8 RxNorm [address], [employer] 4 08:18:00 10989 Cymbalta medicatio n other Not available Not available 04/29/2022 11802 4 RxNorm [address] Cesar [address], [employer] 4 08:18:05 85581 atorvasta tin calcium medicatio n other Not available Not available 04/29/2022 76556 RxNorm [address] Cesar [address], [employer] 4 08:18:03 Medications Name Sig Start [...] Updated DateTime 4 172.72 cm 36.2 kg/m2 430451. 7 g 98 [degF] 60 /min 97 % 150/89 mm[Hg] 170/77 mm[Hg] 150/81 mm[Hg] Miladys Guerrero [employer] 4 08:23:48 Date Recorded Body height Body mass index (BMI) Body weight Body temperature Heart rate Oxygen saturation Systolic And Diastolic Provider Name and Address Organization Details Last Updated DateTime 3 172.72 cm 36 kg/m2 749578. 95 g 98.4 [degF] 48 /min 98 % 138/67 mm[Hg] [employer] 3 13:05:18 Date Recorded Body height Body mass index (BMI) Body weight Body temperature Heart rate Oxygen saturation Systolic And Diastolic Systolic And Diastolic Systolic And Diastolic Provider Name and Address Organization Details Last Updated DateTime 4 172.72 cm 36 kg/m2 177481. 39 g 97.8 [degF] 67 /min 97 % 148/53 mm[Hg] 146/71 mm[Hg] 146/70 mm[Hg] [employer] 4 13:51:10 Date Recorded Body height Body mass index (BMI) Body weight Body temperature Heart rate Oxygen saturation Systolic And Diastolic Provider Name and Address Organization Details Last Updated DateTime 3 172.72 cm 35.3 kg/m2 453602. 43 g 97.7 [degF] 62 /min 99 % 116/65 mm[Hg] [employer] 3 08:53:09 Date Recorded Body height Body mass index (BMI) Body weight Body temperature Heart rate Oxygen saturation Systolic And Diastolic Systolic And Diastolic Systolic And Diastolic Provider Name and Address Organization Details Last Updated DateTime 4 172.72 cm 37.6 kg/m2 527090. 32 g 97.8 [degF] 62 /min 98 % 164/52 mm[Hg] 165/78 mm[Hg] 164/64 mm[Hg] [employer] 4 09:13:37 Social History Question Answer Notes LastModified by Organizat ion Details LastModified Time Tobacco Smoking Status Never Smoker Ly ar[place]ula, [employer] 10/24/2022 10:19:10 Do You Have An [...] Do You Have A Medical Power Of House Decorator? No Information not available 09/23/2022 What Was The Date Of Your Most Recent Tobacco Screening? 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 [id number] Information not available 09/23/2022 Do you have [...] ICD10 Code Diagnosis IMO Codes Diagnosis Note [id number] Shakira Todd[address] [address] 09/23/2022 07:58:50 09/23/2022 09:13:24 Benign essential hypertension 4483951 I10 Take all BP meds as directed. DASH diet, exercise and weight loss encouraged . Hyperlipidemia 11428972 E78.5 I again today recommende d he take Zetia since he is statin intolerant and he refused. Prostate s pecific antigen above reference range 455762824 R97.20 General ex amination of patient 907534842 Z00.00 Body mass index 30+ - obesity 836421301 Z68.35 [id number] [address] 11/10/2022 15:03:48 11/10/2022 15:44:03 Paroxysmal atrial fibrillation 517913144 I48.0 Increase coreg to 12.5 mg BID. Continue Plavix and ASA. Jaundice 17104638 R17 Avoid all ETOH, tylenol products, herbals, and seafood. Handwashin g emphasized . Obtain Liver and Hep panels and Liver US. If his sx progress, he was inst to proceed to ER. [id number] Shakira Todd[address] [address] 11/21/2022 12:50:03 11/21/2022 13:50:32 Hyperglycemia 90176171 R73.9 Low carb diet, exercise and weight loss encouraged . A1c is NML today. Gout 38668783 M10.9 Needs refill Essential hypertension 47723565 I10 Needs refills [id number] [place] [address] 03/20/2023 08:37:02 03/20/2023 10:24:13 Paroxysmal atrial fibrillation 622988536 I48.0 Continue aspirin and Plavix for now and refer back to cardiology . I do hope to stop Plavix and start Eliquis once he has had follow-up with urology and the catheter is removed. He must obtain sleep study. Postoperative visit 1322 64603 L90 Continue to monitor for signs symptoms of infection. Push adequate fluids. Slowly increase daily activity and exercise tolerance. [id number] Shakira Todd [place] [address] 03/30/2023 12:55:37 03/30/2023 13:48:07 Superficial thrombophlebitis 5534211 I80.9 Left forearm. Elevate, continue keflex and apply warm compresses . Decrease metoprolol to BID... [id number] Shakira Todd [place] [address] 04/10/2023 08:42:12 04/10/2023 09:45:02 Paroxysmal atrial fibrillation 575768290 I48.0 Continue Xarelto and rate controller s. [...] seriousnes s of his cardiac condition. Hyperglycemia 47994505 R 73.9 Low carb diet, exercise and weight loss encouraged . [id number] [place] [address] 09/23/2023 08:03:35 09/23/2023 08:54:27 Benign essential hypertension 0948912 I10 Take all BP meds as directed. DASH diet, exercise and weight loss encouraged . Paroxysmal atrial fibrillation 513193946 I48.0 Has completed watchman and cardiac ablation. Hyperlipidemia 16180235 E78.5 Continue crestor Obstructiv e sleep apnea syndrome 40366347 G47.33 He has severe KARISHMA and continues to adamantly refuse CPAP. Gastroesop hageal reflux disease without esophagitis 041804912 K21.9 Continue PPI Fall on sa me level from slipping, tripping or stumbling 305324440 W01.0XXA Falls safety encouraged . Benign pro static hyperplasia 471704887 N40.0 Inst him to follow up with his Urologist, check UA today. Rib pain 425597590 R07.8 1 Pain of le ft hip joint 8058873102 54300 M25.552 Pain of le ft shoulder joint 2766350334 3248766 M25.512 Gout 41271655 M10.9 Needs refill Atheroscle rosis of coronary artery without angina pectoris 7131656389 46111 I25.10 Carotid ar juan pablo stenosis 20325682 I65.29 Body mass index 30+ - obesity 859083772 Z68.35 [id number] [place] [phone] 03/30/2024 13:23:10 03/30/2024 14:24:43 Essential hypertension 15367094 I10 Add amlodipine 2.5 mg daily, continue benazapril . Weight loss, DASH diet, and BP control emphasized . Mixed hyperlipidemia 267 680338 E78.2 Continue statin Diabetes m ellitus screening 073825931 Z13.1 Gastroesop hageal reflux disease without esophagitis 567867711 K21.9 Continue PPI Paroxysmal atrial fibrillation 425445232 I48.0 Has completed watchman and cardiac ablation. Atheroscle rosis of coronary artery without angina pectoris 9626000572 98853 I25.10 Continue plavix Carotid ar juan pablo stenosis 27481837 I65.29 Contnue statin and plavix. Gout 01991174 M10.9 Needs refill Body mass index 30+ - obesity 864214915 Z68.35 [id number] Shakira Todd, MACHINE [employer] [address] [address] 06/28/2024 08:55:59 06/28/2024 10:23:48 Type 2 diabetes mellitus without complication 185797506 E11.9 Patient was argumentat peter when I explained his A1c result and now Type 2 diabetes diagnosis. He stated I feel fine, I don't have diabetes, you all just want more money and I'm not taking your diabetes pills. I gave him a handout from [facility] explaining A1c limits and diabetes diagnosis. Low [...] Puri Member ID Guarantor Name 06/28/2024 2 MEDICAID-[facility] HEALTH CHOICES - FFS/TRADITIO NAL Noel Tyson [id number] Noel Tyson 06/28/2024 1 [place] [id number] 1 Noel Tyson [id number] Noel Tyson 09/27/2024 1 [place] [id number] 1 Noel Tyson [id number] Noel Tyson 06/28/2024 2 [employer] [place] (MEDICAID [place]) Noel Tyson [id number] [facility] Notes Date Note Type Note Provider Name and Address Organization Details Recorded Time 3 text/htm l Emergency Department Follow-Up RecordReported by PatientEmergency Room Follow-Up RecordFor discharge information, patient reportsname of ed __ ([facility])andemergency department discharge date: (please enter in format 'mm/dd/yyyy') (03/26/2023).Patient presents for emergency room follow-up he was seen at the [facility] due to the superficial phlebitis on his [...] twice per day. Shakira Todd APRN [address] [place], [address], [employer] 03/30/2023 18:01:08 3 text/htm l Hospitalization Contact RecordReported by PatientHospitalization Contact RecordFor follow up, patient reportshospital: __ ([facility])anddate of discharge: (please enter in format 'mm/dd/yyyy') (04/02/2023).Patient with history of atrial fibs and hypertension. Presented to the emergency room at [facility] on above day after he developed A-fib with RVR with shortness of breath and dizziness and a heart rate of 160s. He recently underwent a radical prostatectomy at the [facility] and was off Xarelto as he still [...] cardiology at . Shakira Todd APRN [address] [place], [address], [employer] 04/12/2023 17:59:18 4 text/htm l HyperlipidemiaReported [...] been scoped and sees GI. Shakira Todd, MACHINE STEMMER [address] [place], [address], [facility], [facility]. 09/23/2023 10:32:20 4 text/htm l HyperlipidemiaReported by [...] low back pain. Shakira Todd APRN [address] [place], [address], [employer] 04/17/2024 19:39:23 4 text/htm l ROS [...] yet this AM as he stayed at [facility] last PM and did not take his meds with him. Shakira Todd APRN [address] [place], [address], [employer] 06/28/2024 15:18:43
--- OUTSIDE RECORDS SUMMARY | 2025-08-21 10:45 | XMS_ITS | Referral Summary ---
Author Organization [employer] ([place], [place], [place], [place], [place]) Address [address] [place] [address] Care Team Providers Care Analysis Internship Name Role Phone Unavailable Primary Care Provider [...]
--- OUTSIDE RECORDS SUMMARY | 2025-08-21 10:45 | XMS_ITS | Encounter Summary ---
Author Organization [email or web address] ([place], [place], [place], [place], [place]) Address [address] [place] [address] Care Team Providers Care Crib Clerk Name Role Phone Unavailable Primary Care Provider Unavailabl e Encounter Details Date Type Department Care Team (Late st Contact Info) Description 12/20/2020 Transcribed Document [facility] [place] [facility] [address] [place] [address] ProviderStan MD [address] [place] [address] Social History Tobacco Use Types [...] TYSON /Sex: 1965 Male Med Rec #: [id number] Physician: JOHN TRINH MD Financial #: [id number] Pt. Type: O Room/Bed: Admit/Disch: 12/20/20 04:08:00 - Institution: [facility] IntraOp Case Attendance Entry 1 Entry 2 Entry 3 Case Attendee JOHN TRINH MD SNELLING, LAUREL, PA-C OTHER, ATTENDEE #1 Role Performed Surgeon/Proceduralist, Physician department assistant Vendor First Time In 12/20/20 15:40:00 [...] OTHER, ATTENDEE #2 CIPRIANO BRANNON GARNER, ANGELA, BATCH MIXING TRUCK DRIVER -ANS Role Performed Staff - Other Anesthesiologist of BATCH MIXING TRUCK DRIVER/Nurse Hotel Staff Member Record Time In 12/20/20 15:40:00 12/20/20 15:40:00 [...] ST Shaffer, Andrea L, Rn-Traveler Role Performed Medical Cost Consultant Scrub, First Intelligence Support Officer, First Time In 12/20/20 15:40:00 12/20/20 15:40:00 [...] [facility] IntraOp Case Attendance Audit 12/20/20 18:37:52 Round Boner: [id number] Modifier: [id number] <+> Time Out 1 <*> Procedure [...] Procedure Cervical Discectomy Fusion Anterior 12/20/20 18:18:03 Round Boner: [id number] Modifier: [id number] <+> 1 Procedure 2 <*> Procedure Cervical [...] Procedure Cervical Discectomy Fusion Anterior 12/20/20 17:50:24 Round Boner: [id number] Modifier: [id number] <+> Time Out 5 <*> Procedure Cervical Discectomy Fusion Anterior 6 <+> Time Out 6 <*> Procedure Cervical Discectomy Fusion Anterior <+> 10 Case Attendee <+> 10 Role Performed <+> 10 Time In <+> 10 Procedure 12/20/20 16:57:10 Round Boner: [id number] Modifier: [id number] <+> 1 Time In 2 <+> Time [...] Procedure Cervical Discectomy Fusion Anterior 12/20/20 16:27:02 Round Boner: [id number] Modifier: [id number] <+> 2 Case Attendee <+> 2 Role [...] [facility] IntraOp Case Times Audit 12/20/20 18:37:51 Round Boner: [id number] Modifier: [id number] <+> 1 Out Room Time <+> 1 Stop Time 12/20/20 18:18:01 Round Boner: [id number] Modifier: [id number] <+> 1 Stop Time [facility] IntraOp Cautery [...] Count Performed By Francois Herring Shaffer, Andrea L (RN) Rn-Traveler Rn-Traveler Last Modified By: Francois [...] IntraOp Dressing and Packing Audit 12/20/20 18:17:49 Round Boner: [id number] Modifier: [id number] <*> Type Dressing 1 <*> Location [...] Rn-Traveler 12/20/20 16:31:19 [facility] IntraOp General Case Roper Operator 1 Case Information OR OR 01 S[facility] Case Level 1 Room Verified Yes Wound Class I - Clean Specialty Neurosurgery Anesthesia Type General ASA Class 2 Diagnosis Preop Diagnosis ADJACENT DISC DISEASE Postop Same As Preop No Postop Diagnosis SEE SURGEON'S OPERATIVE NOTE Last Modified By: Francois Herring Rn-Traveler 12/20/20 16:33:28 [facility] IntraOp General Case Data Audit 12/20/20 16:33:28 Round Boner: [id number] Modifier: [id number] <+> 1 Postop Diagnosis [facility] IntraOp Implant Log Entry 1 Entry 2 Entry 3 Type Tissue Implant Implant (Synthetic) Implant (Synthetic) (Biologic) Implant Log Implant Type Hardware Hardware Tissue Implant Type Implant DBM PUTTY BIOREADY [place] CAGE 8mm 14mm SCREWS Identification [id number] Description Implant Quantity 1 1 3 Implant Site CERVICAL SPINE CERVICAL SPINE CERVICAL SPINE Implant [id number] Identification Model Number Implant [id number] Identification Serial Number Implant [id number] Identification Lot Number Implant [employer] Identification Duct Layer Helper Name: Implant [id number] Identification Catalog Number Implant Size 2.5CC 8mm 14mm Implant Has an Yes No No Expiration Date Implant Expiration 08/13/23 Date Wasted Radioactive Material Time Implanted Tissue Implant Continue for Tissue Implant Documentation Tissue Identification Number Graft Prep Per Duct Layer Helper Instructions: Tissue Preparation Method: Reconstitution Solution: Reconstitution Solution Lot Number Reconstitution Solution Expiration Date: Thawing Solution Thawing Solution Lot Number Thawing Solution Expiration Date Preparation Materials, Other Preparation Materials, Other Lot Number Preparation Materials, Other Expiration Date Tissue Prepared/Processed By Duct Layer Helper Paperwork Completed Implant Type Comment Last Modified By: Francois Herring, Francois Herring, Francois Herring, Rn-Traveler 12/20/20 Rn-Traveler 12/20/20 Rn-Traveler 12/20/20 16:42:20 18:42:39 18:42:39 E IntraOp Implant Log Audit 12/20/20 18:42:39 Round Boner: [id number] Modifier: [id number] <+> 2 Implant Identification Description <+> 2 Implant Identification Duct Layer Helper Name: <+> 2 Implant Size <+> 2 [...] Intra Op Sign Out Audit 12/20/20 18:18:46 Round Boner: [id number] Modifier: [id number] <+> 1 RN Sign Out Signature Date/Time [...] [facility] IntraOp Surgical Procedures Audit 12/20/20 18:18:40 Round Boner: [id number] Modifier: [id number] <*> Procedure Cervical Discectomy Fusion Anterior 1 <+> Specialty 12/20/20 18:18:30 Round Boner: [id number] Modifier: [id number] <*> Procedure Cervical Discectomy Fusion Anterior [facility] IntraOp Temp Regulation Devices Entry 1 Temp Regulation Temperature Forced Air Warming Regulation Device device Temperature Lower body Regulation Site Temperature ROSALINDA STODDARD, ERNESTO Regulation Device Applied by Last Modified By: [...] Fluoroscopy Fluoroscopy Type C-Arm Site CERVICAL SPINE Edi Developer Name FANI PAGAN Protective Devices Yes Used Last Modified By: [...]
--- OUTSIDE RECORDS SUMMARY | 2025-08-21 10:46 | XMS_ITS | Clinical Summary ---
Author Organization [facility] Address [address] [place] [address] Care Team Providers Care Vocational Aide Name Role Phone Feng Garcia MD Unavailable Raf Rocha DO Primary Care Provider [phone] Allergies Active Allergy Reactions Criticality Noted Date [...] Glucose Sensor (FreeStyle Konstantin 3 Plus Sensor) [facility] [place] as directed 12/07/19 25 Active amLODIPine [...] left atrial appendage closu re device 12/15/2023 Abscess of chest wall 08/04/2023 Acute cholecystitis 08/04/2023 Carotid artery stenosis 08/04/2023 CHF (congestive heart failure) 08/04/2023 Cholelithiasis 08/04/2023 Degenerative joint disease (DJD) of lumbar spine 08/04/2023 Diastolic dysfunction 08/04/2023 Diverticulosis 08/04/2023 Epididymitis 08/04/2023 Eye problem 08/04/2023 Fever 08/04/2023 HHD (hypertensive heart disease) 08/04/2023 Hx laparoscopic cholecystectomy 08/04/2023 S/P prostatectomy 08/04/2023 Post-operative wound abscess 08/04/2023 Prostatic mass 08/04/2023 Reactive airway disease 08/04/2023 Lumbar radiculopathy 08/04/2023 BPH with obstruction/lower urinary tract symptom s 02/17/2023 Overview (03/14/2023): 03/13: prostatectomy EBL 2.5L CBI per primary team Received 6L crystalloid in OR, required phenylephrine drip post operatively, now off Male erectile dysfunction, unspecified Poor urinary stream 01/12/2023 Urgency of urination 01/12/2023 Atrial premature depolarization 12/22/2022 Overview (12/02/2023): Follows with cardiology, was prescribed plavix/eliquis but continued to [...] Problem Code: R97.20; Problem Code Type: ICD-10; Hypercholesterolemia 02/13/2020 Overview [...] Code Type: ICD-10; Gallbladder calculus with ac poarch cholecystitis and no obstruction 06/15/2018 Overview (08/04/2023): [...] to procedure Bilateral carpal tunnel syndrome 03/24/2016 Degenerative joint disease of shoulder region Herniated cervical disc 03/11/2016 Anxiety and depression 02/22/2016 Resolved Problems Problem Noted Date Diagnosed Date Resolved Date S/P ablation of atrial fibrillation 12/14/2023 05/14/2025 Colitis 08/04/2023 05/14/2025 Epigastric pain 08/04/2023 05/14/2025 Fatigue 08/04/2023 05/14/2025 Gastroenteritis 08/04/2023 05/14/2025 Influenza B 08/04/2023 05/14/2025 Lung nodules 08/04/2023 08/06/2025 UTI (urinary tract infection) 08/04/2023 05/14/2025 Hypovolemic shock 03/13/2023 03/16/2023 Overview (03/14/2023): EBL [...] ten don, right, initial encounter 10/01/2021 03/13/2023 Abdominal pain 02/13/2020 05/14/2025 Overview (08/04/2023): Problem Code: R10.9; Problem Code Type: ICD-10; Pain in joint of left shoulder 03/24/2016 05/14/2025 Encounters Date Type Department Care Team Description 06/27/2025 Telephone [facility] [address], [address] [place] [id number] Feng Garcia MD 06/24/2025 Results Follow-Up [facility] [address], [address] [place] [address] Feng Garcia MD 06/13/2025 2:54 PM EDT - 06/13/2025 11:59 PM EDT Hospital Encounter [facility] [address], [address] [place] [phone] Left renal mass Discharge Disposition: Home or Self Care 06/13/2025 Travel 06/04/2025 Travel 06/02/2025 Telephone [facility] [address], [address] [place] [address] authorization from Last 3 Months Family History Medical [...] drink first t laly in the morning (EYE-DRUG PURCHASER) to steady your nerves or to get [...] 03/13/2025 4:44 PM EDT Plan of Treatment Upcoming Encounters Date Type Department Care Team (Late st Contact Info) Description 01/18/2026 8:40 AM EDT Appointment [facility] [address] [place] [address] 01/18/2026 10:45 AM EDT Office Visit [facility] [address], [address] [place] [address] Tyler Garcia MD [address] [place] [address] Health Maintenance Due Date Last Done Comments [facility]-Diabetes: Hemoglobin A1C 1965 [facility]-Infant/Child/Adol SDOH Screenings 1965 [id number] Vaccine (#1) 1966 Diabetes: Dental Exam 02/15/1976 [facility]- SDOH Screenings 02/15/1984 [facility]-Adult SDOH Screenings 02/15/1984 [facility]-DTaP,Tdap,and Td Vaccines (1 - Tdap) 1985 [facility]-Hepatitis A Vaccines (1 of 2 - Risk 2-dose series) 1985 [facility]-Hepatitis B Vaccines (1 of 3 [...] 01/30/2025, 01/10/2025, Additional history exists HPV Vaccines (No Doses Required) Completed [facility]-HIB Vaccines Aged Out No longer e [...] [employer] Medical Devices Implanted Type Area Ophthalmic Nurse Device Identifier Shelf Expiration Date Model / Serial / Lot Plate Plate Neck Stent Stent Left: Kidney Wallstent-10/24 Implanted:10/2016 (Quantity not on file) Stent Carotid Stent Ureteral Double Pigtail Pos 6fr 24cm - [id number] Implanted:Qty : 1 on 11/04/2022 by Vviek Romeo MD at [facility] [id number] 07/03/2024 [id number] / / [id number] Stent Ureteral Double Pigtail Pos 5fr 24cm - Snone - [id number] Implanted:Qty : 1 on 11/18/2022 by Abebe Dowling MD at [facility] Stent Left: Ureter [id number] 04/23/2024 [id number] / NONE / [id number] Watchman Fxd Curve Dble 20mm - [id number] Implanted:Qty : 1 on 06/24/2023 by Alvarado Dey MD at [facility] CSS99-139 [id number] 07/03/2025 [id number] / / [id number] Watchman Flx Silke Closure 27mm - [id number] Implanted:Qty : 1 on 06/24/2023 by Alvarado Dey MD at [facility] N/A: Heart CSS99-139 [id number] 02/03/2026 [id number] / / [id number] Watchman Flx Procedure Device - [id number] Implanted:Qty : 1 on 06/24/2023 by Alvarado Dey MD at [facility] [id number] / / Procedures Procedure Name Priority Date/Time Associated Diagnosis Comments CT CHEST W IV CONTRAST Routine 3:41 PM EDT Left renal mass CT RENAL MASS W AND WO IV CONTRAST Routine 06/13/2025 3:41 PM EDT Left renal mass POCT CREATININE ISTAT UNSOLICITED RESULTS Routine 06/13/2025 3:06 PM EDT HEPATITIS C ANTIBODY - ED W/REFLEX TO HCV QUANT PCR STAT 11/10/2024 12:51 PM EDT ED HIV 1/2 ANTIBODY/ANTIGEN SCREEN WITH REFLEX TO HIV I/II DIFFERENTIATION STAT 11/10/2024 12:51 PM EDT from Last 3 Months or Most Recently Relevant to Health Maintenance Results * CT Renal Mass w and wo IV Contrast (06/13/2025 3:41 PM EDT) Anatomical Region Laterality Modality Kidney Computed Tomogra phy Impressions 06/14/2025 12:11 AM EDT Post left upper pole cryoablation. No recurrent disease. Stable nonspecific noncalcified small left lung nodule, could be postinflammatory. No convincing metastatic disease. Findings concerning for underlying liver fibrosis/cirrhosis with portal hypertension. CRITICAL RESULT: No. COMMUNICATION: Per this written report. Drafted by Asya Arnold MD on 06/13/2025 11:50 PM Final report signed by Asya Arnold MD on 06/14/2025 12:11 AM Narrative 06/14/2025 12:11 AM EDT CLINICAL INDICATION: Renal mass/renal cell carcinoma TECHNIQUE: Multiple pre-contrast axial CT images were obtained from lower chest through upper pelvis, followed by multiple axial CT images of the abdomen following the administration of IV contrast, Omnipaque 300, 100 mL. Images were obtained in the corticomedullary and excretory phases. Multiple CT images of the chest were also obtained following administration of intravenous contrast. Reformatted images in the coronal and sagittal planes were generated from the axial data set to facilitate diagnostic accuracy. Total DLP (Dose-Length Product): 1628.92 mGy.cm (accession [id number]), 1628.92 mGy.cm (accession [id number]). Please note: The reported value represents the total of one or more individual components during the CT acquisition on this date and at this time, and as such, the same value may appear in more than one CT report depending on the interpreting/reporting physicians. COMPARISON: CT renal mass protocol 04/11/2025 CT chest 01/16/2025 FINDINGS: Kidneys: Precontrast imaging demonstrates nonobstructing 4 mm calculus in the right interpolar calyx. After the administration of intravenous contrast material both kidneys concentrate and excrete contrast promptly and symmetrically. Exophytic slightly heterogeneous 10 mm low-density area in the right kidney, unchanged compared to prior; too small to characterize (series 6, image 67). Additional tiny subcentimeter hypodense foci in both kidneys with no interval change, presumably benign. Essentially resolved left-sided subcapsular hematoma. Ablation zone measures 3.3 x 2.6 cm on image 49 of series 6, previously 3.7 x 3.3 cm. No internal enhancement to suggest recurrent disease. Ablation zones abuts the underlying calyx. No leak of excreted contrast. Left renal vein and IVC are patent. Left renal artery stent present. Remaining Solid Abdominal Organs: Liver/Gallbladder/Biliary System: Mild hepatic steatosis. Minimal fissural widening (image 37, series 2) and subtle nodular surface for example along the anterior liver on image 33 of series 2 concerning for superimposed fibrosis. No focal liver lesion. Cholecystectomy. No intra- or extra-hepatic biliary ductal dilatation. Spleen: Spleen measures 14.1 cm in AP dimension, mildly enlarged. The spleen enhances homogeneously. A small splenorenal shunt is seen. Pancreas: Normal Adrenals: The adrenals are morphologically unremarkable. GI Tract/Mesentery/Peritoneum: Duodenal diverticulum. No bowel dilatation or suspicious wall thickening. Large bowel diverticulosis involving the transverse, left and sigmoid colon. No acute or suspicious findings in the mesentery/peritoneum. Free Fluid: No ascites. Lymph Nodes and Vasculature: No lymphadenopathy by CT size criteria. The abdominal aorta is normal in caliber. Musculoskeletal and Body Wall: No clearly aggressive bone lesions or significant body wall findings. Vertebral hemangioma in one of the lower lumbar vertebra. Chest: Lymph Nodes and Mediastinum: No lymphadenopathy by CT size criteria. Small thin-walled water density lesion measuring 15 mm anterior to the ascending aorta likely incidental thymic cyst or pericardial cyst. No suspicious thyroid findings. Cardiovascular: The heart is normal in caliber. Left atrial appendage occlusion device. Thoracic great vessels are patent. No pericardial effusion. Lungs and Pleura: Stable 6 mm left upper lobe nodule on image 52 of series 5. No other lung nodules. No pleural effusions or suspicious thickening. Musculoskeletal and Body Wall: No clearly aggressive bone lesions. Procedure Note Asya Arnold MD - 06/14/2025 CLINICAL INDICATION: Renal mass/renal cell carcinoma TECHNIQUE: Multiple pre-contrast axial CT images were obtained from lower chestthrough upper pelvis, followed by multiple axial CT images of the abdomenfollowing the administration of IV contrast, Omnipaque 300, 100 mL. Imageswere obtained in the corticomedullary and excretory phases. Multiple CTimages of the chest were also obtained following administration ofintravenous contrast. Reformatted images in the coronal and sagittalplanes were generated from the axial data set to facilitate diagnosticaccuracy. Total DLP (Dose-Length Product): 1628.92 mGy.cm (accession [id number]),1628.92 mGy.cm (accession [id number]). Please note: The reported valuerepresents the total of one or more individual components during the CTacquisition on this date and at this time, and as such, the same value mayappear in more than one CT report depending on the interpreting/reportingphysicians. COMPARISON: CT renal mass protocol 04/11/2025 CT chest 01/16/2025 FINDINGS: Kidneys: Precontrast imaging demonstrates nonobstructing 4 mm calculus inthe right interpolar calyx. After the administration of intravenouscontrast material both kidneys concentrate and excrete contrast promptlyand symmetrically. Exophytic slightly heterogeneous 10 mm low-density areain the right kidney, unchanged compared to prior; too small tocharacterize (series 6, image 67). Additional tiny subcentimeter hypodensefoci in both kidneys with no interval change, presumably benign. Essentially resolved left-sided subcapsular hematoma. Ablation zonemeasures 3.3 x 2.6 cm on image 49 of series 6, previously 3.7 x 3.3 cm. Nointernal enhancement to suggest recurrent disease. Ablation zones abutsthe underlying calyx. No leak of excreted contrast. Left renal vein andIVC are patent. Left renal artery stent present. Remaining Solid Abdominal Organs: Liver/Gallbladder/Biliary System: Mild hepatic steatosis. Minimal fissuralwidening (image 37, series 2) and subtle nodular surface for example alongthe anterior liver on image 33 of series 2 concerning for superimposedfibrosis. No focal liver lesion. Cholecystectomy. No intra- orextra-hepatic biliary ductal dilatation. Spleen: Spleen measures 14.1 cm in AP dimension, mildly enlarged. Thespleen enhances homogeneously. A small splenorenal shunt is seen. Pancreas: Normal Adrenals: The adrenals are morphologically unremarkable. GI Tract/Mesentery/Peritoneum: Duodenal diverticulum. No bowel dilatationor suspicious wall thickening. Large bowel diverticulosis involving thetransverse, left and sigmoid colon. No acute or suspicious findings in themesentery/peritoneum. Free Fluid: No ascites. Lymph Nodes and Vasculature: No lymphadenopathy by CT size criteria. Theabdominal aorta is normal in caliber. Musculoskeletal and Body Wall: No clearly aggressive bone lesions orsignificant body wall findings. Vertebral hemangioma in one of the lowerlumbar vertebra. Chest: Lymph Nodes and Mediastinum: No lymphadenopathy by CT size criteria. Smallthin- walled water density lesion measuring 15 mm anterior to the ascendingaorta likely incidental thymic cyst or pericardial cyst. No suspiciousthyroid findings. Cardiovascular: The heart is normal in caliber. Left atrial appendageocclusion device. Thoracic great vessels are patent. No pericardialeffusion. Lungs and Pleura: Stable 6 mm left upper lobe nodule on image 52 of series5. No other lung nodules. No pleural effusions or suspicious thickening. Musculoskeletal and Body Wall: No clearly aggressive bone lesions. IMPRESSION: Post left upper pole cryoablation. No recurrent disease. Stable nonspecific noncalcified small left lung nodule, could bepostinflammatory. No convincing metastatic disease. Findings concerning for underlying liver fibrosis/cirrhosis with portalhypertension. CRITICAL RESULT: No. COMMUNICATION: Per this written report. Drafted by Asya Arnold MD on 06/13/2025 11:50 PM Final report signed by Asya Arnold MD on 06/14/2025 12:11 AM Feng Garcia MD IMG CT PROCEDURES Final Result * CT Chest w IV Contrast (06/13/2025 3:41 PM EDT) Anatomical Region Laterality Modality Chest Computed Tomogra phy Impressions 06/14/2025 12:11 AM EDT Post left upper pole cryoablation. No recurrent disease. Stable nonspecific noncalcified small left lung nodule, could be postinflammatory. No convincing metastatic disease. Findings concerning for underlying liver fibrosis/cirrhosis with portal hypertension. CRITICAL RESULT: No. COMMUNICATION: Per this written report. Drafted by Asya Arnold MD on 06/13/2025 11:50 PM Final report signed by Asya Arnold MD on 06/14/2025 12:11 AM Narrative 06/14/2025 12:11 AM EDT CLINICAL INDICATION: Renal mass/renal cell carcinoma TECHNIQUE: Multiple pre-contrast axial CT images were obtained from lower chest through upper pelvis, followed by multiple axial CT images of the abdomen following the administration of IV contrast, Omnipaque 300, 100 mL. Images were obtained in the corticomedullary and excretory phases. Multiple CT images of the chest were also obtained following administration of intravenous contrast. Reformatted images in the coronal and sagittal planes were generated from the axial data set to facilitate diagnostic accuracy. Total DLP (Dose-Length Product): 1628.92 mGy.cm (accession [id number]), 1628.92 mGy.cm (accession [id number]). Please note: The reported value represents the total of one or more individual components during the CT acquisition on this date and at this time, and as such, the same value may appear in more than one CT report depending on the interpreting/reporting physicians. COMPARISON: CT renal mass protocol 04/11/2025 CT chest 01/16/2025 FINDINGS: Kidneys: Precontrast imaging demonstrates nonobstructing 4 mm calculus in the right interpolar calyx. After the administration of intravenous contrast material both kidneys concentrate and excrete contrast promptly and symmetrically. Exophytic slightly heterogeneous 10 mm low-density area in the right kidney, unchanged compared to prior; too small to characterize (series 6, image 67). Additional tiny subcentimeter hypodense foci in both kidneys with no interval change, presumably benign. Essentially resolved left-sided subcapsular hematoma. Ablation zone measures 3.3 x 2.6 cm on image 49 of series 6, previously 3.7 x 3.3 cm. No internal enhancement to suggest recurrent disease. Ablation zones abuts the underlying calyx. No leak of excreted contrast. Left renal vein and IVC are patent. Left renal artery stent present. Remaining Solid Abdominal Organs: Liver/Gallbladder/Biliary System: Mild hepatic steatosis. Minimal fissural widening (image 37, series 2) and subtle nodular surface for example along the anterior liver on image 33 of series 2 concerning for superimposed fibrosis. No focal liver lesion. Cholecystectomy. No intra- or extra-hepatic biliary ductal dilatation. Spleen: Spleen measures 14.1 cm in AP dimension, mildly enlarged. The spleen enhances homogeneously. A small splenorenal shunt is seen. Pancreas: Normal Adrenals: The adrenals are morphologically unremarkable. GI Tract/Mesentery/Peritoneum: Duodenal diverticulum. No bowel dilatation or suspicious wall thickening. Large bowel diverticulosis involving the transverse, left and sigmoid colon. No acute or suspicious findings in the mesentery/peritoneum. Free Fluid: No ascites. Lymph Nodes and Vasculature: No lymphadenopathy by CT size criteria. The abdominal aorta is normal in caliber. Musculoskeletal and Body Wall: No clearly aggressive bone lesions or significant body wall findings. Vertebral hemangioma in one of the lower lumbar vertebra. Chest: Lymph Nodes and Mediastinum: No lymphadenopathy by CT size criteria. Small thin-walled water density lesion measuring 15 mm anterior to the ascending aorta likely incidental thymic cyst or pericardial cyst. No suspicious thyroid findings. Cardiovascular: The heart is normal in caliber. Left atrial appendage occlusion device. Thoracic great vessels are patent. No pericardial effusion. Lungs and Pleura: Stable 6 mm left upper lobe nodule on image 52 of series 5. No other lung nodules. No pleural effusions or suspicious thickening. Musculoskeletal and Body Wall: No clearly aggressive bone lesions. Procedure Note Asya Arnold MD - 06/14/2025 CLINICAL INDICATION: Renal mass/renal cell carcinoma TECHNIQUE: Multiple pre-contrast axial CT images were obtained from lower chestthrough upper pelvis, followed by multiple axial CT images of the abdomenfollowing the administration of IV contrast, Omnipaque 300, 100 mL. Imageswere obtained in the corticomedullary and excretory phases. Multiple CTimages of the chest were also obtained following administration ofintravenous contrast. Reformatted images in the coronal and sagittalplanes were generated from the axial data set to facilitate diagnosticaccuracy. Total DLP (Dose-Length Product): 1628.92 mGy.cm (accession [id number]),1628.92 mGy.cm (accession [id number]). Please note: The reported valuerepresents the total of one or more individual components during the CTacquisition on this date and at this time, and as such, the same value mayappear in more than one CT report depending on the interpreting/reportingphysicians. COMPARISON: CT renal mass protocol 04/11/2025 CT chest 01/16/2025 FINDINGS: Kidneys: Precontrast imaging demonstrates nonobstructing 4 mm calculus inthe right interpolar calyx. After the administration of intravenouscontrast material both kidneys concentrate and excrete contrast promptlyand symmetrically. Exophytic slightly heterogeneous 10 mm low-density areain the right kidney, unchanged compared to prior; too small tocharacterize (series 6, image 67). Additional tiny subcentimeter hypodensefoci in both kidneys with no interval change, presumably benign. Essentially resolved left-sided subcapsular hematoma. Ablation zonemeasures 3.3 x 2.6 cm on image 49 of series 6, previously 3.7 x 3.3 cm. Nointernal enhancement to suggest recurrent disease. Ablation zones abutsthe underlying calyx. No leak of excreted contrast. Left renal vein andIVC are patent. Left renal artery stent present. Remaining Solid Abdominal Organs: Liver/Gallbladder/Biliary System: Mild hepatic steatosis. Minimal fissuralwidening (image 37, series 2) and subtle nodular surface for example alongthe anterior liver on image 33 of series 2 concerning for superimposedfibrosis. No focal liver lesion. Cholecystectomy. No intra- orextra-hepatic biliary ductal dilatation. Spleen: Spleen measures 14.1 cm in AP dimension, mildly enlarged. Thespleen enhances homogeneously. A small splenorenal shunt is seen. Pancreas: Normal Adrenals: The adrenals are morphologically unremarkable. GI Tract/Mesentery/Peritoneum: Duodenal diverticulum. No bowel dilatationor suspicious wall thickening. Large bowel diverticulosis involving thetransverse, left and sigmoid colon. No acute or suspicious findings in themesentery/peritoneum. Free Fluid: No ascites. Lymph Nodes and Vasculature: No lymphadenopathy by CT size criteria. Theabdominal aorta is normal in caliber. Musculoskeletal and Body Wall: No clearly aggressive bone lesions orsignificant body wall findings. Vertebral hemangioma in one of the lowerlumbar vertebra. Chest: Lymph Nodes and Mediastinum: No lymphadenopathy by CT size criteria. Smallthin- walled water density lesion measuring 15 mm anterior to the ascendingaorta likely incidental thymic cyst or pericardial cyst. No suspiciousthyroid findings. Cardiovascular: The heart is normal in caliber. Left atrial appendageocclusion device. Thoracic great vessels are patent. No pericardialeffusion. Lungs and Pleura: Stable 6 mm left upper lobe nodule on image 52 of series5. No other lung nodules. No pleural effusions or suspicious thickening. Musculoskeletal and Body Wall: No clearly aggressive bone lesions. IMPRESSION: Post left upper pole cryoablation. No recurrent disease. Stable nonspecific noncalcified small left lung nodule, could bepostinflammatory. No convincing metastatic disease. Findings concerning for underlying liver fibrosis/cirrhosis with portalhypertension. CRITICAL RESULT: No. COMMUNICATION: Per this written report. Drafted by Asya Arnold MD on 06/13/2025 11:50 PM Final report signed by Asya Arnold MD on 06/14/2025 12:11 AM Feng Garcia MD IMG CT PROCEDURES Final Result * (ABNORMAL) POCT creatinine (06/13/2025 3:06 PM EDT) Creatinine, Point of Care 1.3(H) 0.7 - 1.2 mg/dL 06/13/2025 3:10 PM EDT [facility] POCT eGFR 63 mL/min/1. 73m*2 06/13/2025 3:10 PM EDT HEALTHCARE LAB R And D Lab Technician ID Filemon Villanueva 06/13/2025 3:10 PM EDT [facility] Device ID [id number] 06/13/2025 3:10 PM EDT HEALTHCARE [facility] Comment 06/13/2025 3:10 PM EDT [facility] Comment:Testing performed on i-STAT at the point of care. Reported eGFRcr in mL/min/1.73m2 is based the CKD-EPI 2020 equation that does not use a race coefficient. Blood Venous blood specimen / Unknown 06/13/2025 3:06 PM EDT 06/13/2025 3:10 PM EDT us Generic Provider Poct LAB POINT OF CARE TEST DOCKED DEVICE UNSOLICITED RESULTS Final Result Performing Organization Address City/[facility] Co de Phone Number [facility] [address] [facility] [address] [place] [address] * ED HIV 1/2 Antibody/Antigen Screen w/Reflex to HIV 1/2 Differentiation (11/10/2024 12:51 PM EDT) [facility] HIV 1 & 2 Antibody/Antigen Screen Non Reactive Non Reactive 11/10/2024 1:34 PM EDT [facility] Comment:Screening for HIV 1 & 2 antibodies, and P24 antigen is NONREACTIVE. No confirmatory testing is required. Blood Venous blood specimen / Unknown Venipuncture / Unknown 11/10/2024 12:51 PM EDT 11/10/2024 1:01 PM EDT Kurt Doan MD LAB BLOOD ORDERABLES Final Result [facility] [address] [place] [address] * Hepatitis C Antibody - ED (11/10/2024 12:51 PM EDT) [facility] Hepatitis C Antibody Negative Negative 11/10/2024 1:30 PM EDT [facility] Blood Venous blood specimen / Unknown Venipuncture / Unknown 11/10/2024 12:51 PM EDT 11/10/2024 1:01 PM EDT Kurt Doan MD LAB BLOOD ORDERABLES Final Result Performing Organization Address City/State/[facility] Co de Phone Number [facility] [address] [place] [phone] from Last 3 Months or Most Recently Relevant to Health Maintenance Additional Health Concerns Active Problems Noted Date Diagnosed Date Autogenerated Problem 12/12/2024 Insurance [facility] Advance Directives * Full Code (Latest [...] Patient has decision-making capacity? Yes Care Teams Vocational Aide Relationship Specialty Start Date End Date Raf Rocha DO [facility] [address] [address] PCP - General 11/24/24 Feng Garcia MD [address] [place] [address] Surgeon Urology 11/24/24
--- OUTSIDE RECORDS SUMMARY | 2025-08-21 10:46 | XMS_ITS | Encounter Summary ---
Author Organization [facility] Address [address] [place] [address] Care Team Providers Care Director Inbound Sales Name Role Phone Shakira Todd APRN Primary Care Provider [phone] Feng Garcia MD Unavailable Raf Rocha DO Primary Care Provider [phone] Encounter Details Date Type Department Care Team (Late st Contact Info) Description 02/08/2024 Orders Only External Location [address] [place] [id number] Provider, External Social History Tobacco Use Types [...] drink first t laly in the morning (EYE-SENIOR INVESTMENT MANAGER) to steady your nerves or to [...] EDT Appointment [facility] [address] [place] [address] 01/18/2026 10:45 AM EDT Office Visit [facility] [address] [place] [address] Tyler Garcia MD [address] [place] [address] documented as of this encounter Procedures Procedure [...] documented as of this encounter Care Teams Director Inbound Sales Relationship Specialty Start Date End Date Shakira Todd APRN [id number] PCP - General 01/04/21 11/23/24 Raf Rocha DO [address] [facility] [address] [address] PCP - General 11/24/24 Feng Garcia MD [address] [facility] [address] [place] [address] Surgeon Urology 11/24/24 documented as of this encounter
--- OUTSIDE RECORDS SUMMARY | 2025-08-21 10:46 | XMS_ITS | Clinical Summary ---
Author Organization [facility] y[facility] Address [address] [place] [address] Care Team Providers Care Technical Consultant Name Role Phone Rolanda Acosta Payal LAW Primary Care Provider [phone] Allergies Active Allergy Reactions Criticality Noted Date [...] 02/15/2016 ZOSTER VACCINE (1 of 2) 02/15/2016 INFLUENZA VACCINE 03/24/2025 Insurance [employer] [facility] [employer] Care Teams Technical Consultant Relationship Specialty Start Date End Date Rolanda Acosta APRN [address] [place] [address] PCP - General Family Medicine 02/18/16
--- OUTSIDE RECORDS SUMMARY | 2025-08-21 10:46 | XMS_ITS | Encounter Summary ---
Author Organization Healthcare Address [address] [place] [address] Care Team Providers Care Software Test Specialist Name Role Phone Shakira Todd APRN Primary Care Provider [phone] Feng Garcia MD Unavailable Raf Rocha DO Primary Care Provider [phone] Reason for Visit * Reason Comments Med Refill Encounter Details Date Type Department Care Team (Late st Contact Info) Description 07/06/2023 Refill [facility] [address] [place] [address] Jamie Marino MD [address] [place] [address] Lower urinary tract symptoms (LUTS) [...] drink first t laly in the morning (EYE-REQUIREMENTS MANAGER) to steady your nerves or to [...] EDT Appointment [facility] [address] [place] [address] 01/18/2026 10:45 AM EDT Office Visit [facility] [address] [place] [address] Tyler Garcia MD [address] [place] [address] documented as of this encounter Visit Diagnoses [...] documented as of this encounter Care Teams Software Test Specialist Relationship Specialty Start Date End Date Shakira Todd APRN [id number] PCP - General 01/04/21 11/23/24 Raf Rocha DO [address] [place] [facility] [address] [place] [address] PCP - General 11/24/24 Feng Garcia MD [address] [facility] [address] [place] [address] Surgeon Urology 11/24/24 documented as of this encounter
--- OUTSIDE RECORDS SUMMARY | 2025-08-21 10:46 | XMS_ITS | Encounter Summary ---
Author Organization [facility] Address [address] [place] [address] Care Team Providers Care Low Pressure Boiler Tender Name Role Phone Shakira Todd APRN Primary Care Provider [phone] Feng Garcia MD Unavailable Raf Rocha DO Primary Care Provider [phone] Encounter Details Date Type Department Care Team ([facility] st Contact Info) Description 08/15/2024 Orders Only External Location [address] [place] [address] Provider, External Social History Tobacco Use Types [...] drink first t laly in the morning (EYE-PATIENT ASSISTANT) to steady your nerves or to get [...] EDT Appointment [facility] [address] [place] [address] 01/18/2026 10:45 AM EDT Office Visit [place] [facility] [address] [place] [address] Tyler Garcia MD [address] [place] [address] documented as of this encounter Procedures Procedure [...] documented as of this encounter Care Teams Low Pressure Boiler Tender Relationship Specialty Start Date End Date Shakira Todd APRN [address] PCP - General 01/04/21 11/23/24 Raf Rocha DO [address] [facility] [address] [address] PCP - General 11/24/24 Feng Garcia MD [address] [place] [address] Surgeon Urology 11/24/24 documented as of this encounter
--- OUTSIDE RECORDS SUMMARY | 2025-08-21 10:46 | XMS_ITS | Encounter Summary ---
Author Organization [facility] Address [address] [place] [address] Care Team Providers Care Reinforcement Maker Name Role Phone Shakira Todd APRN Primary Care Provider [phone] Feng Garcia MD Unavailable Raf Rocha DO Primary Care Provider [phone] Encounter Details Date Type Department Care Team (Late st Contact Info) Description 11/06/2024 Orders Only External Location [address] [place] [address] Arslan Villanueva MD [address] [address] Social History Tobacco Use Types [...] drink first t laly in the morning (EYE-LICENSED DIRECT ENTRY MIDWIFE) to steady your nerves or to get [...] EDT Appointment [facility]iology [address] [place] [address] 01/18/2026 10:45 AM EDT Office Visit [place] [facility] [address] [place] [address] Tyler Garcia MD [address] [place] [address] documented as of this encounter Procedures Procedure [...] documented as of this encounter Care Teams Reinforcement Maker Relationship Specialty Start Date End Date Shakira Todd APRN [address] PCP - General 01/04/21 11/23/24 Raf Rocha, [address] [place] [address] [place] [address] PCP - General 11/24/24 Feng Garcia MD [address] [place] [address] Surgeon Urology 11/24/24 documented as of this encounter
[2025-08-21 12:13] LABS: Vitamin B12 260 pg/mL (239-931)
[2025-08-22 12:14] LABS: Albumin 4.2 g/dL (2.9-4.4); Alpha-1-Globulin 0.2 g/dL (0.0-0.4); Alpha-2-Globulin 0.7 g/dL (0.4-1.0); Gamma Globulin 1.0 g/dL (0.4-1.8)
== END 2025-08-21 23:59 | disposition home or self-care (01) ==
LOC: LAB 10:31
PROVIDERS: PCP Internal Medicine; Visit Provider Specialist
DX: E11.42 Type 2 diabetes mellitus with diabetic polyneuropathy (principal); R20.0 Anesthesia of skin; R20.2 Paresthesia of skin; R25.2 Cramp and spasm; Z85.528 Personal history of other malignant neoplasm of kidney
CPT/HCPCS: 36415; 82607; 84155; 84165; 86334